=== PATIENT | female | born 1955 | race Caucasian/White ===

== ENCOUNTER 2023-07-04 11:39 | Outpatient (OUT) | payer MEDICARE, SELFPAY ==
--- NOTE | 2023-07-04 11:45 | MM_ITS ---
Patient: LILLIAM PACHECO Exam Date: 07/04/2023 : 1955 Gender:F Ordering : DR JEREMIAS LOW M.D. Admission #: [id number] Family : Order #: [id number] CLICK HERE TO VIEW EXAM RADIOLOGY REPORT PROCEDURE: MM TOMOSYNTHESIS SCREENING BI COMPARISON: MG MAMM SCREEN 3D DEYSI CAD, 06/01/2021. MG MAMM SCREEN DEYSI W CAD, 02/24/2019. MG MAMM DEYSI SCRN W CAD DIG, 05/05/2016. MAMMO DEYSI SCREEN, 12/05/2001. INDICATIONS: Screening Calculator Name NCI Breast Cancer Risk Assessment Tool 5 Year Breast Cancer Risk 4.00% Lifetime Breast Cancer Risk 13.30% Personal Breast Cancer No Personal Ovarian Cancer No Treatments None Family Cancers Mother with breast cancer at age ~30; Mother with lung cancer at age 61; Brother with sm. cell lung cancer at age 39; Brother with lung cancer at age 53; Brother with liver cancer at age 49; Grandmother-paternal with colon cancer at age ~60; Uncle-maternal with lung cancer at age ~50; Nephew with lung cancer at age 47. LOCATION: [facility] BREAST COMPOSITION: Heterogeneously dense,which may obscure small masses. FINDINGS: DIAGNOSTIC CATEGORY 2--BENIGN FINDING: RIGHT BREAST: No significant suspicious finding. Scattered benign-appearing calcifications are present. No significant change has occurred. LEFT BREAST: No significant suspicious finding. Scattered benign-appearing calcifications are present. No significant change has occurred. RECOMMENDATIONS: ROUTINE MAMMOGRAM AND CLINICAL EVALUATION IN 12 MONTHS. PLEASE NOTE: A NORMAL MAMMOGRAM DOES NOT EXCLUDE THE POSSIBILITY OF BREAST CANCER. A CLINICALLY SUSPICIOUS PALPABLE LUMP SHOULD BE BIOPSIED. Dictated by: Jacob Ortiz M.D. on 07/05/2023 at 11:49 Approved by: Jacob Ortiz M.D. on 07/05/2023 at 11:51
== END 2023-07-04 11:40 | disposition home or self-care (01) ==
LOC: MAMMO 11:39
PROVIDERS: PCP Internal Medicine; Visit Provider Internal Medicine
DX: Z12.31 Encounter for screening mammogram for malignant neoplasm of breast (principal); Z80.3 Family history of malignant neoplasm of breast; Z80.1 Family history of malignant neoplasm of trachea, bronchus and lung; Z80.0 Family history of malignant neoplasm of digestive organs
CPT/HCPCS: 77063; 77067

== ENCOUNTER 2023-08-07 13:50 | Outpatient (OUT) | payer MEDICARE, SELFPAY ==
--- NOTE | 2023-08-07 13:56 | CT_ITS ---
[address] [address] Patient Name: LILLIAM PACHECO MRN: [id number] date: 1955 Sex: F Assigned Patient Location: CT Current Patient Location: CT Accession/Order Number: [id number] Exam Date: 08/07/2023 14:03 Report Date: 08/07/2023 23:03 At the request of: IRENE MENDES Procedure: CT chest wo con EXAMINATION: CT chest wo con HISTORY: Recurrent Pneumonia J18.9 ; follow-up pneumonia; shortness of breath COMPARISON: CT chest 02/07/2023 TECHNIQUE: Multi-planar CT images were obtained without and/or with IV contrast as indicated by examination type. Axial, Coronal, and Sagittal images. Dose reduction techniques were achieved by using automated exposure control and/or adjustment of mA and/or kV according to patient size and/or use of iterative reconstruction technique. FINDINGS: LUNGS: Marked emphysematous changes bilaterally in stable biapical pleural scarring. Clearing of previously seen opacities within posterior lateral right upper lobe. PLEURA: No mass, effusion, or pneumothorax. VASCULATURE: No abnormality. SALIMA: No mass or adenopathy. MEDIASTINUM: No mass or adenopathy. CARDIAC: Atherosclerotic coronary artery disease. No cardiac enlargement or pericardial effusion. AORTA: No aneurysm or dissection. CHEST WALL: No mass or axillary adenopathy. BONES: Subacute, healing fractures of the right ninth rib and the left 5th through 10th ribs. LIMITED ABDOMEN: No suspicious findings Limited images of the upper abdomen. OTHER: Negative. CT/CT chest wo con IMPRESSION: 1. Clearing of previously seen mild infiltrates. 2. Chronic marked emphysematous changes. 3. Multiple bilateral subacute healing rib fractures. Electronically authenticated by: WESTLEY COLLINS Date: 08/07/2023 23:03
== END 2023-08-07 13:51 | disposition home or self-care (01) ==
LOC: CT 13:50
PROVIDERS: PCP Internal Medicine; Visit Provider Internal Medicine Sleep Medicine
DX: J18.9 Pneumonia, unspecified organism (principal)
CPT/HCPCS: 71250

== ENCOUNTER 2023-09-10 15:40 | Observation (INO) | payer MEDICARE, OTHER, SELFPAY ==
[2023-09-10] VITALS (21 sets, daily range): BP systolic 133–164; BP diastolic 87–114; PULSE 83–97; RESP 13–24; TEMP 36.7–36.8; O2SAT 92–100; BMI 22.3
--- NOTE | 2023-09-10 15:59 | ECG_ITS ---
[facility] Test Date: 2023-09-10 Pat Name: LILLIAM PACHECO Department: Room: - Gender: Female [place]: : 1955 Requested By: JEREMIAS LOW Order Number: [id number] Reading MD: SANDEEP HUTCHINSON Measurements Intervals [place] Rate: 91 P: 80 DE: 172 QRS: 80 QRSD: 72 T: 70 QT: 346 QTc: 395 Interpretive Statements 1100 Sinus rhythm 9110 normal ECG No previous ECG available for comparison Electronically Signed On 09-11-2023 7:10:16 EST by SANDEEP HUTCHINSON
--- NOTE | 2023-09-10 15:59 | XR_ITS ---
The [address] [address] Patient Name: LILLIAM PACHECO MRN: [id number] date: 1955 Sex: F Assigned Patient Location: ER Current Patient Location: ER Accession/Order Number: [id number] Exam Date: 09/10/2023 16:09 Report Date: 09/10/2023 16:43 At the request of: HARSH SANCHEZ Procedure: XR chest 1V EXAM: XR chest 1V HISTORY: . SOB, COPD . COMPARISON: 01/22/2023 TECHNIQUE: Single view of the chest. FINDINGS: Heart and vascularity are unremarkable. Left lung is unremarkable. There is a small amount of increased density in the right cost phrenic angle. Right upper lobe is unremarkable. Atherosclerotic changes of the thoracic aorta are noted. XR/XR chest 1V Impression: 1. Small amount of increased density in the right costophrenic angle most likely representing atelectasis. Less likely would be an early infiltrate. 2. The remainder of the lung ambrocio are unremarkable. Electronically authenticated by: SILVINO JANE Date: 09/10/2023 16:43
--- NOTE | 2023-09-10 16:00 | ED.SOB1 ---
HPI - SOB/Dyspnea General Chief Complaint: Shortness of Breath/Dyspnea Stated Complaint: sob Time Seen by Provider: 09/10/23 15:50 Source: patient Mode of arrival: walk-in Limitations: no limitations History of Present Illness HPI Narrative: 68-year-old female presents for shortness of breath which began yesterday. She has a history of chronic obstructive pulmonary disease and uses nebulizers and inhalers at home. She has not had a fever or hemoptysis and exertion makes her symptoms worse. She was visiting her son who is in the hospital and she was short of breath and the nurse encouraged her to come to the emergency department be evaluated. She's not complaining of chest pain. Related Data Allergies Allergy/AdvReac Type Severity Reaction Status Date / Time No Known Drug Allergies Allergy Verified 09/10/23 15:44 Review of Systems ROS Narrative A ten point review of systems is negative except as noted above. Exam Narrative Exam Narrative: Nurses note and vital signs reviewed and patient is not hypoxic. General: The patient appears dyspneic. Skin: Warm, dry, no pallor noted. There is no rash noted. Head: Normocephalic, atraumatic Eye: Normal conjunctiva, no drainage Ears, Nose, Mouth, and Throat: oral mucosa is moist. Nares patent. Cardiovascular: Regular Rate and Rhythm Respiratory: breath sounds are quite diminished bilaterally but equal. She has difficulty taking in deep breaths. Back: non-tender GI: soft and nontender Musculoskeletal: The patient has no evidence of calf tenderness, no pitting edema, symmetrical pulses noted bilaterally Neurological: A&O, normal speech Psychiatric: Cooperative Constitutional Vital Signs, click to edit/add: Last Vital Signs Temp 98.3 F 09/10/23 15:44 Pulse 83 09/10/23 16:25 Resp 18 09/10/23 16:25 BP 146/99 H 09/10/23 15:44 Pulse Ox 99 09/10/23 16:25 O2 Del Method Nasal Cannula 09/10/23 15:44 O2 Flow Rate 2 09/10/23 15:44 Course Vital Signs Vital signs: Vital Signs Temperature 98.3 F 09/10/23 15:44 Pulse Rate 94 H 09/10/23 15:44 Respiratory Rate 24 09/10/23 15:44 Blood Pressure 146/99 H 09/10/23 15:44 Pulse Oximetry 96 09/10/23 15:44 Oxygen Delivery Method Nasal Cannula 09/10/23 15:44 Oxygen Delivery Flow Rate 2 09/10/23 15:44 Temperature 98.3 F 09/10/23 15:44 Pulse Rate 83 09/10/23 16:25 Respiratory Rate 18 09/10/23 16:25 Blood Pressure 146/99 H 09/10/23 15:44 Pulse Oximetry 99 09/10/23 16:25 Oxygen Delivery Method Nasal Cannula 09/10/23 15:44 Oxygen Delivery Flow Rate 2 09/10/23 15:44 MDM - SOB/Dyspnea MDM Narrative Medical decision making narrative: The patient presents with chronic obstructive pulmonary disease exacerbation. She was given IV Solu-Medrol and aerosol treatments. Upon ambulation she became more dyspneic and pulse ox decreased slightly. There is a questionable infiltrate on x-ray so blood cultures were performed and she was given IV Rocephin and Zithromax and she'll be admitted. Treatment diagnosis and disposition were discussed with the patient. Differential Diagnosis Differential diagnosis: Likely acute exacerbation of chronic obstructive airways disease, congestive heart failure, community acquired pneumonia and other (Covid, influenza) Lab Data Attestation: I reviewed the patient's lab results. Labs: Lab Results 09/10/23 Range/Units 16:05 WBC 13.3 H (4.0-11.0) 10^3/uL RBC 3.87 L (4.20-5.40) 10^6/uL Hgb 12.3 (12.0-16.0) g/dL Hct 36.0 (36.0-48.0) % MCV 93.0 (81.0-99.0) fL MCH 31.8 (26.7-34.0) pg MCHC 34.2 (29.9-35.2) g/dL RDW 11.9 (11.0-15.0) % Plt Count 359 (150-450) 10^3/uL MPV 9.0 L (9.5-13.5) fL Neut % (Auto) 79.5 H (43.0-75.0) % Lymph % (Auto) 10.8 L (20.5-60.0) % Perkins % (Auto) 8.8 (1.7-12.0) % Eos % (Auto) 0.2 L (0.9-7.0) % Baso % (Auto) 0.3 (0.2-2.0) % Neut # (Auto) 10.6 H (1.4-6.5) 10^3/uL Lymph # (Auto) 1.4 (1.2-3.8) 10^3/uL [place] # (Auto) 1.2 H (0.3-0.8) 10^3/uL Eos # (Auto) 0.0 (0.0-0.7) 10^3/uL Baso # (Auto) 0.0 (0.0-0.1) 10^3/uL Abs Immat Gran (auto) 0.06 H (0.00-0.03) 10^3/uL Imm/Tot Granulo (auto) 0.4 (0.0-0.5) % Sodium 125 L (136-145) mmol/L Potassium 4.2 (3.5-5.1) mmol/L Chloride 90 L (98-107) mmol/L Carbon Dioxide 24.9 (21.0-32.0) mmol/L Anion Gap 14.3 BUN 6.0 L (7.0-18.0) mg/dL Creatinine 0.51 L (0.55-1.02) mg/dL Est GFR ( Amer) >60 (>=60) Est GFR (Non-Af Amer) >60 (>=60) BUN/Creatinine Ratio 11.8 Glucose 105 (74-106) mg/dL Calcium 9.5 (8.5-10.1) mg/dL Troponin I High Sens <4.0 L (4.0-51.3) pg/mL SARS-CoV-2 (PCR) Negative (NEGATIVE) Influenza Type A Ag Negative Influenza Type B Ag Negative Imaging Data Chest x-ray: Radiologist's impression: Procedure: XR chest 1V EXAM: XR chest 1V HISTORY: . SOB, COPD . COMPARISON: 01/22/2023 TECHNIQUE: Single view of the chest. FINDINGS: Heart and vascularity are unremarkable. Left lung is unremarkable. There is a small amount of increased density in the right cost phrenic angle. Right upper lobe is unremarkable. Atherosclerotic changes of the thoracic aorta are noted. Impression: 1. Small amount of increased density in the right costophrenic angle most likely representing atelectasis. Less likely would be an early infiltrate. 2. The remainder of the lung ambrocio are unremarkable. Electronically authenticated by: SILVINO JANE Date: 09/10/2023 16:43 ECG Data Attestation: I personally reviewed and interpreted this ECG as follows: (EKG on my interpretation shows sinus rhythm with a rate of 91 and no acute changes) Critical Care Time Critical Care Time Critical Care Time: Yes Total Critical Care Time: 35 Attestation: Due to the high probability of sudden and clinically significant deterioration in the patient's condition he/she required the highest level of my preparedness to intervene urgently I provided critical care time including documentation time, medication orders and management, reevaluation, vital sign assessment, ordering and reviewing of lab tests, ordering and reviewing of x-ray studies, and admission orders. Aggregate critical care time is 35 minutes including only time during which I was engaged in work directly related to his/her care and did not include time spent treating other patients simultaneously. Discharge Plan Discharge Chief Complaint: Shortness of Breath/Dyspnea Clinical Impression: Acute exacerbation of chronic obstructive pulmonary disease Patient Disposition: Admitted as Observation Time of Disposition Decision: 17:27 Condition: Fair
[2023-09-10] MEDS: METHYLPREDNISOLONE SOD SUCC PF 125 MG/2 ML VIAL IVP ×2 (16:15→22:10)
[2023-09-10] MEDS: ALBUTEROL SULFATE 2.5 MG/3 ML VIAL NEB IH (16:25)
[2023-09-10 16:29] LABS: Basophils Percent Auto 0.3 % (0.2-2.0); Eosinophils Percent Auto 0.2 % (0.9-7.0); Hemoglobin 12.3 g/dL (12.0-16.0); Immature Granulocytes Abs Auto 0.06 10^3/uL (0.00-0.03); Immature Granulocytes Pct Auto 0.4 % (0.0-0.5); Lymphocytes Absolute Auto 1.4 10^3/uL (1.2-3.8); Lymphocytes Percent Auto 10.8 % (20.5-60.0); Mean Corpuscular HGB Conc 34.2 g/dL (29.9-35.2); Mean Corpuscular Hemoglobin 31.8 pg (26.7-34.0); Monocytes Absolute Auto 1.2 10^3/uL (0.3-0.8); Monocytes Percent Auto 8.8 % (1.7-12.0); Neutrophils Absolute Auto 10.6 10^3/uL (1.4-6.5); Neutrophils Percent Auto 79.5 % (43.0-75.0); Platelet Count 359 10^3/uL (150-450); Red Blood Count 3.87 10^6/uL (4.20-5.40); Red Cell Distribution Width 11.9 % (11.0-15.0); White Blood Count 13.3 10^3/uL (4.0-11.0)
[2023-09-10 16:42] LABS: Influenza Virus A Antigen Negative; Influenza Virus B Antigen Negative; Internal Control Within Normal Limits; SARS-CoV-2 Ag NEGATIVE (NEGATIVE)
[2023-09-10 16:49] LABS: Anion Gap 14.3; BUN Creatinine Ratio 11.8; Calcium 9.5 mg/dL (8.5-10.1); Carbon Dioxide 24.9 mmol/L (21.0-32.0); Chloride 90 mmol/L (98-107); Estimated GFR (African America >60 (>=60); Estimated GFR (Non-African Ame >60 (>=60); Glucose 105 mg/dL (74-106); Potassium 4.2 mmol/L (3.5-5.1); Sodium 125 mmol/L (136-145)
[2023-09-10 16:52] LABS: Troponin I High Sensitivity <4.0 pg/mL (4.0-51.3)
[2023-09-10] MEDS: CEFTRIAXONE 1,000 MG in 0.9 % SODIUM CHLORIDE 50 ML 100 MG IV (17:45)
[2023-09-10] MEDS: AZITHROMYCIN 500 MG in 0.9 % SODIUM CHLORIDE 250 ML 250 MG IV (18:26)
[2023-09-10] MEDS: 0.9 % SODIUM CHLORIDE 1,000 ML 100 ML IV (19:09)
[2023-09-10] MEDS: CLONAZEPAM 0.5 MG TABLET PO (19:14)
[2023-09-10 19:24] LABS: Lactate/Lactic Acid 1.1 mmol/L (0.4-2.0)
[2023-09-10 19:32] LABS: Free T3 1.62 pg/mL (2.18-3.98); Thyroid Stimulating Hormone 0.573 uIU/mL (0.358-3.740)
--- NOTE | 2023-09-10 19:40 | P.HP_ITS ---
H&P: HPI History of Present Illness Chief complaint: sob COPD EXACERBATION Narrative: Patient had about a 2-day history of increasing cough and shortness of breath. No sputum production, just more the shortness of breath. In ER found to have acute exacerbation of COPD with likely right lower lobe pneumonia on chest x- ray, patient with some mild conversational dyspnea on my exam Review of Systems ROS Status of ROS 10 or more systems reviewed and unremark able except as noted in history and below PFSH PFSH Social History Highest level of school completed/degree received: some college, no degree Meds Home Medications and Allergies Home Medications Medication Instructions Recorded Confirmed Type albuterol sulfate 90 mcg/actuation 2 inh inhalation Q4H PRN shortness 09/10/23 09/10/23 History aerosol inhaler of breath or wheezing clonazepam 0.5 mg tablet 0.5 mg PO Q8H PRN anxiety 09/10/23 09/10/23 History escitalopram oxalate 20 mg tablet 20 mg PO DAILY 09/10/23 09/10/23 History levothyroxine 88 mcg tablet 88 mcg PO DAILY 09/10/23 09/10/23 History metoprolol succinate 25 mg 25 mg PO DAILY 09/10/23 09/10/23 History tablet,extended release 24 hr Allergies Allergy/AdvReac Type Severity Reaction Status Date / Time No Known Drug Allergies Allergy Verified 09/10/23 15:44 Exam Constitutional Vital Signs, click to edit/add: Last Vital Signs Temp 98.1 F 09/10/23 19:30 Pulse 97 H 09/10/23 19:30 Resp 20 09/10/23 19:30 BP 133/87 09/10/23 19:30 Pulse Ox 94 L 09/10/23 19:30 O2 Del Method Nasal Cannula 09/10/23 19:30 O2 Flow Rate 3 09/10/23 19:30 Documenting provider has reviewed patient's vital signs: yes Common normals: apparent distress (Mild conversational dyspnea) Exam limitations: no altered mental status Chest Common normals: inspection of chest normal Respiratory Common normals: no use of accessory muscles; abnormal respiratory effort (Mild dyspnea) and not clear to ascultation bilaterally Auscultation: rhonchi and egophony right lower Cardio Common normals: regular rate, regular rhythm and no murmurs GI Common normals: Normal to inspection, nondistended, normoactive bowel sounds present Extremity Common normals: normal to inspection Results Labs Labs: Short CBC 09/10/23 Range/Units 16:05 WBC 13.3 H (4.0-11.0) 10^3/uL Hgb 12.3 (12.0-16.0) g/dL Hct 36.0 (36.0-48.0) % Plt Count 359 (150-450) 10^3/uL BMP 09/10/23 16:05 Sodium 125 L Potassium 4.2 Chloride 90 L Carbon Dioxide 24.9 BUN 6.0 L Creatinine 0.51 L Glucose 105 Calcium 9.5 Assessment and Plan Assessment and Plan (1) Acute exacerbation of chronic obstructive pulmonary disease: Plan Acute hypoxia, she is on 2 L normally requiring 3 L here, leukocytosis, significant hyponatremia secondary to acute exacerbation of COPD secondary to community-acquired right lower lobe pneumonia-IV antibiotics, steroids, aerosols, try to obtain sputum sample Significant hyponatremia-check urine sodium, patient does states she not been taking in as much fluid or salt lately. IV fluids overnight. Check BNP. Hypothyroidism-check levels Hypertension-continue with home medication Start patient office in observation status, she is on 3 L currently wears 2 L at home, 50-50 chance she will be improved by tomorrow possible discharge
[2023-09-10] MEDS: L. ACIDOPHILUS/L.BULGARICUS 1 PACKET GRAN.PACK PO (20:10)
[2023-09-10] MEDS: BENZONATATE 100 MG CAPSULE 200 MG PO (20:10)
[2023-09-10] MEDS: TEMAZEPAM 15 MG CAPSULE PO (20:10)
[2023-09-10 20:29] LABS: Bilirubin Urine NEGATIVE (NEGATIVE); Blood Urine TRACE-I (NEGATIVE); Clarity Urine CLEAR (CLEAR); Color Urine LT. YELLOW (YELLOW); Glucose Urine UA NEGATIVE (NEGATIVE); Ketones Urine 15 mg/dL (NEGATIVE); Leukocyte Esterase Urine SMALL (NEGATIVE); Nitrite Urine NEGATIVE (NEGATIVE); Protein Urine NEGATIVE (NEG/TRACE); Urine Microscopic Indicated YES; Urobilinogen Urine 0.2 EU/dL (0.2-1.0)
[2023-09-10 20:32] LABS: Sodium Urine Random 38 mmol/L (30-90)
[2023-09-10 20:34] LABS: WBC Urine 0-2 #/HPF (NONE SEEN)
[2023-09-10 20:35] LABS: Bacteria Urine NONE SEEN #/HPF (NONE SEEN); Cast Seen? NONE SEEN #/LPF (NONE SEEN); Crystals Seen? None Seen #/HPF (None Seen); Mucus Urine NONE SEEN (NONE SEEN); RBC Urine 0-2 #/HPF (0-2); Squamous Epithelial Cell Urine NONE SEEN #/LPF (NONE/RARE)
[2023-09-10] MEDS: IPRATROPIUM/ALBUTEROL SULFATE 3 ML AMPUL.NEB IH (23:14)
[2023-09-11] VITALS (8 sets, daily range): BP systolic 134–160; BP diastolic 78–108; PULSE 86–114; RESP 18–20; TEMP 36.6–36.9; O2SAT 95–98
[2023-09-11] MEDS: IPRATROPIUM/ALBUTEROL SULFATE 3 ML AMPUL.NEB IH ×4 (04:30→23:27)
[2023-09-11 04:52] LABS: Hematocrit 34.5 % (36.0-48.0); Hemoglobin 11.4 g/dL (12.0-16.0); Mean Corpuscular Volume 93.8 fL (81.0-99.0); Platelet Count 349 10^3/uL (150-450); Red Blood Count 3.68 10^6/uL (4.20-5.40); Red Cell Distribution Width 11.8 % (11.0-15.0); White Blood Count 5.9 10^3/uL (4.0-11.0)
[2023-09-11 04:55] LABS: Anion Gap 14.1; BUN Creatinine Ratio 10.2; Calcium 8.7 mg/dL (8.5-10.1); Carbon Dioxide 26.7 mmol/L (21.0-32.0); Chloride 94 mmol/L (98-107); Estimated GFR (African America >60 (>=60); Estimated GFR (Non-African Ame >60 (>=60); Glucose 173 mg/dL (74-106); Potassium 3.8 mmol/L (3.5-5.1); Sodium 131 mmol/L (136-145)
[2023-09-11] MEDS: BENZONATATE 100 MG CAPSULE 200 MG PO ×3 (05:02→20:20)
[2023-09-11] MEDS: LEVOTHYROXINE SODIUM 88 MCG TABLET PO (05:02)
[2023-09-11] MEDS: 0.9 % SODIUM CHLORIDE 1,000 ML 100 ML IV ×2 (05:02→15:19)
[2023-09-11] MEDS: METHYLPREDNISOLONE SOD SUCC PF 125 MG/2 ML VIAL IVP (05:02)
[2023-09-11 05:48] LABS: Band Neutrophils Absolute 0.2 10^3/uL (0.0-0.3); Lymphocytes Absolute Manual 0.23 10^3/uL (1.20-3.80); Monocytes Absolute Manual 0.05 10^3/uL (0.30-0.80); Segmented Neut Absolute Manual 5.36 10^3/uL (1.4-6.5)
--- NOTE | 2023-09-11 08:59 | P.PN_ITS ---
<Statement entered by Reji Guajardo MD - 09/11/23 20:32> This documentation has been reviewed and approved. Pt seen and valuated - agree with findings and notes form [employer] Additions: Lungs - lower lobe rhonchi with egophony RLL Possibel acute uti - + LE - see cx results tomorrow Progress Note: Subjective Subjective Interval history: 09/11/23 0810 Patient is sitting on the side of the bed having just returned from using the bedside commode. She reports improvement in symptoms but continues to be short of breath with minimal exertion. She is able to complete full sentences but increased work of breathing was initially noted that resolved with rest. She is back to her baseline 2L O2 supplementation at the time of exam but still dyspneic with exertion. She will likely benefit from 1 more night in observation care and plan discharge tomorrow. Exam Constitutional Vital Signs, click to edit/add: Last Vital Signs Temp 98 F 09/11/23 05:07 Pulse 86 09/11/23 05:07 Resp 18 09/11/23 05:07 BP 134/78 09/11/23 05:07 Pulse Ox 95 09/11/23 05:07 O2 Del Method Nasal Cannula 09/11/23 05:07 O2 Flow Rate 2 09/11/23 05:07 Common normals: no apparent distress, oriented x3 and alert General appearance: cooperative Orientation/consciousness: Yes awake HENNE Common normals: normocephalic, head/scalp atraumatic and hearing grossly normal bilaterally Eye Common normals: PERRL, EOMs intact bilaterally, conjunctivae normal and no scleral icterus Chest Common normals: inspection of chest normal Chest: symmetrical chest wall rise Respiratory Common normals: no use of accessory muscles and clear to auscultation bilaterally Auscultation: diminished lung sounds (Very dim throughout; poor air exchange); no wheezes Cardio Common normals: regular rate, regular rhythm, S1 normal heart sound, S2 normal heart sound, no murmurs and peripheral pulses 2+ throughout GI Common normals: Normal to inspection, nondistended, normoactive bowel sounds present, soft to palpation, non-tender and no hepatosplenomegaly Bladder/kidney exam: bladder normal to palpation Extremity Common normals: normal to inspection and no calf tenderness General: edema (Tr-1+ bilat insteps); no clubbing and no cyanosis Neuro Common normals: CN's II-XII intact bilaterally, moves all extremities, no focal motor deficits and no sensory deficits noted Psych Common normals: mental status grossly normal Progress Note: Objective Labs Labs: Short CBC 09/10/23 09/11/23 Range/Units 16:05 04:33 WBC 13.3 H 5.9 (4.0-11.0) 10^3/uL Hgb 12.3 11.4 L (12.0-16.0) g/dL Hct 36.0 34.5 L (36.0-48.0) % Plt Count 359 349 (150-450) 10^3/uL BMP 09/10/23 09/11/23 16:05 04:33 Sodium 125 L 131 L Potassium 4.2 3.8 Chloride 90 L 94 L Carbon Dioxide 24.9 26.7 BUN 6.0 L 5.0 L Creatinine 0.51 L 0.49 L Glucose 105 173 H Calcium 9.5 8.7 Urine 09/10/23 Range/Units 20:16 Urine Color Lt. yellow (YELLOW) Urine Clarity Clear (CLEAR) Urine pH 7.0 (5.0-9.0) Ur Specific [place] 1.010 (1.005-1.025) Urine Protein Negative (NEG/TRACE) mg/dL Urine Glucose (UA) Negative (NEGATIVE) mg/dL Progress Note: A&P Assessment and Plan (1) Acute exacerbation of chronic obstructive pulmonary disease: Assessment and Plan: ACUTE * Improving * Back to home O2 w/ 2L * Dyspnea w/ minimal excertion persists * Continue scheduled duonebs * Titrate solu-medrol down to 80 mg q6h * See Pneumonia for ABX (2) Pneumonia: Assessment and Plan: ACUTE * Improving * Continue Rocephin and Azithromycin IVPB * Duonebs scheduled * Sputum culture ordered - no sample collected to date * Pt afebrile * Leukocytosis resolved Qualifiers: Laterality: right Lung location: lower lobe of lung Pneumonia type: due to unspecified organism Qualified Code(s): J18.9 - Pneumonia, unspecified organism (3) Acute on chronic hypoxic respiratory failure: Assessment and Plan: ACUTE * Resolving * Required 3-4 liters on admission * Baseline O2 delivery is 2 liters * Weaned back to home O2 of 2 liters today * Persistent dyspnea w/ minimal exertion (4) Hyponatremia: Assessment and Plan: ACUTE * Resolving * Na 132 today, up from 125 on admission * Urine Na WNL * Suspect 2/2 dehydration * Continue NS IVF at 100/hr (5) Hypothyroid: Assessment and Plan: CHRONIC * Continue home levothyroxine Qualifiers: Hypothyroidism type: unspecified Qualified Code(s): E03.9 - Hypothyroidism, unspecified (6) Hypertension: Assessment and Plan: CHRONIC * Continue home metoprolol succ Qualifiers: Hypertension type: primary hypertension Qualified Code(s): I10 - Essential (primary) hypertension (7) Depression with anxiety: Assessment and Plan: CHRONIC * Continue home Lexapro and PRN clonazepam (8) Tobacco dependence: Assessment and Plan: CHRONIC * Continue nicotine patch * Tobacco cessation advised
[2023-09-11] MEDS: ACETAMINOPHEN 500 MG TABLET 1000 MG PO ×2 (09:52→21:11)
[2023-09-11] MEDS: L. ACIDOPHILUS/L.BULGARICUS 1 PACKET GRAN.PACK PO ×2 (09:53→20:20)
[2023-09-11] MEDS: CLONAZEPAM 0.5 MG TABLET PO ×2 (09:53→21:11)
[2023-09-11] MEDS: ESCITALOPRAM 10 MG TABLET 20 MG PO (09:53)
[2023-09-11] MEDS: METOPROLOL SUCCINATE 25 MG TAB.ER.24H PO (09:53)
[2023-09-11 10:47] LABS: A. calcoaceticus-baumannii Cpx NOT DETECTED (NOT DETECTE); Bacteroides fragilis NOT DETECTED (NOT DETECTE); Enterobacter cloacae complex NOT DETECTED (NOT DETECTE); Enterobacterales NOT DETECTED (NOT DETECTE); Enterococcus faecalis NOT DETECTED (NOT DETECTE); Enterococcus faecium NOT DETECTED (NOT DETECTE); Haemophilus influenzae NOT DETECTED (NOT DETECTE); Klebsiella aerogenes NOT DETECTED (NOT DETECTE); Klebsiella pneumoniae group NOT DETECTED (NOT DETECTE); Listeria monocytogenes NOT DETECTED (NOT DETECTE); Proteus spp. NOT DETECTED (NOT DETECTE); Salmonella spp. NOT DETECTED (NOT DETECTE); Serratia marcescens NOT DETECTED (NOT DETECTE); Staphylococcus epidermidis NOT DETECTED (NOT DETECTE); Staphylococcus lugdunensis NOT DETECTED (NOT DETECTE); Streptococcus agalactiae NOT DETECTED (NOT DETECTE); Streptococcus pneumoniae NOT DETECTED (NOT DETECTE); Streptococcus pyogenes NOT DETECTED (NOT DETECTE); Streptococcus spp. NOT DETECTED (NOT DETECTE)
[2023-09-11 10:48] LABS: Candida albicans NOT DETECTED (NOT DETECTE); Candida auris NOT DETECTED (NOT DETECTE); Candida glabrata NOT DETECTED (NOT DETECTE); Candida krusei NOT DETECTED (NOT DETECTE); Candida parapsilosis NOT DETECTED (NOT DETECTE); Candida tropicalis NOT DETECTED (NOT DETECTE); Cryptococcus neoformans/gattii NOT DETECTED (NOT DETECTE); Neisseria meningitidis NOT DETECTED (NOT DETECTE); Pseudomonas aeruginosa NOT DETECTED (NOT DETECTE); Stenotrophomonas maltophilia NOT DETECTED (NOT DETECTE)
[2023-09-11 12:03] LABS: Source BLOOD; Staphylococcus spp. DETECTED (NOT DETECTE)
--- NOTE | 2023-09-11 13:14 | CM.NOTE ---
Medicare Observation Notice discussed with pt, pt verbalizes understanding and signs paper. Original given to pt and copy placed on pt's chart.
[2023-09-11] MEDS: METHYLPREDNISOLONE SOD SUCC PF 125 MG/2 ML VIAL 80 MG IVP ×3 (13:44→23:26)
[2023-09-11] MEDS: IBUPROFEN 400 MG TABLET PO (14:29)
[2023-09-11] MEDS: AZITHROMYCIN 500 MG in 0.9 % SODIUM CHLORIDE 250 ML 250 MG IV (15:17)
[2023-09-11] MEDS: CEFTRIAXONE 1,000 MG in 0.9 % SODIUM CHLORIDE 50 ML 100 MG IV (16:43)
[2023-09-11] MEDS: TEMAZEPAM 15 MG CAPSULE PO (20:20)
[2023-09-12 04:27] VITALS: PULSE 102; RESP 16; O2SAT 94
[2023-09-12] MEDS: IPRATROPIUM/ALBUTEROL SULFATE 3 ML AMPUL.NEB IH ×2 (04:27→11:48)
[2023-09-12 04:35] LABS: Basophils Percent Auto 0.1 % (0.2-2.0); Hematocrit 30.8 % (36.0-48.0); Hemoglobin 10.7 g/dL (12.0-16.0); Immature Granulocytes Abs Auto 0.07 10^3/uL (0.00-0.03); Immature Granulocytes Pct Auto 0.5 % (0.0-0.5); Lymphocytes Absolute Auto 0.4 10^3/uL (1.2-3.8); Lymphocytes Percent Auto 3.1 % (20.5-60.0); Mean Corpuscular HGB Conc 34.7 g/dL (29.9-35.2); Mean Corpuscular Hemoglobin 32.4 pg (26.7-34.0); Mean Corpuscular Volume 93.3 fL (81.0-99.0); Mean Platelet Volume 9.1 fL (9.5-13.5); Monocytes Absolute Auto 0.3 10^3/uL (0.3-0.8); Monocytes Percent Auto 2.1 % (1.7-12.0); Neutrophils Absolute Auto 13.2 10^3/uL (1.4-6.5); Neutrophils Percent Auto 94.2 % (43.0-75.0); Platelet Count 352 10^3/uL (150-450); Red Cell Distribution Width 12.1 % (11.0-15.0)
[2023-09-12 04:40] VITALS: PULSE 107; RESP 18; O2SAT 96
[2023-09-12 04:48] LABS: Anion Gap 13.3; BUN Creatinine Ratio 12.2; Calcium 9.3 mg/dL (8.5-10.1); Carbon Dioxide 25.8 mmol/L (21.0-32.0); Chloride 100 mmol/L (98-107); Estimated GFR (African America >60 (>=60); Estimated GFR (Non-African Ame >60 (>=60); Glucose 167 mg/dL (74-106); Potassium 3.1 mmol/L (3.5-5.1); Sodium 136 mmol/L (136-145)
[2023-09-12] MEDS: 0.9 % SODIUM CHLORIDE 1,000 ML 75 ML IV (05:17)
[2023-09-12] MEDS: METHYLPREDNISOLONE SOD SUCC PF 125 MG/2 ML VIAL 80 MG IVP (05:17)
[2023-09-12] MEDS: LEVOTHYROXINE SODIUM 88 MCG TABLET PO (05:18)
[2023-09-12] MEDS: BENZONATATE 100 MG CAPSULE 200 MG PO (05:18)
[2023-09-12 05:31] VITALS: BP 150/92; PULSE 111; RESP 18; TEMP 37.1; O2SAT 94
[2023-09-12 08:00] VITALS: PULSE 84; RESP 18
--- NOTE | 2023-09-12 08:53 | P.DS_ITS ---
<Statement entered by Reji Guajardo MD - 09/13/23 05:53> Pt seen and examined: agree with input and findings from [employer] Close F/U with PCP recommended to avoid readmission This documentation has been reviewed and approved. DS: Providers Provider Date of admission: 09/10/23 18:17 Primary care physician: JEREMIAS LOPEZ Discharging clinician: Sharlene Arguello DS: Diagnosis Discharge Diagnosis (1) Acute exacerbation of chronic obstructive pulmonary disease: (2) Pneumonia: Qualifiers: Laterality: right Lung location: lower lobe of lung Pneumonia type: due to unspecified organism Qualified Code(s): J18.9 - Pneumonia, unspecified organism (3) Acute on chronic hypoxic respiratory failure: (4) Hyponatremia: (5) Hypothyroid: Qualifiers: Hypothyroidism type: unspecified Qualified Code(s): E03.9 - Hypothyroidism, unspecified (6) Hypertension: Qualifiers: Hypertension type: primary hypertension Qualified Code(s): I10 - Essential (primary) hypertension (7) Depression with anxiety: (8) Tobacco dependence: DS: Summary Hospital Course Hospital Course: The patient was admitted to observation with mild COPD exacerbation and right lower lobe pneumonia, as well as hyponatremia. She was treated with IV fluids for suspected underlying dehydration, IVPB Rocephin and azithromycin, high-dose IVP steroids and scheduled breathing treatments. She uses 2 L of O2 supplementation at home continuously but initially on admission was requiring higher O2 supplementation. She has been weaned back to her usual 2 L of O2 and her work of breathing is at or near baseline. She continues to have dyspnea with exertion but this is normal for this patient with her advanced lung disease. Tobacco cessation was advised. Her hyponatremia resolved with IVF administration. Her TSH and FT4 were WNL, but FT3 was low. We suspect NTI as etiology and defer to her PCP to follow up with repeat labs or levothyroxine adjustment as indicated. She is being discharged home in stable condition with a prescription for 2 more days of azithromycin and 10-day course of cefdinir for pneumonia and COPD exacerbation. She is also prescribed a 4-day burst of prednisone. The patient is to follow-up with her PCP within 7 days. Time spent discussing smoking cessation with patient: 3 to 10 minutes Time Spent with Patient Time attestation: Total time spent providing and/or coordinating discharge services: Time spent: greater than 30 minutes Specific discharge activities: Physical exam, discussion of discharge plan, questions answered. Exam Constitutional Vital Signs, click to edit/add: Last Vital Signs Temp 98.8 F 09/12/23 05:31 Pulse 84 09/12/23 08:00 Resp 18 09/12/23 08:00 BP 150/92 H 09/12/23 05:31 Pulse Ox 94 L 09/12/23 05:31 O2 Del Method Nasal Cannula 09/12/23 05:31 O2 Flow Rate 2 09/12/23 05:31 Common normals: no apparent distress, oriented x3 and alert General appearance: cooperative Orientation/consciousness: Yes awake HENMT Common normals: normocephalic and head/scalp atraumatic Eye Common normals: PERRL, EOMs intact bilaterally, conjunctivae normal and no scleral icterus Neck & C-Spine Common normals: no JVD Respiratory Common normals: normal respiratory effort and no use of accessory muscles Effort & inspection: able to speak in complete sentences and symmetric chest movement Auscultation: wheezes (Faint anterior inspiratory) and diminished lung sounds (BLL) Cardio Common normals: no JVD, regular rate, regular rhythm, S1 normal heart sound, S2 normal heart sound, no murmurs and peripheral pulses 2+ throughout GI Common normals: Normal to inspection, nondistended, normoactive bowel sounds present, soft to palpation and non-tender Palpation: soft Bladder/kidney exam: bladder normal to palpation Extremity Common normals: normal to inspection, full ROM, normal capillary refill and no pedal edema General: no clubbing and no cyanosis Neuro Common normals: moves all extremities, no focal motor deficits and no sensory deficits noted Speech: speech normal Psych Common normals: mental status grossly normal and activity/motor behavior normal DS: Data Data Completed and Pending Labs on day of discharge: Labs from last 24 hours 09/12/23 09/10/23 04:12 17:35 WBC 14.0 H RBC 3.30 L Hgb 10.7 L Hct 30.8 L MCV 93.3 MCH 32.4 MCHC 34.7 RDW 12.1 Plt Count 352 MPV 9.1 L Neut % (Auto) 94.2 H Lymph % (Auto) 3.1 L [place] % (Auto) 2.1 Eos % (Auto) 0.0 L Baso % (Auto) 0.1 L Neut # (Auto) 13.2 H Lymph # (Auto) 0.4 L [place] # (Auto) 0.3 Eos # (Auto) 0.0 Baso # (Auto) 0.0 Abs Immat Gran (auto) 0.07 H Imm/Tot Granulo (auto) 0.5 Sodium 136 Potassium 3.1 L Chloride 100 Carbon Dioxide 25.8 Anion Gap 13.3 BUN 6.0 L Creatinine 0.49 L Est GFR ( Amer) >60 Est GFR (Non-Af Amer) >60 BUN/Creatinine Ratio 12.2 Glucose 167 H Calcium 9.3 Jimmie H. influenza (PCR) Not detected A.calcoaceticus-baumannii cmplx PCR Not detected Bacteroides fragilis Not detected Esperanza albicans (PCR) Not detected Esperanza auris (PCR) Not detected C. glabrata (PCR) Not detected C. krusei (PCR) Not detected C. parapsilosis (PCR) Not detected C. tropicalis (PCR) Not detected C. neoform/gattii (PCR) Not detected Enterobacterales (PCR) Not detected E. cloacae complex PCR Not detected Enterococc faecalis PCR Not detected Enterococc faecium PCR Not detected E. coli (PCR) Not detected Klebsiella aerogenes (PCR) Not detected Klebsiella oxytoca PCR Not detected K. pneumoniae group (PCR) Not detected List. monocytogenes PCR Not detected N. meningitidis (PCR) Not detected Proteus spp. (copies/mL) Not detected Salmonella spp. (PCR) Not detected Serratia marcescens PCR Not detected Staphylococcus sp PCR Detected A* Staph aureus (PCR) Not detected mecA/C & MREJ Resist Gene Not applicable mecA/C-Methicil Resis Gene Not applicable mcr-1 Colistin Res Gene PCR Not applicable Staph epidermidis (PCR) Not detected Staph lugdunensis (TEM-PCR) Not detected S. maltophilia (PCR) Not detected Streptococcus sp PCR Not detected Strep agalactiae (PCR) Not detected Strep pneumoniae (PCR) Not detected S. pyogenes (PCR) Not detected P. aeruginosa (PCR) Not detected Maximiliano/B-Vanco Res Genes Not applicable blaIMP Car res Gene PCR Not applicable KPC (blaKPC) Detect PCR Not applicable NDM (blaNDM) Detect PCR Not applicable OXA-48 Carbapenem Resis Gene (PCR) Not applicable blaVIM Car Res Gene PCR Not applicable CTX-M ESBL (PCR) Not applicable Imaging Chest x-ray: Radiologist's impression: Impression: 1. Small amount of increased density in the right costophrenic angle most likely representing atelectasis. Less likely would be an early infiltrate. 2. The remainder of the lung ambrocio are unremarkable. Additional Comments Additional comments: Leukocytosis 2/2 high dose steroid administration Discharge Plan Discharge Disposition: Home, Self-Care Condition: Fair Discharge Medications: New prednisone 10 mg tablet 40 mg PO DAILY 4 Days Qty: 16 0RF cefdinir 300 mg capsule 300 mg PO BID 10 Days Qty: 20 0RF azithromycin 500 mg tablet 500 mg PO DAILY 2 Days Qty: 2 0RF Spiriva Respimat 2.5 mcg/actuation mist 2 inh inhalation DAILY 30 Days Qty: 4 0RF albuterol sulfate 2.5 mg /3 mL (0.083 %) solution for nebulization 2.5 mg inhalation Q4H PRN (Reason: shortness of breath or wheezing) Qty: 90 0RF Continued clonazepam 0.5 mg tablet 0.5 mg PO Q8H PRN (Reason: anxiety) levothyroxine 88 mcg tablet 88 mcg PO DAILY metoprolol succinate 25 mg tablet extended release 24 hr 25 mg PO DAILY albuterol sulfate 90 mcg/actuation HFA aerosol inhaler 2 inh INHALATION Q4H PRN (Reason: shortness of breath or wheezing) escitalopram oxalate 20 mg tablet 20 mg PO DAILY Forms: Portal Instructions Follow Up Appointments: @ 3:15pm with Dr. Lopez [phone]
[2023-09-12] MEDS: POTASSIUM CHLORIDE 10 MEQ ER TABLET 40 MEQ PO (09:16)
[2023-09-12] MEDS: METOPROLOL SUCCINATE 25 MG TAB.ER.24H PO (09:16)
[2023-09-12] MEDS: L. ACIDOPHILUS/L.BULGARICUS 1 PACKET GRAN.PACK PO (09:16)
[2023-09-12] MEDS: ESCITALOPRAM 10 MG TABLET 20 MG PO (09:16)
[2023-09-12 11:52] VITALS: PULSE 102; O2SAT 94
[2023-09-12 15:49] LABS: SARS-CoV-2 NAA NOT DETECTED (NOT DETECTE)
--- NOTE | 2023-09-13 13:25 | CM.DCFOLLOWU ---
Person spoke with: patient How are you feeling? i am feeling better today How is your pain? none Did you understand your discharge instructions? yes Do you have any questions about your discharge instructions? no Were you given any prescriptions at discharge? yes Were you able to get your prescriptions filled? yes Do you understand how to take your medications as ordered? no. I read all of the instructions and understand and took them all this morning. Do you have any questions about your follow up appointment and do you plan to keep your follow up appointment? No questions. I plan on keeping my appointment with Dr. Lopez. Is there anything else that you would like to discuss? no Questions/Comments/Concerns/Other: n/a
== END 2023-09-12 13:22 | disposition home or self-care (01) ==
LOC: ER 17:27 → MS 18:24
PROVIDERS: Admitting Provider Family Medicine; Emergency Provider Emergency Medicine; PCP Internal Medicine; Visit Provider Nurse Practitioner
DX: J18.9 Pneumonia, unspecified organism (principal); J44.1 Chronic obstructive pulmonary disease with (acute) exacerbation; E87.1 Hypo-osmolality and hyponatremia; E03.9 Hypothyroidism, unspecified; I10 Essential (primary) hypertension; J96.21 Acute and chronic respiratory failure with hypoxia; F32.A Depression, unspecified; F41.9 Anxiety disorder, unspecified; F17.210 Nicotine dependence, cigarettes, uncomplicated; J44.0 Chronic obstructive pulmonary disease with (acute) lower respiratory infection; Z99.81 Dependence on supplemental oxygen; D72.829 Elevated white blood cell count, unspecified; Z20.822 Contact with and (suspected) exposure to COVID-19; Z79.899 Other long term (current) drug therapy; Z79.890 Hormone replacement therapy; Z23 Encounter for immunization
CPT/HCPCS: 36415; 71045; 80048; 81001; 83605; 83735; 83880; 84300; 84436; 84443; 84481; 84484; 85025; 85027; 87040; 87070; 87086; 87150; 87186; 87635; 87804; 87811; 90662; 93005; 94640; 94667; 94668; 94761; 96365; 96366; 96367; 96375; 96376; 99285; G0008; G0378; J0456; J2930

== ENCOUNTER 2024-03-07 12:32 | Outpatient (OUT) | payer MEDICARE, OTHER, SELFPAY ==
--- NOTE | 2024-03-07 12:36 | XR_ITS ---
[address] [address] Patient Name: LILLIAM PACHECO MRN: [id number] date: 1955 Sex: F Assigned Patient [facility]: [facility] Current Patient Location: Accession/Order Number: [id number] Exam Date: 03/07/2024 12:48 Report Date: 03/10/2024 07:46 At the request of: JEREMIAS LOW Procedure: XR DEXA axial skeleton EXAMINATION: XR DEXA axial skeleton HISTORY: Estrogen deficiency, E28.39 COMPARISON: DEXA bone densitometry 06/01/2021 TECHNIQUE: Dual-energy X-ray absorptiometry (DXA) was performed. FINDINGS: SPINE ANALYSIS: Average bone mineral density is 1.016 g/cm2. T-score (standard deviation relative to young adult mean): -1.4 . -0.2% change since prior study. HIP ANALYSIS: Lowest bone mineral density is within the left femoral neck, 0.605 g/cm2. T-score (standard deviation relative to young adult mean): -3.1 . -11.5% change since prior study. XR/XR DEXA axial skeleton IMPRESSION: [place] [employer] Classification: Osteoporosis - High Fracture Risk FRAX: Electronically authenticated by: WESTLEY COLLINS Date: 03/10/2024 07:46
--- OUTSIDE RECORDS SUMMARY | 2024-03-07 12:48 | XMS_ITS | CCD ---
Author Organization [facility] Care Team Providers Care Records Officer Name Role Phone Allyssa Moreno Unavailable DANIEL LOPEZ Primary Care Unavailable VAUGHN, DR BONILLA Attending Unavailable VAUGHN, DR BONILLA Consulting Unavailable VAUGHN, DR BONILLA Admitting Unavailable DANIEL LOPEZ Consulting Unavailable DANIEL LOPEZ Attending Unavailable DANIEL LOPEZ Admitting Unavailable DANIEL LOPEZ Primary Care Unavailable TRICIA OZUNA Consulting Unavailable DANIEL LOPEZ Primary Care Unavailable DANIEL LOPEZ Consulting Unavailable DANIEL LOPEZ Attending Unavailable DANIEL LOPEZ Admitting Unavailable NIKKI WHITE Consulting Unavailable DANIEL LOPEZ Primary Care Unavailable CHACASTILLO, DR BONILLA Attending Unavailable VAUGHN, DR BONILLA Admitting Unavailable DENNIS, DR WESTLEY [place] Consulting Unavailable VAUGHN, DR BONILLA Consulting Unavailable DANIEL LOPEZ Consulting Unavailable DANIEL LOPEZ Attending Unavailable DANIEL LOPEZ Admitting Unavailable DANIEL LOPEZ Primary Care Unavailable DANIEL LOPEZ Primary Care Unavailable CHACASTILLO, DR BONILLA Admitting Unavailable VAUGHN, DR BONILLA Attending Unavailable DANIEL LOPEZ Primary Care Unavailable SHAIKH Henry MORALES Admitting Unavailable INDER ., DR VASILIY Graff Consulting Unavaila SHAIKH Henry Kingsley Attending Unavailable DENNIS, DR WESTLEY [place] Consulting Unavailable MARC ENGLAND Consulting Unavailable SHAIKH Henry MORALES Consulting Unavailable SILVINO ELLIOTT Consulting Unavailable GUSTAVO MORGAN Consulting Unavailable MILDRED ., DR ISABELLA Graff Attending Unavailable FATUMA, DR TRICIA [place] Consulting Unavailable MILDRED ., DR ISABELLA Graff Admitting Unavailable DANIEL LOPEZ Primary Care Unavailable MILDRED ., DR ISABELLA Graff Consulting Unavailable MARCUS ., AYAN Procedure Practitioner Unavailab chu LANCE, DR SILVINO Guajardo Consulting Unavailable DENNIS, DR WESTLEY [place] Consulting Unavailable CIRO, DR TAMY Resendiz Consulting Unavailable MARCUS ., AYAN Consulting Unavailable AGUBOSIM, BRAXTON Consulting Unavailable ROWENA LARIOS Consulting Unavailable GERTRUDIS LAROSE Consulting Unavailable BARBI LAM Consulting Unavailable JULI MASON Consulting Unavailable JUAN MANUEL JERNIGAN Consulting Unavailable DANIEL LOPEZ Attending Unavailable DANIEL LOPEZ Attending Unavailable DANIEL LOPEZ Attending Unavailable Medications Current Medications Medication Drug Class(es) Dates Sig (Normalized) Sig (Original) acetaminophen 300 mg / codeine phosphate 30 mg oral tablet (4 sources) Opioid Agonist take 1 tablet by mouth every six hours Acetaminophen-Code ine 300-30 MG 1 tablet as needed Orally every 6 hrs Active [id number] actuat albuterol 0.09 mg/actuat metered dose inhaler (9 sources) beta2-Adrenergic Agonist Albuterol Sulfate (2.5 MG/3ML) 0.083% 1 unit dose Inhalation four times a day DX J44.9 COPD Active take 1 puff(s) by in halation every four hours as needed Albuterol Sulfate HFA 108 (90 Base) MCG/ACT 1 puff as needed Inhalation every 4 hrs Active take 1 puff(s) by in halation every four hours as needed Albuterol Sulfate HFA 108 (90 Base) MCG/ACT 1 puff as needed Inhalation every 4 hrs Active Albuterol Sulfat e (2.5 MG/ 3 ML) Active clonazePAM 0.5 mg oral tablet (4 sources) Benzodiazepine take 1 tablet by mouth every twenty-four hours clonazePAM 0.5 MG 1 tablet at bedtime Orally Once a day Active escitalopram 20 mg oral tablet (4 sources) Serotonin Reuptake Inhibitor take 1 tablet by mouth every twenty-four hours Escitalopram Oxalate 20 MG 1 tablet Orally Once a day Active 60 actuat fluticasone propionate 0.25 mg/actuat / salmeterol 0.05 mg/actuat dry powder inhaler (4 sources) Corticosteroid, beta2-Adrenergic Agonist take 1 puff(s) by inhalation twice daily Advair Diskus 250-50 MCG/ACT 1 puff Inhalation Twice a day Active levothyroxine sodium 0.088 mg oral tablet (4 sources) l-Thyroxine take 1 tablet by mouth once daily in the morning Levothyroxine Sodium 88 MCG 1 tablet in the morning on an empty stomach Orally Once a day Active 24 hr metoprolol succinate 25 mg extended release oral tablet (3 sources) beta-Adrenergic Gem take 1 tablet by mouth every twenty-four hours Metoprolol Succinate ER 25 MG 1 tablet Orally Once a day Active tiotropium 0.018 mg inhalation powder (4 sources) Anticholinergic take 1 capsule by inhalation once daily Spiriva HandiHaler 18 MCG 1 capsule Inhalation Once a day Active Problems Active Problems Problem Classification Problem Date Documented Date Episodic/Chronic Cardiac dysrhythmias (1 source) Unspecified atrial fibrillation; Translations: [UNSPECIFIED ATRIAL FIBRILLATION] Onset: 04-26-2022 Chronic Chronic obstructive pulmonary disease and bronchiectasis (14 sources) Chronic obstructive lung disease; Translations: [Chronic obstructive pulmonary disease, unspecified] Onset: 01-02-2022 Resolved: 05-10-2022 Chronic Mood disorders (1 source) Major depressive disorder, single episode, unspecified; Translations: [CHETAN DEPRESS D/O SINGLE EPIS UNS] Onset: 04-26-2022 Chronic Nonspecific chest pain (1 source) Chest pain, unspecified; Translations: [CHEST PAIN UNSPECIFIED] Onset: 01-25-2023 Episodic Nutritional deficiencies (1 source) Moderate protein-calorie malnutrition; Translations: [MODERATE PROTEIN-CALORIE MLNUTRIT] Onset: 04-10-2022 Chronic Other endocrine disorders (1 source) Syndrome of inappropriate secretion of antidiuretic hormone; Translations: [SYNDROME INAPPROPRIATE SEC ADH] Onset: 04-26-2022 Chronic Other liver diseases (1 source) Chronic passive congestion of liver; Translations: [CHRONIC PASSIVE CONGESTION OF LIVER] Onset: 04-10-2022 Chronic Other lower respiratory disease (2 sources) Other disorders of lung Onset: 01-02-2022 Resolved: 01-02-2022 Episodic Other lower respiratory disease (4 sources) Shortness of breath; Translations: [SHORTNESS OF BREATH] Onset: 01-22-2023 Episodic Pneumonia (except that caused by tuberculosis or sexually transmitted disease) (2 sources) Pneumonia, unspecified organism; Translations: [PNEUMONIA UNSPECIFIED ORGANISM] Onset: 04-10-2022 Episodic Residual codes; unclassified (1 source) Sleep apnea, unspecified; Translations: [SLEEP APNEA UNSPECIFIED] Onset: 04-26-2022 Chronic Respiratory failure; insufficiency; arrest (adult) (3 sources) Chronic respiratory failure with hypoxia; Translations: [Dependence on supplemental oxygen] Onset: 04-10-2022 Chronic Rheumatoid arthritis and related disease (1 source) Rheumatoid arthritis, unspecified; Translations: [RHEUMATOID ARTHRITIS UNSPECIFIED] Onset: 04-26-2022 Chronic Substance-related disorders (1 source) Nicotine dependence, cigarettes, uncomplicated; Translations: [NICOTINE DEPEND CIGARETTES UNCOMP] Onset: 04-10-2022 Chronic Thyroid disorders (1 source) Hypothyroidism, unspecified; Translations: [HYPOTHYROIDISM UNSPECIFIED] Onset: 04-26-2022 Chronic Unclassified (1 source) COUGH, UNSPECIFIED; Translations: [COUGH, UNSPECIFIED] Onset: 01-25-2023 Unclassified (1 source) CONTACT W/AND (SUSP) EXPOS COVID-19; Translations: [CONTACT W/AND (SUSP) EXPOS COVID-19] Onset: 04-26-2022 Past or Other Problems Problem Classification Problem Date Documented Da te Episodic/Chronic Abdominal pain (1 source) Lower abdominal pain, unspecified; Translations: [LOWER ABDOMINAL PAIN UNSPECIFIED] Onset: 04-26-2022 Episodic Fluid and electrolyte disorders (4 sources) Hypo-osmolality and hyponatremia; Translations: [Hypokalemia] Onset: 04-10-2022 Episodic Noninfectious gastroenteritis (1 source) Noninfective gastroenteritis and colitis, unspecified; Translations: [NONINFECTIVE GE AND COLITIS UNS] Onset: 04-26-2022 Episodic Other aftercare (1 source) Other correction (current) drug therapy; Translations: [OTH CORRECTION CURRENT DRUG THERAPY] Onset: 04-26-2022 Episodic Other aftercare (1 source) 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; Translations: [CORRECTION CURRNT USE ANTICOAGULANTS] Onset: 04-26-2022 Episodic Other connective tissue disease (1 source) Muscle weakness (generalized); Translations: [MUSCLE WEAKNESS GENERALIZED] Onset: 04-10-2022 Episodic Other gastrointestinal disorders (1 source) Constipation, unspecified; Translations: [CONSTIPATION UNSPECIFIED] Onset: 04-26-2022 Episodic Other gastrointestinal disorders (1 source) Disease of intestine, unspecified; Translations: [DISEASE OF INTESTINE UNSPECIFIED] Onset: 04-26-2022 Episodic Other lower respiratory disease (7 sources) Other nonspecific abnormal finding of lung field; Translations: [OTH NONSPECIFIC ABN FIND LNG FIELD] Onset: 01-02-2022 Resolved: 05-10-2022 Episodic Other lower respiratory disease (3 sources) Personal history of pneumonia (recurrent); Translations: [PERSONAL HX OF PNEUMONIA RECURRENT] Onset: 04-26-2022 Resolved: 05-10-2022 Episodic Other lower respiratory disease (1 source) Hemoptysis; Translations: [HEMOPTYSIS] Onset: 04-10-2022 Episodic Other screening for suspected conditions (not mental disorders or infectious disease) (2 sources) Abnormal findings on diagnostic imaging of other abdominal regions, including retroperitoneum; Translations: [Other specified abnormal findings of blood chemistry] Onset: 04-10-2022 Episodic Residual codes; unclassified (1 source) Tobacco use Onset: 01-02-2022 Resolved: 01-02-2022 Episodic Residual codes; unclassified (1 source) Acquired absence of both cervix and uterus; Translations: [ACQUIRED ABSENCE BOTH CERVIX AND UTERUS] Onset: 04-26-2022 Episodic Residual codes; unclassified (1 source) Body mass index (BMI) 20.0-20.9, adult; Translations: [BODY MASS INDEX BMI 20.0-20.9 ADULT] Onset: 04-10-2022 Episodic Screening and history of mental health and substance abuse codes (1 source) Personal history of nicotine dependence; Translations: [PERSONAL HISTORY OF NICOTINE DEPEND] Onset: 04-26-2022 Episodic Septicemia (except in labor) (4 sources) Sepsis, unspecified organism; Translations: [Severe sepsis without septic shock] Onset: 03-19-2022 Episodic Superficial injury; contusion (1 source) Contusion of abdominal wall, initial encounter; Translations: [CONTUSION ABDOMINAL WALL INITIAL] Onset: 04-26-2022 Episodic Results Test Name Value Interpretation Reference Range Facility CT CHEST WO CONon 02-07-2023 CT CHEST WO CON Normal [facility] [place] XR CHEST 2 Von 01-22-2023 XR CHEST [address] [facility] XR CHEST 2 Von 12-28-2022 XR CHEST [address] [facility] CT CHEST WO CONon 08-15-2022 CT CHEST WO CON Normal [facility] ACID FAST SMEAR AND CXon Acid Fast Culture Negative Normal [facility] Comment on above: Result Comment: No a kemi fast bacilli isolated after 6 weeks. Performed By: #### A FB ####[facility] [address] [place] [address]Dr. Charlee Pearson Acid Fast Smear Negative Normal [facility] Comment on above: Performed By: #### A FB ####[facility] [address] [place] [address]Dr. Charlee Pearson [employer] Specimen Processing Concentration Normal [facility] Comment on above: Performed By: #### A FB ####[facility] [address] [place] [id number]. Charlee Pearson STOOL CULTUREon 04-24-2022 Campylobacter Culture Final report Normal [facility] Comment on above: Performed By: #### C XSTOOL ####[facility] [address] [place] [address]Dr. Charlee Pearson E coli Shiga Toxin EIA Negative Normal Negative [facility] Comment on above: Performed By: #### C XSTOOL ####[facility] [address] [place], [place] [address]Dr. Charlee Pearson Result 1 Comment Normal [facility] Comment on above: Result Comment: No S almonella or Shigella recovered. Performed By: #### C XSTOOL ####[facility] [address] [place], [place] [address]Dr. Charlee Pearson Result Comment: No C ampylobacter species isolated. Salmonella/Shigella Screen Final report Normal [facility] Comment on above: Performed By: #### C XSTOOL ####[facility] [address]xw[address] [place], [place] [address]Dr. Charlee Pearson FUNGAL CULTUREon 04-20-2022 Fungus (Mycology) Culture Final report Abnormal [facility] Comment on above: Performed By: #### C XFUN ####[facility] O[address]bes[address] [place], [place] [address]Dr. Charlee Pearson Fungus Stain Final report Normal [facility] Comment on above: Performed By: #### C XFUN ####[facility] Kpihzngxb[address] [place], [place] [address]Dr. Charlee Pearson Result 1 Comment Normal [facility] Comment on above: Result Comment: ZULAY/ Calcofluor preparation: no fungus observed. Performed By: #### C XFUN ####[facility] [address] [place] [address]Dr. Charlee Pearson Result 1 Esperanza albicans Abnormal [facility] Comment on above: Performed By: #### C XFUN ####[facility] Jkwvqpzvef[address] [place], [place] [address]Dr. Charlee Pearson CLOSTRIDIUM DIFFICILE PCRon 04-19-2022 C difficile Toxin Gene LORENZO Negative Normal Negative [facility] Comment on above: Performed By: #### C DIFNAA ####[facility] Qusfcbsdri[address] [place], [place] [address]Dr. Charlee Michel CBC AUTO DIFFon 04-18-2022 BASO # 0.1 103/ul Normal 0.0-0.[address] [facility] Comment on above: Performed By: #### C BC ####[facility] [address] [place] [address]Dr. Charlee Pearson Basophils/100 WBC (Bld) 0.5 % Normal 0.2-2.0 [facility] Comment on above: Performed By: #### C BC ####[facility] Hgbem[address]vs[address] [place], [place] [address]Dr. Claudetteclaudette Pearson EO # 0.0 103/ul Normal 0.0-0.[address] [facility] Comment on above: Performed By: #### C BC ####[facility] Ocygs[address]cjm[address] [place], [place] [address]Dr. Claudetteclaudette Pearson Eosinophils/100 WBC (Bld) 0.1 % Critically low 0.9-7.[address] [facility] Comment on above: Performed By: #### C BC ####[facility] [address]xanlynfeu[address] [place], [place] [address]Dr. Charlee Pearson Erythrocyte distribution width (RBC) [Ratio] 13.2 % Normal 11.0-15.[address] [facility] Comment on above: Performed By: #### C BC ####[facility] Hlodh[address] [place], [place] [address]Dr. Charlee Pearson Hematocrit (Bld) [Volume fraction] 32.2 % Critically low 36.0-48.[address] [facility] Comment on above: Performed By: #### C BC ####[facility] [address] [place] [id number]. Charlee Pearson Hemoglobin (Bld) [Mass/Vol] 10.7 g/dL Critically low 12.0-16.[address] [facility] Comment on above: Performed By: #### C BC ####[facility] [address]rbwss[address] [place] [id number]. Charlee Pearson IG # 0.13 10e3/ul Critically high 0.00-0.03 [facility] Comment on above: Performed By: #### C BC ####[facility] [address]cfaescv[address] [place] [address]Dr. Charlee Pearson IG % 1.4 % Critically high 0.0-0.5 [facility] Comment on above: Performed By: #### C BC ####[facility] [address] [place], [place] [address]Dr. Charlee Pearson LYMPH # 1.4 103/ul Normal 1.2-3.[address] [facility] Comment on above: Performed By: #### C BC ####[facility] Ebcmwwbucc[address] [place], [place] [address]Dr. Charlee Pearson Lymphocytes/100 WBC (Bld) 14.2 % Critically low 20.5-60.[address] [facility] Comment on above: Performed By: #### C BC ####[facility] [address]ty[address] [place] [address]Dr. Charlee Pearson MANUAL DIFF REQ NO Normal [facility] Comment on above: Performed By: #### C BC ####[facility] Gr[address]isfmty[address] [place], [place] [address]Dr. Charlee Pearson MCH (RBC) [Entitic mass] 30.4 pg Normal 26.7-34.[address] [facility] Comment on above: Performed By: #### C BC ####[facility] Ezafriabux[address] [place], [place] [address]Dr. Charlee Pearson MCHC (RBC) [Mass/Vol] 33.2 g/dL Normal 29.9-35.[address] [facility] Comment on above: Performed By: #### C BC ####[facility] [address] [place] [id number]. Charlee Pearson MCV (RBC) [Entitic vol] 91.5 fL Normal 81.0-99.0 [facility] Comment on above: Performed By: #### C BC ####[facility] [address]vbrec[address] [place] [id number]. Charlee Pearson MONO # 1.2 103/ul Critically high 0.3-0.8 [facility] Comment on above: Performed By: #### C BC ####[facility] [address]rahpfvtni[address] [place] [id number]. Charlee Pearson Monocytes/100 WBC (Bld) 12.9 % Critically high 1.7-12. 0 [facility] Comment on above: Performed By: #### C BC ####[facility] [address] [place], [place] [id number]. Charlee Pearson NEUT # 6.7 103/ul Critically high 1.4-6.5 [facility] Comment on above: Performed By: #### C BC ####[facility] [address]oz[address] [place] [id number]. Charlee Pearson Neutrophils/100 WBC (Bld) 70.9 % Normal 43.0-75.0 [facility] Comment on above: Performed By: #### C BC ####[facility] [address] [place] [id number]. Charlee Pearson Platelet mean volume (Bld) [Entitic vol] 8.2 fL Critically low 9.5-13.5 [facility] Comment on above: Performed By: #### C BC ####[facility] Hos[address]xowh[address] [place] [id number]. Charlee Pearson PLT 580 103/ul Critically high 150-450 [facility] Comment on above: Performed By: #### C BC ####[facility] [address]ry[address]wf[address] [place], [place] [address]Dr. Charlee Pearson RBC 3.52 106/ul Critically low 4.20-5.40 [facility] Comment on above: Performed By: #### C BC ####[facility] [address]ck[address] [place] [address]Dr. Charlee Pearson WBC 9.5 103/ul Normal 4.0-11.0 [facility] Comment on above: Performed By: #### C BC ####[facility] [address]ons[address]xug[address] [place] [id number]. Charlee Pearson OSMOLALITY URINEon 2 Osmolality, Urine 270 mOsmol/kg Normal [facility] Comment on above: Result Comment: 24 h r : 300 - 900 Random: 50 - 1400 After 12hr fluid restriction: >850 Performed By: #### O SMOU ####[facility] [address]so[address] [place] [address]Dr. Charlee Pearson PROF 14(COMP METB)on 022 Albumin [Mass/Vol] 3.0 g/dL Critically low 3.4-5.0 [facility] Comment on above: Performed By: #### C MP ####[facility] Fmloxygqtv[address] [place], [place] [address]Dr. Charlee Pearson Albumin/Globulin [Mass ratio] 0.8 {ratio} Normal [facility] Comment on above: Performed By: #### C MP ####[facility] [address]ekhoruqgw[address] [place], [place] [address]Dr. Charlee Pearson ALP [Catalytic activity/Vol] 122 U/L Critically high 46-116 [facility] Comment on above: Performed By: #### C MP ####[facility] [address]ump[address] [place] [address]Dr. Charlee Pearson ALT [Catalytic activity/Vol] 15 U/L Normal 14-59 [facility] Comment on above: Performed By: #### C MP ####[facility] [address]wvc[address] [place] [address]Dr. Charlee Pearson Anion gap [Moles/Vol] 11.3 mmol/L Normal [facility] Comment on above: Performed By: #### C MP ####[facility] Fettfcyllx[address] [place] [address]Dr. Charlee Pearson AST [Catalytic activity/Vol] 16 U/L Normal 15-37 [facility] Comment on above: Performed By: #### C MP ####[facility] [address]iasbobr[address] [place] [address]Dr. Charlee Pearson Bilirubin [Mass/Vol] 0.4 mg/dL Normal 0.2-1.0 [facility] Comment on above: Performed By: #### C MP ####[facility] [address]zoa[address] [place] [address]Dr. Charlee Pearson Calcium [Mass/Vol] 9.0 mg/dL Normal 8.5-10.1 [facility] Comment on above: Performed By: #### C MP ####[facility] K[address] [place], [place] [address]Dr. Charlee Pearson Chloride [Moles/Vol] 96 mmol/L Critically low 98-107 [facility] Comment on above: Performed By: #### C MP ####[facility] Awyprsntks[address] [place], [place] [address]Dr. Charlee Pearson CO2 [Moles/Vol] 26.9 mmol/L Normal 21.0-32.0 [facility] Comment on above: Performed By: #### C MP ####[facility] [address]ixvs[address] [place], [place] [address]Dr. Charlee Pearson Creatinine [Mass/Vol] 0.60 mg/dL Normal 0.55-1.02 [facility] Comment on above: Performed By: #### C MP ####[facility] [address]nc[address] [place], [place] [address]Dr. Charlee Michel EGFR-AF MICRONESIAN >60 Normal >=60 [facility] Comment on above: Performed By: #### C MP ####[facility] Gxogexgwho[address] [place], [place] [address]Dr. Claudetteclaudette Michel EGFR-NON AF MICRONESIAN >60 Normal >=60 [facility] Comment on above: Performed By: #### C MP ####[facility] [address] [place], [place] [address]Dr. Charlee Pearson Globulin (S) [Mass/Vol] 3.9 g/dL Normal [facility] Comment on above: Performed By: #### C MP ####[facility] [address]vozgxdn[address] [place] [id number]. Charlee Pearson Glucose [Mass/Vol] 94 mg/dL Normal 74-106 [facility] Comment on above: Performed By: #### C MP ####[facility] [address]pmkr[address] [place] [id number]. Charlee Pearson Potassium [Moles/Vol] 4.2 mmol/L Normal 3.5-5.1 [facility] Comment on above: Performed By: #### C MP ####[facility] [address] [place] [address]Dr. Charlee Pearson Protein [Mass/Vol] 6.9 g/dL Normal 6.4-8.2 [facility] Comment on above: Performed By: #### C MP ####[facility] [address]qf[address]znkr[address] [place], [place] [address]Dr. Charlee Pearson Sodium [Moles/Vol] 130 mmol/L Critically low 136-145 [facility] Comment on above: Performed By: #### C MP ####[facility] [address]ixuzt[address] [place] [address]Dr. Charlee Pearson Urea nitrogen [Mass/Vol] 3.0 mg/dL Critically low 7.0-18.0 [facility] Comment on above: Performed By: #### C MP ####[facility] [address] [place], [place] [address]Dr. Charlee Pearson Urea nitrogen/Creatinine [Mass ratio] 5.0 mg/mg Normal [facility] Comment on above: Performed By: #### C MP ####[facility] [address]was[address]vo[address] [place] [address]Dr. Charlee Pearson PROF CHEM 8 (BAS METB)on Anion gap [Moles/Vol] 12.4 mmol/L Normal [facility] Comment on above: Performed By: #### B MP ####[facility] [address]igtosmqv[address] [place] [id number]. Charlee Pearson Calcium [Mass/Vol] 8.9 mg/dL Normal 8.5-10.1 [facility] Comment on above: Performed By: #### B MP ####[facility] [address]cf[address] [place] [address]Dr. Charlee Pearson Chloride [Moles/Vol] 98 mmol/L Normal 98-107 [facility] Comment on above: Performed By: #### B MP ####[facility] [address]libist[address] [place] [address]Dr. Charlee Pearson CO2 [Moles/Vol] 23.5 mmol/L Normal 21.0-32.0 [facility] Comment on above: Performed By: #### B MP ####[facility] [address]chxu[address]yi[address] [place] [address]Dr. Charlee Pearson Creatinine [Mass/Vol] 0.46 mg/dL Critically low 0.55-1.02 [facility] Comment on above: Performed By: #### B MP ####[facility] [address] [place], [place] [address]Dr. Charlee Pearson EGFR-AF MICRONESIAN >60 Normal >=60 [facility] Comment on above: Performed By: #### B MP ####[facility] [address] [place], [place] [address]Dr. Charlee Pearson EGFR-NON AF MICRONESIAN >60 Normal >=60 [facility] Comment on above: Performed By: #### B MP ####[facility] [address]unkz[address] [place], [place] [address]Dr. Charlee Pearson Glucose [Mass/Vol] 88 mg/dL Normal 74-106 [facility] Comment on above: Performed By: #### B MP ####[facility] [address]cor[address] [place] [address]Dr. Charlee Pearson Potassium [Moles/Vol] 3.9 mmol/L Normal 3.5-5.[address] [facility] Comment on above: Performed By: #### B MP ####[facility] [address] [place] [address]Dr. Claudetteclaudette Pearson Sodium [Moles/Vol] 130 mmol/L Critically low 136-145 Th [facility] Comment on above: Performed By: #### B MP ####[facility] Wqprofmcxv7[address] [place] [address]Dr. Claudetteclaudette Michel Urea nitrogen [Mass/Vol] 2.0 mg/dL Critically low 7.0-18.0 [facility] Comment on above: Performed By: #### B MP ####[facility] Lmjuysxbfz[address] [place] [address]Dr. Charlee Pearson Urea nitrogen/Creatinine [Mass ratio] 4.3 mg/mg Normal [facility] Comment on above: Performed By: #### B MP ####[facility] Wpqmcmczrq[address] [place], [place] [address]Dr. Charlee Pearson Anion gap [Moles/Vol] 10.1 mmol/L Normal [facility] Comment on above: Performed By: #### B MP ####[facility] Pjffqiusmy299[address] [place], [place] [address]Dr. Charlee Pearson Calcium [Mass/Vol] 8.6 mg/dL Normal 8.5-10.1 [facility] Comment on above: Performed By: #### B MP ####[facility] Wajgilktlr[address] [place], [place] [address]Dr. Charlee Pearson Chloride [Moles/Vol] 95 mmol/L Critically low 98-107 [facility] Comment on above: Performed By: #### B MP ####[facility] Bfbfpyytpz8[address] [place], [place] [address]Dr. Charlee Pearson CO2 [Moles/Vol] 28.3 mmol/L Normal 21.0-32.0 [facility] Comment on above: Performed By: #### B MP ####[facility] Dqjbbwdqwl286[address] [place], [place] [address]Dr. Charlee Pearson Creatinine [Mass/Vol] 0.45 mg/dL Critically low 0.55-1.02 [facility] Comment on above: Performed By: #### B MP ####[facility] Xsimqmgmfv[address] [place], [place] [address]Dr. Charlee Pearson EGFR-AF MICRONESIAN >60 Normal >=60 [facility] Comment on above: Performed By: #### B MP ####[facility] [address]jevrikvzj[address] [place] [id number]. Charlee Pearson EGFR-NON AF MICRONESIAN >60 Normal >=60 [facility] Comment on above: Performed By: #### B MP ####[facility] Aireamoctq65[address] [place] [id number]. Charlee Pearson Glucose [Mass/Vol] 91 mg/dL Normal 74-106 [facility] Comment on above: Performed By: #### B MP ####[facility] Uzzxqlqaur[address] [place] [address]Dr. Charlee Pearson Potassium [Moles/Vol] 3.4 mmol/L Critically low 3.5-5.1 [facility] Comment on above: Performed By: #### B MP ####[facility] Alobrvloam[address] [place], [place] [address]Dr. Charlee Pearson Sodium [Moles/Vol] 130 mmol/L Critically low 136-145 Th [facility] Comment on above: Performed By: #### B MP ####[facility] Czmkdmxvwm396[address] [place], [place] [address]Dr. Claudetteclaudette Pearson Urea nitrogen [Mass/Vol] 3.0 mg/dL Critically low 7.0-18.0 [facility] Comment on above: Performed By: #### B MP ####[facility] Eqcmsenfyj006[address] [place], [place] [address]Dr. Charlee Pearson Urea nitrogen/Creatinine [Mass ratio] 6.7 mg/mg Normal [facility] Comment on above: Performed By: #### B MP ####[facility] Piqaddgtwr83[address] [place] [address]Dr. Claudetteclaudette Pearson XR COLONon 04-18-2022 XR COLON Normal [facility] CBC AUTO DIFFon 04-17-2022 BASO # 0.0 103/ul Normal 0.0-0.1 [facility] Comment on above: Performed By: #### C BC ####[facility] Oljoxkwhzy67[address] [place], [place] [address]Dr. Charlee Pearson Basophils/100 WBC (Bld) 0.2 % Normal 0.2-2.0 [facility] Comment on above: Performed By: #### C BC ####[facility] Dkidhhgaep23[address] [place] [address]Dr. Claudetteclaudette Pearson EO # 0.0 103/ul Normal 0.0-0.7 [facility] Comment on above: Performed By: #### C BC ####[facility] Iessqqkujv9536 [place] [address]DrOttoniel Pearson Eosinophils/100 WBC (Bld) 0.1 % Critically low 0.9-7.0 [facility] Comment on above: Performed By: #### C BC ####[facility] Ouwzdcvzbl95[address] [place], [place] [address]Dr. Charlee Pearson Erythrocyte distribution width (RBC) [Ratio] 12.9 % Normal 11.0-15.0 [facility] Comment on above: Performed By: #### C BC ####[facility] Rcsjsbozgx585[address] [place], [place] [address]DrOttoniel Pearson Hematocrit (Bld) [Volume fraction] 28.7 % Critically low 36.0-48.0 [facility] Comment on above: Performed By: #### C BC ####[facility] Ucxkcihemm686[address] [place], [place] [address]DrOttoniel Claudetteclaudette Pearson Hemoglobin (Bld) [Mass/Vol] 10.0 g/dL Critically low 12.0-16.0 [facility] Comment on above: Performed By: #### C BC ####[facility] Lrrgbjgaiq12[address] [place], [place] [address]DrOttoniel Pearson IG # 0.04 10e3/ul Critically high 0.00-0.03 [facility] Comment on above: Performed By: #### C BC ####[facility] Coyheujvre7[address] [place], [place] [address]DrOttoniel Pearson IG % 0.5 % Normal 0.0-0.5 [facility] Comment on above: Performed By: #### C BC ####[facility] Zlarghrlfk146[address] [place], [place] [address]DrOttoniel Pearson LYMPH # 1.5 103/ul Normal 1.2-3.8 [facility] Comment on above: Performed By: #### C BC ####[facility] Qogduprmha8535 [place] [address]Dr. Charlee Pearson Lymphocytes/100 WBC (Bld) 17.2 % Critically low 20.5-60.0 [facility] Comment on above: Performed By: #### C BC ####[facility] Tukdjnkxnk16[address] [place] [address]Dr. Charlee Pearson MANUAL DIFF REQ NO Normal [facility] Comment on above: Performed By: #### C BC ####[facility] Qayftsdebb4870 [place] [address]Dr. Charlee Pearson MCH (RBC) [Entitic mass] 31.3 pg Normal 26.7-34.0 [facility] Comment on above: Performed By: #### C BC ####[facility] Qrpkckmgsn508[address] [place], [place] [address]Dr. Charlee Pearson MCHC (RBC) [Mass/Vol] 34.8 g/dL Normal 29.9-35.2 [facility] Comment on above: Performed By: #### C BC ####[facility] Qnkcnmicsa885[address] [place], [place] [address]Dr. Charlee Pearson MCV (RBC) [Entitic vol] 89.7 fL Normal 81.0-99.0 [facility] Comment on above: Performed By: #### C BC ####[facility] Fqxitcsyiu0[address] [place] [address]Dr. Charlee Pearson MONO # 1.3 103/ul Critically high 0.3-0.8 [facility] Comment on above: Performed By: #### C BC ####[facility] Ogavoryrub[address] [place], [place] [address]Dr. Charlee Pearson Monocytes/100 WBC (Bld) 15.1 % Critically high 1.7-12. 0 [facility] Comment on above: Performed By: #### C BC ####[facility] Pbqixldpvt337[address] [place], [place] [address]Dr. Charlee Pearson NEUT # 5.7 103/ul Normal 1.4-6.5 [facility] Comment on above: Performed By: #### C BC ####[facility] Habxnwjegh6[address] [place] [address]Dr. Charlee Pearson Neutrophils/100 WBC (Bld) 66.9 % Normal 43.0-75.0 [facility] Comment on above: Performed By: #### C BC ####[facility] Vvhjnxfogn53[address] [place] [address]Dr. Charlee Pearson Platelet mean volume (Bld) [Entitic vol] 8.4 fL Critically low 9.5-13.5 [facility] Comment on above: Performed By: #### C BC ####[facility] Xpcjyzypxr18[address] [place] [address]Dr. Charlee Pearson PLT 421 103/ul Normal 150-450 [facility] Comment on above: Performed By: #### C BC ####[facility] Uikadxtymy10[address] [place] [address]Dr. Charlee Pearson RBC 3.20 106/ul Critically low 4.20-5.40 [facility] Comment on above: Performed By: #### C BC ####[facility] Ejznjxhzxg[address] [place], [place] [address]Dr. Charlee Pearson WBC 8.5 103/ul Normal 4.0-11.0 [facility] Comment on above: Performed By: #### C BC ####[facility] Wtoengzizd6[address] [place] [address]DrOttoniel Pearson PROF 14(COMP METB)on 022 Albumin [Mass/Vol] 2.4 g/dL Critically low 3.4-5.0 [facility] Comment on above: Performed By: #### C MP ####[facility] Fjapawosqm415[address] [place], [place] [address]DrOttoniel Pearson Albumin/Globulin [Mass ratio] 0.7 {ratio} Normal [facility] Comment on above: Performed By: #### C MP ####[facility] Vdskgmmvwv7744 [place] [address]DrOttoniel Pearson ALP [Catalytic activity/Vol] 82 U/L Normal 46-116 [facility] Comment on above: Performed By: #### C MP ####[facility] Gbxlvlicwk2863 [place] [address]Dr. Charlee Pearson ALT [Catalytic activity/Vol] 13 U/L Critically low 14-59 [facility] Comment on above: Performed By: #### C MP ####[facility] Gttzbobdvy0072 [place] [address]Dr. Charlee Pearson Anion gap [Moles/Vol] 8.4 mmol/L Normal [facility] Comment on above: Performed By: #### C MP ####[facility] Lvshuthand[address] [place], [place] [address]Dr. Charlee Pearson AST [Catalytic activity/Vol] 11 U/L Critically low 15-37 [facility] Comment on above: Performed By: #### C MP ####[facility] Ooyufoeout7[address] [place], [place] [address]Dr. Charlee Pearson Bilirubin [Mass/Vol] 0.4 mg/dL Normal 0.2-1.0 [facility] Comment on above: Performed By: #### C MP ####[facility] Bsujzsbnzz156[address] [place], [place] [address]Dr. Charlee Pearson Calcium [Mass/Vol] 8.5 mg/dL Normal 8.5-10.1 [facility] Comment on above: Performed By: #### C MP ####[facility] Genuoeicbx349[address] [place], [place] [address]Dr. Charlee Pearson Chloride [Moles/Vol] 92 mmol/L Critically low 98-[address] [facility] Comment on above: Performed By: #### C MP ####[facility] Urerhpnorg[address] [place], [place] [address]Dr. Charlee Pearson CO2 [Moles/Vol] 31.4 mmol/L Normal 21.0-32.0 [facility] Comment on above: Performed By: #### C MP ####[facility] Zmvcvqgrjd811[address] [place], [place] [address]Dr. Charlee Pearson Creatinine [Mass/Vol] 0.53 mg/dL Critically low 0.55-1.02 [facility] Comment on above: Performed By: #### C MP ####[facility] Bfzpnbbnti8184 [place] [id number]. Charlee Michel EGFR-AF MICRONESIAN >60 Normal >=60 [facility] Comment on above: Performed By: #### C MP ####[facility] Irfkcbufjj3308 [place] [id number]. Charlee Michel EGFR-NON AF MICRONESIAN >60 Normal >=60 [facility] Comment on above: Performed By: #### C MP ####[facility] Xznmqrahck89[address] [place] [id number]. Charlee Michel Globulin (S) [Mass/Vol] 3.5 g/dL Normal [facility] Comment on above: Performed By: #### C MP ####[facility] Potzkswwce9132 [place] [address]Dr. Charlee Pearson Glucose [Mass/Vol] 100 mg/dL Normal 74-106 [facility] Comment on above: Performed By: #### C MP ####[facility] Gatmwjzfiq8647 [place] [id number]. Charlee Michel Potassium [Moles/Vol] 3.8 mmol/L Normal 3.5-5.1 [facility] Comment on above: Performed By: #### C MP ####[facility] Xkjnlbttgz2799 [place] [id number]. Charlee Pearson Protein [Mass/Vol] 5.9 g/dL Critically low 6.4-8.2 [facility] Comment on above: Performed By: #### C MP ####[facility] Tilbjvodvm0838 [place] [address]Dr. Charlee Pearson Sodium [Moles/Vol] 128 mmol/L Critically low 136-145 Th [facility] Comment on above: Performed By: #### C MP ####[facility] Pzdgjqvtnz4680 [place] [id number]. Charlee Pearson Urea nitrogen [Mass/Vol] 3.0 mg/dL Critically low 7.0-18.0 [facility] Comment on above: Performed By: #### C MP ####[facility] Iqnlzgixvr2107 [place] [address]Dr. Charlee Pearson Urea nitrogen/Creatinine [Mass ratio] 5.7 mg/mg Normal [facility] Comment on above: Performed By: #### C MP ####[facility] Ekemenayny7[address] [place] [address]Dr. Charlee Pearson PROF CHEM 8 (BAS METB)on Anion gap [Moles/Vol] 8.5 mmol/L Normal [facility] Comment on above: Performed By: #### B MP ####[facility] Gbzgswhast4801 [place] [address]Dr. Charlee Pearson Calcium [Mass/Vol] 8.5 mg/dL Normal 8.5-10.1 [facility] Comment on above: Performed By: #### B MP ####[facility] Oxwnylhdxb035[address] [place], [place] [address]Dr. Charlee Pearson Chloride [Moles/Vol] 95 mmol/L Critically low 98-107 [facility] Comment on above: Performed By: #### B MP ####[facility] Ufocueuceb33[address] [place], [place] [address]Dr. Charlee Pearson CO2 [Moles/Vol] 30.5 mmol/L Normal 21.0-32.0 [facility] Comment on above: Performed By: #### B MP ####[facility] Qdbrvcfgzq534[address] [place], [place] [address]Dr. Charlee Pearson Creatinine [Mass/Vol] 0.43 mg/dL Critically low 0.55-1.02 [facility] Comment on above: Performed By: #### B MP ####[facility] Ndxwwmkifd489[address] [place], [place] [address]Dr. Charlee Pearson EGFR-AF MICRONESIAN >60 Normal >=60 [facility] Comment on above: Performed By: #### B MP ####[facility] Jpsbginhzr113[address] [place], [place] [address]Dr. Charlee Pearson EGFR-NON AF MICRONESIAN >60 Normal >=60 [facility] Comment on above: Performed By: #### B MP ####[facility] Yhepepmgjj0542 [place] [address]Dr. Charlee Pearson Glucose [Mass/Vol] 86 mg/dL Normal 74-106 [facility] Comment on above: Performed By: #### B MP ####[facility] Euqfgvtktm9561 [place] [address]Dr. Charlee Pearson Potassium [Moles/Vol] 3.0 mmol/L Critically low 3.5-5.1 [facility] Comment on above: Performed By: #### B MP ####[facility] Hgdiumknqh1209 [place] [address]Dr. Charlee Pearson Sodium [Moles/Vol] 130 mmol/L Critically low 136-145 Th [facility] Comment on above: Performed By: #### B MP ####[facility] Zqakmktvfc9876 [place] [address]Dr. Charlee Pearson Urea nitrogen [Mass/Vol] 2.0 mg/dL Critically low 7.0-18.0 [facility] Comment on above: Performed By: #### B MP ####[facility] Weonxrzxyf75[address] [place], [place] [address]Dr. Charlee Pearson Urea nitrogen/Creatinine [Mass ratio] 4.7 mg/mg Normal [facility] Comment on above: Performed By: #### B MP ####[facility] Rpysigbiyy[address] [place], [place] [address]Dr. Charlee Pearson Anion gap [Moles/Vol] 7.2 mmol/L Normal [facility] Comment on above: Performed By: #### B MP ####[facility] Bjqbqmbjki0006 [place] [address]Dr. Charlee Pearson Calcium [Mass/Vol] 9.1 mg/dL Normal 8.5-10.1 [facility] Comment on above: Performed By: #### B MP ####[facility] Ossliwbjee88[address] [place], [place] [address]Dr. Charlee Pearson Chloride [Moles/Vol] 92 mmol/L Critically low 98-107 [facility] Comment on above: Performed By: #### B MP ####[facility] Ygbzorpqqz4679 [place] [address]Dr. Charlee Pearson CO2 [Moles/Vol] 32.3 mmol/L Critically high 21.0-32.0 [facility] Comment on above: Performed By: #### B MP ####[facility] Xahudhtvdz9693 [place] [address]Dr. Charlee Pearson Creatinine [Mass/Vol] 0.60 mg/dL Normal 0.55-1.02 [facility] Comment on above: Performed By: #### B MP ####[facility] Loydqnymbd079[address] [place], [place] [address]Dr. Charlee Pearson EGFR-AF MICRONESIAN >60 Normal >=60 [facility] Comment on above: Performed By: #### B MP ####[facility] Raeguahzln58[address] [place], [place] [address]Dr. Claudetteclaudette Michel EGFR-NON AF MICRONESIAN >60 Normal >=60 [facility] Comment on above: Performed By: #### B MP ####[facility] Vszzbqojdp800[address] [place], [place] [address]Dr. Charlee Pearson Glucose [Mass/Vol] 104 mg/dL Normal 74-106 [facility] Comment on above: Performed By: #### B MP ####[facility] Jpplknpfos[address] [place], [place] [address]Dr. Charlee Pearson Potassium [Moles/Vol] 3.5 mmol/L Normal 3.5-5.1 [facility] Comment on above: Performed By: #### B MP ####[facility] Wgmvzlqtrj364[address] [place], [place] [address]Dr. Charlee Pearson Sodium [Moles/Vol] 128 mmol/L Critically low 136-145 Th [facility] Comment on above: Performed By: #### B MP ####[facility] Ujjrjfafmo207[address] [place], [place] [address]Dr. Claudetteclaudette Pearson Urea nitrogen [Mass/Vol] 2.0 mg/dL Critically low 7.0-18.0 [facility] Comment on above: Performed By: #### B MP ####[facility] Ntbrpmpvtq6820 [place] [id number]. Charlee Pearson Urea nitrogen/Creatinine [Mass ratio] 3.3 mg/mg Normal [facility] Comment on above: Performed By: #### B MP ####[facility] Taoqygyocn4376 [place] [id number]. Charlee Pearson Anion gap [Moles/Vol] 7.8 mmol/L Normal [facility] Comment on above: Performed By: #### B MP ####[facility] Fdrqrleduc1163 [place] [id number]. Charlee Pearson Calcium [Mass/Vol] 8.2 mg/dL Critically low 8.5-10.1 [facility] Comment on above: Performed By: #### B MP ####[facility] Mbdfljctkk8[address] [place], [place] [address]Dr. Charlee Pearson Chloride [Moles/Vol] 91 mmol/L Critically low 98-[address] [facility] Comment on above: Performed By: #### B MP ####[facility] Aryzoztxnr9[address] [place], [place] [address]Dr. Charlee Michel CO2 [Moles/Vol] 31.2 mmol/L Normal 21.0-32.0 [facility] Comment on above: Performed By: #### B MP ####[facility] Qxtrwepkrd6[address] [place], [place] [address]Dr. Claudetteclaudette Michel Creatinine [Mass/Vol] 0.54 mg/dL Critically low 0.55-1.02 [facility] Comment on above: Performed By: #### B MP ####[facility] Nidiulunei9898 [place] [id number]. Claudetteclaudette Michel EGFR-AF MICRONESIAN >60 Normal >=60 [facility] Comment on above: Performed By: #### B MP ####[facility] Ayurmwzbma9597 [place] [id number]. Charlee Pearson EGFR-NON AF MICRONESIAN >60 Normal >=[address] [facility] Comment on above: Performed By: #### B MP ####[facility] Bdflzbepoz4[address] [place], [place] [address]Dr. Charlee Pearson Glucose [Mass/Vol] 101 mg/dL Normal 74-106 [facility] Comment on above: Performed By: #### B MP ####[facility] Wnzhxdtbub534[address] [place], [place] [address]Dr. Charlee Pearson Potassium [Moles/Vol] 4.0 mmol/L Normal 3.5-5.1 [facility] Comment on above: Performed By: #### B MP ####[facility] Zftmsysrmw878[address] [place], [place] [address]Dr. Charlee Michel Sodium [Moles/Vol] 126 mmol/L Critically low 136-145 [facility] Comment on above: Performed By: #### B MP ####[facility] Zdlynlugvd86[address] [place], [place] [address]Dr. Charlee Michel Urea nitrogen [Mass/Vol] 4.0 mg/dL Critically low 7.0-18.0 [facility] Comment on above: Performed By: #### B MP ####[facility] Gtkvdiddzv027[address] [place], [place] [address]Dr. Charlee Michel Urea nitrogen/Creatinine [Mass ratio] 7.4 mg/mg Normal [facility] Comment on above: Performed By: #### B MP ####[facility] Ubrxylvptw[address] [place], [place] [address]Dr. Charlee Michel CBC AUTO DIFFon 04-16-2022 BASO # 0.0 103/ul Normal 0.0-0.1 [facility] Comment on above: Performed By: #### C BC ####[facility] Jeiaumsspo8[address] [place], [place] [address]Dr. Charlee Pearson Basophils/100 WBC (Bld) 0.2 % Normal 0.2-2.0 [facility] Comment on above: Performed By: #### C BC ####[facility] Yvatxyrwop124[address] [place], [place] [address]Dr. Charlee Pearson EO # 0.3 103/ul Normal 0.0-0.7 [facility] Comment on above: Performed By: #### C BC ####[facility] Acazydecqy7890 [place] [address]Dr. Charlee Pearson Eosinophils/100 WBC (Bld) 2.4 % Normal 0.9-7.[address] [facility] Comment on above: Performed By: #### C BC ####[facility] Yclwoovpne63[address] [place], [place] [address]Dr. Charlee Pearson Erythrocyte distribution width (RBC) [Ratio] 12.9 % Normal 11.0-15.[address] [facility] Comment on above: Performed By: #### C BC ####[facility] Tdgkcrnici60[address] [place], [place] [address]Dr. Charlee Pearson Hematocrit (Bld) [Volume fraction] 28.0 % Critically low 36.0-48.[address] [facility] Comment on above: Performed By: #### C BC ####[facility] Wvdtcbuuut[address] [place], [place] [address]Dr. Charlee Peasron Hemoglobin (Bld) [Mass/Vol] 9.8 g/dL Critically low 12.0-16.0 [facility] Comment on above: Performed By: #### C BC ####[facility] Zltzcjinac89[address] [place], [place] [address]Dr. Charlee Pearson IG # 0.06 10e3/ul Critically high 0.00-0.03 [facility] Comment on above: Performed By: #### C BC ####[facility] Xikrnmfglf73[address] [place], [place] [address]Dr. Charlee Pearson IG % 0.6 % Critically high 0.0-0.5 [facility] Comment on above: Performed By: #### C BC ####[facility] Lbgmnyllqn94[address] [place], [place] [address]Dr. Charlee Pearson LYMPH # 1.4 103/ul Normal 1.2-3.[address] [facility] Comment on above: Performed By: #### C BC ####[facility] Xysmbhmium7[address] [place], [place] [address]Dr. Charlee Pearson Lymphocytes/100 WBC (Bld) 13.1 % Critically low 20.5-60.[address] [facility] Comment on above: Performed By: #### C BC ####[facility] Nljpshotum0428 [place] [id number]. Charlee Pearson MANUAL DIFF REQ NO Normal [facility] Comment on above: Performed By: #### C BC ####[facility] Yltqxujtjp7578 [place] [id number]. Charlee Pearson MCH (RBC) [Entitic mass] 31.4 pg Normal 26.7-34.0 [facility] Comment on above: Performed By: #### C BC ####[facility] Vngjrlevxv7763 [place] [address]Dr. Charlee Pearson MCHC (RBC) [Mass/Vol] 35.0 g/dL Normal 29.9-35.2 [facility] Comment on above: Performed By: #### C BC ####[facility] Cyjyrhztkb5202 [place] [address]Dr. Charlee Pearson MCV (RBC) [Entitic vol] 89.7 fL Normal 81.0-99.0 [facility] Comment on above: Performed By: #### C BC ####[facility] Egeawahnup2987 [place] [id number]. Charlee Michel MONO # 1.7 103/ul Critically high 0.3-0.8 [facility] Comment on above: Performed By: #### C BC ####[facility] Ttxaecvrto0873 [place] [address]Dr. Charlee Michel Monocytes/100 WBC (Bld) 16.0 % Critically high 1.7-12. [address] [facility] Comment on above: Performed By: #### C BC ####[facility] Ipswxntdvw2139 [place] [address]Dr. Charlee Pearson NEUT # 7.1 103/ul Critically high 1.4-6.5 [facility] Comment on above: Performed By: #### C BC ####[facility] Oakjufejzn[address] [place], [place] [address]Dr. Charlee Michel Neutrophils/100 WBC (Bld) 67.7 % Normal 43.0-75.[address] [facility] Comment on above: Performed By: #### C BC ####[facility] Iqpeyzmjcq1505 [place] [id number]. Charlee Pearson Platelet mean volume (Bld) [Entitic vol] 9.0 fL Critically low 9.5-13.5 [facility] Comment on above: Performed By: #### C BC ####[facility] Femchxfcjw8853 [place] [id number]. Charlee Pearson PLT 454 103/ul Critically high 150-450 [facility] Comment on above: Performed By: #### C BC ####[facility] Ucdvbdxhxi0214 [place] [address]Dr. Charlee Pearson RBC 3.12 106/ul Critically low 4.20-5.40 [facility] Comment on above: Performed By: #### C BC ####[facility] Rpjfghtyam036[address] [place] [address]Dr. Charlee Pearson WBC 10.5 103/ul Normal 4.0-11.0 [facility] Comment on above: Performed By: #### C BC ####[facility] [address] [place] [address]Dr. Charlee Pearson PROF 14(COMP METB)on 022 Albumin [Mass/Vol] 2.7 g/dL Critically low 3.4-5.0 [facility] Comment on above: Performed By: #### C MP ####[facility] [address]kyw[address] [place] [address]Dr. Charlee Pearson Albumin/Globulin [Mass ratio] 0.8 {ratio} Normal [facility] Comment on above: Performed By: #### C MP ####[facility] Tnujuhmdvj[address] [place] [address]Dr. Charlee Pearson ALP [Catalytic activity/Vol] 86 U/L Normal 46-[address] [facility] Comment on above: Performed By: #### C MP ####[facility] W[address]zmmdtfe[address] [place] [address]Dr. Charlee Pearson ALT [Catalytic activity/Vol] 14 U/L Normal 14-59 [facility] Comment on above: Performed By: #### C MP ####[facility] Vavqeqvbvk6[address] [place] [id number]. Charlee Pearson Anion gap [Moles/Vol] 11.0 mmol/L Normal Th [facility] Comment on above: Performed By: #### C MP ####[facility] Nackghtzzl[address] [place] [id number]. Charlee Pearson AST [Catalytic activity/Vol] 15 U/L Normal 15-37 [facility] Comment on above: Performed By: #### C MP ####[facility] B[address]vmedfqg[address] [place] [id number]. Charlee Pearson Bilirubin [Mass/Vol] 0.6 mg/dL Normal 0.2-1.0 [facility] Comment on above: Performed By: #### C MP ####[facility] Xcflcsustx[address] [place], [place] [address]Dr. Charlee Pearson Calcium [Mass/Vol] 8.6 mg/dL Normal 8.5-10.1 [facility] Comment on above: Performed By: #### C MP ####[facility] Soiwxeccdd32[address] [place] [id number]. Charlee Pearson Chloride [Moles/Vol] 93 mmol/L Critically low 98-107 [facility] Comment on above: Performed By: #### C MP ####[facility] Wfgqjtunpv8189 [place] [id number]. Charlee Pearson CO2 [Moles/Vol] 25.3 mmol/L Normal 21.0-32.0 [facility] Comment on above: Performed By: #### C MP ####[facility] Ndiofdevnr97[address] [place] [id number]. Charlee Pearson Creatinine [Mass/Vol] 0.40 mg/dL Critically low 0.55-1.02 [facility] Comment on above: Performed By: #### C MP ####[facility] Yzhfgjdulu05[address] [place] [id number]. Charlee Michel EGFR-AF MICRONESIAN >60 Normal >=60 [facility] Comment on above: Performed By: #### C MP ####[facility] Ppokazegxk75[address] [place] [id number]. Charlee Pearson EGFR-NON AF MICRONESIAN >60 Normal >=60 [facility] Comment on above: Performed By: #### C MP ####[facility] Rvhpyyjigk[address] [place] [address]Dr. Charlee Pearson Globulin (S) [Mass/Vol] 3.6 g/dL Normal T [facility] Comment on above: Performed By: #### C MP ####[facility] Qdlscfbvpa6[address] [place] [address]Dr. Charlee Pearson Glucose [Mass/Vol] 93 mg/dL Normal 74-106 [facility] Comment on above: Performed By: #### C MP ####[facility] Glfbcbdaar[address] [place], [place] [address]Dr. Charlee Pearson Potassium [Moles/Vol] 4.3 mmol/L Normal 3.5-5.1 [facility] Comment on above: Performed By: #### C MP ####[facility] Xxbrqelrdq[address] [place], [place] [address]Dr. Charlee Pearson Protein [Mass/Vol] 6.3 g/dL Critically low 6.4-8.2 [facility] Comment on above: Performed By: #### C MP ####[facility] Ijxplnnlxf[address] [place], [place] [address]Dr. Charlee Pearson Sodium [Moles/Vol] 125 mmol/L Critically low 136-145 [facility] Comment on above: Performed By: #### C MP ####[facility] Swckssisuh[address] [place], [place] [address]Dr. Charlee Pearson Urea nitrogen [Mass/Vol] 2.0 mg/dL Critically low 7.0-18.0 [facility] Comment on above: Performed By: #### C MP ####[facility] Onxjdivahf94[address] [place], [place] [address]Dr. Charlee Pearson Urea nitrogen/Creatinine [Mass ratio] 5.0 mg/mg Normal [facility] Comment on above: Performed By: #### C MP ####[facility] Tgaeuhwbea[address] [place], [place] [address]Dr. Charlee Pearson PROF CHEM 8 (BAS METB)on Anion gap [Moles/Vol] 8.4 mmol/L Normal [facility] Comment on above: Performed By: #### B MP ####[facility] Mwjqdngbit6[address] [place] [address]Dr. Charlee Pearson Calcium [Mass/Vol] 8.1 mg/dL Critically low 8.5-10.1 Th [facility] Comment on above: Performed By: #### B MP ####[facility] Doftubabgh83[address] [place] [address]Dr. Charlee Pearson Chloride [Moles/Vol] 88 mmol/L Critically low 98-107 [facility] Comment on above: Performed By: #### B MP ####[facility] Ccjctpzhte96[address] [place] [address]Dr. Charlee Pearson CO2 [Moles/Vol] 28.1 mmol/L Normal 21.0-32.0 [facility] Comment on above: Performed By: #### B MP ####[facility] Fnnwqydoiu75[address] [place] [address]Dr. Charlee Pearson Creatinine [Mass/Vol] 0.50 mg/dL Critically low 0.55-1.02 [facility] Comment on above: Performed By: #### B MP ####[facility] Xqxywfhfpz05[address] [place] [address]Dr. Charlee Pearson EGFR-AF MICRONESIAN >60 Normal >=60 [facility] Comment on above: Performed By: #### B MP ####[facility] Nhqiiuhwqk22[address] [place] [address]Dr. Charlee Pearson EGFR-NON AF MICRONESIAN >60 Normal >=60 [facility] Comment on above: Performed By: #### B MP ####[facility] Jsjpgynbdj5480 [place] [address]Dr. Charlee Pearson Glucose [Mass/Vol] 106 mg/dL Normal 74-106 [facility] Comment on above: Performed By: #### B MP ####[facility] Pqihbfuise[address] [place] [address]Dr. Charlee Pearson Potassium [Moles/Vol] 3.5 mmol/L Normal 3.5-5.1 [facility] Comment on above: Performed By: #### B MP ####[facility] Kzpyarmsql69[address] [place] [address]Dr. Charlee Pearson Sodium [Moles/Vol] 121 mmol/L Critically low 136-145 Th [facility] Comment on above: Performed By: #### B MP ####[facility] Nuccgjpkwu[address] [place] [address]Dr. hCarlee Pearson Urea nitrogen [Mass/Vol] 4.0 mg/dL Critically low 7.0-18.0 [facility] Comment on above: Performed By: #### B MP ####[facility] Oarlruyzan[address] [place], [place] [address]Dr. Charlee Pearson Urea nitrogen/Creatinine [Mass ratio] 8.0 mg/mg Normal [facility] Comment on above: Performed By: #### B MP ####[facility] Ewnblttchf[address] [place], [place] [address]Dr. Charlee Pearson Anion gap [Moles/Vol] 8.0 mmol/L Normal [facility] Comment on above: Performed By: #### B MP ####[facility] Xdjcckgfxr[address] [place], [place] [address]Dr. Charlee Pearson Calcium [Mass/Vol] 8.7 mg/dL Normal 8.5-10.1 [facility] Comment on above: Performed By: #### B MP ####[facility] Zulundqrsw9[address] [place], [place] [address]Dr. Charlee Pearson Chloride [Moles/Vol] 90 mmol/L Critically low 98-107 [facility] Comment on above: Performed By: #### B MP ####[facility] Wwzpezhsra418[address] [place], [place] [address]Dr. Charlee Pearson CO2 [Moles/Vol] 29.8 mmol/L Normal 21.0-32.0 [facility] Comment on above: Performed By: #### B MP ####[facility] Fcyhldliyn[address] [place], [place] [address]Dr. Charlee Pearson Creatinine [Mass/Vol] 0.40 mg/dL Critically low 0.55-1.02 [facility] Comment on above: Performed By: #### B MP ####[facility] Jhskcqlotl99[address] [place] [address]Dr. Charlee Pearson EGFR-AF MICRONESIAN >60 Normal >=60 [facility] Comment on above: Performed By: #### B MP ####[facility] [address]zopiwn[address] [place] [address]Dr. Charlee Pearson EGFR-NON AF MICRONESIAN >60 Normal >=60 [facility] Comment on above: Performed By: #### B MP ####[facility] Nuhrkioyyh[address] [place], [place] [address]Dr. Charlee Pearson Glucose [Mass/Vol] 109 mg/dL Critically high 74-106 T [facility] Comment on above: Performed By: #### B MP ####[facility] Vtwwmuagkg5[address] [place], [place] [address]Dr. Charlee Pearson Potassium [Moles/Vol] 3.8 mmol/L Normal 3.5-5.1 [facility] Comment on above: Performed By: #### B MP ####[facility] Hhjtzibomj[address] [place], [place] [address]Dr. Charlee Pearson Sodium [Moles/Vol] 123 mmol/L Critically low 136-145 Th [facility] Comment on above: Result Comment: TEST REPEATED CRITICAL VALUE VERIFIED Performed By: #### B MP ####[facility] Oqpwdwdcck[address] [place], [place] [address]Dr. Charlee Pearson Urea nitrogen [Mass/Vol] 2.0 mg/dL Critically low 7.0-18.0 [facility] Comment on above: Performed By: #### B MP ####[facility] Repshwuoxg735[address] [place], [place] [address]Dr. Charlee Pearson Urea nitrogen/Creatinine [Mass ratio] 5.0 mg/mg Normal [facility] Comment on above: Performed By: #### B MP ####[facility] Wzvzbcbxow8[address] [place], [place] [address]Dr. Charlee Pearson Anion gap [Moles/Vol] 9.1 mmol/L Normal [facility] Comment on above: Performed By: #### B MP ####[facility] Kwcgbsrghp5042 [place] [address]Dr. Charlee Pearson Calcium [Mass/Vol] 8.6 mg/dL Normal 8.5-10.1 [facility] Comment on above: Performed By: #### B MP ####[facility] Ehniafmikj96[address] [place] [address]Dr. Charlee Pearson Chloride [Moles/Vol] 94 mmol/L Critically low 98-[address] [facility] Comment on above: Performed By: #### B MP ####[facility] Bruyuddsnb[address] [place], [place] [address]Dr. Charlee Pearson CO2 [Moles/Vol] 27.4 mmol/L Normal 21.0-32.0 [facility] Comment on above: Performed By: #### B MP ####[facility] Yfvlurofzh105[address] [place], [place] [address]Dr. Charlee Pearson Creatinine [Mass/Vol] 0.44 mg/dL Critically low 0.55-1.[address] [facility] Comment on above: Performed By: #### B MP ####[facility] Fvkygeswio720[address] [place], [place] [address]Dr. Charlee Michel EGFR-AF MICRONESIAN >60 Normal >=60 [facility] Comment on above: Performed By: #### B MP ####[facility] Hqkwknlwwi9[address] [place] [address]Dr. Charlee Michel EGFR-NON AF MICRONESIAN >60 Normal >=[address] [facility] Comment on above: Performed By: #### B MP ####[facility] Zlqkicjfdr9744 [place] [address]Dr. Charlee Michel Glucose [Mass/Vol] 93 mg/dL Normal 74-106 [facility] Comment on above: Performed By: #### B MP ####[facility] Nrxaiumlcl10[address] [place], [place] [address]Dr. Claudetteclaudette Michel Potassium [Moles/Vol] 4.5 mmol/L Normal 3.5-5.1 The [facility] Comment on above: Performed By: #### B MP ####[facility] Mcxjoziklo9[address] [place], [place] [address]Dr. Charlee Pearson Sodium [Moles/Vol] 126 mmol/L Critically low 136-145 Th [facility] Comment on above: Performed By: #### B MP ####[facility] Azqabgjiht950[address] [place], [place] [address]Dr. Charlee Michel Urea nitrogen [Mass/Vol] 3.0 mg/dL Critically low 7.0-18.0 [facility] Comment on above: Performed By: #### B MP ####[facility] Zwlynsobmq368[address] [place], [place] [address]Dr. Charlee Pearson Urea nitrogen/Creatinine [Mass ratio] 6.8 mg/mg Normal [facility] Comment on above: Performed By: #### B MP ####[facility] Oibrrphsav[address] [place], [place] [address]Dr. Charlee Pearson CBC AUTO DIFFon 04-15-2022 BASO # 0.0 103/ul Normal 0.0-0.1 [facility] Comment on above: Performed By: #### C BC ####[facility] Caijjpiynr017[address] [place], [place] [address]Dr. Charlee Pearson Basophils/100 WBC (Bld) 0.2 % Normal 0.2-2.0 [facility] Comment on above: Performed By: #### C BC ####[facility] Nkqitzinsy517[address] [place], [place] [address]Dr. Charlee Pearson EO # 0.0 103/ul Normal 0.0-0.7 [facility] Comment on above: Performed By: #### C BC ####[facility] Imhyfozvgp05[address] [place], [place] [address]Dr. Charlee Pearson Eosinophils/100 WBC (Bld) 0.0 % Critically low 0.9-7.0 [facility] Comment on above: Performed By: #### C BC ####[facility] Ysmiefnvob390[address] [place], [place] [address]Dr. Charlee Pearson Erythrocyte distribution width (RBC) [Ratio] 12.7 % Normal 11.0-15.0 [facility] Comment on above: Performed By: #### C BC ####[facility] Emetzkzfay1427 [place] [address]DrOttoniel Pearson Hematocrit (Bld) [Volume fraction] 32.2 % Critically low 36.0-48.0 [facility] Comment on above: Performed By: #### C BC ####[facility] Mqbywwsvrv4407 [place] [address]DrOttoniel Pearson Hemoglobin (Bld) [Mass/Vol] 11.2 g/dL Critically low 12.0-16.0 [facility] Comment on above: Performed By: #### C BC ####[facility] Ldgbtnlzvu44[address] [place], [place] [address]Dr. Charlee Pearson IG # 0.01 10e3/ul Normal 0.00-0.03 [facility] Comment on above: Performed By: #### C BC ####[facility] Hiotgaupzv[address] [place], [place] [address]DrOttoniel Pearson IG % 0.1 % Normal 0.0-0.5 [facility] Comment on above: Performed By: #### C BC ####[facility] Fwamzsdrca[address] [place], [place] [address]DrOttoniel Pearson LYMPH # 0.9 103/ul Critically low 1.2-3.8 [facility] Comment on above: Performed By: #### C BC ####[facility] Oedvyebvoq[address] [place], [place] [address]DrOttoniel Pearson Lymphocytes/100 WBC (Bld) 11.5 % Critically low 20.5-60.[address] [facility] Comment on above: Performed By: #### C BC ####[facility] Ligfdxbway150[address] [place], [place] [address]DrOttoniel Pearson MANUAL DIFF REQ NO Normal [facility] Comment on above: Performed By: #### C BC ####[facility] Zijpoyaiwr47[address] [place], [place] [address]DrOttoniel Pearson MCH (RBC) [Entitic mass] 31.0 pg Normal 26.7-34.0 [facility] Comment on above: Performed By: #### C BC ####[facility] Xmkqpjuesu3108 [place] [address]Dr. Claudetteclaudette Michel MCHC (RBC) [Mass/Vol] 34.8 g/dL Normal 29.9-35.2 [facility] Comment on above: Performed By: #### C BC ####[facility] Grltlifayf2906 [place] [address]Dr. Charlee Pearson MCV (RBC) [Entitic vol] 89.2 fL Normal 81.0-99.0 [facility] Comment on above: Performed By: #### C BC ####[facility] Ynkarsseny0854 [place] [address]DrOttoniel Pearson MONO # 1.2 103/ul Critically high 0.3-0.8 [facility] [place] Comment on above: Performed By: #### C BC ####[facility] Sqrjjbibsa[address] [place], [place] [address]Dr. Charlee Pearson Monocytes/100 WBC (Bld) 14.3 % Critically high 1.7-12. 0 [facility] Comment on above: Performed By: #### C BC ####[facility] Mbmsjxdhtc29[address] [place], [place] [address]DrOttoniel Pearson NEUT # 6.0 103/ul Normal 1.4-6.5 [facility] Comment on above: Performed By: #### C BC ####[facility] Dkqjjqxxvv906[address] [place], [place] [address]DrOttoniel Pearson Neutrophils/100 WBC (Bld) 73.9 % Normal 43.0-75.[address] [facility] Comment on above: Performed By: #### C BC ####[facility] Mfnuqromzs[address] [place], [place] [address]DrOttoniel Pearson Platelet mean volume (Bld) [Entitic vol] 8.8 fL Critically low 9.5-13.[address] [facility] Comment on above: Performed By: #### C BC ####[facility] Gnatuuajnw[address] [place], [place] [address]Dr. Charlee Paerson PLT 450 103/ul Normal 150-[address] [facility] Comment on above: Performed By: #### C BC ####[facility] Amblolphej27[address] [place], [place] [address]Gt. Charlee Pearson RBC 3.61 106/ul Critically low 4.20-5.40 [facility] [place] Comment on above: Performed By: #### C BC ####[facility] Hquqyjyymt3657 [place], [place] [address]Kz. Charlee Pearson WBC 8.1 103/ul Normal 4.0-11.[address] [facility] Comment on above: Performed By: #### C BC ####[facility] Jrnizemklx0632 [place], [place] [address]Ab. Charlee Pearson CREATININE URINEon 2 URINE CREAT 40.99 mg/dL Normal 20.00-300.00 [facility] Comment on above: Performed By: #### C DU POTTER ####[facility] Hmclqivckz0054 [place], [place] [address]Cr. Charlee Pearson CT ABD/PELV W CONon 04-15-[address] ABD/PELV W CON Normal [facility] Covid-19 PCR ([facility])on 03-25 SARS-CoV-2 (COVID-19) RNA LORENZO+probe Ql (Unsp spec) Not detected Normal NOT DETECTED [facility] Comment on above: Result Comment: When diagnostic testing is negative, the possibility of a false negative should be considered inthe context of a patient's recent exposures and the presence of clinical signs and symptomsconsistent with SARS-CoV-2.This test is not yet approved or cleared by the [place] FDA. When there are no FDA-approved or cleared tests available, and other criteria are met, FDA can make tests available under an emergency access mechanism called an Emergency Use Authorization (EUA). The EUA for this test is supported by the [place] of Health and Human Service's declaration that circumstances exist to justify the emergency use of in vitro diagnostics for the detection and/or diagnosis of the virus that causes COVID-19. This EUA will remain in effect for the duration of the COVID-19 declaration justifying emergency of IVDs, unless it is terminated or revoked by the FDA (after which the test may no longer be used). Performed By: #### C VDTB ####[facility] [address]dxfzhnpzm[address] [place], [place] [address]Dr. Charlee Pearson ER URINE PROFILEon 2 Bilirubin Ql (U) Negative Normal NEGATIVE [facility] Comment on above: Performed By: #### U MICRO, ERUR ####[facility] Hjiqtqkxai69[address] [place], [place] [address]Dr. Charlee Pearson Clarity (U) CLEAR Normal CLEAR [facility] Comment on above: Performed By: #### U MICRO, ERUR ####[facility] Bfeqkjnmpw[address] [place], [place] [address]Dr. Charlee Pearson Color (U) LT. YELLOW Normal YELLOW [facility] Comment on above: Performed By: #### U MICRO, ERUR ####[facility] Tguleuxoqj[address] [place], [place] [address]Dr. Charlee Pearson ERUAHD A micrscopic examination will be performed if indicated. Normal [facility] Comment on above: Performed By: #### U MICRO, ERUR ####[facility] Txoimjknzz[address] [place], [place] [address]Dr. Charlee Pearson Glucose Ql (U) Negative Normal NEGATIVE [facility] Comment on above: Performed By: #### U MICRO, ERUR ####[facility] Tyspnbbxfn298[address] [place], [place] [address]Dr. Charlee Pearson Hemoglobin Ql (U) SMALL Abnormal NEGATIVE [facility] Comment on above: Performed By: #### U MICRO, ERUR ####[facility] Duvtbxzkpi415[address] [place], [place] [address]Dr. Charlee Pearson Ketones Ql (U) 15 mg/dl Abnormal NEGATIVE [facility] Comment on above: Performed By: #### U MICRO, ERUR ####[facility] Tljgrrnyws[address] [place], [place] [address]Dr. Charlee Pearson LEUKOCYTES Negative Normal NEGATIVE [facility] Comment on above: Performed By: #### U MICRO, ERUR ####[facility] Hqkkophroz1688 [place] [address]Dr. Charlee Pearson Nitrite Ql (U) Negative Normal NEGATIVE [facility] Comment on above: Performed By: #### U MICRO, ERUR ####[facility] Spdjaengub07[address] [place] [address]Dr. Charlee Pearson pH (U) 6.5 [pH] Normal 5-[address] [facility] Comment on above: Performed By: #### U MICRO, ERUR ####[facility] Ghbkukykop[address] [place] [address]Dr. Charlee Pearson SPEC GRAVITY 1.010 Normal 1.005-<=1.025 [facility] [place] Comment on above: Performed By: #### U MICRO, ERUR ####[facility] Nmocsqvgyn[address] [place], [place] [address]Dr. Charlee Pearson UA PROTEIN Negative Normal NEGATIVE/ TRACE [facility] Comment on above: Performed By: #### U MICRO, ERUR ####[facility] Wiohzoadlo[address] [place], [place] [address]Dr. Charlee Pearson UR MICRO IND INDICATED Normal [facility] Comment on above: Performed By: #### U MICRO, ERUR ####[facility] Dzxwojqlms[address] [place], [place] [address]Dr. Charlee Pearson Urobilinogen Qn (U) 1.0 {Tye'U}/dL Normal 0.2 - 1. [address] [facility] Comment on above: Performed By: #### U MICRO, ERUR ####[facility] Lweyaibckp[address] [place], [place] [address]Dr. Charlee Pearson HEMOGLOBIN AND HEMATOCRITon 04-15-2022 Hematocrit (Bld) [Volume fraction] 32.0 % Critically low 36.0-48.[address] [facility] Comment on above: Performed By: #### H GBHCT ####[facility] Cyqfkdsjzd[address] [place], [place] [address]Dr. Charlee Pearson Hemoglobin (Bld) [Mass/Vol] 11.0 g/dL Critically low 12.0-16.[address] [facility] Comment on above: Performed By: #### H GBHCT ####[facility] [address]qyarhitqi20[address] [place] [address]Dr. Charlee Pearson LIPASEon 04-15-2022 Lipase [Catalytic activity/Vol] 62.0 U/L Critically low 73.0-393.0 [facility] Comment on above: Performed By: #### L IPA, CMP ####[facility] Dbrxugfhik215[address] [place], [place] [address]Dr. Charlee Pearson PROF 14(COMP METB)on 022 Albumin [Mass/Vol] 3.0 g/dL Critically low 3.4-5.0 [facility] Comment on above: Performed By: #### L IPA, CMP ####[facility] Qswsryriop[address] [place], [place] [address]Dr. Charlee Pearson Albumin/Globulin [Mass ratio] 0.7 {ratio} Normal [facility] Comment on above: Performed By: #### L IPA, CMP ####[facility] Hswttbpwgp8[address] [place], [place] [address]Dr. Charlee Pearson ALP [Catalytic activity/Vol] 104 U/L Normal 46-116 [facility] Comment on above: Performed By: #### L IPA, CMP ####[facility] Brooypswcg[address] [place], [place] [address]Dr. Charlee Pearson ALT [Catalytic activity/Vol] 17 U/L Normal 14-59 [facility] Comment on above: Performed By: #### L IPA, CMP ####[facility] Nlnegzphpi6[address] [place], [place] [address]Dr. Charlee Pearson Anion gap [Moles/Vol] 10.3 mmol/L Normal [facility] Comment on above: Performed By: #### L IPA, CMP ####[facility] Igylztdybw[address] [place], [place] [address]Dr. Charlee Pearson AST [Catalytic activity/Vol] 17 U/L Normal 15-37 [facility] Comment on above: Performed By: #### L IPA, CMP ####[facility] Dmlubzntsf404[address] [place], [place] [address]Dr. Charlee Pearson Bilirubin [Mass/Vol] 0.7 mg/dL Normal 0.2-1.0 [facility] Comment on above: Performed By: #### L IPA, CMP ####[facility] Xrfxzbhcvq[address] [place], [place] [address]Dr. Charlee Pearson Calcium [Mass/Vol] 8.7 mg/dL Normal 8.5-10.1 [facility] Comment on above: Performed By: #### L IPA, CMP ####[facility] Fucfyeazfo[address] [place], [place] [address]Dr. Charlee Pearson Chloride [Moles/Vol] 87 mmol/L Critically low 98-107 [facility] Comment on above: Performed By: #### L IPA, CMP ####[facility] Blmcxkhcvl204[address] [place], [place] [address]Dr. Charlee Pearson CO2 [Moles/Vol] 28.7 mmol/L Normal 21.0-32.0 [facility] Comment on above: Performed By: #### L IPA, CMP ####[facility] Wtxmpgdrna[address] [place], [place] [address]Dr. Charlee Pearson Creatinine [Mass/Vol] 0.45 mg/dL Critically low 0.55-1.02 [facility] Comment on above: Performed By: #### L IPA, CMP ####[facility] Quhtoahkpy[address] [place], [place] [address]Dr. Charlee Pearson EGFR-AF MICRONESIAN >60 Normal >=60 [facility] [facility] Comment on above: Performed By: #### L IPA, CMP ####[facility] [id number] [place], [place] [address]Dr. Claudetteclaudette Michel EGFR-NON AF MICRONESIAN >60 Normal >=60 [facility] Comment on above: Performed By: #### L IPA, CMP ####[facility] Qqxccfdauo[address] [place], [place] [address]Dr. Claudetteclaudette Pearson Globulin (S) [Mass/Vol] 4.3 g/dL Normal T [facility] Comment on above: Performed By: #### L IPA, CMP ####[facility] Umxhpqtmsn[address] [place], [place] [address]Dr. Charlee Pearson Glucose [Mass/Vol] 108 mg/dL Critically high 74-106 T [facility] Comment on above: Performed By: #### L IPA, CMP ####[facility] [address]vqvb[address]sl[address] [place] [address]Dr. Charlee Pearson Potassium [Moles/Vol] 3.0 mmol/L Critically low 3.5-5.[address] [facility] Comment on above: Performed By: #### L IPA, CMP ####[facility] [address]tisufnkqf[address] [place] [address]Dr. Charlee Pearson Protein [Mass/Vol] 7.3 g/dL Normal 6.4-8.2 [facility] Comment on above: Performed By: #### L IPA, CMP ####[facility] Sbcltcpbtq[address] [place], [place] [address]Dr. Charlee Pearson Sodium [Moles/Vol] 124 mmol/L Critically low 136-145 Th [facility] Comment on above: Result Comment: TEST REPEATED CRITICAL VALUE VERIFIED Performed By: #### L IPA, CMP ####[facility] Tsljzwgqlk9[address] [place], [place] [address]Dr. Charlee Pearson Urea nitrogen [Mass/Vol] 5.0 mg/dL Critically low 7.0-18.0 [facility] Comment on above: Performed By: #### L IPA, CMP ####[facility] Afchtftdyj7[address] [place], [place] [address]Dr. Charlee Pearson Urea nitrogen/Creatinine [Mass ratio] 11.1 mg/mg Normal [facility] Comment on above: Performed By: #### L IPA, CMP ####[facility] Xiaxbbitty[address] [place] [address]Dr. Charlee Pearson PROF CHEM 8 (BAS METB)on Anion gap [Moles/Vol] 9.5 mmol/L Normal [facility] Comment on above: Performed By: #### B MP ####[facility] Gdwblfzzci[address] [place] [address]Dr. Charlee Pearson Calcium [Mass/Vol] 8.6 mg/dL Normal 8.5-10.1 [facility] Comment on above: Performed By: #### B MP ####[facility] [address]uyfffek[address] [place] [address]Dr. Charlee Pearson Chloride [Moles/Vol] 93 mmol/L Critically low 98-107 [facility] Comment on above: Performed By: #### B MP ####[facility] [address]hafsypt[address] [place] [address]Dr. Charlee Michel CO2 [Moles/Vol] 26.8 mmol/L Normal 21.0-32.0 [facility] Comment on above: Performed By: #### B MP ####[facility] Dkdnvikxfs6[address] [place] [address]Dr. Charlee Pearson Creatinine [Mass/Vol] 0.51 mg/dL Critically low 0.55-1.02 [facility] Comment on above: Performed By: #### B MP ####[facility] Nmzeieamfy[address] [place], [place] [address]Dr. Claudetteclaudette Michel EGFR-AF MICRONESIAN >60 Normal >=60 [facility] Comment on above: Performed By: #### B MP ####[facility] Mhmsvvjjzr03[address] [place], [place] [address]Dr. Charlee Michel EGFR-NON AF MICRONESIAN >60 Normal >=60 [facility] Comment on above: Performed By: #### B MP ####[facility] Uxybpfpqjp228[address] [place], [place] [address]Dr. Charlee Pearson Glucose [Mass/Vol] 86 mg/dL Normal 74-106 [facility] Comment on above: Performed By: #### B MP ####[facility] Ylejarjbmb[address] [place] [address]Dr. Charlee Pearson Potassium [Moles/Vol] 3.3 mmol/L Critically low 3.5-5.1 [facility] Comment on above: Performed By: #### B MP ####[facility] Leffhhocsv[address] [place] [address]Dr. Charlee Pearson Sodium [Moles/Vol] 126 mmol/L Critically low 136-145 Th [facility] Comment on above: Performed By: #### B MP ####[facility] Umecocytqm3389 [place] [address]Dr. Charlee Pearson Urea nitrogen [Mass/Vol] 3.0 mg/dL Critically low 7.0-18.0 [facility] Comment on above: Performed By: #### B MP ####[facility] Wipyrovrbq62[address] [place], [place] [address]Dr. Charlee Pearson Urea nitrogen/Creatinine [Mass ratio] 5.9 mg/mg Normal [facility] Comment on above: Performed By: #### B MP ####[facility] Tcechrrxsk11[address] [place], [place] [address]Dr. Charlee Pearson SODIUM RANDOM URINEon 2021 Sodium (U) [Moles/Vol] 34 mmol/L Normal 30-90 [facility] Comment on above: Performed By: #### C ABBEY, DU ####[facility] Pqdmxshqmd[address] [place], [place] [address]Dr. Charlee Pearson TSHon 04-15-2022 TSH 5.719 uIU/mL Critically high 0.358-3.740 [facility] Comment on above: Performed By: #### T SH ####[facility] Nlcewaxcst7[address] [place], [place] [address]Dr. Charlee Pearson URINE MICROSCOPIC ONLYon BACTERIA TRACE Abnormal NONE SEEN [facility] Comment on above: Performed By: #### U MICRO, ERUR ####[facility] Zlwjxakydv[address] [place], [place] [address]Dr. Charlee Pearson Bacteria identified Cx Nom (U) NOT INDICATED Normal [facility] Comment on above: Performed By: #### U MICRO, ERUR ####[facility] Wshwwxeavv16[address] [place], [place] [address]Dr. Charlee Pearson CAST NONE SEEN Normal NONE SEEN [facility] Comment on above: Performed By: #### U MICRO, ERUR ####[facility] Wlxyydqqmi[address] [place], [place] [address]Dr. Charlee Michel Crystals LM Nom (Urine sed) NONE SEEN Normal NONE SEEN [facility] Comment on above: Performed By: #### U MICRO, ERUR ####[facility] Vvioywtymb2934 [place] [address]Dr. Charlee Pearson Epithelial cells LM Ql (Urine sed) FEW Abnormal NONE SEEN /RARE [facility] Comment on above: Performed By: #### U MICRO, ERUR ####[facility] Ecuuvblxvj0306 [place] [address]Dr. Charlee Pearson MUCOUS NONE SEEN Normal NONE SEEN [facility] Comment on above: Performed By: #### U MICRO, ERUR ####[facility] Mknjyafdvm0196 [place] [address]Dr. Charlee Pearson RBC 2-5 Abnormal 0-[address] [facility] Comment on above: Performed By: #### U MICRO, ERUR ####[facility] Ddiievcxuf0194 [place] [address]Dr. Claudetteclaudette Pearson WBC NONE SEEN Normal NONE SEEN [facility] Comment on above: Performed By: #### U MICRO, ERUR ####[facility] Cczgrajdku56[address] [place], [place] [address]Dr. Claudetteclaudette Pearson XR ABD FLAT UP_PA Lorrie 04-15 XR ABD FLAT UP_PA CH Normal [facility] CBC AUTO DIFFon 03-30-2022 BASO # 0.0 103/ul Normal 0.0-0.[address] [facility] Comment on above: Performed By: #### C BC ####[facility] Ghryergpzj8[address] [place], [place] [address]Dr. Charlee Pearson Basophils/100 WBC (Bld) 0.1 % Critically low 0.2-2.[address] [facility] Comment on above: Performed By: #### C BC ####[facility] Zqodtmhqok[address] [place], [place] [address]Dr. Charlee Pearson EO # 0.0 103/ul Normal 0.0-0.[address] [facility] Comment on above: Performed By: #### C BC ####[facility] Wwtblirkzh7[address] [place], [place] [address]Dr. Charlee Pearson Eosinophils/100 WBC (Bld) 0.2 % Critically low 0.9-7.[address] [facility] Comment on above: Performed By: #### C BC ####[facility] Seckrbtfez26[address] [place] [address]Dr. Charlee Pearson Erythrocyte distribution width (RBC) [Ratio] 12.7 % Normal 11.0-15.0 [facility] Comment on above: Performed By: #### C BC ####[facility] Rptgecygxf5160 [place] [address]Dr. Charlee Pearson Hematocrit (Bld) [Volume fraction] 30.7 % Critically low 36.0-48.0 [facility] Comment on above: Performed By: #### C BC ####[facility] Zryzbngvgg[address] [place], [place] [address]Dr. Charlee Pearson Hemoglobin (Bld) [Mass/Vol] 10.4 g/dL Critically low 12.0-16.0 [facility] Comment on above: Performed By: #### C BC ####[facility] Akbywqhygk247[address] [place], [place] [address]DrOttoniel Charlee Pearson IG # 0.12 10e3/ul Critically high 0.00-0.03 [facility] Comment on above: Performed By: #### C BC ####[facility] Azrnngqsve95[address] [place], [place] [address]DrOttoniel Charlee Pearson IG % 0.9 % Critically high 0.0-0.5 [facility] Comment on above: Performed By: #### C BC ####[facility] Dicwwtyudq[address] [place], [place] [address]DrOttoniel Charlee Michel LYMPH # 1.6 103/ul Normal 1.2-3.[address] [facility] Comment on above: Performed By: #### C BC ####[facility] Siqgveltfw74[address] [place], [place] [address]DrOttoniel Charlee Michel Lymphocytes/100 WBC (Bld) 11.8 % Critically low 20.5-60.0 [facility] Comment on above: Performed By: #### C BC ####[facility] Kztktjoeal[address] [place], [place] [address]DrOttoniel Charlee Michel MANUAL DIFF REQ NO Normal [facility] Comment on above: Performed By: #### C BC ####[facility] Pfdjwipwcu7001 [place] [address]DrOttoniel Pearson MCH (RBC) [Entitic mass] 31.2 pg Normal 26.7-34.0 [facility] Comment on above: Performed By: #### C BC ####[facility] Adlufcthix3293 [place] [address]DrOttoniel Pearson MCHC (RBC) [Mass/Vol] 33.9 g/dL Normal 29.9-35.2 [facility] Comment on above: Performed By: #### C BC ####[facility] Nduayyubnf6449 [place] [address]DrOttoniel Pearson MCV (RBC) [Entitic vol] 92.2 fL Normal 81.0-99.0 [facility] Comment on above: Performed By: #### C BC ####[facility] Eycytbhstb[address] [place], [place] [address]DrOttoniel Pearson MONO # 1.2 103/ul Critically high 0.3-0.8 [facility] Comment on above: Performed By: #### C BC ####[facility] Geabbaxhhj[address] [place], [place] [address]DrOttoniel Pearson Monocytes/100 WBC (Bld) 8.4 % Normal 1.7-12.0 [facility] Comment on above: Performed By: #### C BC ####[facility] Ifeykglgcf674[address] [place], [place] [address]DrOttoniel Pearson NEUT # 10.8 103/ul Critically high 1.4-6.5 [facility] Comment on above: Performed By: #### C BC ####[facility] Tufdnocywi823[address] [place], [place] [address]DrOttoniel Pearson Neutrophils/100 WBC (Bld) 78.6 % Critically high 43.0-75.0 [facility] Comment on above: Performed By: #### C BC ####[facility] Eauwcgxtog[address] [place], [place] [address]DrOttoniel Pearson Platelet mean volume (Bld) [Entitic vol] 9.4 fL Critically low 9.5-13.5 [facility] Comment on above: Performed By: #### C BC ####[facility] Umbzssfybb[address] [place] [address]Dr. Charlee Pearson PLT 340 103/ul Normal 150-450 [facility] Comment on above: Performed By: #### C BC ####[facility] Pmeesmclwr3271 [place] [address]Dr. Charlee Pearson RBC 3.33 106/ul Critically low 4.20-5.40 [facility] Comment on above: Performed By: #### C BC ####[facility] Ubddozvvwe1245 [place] [address]Dr. Charlee Pearson WBC 13.7 103/ul Critically high 4.0-11.0 [facility] Comment on above: Performed By: #### C BC ####[facility] Azjtbfjabl4386 [place] [address]DrOttoniel Pearson PROF 14(COMP METB)on 022 Albumin [Mass/Vol] 2.4 g/dL Critically low 3.4-5.0 [facility] Comment on above: Performed By: #### C MP ####[facility] Vlwtsvjxls[address] [place], [place] [address]Dr. Charlee Pearson Albumin/Globulin [Mass ratio] 0.8 {ratio} Normal [facility] Comment on above: Performed By: #### C MP ####[facility] Msfvgdkvkj6856 [place] [address]Dr. Charlee Pearson ALP [Catalytic activity/Vol] 62 U/L Normal 46-[address] [facility] Comment on above: Performed By: #### C MP ####[facility] Nxqrmjjpws3268 [place] [address]Dr. Charlee Pearson ALT [Catalytic activity/Vol] 46 U/L Normal 14-59 [facility] Comment on above: Performed By: #### C MP ####[facility] Cjcdrkhdli[address] [place], [place] [address]DrOttoniel Pearson Anion gap [Moles/Vol] 8.0 mmol/L Normal [facility] Comment on above: Performed By: #### C MP ####[facility] Bcfuzmujla1717 [place] [address]Dr. Charlee Pearson AST [Catalytic activity/Vol] 14 U/L Critically low 15-37 [facility] Comment on above: Performed By: #### C MP ####[facility] Tgrwkxyhyi249[address] [place], [place] [address]Dr. Charlee Michel Bilirubin [Mass/Vol] 0.4 mg/dL Normal 0.2-1.0 [facility] Comment on above: Performed By: #### C MP ####[facility] Axqegzsqiq997[address] [place], [place] [address]Dr. Claudetteclaudette Michel Calcium [Mass/Vol] 8.4 mg/dL Critically low 8.5-10.1 Th [facility] Comment on above: Performed By: #### C MP ####[facility] Zwheetvjiq406[address] [place], [place] [address]Dr. Claudetteclaudette Pearson Chloride [Moles/Vol] 99 mmol/L Normal 98-107 [facility] Comment on above: Performed By: #### C MP ####[facility] Sacjpdmaju[address] [place], [place] [address]Dr. Charlee Michel CO2 [Moles/Vol] 30.9 mmol/L Normal 21.0-32.0 [facility] Comment on above: Performed By: #### C MP ####[facility] Kmwuibudvd42[address] [place], [place] [address]Dr. Claudetteclaudette Michel Creatinine [Mass/Vol] 0.43 mg/dL Critically low 0.55-1.02 [facility] Comment on above: Performed By: #### C MP ####[facility] Hbpmlwjaub737[address] [place], [place] [address]Dr. Charlee Pearson EGFR-AF MICRONESIAN >60 Normal >=60 [facility] Comment on above: Performed By: #### C MP ####[facility] Ifgwyfsnnl05[address] [place], [place] [address]Dr. Charlee Pearson EGFR-NON AF MICRONESIAN >60 Normal >=[address] [facility] Comment on above: Performed By: #### C MP ####[facility] Mykkcgyvfi8763 [place] [address]Dr. Charlee Pearson Globulin (S) [Mass/Vol] 3.0 g/dL Normal T [facility] Comment on above: Performed By: #### C MP ####[facility] Ajsnmzqffv6753 [place] [address]Dr. Charlee Pearson Glucose [Mass/Vol] 82 mg/dL Normal 74-106 [facility] Comment on above: Performed By: #### C MP ####[facility] Ymcovrwaih5497 [place] [address]Dr. Charlee Pearson Potassium [Moles/Vol] 3.9 mmol/L Normal 3.5-5.1 [facility] Comment on above: Performed By: #### C MP ####[facility] Jsiufasyjp7749 [place] [address]Dr. Charlee Pearson Protein [Mass/Vol] 5.4 g/dL Critically low 6.4-8.2 [facility] Comment on above: Performed By: #### C MP ####[facility] Dknqssbdbr16[address] [place], [place] [address]Dr. Charlee Pearson Sodium [Moles/Vol] 134 mmol/L Critically low 136-145 [facility] Comment on above: Performed By: #### C MP ####[facility] Eklsrbfuxl25[address] [place], [place] [address]Dr. Charlee Pearson Urea nitrogen [Mass/Vol] 11.0 mg/dL Normal 7.0-18.0 [facility] Comment on above: Performed By: #### C MP ####[facility] Aodjueqjjt4075 [place] [address]Dr. Charlee Michel Urea nitrogen/Creatinine [Mass ratio] 25.6 mg/mg Normal [facility] Comment on above: Performed By: #### C MP ####[facility] Ffrtbbpboe8745 [place] [address]Dr. Charlee Michel CBC AUTO DIFFon 03-29-2022 BASO # 0.0 103/ul Normal 0.0-0.1 [facility] Comment on above: Performed By: #### C BC ####[facility] Hjqhfrzzfy9062 [place] [address]Dr. Charlee Michel Basophils/100 WBC (Bld) 0.2 % Normal 0.2-2.0 [facility] Comment on above: Performed By: #### C BC ####[facility] Znogtxpvsm[address] [place], [place] [address]Dr. Charlee Pearson EO # 0.0 103/ul Normal 0.0-0.7 [facility] Comment on above: Performed By: #### C BC ####[facility] Fssnjxjuni20[address] [place], [place] [address]Dr. Charlee Pearson Eosinophils/100 WBC (Bld) 0.1 % Critically low 0.9-7.0 [facility] Comment on above: Performed By: #### C BC ####[facility] Qpvyqbuwih137[address] [place], [place] [address]Dr. Charlee Pearson Erythrocyte distribution width (RBC) [Ratio] 13.1 % Normal 11.0-15.0 [facility] Comment on above: Performed By: #### C BC ####[facility] Vczmsqlflm[address] [place], [place] [address]Dr. Claudetteclaudette Pearson Hematocrit (Bld) [Volume fraction] 29.3 % Critically low 36.0-48.0 [facility] Comment on above: Performed By: #### C BC ####[facility] Sqtdmefdcq[address] [place], [place] [address]Dr. Charlee Michel Hemoglobin (Bld) [Mass/Vol] 10.0 g/dL Critically low 12.0-16.0 [facility] Comment on above: Performed By: #### C BC ####[facility] Wmqrmxqugn[address] [place], [place] [address]Dr. Charlee Pearson IG # 0.23 10e3/ul Critically high 0.00-0.03 [facility] Comment on above: Performed By: #### C BC ####[facility] Dncqliflmd[address] [place], [place] [address]Dr. Charlee Pearson IG % 1.2 % Critically high 0.0-0.5 [facility] Comment on above: Performed By: #### C BC ####[facility] Ijrudawepl3008 [place] [address]Dr. Charlee Pearson LYMPH # 1.3 103/ul Normal 1.2-3.8 [facility] Comment on above: Performed By: #### C BC ####[facility] Bxyoqzjtmu2301 [place] [address]Dr. Charlee Pearson Lymphocytes/100 WBC (Bld) 7.0 % Critically low 20.5-60.0 [facility] Comment on above: Performed By: #### C BC ####[facility] Mxwujacwws[address] [place], [place] [address]Dr. Charlee Pearson MANUAL DIFF REQ NO Normal [facility] Comment on above: Performed By: #### C BC ####[facility] Xqcgsmjckc022[address] [place], [place] [address]Dr. Charlee Pearson MCH (RBC) [Entitic mass] 31.8 pg Normal 26.7-34.0 [facility] Comment on above: Performed By: #### C BC ####[facility] Qmaeefnciv9[address] [place], [place] [address]Dr. Charlee Pearson MCHC (RBC) [Mass/Vol] 34.1 g/dL Normal 29.9-35.2 [facility] Comment on above: Performed By: #### C BC ####[facility] Hjonivgsap[address] [place], [place] [address]Dr. Charlee Pearson MCV (RBC) [Entitic vol] 93.3 fL Normal 81.0-99.0 [facility] Comment on above: Performed By: #### C BC ####[facility] Dcwfaqlola426[address] [place], [place] [address]Dr. Charlee Pearson MONO # 1.2 103/ul Critically high 0.3-0.8 [facility] Comment on above: Performed By: #### C BC ####[facility] Uwsfmzwwpy8[address] [place], [place] [address]Dr. Charlee Pearson Monocytes/100 WBC (Bld) 6.1 % Normal 1.7-12.0 [facility] Comment on above: Performed By: #### C BC ####[facility] Ikkjpurhhz3385 [place] [address]Dr. Charlee Pearson NEUT # 16.2 103/ul Critically high 1.4-6.5 [facility] Comment on above: Performed By: #### C BC ####[facility] Psxjtosjbo7113 [place] [address]Dr. Charlee Pearson Neutrophils/100 WBC (Bld) 85.4 % Critically high 43.0-75.[address] [facility] Comment on above: Performed By: #### C BC ####[facility] Oaefzceccy924[address] [place], [place] [address]Dr. Charlee Pearson Platelet mean volume (Bld) [Entitic vol] 9.2 fL Critically low 9.5-13.5 [facility] Comment on above: Performed By: #### C BC ####[facility] Uinrzrqguj[address] [place], [place] [address]Dr. Charlee Pearson PLT 327 103/ul Normal 150-[address] [facility] Comment on above: Performed By: #### C BC ####[facility] Fwkjyxrbhp[address] [place], [place] [address]Dr. Charlee Pearson RBC 3.14 106/ul Critically low 4.20-5.40 [facility] Comment on above: Performed By: #### C BC ####[facility] Sbllznimck5890 [place] [id number] Charlee Pearson WBC 18.9 103/ul Critically high 4.0-11.0 [facility] Comment on above: Performed By: #### C BC ####[facility] Ujgovnfthc[address] [place], [place] [address]DrOttoniel Charlee Michel HEPATITIS PANEL, ACUTEon HBsAg Screen Negative Normal Negative [facility] Comment on above: Performed By: #### H EPACUT ####[facility] Hfetuozhyo[address] [place], [place] [address]Dr. Claudetteclaudette Pearson HCV AB 0.1 s/co ratio Normal 0.0-0.9 [facility] Comment on above: Performed By: #### H EPACUT ####[facility] Mjmfvkqqsi8985 [place] [address]Dr. Charlee Pearson Hep A Ab, IgM Negative Normal Negative [facility] Comment on above: Performed By: #### H EPACUT ####[facility] Zdbjvxhnwu4111 [place] [address]Dr. Charlee Pearson Hep B Core Ab, IgM Negative Normal Negative [facility] Comment on above: Performed By: #### H EPACUT ####[facility] Gcixloajxu0526 [place] [address]Dr. Charlee Pearson Interpretation: Comment Normal [facility] Comment on above: Result Comment: Nega tiDawnaot infected with HCV, unless recent infection is suspected or otherevidence exists to indicate HCV infection. Performed By: #### H EPACUT ####[facility] Cozcywxsvc0552 [place] [address]Dr. Charlee Pearson PROF 14(COMP METB)on 022 Albumin [Mass/Vol] 2.2 g/dL Critically low 3.4-5.0 Th [facility] Comment on above: Performed By: #### C MP ####[facility] Dfhwhsddsf6446 [place] [address]Dr. Charlee Pearson Albumin/Globulin [Mass ratio] 0.8 {ratio} Normal [facility] Comment on above: Performed By: #### C MP ####[facility] Rmcypbgkyf3452 [place] [address]Dr. Charlee Pearson ALP [Catalytic activity/Vol] 55 U/L Normal 46-[address] [facility] Comment on above: Performed By: #### C MP ####[facility] Inrqfqtisd7983 [place] [address]Dr. Charlee Pearson ALT [Catalytic activity/Vol] 49 U/L Normal 14-59 [facility] Comment on above: Performed By: #### C MP ####[facility] Fwzvldatzi[address] [place], [place] [address]Dr. Charlee Pearson Anion gap [Moles/Vol] 7.0 mmol/L Normal [facility] Comment on above: Performed By: #### C MP ####[facility] Octtygfkli9055 [place] [address]Dr. Charlee Pearson AST [Catalytic activity/Vol] 13 U/L Critically low 15-[address] [facility] Comment on above: Performed By: #### C MP ####[facility] Ltzbrxbfxu5717 [place] [address]Dr. Charlee Michel Bilirubin [Mass/Vol] 0.4 mg/dL Normal 0.2-1.[address] [facility] Comment on above: Performed By: #### C MP ####[facility] Ngxiyvsugf[address] [place], [place] [address]Dr. Charlee Michel Calcium [Mass/Vol] 8.3 mg/dL Critically low 8.5-10.1 [facility] Comment on above: Performed By: #### C MP ####[facility] Nrrvmousjd8[address] [place], [place] [address]Dr. Charlee Michel Chloride [Moles/Vol] 100 mmol/L Normal 98-[address] [facility] Comment on above: Performed By: #### C MP ####[facility] Cxlxdsytjq[address] [place], [place] [address]Dr. Charlee Michel CO2 [Moles/Vol] 31.5 mmol/L Normal 21.0-32.0 [facility] Comment on above: Performed By: #### C MP ####[facility] Xpbmbmprcx[address] [place], [place] [address]Dr. Charlee Michel Creatinine [Mass/Vol] 0.48 mg/dL Critically low 0.55-1.[address] [facility] Comment on above: Performed By: #### C MP ####[facility] Ckxpihkose[address] [place], [place] [address]Dr. Charlee Michel EGFR-AF MICRONESIAN >60 Normal >=60 [facility] Comment on above: Performed By: #### C MP ####[facility] Hlrabhllwg[address] [place], [place] [address]Dr. Charlee Pearson EGFR-NON AF MICRONESIAN >60 Normal >=60 [facility] Comment on above: Performed By: #### C MP ####[facility] Tmdkyjmlgn85[address] [place] [address]Dr. Charlee Pearson Globulin (S) [Mass/Vol] 2.8 g/dL Normal [facility] [facility] Comment on above: Performed By: #### C MP ####[facility] Ygkfopjqhz[address] [place] [address]Dr. Charlee Pearson Glucose [Mass/Vol] 84 mg/dL Normal 74-106 [facility] Comment on above: Performed By: #### C MP ####[facility] Bxaubxvlrg95[address] [place] [address]Dr. Charlee Michel Potassium [Moles/Vol] 3.5 mmol/L Normal 3.5-5.1 [facility] Comment on above: Performed By: #### C MP ####[facility] Jiagsqrccy7[address] [place], [place] [address]Dr. Charlee Pearson Protein [Mass/Vol] 5.0 g/dL Critically low 6.4-8.2 [facility] Comment on above: Performed By: #### C MP ####[facility] Bqkbdjofps326[address] [place], [place] [address]Dr. Charlee Pearson Sodium [Moles/Vol] 135 mmol/L Critically low 136-145 [facility] Comment on above: Performed By: #### C MP ####[facility] Jkrrwunynm55[address] [place] [address]Dr. Charlee Pearson Urea nitrogen [Mass/Vol] 14.0 mg/dL Normal 7.0-18.0 [facility] Comment on above: Performed By: #### C MP ####[facility] Akpnzljgzp8[address] [place], [place] [address]Dr. Charlee Pearson Urea nitrogen/Creatinine [Mass ratio] 29.2 mg/mg Normal [facility] Comment on above: Performed By: #### C MP ####[facility] Zrvkllxpph0943 [place] [address]Dr. Charlee Michel CBC AUTO DIFFon 03-28-2022 BASO # 0.0 103/ul Normal 0.0-0.[address] [facility] Comment on above: Performed By: #### C BC ####[facility] Ykkbdujmcy168[address] [place], [place] [address]DrOttoniel Pearson Basophils/100 WBC (Bld) 0.1 % Critically low 0.2-2.0 [facility] Comment on above: Performed By: #### C BC ####[facility] Fvbgxentnz8[address] [place], [place] [address]DrOttoniel Pearson EO # 0.0 103/ul Normal 0.0-0.[address] [facility] Comment on above: Performed By: #### C BC ####[facility] Lemyvljpyt528[address] [place], [place] [address]DrOttoniel Pearson Eosinophils/100 WBC (Bld) 0.1 % Critically low 0.9-7.0 [facility] Comment on above: Performed By: #### C BC ####[facility] Vddjzolgso342[address] [place], [place] [address]DrOttoniel Pearson Erythrocyte distribution width (RBC) [Ratio] 13.0 % Normal 11.0-15.0 [facility] Comment on above: Performed By: #### C BC ####[facility] Pevasyxnuo014[address] [place], [place] [address]DrOttoniel Pearson Hematocrit (Bld) [Volume fraction] 29.2 % Critically low 36.0-48.0 [facility] Comment on above: Performed By: #### C BC ####[facility] Tffjqidory524[address] [place], [place] [address]DrOttoniel Pearson Hemoglobin (Bld) [Mass/Vol] 9.9 g/dL Critically low 12.0-16.[address] [facility] Comment on above: Performed By: #### C BC ####[facility] Bcwgwghdtq170[address] [place], [place] [address]DrOttoniel Pearson IG # 0.36 10e3/ul Critically high 0.00-0.03 [facility] Comment on above: Performed By: #### C BC ####[facility] Ykrodsnhzs9[address] [place], [place] [address]Dr. Charlee Pearson IG % 1.9 % Critically high 0.0-0.5 [facility] Comment on above: Performed By: #### C BC ####[facility] Buvxlzziwq9460 [place] [address]DrOttoniel Pearson LYMPH # 1.3 103/ul Normal 1.2-3.8 [facility] Comment on above: Performed By: #### C BC ####[facility] Fmfqvjnuhb4190 [place] [address]DrOttoniel Pearson Lymphocytes/100 WBC (Bld) 6.4 % Critically low 20.5-60.0 [facility] Comment on above: Performed By: #### C BC ####[facility] Docgjsyxkl174[address] [place], [place] [address]DrOttoniel Pearson MANUAL DIFF REQ NO Normal [facility] Comment on above: Performed By: #### C BC ####[facility] Lsjsancadi027[address] [place], [place] [address]DrOttoniel Pearson MCH (RBC) [Entitic mass] 31.6 pg Normal 26.7-34.0 [facility] Comment on above: Performed By: #### C BC ####[facility] Wzvweatkgc214[address] [place], [place] [address]DrOttoniel Pearson MCHC (RBC) [Mass/Vol] 33.9 g/dL Normal 29.9-35.2 [facility] Comment on above: Performed By: #### C BC ####[facility] Kygvkmroet405[address] [place], [place] [address]DrOttoniel Pearson MCV (RBC) [Entitic vol] 93.3 fL Normal 81.0-99.0 [facility] Comment on above: Performed By: #### C BC ####[facility] Kxftajmrhq5365 [place] [address]DrOttoniel Pearson MONO # 1.3 103/ul Critically high 0.3-0.8 [facility] [place] Comment on above: Performed By: #### C BC ####[facility] Uoydjnjgir434[address] [place], [place] [address]DrOttoniel Pearson Monocytes/100 WBC (Bld) 6.7 % Normal 1.7-12.0 [facility] Comment on above: Performed By: #### C BC ####[facility] Spfpzkpfei6995 [place] [address]Dr. Charlee Pearson NEUT # 16.5 103/ul Critically high 1.4-6.5 [facility] Comment on above: Performed By: #### C BC ####[facility] Zmfwwknmph3268 [place] [address]Dr. Charlee Pearson Neutrophils/100 WBC (Bld) 84.8 % Critically high 43.0-75.0 [facility] Comment on above: Performed By: #### C BC ####[facility] Snoxewgnbq20[address] [place], [place] [address]Dr. Charlee Michel Platelet mean volume (Bld) [Entitic vol] 9.1 fL Critically low 9.5-13.5 [facility] Comment on above: Performed By: #### C BC ####[facility] Klmyqkkpfy4[address] [place] [address]Dr. Charlee Michel PLT 355 103/ul Normal 150-450 [facility] Comment on above: Performed By: #### C BC ####[facility] Xehmmdfflk907[address] [place], [place] [address]Dr. Claudetteclaudette Michel RBC 3.13 106/ul Critically low 4.20-5.40 [facility] Comment on above: Performed By: #### C BC ####[facility] Yjopjgicqy133[address] [place], [place] [address]DrOttoniel Wilkinsclaudette Michel WBC 19.4 103/ul Critically high 4.0-11.0 [facility] Comment on above: Performed By: #### C BC ####[facility] Kjqltabthq2639 [place] [address]DrOttoniel Pearson PROF 14(COMP METB)on 022 Albumin [Mass/Vol] 2.2 g/dL Critically low 3.4-5.0 [facility] Comment on above: Performed By: #### C MP ####[facility] Ybrypqsuty0878 [place] [address]Dr. Charlee Pearson Albumin/Globulin [Mass ratio] 0.8 {ratio} Normal [facility] Comment on above: Performed By: #### C MP ####[facility] Ppkrtylwbi8779 [place] [address]Dr. Charlee Pearson ALP [Catalytic activity/Vol] 56 U/L Normal 46-116 [facility] Comment on above: Performed By: #### C MP ####[facility] Czizvgwoqa498[address] [place], [place] [address]Dr. Charlee Pearson ALT [Catalytic activity/Vol] 61 U/L Critically high 14-59 [facility] Comment on above: Performed By: #### C MP ####[facility] Fyktjdimzv145[address] [place], [place] [address]Dr. Charlee Pearson Anion gap [Moles/Vol] 7.9 mmol/L Normal [facility] Comment on above: Performed By: #### C MP ####[facility] Vrsnxzzskf135[address] [place], [place] [address]Dr. Charlee Pearson AST [Catalytic activity/Vol] 15 U/L Normal 15-37 [facility] Comment on above: Performed By: #### C MP ####[facility] Pptkfifmjh17360[address] [place], [place] [address]Dr. Charlee Pearson Bilirubin [Mass/Vol] 0.4 mg/dL Normal 0.2-1.0 [facility] Comment on above: Performed By: #### C MP ####[facility] Owekaqcwfh[address] [place], [place] [address]Dr. Charlee Pearson Calcium [Mass/Vol] 8.3 mg/dL Critically low 8.5-10.[address] [facility] Comment on above: Performed By: #### C MP ####[facility] Oxsddmqkgs520[address] [place], [place] [address]Dr. Charlee Pearson Chloride [Moles/Vol] 99 mmol/L Normal 98-[address] [facility] Comment on above: Performed By: #### C MP ####[facility] Hemtsqimra60230[address] [place], [place] [address]Dr. Charlee Pearson CO2 [Moles/Vol] 31.9 mmol/L Normal 21.0-32.0 [facility] Comment on above: Performed By: #### C MP ####[facility] Jlhnxsnevx9328 [place] [address]Dr. Charlee Michel Creatinine [Mass/Vol] 0.48 mg/dL Critically low 0.55-1.02 [facility] Comment on above: Performed By: #### C MP ####[facility] Lygeslxzmh45[address] [place] [id number]. Charlee Michel EGFR-AF MICRONESIAN >60 Normal >=60 [facility] Comment on above: Performed By: #### C MP ####[facility] Dxziikphig88[address] [place], [place] [address]Dr. Charlee Michel EGFR-NON AF MICRONESIAN >60 Normal >=60 [facility] Comment on above: Performed By: #### C MP ####[facility] Cbxdfpipfd726[address] [place], [place] [address]Dr. Charlee Michel Globulin (S) [Mass/Vol] 2.9 g/dL Normal T [facility] Comment on above: Performed By: #### C MP ####[facility] Evtiltbcde523[address] [place], [place] [address]Dr. Charlee Michel Glucose [Mass/Vol] 85 mg/dL Normal 74-106 [facility] Comment on above: Performed By: #### C MP ####[facility] Lugntxyrhj316[address] [place], [place] [address]Dr. Charlee Pearson Potassium [Moles/Vol] 3.8 mmol/L Normal 3.5-5.1 [facility] Comment on above: Performed By: #### C MP ####[facility] Xzhtgutztg[address] [place], [place] [address]Dr. Charlee Pearson Protein [Mass/Vol] 5.1 g/dL Critically low 6.4-8.2 Th [facility] Comment on above: Performed By: #### C MP ####[facility] Jhbezzaylo[address] [place], [place] [address]Dr. Charlee Pearson Sodium [Moles/Vol] 135 mmol/L Critically low 136-[address] [facility] Comment on above: Performed By: #### C MP ####[facility] Rlvrvnrfgb7726 [place] [address]Dr. Charlee Pearson Urea nitrogen [Mass/Vol] 15.0 mg/dL Normal 7.0-18.0 [facility] Comment on above: Performed By: #### C MP ####[facility] Mfrggqlhvr[address] [place] [address]Dr. Charlee Pearson Urea nitrogen/Creatinine [Mass ratio] 31.2 mg/mg Normal [facility] Comment on above: Performed By: #### C MP ####[facility] Xrgnfrfrjx1788 [place] [address]Dr. Charlee Pearson XR CHEST 2 Von 03-28-2022 XR CHEST [address] [facility] CBC W MANUAL DIFFon 03-27-20 ATYPICAL LYMPH # Normal [facility] Comment on above: Performed By: #### C BCMAN ####[facility] Owxudumhcj[address] [place], [place] [address]Dr. Charlee Pearson ATYPICAL LYMPH % Normal [facility] Comment on above: Performed By: #### C BCMAN ####[facility] Vxzfqcupsd[address] [place], [place] [address]Dr. Charlee Pearson BAND # 0.0 103/ul Normal 0.0-0.[address] [facility] Comment on above: Performed By: #### C BCMAN ####[facility] Bcuwkafkty6[address] [place] [address]Dr. Charlee Pearson BAND % 0 % Normal 0-[address] [facility] Comment on above: Performed By: #### C BCMAN ####[facility] Cccsnnxkcc9962 [place] [address]Dr. Charlee Pearson BASOM # 0.00 103/ul Normal 0.00-0.[address] [facility] Comment on above: Performed By: #### C BCMAN ####[facility] Pnyabdhvek0762 [place] [address]Dr. Charlee Michel BASOM % 0.0 % Critically low 0.2-2.0 [facility] Comment on above: Performed By: #### C BCJARON ####[facility] Gsrouyrwwr09[address] [place] [address]Dr. Charlee Pearson BLAST # Normal [facility] Comment on above: Performed By: #### C BCJARON ####[facility] Thmntcnpje85[address] [place] [id number]. Charlee Pearson BLAST % Normal [facility] Comment on above: Performed By: #### C BCJARON ####[facility] Pkkutnsmrh5010 [place] [address]Dr. Charlee Pearson CORRECTED WBC Normal 4.0-11.0 [facility] Comment on above: Performed By: #### C KERRIE ####[facility] Mvwrahwwkk[address] [place], [place] [address]Dr. Charlee Pearson EOS # 0.00 103/ul Normal 0.00-0.70 [facility] Comment on above: Performed By: #### C KERRIE ####[facility] Tgqxtrevgy9[address] [place], [place] [address]Dr. Charlee Pearson EOS% 0.0 % Critically low 0.9-7.0 [facility] Comment on above: Performed By: #### C KERRIE ####[facility] Yayvqxwezv360[address] [place], [place] [address]Dr. Charlee Pearson HCT 33.0 % Critically low 36.0-48.0 [facility] Comment on above: Performed By: #### C KERRIE ####[facility] Fbpdlzqfhg6[address] [place], [place] [address]Dr. Charlee Pearson HGB 11.0 g/dl Critically low 12.0-16.0 [facility] Comment on above: Performed By: #### C KERRIE ####[facility] Pjjighqllb274[address] [place], [place] [address]Dr. Charlee Pearson LYMPHM # 0.65 103/ul Critically low 1.20-3.80 [facility] [place] Comment on above: Performed By: #### C KERRIE ####[facility] Ldoepdymnn[address] [place], [place] [address]Dr. Charlee Pearson LYMPHM% 3.0 % Critically low 20.5-60.0 [facility] Comment on above: Performed By: #### C KERRIE ####[facility] Jsudpbnvrz4154 [place] [id number]. Charlee Pearson MCH 31.0 pg Normal 26.7-34.[address] [facility] Comment on above: Performed By: #### C KERRIE ####[facility] Koqtcskabo4216 [place] [id number]. Charlee Pearson MCHC 33.3 g/dl Normal 29.9-35.[address] [facility] Comment on above: Performed By: #### C KERRIE ####[facility] Enkqleyjnb4293 [place] [address]Dr. Charlee Pearson MCV 93.0 fL Normal 81.0-99.[address] [facility] Comment on above: Performed By: #### C KERRIE ####[facility] Bjinkhqsft[address] [place], [place] [address]Dr. Charlee Pearson METAMYELOCYTE # Normal [facility] [place] Comment on above: Performed By: #### C KERRIE ####[facility] Pftodjqkmd4058 [place] [address]Dr. Charlee Pearson METAMYELOCYTE % Normal [facility] [place] Comment on above: Performed By: #### C KERRIE ####[facility] Zqpdldkatp5768 [place] [address]Dr. Charlee Pearson MONOM# 0.00 103/ul Critically low 0.30-0.80 [facility] [place] Comment on above: Performed By: #### C KERRIE ####[facility] Hmojggpsxs9968 [place] [address]Dr. Charlee Pearson MONOM% 0.0 % Critically low 1.7-12.0 [facility] Comment on above: Performed By: #### C KERRIE ####[facility] Vkaqattuea6260 [place] [id number]. Charlee Pearson MPV 9.2 fL Critically low 9.5-13.5 [facility] Comment on above: Performed By: #### C BCMAN ####[facility] Fmejadcnsx7609 [place], [place] [address]Kr. Charlee Pearson MYELOCYTE # Normal [facility] Comment on above: Performed By: #### C BCMAN ####[facility] Zbvvrmzgax5963 [place], [place] [address]Xt. Charlee Pearson MYELOCYTE % Normal [facility] Comment on above: Performed By: #### C BCMAN ####[facility] Emzigogbss7304 [place] [id number]. Charlee Pearson NRBC Normal [facility] Comment on above: Performed By: #### C BCJARON ####[facility] Ywkvnwbncv6576 [place] [id number]. Charlee Pearson PLT 402 103/ul Normal 150-450 [facility] Comment on above: Performed By: #### C BCJARON ####[facility] Clkcruubda7412 [place] [id number]. Charlee Pearson RBC 3.55 106/ul Critically low 4.20-5.40 [facility] Comment on above: Performed By: #### C BCJARON ####[facility] Xehhmhjaxh8484 [place] [id number]. Charlee Pearson RDW 13.0 % Normal 11.0-15.0 [facility] Comment on above: Performed By: #### C BCJARON ####[facility] Awtpqzcqle0749 [place] [id number]. Charlee Pearson SEG # 21.15 103/ul Critically high 1.40-6.50 [facility] Comment on above: Performed By: #### C BCMAN ####[facility] Tjtmzunocq3463 [place] [id number]. Charlee Pearson SEG % 97.0 % Critically high 43.0-75.0 [facility] Comment on above: Performed By: #### C BCMAN ####[facility] Zcevyeknph8877 [place] [phone]. Charlee Pearson WBC 21.8 103/ul Critically high 4.0-11.0 [facility] Comment on above: Performed By: #### C BCMAN ####[facility] Noratzgyuq3395 [place] [address]Dr. Charlee eParson PROF 14(COMP METB)on 022 Albumin [Mass/Vol] 2.4 g/dL Critically low 3.4-5.[address] [facility] Comment on above: Performed By: #### C MP ####[facility] Joxoecievq8391 [place] [address]Dr. Charlee Pearson Albumin/Globulin [Mass ratio] 0.8 {ratio} Normal [facility] Comment on above: Performed By: #### C MP ####[facility] Kcosglsymx4045 [place] [address]Dr. Charlee Pearson ALP [Catalytic activity/Vol] 61 U/L Normal 46-116 [facility] Comment on above: Performed By: #### C MP ####[facility] Oondrzzvxi[address] [place], [place] [address]Dr. Charlee Pearson ALT [Catalytic activity/Vol] 85 U/L Critically high 14-59 [facility] Comment on above: Performed By: #### C MP ####[facility] Fyyusbhesm[address] [place], [place] [address]Dr. Charlee Pearson Anion gap [Moles/Vol] 8.2 mmol/L Normal [facility] Comment on above: Performed By: #### C MP ####[facility] Uzmguxhfsi[address] [place], [place] [address]Dr. Charlee Pearson AST [Catalytic activity/Vol] 21 U/L Normal 15-37 [facility] Comment on above: Performed By: #### C MP ####[facility] Fyadotlbrp[address] [place], [place] [address]Dr. Charlee Pearson Bilirubin [Mass/Vol] 0.5 mg/dL Normal 0.2-1.0 [facility] Comment on above: Performed By: #### C MP ####[facility] Grinenmbsa[address] [place], [place] [address]Dr. Charlee Pearson Calcium [Mass/Vol] 8.5 mg/dL Normal 8.5-10.1 [facility] Comment on above: Performed By: #### C MP ####[facility] Ltzprkugym3174 [place] [address]Dr. Charlee Pearson Chloride [Moles/Vol] 99 mmol/L Normal 98-107 [facility] Comment on above: Performed By: #### C MP ####[facility] Lkqnhwsjhe1848 [place] [address]Dr. Charlee Pearson CO2 [Moles/Vol] 32.7 mmol/L Critically high 21.0-32.0 [facility] Comment on above: Performed By: #### C MP ####[facility] Fftnhoradq0354 [place] [address]Dr. Charlee Pearson Creatinine [Mass/Vol] 0.52 mg/dL Critically low 0.55-1.02 [facility] Comment on above: Performed By: #### C MP ####[facility] Tdzkbxobol9767 [place] [address]Dr. Charlee Pearson EGFR-AF MICRONESIAN >60 Normal >=60 [facility] Comment on above: Performed By: #### C MP ####[facility] Curozdtxtf7774 [place] [address]Dr. Charlee Pearson EGFR-NON AF MICRONESIAN >60 Normal >=60 [facility] Comment on above: Performed By: #### C MP ####[facility] Xywiqrlhqj5817 [place] [address]Dr. Charlee Pearson Globulin (S) [Mass/Vol] 3.2 g/dL Normal [facility] Comment on above: Performed By: #### C MP ####[facility] Tswvamvnym2394 [place] [address]Dr. Charlee Pearson Glucose [Mass/Vol] 139 mg/dL Critically high 74-106 [facility] Comment on above: Performed By: #### C MP ####[facility] Tuokpzdlyc7251 [place] [address]Dr. Charlee Pearson Potassium [Moles/Vol] 3.9 mmol/L Normal 3.5-5.1 [facility] Comment on above: Performed By: #### C MP ####[facility] Xkhkryxjff[address] [place], [place] [address]Dr. Charlee Pearson Protein [Mass/Vol] 5.6 g/dL Critically low 6.4-8.[address] [facility] Comment on above: Performed By: #### C MP ####[facility] Smutejzzhn7[address] [place], [place] [address]Dr. Charlee Pearson Sodium [Moles/Vol] 136 mmol/L Normal 136-145 [facility] Comment on above: Performed By: #### C MP ####[facility] Cxzilgfhzs[address] [place], [place] [address]Dr. Charlee Pearson Urea nitrogen [Mass/Vol] 15.0 mg/dL Normal 7.0-18.0 [facility] Comment on above: Performed By: #### C MP ####[facility] Msqpwozeah174[address] [place], [place] [address]Dr. Charlee Pearson Urea nitrogen/Creatinine [Mass ratio] 28.8 mg/mg Normal [facility] Comment on above: Performed By: #### C MP ####[facility] Yblngrdxzj038[address] [place], [place] [address]Dr. Charlee Pearson UA (CLEAN/CATCH) REIMBURSEMENT COUNSELOR/MICRO I F IND.on 03-27-2022 Bilirubin Ql (U) Negative Normal NEGATIVE [facility] Comment on above: Performed By: #### U ACSIND ####[facility] Vppxkgeqbh29[address] [place], [place] [address]Dr. Charlee Pearson Clarity (U) CLEAR Normal CLEAR [facility] Comment on above: Performed By: #### U ACSIND ####[facility] Auehagesrz[address] [place], [place] [address]Dr. Charlee Pearson Color (U) LT. YELLOW Normal YELLOW [facility] Comment on above: Performed By: #### U ACSIND ####[facility] [address]mcaoaywmh[address] [place], [place] [address]Dr. Charlee Pearson Glucose Ql (U) Negative Normal NEGATIVE [facility] Comment on above: Performed By: #### U ACSIND ####[facility] Ytyooanawx249[address] [place], [place] [address]Dr. Charlee Pearson Hemoglobin Ql (U) Negative Normal NEGATIVE [facility] Comment on above: Performed By: #### U ACSIND ####[facility] Xshbraqquw8216 [place] [address]Dr. Charlee Pearson Ketones Ql (U) Negative Normal NEGATIVE [facility] Comment on above: Performed By: #### U ACSIND ####[facility] Cogvnseqvo9982 [place] [address]Dr. Charlee Pearson LEUKOCYTES Negative Normal NEGATIVE [facility] Comment on above: Performed By: #### U ACSIND ####[facility] Ticzxfrodn1975 [place] [address]Dr. Charlee Pearson Nitrite Ql (U) Negative Normal NEGATIVE [facility] Comment on above: Performed By: #### U ACSIND ####[facility] Jdfwfnjdlz2198 [place] [address]Dr. Charlee Pearson pH (U) 7.5 [pH] Normal 5-[address] [facility] Comment on above: Performed By: #### U ACSIND ####[facility] Jtghgbzlvm8948 [place] [address]Dr. Charlee Pearson SPEC GRAVITY 1.010 Normal 1.005-<=1.025 [facility] [place] Comment on above: Performed By: #### U ACSIND ####[facility] Srhknqzahc7288 [place] [address]Dr. Charlee Michel UA PROTEIN Negative Normal NEGATIVE/ TRACE [facility] Comment on above: Performed By: #### U ACSIND ####[facility] Dhybrnexgh5950 [place] [address]Dr. Charlee Michel UR MICRO IND NOT INDICATED Normal [facility] [place] Comment on above: Performed By: #### U ACSIND ####[facility] Rkdmkdcpwh6208 [place] [address]Dr. Charlee Michel Urobilinogen Qn (U) 0.2 {Tye'U}/dL Normal 0.2 - 1. [address] [facility] Comment on above: Performed By: #### U ACSIND ####[facility] Zaiofnllcq5116 [place] [address]Dr. Charlee Pearson XR CHEST 2 Von 03-27-2022 XR CHEST [address] [facility] CBC W MANUAL DIFFon 03-26-20 22 ATYPICAL LYMPH # Normal [facility] Comment on above: Performed By: #### C KERRIE ####[facility] Eoavsllssd4851 [place] [address]Dr. Charlee Pearson ATYPICAL LYMPH % Normal [facility] Comment on above: Performed By: #### C KERRIE ####[facility] Bdbpiobzdv8864 [place] [address]Dr. Claudettelan Pearson BAND # Normal 0.0-0.[address] [facility] Comment on above: Performed By: #### C KERRIE ####[facility] Lqkwnsjwjt3453 [place] [address]Dr. Yilan Pearson BAND % Normal 0-[address] [facility] Comment on above: Performed By: #### C KERRIE ####[facility] Vuesngsjdq[address] [place], [place] [address]Dr. Charlee Pearson BASOM # 0.00 103/ul Normal 0.00-0.[address] [facility] Comment on above: Performed By: #### C KERRIE ####[facility] [address] [place], [place] [address]Dr. Charlee Pearson BASOM % 0.0 % Critically low 0.2-2.0 [facility] Comment on above: Performed By: #### C KERRIE ####[facility] Iwounytoix[address] [place] [address]Dr. Yilan Pearson BLAST # Normal [facility] Comment on above: Performed By: #### C KERRIE ####[facility] Pgebqksksj1085 [place] [address]Dr. Claudettelan Pearson BLAST % Normal [facility] Comment on above: Performed By: #### C KERRIE ####[facility] Vikapjrofj28[address] [place] [address]Dr. Charlee Pearson CORRECTED WBC Normal 4.0-11.0 [facility] Comment on above: Performed By: #### C KERRIE ####[facility] Chdcsfsxzo6772 [place], [place] [address]Wc. Charlee Pearson EOS # 0.00 103/ul Normal 0.00-0.70 [facility] Comment on above: Performed By: #### C KERRIE ####[facility] Svymvbvunb1135 [place], [place] [address]Uc. Charlee Pearsno EOS% 0.0 % Critically low 0.9-7.0 [facility] Comment on above: Performed By: #### C KERRIE ####[facility] Hyschbklnn9308 [place] [id number]. Charlee Pearson HCT 36.8 % Normal 36.0-48.[address] [facility] Comment on above: Performed By: #### C KERRIE ####[facility] Slbzzvstnf0756 [place] [id number]. Charlee Pearson HGB 12.5 g/dl Normal 12.0-16.[address] [facility] Comment on above: Performed By: #### C KERRIE ####[facility] Aoeooqkorq4098 [place] [id number]. Charlee Pearson LYMPHM # 0.74 103/ul Critically low 1.20-3.80 [facility] [place] Comment on above: Performed By: #### C KERRIE ####[facility] Grvajyeraa7073 [place] [id number]. Charlee Pearson LYMPHM% 5.0 % Critically low 20.5-60.0 [facility] Comment on above: Performed By: #### C KERRIE ####[facility] Lxjybkrfnx7004 [place], [place] [address]Yk. Charlee Pearson MCH 31.2 pg Normal 26.7-34.[address] [facility] Comment on above: Performed By: #### C KERRIE ####[facility] Ysjicmeddw7661 [place] [id number]. Charlee Pearson MCHC 34.0 g/dl Normal 29.9-35.[address] [facility] Comment on above: Performed By: #### C KERRIE ####[facility] Jfqucjvlsg1095 [place] [id number]. Charlee Pearson MCV 91.8 fL Normal 81.0-99.[address] [facility] Comment on above: Performed By: #### C BCMAN ####[facility] Vmpaxuvcjg3972 [place] [id number]. Charlee Pearson METAMYELOCYTE # Normal [facility] [place] Comment on above: Performed By: #### C BCJARON ####[facility] Futqflebgo6546 [place] [id number]. Charlee Pearson METAMYELOCYTE % Normal [facility] [place] Comment on above: Performed By: #### C KERRIE ####[facility] Jimsipfjey[address] [place], [place] [address]Dr. Charlee Michel MONOM# 0.74 103/ul Normal 0.30-0.80 [facility] Comment on above: Performed By: #### C KERREI ####[facility] Foemeqxhsd[address] [place], [place] [address]Dr. Claudetteclaudette Pearson MONOM% 5.0 % Normal 1.7-12.0 [facility] Comment on above: Performed By: #### C KERRIE ####[facility] Jsoarbtzkf[address] [place], [place] [address]Dr. Claudetteclaudette Pearson MPV 9.1 fL Critically low 9.5-13.5 [facility] Comment on above: Performed By: #### C KERRIE ####[facility] Jkxzuqth[address] [place], [place] [address]Dr. Charlee Pearson MYELOCYTE # Normal [facility] Comment on above: Performed By: #### C KERRIE ####[facility] Ogfsvkjhas4913 [place] [id number]. Charlee Pearson MYELOCYTE % Normal [facility] Comment on above: Performed By: #### C KERRIE ####[facility] Rfnpimacsv[address] [place], [place] [address]Dr. Charlee Pearson NRBC Normal [facility] Comment on above: Performed By: #### C KERRIE ####[facility] Opkljtmauv[address] [place], [place] [address]Dr. Charlee Pearson PLT 463 103/ul Critically high 150-450 [facility] [place] Comment on above: Performed By: #### C KERRIE ####[facility] Vgeaztybyb9368 [place] [id number] Wilkinsclaudette Michel RBC 4.01 106/ul Critically low 4.20-5.40 [facility] Comment on above: Performed By: #### C KERRIE ####[facility] Yukjipsbyo6575 [place] [phone] Pearson RDW 13.1 % Normal 11.0-15.0 [facility] Comment on above: Performed By: #### C KERRIE ####[facility] Llovxzvqzf5705 [place] [address]DrOttoniel Pearson SEG # 13.41 103/ul Critically high 1.40-6.50 [facility] Comment on above: Performed By: #### C KERRIE ####[facility] Nvucawrqap7906 [place] [address]DrOttoniel Pearson SEG % 90.0 % Critically high 43.0-75.0 [facility] Comment on above: Performed By: #### C KERRIE ####[facility] Gwbrquyxtx3879 [place] [id number] Pearson TOXIC GRANULATION 2+ Normal [facility] Comment on above: Performed By: #### C KERRIE ####[facility] Zfujxqsibt5856 [place] [phone] Pearson WBC 14.9 103/ul Critically high 4.0-11.0 [facility] Comment on above: Performed By: #### C KERRIE ####[facility] Omqbdxghdx0291 [place] [phone]. Charlee Pearson PROF 14(COMP METB)on 022 Albumin [Mass/Vol] 2.4 g/dL Critically low 3.4-5.0 [facility] Comment on above: Performed By: #### C MP ####[facility] Iatmqizrdc9680 [place] [id number]. Charlee Pearson Albumin/Globulin [Mass ratio] 0.7 {ratio} Normal [facility] Comment on above: Performed By: #### C MP ####[facility] Zhutrvpuev7160 [place] [address]Dr. Charlee Pearson ALP [Catalytic activity/Vol] 74 U/L Normal 46-116 [facility] Comment on above: Performed By: #### C MP ####[facility] Swyyhifydz5844 [place] [address]Dr. Charlee Pearson ALT [Catalytic activity/Vol] 108 U/L Critically high 14-59 [facility] Comment on above: Performed By: #### C MP ####[facility] Obvqlurbob[address] [place], [place] [address]Dr. Charlee Pearson Anion gap [Moles/Vol] 8.8 mmol/L Normal [facility] Comment on above: Performed By: #### C MP ####[facility] Pamrhtvwtx[address] [place], [place] [address]Dr. Charlee Pearson AST [Catalytic activity/Vol] 26 U/L Normal 15-37 [facility] Comment on above: Performed By: #### C MP ####[facility] Bkzuvqfwlp8[address] [place], [place] [address]Dr. Charlee Pearson Bilirubin [Mass/Vol] 0.3 mg/dL Normal 0.2-1.0 [facility] Comment on above: Performed By: #### C MP ####[facility] Cvfkjilnht204[address] [place], [place] [address]Dr. Charlee Michel Calcium [Mass/Vol] 8.7 mg/dL Normal 8.5-10.1 [facility] Comment on above: Performed By: #### C MP ####[facility] Yqclgohese[address] [place], [place] [address]Dr. Claudetteclaudette Pearson Chloride [Moles/Vol] 97 mmol/L Critically low 98-107 [facility] Comment on above: Performed By: #### C MP ####[facility] Rufbybfzex12[address] [place], [place] [address]Dr. Charlee Pearson CO2 [Moles/Vol] 32.5 mmol/L Critically high 21.0-32.0 [facility] Comment on above: Performed By: #### C MP ####[facility] Rodvixfjhk1892 [place] [address]Dr. Charlee Pearson Creatinine [Mass/Vol] 0.55 mg/dL Normal 0.55-1.02 [facility] Comment on above: Performed By: #### C MP ####[facility] Lbduivkutc3554 [place] [address]Dr. Charlee Pearson EGFR-AF MICRONESIAN >60 Normal >=60 [facility] Comment on above: Performed By: #### C MP ####[facility] Dqpiqdwthp8693 [place] [address]Dr. Charlee Michel EGFR-NON AF MICRONESIAN >60 Normal >=60 [facility] Comment on above: Performed By: #### C MP ####[facility] Dhvuzdrozx[address] [place], [place] [address]Dr. Claudetteclaudette Pearson Globulin (S) [Mass/Vol] 3.4 g/dL Normal [facility] Comment on above: Performed By: #### C MP ####[facility] Petusdmvxi9[address] [place], [place] [address]Dr. Charlee Michel Glucose [Mass/Vol] 161 mg/dL Critically high 74-106 [facility] Comment on above: Performed By: #### C MP ####[facility] Rezxcizspp3711 [place] [address]Dr. Charlee Pearson Potassium [Moles/Vol] 3.3 mmol/L Critically low 3.5-5.1 [facility] Comment on above: Performed By: #### C MP ####[facility] Tdwefkvqxu3379 [place] [address]Dr. Claudetteclaudette Michel Protein [Mass/Vol] 5.8 g/dL Critically low 6.4-8.2 [facility] Comment on above: Performed By: #### C MP ####[facility] Kpiafprqih[address] [place], [place] [address]Dr. Charlee Pearson Sodium [Moles/Vol] 135 mmol/L Critically low 136-145 Th [facility] Comment on above: Performed By: #### C MP ####[facility] Quwqhiivlq2717 [place] [address]Dr. Charlee Michel Urea nitrogen [Mass/Vol] 15.0 mg/dL Normal 7.0-18.[address] [facility] Comment on above: Performed By: #### C MP ####[facility] Wiznesvfem6682 [place] [address]Dr. Charlee Michel Urea nitrogen/Creatinine [Mass ratio] 27.3 mg/mg Normal [facility] Comment on above: Performed By: #### C MP ####[facility] Oyyercycso[address] [place], [place] [address]Dr. Charlee Michel CBC W MANUAL DIFFon 03-25-20 22 ATYPICAL LYMPH # Normal [facility] Comment on above: Performed By: #### C BCMAN ####[facility] Gmoknjidud20[address] [place], [place] [address]Dr. Charlee Pearson ATYPICAL LYMPH % Normal [facility] Comment on above: Performed By: #### C BCMAN ####[facility] Ixofpzmzrq8[address] [place], [place] [address]Dr. Charlee Pearson BAND # Normal 0.0-0.[address] [facility] Comment on above: Performed By: #### C BCMAN ####[facility] Rsdncmukcl[address] [place], [place] [address]Dr. Claudetteclaudette Pearson BAND % Normal 0-[address] [facility] Comment on above: Performed By: #### C BCMAN ####[facility] Ibnyrzsowe[address] [place], [place] [address]Dr. Claudetteclaudette Michel BASOM # 0.00 103/ul Normal 0.00-0.[address] [facility] Comment on above: Performed By: #### C BCMAN ####[facility] Ocvqnqsemr[address] [place], [place] [address]Dr. Charlee Pearson BASOM % 0.0 % Critically low 0.2-2.0 [facility] Comment on above: Performed By: #### C BCMAN ####[facility] Mmxewfpujp[address] [place], [place] [address]Dr. Claudettelan Pearson BLAST # Normal [facility] Comment on above: Performed By: #### C KERRIE ####[facility] Rlxgfknruy1084 [place] [id number]. Charlee Pearson BLAST % Normal [facility] Comment on above: Performed By: #### C BCJARON ####[facility] Uhlgbtudir6355 [place] [id number]. Charlee Pearson CORRECTED WBC Normal 4.0-11.0 [facility] Comment on above: Performed By: #### C KERRIE ####[facility] Wpeivofilz1008 [place] [phone]. Charlee Pearson EOS # 0.00 103/ul Normal 0.00-0.[address] [facility] Comment on above: Performed By: #### C KERRIE ####[facility] Eylchlshwz1861 [place] [address]Dr. Charlee Pearson EOS% 0.0 % Critically low 0.9-7.0 [facility] Comment on above: Performed By: #### C KERRIE ####[facility] Rwxmvhtmfy[address] [place], [place] [address]Dr. Charlee Pearson HCT 39.7 % Normal 36.0-48.0 [facility] Comment on above: Performed By: #### C KERRIE ####[facility] Ylnvhqhjan50[address] [place], [place] [address]Dr. Charlee Pearson HGB 13.5 g/dl Normal 12.0-16.[address] [facility] Comment on above: Performed By: #### C KERRIE ####[facility] Ghqqqfynaw0435 [place] [address]Dr. Charlee Pearson LYMPHM # 1.22 103/ul Normal 1.20-3.[address] [facility] Comment on above: Performed By: #### C KERRIE ####[facility] Upbkpypzso1972 [place] [address]Dr. Charlee Pearson LYMPHM% 8.0 % Critically low 20.5-60.0 [facility] Comment on above: Performed By: #### C KERRIE ####[facility] Fydqvwixwy9971 [place] [id number]. Charlee Pearson MCH 31.2 pg Normal 26.7-34.[address] [facility] Comment on above: Performed By: #### C KERRIE ####[facility] Xcyiguholc0578 [place] [id number]. Charlee Pearson MCHC 34.0 g/dl Normal 29.9-35.[address] [facility] Comment on above: Performed By: #### C KERRIE ####[facility] Xtnizwmbby7578 [place] [id number]. Charlee Pearson MCV 91.7 fL Normal 81.0-99.[address] [facility] Comment on above: Performed By: #### C KERRIE ####[facility] Stxbaxmirx[address] [place], [place] [address]Dr. Charlee Pearson METAMYELOCYTE # Normal [facility] [place] Comment on above: Performed By: #### C KERRIE ####[facility] Ilzpgkuyry4925 [place] [address]Dr. Charlee Pearson METAMYELOCYTE % Normal [facility] [place] Comment on above: Performed By: #### C KERRIE ####[facility] Ipywpfiqsf[address] [place], [place] [address]Dr. Charlee Pearson MONOM# 1.06 103/ul Critically high 0.30-0.80 [facility] Comment on above: Performed By: #### C KERRIE ####[facility] Brdbvollad[address] [place], [place] [address]Dr. Charlee Pearson MONOM% 7.0 % Normal 1.7-12.[address] [facility] Comment on above: Performed By: #### C KERRIE ####[facility] Nflxwyecqm1022 [place] [address]Dr. Charlee Pearson MPV 10.3 fL Normal 9.5-13.[address] [facility] Comment on above: Performed By: #### C KERRIE ####[facility] Gyfjoovnlt154[address] [place], [place] [address]Dr. Charlee Pearson MYELOCYTE # Normal [facility] Comment on above: Performed By: #### C KERRIE ####[facility] Rxzgzttnfm3083 [place], [place] [address]Ka. Charlee Pearson MYELOCYTE % Normal [facility] Comment on above: Performed By: #### C BCMAN ####[facility] Gzqwwfxpzm7473 [place], [place] [address]Gn. Charlee Pearson NRBC Normal [facility] Comment on above: Performed By: #### C KERRIE ####[facility] Dupkjrqbqk7154 [place], [place] [address]Fi. Charlee Pearson PLT 445 103/ul Normal 150-[address] [facility] Comment on above: Performed By: #### C KERRIE ####[facility] Yjnngahknc5222 [place], [place] [address]Mq. Charlee Pearson RBC 4.33 106/ul Normal 4.20-5.[address] [facility] Comment on above: Performed By: #### C KERRIE ####[facility] Qmbfprzykn1291 [place] [id number]. Charlee Pearson RDW 13.1 % Normal 11.0-15.0 [facility] Comment on above: Performed By: #### C KERRIE ####[facility] Ncabgvwoyz7494 [place] [phone]. Charlee Pearson SEG # 12.92 103/ul Critically high 1.40-6.50 [facility] Comment on above: Performed By: #### C KERRIE ####[facility] Tlwbmlonrc3871 [place] [phone]. Charlee Pearson SEG % 85.0 % Critically high 43.0-75.0 [facility] [place] Comment on above: Performed By: #### C KERRIE ####[facility] Slwjhdiyqe5875 [place], [place] [address]Du. Charlee Pearson WBC 15.2 103/ul Critically high 4.0-11.0 [facility] Comment on above: Performed By: #### C KERRIE ####[facility] Dhnfvlxsme7599 [place], [place] [address]Gr. Charlee Pearson FREE T3on 03-25-2022 FREE T3 0.74 pg/mlL Critically low 2.18-3.98 [facility] Comment on above: Performed By: #### T SH, FT3 ####[facility] Livzxuyznd7410 [place] [address]Dr. Charlee Michel FREE T4on 03-25-2022 Free T4 [Mass/Vol] 1.27 ng/dL Normal 0.76-1.46 [facility] Comment on above: Performed By: #### F T4 ####[facility] Nrauulacwl[address] [place], [place] [address]Dr. Charlee Pearson LIVER PROFILEon 03-25-2022 Albumin [Mass/Vol] 2.8 g/dL Critically low 3.4-5.0 [facility] Comment on above: Performed By: #### L IVER ####[facility] Kpcvmovcuc8072 [place] [address]Dr. Charlee Pearson Albumin/Globulin [Mass ratio] 0.7 {ratio} Normal [facility] Comment on above: Performed By: #### L IVER ####[facility] Smlglctjer[address] [place], [place] [address]Dr. Charlee Pearson ALP [Catalytic activity/Vol] 89 U/L Normal 46-116 [facility] Comment on above: Performed By: #### L IVER ####[facility] Ugarmovrlm7[address] [place], [place] [address]Dr. Charlee Pearson ALT [Catalytic activity/Vol] 158 U/L Critically high 14-59 [facility] Comment on above: Performed By: #### L IVER ####[facility] Szbyjiwerk69[address] [place], [place] [address]Dr. Charlee Pearson AST [Catalytic activity/Vol] 55 U/L Critically high 15-37 [facility] Comment on above: Performed By: #### L IVER ####[facility] Uyyezipzlb19[address] [place], [place] [address]Dr. Charlee Pearson BILI, CONJUGATED 0.1 mg/dL Normal 0.0-0.2 [facility] Comment on above: Performed By: #### L IVER ####[facility] Cggjaxfuzf[address] [place], [place] [address]Dr. Charlee Pearson Bilirubin [Mass/Vol] 0.3 mg/dL Normal 0.2-1.0 [facility] Comment on above: Performed By: #### L IVER ####[facility] Znsgtogqoy7359 [place] [address]Dr. Charlee Pearson Globulin (S) [Mass/Vol] 4.0 g/dL Normal [facility] Comment on above: Performed By: #### L IVER ####[facility] Qaudctozkv074[address] [place], [place] [address]Dr. Charlee Pearson Protein [Mass/Vol] 6.8 g/dL Normal 6.4-8.2 [facility] Comment on above: Performed By: #### L IVER ####[facility] Twcesrulfx[address] [place], [place] [address]Dr. Charlee Pearson LOWER RESPIRATORY CULTUREon 03-25-2022 Lower Respiratory Culture Final report Normal [facility] Comment on above: Performed By: #### C XLORES ####[facility] Alurvbwuyj8[address] [place], [place] [address]Dr. Charlee Pearson Result 1 Comment Normal [facility] Comment on above: Result Comment: No g rowth in 36 - 48 hours. Performed By: #### C XLORES ####[facility] Djrvkdbisg[address] [place], [place] [address]Dr. Charlee Pearson Result Comment: Rout ine respiratory aneesh PROF CHEM 8 (BAS METB)on Anion gap [Moles/Vol] 10.9 mmol/L Normal [facility] Comment on above: Performed By: #### B MP ####[facility] Bjqtnbnyjy[address] [place], [place] [address]Dr. Charlee Pearson Calcium [Mass/Vol] 9.5 mg/dL Normal 8.5-10.1 [facility] Comment on above: Performed By: #### B MP ####[facility] Ksfstdvjij9348 [place] [address]Dr. Charlee Pearson Chloride [Moles/Vol] 97 mmol/L Critically low 98-107 [facility] Comment on above: Performed By: #### B MP ####[facility] Ytlajmmvft6191 [place] [address]Dr. Charlee Pearson CO2 [Moles/Vol] 32.6 mmol/L Critically high 21.0-32.0 [facility] Comment on above: Performed By: #### B MP ####[facility] Ijocmxdwum6915 [place] [address]Dr. Charlee Pearson Creatinine [Mass/Vol] 0.56 mg/dL Normal 0.55-1.02 [facility] Comment on above: Performed By: #### B MP ####[facility] Bdaovkfoew8243 [place] [address]Dr. Charlee Pearson EGFR-AF MICRONESIAN >60 Normal >=60 [facility] Comment on above: Performed By: #### B MP ####[facility] Oqunumrhnv[address] [place], [place] [address]Dr. Claudetteclaudette Pearson EGFR-NON AF MICRONESIAN >60 Normal >=60 [facility] Comment on above: Performed By: #### B MP ####[facility] Hmkmefuwrt[address] [place], [place] [address]Dr. Charlee Pearson Glucose [Mass/Vol] 154 mg/dL Critically high 74-106 [facility] Comment on above: Performed By: #### B MP ####[facility] Fwxzqtkram[address] [place], [place] [address]Dr. Charlee Pearson Potassium [Moles/Vol] 3.5 mmol/L Normal 3.5-5.1 [facility] Comment on above: Performed By: #### B MP ####[facility] Varywngqiv342[address] [place], [place] [address]Dr. Charlee Pearson Sodium [Moles/Vol] 137 mmol/L Normal 136-145 [facility] Comment on above: Performed By: #### B MP ####[facility] Juqmpixqlr[address] [place], [place] [address]Dr. Charlee Pearson Urea nitrogen [Mass/Vol] 13.0 mg/dL Normal 7.0-18.0 [facility] Comment on above: Performed By: #### B MP ####[facility] Udhgkcjjiu2824 [place] [address]Dr. Charlee Pearson Urea nitrogen/Creatinine [Mass ratio] 23.2 mg/mg Normal [facility] Comment on above: Performed By: #### B MP ####[facility] Pvweoiepad[address] [place], [place] [address]Dr. Charlee Michel TSHon 03-25-2022 TSH 0.026 uIU/mL Critically low 0.358-3.740 [facility] Comment on above: Performed By: #### T SH, FT3 ####[facility] Jjbgmuexwh[address] [place], [place] [address]Dr. Charlee Michel VITAMIN D 25 OHon 03-25-2022 VIT D 25-OH 62.5 ng/mL Normal [facility] Comment on above: Performed By: #### V ITAD ####[facility] [address]hzmslqsp[address] [place], [place] [address]Dr. Charlee Pearson VIT D RANGES SEE BELOW Normal [facility] Comment on above: Result Comment: <20 ng/mL Vit D deficient 20 - <30 ng/mL Vit D insufficient 30 - 100 ng/mL Vit D sufficient >100 ng/mL Potential Toxicity Performed By: #### V ITAD ####[facility] Nvrofyiaax[address] [place], [place] [address]Dr. Claudetteclaudette Michel XR CHEST 2 Von 03-25-2022 XR CHEST [address] [facility] CBC W MANUAL DIFFon 03-24-20 22 ATYPICAL LYMPH # Normal [facility] Comment on above: Performed By: #### C BCJARON ####[facility] Btwsmmgsth3196 [place] [address]Dr. Charlee Pearson ATYPICAL LYMPH % Normal [facility] Comment on above: Performed By: #### C BCJARON ####[facility] Msernonqsq210[address] [place], [place] [address]Dr. Charlee Pearson BAND # 0.5 103/ul Critically high 0.0-0.3 [facility] [place] Comment on above: Performed By: #### C KERRIE ####[facility] Zkszjrzsvz[address] [place], [place] [address]Dr. Charlee Pearson BAND % 4 % Normal 0-[address] [facility] Comment on above: Performed By: #### C BCMAN ####[facility] Bqleliwmtv5211 [place] [id number]. Charlee Pearson BASOM # 0.00 103/ul Normal 0.00-0.[address] [facility] Comment on above: Performed By: #### C BCMAN ####[facility] Ieibnmvivi1203 [place] [id number]. Charlee Pearson BASOM % 0.0 % Critically low 0.2-2.0 [facility] Comment on above: Performed By: #### C BCMAN ####[facility] Rxdpmlbpke0396 [place] [address]Dr. Charlee Pearson BLAST # Normal [facility] Comment on above: Performed By: #### C BCJARON ####[facility] Tpmhthfzsw4935 [place] [address]Dr. Charlee Pearson BLAST % Normal [facility] Comment on above: Performed By: #### C BCJARON ####[facility] Cmkkcndexe5975 [place] [address]Dr. Charlee Pearson CORRECTED WBC Normal 4.0-11.0 [facility] Comment on above: Performed By: #### C BCJARON ####[facility] Cqakvgpdxl0[address] [place] [address]Dr. Charlee Pearson EOS # 0.00 103/ul Normal 0.00-0.[address] [facility] Comment on above: Performed By: #### C BCJARON ####[facility] Ktwotuvqbd4236 [place] [address]Dr. Charlee Pearson EOS% 0.0 % Critically low 0.9-7.0 [facility] Comment on above: Performed By: #### C BCMAN ####[facility] I[address]ysldgjv[address] [place], [place] [address]Dr. Charlee Pearson HCT 34.3 % Critically low 36.0-48.0 [facility] Comment on above: Performed By: #### C BCJARON ####[facility] Wdnojeqzpl[address] [place], [place] [address]Dr. Charlee Pearson HGB 11.4 g/dl Critically low 12.0-16.0 [facility] Comment on above: Performed By: #### Jenny SY ####[facility] Lkpgjwyblw8434 [place] [id number]. Charlee Pearson LYMPHM # 0.76 103/ul Critically low 1.20-3.80 [facility] [place] Comment on above: Performed By: #### C KERRIE ####[facility] Ectasakuhs0942 [place] [id number]. Charlee Pearson LYMPHM% 6.0 % Critically low 20.5-60.0 [facility] Comment on above: Performed By: #### Jenny SY ####[facility] Icyuusvtfa3353 [place] [address]Dr. Charlee Pearson MCH 30.8 pg Normal 26.7-34.0 [facility] Comment on above: Performed By: #### Jenny SY ####[facility] Prkzhhfpku5632 [place] [address]Dr. Charlee Pearson MCHC 33.2 g/dl Normal 29.9-35.[address] [facility] Comment on above: Performed By: #### Jenny SY ####[facility] Ehqpmqigmx4[address] [place] [address]Dr. Charlee Pearson MCV 92.7 fL Normal 81.0-99.[address] [facility] Comment on above: Performed By: #### Jenny SY ####[facility] Cigcciqyuw0691 [place] [address]Dr. Charlee Pearson METAMYELOCYTE # Normal [facility] [place] Comment on above: Performed By: #### Jenny SY ####[facility] Insnuwbyms6883 [place] [id number]. Charlee Pearson METAMYELOCYTE % Normal [facility] [place] Comment on above: Performed By: #### C KERRIE ####[facility] Btitvjcupi8014 [place] [id number]. Charlee Pearson MONOM# 0.64 103/ul Normal 0.30-0.[address] [facility] Comment on above: Performed By: #### C KERRIE ####[facility] Nyxykfwvmg8596 [place], [place] [address]Jf. Charlee Pearson MONOM% 5.0 % Normal 1.7-12.0 [facility] Comment on above: Performed By: #### C KERRIE ####[facility] Aebzhpgjiq5896 [place], [place] [address]Rn. Charlee Pearson MPV 9.4 fL Critically low 9.5-13.5 [facility] Comment on above: Performed By: #### C KERRIE ####[facility] Xvmjlweztc1939 [place], [place] [address]Co. Charlee Pearson MYELOCYTE # Normal [facility] Comment on above: Performed By: #### C KERRIE ####[facility] Mhjqvkwowa6940 [place], [place] [address]Mq. Charlee Pearson MYELOCYTE % Normal [facility] Comment on above: Performed By: #### C KERRIE ####[facility] Oljjfnyhwr4757 [place] [id number]. Charlee Pearson NRBC Normal [facility] Comment on above: Performed By: #### C KERRIE ####[facility] Eofaorkogz7711 [place] [id number]. Charlee Pearson PLT 376 103/ul Normal 150-[address] [facility] Comment on above: Performed By: #### C KERRIE ####[facility] Iftdgojbsa7263 [place] [id number]. Charlee Pearson RBC 3.70 106/ul Critically low 4.20-5.40 [facility] Comment on above: Performed By: #### C KERRIE ####[facility] Ussfnqhwdq0491 [place] [id number]. Charlee Pearson RDW 13.2 % Normal 11.0-15.[address] [facility] Comment on above: Performed By: #### C KERRIE ####[facility] Tlaelihatt2362 [place] [id number]. Claudetteclaudette Pearson SEG # 10.79 103/ul Critically high 1.40-6.50 [facility] Comment on above: Performed By: #### C BCMAN ####[facility] Aegdjyyhqc6532 [place] [id number]. Charlee Pearson SEG % 85.0 % Critically high 43.0-75.0 [facility] [place] Comment on above: Performed By: #### C BCMAN ####[facility] Giwkwfuqcf5308 [place] [id number]. Charlee Pearson WBC 12.7 103/ul Critically high 4.0-11.0 [facility] Comment on above: Performed By: #### C BCMAN ####[facility] Uliilmvdol0211 [place] [id number]. Charlee Pearson PROF CHEM 8 (BAS METB)on Anion gap [Moles/Vol] 7.5 mmol/L Normal [facility] Comment on above: Performed By: #### B MP ####[facility] Ekekxkizdt2379 [place] [address]Dr. Charlee Pearson Calcium [Mass/Vol] 9.0 mg/dL Normal 8.5-10.1 [facility] Comment on above: Performed By: #### B MP ####[facility] Vhamocqlkq6664 [place] [address]Dr. Charlee Pearson Chloride [Moles/Vol] 100 mmol/L Normal 98-[address] [facility] Comment on above: Performed By: #### B MP ####[facility] Qjifuazrrs7066 [place] [address]Dr. Charlee Pearson CO2 [Moles/Vol] 32.3 mmol/L Critically high 21.0-32.[address] [facility] Comment on above: Performed By: #### B MP ####[facility] Oqzngugnij9036 [place] [address]Dr. Charlee Pearson Creatinine [Mass/Vol] 0.50 mg/dL Critically low 0.55-1.[address] [facility] Comment on above: Performed By: #### B MP ####[facility] Nsdhixxmmi4263 [place] [address]Dr. Charlee Pearson EGFR-AF MICRONESIAN >60 Normal >=60 [facility] Comment on above: Performed By: #### B MP ####[facility] Qxhuynhpti9739 [place] [id number]. Charlee Pearson EGFR-NON AF MICRONESIAN >60 Normal >=60 [facility] Comment on above: Performed By: #### B MP ####[facility] Lryugvzwxg9393 [place] [id number]. Charlee Pearson Glucose [Mass/Vol] 147 mg/dL Critically high 74-106 [facility] Comment on above: Performed By: #### B MP ####[facility] Zkwhejmraq0634 [place] [phone]. Charlee Pearson Potassium [Moles/Vol] 3.8 mmol/L Normal 3.5-5.1 [facility] Comment on above: Performed By: #### B MP ####[facility] Xxsxvlarey9017 [place] [address]Dr. Charlee Pearson Sodium [Moles/Vol] 136 mmol/L Normal 136-145 [facility] Comment on above: Performed By: #### B MP ####[facility] Xbvrhgalxe8238 [place] [phone]. Charlee Pearson Urea nitrogen [Mass/Vol] 13.0 mg/dL Normal 7.0-18.0 [facility] Comment on above: Performed By: #### B MP ####[facility] Vrtiapcwbn4181 [place] [address]Dr. Charlee Pearson Urea nitrogen/Creatinine [Mass ratio] 26.0 mg/mg Normal [facility] Comment on above: Performed By: #### B MP ####[facility] Aeauewcejr1656 [place] [id number]. Charlee Pearson CBC AUTO DIFFon 03-23-2022 BASO # 0.1 103/ul Normal 0.0-0.1 [facility] Comment on above: Performed By: #### C BC ####[facility] Fvwxzxmrfb2776 [place] [phone]. Charlee Pearson Basophils/100 WBC (Bld) 0.3 % Normal 0.2-2.0 [facility] Comment on above: Performed By: #### C BC ####[facility] Kigspdpamg4138 [place] [address]Dr. Charlee Pearson EO # 0.0 103/ul Normal 0.0-0.7 [facility] Comment on above: Performed By: #### C BC ####[facility] Xvyvlrvrpb7656 [place] [address]Dr. Charlee Michel Eosinophils/100 WBC (Bld) 0.0 % Critically low 0.9-7.0 [facility] Comment on above: Performed By: #### C BC ####[facility] Ijzktiujpb5593 [place] [address]Dr. Charlee Michel Erythrocyte distribution width (RBC) [Ratio] 13.2 % Normal 11.0-15.0 [facility] Comment on above: Performed By: #### C BC ####[facility] [address] [place], [place] [address]DrOttoniel Wilkinsclaudette Pearson Hematocrit (Bld) [Volume fraction] 33.6 % Critically low 36.0-48.0 [facility] Comment on above: Performed By: #### C BC ####[facility] Yavzawpfrq[address] [place], [place] [address]DrOttoniel Charlee Pearson Hemoglobin (Bld) [Mass/Vol] 11.6 g/dL Critically low 12.0-16.0 [facility] Comment on above: Performed By: #### C BC ####[facility] Mmdnczkotn1017 [place] [address]DrOttoniel Wilkinsclaudette Pearson IG # 0.79 10e3/ul Critically high 0.00-0.03 [facility] Comment on above: Performed By: #### C BC ####[facility] Njkmjwbawy7145 [place] [address]Dr. Charlee Pearson IG % 3.4 % Critically high 0.0-0.5 [facility] Comment on above: Performed By: #### C BC ####[facility] Brcvlxwlpv[address] [place], [place] [address]DrOttoniel Pearson LYMPH # 0.7 103/ul Critically low 1.2-3.8 [facility] Comment on above: Performed By: #### C BC ####[facility] Pvmhltabiz4919 [place] [address]DrOttoniel Pearson Lymphocytes/100 WBC (Bld) 3.0 % Critically low 20.5-60.0 [facility] Comment on above: Performed By: #### C BC ####[facility] Xqjyeqxqij1923 [place] [address]DrOttoniel Pearson MANUAL DIFF REQ NO Normal [facility] Comment on above: Performed By: #### C BC ####[facility] Wvpfbzafto7291 [place] [address]Dr. Charlee Pearson MCH (RBC) [Entitic mass] 31.4 pg Normal 26.7-34.0 [facility] Comment on above: Performed By: #### C BC ####[facility] Hkiiqajwgi[address] [place], [place] [address]Dr. Charlee Pearson MCHC (RBC) [Mass/Vol] 34.5 g/dL Normal 29.9-35.2 [facility] Comment on above: Performed By: #### C BC ####[facility] Auhlggwisz[address] [place], [place] [address]DrOttoniel Pearson MCV (RBC) [Entitic vol] 91.1 fL Normal 81.0-99.0 [facility] Comment on above: Performed By: #### C BC ####[facility] Lwcupurzjv[address] [place], [place] [address]DrOttoniel Pearson MONO # 0.9 103/ul Critically high 0.3-0.8 [facility] Comment on above: Performed By: #### C BC ####[facility] Ssrwofsalf[address] [place], [place] [address]DrOttoniel Pearson Monocytes/100 WBC (Bld) 4.0 % Normal 1.7-12.0 [facility] Comment on above: Performed By: #### C BC ####[facility] Rwvxbcyyvg7[address] [place], [place] [address]DrOttoniel Pearson NEUT # 20.9 103/ul Critically high 1.4-6.5 [facility] Comment on above: Performed By: #### C BC ####[facility] Ykwwttlkfl7993 [place] [address]Dr. Charlee Pearson Neutrophils/100 WBC (Bld) 89.3 % Critically high 43.0-75.[address] [facility] Comment on above: Performed By: #### C BC ####[facility] Mgriumlqjt0409 [place] [address]Dr. Charlee Pearson Platelet mean volume (Bld) [Entitic vol] 9.5 fL Normal 9.5-13.[address] [facility] Comment on above: Performed By: #### C BC ####[facility] Ddszxuwaxb2221 [place] [address]Dr. Charlee Pearson PLT 337 103/ul Normal 150-[address] [facility] Comment on above: Performed By: #### C BC ####[facility] Dqkwcokxae6113 [place] [address]Dr. Charlee Pearson RBC 3.69 106/ul Critically low 4.20-5.40 [facility] [place] Comment on above: Performed By: #### C BC ####[facility] Nioknotjjw8630 [place] [address]Dr. Charlee Pearson WBC 23.4 103/ul Critically high 4.0-11.0 [facility] Comment on above: Performed By: #### C BC ####[facility] Znbieffyqs[address] [place], [place] [address]Dr. Charlee Michel ECHOCARDIO M/2D COMPLETEon 0 03-23-2022 ECHOCARDIO M/2D COMPLETE Normal [facility] MAGNESIUMon 03-23-2022 Magnesium [Mass/Vol] 1.9 mg/dL Normal 1.8-2.[address] [facility] Comment on above: Performed By: #### M G ####[facility] Qdefciqbvc3476 [place] [address]DrOttoniel Charlee Michel PROF CHEM 8 (BAS METB)on Anion gap [Moles/Vol] 11.1 mmol/L Normal [facility] Comment on above: Performed By: #### B MP ####[facility] Kebpjgzvbc2799 [place] [address]Dr. Charlee Pearson Calcium [Mass/Vol] 8.9 mg/dL Normal 8.5-10.1 [facility] Comment on above: Performed By: #### B MP ####[facility] Dkonfavshl1453 [place] [address]Dr. Charlee Pearson Chloride [Moles/Vol] 97 mmol/L Critically low 98-107 [facility] Comment on above: Performed By: #### B MP ####[facility] Bglcwtnboo4939 [place] [address]Dr. Charlee Pearson CO2 [Moles/Vol] 31.1 mmol/L Normal 21.0-32.0 [facility] Comment on above: Performed By: #### B MP ####[facility] Caqopwxfxy[address] [place], [place] [address]Dr. Charlee Pearson Creatinine [Mass/Vol] 0.55 mg/dL Normal 0.55-1.02 [facility] Comment on above: Performed By: #### B MP ####[facility] Kyuaqaajvn[address] [place], [place] [address]Dr. Charlee Pearson EGFR-AF MICRONESIAN >60 Normal >=60 [facility] Comment on above: Performed By: #### B MP ####[facility] Vngwmqjxpv0552 [place] [address]Dr. Charlee Pearson EGFR-NON AF MICRONESIAN >60 Normal >=60 [facility] Comment on above: Performed By: #### B MP ####[facility] Ygsmjqllpl4108 [place] [address]Dr. Charlee Pearson Glucose [Mass/Vol] 134 mg/dL Critically high 74-106 [facility] Comment on above: Performed By: #### B MP ####[facility] Rlbnoykymu7329 [place] [address]Dr. Charlee Pearson Potassium [Moles/Vol] 3.2 mmol/L Critically low 3.5-5.1 [facility] Comment on above: Performed By: #### B MP ####[facility] Sfedxhdigg4016 [place] [id number]. Charlee Pearson Sodium [Moles/Vol] 136 mmol/L Normal 136-145 [facility] Comment on above: Performed By: #### B MP ####[facility] Bwdjosulqa7704 [place] [id number]. Charlee Pearson Urea nitrogen [Mass/Vol] 10.0 mg/dL Normal 7.0-18.0 [facility] Comment on above: Performed By: #### B MP ####[facility] Ohaskbjkzl1958 [place] [id number]. Charlee Pearson Urea nitrogen/Creatinine [Mass ratio] 18.2 mg/mg Normal [facility] Comment on above: Performed By: #### B MP ####[facility] Hgbhmezdhj6634 [place] [address]Dr. Claudetteclaudette Pearson Anion gap [Moles/Vol] 4.6 mmol/L Normal [facility] Comment on above: Performed By: #### B MP ####[facility] Aiwldnlafk5707 [place] [id number]. Charlee Pearson Calcium [Mass/Vol] 8.9 mg/dL Normal 8.5-10.1 [facility] Comment on above: Performed By: #### B MP ####[facility] Gihtrjlrpg3299 [place] [phone]. Charlee Pearson Chloride [Moles/Vol] 99 mmol/L Normal 98-[address] [facility] Comment on above: Performed By: #### B MP ####[facility] [address]mwxuxvkwg[address] [place], [place] [address]Dr. Charlee Pearson CO2 [Moles/Vol] 33.2 mmol/L Critically high 21.0-32.[address] [facility] Comment on above: Performed By: #### B MP ####[facility] Yszyqaqmbx4476 [place] [address]Dr. Charlee Pearson Creatinine [Mass/Vol] 0.46 mg/dL Critically low 0.55-1.02 [facility] Comment on above: Performed By: #### B MP ####[facility] Nqtfaxyjjr0414 [place] [id number]. Charlee Pearson EGFR-AF MICRONESIAN >60 Normal >=60 [facility] Comment on above: Performed By: #### B MP ####[facility] Cutsxsgrno1149 [place] [address]Dr. Charlee Pearson EGFR-NON AF MICRONESIAN >60 Normal >=60 [facility] Comment on above: Performed By: #### B MP ####[facility] Vgdufwhcso9960 [place] [address]Dr. Charlee Pearson Glucose [Mass/Vol] 154 mg/dL Critically high 74-106 [facility] Comment on above: Performed By: #### B MP ####[facility] Ietkfkrovt5851 [place] [address]Dr. Claudetteclaudette Pearson Potassium [Moles/Vol] 2.8 mmol/L Critically low 3.5-5.1 [facility] Comment on above: Result Comment: repe ated Performed By: #### B MP ####[facility] Nclwenvcau[address] [place], [place] [address]Dr. Charlee Pearson Sodium [Moles/Vol] 136 mmol/L Normal 136-145 [facility] Comment on above: Performed By: #### B MP ####[facility] Mfjqefqdbx[address] [place], [place] [address]Dr. Claudetteclaudette Pearson Urea nitrogen [Mass/Vol] 10.0 mg/dL Normal 7.0-18.0 [facility] Comment on above: Performed By: #### B MP ####[facility] Vrljbmwnyl9353 [place] [address]Dr. Charlee Pearson Urea nitrogen/Creatinine [Mass ratio] 21.7 mg/mg Normal [facility] Comment on above: Performed By: #### B MP ####[facility] Aiboklcgdj294[address] [place], [place] [address]Dr. Claudetteclaudette Michel BLOOD GASES BTYon 03-22-2022 02 MODE BIPAP Normal [facility] Comment on above: Performed By: #### A BG ####[facility] Owwsrxsczp[address] [place], [place] [address]Dr. Charlee Pearson ALLENS TEST Positive Normal [facility] Comment on above: Performed By: #### A BG ####[facility] Fozjddlikl8039 [place] [address]Dr. Charlee Pearson Base excess Calc (Bld) [Moles/Vol] 9.7 mmol/L Critically high -2.0-2.[address] [facility] Comment on above: Performed By: #### A BG ####[facility] Kjlxdzdojm[address] [place], [place] [address]Dr. Charlee Pearson BIPAP PRESSURE 14/8 Normal [facility] Comment on above: Performed By: #### A BG ####[facility] Yexcrwamfl14[address] [place], [place] [address]Dr. Charlee Pearson CO2 [Moles/Vol] 68.7 mmol/L Critically high 23.0-28.0 [facility] Comment on above: Performed By: #### A BG ####[facility] Xlxjhanjwi[address] [place], [place] [address]Dr. Charlee Pearson CPAP Normal [facility] Comment on above: Performed By: #### A BG ####[facility] Rvkpbatksy8[address] [place], [place] [address]Dr. Charlee Pearson FIO2 50.00 % Normal [facility] Comment on above: Performed By: #### A BG ####[facility] Lpxtvqxtfy[address] [place], [place] [address]Dr. Charlee Pearson HCO3 (Bld) [Moles/Vol] 32.1 mmol/L Critically high 22.0-[address] [facility] Comment on above: Performed By: #### A BG ####[facility] Dbenenbaxc[address] [place], [place] [address]Dr. Charlee Pearson LPM Normal [facility] Comment on above: Performed By: #### A BG ####[facility] Vpxnvrscee[address] [place], [place] [address]Dr. Charlee Pearson MINUTE VOLUME Normal [facility] [place] [facility] Comment on above: Performed By: #### A BG ####[facility] Ftdpcfatbs8156 [place] [address]Dr. Charlee Pearson Oxygen (Bld) [Partial pressure] 71.8 mm[Hg] Critically low 80.0-100.[address] [facility] Comment on above: Performed By: #### A BG ####[facility] Udtmdclshk[address] [place], [place] [address]Dr. Charlee Pearson Oxygen saturation in Blood 95.3 % Normal 95.0-100.0 [facility] Comment on above: Performed By: #### A BG ####[facility] Fffducxqqz[address] [place], [place] [address]Dr. Charlee Pearson PCO2 49.0 mmHg Critically high 35.0-45.0 [facility] [place] Comment on above: Performed By: #### A BG ####[facility] Eogoemgart[address] [place], [place] [address]Dr. Charlee Pearson PEEP [facility] Comment on above: Performed By: #### A BG ####[facility] Hzzzvsfmil84[address] [place], [place] [address]Dr. Charlee Pearson pH (Bld) 7.447 [pH] Normal 7.350-7.450 [facility] Comment on above: Performed By: #### A BG ####[facility] Gwgfdxunga[address] [place], [place] [address]Dr. Charlee Pearson PIP [facility] Comment on above: Performed By: #### A BG ####[facility] Lytbdgdztp[address] [place], [place] [address]Dr. Charlee Pearson PS Normal [facility] Comment on above: Performed By: #### A BG ####[facility] Lzznrqnkhc[address] [place], [place] [address]Dr. Charlee Pearson PUNCTURE SITE RR Normal [facility] [place] [facility] Comment on above: Performed By: #### A BG ####[facility] Gtwaszezkc[address] [place], [place] [address]Dr. Charlee Pearson RATE Normal [facility] Comment on above: Performed By: #### A BG ####[facility] Kniysngxsu67[address] [place], [place] [address]Dr. Yilan Pearson VENT MODE Normal [facility] Comment on above: Performed By: #### A BG ####[facility] Eicuolstth5082 [place] [address]Dr. Charlee Pearson VT Normal [facility] Comment on above: Performed By: #### A BG ####[facility] Ttsuvefvhq4804 [place] [address]Dr. Charlee Pearson 02 MODE NASAL CANNULA Normal [facility] [place] [facility] Comment on above: Performed By: #### A BG ####[facility] Jlxuumltif[address] [place], [place] [address]Dr. Charlee Pearson ALLENS TEST Positive Normal [facility] Comment on above: Performed By: #### A BG ####[facility] Iegfgsiply[address] [place], [place] [address]Dr. Charlee Pearson Base excess Calc (Bld) [Moles/Vol] 8.9 mmol/L Critically high -2.0-2.0 [facility] Comment on above: Performed By: #### A BG ####[facility] Njbelixoti[address] [place], [place] [address]Dr. Charlee Pearson BIPAP PRESSURE Normal [facility] Comment on above: Performed By: #### A BG ####[facility] Ahuhgtwsiq5[address] [place], [place] [address]Dr. Charlee Pearson CO2 [Moles/Vol] 65.3 mmol/L Critically high 23.0-28.0 [facility] Comment on above: Performed By: #### A BG ####[facility] Olxnvjyeow[address] [place], [place] [address]Dr. Charlee Pearson CPAP Normal [facility] Comment on above: Performed By: #### A BG ####[facility] Elfcdkgnlq509[address] [place], [place] [address]Dr. Charlee Pearson FIO2 [address] [facility] Comment on above: Performed By: #### A BG ####[facility] Ylmxopqzcl[address] [place], [place] [address]Dr. Charlee Pearson HCO3 (Bld) [Moles/Vol] 31.7 mmol/L Critically high 22.0-26 .0 [facility] Comment on above: Performed By: #### A BG ####[facility] Edgoxczugo6698 [place] [address]Dr. Charlee Pearson LPM [address] [facility] Comment on above: Performed By: #### A BG ####[facility] Ibthhmxpiz1004 [place] [address]Dr. Charlee Pearson MINUTE VOLUME Normal [facility] [place] [facility] Comment on above: Performed By: #### A BG ####[facility] Caparwemgk9555 [place] [address]Dr. Charlee Pearson Oxygen (Bld) [Partial pressure] 51.2 mm[Hg] Critically low 80.0-100.[address] [facility] Comment on above: Performed By: #### A BG ####[facility] Iixicpddfx[address] [place], [place] [address]Dr. Charlee Pearson Oxygen saturation in Blood 89.9 % Critically low 95.0-100.0 [facility] Comment on above: Performed By: #### A BG ####[facility] Zgrwdoctio[address] [place], [place] [address]Dr. Charlee Pearson PCO2 42.5 mmHg Normal 35.0-45.0 [facility] Comment on above: Performed By: #### A BG ####[facility] Wscbihfrxb[address] [place], [place] [address]Dr. Charlee Pearson PEEP Normal [facility] Comment on above: Performed By: #### A BG ####[facility] Qdgdbmnwbb220[address] [place], [place] [address]Dr. Charlee Pearson pH (Bld) 7.489 [pH] Critically high 7.350-7.450 [facility] Comment on above: Performed By: #### A BG ####[facility] J[address]kkxjotlm[address] [place], [place] [address]Dr. Charlee Pearson PIP [place] [facility] Comment on above: Performed By: #### A BG ####[facility] Eudukzqeau[address] [place], [place] [address]Dr. Charlee Pearson PS Normal [facility] Comment on above: Performed By: #### A BG ####[facility] Aocmvznagk8343 [place] [id number]. Chralee Pearson PUNCTURE SITE LR Normal [facility] Comment on above: Performed By: #### A BG ####[facility] Abxrnijlmx3122 [place] [address]Dr. Charlee Pearson RATE Normal [facility] Comment on above: Performed By: #### A BG ####[facility] Typwbociqr9763 [place] [address]Dr. Charlee Pearson VENT MODE Normal [facility] Comment on above: Performed By: #### A BG ####[facility] Mbyplnnhlx5895 [place] [address]Dr. Charlee Pearson VT Normal [facility] Comment on above: Performed By: #### A BG ####[facility] Dwfdvzscsy6928 [place] [address]Dr. Charlee Pearson CBC W MANUAL DIFFon 03-22-20 22 ATYPICAL LYMPH # Normal [facility] Comment on above: Performed By: #### C BCMAN ####[facility] Pjwhpcklze9352 [place] [address]Dr. Charlee Pearson ATYPICAL LYMPH % Normal [facility] Comment on above: Performed By: #### C BCMAN ####[facility] Rbueclvfrn[address] [place], [place] [address]Dr. Charlee Pearson BAND # 1.3 103/ul Critically high 0.0-0.3 The [facility] [place] Comment on above: Performed By: #### C BCMAN ####[facility] Bkfxdwfbbx2379 [place] [address]Dr. Charlee Pearson BAND % 4 % Normal 0-[address] [facility] Comment on above: Performed By: #### C BCMAN ####[facility] Afxevbipcb47[address] [place], [place] [address]Dr. Charlee Pearson BASOM # 0.00 103/ul Normal 0.00-0.[address] [facility] Comment on above: Performed By: #### C BCMAN ####[facility] Fprszlzrgf[address] [place], [place] [address]Dr. Charlee Pearson BASOM % 0.0 % Critically low 0.2-2.0 The [facility] Comment on above: Performed By: #### C BCMAN ####[facility] Ihogugavgi9783 [place] [address]Dr. Charlee Pearson BLAST # Normal [facility] Comment on above: Performed By: #### C BCMAN ####[facility] Wgldfudepy0549 [place] [address]Dr. Charlee Pearson BLAST % Normal [facility] Comment on above: Performed By: #### C BCMAN ####[facility] Fbarjyswxq5739 [place] [address]Dr. Charlee Pearson CORRECTED WBC Normal 4.0-11.0 The [facility] Comment on above: Performed By: #### C BCJARON ####[facility] Ljvblkufxz[address] [place], [place] [address]Dr. Charlee Pearson EOS # 0.00 103/ul Normal 0.00-0.70 [facility] Comment on above: Performed By: #### C BCJARON ####[facility] Bhnbiakzab323[address] [place], [place] [address]Dr. Charlee Pearson EOS% 0.0 % Critically low 0.9-7.0 [facility] Comment on above: Performed By: #### C BCJARON ####[facility] Sdwpbhzvmx[address] [place], [place] [address]Dr. Charlee Pearson HCT 33.7 % Critically low 36.0-48.0 [facility] Comment on above: Performed By: #### C BCMAN ####[facility] Eslrdlworc344[address] [place], [place] [address]Dr. Charlee Pearson HGB 11.8 g/dl Critically low 12.0-16.0 [facility] Comment on above: Performed By: #### C BCMAN ####[facility] Qeejfqvweu[address] [place], [place] [address]Dr. Charlee Pearson LYMPHM # 0.34 103/ul Critically low 1.20-3.80 [facility] [place] Comment on above: Performed By: #### C BCMAN ####[facility] Lvxqkpavyr8766 [place], [place] [address]Xh. Charlee Pearson LYMPHM% 1.0 % Critically low 20.5-60.0 [facility] Comment on above: Performed By: #### C KERRIE ####[facility] Kwgzquwshb8681 [place], [place] [address]Cl. Charlee Pearson MCH 31.7 pg Normal 26.7-34.[address] [facility] Comment on above: Performed By: #### C KERRIE ####[facility] Ftznszffxk5758 [place], [place] [address]Wk. Charlee Pearson MCHC 35.0 g/dl Normal 29.9-35.[address] [facility] Comment on above: Performed By: #### C KERRIE ####[facility] Xbweoihyto4532 [place] [id number]. Charlee Pearson MCV 90.6 fL Normal 81.0-99.[address] [facility] Comment on above: Performed By: #### C KERRIE ####[facility] Qmrlkhsfmu8224 [place] [id number]. Charlee Pearson METAMYELOCYTE # Normal [facility] [place] Comment on above: Performed By: #### C KERRIE ####[facility] Buauvkdlxr9676 [place] [id number]. Charlee Pearson METAMYELOCYTE % Normal [facility] [place] Comment on above: Performed By: #### C KERRIE ####[facility] Shniwhdywm2058 [place] [id number]. Charlee Pearson MONOM# 2.02 103/ul Critically high 0.30-0.80 [facility] Comment on above: Performed By: #### C KERRIE ####[facility] Udwznclsgk6593 [place] [id number]. Charlee Pearson MONOM% 6.0 % Normal 1.7-12.[address] [facility] Comment on above: Performed By: #### C KERRIE ####[facility] Cfbkbvhzrr8454 [place] [id number]. Charlee Pearson MPV 9.2 fL Critically low 9.5-13.5 [facility] Comment on above: Performed By: #### C KERRIE ####[facility] Fziglghzww7102 [place], [place] [address]Ht. Charlee Pearson MYELOCYTE # Normal [facility] Comment on above: Performed By: #### C KERRIE ####[facility] Xbifmjgddy1306 [place], [place] [address]Tt. Charlee Pearson MYELOCYTE % Normal [facility] Comment on above: Performed By: #### C KERRIE ####[facility] Venmtwiudq2375 [place] [id number]. Charlee Pearson NRBC Normal [facility] Comment on above: Performed By: #### C KERRIE ####[facility] Nxcjdbmtqd7358 [place] [id number]. Charlee Pearson PLT 315 103/ul Normal 150-450 [facility] Comment on above: Performed By: #### C KERRIE ####[facility] Akbhogiapj5307 [place] [phone]. Charlee Pearson RBC 3.72 106/ul Critically low 4.20-5.40 [facility] Comment on above: Performed By: #### C KERRIE ####[facility] Szzuxngvoo5278 [place] [phone]. Charlee Pearson RDW 12.8 % Normal 11.0-15.0 [facility] Comment on above: Performed By: #### C KERRIE ####[facility] Loxwccnjxo9378 [place] [phone]. Charlee Pearson SEG # 29.99 103/ul Critically high 1.40-6.50 [facility] Comment on above: Performed By: #### C KERRIE ####[facility] Ihrtyizzfl9864 [place] [id number]. Charlee Pearson SEG % 89.0 % Critically high 43.0-75.0 [facility] [place] Comment on above: Performed By: #### C KERRIE ####[facility] Agewtssxof1744 [place] [phone]. Charlee Pearson WBC 33.7 103/ul Critically high 4.0-11.0 [facility] Comment on above: Performed By: #### C BCMAN ####[facility] Zoepvkfgxn3832 [place] [address]Dr. Charlee Pearson GRAM STAINon 03-22-2022 COMMENTS NO ORGANISMS OBSERVED Normal [facility] Comment on above: Performed By: #### G STAIN ####[facility] Ygazqlkmtb4424 [place] [phone]. Charlee Pearson DIPHTHEROIDS Normal [facility] Comment on above: Performed By: #### G STAIN ####[facility] Awqbrojezx4736 [place] [address]Dr. Charlee Pearson EPITHELIALS Normal [facility] Comment on above: Performed By: #### G STAIN ####[facility] Zzedfmjqol1971 [place] [address]Dr. Charlee Pearson FUNGAL ELEMENTS Normal [facility] [place] Comment on above: Performed By: #### G STAIN ####[facility] Fgucdcgovl[address] [place], [place] [address]Dr. Charlee Pearson GRAM NEG BACILLI Normal [facility] Comment on above: Performed By: #### G STAIN ####[facility] Rpuzftodqz34[address] [place], [place] [address]Dr. Charlee Pearson GRAM NEG DIPPLOCOCCI Normal [facility] Comment on above: Performed By: #### G STAIN ####[facility] Qqoiavyvev9603 [place] [address]Dr. Charlee Pearson GRAM POS BACILLI Normal [facility] Comment on above: Performed By: #### G STAIN ####[facility] Yjihyphgkf0720 [place] [address]Dr. Charlee Pearson GRAM POSITIVE COCCI Normal The [facility] Comment on above: Performed By: #### G STAIN ####[facility] Dbmojeayye377[address] [place], [place] [address]Dr. Charlee Pearson GRAM STAIN SOURCE Rt Upper Lobe Normal [facility] Comment on above: Performed By: #### G STAIN ####[facility] Vxmsfvfunn039[address] [place], [place] [address]Dr. Charlee Pearson GRAM STAIN SOURCE Lt Upper Lobe Normal [facility] Comment on above: Performed By: #### G STAIN ####[facility] Ipnqwcthli4314 [place] [address]Dr. Charlee Pearson GS_DIPTH Normal [facility] Comment on above: Performed By: #### G STAIN ####[facility] Fqvhcfnrnv8543 [place] [address]Dr. Charlee Pearson WBC FEW Normal [facility] Comment on above: Performed By: #### G STAIN ####[facility] Nocupbpgyr1889 [place] [address]Dr. Charlee Pearson WBC RARE Normal [facility] Comment on above: Performed By: #### G STAIN ####[facility] Ryetxytsrb7100 [place] [address]Dr. Charlee Pearson PROF CHEM 8 (BAS METB)on Anion gap [Moles/Vol] 9.8 mmol/L Normal [facility] Comment on above: Performed By: #### B MP ####[facility] Ngerxkgzua318[address] [place], [place] [address]Dr. Charlee Pearson Calcium [Mass/Vol] 9.5 mg/dL Normal 8.5-10.1 [facility] Comment on above: Performed By: #### B MP ####[facility] Jqmtypdnlf6739[address] [place], [place] [address]Dr. Charlee Pearson Chloride [Moles/Vol] 98 mmol/L Normal 98-[address] [facility] Comment on above: Performed By: #### B MP ####[facility] Speewtgawm5985 [place] [address]Dr. Charlee Pearson CO2 [Moles/Vol] 31.2 mmol/L Normal 21.0-32.0 [facility] Comment on above: Performed By: #### B MP ####[facility] Mhpnglniie0933 [place] [address]Dr. Charlee Pearson Creatinine [Mass/Vol] 0.51 mg/dL Critically low 0.55-1.02 [facility] Comment on above: Performed By: #### B MP ####[facility] Umigeuohzg3079 [place] [address]Dr. Charlee Pearson EGFR-AF MICRONESIAN >60 Normal >=60 [facility] Comment on above: Performed By: #### B MP ####[facility] Qsqzoqlhvo1279 [place] [address]Dr. Charlee Pearson EGFR-NON AF MICRONESIAN >60 Normal >=60 [facility] Comment on above: Performed By: #### B MP ####[facility] Janjkqihvw4257 [place] [address]Dr. Charlee Pearson Glucose [Mass/Vol] 144 mg/dL Critically high 74-106 [facility] Comment on above: Performed By: #### B MP ####[facility] Jmbvmzbfux87[address] [place], [place] [address]Dr. Charlee Pearson Potassium [Moles/Vol] 3.0 mmol/L Critically low 3.5-5.1 [facility] Comment on above: Performed By: #### B MP ####[facility] Yfnudnkeqz67[address] [place], [place] [address]Dr. Charlee Pearson Sodium [Moles/Vol] 136 mmol/L Normal 136-145 [facility] Comment on above: Performed By: #### B MP ####[facility] Opmvszbmzl584[address] [place], [place] [address]Dr. Charlee Pearson Urea nitrogen [Mass/Vol] 8.0 mg/dL Normal 7.0-18.0 [facility] Comment on above: Performed By: #### B MP ####[facility] Zrkrjuihkc129[address] [place], [place] [address]Dr. Charlee Pearson Urea nitrogen/Creatinine [Mass ratio] 15.7 mg/mg Normal [facility] Comment on above: Performed By: #### B MP ####[facility] Fytxezcdjo743[address] [place], [place] [address]Dr. Charlee Michel CBC AUTO DIFFon 03-21-2022 BASO # 0.1 103/ul Normal 0.0-0.1 [facility] Comment on above: Performed By: #### C BC ####[facility] [address]lqmiryr[address] [place], [place] [address]Dr. Charlee Pearson Basophils/100 WBC (Bld) 0.2 % Normal 0.2-2.0 [facility] Comment on above: Performed By: #### C BC ####[facility] Bgahfsrtaz7308 [place] [address]Dr. Charlee Pearson EO # 0.1 103/ul Normal 0.0-0.[address] [facility] Comment on above: Performed By: #### C BC ####[facility] Wfzjbrtcub4228 [place] [address]Dr. Charlee Pearson Eosinophils/100 WBC (Bld) 0.4 % Critically low 0.9-7.[address] [facility] Comment on above: Performed By: #### C BC ####[facility] Svarujrlas[address] [place], [place] [address]Dr. Charlee Pearson Erythrocyte distribution width (RBC) [Ratio] 12.7 % Normal 11.0-15.0 [facility] Comment on above: Performed By: #### C BC ####[facility] Rtuxjrvrod[address] [place], [place] [address]Dr. Charlee Pearson Hematocrit (Bld) [Volume fraction] 34.2 % Critically low 36.0-48.0 [facility] Comment on above: Performed By: #### C BC ####[facility] Tqsildjget[address] [place], [place] [address]Dr. Charlee Pearson Hemoglobin (Bld) [Mass/Vol] 11.9 g/dL Critically low 12.0-16.0 [facility] Comment on above: Performed By: #### C BC ####[facility] Dlwlaaqlgc3857 [place] [address]Dr. Charlee Pearson IG # 0.74 10e3/ul Critically high 0.00-0.03 [facility] Comment on above: Performed By: #### C BC ####[facility] Xrkzscllzj[address] [place], [place] [address]Dr. Charlee Pearson IG % 2.8 % Critically high 0.0-0.5 [facility] [place] Comment on above: Performed By: #### C BC ####[facility] Kmmsiemrny7263 [place], [place] [address]Gp. Charlee Michel LYMPH # 0.4 103/ul Critically low 1.2-3.8 [facility] Comment on above: Performed By: #### C BC ####[facility] Yadmuwbyik2174 [place], [place] [address]Yi. Charlee Michel Lymphocytes/100 WBC (Bld) 1.3 % Critically low 20.5-60.0 [facility] Comment on above: Performed By: #### C BC ####[facility] Jodzbvnwzy6014 [place] [phone]. Claudetteclaudette Pearson MANUAL DIFF REQ NO Normal [facility] Comment on above: Performed By: #### C BC ####[facility] Qoyevkkckw1164 [place] [phone]. Charlee Michel MCH (RBC) [Entitic mass] 31.5 pg Normal 26.7-34.0 [facility] Comment on above: Performed By: #### C BC ####[facility] Veyetzhqoh5537 [place] [id number]. Charlee Michel MCHC (RBC) [Mass/Vol] 34.8 g/dL Normal 29.9-35.2 [facility] Comment on above: Performed By: #### C BC ####[facility] Jhngeaysis8680 [place] [phone]. Charlee Pearson MCV (RBC) [Entitic vol] 90.5 fL Normal 81.0-99.0 [facility] Comment on above: Performed By: #### C BC ####[facility] Aszjdrurpx3424 [place] [address]Dr. Claudetteclaudette Michel MONO # 1.4 103/ul Critically high 0.3-0.8 [facility] Comment on above: Performed By: #### C BC ####[facility] Sjajnadmjo2831 [place] [address]Dr. Claudetteclaudette Pearson Monocytes/100 WBC (Bld) 5.3 % Normal 1.7-12.0 [facility] Comment on above: Performed By: #### C BC ####[facility] Soqkpezgwl8505 [place], [place] [address]Fh. Charlee Pearson NEUT # 23.8 103/ul Critically high 1.4-6.5 [facility] Comment on above: Performed By: #### C BC ####[facility] Qyaosxsueg8009 [place] [phone]. Charlee Pearson Neutrophils/100 WBC (Bld) 90.0 % Critically high 43.0-75.[address] [facility] Comment on above: Performed By: #### C BC ####[facility] Xgsefuzlen8443 [place] [phone]. Charlee Pearson Platelet mean volume (Bld) [Entitic vol] 9.1 fL Critically low 9.5-13.[address] [facility] Comment on above: Performed By: #### C BC ####[facility] Artbwbonhm7626 [place] [phone]. Charlee Pearson PLT 316 103/ul Normal 150-[address] [facility] Comment on above: Performed By: #### C BC ####[facility] Xexmiosaeb7208 [place] [phone]. Charlee Pearson RBC 3.78 106/ul Critically low 4.20-5.40 [facility] [place] Comment on above: Performed By: #### C BC ####[facility] Ebcyzokdnp4414 [place] [phone]. Charlee Pearson WBC 26.4 103/ul Critically high 4.0-11.0 [facility] Comment on above: Performed By: #### C BC ####[facility] Yahcghrxsk3097 [place] [phone]. Charlee Pearson CT CHEST W CONon 03-21-2022 CT CHEST W CON Normal [facility] PROF CHEM 8 (BAS METB)on Anion gap [Moles/Vol] 11.2 mmol/L Normal [facility] Comment on above: Performed By: #### B MP ####[facility] Miadvhqjvk[address] [place], [place] [address]Dr. Charlee Pearson Calcium [Mass/Vol] 9.5 mg/dL Normal 8.5-10.1 [facility] Comment on above: Performed By: #### B MP ####[facility] Rtposviepl1246 [place] [address]Dr. Claudetteclaudette Pearson Chloride [Moles/Vol] 99 mmol/L Normal 98-107 [facility] Comment on above: Performed By: #### B MP ####[facility] Gfmikjgtkw9949 [place] [address]Dr. Claudetteclaudette Michel CO2 [Moles/Vol] 29.5 mmol/L Normal 21.0-32.0 [facility] Comment on above: Performed By: #### B MP ####[facility] Nkgyzebbcr[address] [place], [place] [address]Dr. Claudetteclaudette Michel Creatinine [Mass/Vol] 0.61 mg/dL Normal 0.55-1.02 [facility] Comment on above: Performed By: #### B MP ####[facility] Arwunvfrnp[address] [place], [place] [address]Dr. Claudetteclaudette Michel EGFR-AF MICRONESIAN >60 Normal >=60 [facility] Comment on above: Performed By: #### B MP ####[facility] Snmkjgczct[address] [place], [place] [address]Dr. Claudetteclaudette Michel EGFR-NON AF MICRONESIAN >60 Normal >=60 [facility] Comment on above: Performed By: #### B MP ####[facility] Ckrlvxrfns[address] [place], [place] [address]Dr. Charlee Pearson Glucose [Mass/Vol] 162 mg/dL Critically high 74-106 [facility] Comment on above: Performed By: #### B MP ####[facility] Bssmwudeff19[address] [place], [place] [address]Dr. Charlee Pearson Potassium [Moles/Vol] 2.7 mmol/L Critically low 3.5-5.[address] [facility] Comment on above: Performed By: #### B MP ####[facility] Lbntqqrjsc[address] [place], [place] [address]Dr. Charlee Pearson Sodium [Moles/Vol] 137 mmol/L Normal 136-145 [facility] Comment on above: Performed By: #### B MP ####[facility] Sdxvgyaomu6220 [place] [id number]. Charlee Pearson Urea nitrogen [Mass/Vol] 7.0 mg/dL Normal 7.0-18.0 [facility] Comment on above: Performed By: #### B MP ####[facility] Ywwcerlzcw0143 [place] [address]Dr. Charlee Pearson Urea nitrogen/Creatinine [Mass ratio] 11.5 mg/mg Normal [facility] Comment on above: Performed By: #### B MP ####[facility] Vprkaoubps6465 [place] [address]Dr. Charlee Pearson XR CHEST 2 Von 03-21-2022 XR CHEST 2 V Normal [facility] CBC W MANUAL DIFFon 03-20-20 ATYPICAL LYMPH # Normal [facility] Comment on above: Performed By: #### C BCMAN ####[facility] Kfrhtgxscp[address] [place], [place] [address]Dr. Charlee Pearson ATYPICAL LYMPH % Normal [facility] Comment on above: Performed By: #### C BCMAN ####[facility] Tawifyupsy0821 [place] [address]Dr. Charlee Pearson BAND # 1.1 103/ul Critically high 0.0-0.3 [facility] Comment on above: Performed By: #### C BCMAN ####[facility] Qkqkogryft6754 [place] [address]Dr. Charlee Pearson BAND % 5 % Normal 0-[address] [facility] Comment on above: Performed By: #### C BCMAN ####[facility] Liddogbuvo2101 [place] [address]Dr. Charlee Pearson BASOM # 0.00 103/ul Normal 0.00-0.[address] [facility] Comment on above: Performed By: #### C BCMAN ####[facility] Bvjgcpifyu9555 [place] [address]Dr. Claudetteclaudette Michel BASOM % 0.0 % Critically low 0.2-2.0 [facility] Comment on above: Performed By: #### C BCJARON ####[facility] Ztsfculria5803 [place] [phone]. Charlee Pearson BLAST # Normal [facility] Comment on above: Performed By: #### C KERRIE ####[facility] Wbfhhgpaxl2775 [place] [phone]. Charlee Pearson BLAST % Normal [facility] Comment on above: Performed By: #### C BCJARON ####[facility] Lcgptyrodv4223 [place] [address]Dr. Charlee Pearson CORRECTED WBC Normal 4.0-11.0 [facility] Comment on above: Performed By: #### C KERRIE ####[facility] Gqaypyymvb[address] [place], [place] [address]Dr. Charlee Pearson EOS # 0.00 103/ul Normal 0.00-0.70 [facility] Comment on above: Performed By: #### C KERRIE ####[facility] Oznosiurks9[address] [place], [place] [address]Dr. Charlee Pearson EOS% 0.0 % Critically low 0.9-7.0 [facility] Comment on above: Performed By: #### C KERRIE ####[facility] Vmhbaczzpa9[address] [place], [place] [address]Dr. Charlee Pearson HCT 35.0 % Critically low 36.0-48.0 [facility] Comment on above: Performed By: #### C KERRIE ####[facility] Pqftiukfiy[address] [place], [place] [address]Dr. Charlee Pearson HGB 12.1 g/dl Normal 12.0-16.0 [facility] Comment on above: Performed By: #### C KERRIE ####[facility] Pmsoeyigng[address] [place], [place] [address]Dr. Charlee Pearson LYMPHM # 0.46 103/ul Critically low 1.20-3.80 [facility] Comment on above: Performed By: #### C KERRIE ####[facility] Wotaywomtg[address] [place], [place] [address]Dr. Charlee Pearson LYMPHM% 2.0 % Critically low 20.5-60.0 [facility] Comment on above: Performed By: #### C KERRIE ####[facility] Yzzwyseymg8692 [place] [address]Dr. Charlee Pearson MCH 31.6 pg Normal 26.7-34.0 [facility] Comment on above: Performed By: #### C KERRIE ####[facility] Zvercstucb5848 [place] [id number]. Charlee Pearson MCHC 34.6 g/dl Normal 29.9-35.[address] [facility] Comment on above: Performed By: #### C KERRIE ####[facility] Tyxftanmsd6090 [place] [address]Dr. Charlee Pearson MCV 91.4 fL Normal 81.0-99.[address] [facility] Comment on above: Performed By: #### C KERRIE ####[facility] Syiamugqoa02[address] [place], [place] [address]Dr. Charlee Pearson METAMYELOCYTE # Normal [facility] [place] Comment on above: Performed By: #### C KERRIE ####[facility] Bubpqjxdpu4307 [place] [phone]. Charlee Pearson METAMYELOCYTE % Normal [facility] [place] Comment on above: Performed By: #### C KERRIE ####[facility] Alsfxevkcw8806 [place] [address]Dr. Charlee Pearson MONOM# 0.23 103/ul Critically low 0.30-0.80 [facility] [place] Comment on above: Performed By: #### C KERRIE ####[facility] Bkuwmwshtm7163 [place] [address]Dr. Charlee Pearson MONOM% 1.0 % Critically low 1.7-12.0 [facility] Comment on above: Performed By: #### C KERRIE ####[facility] Xledgeutaw9828 [place] [phone]. Charlee Pearson MPV 9.5 fL Normal 9.5-13.[address] [facility] Comment on above: Performed By: #### C KERRIE ####[facility] Kurczumphe3926 [place], [place] [address]Kv. Charlee Pearson MYELOCYTE # Normal [facility] Comment on above: Performed By: #### C KERRIE ####[facility] Carszeeexy5482 [place], [place] [address]Cd. Charlee Pearson MYELOCYTE % Normal [facility] Comment on above: Performed By: #### C KERRIE ####[facility] Yeeviruzjq2645 [place] [phone]. Charlee Pearson NRBC Normal [facility] Comment on above: Performed By: #### C KERRIE ####[facility] Mieephvdsu8738 [place] [phone]. Charlee Pearson PLT 275 103/ul Normal 150-450 [facility] Comment on above: Performed By: #### C KERRIE ####[facility] Rbcozncgor5830 [place] [phone]. Charlee Pearson RBC 3.83 106/ul Critically low 4.20-5.40 [facility] Comment on above: Performed By: #### C KERRIE ####[facility] Omexcjrtmc1026 [place] [phone]. Charlee Pearson RDW 12.5 % Normal 11.0-15.0 [facility] Comment on above: Performed By: #### C KERRIE ####[facility] Vwnkvjqupu8529 [place] [phone]. Charlee Pearson SEG # 20.98 103/ul Critically high 1.40-6.50 [facility] [facility] Comment on above: Performed By: #### C KERRIE ####[facility] Fffboqntpl[address] [place] [id number]. Charlee Pearson SEG % 92.0 % Critically high 43.0-75.0 [facility] [place] Comment on above: Performed By: #### C KERRIE ####[facility] Watqxrtvvo7[address] [place] [id number]. Charlee Pearson WBC 22.8 103/ul Critically high 4.0-11.0 The [facility] Comment on above: Performed By: #### C KERRIE ####[facility] Lmhmnuiwlu90[address] [place] [id number]. Charlee Pearson PROF CHEM 8 (BAS METB)on Anion gap [Moles/Vol] 11.7 mmol/L Normal [facility] Comment on above: Performed By: #### B MP ####[facility] [address]igilxc[address] [place] [address]Dr. Charlee Pearson Calcium [Mass/Vol] 9.4 mg/dL Normal 8.5-10.1 [facility] Comment on above: Performed By: #### B MP ####[facility] Kimjdrbumy50[address] [place] [address]Dr. Charlee Pearson Chloride [Moles/Vol] 99 mmol/L Normal 98-107 [facility] Comment on above: Performed By: #### B MP ####[facility] Mcxdetytot[address] [place] [address]Dr. Charlee Pearson CO2 [Moles/Vol] 27.4 mmol/L Normal 21.0-32.0 [facility] Comment on above: Performed By: #### B MP ####[facility] Fuvtzdfefq24[address] [place] [address]Dr. Charlee Pearson Creatinine [Mass/Vol] 0.55 mg/dL Normal 0.55-1.02 [facility] Comment on above: Performed By: #### B MP ####[facility] Tezstybgle[address] [place] [address]Dr. Charlee Pearson EGFR-AF MICRONESIAN >60 Normal >=60 [facility] Comment on above: Performed By: #### B MP ####[facility] Mhcwqnnryz01[address] [place] [address]Dr. Charlee Pearson EGFR-NON AF MICRONESIAN >60 Normal >=60 [facility] Comment on above: Performed By: #### B MP ####[facility] Zmfobyqyfw[address] [place] [address]Dr. Charlee Pearson Glucose [Mass/Vol] 156 mg/dL Critically high 74-106 [facility] Comment on above: Performed By: #### B MP ####[facility] Fuwobuwkmw57[address] [place] [address]Dr. Charlee Pearson Potassium [Moles/Vol] 3.1 mmol/L Critically low 3.5-5.1 [facility] Comment on above: Performed By: #### B MP ####[facility] Iiguwogbad8[address] [place], [place] [address]Dr. Charlee Michel Sodium [Moles/Vol] 135 mmol/L Critically low 136-145 [facility] Comment on above: Performed By: #### B MP ####[facility] Gvynjrhzvg[address] [place], [place] [address]Dr. Charlee Michel Urea nitrogen [Mass/Vol] 5.0 mg/dL Critically low 7.0-18.0 [facility] Comment on above: Performed By: #### B MP ####[facility] Duawtozfuq[address] [place], [place] [address]Dr. Charlee Pearson Urea nitrogen/Creatinine [Mass ratio] 9.1 mg/mg Normal [facility] Comment on above: Performed By: #### B MP ####[facility] Cumisulziw[address] [place], [place] [address]Dr. Charlee Michel CBC AUTO DIFFon 03-19-2022 BASO # 0.0 103/ul Normal 0.0-0.1 [facility] Comment on above: Performed By: #### C BC ####[facility] Ghvhcotlpq[address] [place], [place] [address]Dr. Charlee Pearson Basophils/100 WBC (Bld) 0.1 % Critically low 0.2-2.[address] [facility] Comment on above: Performed By: #### C BC ####[facility] Xbhymayubj190[address] [place], [place] [address]Dr. Charlee Pearson EO # 0.0 103/ul Normal 0.0-0.[address] [facility] Comment on above: Performed By: #### C BC ####[facility] Wrtrjbvqur38[address] [place], [place] [address]Dr. Charlee Pearson Eosinophils/100 WBC (Bld) 0.0 % Critically low 0.9-7.0 [facility] Comment on above: Performed By: #### C BC ####[facility] Semtqqwaxz32[address] [place] [address]Dr. Charlee Pearson Erythrocyte distribution width (RBC) [Ratio] 12.9 % Normal 11.0-15.0 [facility] Comment on above: Performed By: #### C BC ####[facility] Xsuokqunmd0421 [place] [address]Dr. Charlee Pearson Hematocrit (Bld) [Volume fraction] 35.9 % Critically low 36.0-48.0 [facility] Comment on above: Performed By: #### C BC ####[facility] Bnrltljbju778[address] [place], [place] [address]Dr. Charlee Pearson Hemoglobin (Bld) [Mass/Vol] 12.0 g/dL Normal 12.0-16.0 [facility] Comment on above: Performed By: #### C BC ####[facility] Hqqigoymjc44[address] [place], [place] [address]Dr. Charlee Pearson IG # 0.41 10e3/ul Critically high 0.00-0.03 [facility] Comment on above: Performed By: #### C BC ####[facility] Qybljpkcro277[address] [place], [place] [address]Dr. Charlee Pearson IG % 1.8 % Critically high 0.0-0.5 [facility] Comment on above: Performed By: #### C BC ####[facility] Rpritwbvcz07[address] [place], [place] [address]Dr. Charlee Pearson LYMPH # 0.4 103/ul Critically low 1.2-3.8 [facility] Comment on above: Performed By: #### C BC ####[facility] Vxhstytpcf46[address] [place], [place] [address]Dr. Charlee Pearson Lymphocytes/100 WBC (Bld) 1.9 % Critically low 20.5-60.0 [facility] Comment on above: Performed By: #### C BC ####[facility] Zsnlvfiipb55[address] [place], [place] [address]Dr. Charlee Pearson MANUAL DIFF REQ NO Normal [facility] Comment on above: Performed By: #### C BC ####[facility] Lvsegezctk48[address] [place] [phone]. Charlee Pearson MCH (RBC) [Entitic mass] 31.4 pg Normal 26.7-34.0 [facility] Comment on above: Performed By: #### C BC ####[facility] Leniuhupkj[address] [place] [address]Dr. Charlee Michel MCHC (RBC) [Mass/Vol] 33.4 g/dL Normal 29.9-35.2 [facility] Comment on above: Performed By: #### C BC ####[facility] Vlrhhzzjdb1867 [place] [address]DrOttoniel Claudetteclaudette Pearson MCV (RBC) [Entitic vol] 94.0 fL Normal 81.0-99.0 [facility] Comment on above: Performed By: #### C BC ####[facility] Gjbwstvuau8[address] [place], [place] [address]DrOttoniel Pearson MONO # 0.4 103/ul Normal 0.3-0.8 [facility] Comment on above: Performed By: #### C BC ####[facility] Mbwklazrbp68[address] [place], [place] [address]DrOttoniel Claudetteclaudette Pearson Monocytes/100 WBC (Bld) 1.8 % Normal 1.7-12.0 [facility] Comment on above: Performed By: #### C BC ####[facility] Oskxaquhyi[address] [place], [place] [address]DrOttoniel Wilkinsclaudette Michel NEUT # 21.1 103/ul Critically high 1.4-6.5 [facility] Comment on above: Performed By: #### C BC ####[facility] Syfbnwztzb15[address] [place], [place] [address]DrOttoniel Pearson Neutrophils/100 WBC (Bld) 94.4 % Critically high 43.0-75.0 [facility] Comment on above: Performed By: #### C BC ####[facility] Aruokqxcws[address] [place], [place] [address]DrOttoniel Pearson Platelet mean volume (Bld) [Entitic vol] 9.0 fL Critically low 9.5-13.5 [facility] Comment on above: Performed By: #### C BC ####[facility] Tqcljbzkbu6898 [place] [phone]. Claudetteclaudette Michel PLT 218 103/ul Normal 150-450 [facility] Comment on above: Performed By: #### C BC ####[facility] Umkwocndwu2135 [place] [phone]. Claudetteclaudette Michel RBC 3.82 106/ul Critically low 4.20-5.40 [facility] Comment on above: Performed By: #### C BC ####[facility] Aafnjnvqvr0944 [place] [id number]. Charlee Pearson WBC 22.4 103/ul Critically high 4.0-11.0 [facility] Comment on above: Performed By: #### C BC ####[facility] Drdcxjcems0164 [place] [id number]. Charlee Pearson PROF CHEM 8 (BAS METB)on Anion gap [Moles/Vol] 15.6 mmol/L Normal [facility] Comment on above: Performed By: #### B MP ####[facility] Ydwfzprzlu[address] [place], [place] [address]Dr. Charlee Pearson Calcium [Mass/Vol] 9.0 mg/dL Normal 8.5-10.1 [facility] Comment on above: Performed By: #### B MP ####[facility] Pnmokoqlvy0927 [place] [address]Dr. Charlee Pearson Chloride [Moles/Vol] 98 mmol/L Normal 98-107 [facility] Comment on above: Performed By: #### B MP ####[facility] Vcvhbqidxm3807 [place] [phone] Pearson CO2 [Moles/Vol] 23.5 mmol/L Normal 21.0-32.0 [facility] Comment on above: Performed By: #### B MP ####[facility] Bifkkxwjsr[address] [place] [phone] Pearson Creatinine [Mass/Vol] 0.59 mg/dL Normal 0.55-1.02 [facility] Comment on above: Performed By: #### B MP ####[facility] Hprfzpqpnw47[address] [place] [address]Dr. Charlee Pearson EGFR-AF MICRONESIAN >60 Normal >=60 [facility] Comment on above: Performed By: #### B MP ####[facility] Msdjcdcrab7543 [place] [phone]. Claudetteclaudette Michel EGFR-NON AF MICRONESIAN >60 Normal >=60 [facility] Comment on above: Performed By: #### B MP ####[facility] Qdqmfctsmj2567 [place] [phone]. Charlee Pearson Glucose [Mass/Vol] 169 mg/dL Critically high 74-106 [facility] Comment on above: Performed By: #### B MP ####[facility] Eeetbxomqe9104 [place] [address]Dr. Charlee Pearson Potassium [Moles/Vol] 4.1 mmol/L Normal 3.5-5.1 [facility] Comment on above: Performed By: #### B MP ####[facility] Sothiqvosw4187 [place] [address]Dr. Charlee Pearson Sodium [Moles/Vol] 133 mmol/L Critically low 136-145 Th [facility] Comment on above: Performed By: #### B MP ####[facility] Qvufowwaxj3609 [place] [phone]. Charlee Pearson Urea nitrogen [Mass/Vol] 8.0 mg/dL Normal 7.0-18.0 [facility] Comment on above: Performed By: #### B MP ####[facility] Atrghdfqyt4760 [place] [phone]. Charlee Pearson Urea nitrogen/Creatinine [Mass ratio] 13.6 mg/mg Normal [facility] Comment on above: Performed By: #### B MP ####[facility] Jpkueaarze0752 [place] [phone]. Charlee Pearson XR CHEST 2 Von 03-19-2022 XR CHEST [address] [facility] BLOOD CULTURE ID PANELon A. baumannii Not detected Normal NOT DETECTED [facility] Comment on above: Performed By: #### B CID2 ####[facility] Mkzqlvbplo75[address] [place] [address]Dr. Charlee Pearson Bacteriodes fragilis Not detected Normal NOT DETECTED [facility] Comment on above: Performed By: #### B CID2 ####[facility] Myvzvdxmko0185 [place] [phone]. Charlee Pearson BCID CONTROLS PASSED Normal [facility] Comment on above: Performed By: #### B CID2 ####[facility] Tieonowuid3758 [place] [phone]. Charlee Michel BCIDBTHD BLOOD CULTURE BOTTLE INFORMATION [facility] Comment on above: Performed By: #### B CID2 ####[facility] Bixuatzqwa4521 [place] [address]Dr. Charlee Pearson BCIDHD1 ANTIMICROBIAL RESISTANCE GENES [facility] Comment on above: Performed By: #### B CID2 ####[facility] Gtlhxspeac0078 [place] [address]Dr. Charlee Pearson BCIDHD2 SEE BELOW [facility] Comment on above: Result Comment: Note : Antimicrobial resitance can occur via multiple mechanisms. A Not Detected result for the [employer] antomicrobial resistance gene assays does not indicate antimicrobial susceptibility. Subculturing is required for species identification and susceptibility testing of isolates. Performed By: #### B CID2 ####[facility] Pgumpwgkcv8584 [place] [address]Dr. Charlee Pearson BCIDHD3 Positive [facility] Comment on above: Performed By: #### B CID2 ####[facility] Iqschnknck0018 [place] [phone]. Charlee Pearson BCIDHD4 Negative [facility] Comment on above: Performed By: #### B CID2 ####[facility] Sytolehxsj1448 [place] [phone]. Charlee Pearson BCIDHD5 YEAST Normal [facility] Comment on above: Performed By: #### B CID2 ####[facility] Mdazfuswlk8504 [place] [address]Dr. Charlee Pearson Bottle Set: Set [address] [facility] Comment on above: Performed By: #### B CID2 ####[facility] Aexgqqkbde[address] [place], [place] [address]Dr. Charlee Pearson Bottle: Aerobic Normal [facility] Comment on above: Performed By: #### B CID2 ####[facility] Ipkavcdvdc[address] [place], [place] [address]Dr. Charlee Pearson C. neoformans/gattii Not detected Normal NOT DETECTED [facility] Comment on above: Performed By: #### B CID2 ####[facility] Fccqwviipj[address] [place], [place] [address]Dr. Charlee Pearson Esperanza albicans Not detected Normal NOT DETECTED [facility] Comment on above: Performed By: #### B CID2 ####[facility] Hidvovwiel[address] [place], [place] [address]Dr. Charlee Pearson Esperanza auris Not detected Normal NOT DETECTED [facility] Comment on above: Performed By: #### B CID2 ####[facility] Ppuutvdjiu278[address] [place], [place] [address]Dr. Charlee Pearson Esperanza glabrata Not detected Normal NOT DETECTED [facility] Comment on above: Performed By: #### B CID2 ####[facility] Nyzjmpcfvv228[address] [place], [place] [address]Dr. Charlee Pearson Esperanza Krusei Not detected Normal NOT DETECTED [facility] Comment on above: Performed By: #### B CID2 ####[facility] Qoaozuwggg[address] [place], [place] [address]Dr. Charlee Pearson Esperanza Parapsilosis Not detected Normal NOT DETECTED [facility] Comment on above: Performed By: #### B CID2 ####[facility] Ihiaqwbqio189[address] [place], [place] [address]Dr. Charlee Pearson Esperanza Tropicalis Not detected Normal NOT DETECTED [facility] Comment on above: Performed By: #### B CID2 ####[facility] Zwkerxqfqd37[address] [place], [place] [address]Dr. Charlee Pearson CTX-M Resistant Gene Not Applicable Normal NOT DETECTE D [facility] Comment on above: Performed By: #### B CID2 ####[facility] Uhdwjowndi45[address] [place], [place] [address]Dr. Charlee Pearson E. Cloacae complex Not detected Normal NOT DETECTED [facility] Comment on above: Performed By: #### B CID2 ####[facility] Wjwneeuwfx0125[address] [place], [place] [address]Dr. Charlee Michel E. faecalis Not detected Normal NOT DETECTED [facility] [place] Comment on above: Performed By: #### B CID2 ####[facility] Rahkwxzaee959[address] [place], [place] [address]Dr. Charlee Peasron E. faecium Not detected Normal NOT DETECTED [facility] Comment on above: Performed By: #### B CID2 ####[facility] Yxjakyafcv415[address] [place], [place] [address]Dr. Charlee Pearson Enterobacteriaceae Not detected Normal NOT DETECTED [facility] Comment on above: Performed By: #### B CID2 ####[facility] Crmmvrjrre287[address] [place], [place] [address]Dr. Charlee Pearson Escherichia coli Not detected Normal NOT DETECTED [facility] Comment on above: Performed By: #### B CID2 ####[facility] Ulrzycbxky37[address] [place], [place] [address]Dr. Charlee Pearson H. influenzae Not detected Normal NOT DETECTED [facility] Comment on above: Performed By: #### B CID2 ####[facility] Ezokvegfrh225[address] [place], [place] [address]Dr. Charlee Pearson IMP Resistant Gene Not Applicable Normal NOT DETECTED [facility] Comment on above: Performed By: #### B CID2 ####[facility] Bgbbjnoxho423[address] [place], [place] [address]Dr. Charlee Pearson K. oxytoca Not detected Normal NOT DETECTED [facility] Comment on above: Performed By: #### B CID2 ####[facility] Lfjmujxnis915[address] [place], [place] [address]Dr. Charlee Pearson K. pneumoniae Not detected Normal NOT DETECTED [facility] Comment on above: Performed By: #### B CID2 ####[facility] Iyzhckjifw[address] [place], [place] [address]Dr. Charlee Pearson Klebsiella aerogenes Not detected Normal NOT DETECTED [facility] Comment on above: Performed By: #### B CID2 ####[facility] Azngrgbwlj76[address] [place], [place] [address]Dr. Charlee Pearson KPC Resistant Gene Not Applicable Normal NOT DETECTED [facility] Comment on above: Performed By: #### B CID2 ####[facility] Eqdsbreurb[address] [place], [place] [address]Dr. Charlee Pearson List. monocytogenes Not detected Normal NOT DETECTED T [facility] Comment on above: Performed By: #### B CID2 ####[facility] Qnsmvytlkm874[address] [place], [place] [address]Dr. Charlee Michel Mcr-1 Resistant Gene Not Applicable Normal NOT DETECTE D [facility] Comment on above: Performed By: #### B CID2 ####[facility] Dokfwkmnku313[address] [place], [place] [address]Dr. Charlee Pearson mecA/C Not detected Normal NOT DETECTED [facility] Comment on above: Performed By: #### B CID2 ####[facility] Uxlxiyihcx[address] [place], [place] [address]Dr. Charlee Pearson mecA/C MREJ Not Applicable Normal NOT DETECTED [facility] Comment on above: Performed By: #### B CID2 ####[facility] Fqqtdiuoho060[address] [place], [place] [address]Dr. Charlee Michel N. meningitidis Not detected Normal NOT DETECTED [facility] Comment on above: Performed By: #### B CID2 ####[facility] Ltohjstbpl[address] [place], [place] [address]Dr. Charlee Michel NDM Resistant Gene Not Applicable Normal NOT DETECTED [facility] Comment on above: Performed By: #### B CID2 ####[facility] Wbhahemoeu384[address] [place], [place] [address]Dr. Charlee Michel Oxa-48-like Not Applicable Normal NOT DETECTED [facility] Comment on above: Performed By: #### B CID2 ####[facility] Ttykwoocnl1316 [place] [address]Dr. Charlee Pearson Proteus Not detected Normal NOT DETECTED [facility] Comment on above: Performed By: #### B CID2 ####[facility] Iorwlkffoa[address] [place], [place] [address]Dr. Charlee Pearson Pseud. aeruginosa Not detected Normal NOT DETECTED [facility] Comment on above: Performed By: #### B CID2 ####[facility] Knwbexvayl[address] [place], [place] [address]Dr. Charlee Pearson S. maltophilia Not detected Normal NOT DETECTED [facility] Comment on above: Performed By: #### B CID2 ####[facility] Sgixrhbnym706[address] [place], [place] [address]Dr. Charlee Pearson Salmonella Not detected Normal NOT DETECTED [facility] Comment on above: Performed By: #### B CID2 ####[facility] Ywrtmesfqt[address] [place], [place] [address]Dr. Charlee Pearson Seratia marcescens Not detected Normal NOT DETECTED [facility] Comment on above: Performed By: #### B CID2 ####[facility] Rmrhywhdxq[address] [place], [place] [address]Dr. Charlee Pearson Site: left arm Normal [facility] Comment on above: Performed By: #### B CID2 ####[facility] Fbwhvmampy[address] [place], [place] [address]Dr. Charlee Pearson Staph. aureus Not detected Normal NOT DETECTED [facility] Comment on above: Performed By: #### B CID2 ####[facility] Zxvgicdtku256[address] [place], [place] [address]Dr. Charlee Pearson Staph. epidermidis Detected Abnormal NOT DETECTED [facility] Comment on above: Performed By: #### B CID2 ####[facility] Joeidykjpf[address] [place], [place] [address]Dr. Charlee Pearson Staph. lugdunensis Not detected Normal NOT DETECTED [facility] Comment on above: Performed By: #### B CID2 ####[facility] Guixunfepf[address] [place], [place] [address]Dr. Charlee Pearson Staphylococcus Detected Abnormal NOT DETECTED [facility] Comment on above: Performed By: #### B CID2 ####[facility] Kimnhknynx409[address] [place], [place] [address]Dr. Charlee Pearson Strep. agalactiae Not detected Normal NOT DETECTED [facility] Comment on above: Performed By: #### B CID2 ####[facility] Mlclttmxmk38[address] [place], [place] [address]Dr. Charlee Pearson Strep. pneumoniae Not detected Normal NOT DETECTED [facility] Comment on above: Performed By: #### B CID2 ####[facility] Tivhuodoyw[address] [place], [place] [address]Dr. Charlee Pearson Strep. pyogenes Not detected Normal NOT DETECTED [facility] Comment on above: Performed By: #### B CID2 ####[facility] Otumqmpdyr270[address] [place], [place] [address]Dr. Charlee Pearson Streptococcus Not detected Normal NOT DETECTED [facility] Comment on above: Performed By: #### B CID2 ####[facility] Bysvtfxkdj423[address] [place], [place] [address]Dr. Charlee Pearson Lulu/B Resist. Gene Not Applicable Normal NOT DETECTED [facility] Comment on above: Performed By: #### B CID2 ####[facility] Xspvifwgpl708[address] [place], [place] [address]Dr. Charlee Pearson VIM Resistant Gene Not Applicable Normal NOT DETECTED [facility] Comment on above: Performed By: #### B CID2 ####[facility] Quzmuyrnoy[address] [place], [place] [address]Dr. Charlee Pearson CBC W MANUAL DIFFon 03-18-20 22 ATYPICAL LYMPH # Normal [facility] Comment on above: Performed By: #### C BCMAN ####[facility] Ieqogbecoz647[address] [place], [place] [address]Dr. Charlee Pearson ATYPICAL LYMPH % Normal [facility] Comment on above: Performed By: #### C BCMAN ####[facility] Etrzsuchwr656[address] [place], [place] [address]Dr. Yilan Pearson BAND # Normal 0.0-0.3 [facility] Comment on above: Performed By: #### C BCMAN ####[facility] Hbtqmzlmib4[address] [place] [address]Dr. Yilan Pearson BAND % Normal 0-[address] [facility] Comment on above: Performed By: #### C KERRIE ####[facility] Yjhvucpibi4125 [place] [id number]. Yilan Pearson BASOM # 0.00 103/ul Normal 0.00-0.[address] [facility] Comment on above: Performed By: #### C BCJARON ####[facility] Azevqjvxsd5725 [place] [address]Dr. Yilan Pearson BASOM % 0.0 % Critically low 0.2-2.0 [facility] Comment on above: Performed By: #### C KERRIE ####[facility] [address]uiuqvrgsk[address] [place], [place] [address]Dr. Yilan Pearson BLAST # Normal [facility] Comment on above: Performed By: #### C KERRIE ####[facility] Dldouftqti2027 [place] [address]Dr. Yilan Pearson BLAST % Normal [facility] Comment on above: Performed By: #### C KERRIE ####[facility] Uxkdswmaor9[address] [place] [address]Dr. Charlee Pearson CORRECTED WBC Normal 4.0-11.0 [facility] Comment on above: Performed By: #### C BCJARON ####[facility] Ktzsmispgt3609 [place] [address]Dr. Yiclaudette Pearson EOS # 0.00 103/ul Normal 0.00-0.[address] [facility] Comment on above: Performed By: #### C KERRIE ####[facility] Flxxolrjar[address] [place], [place] [address]Dr. Charlee Pearson EOS% 0.0 % Critically low 0.9-7.0 [facility] Comment on above: Performed By: #### C KERRIE ####[facility] Nbsjabfrfn[address] [place], [place] [address]Dr. Yilan Pearson HCT 42.8 % Normal 36.0-48.0 [facility] Comment on above: Performed By: #### C KERRIE ####[facility] Hxdpgncodb1377 [place], [place] [address]Xk. Charlee Pearson HGB 14.4 g/dl Normal 12.0-16.0 [facility] Comment on above: Performed By: #### C KERRIE ####[facility] Kapsfsrcqq4449 [place] [id number]. Charlee Pearson LYMPHM # 1.43 103/ul Normal 1.20-3.[address] [facility] Comment on above: Performed By: #### C KERRIE ####[facility] [address] [place] [id number]. Charlee Pearson LYMPHM% 5.0 % Critically low 20.5-60.0 [facility] Comment on above: Performed By: #### C KERRIE ####[facility] Slcnyjrptw[address] [place] [id number]. Charlee Pearson MCH 31.8 pg Normal 26.7-34.0 [facility] Comment on above: Performed By: #### Jenny SY ####[facility] [address] [place] [id number]. Charlee Pearson MCHC 33.6 g/dl Normal 29.9-35.2 [facility] Comment on above: Performed By: #### Jenny SY ####[facility] F[address]fj[address] [place] [id number]. Charlee Pearson MCV 94.5 fL Normal 81.0-99.[address] [facility] Comment on above: Performed By: #### C KERRIE ####[facility] [address] [place], [place] [address]Vh. Charlee Pearson METAMYELOCYTE # Normal [facility] [place] Comment on above: Performed By: #### C KERRIE ####[facility] [address]uz[address] [place], [place] [address]Ak. Charlee Pearson METAMYELOCYTE % Normal [facility] [place] Comment on above: Performed By: #### C KERRIE ####[facility] Didnmsxkmg3994 [place], [place] [address]Cg. Charlee Pearson MONOM# 1.43 103/ul Critically high 0.30-0.80 [facility] Comment on above: Performed By: #### C KERRIE ####[facility] [address]xcamj[address] [place], [place] [address]Hi. Charlee Pearson MONOM% 5.0 % Normal 1.7-12.0 [facility] Comment on above: Performed By: #### C KERRIE ####[facility] [address] [place], [place] [address]Cn. Charlee Pearson MPV 9.2 fL Critically low 9.5-13.5 [facility] Comment on above: Performed By: #### C KERRIE ####[facility] [address] [place] [id number]. Charlee Pearson MYELOCYTE # Normal [facility] Comment on above: Performed By: #### Jenny SY ####[facility] [address]cthwx[address] [place] [id number]. Charlee Pearson MYELOCYTE % Normal [facility] Comment on above: Performed By: #### Jenny SY ####[facility] [address]hdxlq[address] [place] [phone]. Charlee Pearson NRBC Normal [facility] Comment on above: Performed By: #### Jenny SY ####[facility] Cmsmozcefc50[address] [place] [phone]. Charlee Pearson PLT 262 103/ul Normal 150-[address] [facility] Comment on above: Performed By: #### C KERRIE ####[facility] Zlljqbgqto67[address] [place] [phone]. Charlee Pearson RBC 4.53 106/ul Normal 4.20-5.[address] [facility] Comment on above: Performed By: #### C KERRIE ####[facility] [address]ysmeddsy[address] [place] [id number]. Charlee Pearson RDW 12.9 % Normal 11.0-15.[address] [facility] Comment on above: Performed By: #### C KERRIE ####[facility] [address]r16[address] [place], [place] [address]Cc. Charlee Pearson SEG # 25.65 103/ul Critically high 1.40-6.50 [facility] Comment on above: Performed By: #### C BCMAN ####[facility] [address]zynpb[address] [place], [place] [address]Rt. Charlee Pearson SEG % 90.0 % Critically high 43.0-75.0 [facility] [place] Comment on above: Performed By: #### C BCMAN ####[facility] P[address]wbslsaw5[address] [place], [place] [address]Tb. Charlee Pearson WBC 28.5 103/ul Critically high 4.0-11.0 [facility] Comment on above: Performed By: #### C BCMAN ####[facility] Em[address]ialm5[address] [place], [place] [address]Ok. Charlee Pearson CULTURE BLOODon 03-18-2022 Microscopic examination of blood, culture Culture Observations: YENNY TO FOLLOW. Isolate 1 Staphylococcus epidermidis Normal [facility] Comment on above: Performed By: #### B LDCX2 ####[facility] [address]tp[address] [place], [place] [address]Xb. Charlee Pearson Microscopic examination of blood, culture Culture Observations: NO GROWTH AT [address] [facility] Comment on above: Performed By: #### B LDCX1 ####[facility] [address]dsbnbigcb30[address] [place], [place] [address]Od. Charlee Pearson Covid-19 PCR (CVDTB)on 02-23 SARS-CoV-2 (COVID-19) RNA LORENZO+probe Ql (Unsp spec) Not detected Normal NOT DETECTED [facility] Comment on above: Result Comment: When diagnostic testing is negative, the possibility of a false negative should be considered inthe context of a patient's recent exposures and the presence of clinical signs and symptomsconsistent with SARS-CoV-2.This test is not yet approved or cleared by the [place] FDA. When there are no FDA-approved or cleared tests available, and other criteria are met, FDA can make tests available under an emergency access mechanism called an Emergency Use Authorization (EUA). The EUA for this test is supported by the [place] of Health and Human Service's declaration that circumstances exist to justify the emergency use of in vitro diagnostics for the detection and/or diagnosis of the virus that causes COVID-19. This EUA will remain in effect for the duration of the COVID-19 declaration justifying emergency of IVDs, unless it is terminated or revoked by the FDA (after which the test may no longer be used). Performed By: #### C VDTBH ####[facility] Esqks[address]kw[address] [place], [place] [address]Dr. Charlee Pearson LACTATE/LACTIC ACIDon 2021 Lactate [Moles/Vol] 1.4 mmol/L Normal 0.4-1.9 [facility] Comment on above: Performed By: #### L ACT ####[facility] [address] [place], [place] [address]Dr. Charlee Pearson Lactate [Moles/Vol] 1.8 mmol/L Normal 0.4-1.9 [facility] Comment on above: Performed By: #### L ACT ####[facility] [address] [place], [place] [address]Dr. Charlee Pearson PROF 14(COMP METB)on 022 Albumin [Mass/Vol] 3.9 g/dL Normal 3.4-5.0 [facility] Comment on above: Performed By: #### C MP ####[facility] [address] [place], [place] [address]Dr. Charlee Pearson Albumin/Globulin [Mass ratio] 0.8 {ratio} Normal [facility] Comment on above: Performed By: #### C MP ####[facility] [address] [place], [place] [address]Dr. Charlee Pearson ALP [Catalytic activity/Vol] 88 U/L Normal 46-[address] [facility] Comment on above: Performed By: #### C MP ####[facility] Ac[address] [place], [place] [address]Dr. Charlee Pearson ALT [Catalytic activity/Vol] 37 U/L Normal 14-59 [facility] Comment on above: Performed By: #### C MP ####[facility] X[address]rzmsczo24[address] [place] [phone]. Charlee Pearson Anion gap [Moles/Vol] 16.2 mmol/L Normal [facility] Comment on above: Performed By: #### C MP ####[facility] Orxq[address]gzwll67[address] [place] [phone]. Charlee Pearson AST [Catalytic activity/Vol] 44 U/L Critically high 15-37 [facility] Comment on above: Performed By: #### C MP ####[facility] Yy[address]fyuqmk[address] [place] [phone]. Charlee Pearson Bilirubin [Mass/Vol] 0.6 mg/dL Normal 0.2-1.0 [facility] Comment on above: Performed By: #### C MP ####[facility] [address]zveeko[address] [place] [phone]. Charlee Pearson Calcium [Mass/Vol] 9.4 mg/dL Normal 8.5-10.1 [facility] Comment on above: Performed By: #### C MP ####[facility] [address]vjigbg[address] [place] [phone]. Charlee Pearson Chloride [Moles/Vol] 93 mmol/L Critically low 98-107 [facility] Comment on above: Performed By: #### C MP ####[facility] [address]av[address]ytqmt45[address] [place] [phone]. Charlee Pearson CO2 [Moles/Vol] 25.1 mmol/L Normal 21.0-32.0 [facility] Comment on above: Performed By: #### C MP ####[facility] [address]thuo[address] [place] [phone]. Charlee Pearson Creatinine [Mass/Vol] 0.74 mg/dL Normal 0.55-1.02 [facility] Comment on above: Performed By: #### C MP ####[facility] [address]ew[address] [place] [phone]. Charlee Pearson EGFR-AF MICRONESIAN >60 Normal >=60 [facility] Comment on above: Performed By: #### C MP ####[facility] [address] [place] [address]Dr. Charlee Pearson EGFR-NON AF MICRONESIAN >60 Normal >=60 [facility] Comment on above: Performed By: #### C MP ####[facility] [address] [place] [address]Dr. Charlee Pearson Globulin (S) [Mass/Vol] 4.8 g/dL Normal [facility] Comment on above: Performed By: #### C MP ####[facility] [address] [place] [address]Dr. Charlee Pearson Glucose [Mass/Vol] 106 mg/dL Normal 74-106 [facility] Comment on above: Performed By: #### C MP ####[facility] [address] [place], [place] [address]Dr. Charlee Pearson Potassium [Moles/Vol] 4.3 mmol/L Normal 3.5-5.1 [facility] Comment on above: Performed By: #### C MP ####[facility] [address] [place], [place] [address]Dr. Charlee Pearson Protein [Mass/Vol] 8.7 g/dL Critically high 6.4-8.2 [facility] Comment on above: Performed By: #### C MP ####[facility] [address] [place], [place] [address]Dr. Charlee Pearson Sodium [Moles/Vol] 130 mmol/L Critically low 136-145 [facility] Comment on above: Performed By: #### C MP ####[facility] [address] [place], [place] [address]Dr. Charlee Pearson Urea nitrogen [Mass/Vol] 9.0 mg/dL Normal 7.0-18.0 [facility] Comment on above: Performed By: #### C MP ####[facility] [address] [place], [place] [address]Dr. Charlee Pearson Urea nitrogen/Creatinine [Mass ratio] 12.2 mg/mg Normal [facility] Comment on above: Performed By: #### C MP ####[facility] [address] [place], [place] [address]DrOttoniel Pearson XR CHEST 1 Von 03-18-2022 XR CHEST 1 V Normal [facility] Vital Signs Date Time Vital Sign Value Performing Clinician Facility 08-15-2023 14:15-0500 Body height 157.48 cm Allyssa Martellcastillo Other [facility] Other 08-15-2023 14:15-0500 Body mass index (BMI) [Ratio] 21.07 kg/m2 Allyssa Martellcastillo Other [facility] Other 08-15-2023 14:15-0500 Body temperature 97 [degF] Allyssa Martellcastillo Other [facility] Other 08-15-2023 14:15-0500 Body weight 52.25 kg Allyssa Martellcastillo Other [facility] Other 08-15-2023 14:15-0500 Diastolic blood pressure 80 mm[Hg] Allyssa Martellcastillo Other [facility] Other 08-15-2023 14:15-0500 Respiratory rate 20 /min Allyssa Martellcastillo Other [facility] Other 08-15-2023 14:15-0500 SaO2% (BldA) [Mass fraction] Allyssa Martellcastillo Other [facility] Other 08-15-2023 14:15-0500 Systolic blood pressure 122 mm[Hg] Allyssa Martellcastillo Other [facility] Other 08-15-2022 16:30-0500 Body height 157.48 cm Allyssa Martellcastillo Other [facility] Other 08-15-2022 16:30-0500 Body mass index (BMI) [Ratio] 19.31 kg/m2 Allyssa Martellban Other [facility] Other 08-15-2022 16:30-0500 Body temperature 97 [degF] Allyssa Martellban Other [facility] Other 08-15-2022 16:30-0500 Body weight 47.9 kg Allyssa Martellban Other [facility] Other 08-15-2022 16:30-0500 Diastolic blood pressure 84 mm[Hg] Allyssa Chaban Other [facility] Other 08-15-2022 16:30-0500 Respiratory rate 20 /min Allyssa Martellban Other [facility] Other 08-15-2022 16:30-0500 SaO2% (BldA) [Mass fraction] Allyssa Martellban Other [facility] Other 08-15-2022 16:30-0500 Systolic blood pressure 128 mm[Hg] Allyssa Martellban Other [facility] Other 05-10-2022 16:30-0400 Body height 157.48 cm Allyssa Martellban Other [facility] Other 05-10-2022 16:30-0400 Body mass index (BMI) [Ratio] 19.31 kg/m2 Allyssa Martellban Other [facility] Other 05-10-2022 16:30-0400 Body temperature 96.9 [degF] Allyssa Martellban Other [facility] Other 05-10-2022 16:30-0400 Body weight 47.9 kg Allyssa Moreno Other [facility] Other 05-10-2022 16:30-0400 Diastolic blood pressure 72 mm[Hg] Allyssa Martellban Other [facility] Other 05-10-2022 16:30-0400 Respiratory rate 20 /min Allyssa Martellban Other [facility] Other 05-10-2022 16:30-0400 SaO2% (BldA) [Mass fraction] Allyssa Martellban Other [facility] Other 05-10-2022 16:30-0400 Systolic blood pressure 100 mm[Hg] Allyssa Martellban Other [facility] Other 01-02-2022 11:30-0400 Body height 157.48 cm Allyssa Moreno Other [facility] Other 01-02-2022 11:30-0400 Body mass index (BMI) [Ratio] 21.4 kg/m2 Allyssa Moreno Other [facility] Other 01-02-2022 11:30-0400 Body temperature 97 [degF] Allyssa Martellban Other [facility] Other 01-02-2022 11:30-0400 Body weight 53.07 kg Allyssa Martellban Other [facility] Other 01-02-2022 11:30-0400 Diastolic blood pressure 88 mm[Hg] Allyssa Martellban Other [facility] Other 01-02-2022 11:30-0400 Respiratory rate 20 /min Allyssa Martellban Other [facility] Other 01-02-2022 11:30-0400 SaO2% (BldA) [Mass fraction] 94 % Allyssa Martellban Other [facility] Other 01-02-2022 11:30-0400 Systolic blood pressure 124 mm[Hg] Allyssa Chaban Other [facility] Other Encounters Encounter Date Encounter Type Care Provider Facility Start: 02-20-2024 End: 02-20-2024 ambulatory DANIEL LOPEZ Not Available Start: 11-21-2023 End: 11-21-2023 ambulatory DANIEL LOPEZ Not Available Start: 09-20-2023 End: 09-20-2023 ambulatory DANIEL LOPEZ Not Available Start: 08-15-2023 End: 08-15-2023 ambulatory Kamal Chaban Other [facility] Other Start: 08-15-2023 Office outpatient vi sit 15 minutes Kamal Chaban [facility] Start: 02-07-2023 ambulatory LOPEZ Facility:H 1 Start: 01-22-2023 End: 01-23-2023 ambulatory DANIEL LOPEZ Facility:H1 Start: 12-28-2022 End: 12-29-2022 ambulatory DANIEL LOPEZ Facility:H1 Start: 08-15-2022 End: 08-15-2022 ambulatory Kamal Chaban Other [facility] Other Start: 08-15-2022 Office outpatient vi sit 25 minutes Kamal Chaban [facility] Start: 08-14-2022 End: 08-15-2022 ambulatory DANIEL LOPEZ Facility:[facility]1 Start: 05-10-2022 End: 05-10-2022 ambulatory Kamal Chaban Other [facility] Other Start: 05-10-2022 Office outpatient vi sit 25 minutes Allyssa Moreno [facility] Start: 05-01-2022 End: 05-02-2022 ambulatory AJ LOPEZ Facility:H1 Start: 04-17-2022 End: 04-18-2022 Evaluation and management of inpatient AJ LOPEZ Facility:H1 Start: 03-30-2022 ambulatory LOPEZ Facility:H 1 Start: 03-19-2022 End: 03-30-2022 Evaluation and management of inpatient DR ISABELLA LEVY . Facility:H1 Start: 01-02-2022 End: 01-02-2022 ambulatory Allyssa Moreno Other [facility] Other Start: 01-02-2022 Office outpatient ne w 45 minutes Allyssa Moreno [facility] Procedures Date Procedure Procedure Detail Performing Clinician Start: 03-22-2022 Drainage of Left Upp er Lung Lobe, Via Natural or Artificial Opening Endoscopic, Diagnostic DANIEL LOPEZ Start: 03-22-2022 Assistance with Resp iratory Ventilation, Less than 24 Consecutive Hours, Continuous Positive Airway Pressure DANIEL LOPEZ Immunizations Immunization Date Immunization Notes Care Provider Fa cili 08-25-2021 COVID-19 Vaccine Pfi zer - Documentation Purposes Only Allyssa Martellcastillo Other [facility] Other 01-03-2021 COVID-19 Vaccine Pfi zer - Documentation Purposes Only Jdanthony Martellcastillo Other [facility] Other 12-11-2020 COVID-19 Vaccine Pfi zer - Documentation Purposes Only Allyssa Martellcastillo Other [facility] Other Payers Date Payer Category Payer Medicare [id number] 2. [id number] 1958 Self-pay [id number] 1958 Unknown [id number] 1955 Unknown [id number] 2.16.84 [id number] 1955 Unknown [id number] 2.16.84 [id number] 1955 Unknown [id number] 2.16.84 [id number] 1956 Unknown [id number] 2.16.84 [id number] 1956 Unknown [id number] 2.16.84 [id number] 1956 Unknown [id number] 2.16.84 [id number] 1956 Unknown [id number] 2.16.84 [id number] 1956 Unknown [id number] 2.16.84 0.1.628050.3.579.2.593 1956 Unknown [id number] 2.16.84 0.1.278882.3.579.2.1259 1956 Unknown [id number] 2.16.84 [id number] 1956 Unknown [id number] 2.16.840 .[id number] Social History Date Type Detail Facility Sex Assigned At [facility] Other Evaluation note 08-15-2023 Note Date & Type Note Facility 08-15-2023 Evaluation note Encounter Date Diagnosis Assessment Notes Jul, Very severe chronic obstructive pulmonary disease (ICD-10 - J44.9) Discussed the severity of her lung disease, encouraged her to continue regular use of maintenance inhalers, but most importantly discussed the importance of exercise and rehabilitation . Patient will continue to follow-up with her primary care physician, she can call for follow-up anytime Jul, Recurrent pneumonia (ICD-10 - J18.9) [facility] Other Evaluation note 08-15-2022 Note Date & Type Note Facility 08-15-2022 Evaluation note Encounter Date Diagnosis Assessment Notes Jul, Very severe chronic obstructive pulmonary disease (ICD-10 - J44.9) Discussed management of COPD today at length, in addition to aggressive therapy she is on asked her to attempt exercising, walking, or any form of exercise suitable to her to improve her exercise tolerance. 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) Jul, History of recent pneumonia (ICD-10 - Z87.01) [facility] Other Evaluation note 05-10-2022 Note Date & Type Note Facility 05-10-2022 Evaluation note Encounter Date Diagnosis Assessment Notes Apr, Very severe chronic obstructive pulmonary disease (ICD-10 - J44.9) Apr, Lung nodules (ICD-10 - R91.8) CT chest in 3 months before next visit Apr, History of recent pneumonia (ICD-10 - Z87.01) [facility] Other Evaluation note 01-02-2022 Note Date & Type Note Facility 01-02-2022 Evaluation note Encounter Date Diagnosis Assessment Notes Dec, Lung nodules (ICD-10 - R91.8) Dec, 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 Hospitalization History breathing issues, severa l times [phone] Hospitalization History COPD [facility] Other History general Narrative - Reported Note Date & Type Note Facility History general Narrative - Reported Type Medical History copd Medical History hypothyroid Medical History RA Medical History sleep apnea Surgical History hysterectomy abdominal Surgical History C section Surgical History lumpectomy, left breast Surgical History right thum fused Surgical History growth removed from right heel. Hospitalization History breathing issues, [place] times [phone] Hospitalization History COPD Hospitalization History Colitis /Pneumonia [facility]2022 [place] [facility] Other Summary Purpose Family History No Family History Records FoundNo Family History Records Found Advance Directives No Advanced Directives Records FoundNo Advanced Directives Records Found Additional Source Comments REASON FOR VISIT (unrecogniz ed section and content) Ref: Dr. Daniel Lopez- Pulmo nary Nodule and Rheumatoid lung disease3 month Follow up3 mo f/u COPD, Lung Nodule, Hx of Pneumonia6 mo f/u Recurrent Pneumonia, Pulm Nodules, COPD INFORMATION SOURCE (unrecogn ized section and content) DATE CREATED AUTHOR 02/07/2023 [facility]ital DATE CREATED AUTHOR AUTHOR'S ORGANIZ ATION 02/21/2024 [facility] EPIC FOR RECORDS PERTAINING TO PATIENTS WHO ARE OR HAVE BEEN ENROLLED IN A CHEMICAL DEPENDENCY/SUBSTANCEABUSE PROGRAM, SOME INFORMATION MAY BE OMITTED. This clinical summary was aggregated from multiple sources. Caution should be exercised in using it in the provision of clinical care. This summary normalizes information from multiple sources, and as a consequence, information in this document may materially change the coding, format and clinical context of patient data. In addition, data may be omitted in some cases. CLINICAL DECISIONS SHOULD BE BASED ON THE PRIMARY CLINICAL RECORDS. [employer] provides no warranty or guarantee of the accuracy or completeness of information in this document.
== END 2024-03-07 12:33 | disposition home or self-care (01) ==
LOC: RAD 12:33
PROVIDERS: PCP Internal Medicine; Visit Provider Internal Medicine
DX: E28.39 Other primary ovarian failure (principal); I48.0 Paroxysmal atrial fibrillation; M81.0 Age-related osteoporosis without current pathological fracture
CPT/HCPCS: 77080; 93246

== ENCOUNTER 2024-06-06 18:25 | Emergency (ER) | payer MEDICARE, OTHER, SELFPAY ==
[2024-06-06 18:28] VITALS: BP 152/92; PULSE 104; TEMP 36.9; O2SAT 94; BMI 21.5
--- OUTSIDE RECORDS SUMMARY | 2024-06-06 18:31 | XMS_ITS | CCD ---
Author Organization [facility] CliniSysd Care Team Providers Care Accounting Associate Name Role Phone Allyssa Moreno Unavailable DANIEL LOPEZ Primary Care Unavailable JOSH, DR BONILLA Attending Unavailable JOSH, DR BONILLA Consulting Unavailable JOSH, DR BONILLA Admitting Unavailable DANIEL LOPEZ Consulting Unavailable DANIEL LOPEZ Attending Unavailable DANIEL LPOEZ Admitting Unavailable DANIEL LOPEZ Primary Care Unavailable TRICIA OZUNA Consulting Unavailable DANIEL LOPEZ Primary Care Unavailable DANIEL LOPEZ Consulting Unavailable DANIEL LOPEZ Attending Unavailable DANIEL LOPEZ Admitting Unavailable NIKKI WHITE Consulting Unavailable DANIEL LOPEZ Primary Care Unavailable CHABAN, DR BONILLA Attending Unavailable JOSH, DR BONILLA Admitting Unavailable ZINORBERT, DR WESTLEY [place] Consulting Unavailable CHACASTILLO, DR BONILLA Consulting Unavailable DANIEL LOPEZ Consulting Unavailable DANIEL LOPEZ Attending Unavailable DANIEL LOPEZ Admitting Unavailable DANIEL LOPEZ Primary Care Unavailable DANIEL LOPEZ Primary Care Unavailable CHABAN, DR BONILLA Admitting Unavailable CHACASTILLO, DR BONILLA Attending Unavailable DANIEL LOPEZ Primary [...] LOPEZ Attending Unavailable DANIEL LOPEZ Attending Unavailable HUNTER HUMPHREYS Attending Unavailable DANIEL LOPEZ Primary Care Unavailable HUNTER HUMPHREYS Referring Unavailable DANIEL LOPEZ Primary Care Unavailable Allergies Allergy Classification Reported Allergen(s) Allergy Type Date of Onset Reaction(s) Facility (2 sources) buPROPion; Translations: [BUPROPION HCL] Drug Allergy 04-28-2024 [facility] 3 Repository Medications Current Medications Medication Drug Class(es) Dates Sig (Normalized) Sig (Original) acetaminophen 300 mg / codeine phosphate 30 mg oral tablet (4 sources) Opioid Agonist take 1 tablet by mouth every six hours Acetaminophen-Code ine 300-30 MG 1 tablet as needed Orally every 6 hrs Active [id number] 200 actuat albuterol 0.09 mg/actuat metered dose [...] Problem Classification Problem Date Documented Date Episodic/Chronic Administrative/social admission (2 sources) Person consulting for explanation of examination or test findings; Translations: [Person consulting for explanation of examination or test findings] Onset: 04-28-2024 Episodic Cardiac dysrhythmias (5 sources) Unspecified atrial fibrillation; Translations: [Paroxysmal atrial fibrillation] Onset: 04-26-2022 Chronic Chronic obstructive pulmonary disease and bronchiectasis (18 sources) Chronic obstructive lung disease; Translations: [Chronic obstructive pulmonary disease, unspecified] Onset: 01-02-2022 Resolved: 05-10-2022 Chronic Conditions associated with dizziness or vertigo (4 sources) Dizziness and giddiness; Translations: [Dizziness and giddiness] Onset: 04-28-2024 Episodic Disorders of lipid metabolism (2 sources) Pure hypercholesterolemia , unspecified; Translations: [Pure hypercholesterolemia , unspecified] Onset: 04-28-2024 Chronic Mood disorders (1 source) Major depressive disorder, single episode, unspecified; Translations: [CHETAN DEPRESS D/O SINGLE EPIS UNS] Onset: 04-26-2022 Chronic Nonspecific chest pain (1 source) Chest pain, unspecified; Translations: [CHEST PAIN UNSPECIFIED] Onset: 01-25-2023 Episodic Nutritional deficiencies (1 source) Moderate protein-calorie malnutrition; Translations: [MODERATE PROTEIN-CALORIE MLNUTRIT] Onset: 04-10-2022 Chronic Other connective tissue disease (4 sources) Myalgia, unspecified site; Translations: [Myalgia, unspecified site] Onset: 04-28-2024 Episodic Other endocrine disorders (1 source) Syndrome of inappropriate secretion of antidiuretic hormone; Translations: [SYNDROME INAPPROPRIATE SEC ADH] Onset: 04-26-2022 Chronic Other injuries and conditions due to external causes (2 sources) History of falling; Translations: [History of falling] Onset: 04-28-2024 Episodic Other liver diseases (1 source) Chronic passive congestion of liver; Translations: [CHRONIC PASSIVE CONGESTION OF LIVER] Onset: 04-10-2022 Chronic Other lower respiratory disease (2 sources) Other disorders of lung Onset: 01-02-2022 Resolved: 01-02-2022 Episodic Other lower respiratory disease (4 sources) Shortness of breath; Translations: [SHORTNESS OF BREATH] Onset: 01-22-2023 Episodic Other screening for suspected conditions (not mental disorders or infectious disease) (6 sources) Abnormal findings on diagnostic imaging of other abdominal regions, including retroperitoneum; Translations: [Other specified abnormal findings of blood chemistry] Onset: 04-10-2022 Episodic Pneumonia (except that caused by tuberculosis or sexually transmitted disease) (2 sources) Pneumonia, unspecified organism; Translations: [PNEUMONIA UNSPECIFIED ORGANISM] Onset: 04-10-2022 Episodic Residual codes; unclassified (1 source) Sleep apnea, unspecified; Translations: [SLEEP APNEA UNSPECIFIED] Onset: 04-26-2022 Chronic Respiratory failure; insufficiency; arrest (adult) (5 sources) Chronic respiratory failure with hypoxia; Translations: [Dependence on supplemental oxygen] Onset: 04-10-2022 Chronic Rheumatoid arthritis and related disease (1 source) Rheumatoid arthritis, unspecified; Translations: [RHEUMATOID ARTHRITIS UNSPECIFIED] Onset: 04-26-2022 Chronic Screening and history of mental health and substance abuse codes (3 sources) Personal history of nicotine dependence; Translations: [PERSONAL HISTORY OF NICOTINE DEPEND] Onset: 04-26-2022 Episodic Substance-related disorders (1 source) Nicotine dependence, cigarettes, uncomplicated; Translations: [NICOTINE DEPEND CIGARETTES UNCOMP] Onset: 04-10-2022 Chronic Thyroid disorders (3 sources) Hypothyroidism, unspecified; Translations: [HYPOTHYROIDISM UNSPECIFIED] Onset: 04-26-2022 [...] 04-26-2022 Episodic Other aftercare (1 source) 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; Translations: [OTH APPLIANCE LINE ASSEMBLER CURRENT DRUG THERAPY] Onset: 04-26-2022 Episodic Other aftercare (1 source) 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; Translations: [APPLIANCE LINE ASSEMBLER CURRNT USE ANTICOAGULANTS] Onset: 04-26-2022 Episodic Other [...] source) Hemoptysis; Translations: [HEMOPTYSIS] Onset: 04-10-2022 Episodic Residual codes; unclassified (1 source) Tobacco use Onset: 01-02-2022 Resolved: 01-02-2022 Episodic Residual codes; unclassified (1 source) Acquired absence of both cervix and uterus; Translations: [ACQUIRED ABSENCE BOTH CERVIX AND UTERUS] Onset: 04-26-2022 Episodic Residual codes; unclassified (1 source) Body mass index (BMI) 20.0-20.9, adult; Translations: [BODY MASS INDEX BMI 20.0-20.9 ADULT] Onset: 04-10-2022 Episodic Septicemia (except in labor) (4 sources) Sepsis, unspecified organism; Translations: [Severe sepsis without septic shock] Onset: 03-19-2022 Episodic Superficial injury; contusion (1 source) Contusion of abdominal wall, initial encounter; Translations: [CONTUSION ABDOMINAL WALL INITIAL] Onset: 04-26-2022 Episodic Results Test Name Value Interpretation Reference Range Facility TRANSTHORACIC ECHO (TTE) [facility] PLETEon 06-03-2024 TRANSTHORACIC ECHO (TTE) COMPLETE [address], [address], [place] [address] TRANSTHORACIC ECHOCARDIOGRAM REPORT Patient Name: LILLIAM POSEYCHANTALPreet Reading Physician: [id number] Soren Donovan MD Study Date: 06/03/2024 Ordering Provider: [id number] HUNTER HUMPHREYS MRN/PID: [id number] Fellow: Nurse: Date of /Age: 805/18/1955 / 69 years Beadworker: Ruma Rivas RDCS, RVT Gender: F Additional Staff: Height: 154.94 cm Admit Date: Weight: 57.61 kg Admission Status: BSA / BMI: 1.56 m2 / 24.00 kg/m2 Department Location: [facility] Blood Pressure: 150 /94 mmHg Study Type: TRANSTHORACIC ECHO (TTE) COMPLETE Diagnosis/ICD: Paroxysmal atrial fibrillation-I48.0; Dizziness and giddiness-R42 Indication: Abnormal EKG-1st Degree AV Block, COPD, Hyperlipidemia, Former Smoker-Quit 03/2024, Shortness of Breath, Chronic Respiratory Failure-on O2 at 2-3l, ETOH Use, Hypothyroid CPT Codes: Echo Complete w Full Doppler-[id number] Study Detail: The following Echo studies were performed: 2D, M-Mode, Doppler and color flow. PHYSICIAN INTERPRETATION: Left Ventricle: The left ventricular systolic function is normal, with a visually estimated ejection fraction of 60-65%. There are no regional wall motion abnormalities. The left ventricular cavity size is normal. Spectral Doppler shows a normal pattern of left ventricular diastolic filling. Left Atrium: The left atrium is normal in size. Right Ventricle: The right ventricle is normal in size. There is normal right ventricular global systolic function. Right Atrium: The right atrium is normal in size. Aortic Valve: The aortic valve appears structurally normal. The aortic valve dimensionless index is 0.63. There is no evidence of aortic valve regurgitation. The peak instantaneous gradient of the aortic valve is 5.2 mmHg. The mean gradient of the aortic valve is 3.0 mmHg. Mitral Valve: The mitral valve is normal in structure. There is mild mitral valve regurgitation. Tricuspid Valve: The tricuspid valve is structurally normal. There is mild tricuspid regurgitation. The Doppler estimated RVSP is slightly elevated right ventricular systolic pressure at 32.4 mmHg. Pulmonic Valve: The pulmonic valve is structurally normal. There is no indication of pulmonic valve regurgitation. Pericardium: There is no pericardial effusion noted. Aorta: The aortic root is normal. CONCLUSIONS: 1. The left ventricular systolic function is normal, with a visually estimated ejection fraction of 60-65%. 2. There is normal right ventricular global systolic function. 3. Mild mitral valve regurgitation. 4. Mild tricuspid regurgitation is visualized. 5. Slightly elevated right ventricular systolic pressure. 6. No change when compared to previous study. QUANTITATIVE DATA SUMMARY: 2D MEASUREMENTS: Normal Ranges: Ao Root d: 2.80 cm (2.0-3.7cm) LAs: 3.30 cm (2.7-4.0cm) RVIDd: 2.86 cm (0.9-3.6cm) IVSd: 1.09 cm (0.6-1.1cm) LVPWd: 0.87 cm (0.6-1.1cm) LVIDd: 3.81 cm (3.9-5.9cm) LVIDs: 2.77 cm LV Mass Index: 73.5 g/m2 LV % FS 27.3 % LV SYSTOLIC FUNCTION BY 2D PLANIMETRY (MOD): Normal Ranges: EF-A4C View: 64 % (>=55%) EF-A2C View: 67 % EF-Biplane: 63 % EF-Visual: 63 % LV EF Reported: 63 % LV DIASTOLIC FUNCTION: Normal Ranges: MV Peak E: 0.81 m/s (0.7-1.2 m/s) MV Peak A: 0.70 m/s (0.42-0.7 m/s) E/A Ratio: 1.17 (1.0-2.2) MV e' 0.094 m/s (>8.0) MV lateral e' 0.09 m/s MV medial e' 0.10 m/s E/e' Ratio: 8.65 (<8.0) MITRAL VALVE: Normal Ranges: MV Vmax: 1.31 m/s (<=1.3m/s) MV peak P.9 mmHg (<5mmHg) MV mean P.0 mmHg (<48mmHg) MITRAL INSUFFICIENCY: Normal Ranges: MR Vmax: 391.00 cm/s AORTIC VALVE: Normal Ranges: AoV Vmax: 1.14 m/s (<=1.7m/s) AoV Peak P.2 mmHg (<20mmHg) AoV Mean P.0 mmHg (1.7-11.5mmHg) LVOT Max Luis Alberto: 0.74 m/s (<=1.1m/s) AoV VTI: 26.50 cm (18-25cm) LVOT VTI: 16.80 cm LVOT Diameter: 1.90 cm (1.8-2.4cm) AoV Area, VTI: 1.80 cm2 (2.5-5.5cm2) AoV Area,Vmax: 1.83 cm2 (2.5-4.5cm2) AoV Dimensionless Index: 0.63 TRICUSPID VALVE/RVSP: Normal Ranges: Peak TR Velocity: 2.71 m/s RV Syst Pressure: 32 mmHg (< 30mmHg) PULMONIC VALVE: Normal Ranges: PV Max Luis Alberto: 0.5 m/s (0.6-0.9m/s) PV Max P.1 mmHg [id number] Soren Donovan MD Electronically signed on 06/03/2024 at 6:20:25 PM Final Normal [facility] CT CHEST WO CONon CT CHEST WO CON Normal [facility] XR CHEST 2 Von 01-22-2023 XR CHEST 2 V Normal [facility] XR CHEST 2 Von 12-28-2022 XR CHEST 2 V Normal [facility] CT CHEST WO CONon 08-15-2022 CT CHEST WO CON Normal [facility] ACID FAST SMEAR AND CXon Acid Fast Culture Negative Normal [facility] Comment on above: Result Comment: No a kemi fast bacilli isolated after 6 weeks. Performed By: #### A FB ####[facility] C[address]dyc[address] [place] [id number]. Charlee Pearson Acid Fast Smear Negative Normal [facility] Comment on above: Performed By: #### A FB ####[facility] [address]yt[address]ux[address] [place] [id number]. Charlee Pearson AFB Specimen Processing Concentration Normal [facility] Comment on above: Performed By: #### A FB ####[facility] X[address] [place], [place] [id number]. Charlee Pearson STOOL CULTUREon 04-24-2022 Campylobacter Culture Final report Normal [facility] Comment on above: Performed By: #### C XSTOOL ####[facility] [address] [place], [place] [address]Dr. Charlee Pearson E coli Shiga Toxin EIA Negative Normal Negative [facility] Comment on above: Performed By: #### C XSTOOL ####[facility] [address]ukw[address]zd[address] [place], [place] [address]Dr. Charlee Pearson Result 1 Comment [facility] Comment on above: Result Comment: No S almonella or Shigella recovered. Performed By: #### C XSTOOL ####[facility] [address] [place], [place] [address]Dr. Charlee Pearson Result Comment: No C ampylobacter species isolated. Salmonella/Shigella Screen Final report Normal [facility] Comment on above: Performed By: #### C XSTOOL ####[facility] L[address]scqlit18[address] [place] [id number]. Charlee Pearson FUNGAL CULTUREon 04-20-2022 Fungus (Mycology) Culture Final report Abnormal [facility] Comment on above: Performed By: #### C XFUN ####[facility] Onwhxqolas[address] [place], [place] [id number]. Charlee Pearson Fungus Stain Final report Normal [facility] Comment on above: Performed By: #### C XFUN ####[facility] [address]oyv[address] [place] [address]Dr. Charlee Pearson Result 1 Comment Normal [facility] Comment on above: Result Comment: ZULAY/ Calcofluor preparation: no fungus observed. Performed By: #### C XFUN ####[facility] Nzxmnvnmyy[address] [place] [address]Dr. Charlee Pearson Result 1 Esperanza albicans Abnormal [facility] Comment on above: Performed By: #### C XFUN ####[facility] S[address]ryr46[address] [place] [address]Dr. Charlee Michel CLOSTRIDIUM DIFFICILE PCRon 04-19-2022 C difficile Toxin Gene LORENZO Negative Normal Negative [facility] Comment on above: Performed By: #### C DIFNAA ####[facility] [address] [place], [place] [address]Dr. Charlee Michel CBC AUTO DIFFon 04-18-2022 BASO # 0.1 103/ul Normal 0.0-0.1 [facility] Comment on above: Performed By: #### C BC ####[facility] [address] [place], [place] [address]Dr. Charlee Pearson Basophils/100 WBC (Bld) 0.5 % Normal 0.2-2.0 [facility] Comment on above: Performed By: #### C BC ####[facility] Z[address]judbz[address] [place], [place] [address]Dr. Charlee Pearson EO # 0.0 103/ul Normal 0.0-0.7 [facility] Comment on above: Performed By: #### C BC ####[facility] Sm[address]zenf[address] [place], [place] [address]Dr. Charlee Pearson Eosinophils/100 WBC (Bld) 0.1 % Critically low 0.9-7.0 [facility] Comment on above: Performed By: #### C BC ####[facility] [address]xyq[address] [place], [place] [address]Dr. Claudetteclaudette Pearson Erythrocyte distribution width (RBC) [Ratio] 13.2 % Normal 11.0-15.0 [facility] Comment on above: Performed By: #### C BC ####[facility] [address]pxidyuh[address] [place] [address]Dr. Charlee Pearson Hematocrit (Bld) [Volume fraction] 32.2 % Critically low 36.0-48.0 [facility] Comment on above: Performed By: #### C BC ####[facility] Sw[address]jvxin5962 [place] [address]Dr. Charlee Pearson Hemoglobin (Bld) [Mass/Vol] 10.7 g/dL Critically low 12.0-16.0 [facility] Comment on above: Performed By: #### C BC ####[facility] [address]tdjf[address] [place], [place] [address]Dr. Charlee Pearson IG # 0.13 10e3/ul Critically high 0.00-0.03 [facility] Comment on above: Performed By: #### C BC ####[facility] [address]orb[address]ns[address] [place], [place] [address]Dr. Charlee Pearson IG % 1.4 % Critically high 0.0-0.5 [facility] Comment on above: Performed By: #### C BC ####[facility] Jagtuz[address]qe[address] [place], [place] [address]Dr. Charlee Pearson LYMPH # 1.4 103/ul Normal 1.2-3.8 [facility] Comment on above: Performed By: #### C BC ####[facility] Pt[address]gdcdga[address] [place], [place] [address]Dr. Charlee Pearson Lymphocytes/100 WBC (Bld) 14.2 % Critically low 20.5-60.0 [facility] Comment on above: Performed By: #### C BC ####[facility] Eevrg[address] [place], [place] [address]Dr. Charlee Pearson MANUAL DIFF REQ NO Normal [facility] Comment on above: Performed By: #### C BC ####[facility] [address]uis[address] [place], [place] [address]Dr. Charlee Pearson MCH (RBC) [Entitic mass] 30.4 pg Normal 26.7-34.0 [facility] Comment on above: Performed By: #### C BC ####[facility] C[address]sszghe76[address] [place] [id number]. Charlee Pearson MCHC (RBC) [Mass/Vol] 33.2 g/dL Normal 29.9-35.2 [facility] Comment on above: Performed By: #### C BC ####[facility] Yaebnvusph364[address] [place] [id number]. Charlee Michel MCV (RBC) [Entitic vol] 91.5 fL Normal 81.0-99.0 [facility] Comment on above: Performed By: #### C BC ####[facility] Eptq[address]unpmr6[address] [place] [id number]. Charlee Pearson MONO # 1.2 103/ul Critically high 0.3-0.8 [facility] Comment on above: Performed By: #### C BC ####[facility] Cwcfjsmnjb07[address] [place] [address]Dr. Charlee Pearson Monocytes/100 WBC (Bld) 12.9 % Critically high 1.7-12. 0 [facility] Comment on above: Performed By: #### C BC ####[facility] [address] [place], [place] [address]Dr. Claudetteclaudette Michel NEUT # 6.7 103/ul Critically high 1.4-6.5 [facility] Comment on above: Performed By: #### C BC ####[facility] Glfeuf[address]waq[address] [place], [place] [address]Dr. Charlee Pearson Neutrophils/100 WBC (Bld) 70.9 % Normal 43.0-75.0 [facility] Comment on above: Performed By: #### C BC ####[facility] [address] [place], [place] [address]Dr. Charlee Pearson Platelet mean volume (Bld) [Entitic vol] 8.2 fL Critically low 9.5-13.5 [facility] Comment on above: Performed By: #### C BC ####[facility] [address] [place], [place] [address]Dr. Charlee Pearson PLT 580 103/ul Critically high 150-450 [facility] Comment on above: Performed By: #### C BC ####[facility] P[address]cthfqk[address] [place] [address]Dr. Charlee Michel RBC 3.52 106/ul Critically low 4.20-5.40 [facility] Comment on above: Performed By: #### C BC ####[facility] Y[address]jbrobgv15[address] [place] [address]Dr. Claudetteclaudette Michel WBC 9.5 103/ul Normal 4.0-11.0 [facility] Comment on above: Performed By: #### C BC ####[facility] Cmtxrhxjkp[address]66 [place] [address]Dr. Charlee Pearson OSMOLALITY URINEon 2 Osmolality, Urine 270 mOsmol/kg Normal [facility] Comment on above: Result Comment: 24 h r : 300 - 900 Random: 50 - 1400 After 12hr fluid restriction: >850 Performed By: #### O SMOU ####[facility] [address]ngsmskr[address] [place], [place] [address]Dr. Charlee Pearson PROF 14(COMP METB)on 022 Albumin [Mass/Vol] 3.0 g/dL Critically low 3.4-5.0 [facility] Comment on above: Performed By: #### C MP ####[facility] [address]wqma[address] [place], [place] [address]Dr. Charlee Pearson Albumin/Globulin [Mass ratio] 0.8 {ratio} Normal [facility] Comment on above: Performed By: #### C MP ####[facility] [address]rswvrslww[address] [place] [address]Dr. Charlee Pearson ALP [Catalytic activity/Vol] 122 U/L Critically high 46-116 [facility] Comment on above: Performed By: #### C MP ####[facility] P[address] [place], [place] [address]Dr. Charlee Pearson ALT [Catalytic activity/Vol] 15 U/L Normal 14-59 [facility] Comment on above: Performed By: #### C MP ####[facility] R[address]anuh[address] [place], [place] [address]Dr. Charlee Pearson Anion gap [Moles/Vol] 11.3 mmol/L Normal [facility] Comment on above: Performed By: #### C MP ####[facility] Qztjzfpljl9382 [place] [address]Dr. Charlee Pearson AST [Catalytic activity/Vol] 16 U/L Normal 15-37 [facility] Comment on above: Performed By: #### C MP ####[facility] [address]wp[address] [place], [place] [address]Dr. Claudetteclaudette Michel Bilirubin [Mass/Vol] 0.4 mg/dL Normal 0.2-1.0 [facility] Comment on above: Performed By: #### C MP ####[facility] [address] [place], [place] [address]Dr. Charlee Pearson Calcium [Mass/Vol] 9.0 mg/dL Normal 8.5-10.1 [facility] Comment on above: Performed By: #### C MP ####[facility] Z[address]iffjrsot[address] [place], [place] [address]Dr. Charlee Pearson Chloride [Moles/Vol] 96 mmol/L Critically low 98-107 [facility] Comment on above: Performed By: #### C MP ####[facility] [address]keyvyqv[address] [place], [place] [address]Dr. Claudetteclaudette Michel CO2 [Moles/Vol] 26.9 mmol/L Normal 21.0-32.0 [facility] Comment on above: Performed By: #### C MP ####[facility] [address]frohlz[address] [place], [place] [address]Dr. Charlee Pearson Creatinine [Mass/Vol] 0.60 mg/dL Normal 0.55-1.02 [facility] Comment on above: Performed By: #### C MP ####[facility] [address] [place], [place] [address]Dr. Charlee Pearson EGFR-AF BRAZILIAN >60 Normal >=60 [facility] Comment on above: Performed By: #### C MP ####[facility] [address]ryvd[address] [place], [place] [address]Dr. Charlee Pearson EGFR-NON AF BRAZILIAN >60 Normal >=60 [facility] Comment on above: Performed By: #### C MP ####[facility] S[address]ihdevry[address] [place] [id number]. Charlee Michel Globulin (S) [Mass/Vol] 3.9 g/dL Normal [facility] Comment on above: Performed By: #### C MP ####[facility] Ajosgnidpc[address] [place] [id number]. Charlee Pearson Glucose [Mass/Vol] 94 mg/dL Normal 74-106 [facility] Comment on above: Performed By: #### C MP ####[facility] [address]vsciwrrl[address] [place] [address]Dr. Charlee Pearson Potassium [Moles/Vol] 4.2 mmol/L Normal 3.5-5.1 [facility] Comment on above: Performed By: #### C MP ####[facility] Cryigkmrsg[address] [place] [address]Dr. Charlee Pearson Protein [Mass/Vol] 6.9 g/dL Normal 6.4-8.2 [facility] Comment on above: Performed By: #### C MP ####[facility] Mqucpgnirn75[address] [place] [address]Dr. Charlee Pearson Sodium [Moles/Vol] 130 mmol/L Critically low 136-145 [facility] Comment on above: Performed By: #### C MP ####[facility] T[address]ttxhrpa64[address] [place] [address]Dr. Charlee Pearson Urea nitrogen [Mass/Vol] 3.0 mg/dL Critically low 7.0-18.0 [facility] Comment on above: Performed By: #### C MP ####[facility] Yz[address]ubwagrq46[address] [place] [id number]. Charlee Pearson Urea nitrogen/Creatinine [Mass ratio] 5.0 mg/mg Normal [facility] Comment on above: Performed By: #### C MP ####[facility] [address]ayeixu[address] [place] [address]Dr. Charlee Pearson PROF CHEM 8 (BAS METB)on Anion gap [Moles/Vol] 12.4 mmol/L Normal [facility] Comment on above: Performed By: #### B MP ####[facility] Ykupgevpkz8450 [place] [address]Dr. Charlee Pearson Calcium [Mass/Vol] 8.9 mg/dL Normal 8.5-10.1 [facility] Comment on above: Performed By: #### B MP ####[facility] T[address]hyfov[address] [place] [address]Dr. Charlee Pearson Chloride [Moles/Vol] 98 mmol/L Normal 98-107 [facility] Comment on above: Performed By: #### B MP ####[facility] [address]weqldhpmn[address] [place], [place] [address]Dr. Charlee Pearson CO2 [Moles/Vol] 23.5 mmol/L Normal 21.0-32.0 [facility] Comment on above: Performed By: #### B MP ####[facility] Wjrehnzqgu46[address] [place], [place] [address]Dr. Charlee Pearson Creatinine [Mass/Vol] 0.46 mg/dL Critically low 0.55-1.02 [facility] Comment on above: Performed By: #### B MP ####[facility] Hlmfymdrrf47[address] [place], [place] [address]Dr. Charlee Pearson EGFR-AF BRAZILIAN >60 Normal >=60 [facility] Comment on above: Performed By: #### B MP ####[facility] Dfdytnaznn0920[address] [place], [place] [address]Dr. Charlee Pearson EGFR-NON AF BRAZILIAN >60 Normal >=60 [facility] Comment on above: Performed By: #### B MP ####[facility] Gttojfedea16[address] [place], [place] [address]Dr. Charlee Pearson Glucose [Mass/Vol] 88 mg/dL Normal 74-106 [facility] Comment on above: Performed By: #### B MP ####[facility] Ecxjhzmtwn7775[address] [place], [place] [address]Dr. Claudetteclaudette Pearson Potassium [Moles/Vol] 3.9 mmol/L Normal 3.5-5.1 [facility] Comment on above: Performed By: #### B MP ####[facility] Awmovqwpvt0619 [place] [address]Dr. Charlee Pearson Sodium [Moles/Vol] 130 mmol/L Critically low 136-145 [facility] Comment on above: Performed By: #### B MP ####[facility] Zlgkrjcxca4872 [place] [address]Dr. Charlee Pearson Urea nitrogen [Mass/Vol] 2.0 mg/dL Critically low 7.0-18.0 [facility] Comment on above: Performed By: #### B MP ####[facility] Vudxzzfdrg6224 [place] [address]Dr. Claudetteclaudette Michel Urea nitrogen/Creatinine [Mass ratio] 4.3 mg/mg Normal [facility] Comment on above: Performed By: #### B MP ####[facility] Ldntuhbovp10[address] [place], [place] [address]Dr. Charlee Pearson Anion gap [Moles/Vol] 10.1 mmol/L Normal [facility] Comment on above: Performed By: #### B MP ####[facility] Xzxilebrfq0055[address] [place], [place] [address]Dr. Claudetteclaudette Pearson Calcium [Mass/Vol] 8.6 mg/dL Normal 8.5-10.1 [facility] Comment on above: Performed By: #### B MP ####[facility] Yidjjhmaic0710[address] [place], [place] [address]Dr. Charlee Pearson Chloride [Moles/Vol] 95 mmol/L Critically low 98-107 [facility] Comment on above: Performed By: #### B MP ####[facility] Jikckrpyri7380 [place] [address]Dr. Charlee Pearson CO2 [Moles/Vol] 28.3 mmol/L Normal 21.0-32.0 [facility] Comment on above: Performed By: #### B MP ####[facility] Lfkvmxanep8179[address] [place], [place] [address]Dr. Charlee Pearson Creatinine [Mass/Vol] 0.45 mg/dL Critically low 0.55-1.02 [facility] Comment on above: Performed By: #### B MP ####[facility] Kyjvkdhssj6101 [place] [id number]. Charlee Pearson EGFR-AF BRAZILIAN >60 Normal >=60 [facility] Comment on above: Performed By: #### B MP ####[facility] Sitegyeulc2853 [place] [id number]. Charlee Pearson EGFR-NON AF BRAZILIAN >60 Normal >=60 [facility] Comment on above: Performed By: #### B MP ####[facility] Ocvyngvjqk0114 [place] [id number]. Claudetteclaudette Pearson Glucose [Mass/Vol] 91 mg/dL Normal 74-106 [facility] Comment on above: Performed By: #### B MP ####[facility] Irivbapjhn4379 [place] [address]Dr. Charlee Pearson Potassium [Moles/Vol] 3.4 mmol/L Critically low 3.5-5.1 [facility] Comment on above: Performed By: #### B MP ####[facility] Pwxczyyqfa2738 [place] [address]Dr. Charlee Pearson Sodium [Moles/Vol] 130 mmol/L Critically low 136-145 [facility] Comment on above: Performed By: #### B MP ####[facility] Bflephzkgm0078 [place] [address]Dr. Charlee Pearson Urea nitrogen [Mass/Vol] 3.0 mg/dL Critically low 7.0-18.0 [facility] Comment on above: Performed By: #### B MP ####[facility] Atvmrikdvu6483 [place] [address]Dr. Charlee Pearson Urea nitrogen/Creatinine [Mass ratio] 6.7 mg/mg Normal [facility] Comment on above: Performed By: #### B MP ####[facility] Mvwxmptrhf8747 [place] [address]Dr. Charlee Pearson XR COLONon 04-18-2022 XR COLON Normal [facility] CBC AUTO DIFFon 04-17-2022 BASO # 0.0 103/ul Normal 0.0-0.1 [facility] Comment on above: Performed By: #### C BC ####[facility] Njbclqmfwr6050 [place] [address]Dr. Charlee Michel Basophils/100 WBC (Bld) 0.2 % Normal 0.2-2.0 [facility] Comment on above: Performed By: #### C BC ####[facility] Fqfpjdvhqy917[address] [place], [place] [address]Dr. Charlee Pearson EO # 0.0 103/ul Normal 0.0-0.7 [facility] Comment on above: Performed By: #### C BC ####[facility] Egucnjxeks9740[address] [place], [place] [address]Dr. Claudetteclaudette Pearson Eosinophils/100 WBC (Bld) 0.1 % Critically low 0.9-7.0 [facility] Comment on above: Performed By: #### C BC ####[facility] Xfcyacfpdl3310[address] [place], [place] [address]Dr. Claudetteclaudette Pearson Erythrocyte distribution width (RBC) [Ratio] 12.9 % Normal 11.0-15.0 [facility] Comment on above: Performed By: #### C BC ####[facility] Bjokqhipxl260[address] [place], [place] [address]Dr. Charlee Michel Hematocrit (Bld) [Volume fraction] 28.7 % Critically low 36.0-48.0 [facility] Comment on above: Performed By: #### C BC ####[facility] Kzjltnfpdi7936[address] [place], [place] [address]Dr. Charlee Pearson Hemoglobin (Bld) [Mass/Vol] 10.0 g/dL Critically low 12.0-16.0 [facility] Comment on above: Performed By: #### C BC ####[facility] Czmenqjkpf1969[address] [place], [place] [address]Dr. Charlee Pearson IG # 0.04 10e3/ul Critically high 0.00-0.03 [facility] Comment on above: Performed By: #### C BC ####[facility] Auqheltuaw4432[address] [place], [place] [address]Dr. Charlee Pearson IG % 0.5 % Normal 0.0-0.5 [facility] Comment on above: Performed By: #### C BC ####[facility] Aziucefboq1353 [place] [address]Dr. Charlee Pearson LYMPH # 1.5 103/ul Normal 1.2-3.8 [facility] Comment on above: Performed By: #### C BC ####[facility] Xlusevumtq0608 [place] [address]Dr. Charlee Pearson Lymphocytes/100 WBC (Bld) 17.2 % Critically low 20.5-60.0 [facility] Comment on above: Performed By: #### C BC ####[facility] Cyjwrhuljc5422 [place] [address]Dr. Charlee Pearson MANUAL DIFF REQ NO Normal [facility] Comment on above: Performed By: #### C BC ####[facility] Bjhehurvbu8082[address] [place], [place] [address]Dr. Charlee Pearson MCH (RBC) [Entitic mass] 31.3 pg Normal 26.7-34.0 [facility] Comment on above: Performed By: #### C BC ####[facility] Xaoazjnsxu6974[address] [place], [place] [address]Dr. Charlee Peasron MCHC (RBC) [Mass/Vol] 34.8 g/dL Normal 29.9-35.2 [facility] Comment on above: Performed By: #### C BC ####[facility] Nbjrdsvieq7626 [place] [address]Dr. Charlee Pearson MCV (RBC) [Entitic vol] 89.7 fL Normal 81.0-99.0 [facility] Comment on above: Performed By: #### C BC ####[facility] Dxlwkhykhf3472[address] [place], [place] [address]Dr. Charlee Pearson MONO # 1.3 103/ul Critically high 0.3-0.8 [facility] Comment on above: Performed By: #### C BC ####[facility] Ehrhhwfjck9251 [place] [address]Dr. Charlee Pearson Monocytes/100 WBC (Bld) 15.1 % Critically high 1.7-12. 0 [facility] Comment on above: Performed By: #### C BC ####[facility] Vgfgwbgfme1017 [place] [address]DrOttoniel Wilkinsclaudette Pearson NEUT # 5.7 103/ul Normal 1.4-6.5 [facility] Comment on above: Performed By: #### C BC ####[facility] Fgmuvbscyb1111 [place] [address]DrOttoniel Pearson Neutrophils/100 WBC (Bld) 66.9 % Normal 43.0-75.0 [facility] Comment on above: Performed By: #### C BC ####[facility] Tzhvyxbqxp7233 [place] [address]DrOttoniel Pearson Platelet mean volume (Bld) [Entitic vol] 8.4 fL Critically low 9.5-13.5 [facility] Comment on above: Performed By: #### C BC ####[facility] Xoyaicyeid7339[address] [place], [place] [address]DrOttoniel Pearson PLT 421 103/ul Normal 150-450 [facility] Comment on above: Performed By: #### C BC ####[facility] Xjqzcnvgci0010[address] [place], [place] [address]DrOttoniel Pearson RBC 3.20 106/ul Critically low 4.20-5.40 [facility] Comment on above: Performed By: #### C BC ####[facility] Myiforvoxk4148 [place] [address]DrOttoniel Pearson WBC 8.5 103/ul Normal 4.0-11.0 [facility] Comment on above: Performed By: #### C BC ####[facility] Lkqapqprpi4608 [place] [address]Dr. Charlee Pearson PROF 14(COMP METB)on 022 Albumin [Mass/Vol] 2.4 g/dL Critically low 3.4-5.0 [facility] Comment on above: Performed By: #### C MP ####[facility] Zyfbtwfqdk0072[address] [place], [place] [address]DrOttoniel Pearson Albumin/Globulin [Mass ratio] 0.7 {ratio} Normal [facility] Comment on above: Performed By: #### C MP ####[facility] Sjuijmmpmf4926 [place] [address]Dr. Charlee Michel ALP [Catalytic activity/Vol] 82 U/L Normal 46-116 [facility] Comment on above: Performed By: #### C MP ####[facility] Gsdrkklwtv2222[address] [place], [place] [address]Dr. Charlee Michel ALT [Catalytic activity/Vol] 13 U/L Critically low 14-59 [facility] Comment on above: Performed By: #### C MP ####[facility] Tarlvmjulx0588[address] [place], [place] [address]Dr. Charlee Michel Anion gap [Moles/Vol] 8.4 mmol/L Normal [facility] Comment on above: Performed By: #### C MP ####[facility] Dmvmyjsplf5102[address] [place], [place] [address]Dr. Charlee Michel AST [Catalytic activity/Vol] 11 U/L Critically low 15-37 [facility] Comment on above: Performed By: #### C MP ####[facility] Pkixhqazli4849[address] [place], [place] [address]Dr. Charlee Michel Bilirubin [Mass/Vol] 0.4 mg/dL Normal 0.2-1.0 [facility] Comment on above: Performed By: #### C MP ####[facility] Elsqveqahk2117[address] [place], [place] [address]Dr. Charlee Michel Calcium [Mass/Vol] 8.5 mg/dL Normal 8.5-10.1 [facility] Comment on above: Performed By: #### C MP ####[facility] Iztdeoqojk[address] [place], [place] [address]Dr. Charlee Pearson Chloride [Moles/Vol] 92 mmol/L Critically low 98-107 [facility] Comment on above: Performed By: #### C MP ####[facility] Kcqukmnrfd3479[address] [place], [place] [address]Dr. Charlee Pearson CO2 [Moles/Vol] 31.4 mmol/L Normal 21.0-32.0 [facility] Comment on above: Performed By: #### C MP ####[facility] Ygfyhdftxh4867 [place] [address]Dr. Charlee Michel Creatinine [Mass/Vol] 0.53 mg/dL Critically low 0.55-1.02 [facility] Comment on above: Performed By: #### C MP ####[facility] Amtcxsmckb6206 [place] [address]Dr. Charlee Michel EGFR-AF BRAZILIAN >60 Normal >=60 [facility] Comment on above: Performed By: #### C MP ####[facility] Ogetbhzecw7310 [place] [address]Dr. Charlee Pearson EGFR-NON AF BRAZILIAN >60 Normal >=60 [facility] Comment on above: Performed By: #### C MP ####[facility] Kdoruxylhy8236 [place] [address]Dr. Charlee Pearson Globulin (S) [Mass/Vol] 3.5 g/dL Normal [facility] Comment on above: Performed By: #### C MP ####[facility] Ptetzjpbij1770 [place] [address]Dr. Charlee Pearson Glucose [Mass/Vol] 100 mg/dL Normal 74-106 [facility] Comment on above: Performed By: #### C MP ####[facility] Yazkdtmrcw3331 [place] [address]Dr. Charlee Pearson Potassium [Moles/Vol] 3.8 mmol/L Normal 3.5-5.1 [facility] Comment on above: Performed By: #### C MP ####[facility] Ayetqfkpcl7189 [place] [address]Dr. Charlee Pearson Protein [Mass/Vol] 5.9 g/dL Critically low 6.4-8.2 [facility] Comment on above: Performed By: #### C MP ####[facility] Ojzacsiuaj3778 [place] [address]Dr. Charlee Pearson Sodium [Moles/Vol] 128 mmol/L Critically low 136-145 [facility] Comment on above: Performed By: #### C MP ####[facility] Okkescsuwt9432 [place] [address]Dr. Charlee Pearson Urea nitrogen [Mass/Vol] 3.0 mg/dL Critically low 7.0-18.0 [facility] Comment on above: Performed By: #### C MP ####[facility] Zwvxpzzfup6612 [place] [address]Dr. Charlee Pearson Urea nitrogen/Creatinine [Mass ratio] 5.7 mg/mg Normal [facility] Comment on above: Performed By: #### C MP ####[facility] Zaisizwdjn9524 [place] [address]Dr. Charlee Pearson PROF CHEM 8 (BAS METB)on Anion gap [Moles/Vol] 8.5 mmol/L Normal [facility] Comment on above: Performed By: #### B MP ####[facility] Ooxjpvpefr768[address] [place], [place] [address]Dr. Charlee Pearson Calcium [Mass/Vol] 8.5 mg/dL Normal 8.5-10.1 [facility] Comment on above: Performed By: #### B MP ####[facility] Jtbzcifshz1506[address] [place], [place] [address]Dr. Charlee Pearson Chloride [Moles/Vol] 95 mmol/L Critically low 98-107 [facility] Comment on above: Performed By: #### B MP ####[facility] Qiiugxcisw893[address] [place], [place] [address]Dr. Charlee Pearson CO2 [Moles/Vol] 30.5 mmol/L Normal 21.0-32.0 [facility] Comment on above: Performed By: #### B MP ####[facility] Npmqmcsbfi1701[address] [place], [place] [address]Dr. Charlee Pearson Creatinine [Mass/Vol] 0.43 mg/dL Critically low 0.55-1.02 [facility] Comment on above: Performed By: #### B MP ####[facility] Jqjkaqihec1663[address] [place], [place] [address]Dr. Charlee Pearson EGFR-AF BRAZILIAN >60 Normal >=60 [facility] Comment on above: Performed By: #### B MP ####[facility] Gohiomfrje2740 [place] [id number]. Charlee Pearson EGFR-NON AF BRAZILIAN >60 Normal >=60 [facility] Comment on above: Performed By: #### B MP ####[facility] Ondvhitcom6868 [place] [id number]. Charlee Pearson Glucose [Mass/Vol] 86 mg/dL Normal 74-106 [facility] Comment on above: Performed By: #### B MP ####[facility] Plwljthqeh3977 [place] [id number]. Charlee Pearson Potassium [Moles/Vol] 3.0 mmol/L Critically low 3.5-5.1 [facility] Comment on above: Performed By: #### B MP ####[facility] Hhsyvylooa56[address] [place], [place] [address]Dr. Charlee Pearson Sodium [Moles/Vol] 130 mmol/L Critically low 136-145 [facility] Comment on above: Performed By: #### B MP ####[facility] Dcagjrlanr3986 [place] [id number]. Charlee Pearson Urea nitrogen [Mass/Vol] 2.0 mg/dL Critically low 7.0-18.0 [facility] Comment on above: Performed By: #### B MP ####[facility] Ukbpfrigkm9794 [place] [address]Dr. Charlee Pearson Urea nitrogen/Creatinine [Mass ratio] 4.7 mg/mg Normal [facility] Comment on above: Performed By: #### B MP ####[facility] Uwjatbufbk6934 [place] [id number]. Charlee Pearson Anion gap [Moles/Vol] 7.2 mmol/L Normal [facility] Comment on above: Performed By: #### B MP ####[facility] Dzmrxoxahg9740 [place] [id number]. Charlee Pearson Calcium [Mass/Vol] 9.1 mg/dL Normal 8.5-10.1 [facility] Comment on above: Performed By: #### B MP ####[facility] Uqecrjwstj0857 [place] [address]Dr. Charlee Pearson Chloride [Moles/Vol] 92 mmol/L Critically low 98-107 [facility] Comment on above: Performed By: #### B MP ####[facility] Ulrbrbriew9288 [place] [address]Dr. Charlee Pearson CO2 [Moles/Vol] 32.3 mmol/L Critically high 21.0-32.0 [facility] Comment on above: Performed By: #### B MP ####[facility] Agdayhrtyo5877 [place] [address]Dr. Charlee Pearson Creatinine [Mass/Vol] 0.60 mg/dL Normal 0.55-1.02 [facility] Comment on above: Performed By: #### B MP ####[facility] Eoizihnffy10[address] [place], [place] [address]Dr. Charlee Michel EGFR-AF BRAZILIAN >60 Normal >=60 [facility] Comment on above: Performed By: #### B MP ####[facility] Fdmxnxgqdt3400 [place] [address]Dr. Charlee Pearson EGFR-NON AF BRAZILIAN >60 Normal >=60 [facility] Comment on above: Performed By: #### B MP ####[facility] Jbgqbtscze6632[address] [place], [place] [address]Dr. Charlee Pearson Glucose [Mass/Vol] 104 mg/dL Normal 74-106 [facility] Comment on above: Performed By: #### B MP ####[facility] U[address]mtclhsm[address] [place], [place] [address]Dr. Charlee Pearson Potassium [Moles/Vol] 3.5 mmol/L Normal 3.5-5.1 [facility] Comment on above: Performed By: #### B MP ####[facility] Moaslyuhpa3953 [place] [address]Dr. Claudetteclaudette Pearson Sodium [Moles/Vol] 128 mmol/L Critically low 136-145 [facility] Comment on above: Performed By: #### B MP ####[facility] Ruxcpafpcq6933 [place] [id number]. Claudetteclaudette Michel Urea nitrogen [Mass/Vol] 2.0 mg/dL Critically low 7.0-18.0 [facility] Comment on above: Performed By: #### B MP ####[facility] Xnqfdiwlxa2199 [place] [id number]. Charlee Pearson Urea nitrogen/Creatinine [Mass ratio] 3.3 mg/mg Normal [facility] Comment on above: Performed By: #### B MP ####[facility] Sedlykhtxf2795 [place] [id number]. Charlee Pearson Anion gap [Moles/Vol] 7.8 mmol/L Normal [facility] Comment on above: Performed By: #### B MP ####[facility] Ahiihvnpym2179 [place] [address]Dr. Charlee Pearson Calcium [Mass/Vol] 8.2 mg/dL Critically low 8.5-10.1 [facility] Comment on above: Performed By: #### B MP ####[facility] Xmsscvyrjm4854 [place] [id number]. Charlee Pearson Chloride [Moles/Vol] 91 mmol/L Critically low 98-107 [facility] Comment on above: Performed By: #### B MP ####[facility] Felqrjpqld5941 [place] [id number]. Charlee Pearson CO2 [Moles/Vol] 31.2 mmol/L Normal 21.0-32.0 [facility] Comment on above: Performed By: #### B MP ####[facility] Rqykrbygxt0444 [place] [id number]. Charlee Pearson Creatinine [Mass/Vol] 0.54 mg/dL Critically low 0.55-1.02 [facility] Comment on above: Performed By: #### B MP ####[facility] Pflqqwoifc5436 [place] [id number]. Charlee Pearson EGFR-AF BRAZILIAN >60 Normal >=60 [facility] Comment on above: Performed By: #### B MP ####[facility] Dcpzlrjuoj3394 [place] [address]Dr. Charlee Pearson EGFR-NON AF BRAZILIAN >60 Normal >=60 [facility] Comment on above: Performed By: #### B MP ####[facility] Wvcyonjwyd7850[address] [place], [place] [address]Dr. Charlee Pearson Glucose [Mass/Vol] 101 mg/dL Normal 74-106 [facility] Comment on above: Performed By: #### B MP ####[facility] Bvlvxjfwge3497[address] [place], [place] [address]Dr. Charlee Pearson Potassium [Moles/Vol] 4.0 mmol/L Normal 3.5-5.1 [facility] Comment on above: Performed By: #### B MP ####[facility] Ohdphvncco8933[address] [place], [place] [address]Dr. Charlee Michel Sodium [Moles/Vol] 126 mmol/L Critically low 136-145 [facility] Comment on above: Performed By: #### B MP ####[facility] Dndizwttyv9078[address] [place], [place] [address]Dr. Charlee Pearson Urea nitrogen [Mass/Vol] 4.0 mg/dL Critically low 7.0-18.0 [facility] Comment on above: Performed By: #### B MP ####[facility] Jymadgdofd220[address] [place], [place] [address]Dr. Charlee Michel Urea nitrogen/Creatinine [Mass ratio] 7.4 mg/mg Normal [facility] Comment on above: Performed By: #### B MP ####[facility] Uucublptui3348[address] [place], [place] [address]Dr. Charlee Michel CBC AUTO DIFFon 04-16-2022 BASO # 0.0 103/ul Normal 0.0-0.1 [facility] Comment on above: Performed By: #### C BC ####[facility] Dktupbcent92[address] [place], [place] [address]Dr. Charlee Michel Basophils/100 WBC (Bld) 0.2 % Normal 0.2-2.0 [facility] Comment on above: Performed By: #### C BC ####[facility] Yphyfxclmq9280 [place] [id number]. Charlee Pearson EO # 0.3 103/ul Normal 0.0-0.7 [facility] Comment on above: Performed By: #### C BC ####[facility] Wrihsqncyi6905 [place] [id number]. Charlee Pearson Eosinophils/100 WBC (Bld) 2.4 % Normal 0.9-7.0 [facility] Comment on above: Performed By: #### C BC ####[facility] Nxeccfgkkw3358 [place] [address]Dr. Charlee Pearson Erythrocyte distribution width (RBC) [Ratio] 12.9 % Normal 11.0-15.0 [facility] Comment on above: Performed By: #### C BC ####[facility] Ynepjjiwct5682 [place] [address]Dr. Charlee Pearson Hematocrit (Bld) [Volume fraction] 28.0 % Critically low 36.0-48.0 [facility] Comment on above: Performed By: #### C BC ####[facility] Sidswuvpdj7967 [place] [address]Dr. Charlee Pearson Hemoglobin (Bld) [Mass/Vol] 9.8 g/dL Critically low 12.0-16.0 [facility] Comment on above: Performed By: #### C BC ####[facility] Skgfwzxmwb9165 [place] [address]Dr. Charlee Pearson IG # 0.06 10e3/ul Critically high 0.00-0.03 [facility] Comment on above: Performed By: #### C BC ####[facility] Ydtbcobqxm9176 [place] [id number]. Charlee Pearson IG % 0.6 % Critically high 0.0-0.5 [facility] Comment on above: Performed By: #### C BC ####[facility] Ospmjpsxhg6[address] [place], [place] [address]Dr. Claudetteclaudette Pearson LYMPH # 1.4 103/ul Normal 1.2-3.8 [facility] Comment on above: Performed By: #### C BC ####[facility] Crfzlcorjp1971 [place] [phone]. Charlee Michel Lymphocytes/100 WBC (Bld) 13.1 % Critically low 20.5-60.0 [facility] Comment on above: Performed By: #### C BC ####[facility] Dgqrohkvda6571 [place] [phone]. Claudetteclaudette Pearson MANUAL DIFF REQ NO Normal [facility] Comment on above: Performed By: #### C BC ####[facility] Umpwmpswuu5989 [place] [id number]. Charlee Michel MCH (RBC) [Entitic mass] 31.4 pg Normal 26.7-34.0 [facility] Comment on above: Performed By: #### C BC ####[facility] [facility] [address] [place] [address]Dr. Chralee Michel MCHC (RBC) [Mass/Vol] 35.0 g/dL Normal 29.9-35.2 [facility] Comment on above: Performed By: #### C BC ####[facility] Nwsarqasos[address] [place] [id number]. Charlee Michel MCV (RBC) [Entitic vol] 89.7 fL Normal 81.0-99.0 [facility] Comment on above: Performed By: #### C BC ####[facility] Lqxbsrksep7[address] [place] [id number]. Charlee Pearson MONO # 1.7 103/ul Critically high 0.3-0.8 [facility] Comment on above: Performed By: #### C BC ####[facility] Ubtczpwtwi74[address] [place] [id number]. Charlee Pearson Monocytes/100 WBC (Bld) 16.0 % Critically high 1.7-12. 0 [facility] Comment on above: Performed By: #### C BC ####[facility] Etdnrvzw[address] [place], [place] [id number]. Charlee Pearson NEUT # 7.1 103/ul Critically high 1.4-6.5 [facility] Comment on above: Performed By: #### C BC ####[facility] Ojgsvvuscs24[address] [place] [id number]. Charlee Pearson Neutrophils/100 WBC (Bld) 67.7 % Normal 43.0-75.0 [facility] Comment on above: Performed By: #### C BC ####[facility] Kxaomcaggf035[address] [place] [id number]. Charlee Pearson Platelet mean volume (Bld) [Entitic vol] 9.0 fL Critically low 9.5-13.5 [facility] Comment on above: Performed By: #### C BC ####[facility] Zwzszaqjjj12[address] [place] [address]Dr. Charlee Pearson PLT 454 103/ul Critically high 150-450 [facility] Comment on above: Performed By: #### C BC ####[facility] Fipsjeyrag[address] [place] [address]Dr. Charlee Pearson RBC 3.12 106/ul Critically low 4.20-5.40 [facility] Comment on above: Performed By: #### C BC ####[facility] Qhgqqhsbql[address] [place], [place] [address]Dr. Charlee Pearson WBC 10.5 103/ul Normal 4.0-11.0 [facility] Comment on above: Performed By: #### C BC ####[facility] Ssnktbdgwm7[address] [place] [address]Dr. Charlee Pearson PROF 14(COMP METB)on 022 Albumin [Mass/Vol] 2.7 g/dL Critically low 3.4-5.0 [facility] Comment on above: Performed By: #### C MP ####[facility] Blwuqujvno[address] [place] [address]Dr. Charlee Pearson Albumin/Globulin [Mass ratio] 0.8 {ratio} Normal [facility] Comment on above: Performed By: #### C MP ####[facility] Qrlxjeulor87[address] [place] [address]Dr. Charlee Pearson ALP [Catalytic activity/Vol] 86 U/L Normal 46-116 [facility] Comment on above: Performed By: #### C MP ####[facility] Sehpswggqj6[address] [place] [id number]. Charlee Pearson ALT [Catalytic activity/Vol] 14 U/L Normal 14-59 [facility] Comment on above: Performed By: #### C MP ####[facility] Scqqfcieyd29[address] [place] [phone]. Charlee Pearson Anion gap [Moles/Vol] 11.0 mmol/L Normal [facility] Comment on above: Performed By: #### C MP ####[facility] Dkwgeiogxj4167 [place] [id number]. Charlee Pearson AST [Catalytic activity/Vol] 15 U/L Normal 15-37 [facility] Comment on above: Performed By: #### C MP ####[facility] Hjchaviuda[address] [place] [address]Dr. Charlee Pearson Bilirubin [Mass/Vol] 0.6 mg/dL Normal 0.2-1.0 [facility] Comment on above: Performed By: #### C MP ####[facility] Egyruadesq3584 [place] [id number]. Charlee Pearson Calcium [Mass/Vol] 8.6 mg/dL Normal 8.5-10.1 [facility] Comment on above: Performed By: #### C MP ####[facility] Nrylxykqib0858 [place] [phone]. Charlee Michel Chloride [Moles/Vol] 93 mmol/L Critically low 98-107 [facility] Comment on above: Performed By: #### C MP ####[facility] Txixkdbztj3884 [place] [id number]. Charlee Pearson CO2 [Moles/Vol] 25.3 mmol/L Normal 21.0-32.0 [facility] Comment on above: Performed By: #### C MP ####[facility] Ihzrsgntld4[address] [place] [phone]. Charlee Pearson Creatinine [Mass/Vol] 0.40 mg/dL Critically low 0.55-1.02 [facility] Comment on above: Performed By: #### C MP ####[facility] Rozmzhubpx[address] [place] [phone]. Charlee Pearson EGFR-AF BRAZILIAN >60 Normal >=60 [facility] Comment on above: Performed By: #### C MP ####[facility] Fvgudpyarh280[address] [place] [address]Dr. Charlee Pearson EGFR-NON AF BRAZILIAN >60 Normal >=60 [facility] Comment on above: Performed By: #### C MP ####[facility] Mqbcayopuk[address] [place] [address]Dr. Charlee Pearson Globulin (S) [Mass/Vol] 3.6 g/dL Normal T [facility] Comment on above: Performed By: #### C MP ####[facility] Ugulnmzupu6258[address] [place], [place] [address]Dr. Charlee Pearson Glucose [Mass/Vol] 93 mg/dL Normal 74-106 [facility] Comment on above: Performed By: #### C MP ####[facility] Gftgtrzawc[address] [place], [place] [address]Dr. Charlee Pearson Potassium [Moles/Vol] 4.3 mmol/L Normal 3.5-5.1 [facility] Comment on above: Performed By: #### C MP ####[facility] Lkpppoxupu866[address] [place], [place] [address]Dr. Charlee Pearson Protein [Mass/Vol] 6.3 g/dL Critically low 6.4-8.2 [facility] Comment on above: Performed By: #### C MP ####[facility] Evmhecynqa89[address] [place] [address]Dr. Charlee Pearson Sodium [Moles/Vol] 125 mmol/L Critically low 136-145 [facility] Comment on above: Performed By: #### C MP ####[facility] Iarsqlbpgs0066[address] [place], [place] [address]Dr. Charlee Pearson Urea nitrogen [Mass/Vol] 2.0 mg/dL Critically low 7.0-18.0 [facility] Comment on above: Performed By: #### C MP ####[facility] Xmmrhsublj98[address] [place] [address]Dr. Charlee Pearson Urea nitrogen/Creatinine [Mass ratio] 5.0 mg/mg Normal [facility] Comment on above: Performed By: #### C MP ####[facility] Utokucpaff84[address] [place] [address]Dr. Charlee Pearson PROF CHEM 8 (BAS METB)on Anion gap [Moles/Vol] 8.4 mmol/L Normal [facility] Comment on above: Performed By: #### B MP ####[facility] Tdjbkvvita9[address] [place], [place] [address]Dr. Charlee Pearson Calcium [Mass/Vol] 8.1 mg/dL Critically low 8.5-10.1 [facility] Comment on above: Performed By: #### B MP ####[facility] Uxcwojjlnb9088[address] [place], [place] [address]Dr. Charlee Pearson Chloride [Moles/Vol] 88 mmol/L Critically low 98-107 [facility] Comment on above: Performed By: #### B MP ####[facility] Ybslzkkmon0788[address] [place], [place] [address]Dr. Charlee Pearson CO2 [Moles/Vol] 28.1 mmol/L Normal 21.0-32.0 [facility] Comment on above: Performed By: #### B MP ####[facility] Hdcrojmemn2[address] [place], [place] [address]Dr. Charlee Pearson Creatinine [Mass/Vol] 0.50 mg/dL Critically low 0.55-1.02 [facility] Comment on above: Performed By: #### B MP ####[facility] Sybgvybnpj17[address] [place], [place] [address]Dr. Charlee Pearson EGFR-AF BRAZILIAN >60 Normal >=60 [facility] Comment on above: Performed By: #### B MP ####[facility] Ooryopbumb2187[address] [place], [place] [address]Dr. Charlee Pearson EGFR-NON AF BRAZILIAN >60 Normal >=60 [facility] Comment on above: Performed By: #### B MP ####[facility] Paobggdmgj10[address] [place] [address]Dr. Charlee Pearson Glucose [Mass/Vol] 106 mg/dL Normal 74-106 [facility] Comment on above: Performed By: #### B MP ####[facility] Amudsvjukh1725[address] [place], [place] [address]Dr. Charlee Pearson Potassium [Moles/Vol] 3.5 mmol/L Normal 3.5-5.1 [facility] Comment on above: Performed By: #### B MP ####[facility] Zppttxxgka663[address] [place], [place] [address]Dr. Charlee Pearson Sodium [Moles/Vol] 121 mmol/L Critically low 136-145 [facility] Comment on above: Performed By: #### B MP ####[facility] Pukbetmyyu[address] [place], [place] [address]Dr. Charlee Pearson Urea nitrogen [Mass/Vol] 4.0 mg/dL Critically low 7.0-18.0 [facility] Comment on above: Performed By: #### B MP ####[facility] Lcrirlzmyw045[address] [place], [place] [address]Dr. Charlee Pearson Urea nitrogen/Creatinine [Mass ratio] 8.0 mg/mg Normal [facility] Comment on above: Performed By: #### B MP ####[facility] Wtjcwxnrep3178[address] [place], [place] [address]Dr. Charlee Pearson Anion gap [Moles/Vol] 8.0 mmol/L Normal [facility] Comment on above: Performed By: #### B MP ####[facility] Xdmjciywio5313[address] [place], [place] [address]Dr. Charlee Pearson Calcium [Mass/Vol] 8.7 mg/dL Normal 8.5-10.1 [facility] Comment on above: Performed By: #### B MP ####[facility] Dwigrlpotz5515[address] [place], [place] [address]Dr. Charlee Pearson Chloride [Moles/Vol] 90 mmol/L Critically low 98-107 [facility] Comment on above: Performed By: #### B MP ####[facility] Pzfxtjayok3575[address] [place], [place] [address]Dr. Charlee Pearson CO2 [Moles/Vol] 29.8 mmol/L Normal 21.0-32.0 [facility] Comment on above: Performed By: #### B MP ####[facility] Xfhwpmxrdo5[address] [place] [address]Dr. Charlee Pearson Creatinine [Mass/Vol] 0.40 mg/dL Critically low 0.55-1.02 [facility] Comment on above: Performed By: #### B MP ####[facility] Ptgquwdpnv79[address] [place] [address]Dr. Charlee Pearson EGFR-AF BRAZILIAN >60 Normal >=60 [facility] Comment on above: Performed By: #### B MP ####[facility] Szuxnkhjeh32[address] [place], [place] [address]Dr. Charlee Pearson EGFR-NON AF BRAZILIAN >60 Normal >=60 [facility] Comment on above: Performed By: #### B MP ####[facility] Amrcflxykn4147[address] [place], [place] [address]Dr. Charlee Pearson Glucose [Mass/Vol] 109 mg/dL Critically high 74-106 T [facility] Comment on above: Performed By: #### B MP ####[facility] Gudhbsstrc2612[address] [place], [place] [address]Dr. Charlee Pearson Potassium [Moles/Vol] 3.8 mmol/L Normal 3.5-5.1 [facility] Comment on above: Performed By: #### B MP ####[facility] Wfgurxsuya493[address] [place], [place] [address]Dr. Charlee Pearson Sodium [Moles/Vol] 123 mmol/L Critically low 136-145 [facility] Comment on above: Result Comment: TEST REPEATED CRITICAL VALUE VERIFIED Performed By: #### B MP ####[facility] Hlamvcgorp1865[address] [place], [place] [address]DrOttoniel Pearson Urea nitrogen [Mass/Vol] 2.0 mg/dL Critically low 7.0-18.0 [facility] Comment on above: Performed By: #### B MP ####[facility] Cjsjnhtptd8868[address] [place], [place] [address]Dr. Charlee Pearson Urea nitrogen/Creatinine [Mass ratio] 5.0 mg/mg Normal [facility] Comment on above: Performed By: #### B MP ####[facility] Fsqqyxvzjy2197[address] [place], [place] [address]Dr. Charlee Michel Anion gap [Moles/Vol] 9.1 mmol/L Normal [facility] Comment on above: Performed By: #### B MP ####[facility] Flixrmnnza675[address] [place], [place] [address]Dr. Claudetteclaudette Michel Calcium [Mass/Vol] 8.6 mg/dL Normal 8.5-10.1 [facility] Comment on above: Performed By: #### B MP ####[facility] Youflzdalt4988[address] [place], [place] [address]Dr. Charlee Pearson Chloride [Moles/Vol] 94 mmol/L Critically low 98-107 [facility] Comment on above: Performed By: #### B MP ####[facility] Ahkceiqjlh8740[address] [place], [place] [address]Dr. Charlee Pearson CO2 [Moles/Vol] 27.4 mmol/L Normal 21.0-32.0 [facility] Comment on above: Performed By: #### B MP ####[facility] Lezcpwzvmf0660[address] [place], [place] [address]Dr. Charlee Pearson Creatinine [Mass/Vol] 0.44 mg/dL Critically low 0.55-1.02 [facility] Comment on above: Performed By: #### B MP ####[facility] Mmoogatqgv7105[address] [place], [place] [address]Dr. Charlee Pearson EGFR-AF BRAZILIAN >60 Normal >=60 [facility] Comment on above: Performed By: #### B MP ####[facility] Gdyicdflps4528[address] [place], [place] [address]Dr. Charlee Pearson EGFR-NON AF BRAZILIAN >60 Normal >=60 [facility] Comment on above: Performed By: #### B MP ####[facility] Crwrofieuc116[address] [place], [place] [address]Dr. Charlee Pearson Glucose [Mass/Vol] 93 mg/dL Normal 74-106 [facility] Comment on above: Performed By: #### B MP ####[facility] Mfmkhnuuro7746[address] [place], [place] [address]Dr. Charlee Pearson Potassium [Moles/Vol] 4.5 mmol/L Normal 3.5-5.1 [facility] Comment on above: Performed By: #### B MP ####[facility] Dcjsldhkvk8038[address] [place], [place] [address]Dr. Charlee Pearson Sodium [Moles/Vol] 126 mmol/L Critically low 136-145 [facility] Comment on above: Performed By: #### B MP ####[facility] Gfaxisqrml6289[address] [place], [place] [address]Dr. Charlee Pearson Urea nitrogen [Mass/Vol] 3.0 mg/dL Critically low 7.0-18.0 [facility] Comment on above: Performed By: #### B MP ####[facility] Zanddiingq6536[address] [place], [place] [address]Dr. Charlee Pearson Urea nitrogen/Creatinine [Mass ratio] 6.8 mg/mg Normal [facility] Comment on above: Performed By: #### B MP ####[facility] Abkxnoefvi5754[address] [place], [place] [address]Dr. Charlee Pearson CBC AUTO DIFFon 04-15-2022 BASO # 0.0 103/ul Normal 0.0-0.1 [facility] Comment on above: Performed By: #### C BC ####[facility] Qqydbkohlr0611[address] [place], [place] [address]Dr. Charlee Pearson Basophils/100 WBC (Bld) 0.2 % Normal 0.2-2.0 [facility] Comment on above: Performed By: #### C BC ####[facility] Nszqxdmasd1349[address] [place], [place] [address]Dr. Charlee Pearson EO # 0.0 103/ul Normal 0.0-0.7 [facility] Comment on above: Performed By: #### C BC ####[facility] Ddnvkzvdxa1678[address] [place], [place] [address]Dr. Charlee Pearson Eosinophils/100 WBC (Bld) 0.0 % Critically low 0.9-7.0 [facility] Comment on above: Performed By: #### C BC ####[facility] Huqutynpuy7295[address] [place], [place] [address]Dr. Charlee Pearson Erythrocyte distribution width (RBC) [Ratio] 12.7 % Normal 11.0-15.0 [facility] Comment on above: Performed By: #### C BC ####[facility] Wvtkqvejkf2106[address] [place], [place] [address]DrOttoniel Charlee Pearson Hematocrit (Bld) [Volume fraction] 32.2 % Critically low 36.0-48.0 [facility] Comment on above: Performed By: #### C BC ####[facility] Ermugtwwio5801[address] [place], [place] [address]Dr. Charlee Pearson Hemoglobin (Bld) [Mass/Vol] 11.2 g/dL Critically low 12.0-16.0 [facility] Comment on above: Performed By: #### C BC ####[facility] Kdhabzsqod8316[address] [place], [place] [address]Dr. Charlee Pearson IG # 0.01 10e3/ul Normal 0.00-0.03 [facility] Comment on above: Performed By: #### C BC ####[facility] Tkluhlgshr8408[address] [place], [place] [address]Dr. Charlee Pearson IG % 0.1 % Normal 0.0-0.5 [facility] Comment on above: Performed By: #### C BC ####[facility] Avcxdnkqyt1696[address] [place], [place] [address]DrOttoniel Charlee Michel LYMPH # 0.9 103/ul Critically low 1.2-3.8 [facility] Comment on above: Performed By: #### C BC ####[facility] Keowajmxis2030[address] [place], [place] [address]DrOttoniel Charlee Michel Lymphocytes/100 WBC (Bld) 11.5 % Critically low 20.5-60.0 [facility] Comment on above: Performed By: #### C BC ####[facility] Dbftwqmxiu6062[address] [place], [place] [address]Dr. Claudetteclaudette Pearson MANUAL DIFF REQ NO Normal [facility] Comment on above: Performed By: #### C BC ####[facility] Pszotwoyto3823 [place] [address]DrOttoniel Charlee Michel MCH (RBC) [Entitic mass] 31.0 pg Normal 26.7-34.0 [facility] Comment on above: Performed By: #### C BC ####[facility] Bscvtmifxf8847[address] [place], [place] [address]Dr. Charlee Michel MCHC (RBC) [Mass/Vol] 34.8 g/dL Normal 29.9-35.2 [facility] Comment on above: Performed By: #### C BC ####[facility] Urhmaxjuyu6077[address] [place], [place] [address]DrOttoniel Pearson MCV (RBC) [Entitic vol] 89.2 fL Normal 81.0-99.0 [facility] Comment on above: Performed By: #### C BC ####[facility] Wxuvmkkdew775[address] [place], [place] [address]DrOttoniel Pearson MONO # 1.2 103/ul Critically high 0.3-0.8 [facility] Comment on above: Performed By: #### C BC ####[facility] Bzsblqiyhr5[address] [place], [place] [address]DrOttoniel Pearson Monocytes/100 WBC (Bld) 14.3 % Critically high 1.7-12. 0 [facility] Comment on above: Performed By: #### C BC ####[facility] Mlpszecaib743[address] [place], [place] [address]DrOttoniel Pearson NEUT # 6.0 103/ul Normal 1.4-6.5 [facility] Comment on above: Performed By: #### C BC ####[facility] Wraaczakno[address] [place], [place] [address]DrOttoniel Pearson Neutrophils/100 WBC (Bld) 73.9 % Normal 43.0-75.0 [facility] Comment on above: Performed By: #### C BC ####[facility] Gykvpckcsm[address] [place], [place] [address]Dr. Charlee Pearson Platelet mean volume (Bld) [Entitic vol] 8.8 fL Critically low 9.5-13.5 [facility] Comment on above: Performed By: #### C BC ####[facility] Uvrjxcvniq7772 [place], [place] [address]Af. Charlee Pearson PLT 450 103/ul Normal 150-450 [facility] Comment on above: Performed By: #### C BC ####[facility] Ykmcixsggz0078 [place] [id number]. Charlee Pearson RBC 3.61 106/ul Critically low 4.20-5.40 [facility] Comment on above: Performed By: #### C BC ####[facility] Ryrmuqjxtj5223 [place] [address]Dr. Charlee Pearson WBC 8.1 103/ul Normal 4.0-11.0 [facility] Comment on above: Performed By: #### C BC ####[facility] Yzkoqzbpmz8458 [place] [id number]. Charlee Pearson CREATININE URINEon 2 URINE CREAT 40.99 mg/dL Normal 20.00-300.00 [facility] Comment on above: Performed By: #### C DU POTTER ####[facility] Zopfnwzkil0643 [place] [id number]. Charlee Pearson CT ABD/PELV W CONon 04-15-[address] ABD/PELV W CON Normal [facility]25 SARS-CoV-2 (COVID-19) RNA LORENZO+probe Ql (Unsp spec) Not detected Normal NOT DETECTED [facility] Comment on above: Result Comment: When [...] for this test is supported by the [employer] and Human Service's declaration that [...] be used). Performed By: #### C VDTB ####[facility] Hypgxuspqn550[address] [place], [place] [address]Dr. Charlee Pearson ER URINE PROFILEon 2 Bilirubin Ql (U) Negative Normal NEGATIVE [facility] Comment on above: Performed By: #### U MICRO, ERUR ####[facility] Vhgkbqtphc2483[address] [place], [place] [address]Dr. Charlee Pearson Clarity (U) CLEAR Normal CLEAR [facility] Comment on above: Performed By: #### U MICRO, ERUR ####[facility] Blztrnbvjv1342[address] [place], [place] [address]Dr. Charlee Pearson Color (U) LT. YELLOW Normal YELLOW [facility] Comment on above: Performed By: #### U MICRO, ERUR ####[facility] Jqfjjmcwas29[address] [place], [place] [address]Dr. Charlee JOHNSONAHD A micrscopic examination will be performed if indicated. Normal [facility] Comment on above: Performed By: #### U MICRO, ERUR ####[facility] Wiljmuxlog[address] [place], [place] [address]Dr. Charlee Pearson Glucose Ql (U) Negative Normal NEGATIVE [facility] Comment on above: Performed By: #### U MICRO, ERUR ####[facility] Xretymtxey9565[address] [place], [place] [address]Dr. Charlee Pearson Hemoglobin Ql (U) SMALL Abnormal NEGATIVE [facility] Comment on above: Performed By: #### U MICRO, ERUR ####[facility] Gbwrjmdyto9537[address] [place], [place] [address]Dr. Charlee Pearson Ketones Ql (U) 15 mg/dl Abnormal NEGATIVE [facility] Comment on above: Performed By: #### U MICRO, ERUR ####[facility] Bmmmjkodhn7[address] [place] [address]Dr. Charlee Pearson LEUKOCYTES Negative Normal NEGATIVE [facility] Comment on above: Performed By: #### U MICRO, ERUR ####[facility] Turdqzegme4[address] [place] [address]Dr. Charlee Pearson Nitrite Ql (U) Negative Normal NEGATIVE [facility] Comment on above: Performed By: #### U MICRO, ERUR ####[facility] Qbhsduqput7215 [place] [address]Dr. Claudetteclaudette Pearson pH (U) 6.5 [pH] Normal 5-9 [facility] Comment on above: Performed By: #### U MICRO, ERUR ####[facility] Qskggdebej5685 [place] [address]Dr. Claudetteclaudette Pearson SPEC GRAVITY 1.010 Normal 1.005-<=1.025 [facility] Comment on above: Performed By: #### U MICRO, ERUR ####[facility] Jzoahnsaqw01[address] [place], [place] [address]Dr. Charlee Pearson UA PROTEIN Negative Normal NEGATIVE/ TRACE [facility] Comment on above: Performed By: #### U MICRO, ERUR ####[facility] Lpzhwhcath[address] [place], [place] [address]Dr. Charlee Pearson UR MICRO IND INDICATED Normal [facility] Comment on above: Performed By: #### U MICRO, ERUR ####[facility] Aptgvhpvlq8394[address] [place], [place] [address]Dr. Claudetteclaudette Pearson Urobilinogen Qn (U) 1.0 {Tye'U}/dL Normal 0.2 - 1. 0 [facility] Comment on above: Performed By: #### U MICRO, ERUR ####[facility] Xodxrfpswp39[address] [place], [place] [address]Dr. Claudetteclaudette Pearson HEMOGLOBIN AND HEMATOCRITon 04-15-2022 Hematocrit (Bld) [Volume fraction] 32.0 % Critically low 36.0-48.0 [facility] Comment on above: Performed By: #### H GBHCT ####[facility] Fugkrfafwh[address] [place] [address]Dr. Charlee Pearson Hemoglobin (Bld) [Mass/Vol] 11.0 g/dL Critically low 12.0-16.0 [facility] Comment on above: Performed By: #### H GBHCT ####[facility] Xoxiychzez[address] [place] [address]Dr. Charlee Pearson LIPASEon 04-15-2022 Lipase [Catalytic activity/Vol] 62.0 U/L Critically low 73.0-393.0 [facility] Comment on above: Performed By: #### L IPA, CMP ####[facility] G[address]kpgbtqh8[address] [place], [place] [address]Dr. Charlee Pearson PROF 14(COMP METB)on 022 Albumin [Mass/Vol] 3.0 g/dL Critically low 3.4-5.0 [facility] Comment on above: Performed By: #### L IPA, CMP ####[facility] Gkxcyewjoo4[address] [place], [place] [address]Dr. Charlee Pearson Albumin/Globulin [Mass ratio] 0.7 {ratio} Normal [facility] Comment on above: Performed By: #### L IPA, CMP ####[facility] Dxouqtrixu[address] [place], [place] [address]Dr. Charlee Pearson ALP [Catalytic activity/Vol] 104 U/L Normal 46-116 [facility] Comment on above: Performed By: #### L IPA, CMP ####[facility] Ycspysjjfh44[address] [place], [place] [address]Dr. Charlee Pearson ALT [Catalytic activity/Vol] 17 U/L Normal 14-59 [facility] Comment on above: Performed By: #### L IPA, CMP ####[facility] [address]qz[address] [place], [place] [address]Dr. Charlee Pearson Anion gap [Moles/Vol] 10.3 mmol/L Normal [facility] Comment on above: Performed By: #### L IPA, CMP ####[facility] Ujhaaxrnit[address] [place], [place] [address]Dr. Charlee Pearson AST [Catalytic activity/Vol] 17 U/L Normal 15-37 [facility] Comment on above: Performed By: #### L IPA, CMP ####[facility] Jcplfbixpn0372 [place] [address]Dr. Charlee Pearson Bilirubin [Mass/Vol] 0.7 mg/dL Normal 0.2-1.0 [facility] Comment on above: Performed By: #### L IPA, CMP ####[facility] Higqftbfje4075[address] [place], [place] [address]Dr. Charlee Pearson Calcium [Mass/Vol] 8.7 mg/dL Normal 8.5-10.1 [facility] Comment on above: Performed By: #### L IPA, CMP ####[facility] Quwbzegwgw2726[address] [place], [place] [address]Dr. Charlee Pearson Chloride [Moles/Vol] 87 mmol/L Critically low 98-107 [facility] Comment on above: Performed By: #### L IPA, CMP ####[facility] Cotygkqmvj4217[address] [place], [place] [address]Dr. Charlee Pearson CO2 [Moles/Vol] 28.7 mmol/L Normal 21.0-32.0 [facility] Comment on above: Performed By: #### L IPA, CMP ####[facility] Vzgcgppyea98[address] [place], [place] [address]Dr. Charlee Pearson Creatinine [Mass/Vol] 0.45 mg/dL Critically low 0.55-1.02 [facility] Comment on above: Performed By: #### L IPA, CMP ####[facility] Dvamhewczs0000[address] [place], [place] [address]Dr. Charlee Pearson EGFR-AF BRAZILIAN >60 Normal >=60 [facility] Comment on above: Performed By: #### L IPA, CMP ####[facility] Slwqyiwzjp8[address] [place], [place] [address]Dr. Charlee Pearson EGFR-NON AF BRAZILIAN >60 Normal >=60 [facility] Comment on above: Performed By: #### L IPA, CMP ####[facility] Qrexjijrbr4440[address] [place], [place] [address]Dr. Charlee Pearson Globulin (S) [Mass/Vol] 4.3 g/dL Normal [facility] Comment on above: Performed By: #### L IPA, CMP ####[facility] Tehfvremws[address] [place] [address]Dr. Charlee Pearson Glucose [Mass/Vol] 108 mg/dL Critically high 74-106 [facility] Comment on above: Performed By: #### L IPA, CMP ####[facility] Plggxpfrxj2364 [place] [address]Dr. Charlee Pearson Potassium [Moles/Vol] 3.0 mmol/L Critically low 3.5-5.1 [facility] Comment on above: Performed By: #### L IPA, CMP ####[facility] Kpxxrrfpnd8795 [place] [address]Dr. Charlee Pearson Protein [Mass/Vol] 7.3 g/dL Normal 6.4-8.2 [facility] Comment on above: Performed By: #### L IPA, CMP ####[facility] Trlrrluopx7550 [place] [address]Dr. Charlee Pearson Sodium [Moles/Vol] 124 mmol/L Critically low 136-145 [facility] Comment on above: Result Comment: TEST REPEATED CRITICAL VALUE VERIFIED Performed By: #### L IPA, CMP ####[facility] Unufzmfjhf8813 [place] [address]Dr. Charlee Pearson Urea nitrogen [Mass/Vol] 5.0 mg/dL Critically low 7.0-18.0 [facility] Comment on above: Performed By: #### L IPA, CMP ####[facility] Bottdcvfxq9182 [place] [address]Dr. Charlee Pearson Urea nitrogen/Creatinine [Mass ratio] 11.1 mg/mg Normal [facility] Comment on above: Performed By: #### L IPA, CMP ####[facility] Usjmgthipu9098 [place] [address]Dr. Charlee Pearson PROF CHEM 8 (BAS METB)on Anion gap [Moles/Vol] 9.5 mmol/L Normal [facility] Comment on above: Performed By: #### B MP ####[facility] Pwnqfwxcel0770 [place] [address]Dr. Charlee Pearson Calcium [Mass/Vol] 8.6 mg/dL Normal 8.5-10.1 [facility] Comment on above: Performed By: #### B MP ####[facility] Hsegoifrkb6268 [place] [address]Dr. Charlee Pearson Chloride [Moles/Vol] 93 mmol/L Critically low 98-107 [facility] Comment on above: Performed By: #### B MP ####[facility] Lexpmnghpy5353 [place] [address]Dr. Charlee Pearson CO2 [Moles/Vol] 26.8 mmol/L Normal 21.0-32.0 [facility] Comment on above: Performed By: #### B MP ####[facility] Ffnyzofpnj8278[address] [place], [place] [address]Dr. Charlee Pearson Creatinine [Mass/Vol] 0.51 mg/dL Critically low 0.55-1.02 [facility] Comment on above: Performed By: #### B MP ####[facility] Pjgmcvagia4937[address] [place], [place] [address]Dr. Charlee Pearson EGFR-AF BRAZILIAN >60 Normal >=60 [facility] Comment on above: Performed By: #### B MP ####[facility] Rdcmxeckbv3063 [place] [address]Dr. Charlee Pearson EGFR-NON AF BRAZILIAN >60 Normal >=60 [facility] Comment on above: Performed By: #### B MP ####[facility] Hdwsozskjx8304[address] [place], [place] [address]Dr. Charlee Pearson Glucose [Mass/Vol] 86 mg/dL Normal 74-106 [facility] Comment on above: Performed By: #### B MP ####[facility] Giliuhsgfd499[address] [place], [place] [address]Dr. Charlee Pearson Potassium [Moles/Vol] 3.3 mmol/L Critically low 3.5-5.1 [facility] Comment on above: Performed By: #### B MP ####[facility] Rpypmsevog1751 [place] [address]Dr. Charlee Pearson Sodium [Moles/Vol] 126 mmol/L Critically low 136-145 [facility] Comment on above: Performed By: #### B MP ####[facility] Bjaocxgvor0011[address] [place], [place] [address]Dr. Charlee Pearson Urea nitrogen [Mass/Vol] 3.0 mg/dL Critically low 7.0-18.0 [facility] Comment on above: Performed By: #### B MP ####[facility] Lvmixhlahr5227[address] [place], [place] [address]Dr. Charlee Pearson Urea nitrogen/Creatinine [Mass ratio] 5.9 mg/mg Normal [facility] Comment on above: Performed By: #### B MP ####[facility] Zywahqlwwa4475[address] [place], [place] [address]Dr. Charlee Pearson SODIUM RANDOM URINEon 2021 Sodium (U) [Moles/Vol] 34 mmol/L Normal 30-90 [facility] Comment on above: Performed By: #### C ABBEY DU ####[facility] Wsxtxjddqo025[address] [place], [place] [address]Dr. Charlee Pearson TSHon 04-15-2022 TSH 5.719 uIU/mL Critically high 0.358-3.740 [facility] Comment on above: Performed By: #### T SH ####[facility] Cipspwsxlw9987[address] [place], [place] [address]Dr. Charlee Pearson URINE MICROSCOPIC ONLYon BACTERIA TRACE Abnormal NONE SEEN [facility] Comment on above: Performed By: #### U MICRO, ERUR ####[facility] Xfwamvyvaa3970[address] [place], [place] [address]Dr. Charlee Pearson Bacteria identified Cx Nom (U) NOT INDICATED Normal [facility] Comment on above: Performed By: #### U MICRO, ERUR ####[facility] Iydjsyvgnp6566[address] [place], [place] [address]Dr. Charlee Michel CAST NONE SEEN Normal NONE SEEN [facility] Comment on above: Performed By: #### U MICRO, ERUR ####[facility] Wtcuvabrlq4495 [place] [address]Dr. Charlee Pearson Crystals LM Nom (Urine sed) NONE SEEN Normal NONE SEEN [facility] Comment on above: Performed By: #### U MICRO, ERUR ####[facility] Rliwbvovjt1656 [place] [address]Dr. Charlee Pearson Epithelial cells LM Ql (Urine sed) FEW Abnormal NONE SEEN /RARE [facility] Comment on above: Performed By: #### U MICRO, ERUR ####[facility] Xszsspgkjp4132 [place] [address]Dr. Charlee Pearson MUCOUS NONE SEEN Normal NONE SEEN [facility] Comment on above: Performed By: #### U MICRO, ERUR ####[facility] Ltfyfjpseo0280 [place] [address]Dr. Charlee Pearson RBC 2-5 Abnormal 0-2 [facility] Comment on above: Performed By: #### U MICRO, ERUR ####[facility] Qlafdjbfqw[address] [place], [place] [address]Dr. Charlee Pearson WBC NONE SEEN Normal NONE SEEN [facility] Comment on above: Performed By: #### U MICRO, ERUR ####[facility] Xpdqkjzvla0713 [place] [address]Dr. Charlee Pearson XR ABD FLAT UP_PA Lorrie 04-15 XR ABD FLAT UP_PA CH Normal [facility] CBC AUTO DIFFon 03-30-2022 BASO # 0.0 103/ul Normal 0.0-0.1 [facility] Comment on above: Performed By: #### C BC ####[facility] Fnkrjeuwly1926[address] [place], [place] [address]Dr. Charlee Pearson Basophils/100 WBC (Bld) 0.1 % Critically low 0.2-2.0 [facility] Comment on above: Performed By: #### C BC ####[facility] Saslrthsyt4711[address] [place], [place] [address]Dr. Charlee Pearson EO # 0.0 103/ul Normal 0.0-0.7 [facility] Comment on above: Performed By: #### C BC ####[facility] Hsvclypbvh8546 [place] [address]Dr. Charlee Pearson Eosinophils/100 WBC (Bld) 0.2 % Critically low 0.9-7.0 [facility] Comment on above: Performed By: #### C BC ####[facility] Rxpduvmlxk4038 [place] [address]Dr. Charlee Pearson Erythrocyte distribution width (RBC) [Ratio] 12.7 % Normal 11.0-15.0 [facility] Comment on above: Performed By: #### C BC ####[facility] Ynlsbwnuga8480[address] [place], [place] [address]Dr. Charlee Pearson Hematocrit (Bld) [Volume fraction] 30.7 % Critically low 36.0-48.0 [facility] Comment on above: Performed By: #### C BC ####[facility] Dopilsgoqv873[address] [place], [place] [address]Dr. Charlee Pearson Hemoglobin (Bld) [Mass/Vol] 10.4 g/dL Critically low 12.0-16.0 [facility] Comment on above: Performed By: #### C BC ####[facility] Jpqpgpuebz9994[address] [place], [place] [address]Dr. Charlee Pearson IG # 0.12 10e3/ul Critically high 0.00-0.03 [facility] Comment on above: Performed By: #### C BC ####[facility] Ghgxiaydsi0167[address] [place], [place] [address]Dr. Charlee Pearson IG % 0.9 % Critically high 0.0-0.5 [facility] Comment on above: Performed By: #### C BC ####[facility] Zibyuagzbj2776[address] [place], [place] [address]Dr. Charlee Pearson LYMPH # 1.6 103/ul Normal 1.2-3.8 [facility] Comment on above: Performed By: #### C BC ####[facility] Wldojytasg8220[address] [place], [place] [address]Dr. Charlee Pearson Lymphocytes/100 WBC (Bld) 11.8 % Critically low 20.5-60.0 [facility] Comment on above: Performed By: #### C BC ####[facility] Mffxrtswvw1975 [place] [address]DrOttoniel Pearson MANUAL DIFF REQ NO Normal [facility] Comment on above: Performed By: #### C BC ####[facility] Jtljvetshm0664 [place] [address]DrOttoniel Pearson MCH (RBC) [Entitic mass] 31.2 pg Normal 26.7-34.0 [facility] Comment on above: Performed By: #### C BC ####[facility] Gmrukosfhw840[address] [place], [place] [address]Dr. Charlee Pearson MCHC (RBC) [Mass/Vol] 33.9 g/dL Normal 29.9-35.2 [facility] Comment on above: Performed By: #### C BC ####[facility] Ecddgdzqvz5359[address] [place], [place] [address]DrOttoniel Pearson MCV (RBC) [Entitic vol] 92.2 fL Normal 81.0-99.0 [facility] Comment on above: Performed By: #### C BC ####[facility] Bixbfowqsl350[address] [place], [place] [address]DrOttoniel Pearson MONO # 1.2 103/ul Critically high 0.3-0.8 [facility] Comment on above: Performed By: #### C BC ####[facility] Awfmfuzriw6508[address] [place], [place] [address]DrOttoniel Pearson Monocytes/100 WBC (Bld) 8.4 % Normal 1.7-12.0 [facility] Comment on above: Performed By: #### C BC ####[facility] Gtojdxwzhe3814[address] [place], [place] [address]DrOttoneil Pearson NEUT # 10.8 103/ul Critically high 1.4-6.5 [facility] Comment on above: Performed By: #### C BC ####[facility] Mxuczdbluh0011[address] [place], [place] [address]DrOttoniel Pearson Neutrophils/100 WBC (Bld) 78.6 % Critically high 43.0-75.0 [facility] Comment on above: Performed By: #### C BC ####[facility] Rqvifnahwo5084 [place] [address]Dr. Charlee Pearson Platelet mean volume (Bld) [Entitic vol] 9.4 fL Critically low 9.5-13.5 [facility] Comment on above: Performed By: #### C BC ####[facility] Nswjurqkwz4575 [place] [address]DrOttoniel Pearson PLT 340 103/ul Normal 150-450 [facility] Comment on above: Performed By: #### C BC ####[facility] Bbruiaaudv2095[address] [place], [place] [address]DrOttoniel Pearson RBC 3.33 106/ul Critically low 4.20-5.40 [facility] Comment on above: Performed By: #### C BC ####[facility] Vdaxlbnstc4192 [place] [address]DrOttoniel Pearson WBC 13.7 103/ul Critically high 4.0-11.0 [facility] Comment on above: Performed By: #### C BC ####[facility] Hrvvbutmqj3483[address] [place], [place] [address]Dr. Charlee Pearson PROF 14(COMP METB)on 022 Albumin [Mass/Vol] 2.4 g/dL Critically low 3.4-5.0 [facility] Comment on above: Performed By: #### C MP ####[facility] Zyrezgjmky3615 [place] [address]DrOttoniel Pearson Albumin/Globulin [Mass ratio] 0.8 {ratio} Normal [facility] Comment on above: Performed By: #### C MP ####[facility] Czysookhwg1944[address] [place], [place] [address]DrOttoniel Pearson ALP [Catalytic activity/Vol] 62 U/L Normal 46-116 [facility] Comment on above: Performed By: #### C MP ####[facility] Ykyzyfwfth8108[address] [place], [place] [address]DrOttoniel Pearson ALT [Catalytic activity/Vol] 46 U/L Normal 14-59 [facility] Comment on above: Performed By: #### C MP ####[facility] Bldlaezqqj6409 [place] [address]Dr. Claudetteclaudette Michel Anion gap [Moles/Vol] 8.0 mmol/L Normal [facility] Comment on above: Performed By: #### C MP ####[facility] Qwrhaykjrr5860[address] [place], [place] [address]Dr. Claudetteclaudette Michel AST [Catalytic activity/Vol] 14 U/L Critically low 15-37 [facility] Comment on above: Performed By: #### C MP ####[facility] Fvjeiakhwm8357[address] [place], [place] [address]Dr. Charlee Pearson Bilirubin [Mass/Vol] 0.4 mg/dL Normal 0.2-1.0 [facility] Comment on above: Performed By: #### C MP ####[facility] Nhpspqqyru035[address] [place], [place] [address]Dr. Charlee Pearson Calcium [Mass/Vol] 8.4 mg/dL Critically low 8.5-10.1 [facility] Comment on above: Performed By: #### C MP ####[facility] Wjuhocjnmm813[address] [place], [place] [address]Dr. Charlee Pearson Chloride [Moles/Vol] 99 mmol/L Normal 98-107 [facility] Comment on above: Performed By: #### C MP ####[facility] Knnnoipvjf9986[address] [place], [place] [address]Dr. Charlee Pearson CO2 [Moles/Vol] 30.9 mmol/L Normal 21.0-32.0 [facility] Comment on above: Performed By: #### C MP ####[facility] Dszfjdyqfp050[address] [place], [place] [address]Dr. Charlee Pearson Creatinine [Mass/Vol] 0.43 mg/dL Critically low 0.55-1.02 [facility] Comment on above: Performed By: #### C MP ####[facility] Tnkkcfazko0011[address] [place], [place] [address]Dr. Charlee Pearson EGFR-AF BRAZILIAN >60 Normal >=60 [facility] Comment on above: Performed By: #### C MP ####[facility] Vwtnnbdgie0028 [place] [id number]. Charlee Pearson EGFR-NON AF BRAZILIAN >60 Normal >=60 [facility] Comment on above: Performed By: #### C MP ####[facility] Yojkrffogy6272 [place], [place] [address]Gn. Charlee Pearson Globulin (S) [Mass/Vol] 3.0 g/dL Normal [facility] [place] [facility] Comment on above: Performed By: #### C MP ####[facility] Lwytxcngxq4072 [place] [id number]. Charlee Pearson Glucose [Mass/Vol] 82 mg/dL Normal 74-106 [facility] Comment on above: Performed By: #### C MP ####[facility] Npgdcmjuex1843 [place] [id number]. Charlee Pearson Potassium [Moles/Vol] 3.9 mmol/L Normal 3.5-5.1 [facility] Comment on above: Performed By: #### C MP ####[facility] Bxilvkwqsp2953 [place] [id number]. Charlee Pearson Protein [Mass/Vol] 5.4 g/dL Critically low 6.4-8.2 [facility] Comment on above: Performed By: #### C MP ####[facility] Hikyqifjnk6325 [place] [address]Dr. Charlee Pearson Sodium [Moles/Vol] 134 mmol/L Critically low 136-145 [facility] Comment on above: Performed By: #### C MP ####[facility] Mveoazjxzy6750 [place] [address]Dr. Charlee Pearson Urea nitrogen [Mass/Vol] 11.0 mg/dL Normal 7.0-18.0 [facility] Comment on above: Performed By: #### C MP ####[facility] Lsxeedqocd5844 [place] [id number]. Charlee Pearson Urea nitrogen/Creatinine [Mass ratio] 25.6 mg/mg Normal [facility] Comment on above: Performed By: #### C MP ####[facility] Zkvhxytkhq6746 [place] [address]Dr. Charlee Pearson CBC AUTO DIFFon 03-29-2022 BASO # 0.0 103/ul Normal 0.0-0.1 [facility] Comment on above: Performed By: #### C BC ####[facility] Wlxqyashoz6368[address] [place], [place] [address]Dr. Charlee Pearson Basophils/100 WBC (Bld) 0.2 % Normal 0.2-2.0 [facility] Comment on above: Performed By: #### C BC ####[facility] Vzuiqpoumq7065[address] [place], [place] [address]Dr. Charlee Pearson EO # 0.0 103/ul Normal 0.0-0.7 [facility] Comment on above: Performed By: #### C BC ####[facility] Jgwsnvxwwc299[address] [place], [place] [address]Dr. Charlee Pearson Eosinophils/100 WBC (Bld) 0.1 % Critically low 0.9-7.0 [facility] Comment on above: Performed By: #### C BC ####[facility] Zmgnrfdidv9407[address] [place], [place] [address]Dr. Charlee Pearson Erythrocyte distribution width (RBC) [Ratio] 13.1 % Normal 11.0-15.0 [facility] Comment on above: Performed By: #### C BC ####[facility] Bwueymchbr475[address] [place], [place] [address]Dr. Charlee Pearson Hematocrit (Bld) [Volume fraction] 29.3 % Critically low 36.0-48.0 [facility] Comment on above: Performed By: #### C BC ####[facility] Hmrbwjioch6855[address] [place], [place] [address]Dr. Charlee Pearson Hemoglobin (Bld) [Mass/Vol] 10.0 g/dL Critically low 12.0-16.0 [facility] Comment on above: Performed By: #### C BC ####[facility] Aawlmvlwrt6448[address] [place], [place] [address]DrOttoniel Pearson IG # 0.23 10e3/ul Critically high 0.00-0.03 [facility] Comment on above: Performed By: #### C BC ####[facility] Etgmnirhtn6955 [place] [id number] Wilkinsclaudette Michel IG % 1.2 % Critically high 0.0-0.5 [facility] Comment on above: Performed By: #### C BC ####[facility] Miyzqmtebf7579[address] [place], [place] [address]DrOttoniel Pearson LYMPH # 1.3 103/ul Normal 1.2-3.8 [facility] Comment on above: Performed By: #### C BC ####[facility] Qokdutrvjn0417[address] [place], [place] [address]DrOttoniel Pearson Lymphocytes/100 WBC (Bld) 7.0 % Critically low 20.5-60.0 [facility] Comment on above: Performed By: #### C BC ####[facility] Dgzrtpbzdb937[address] [place], [place] [address]DrOttoniel Pearson MANUAL DIFF REQ NO Normal [facility] Comment on above: Performed By: #### C BC ####[facility] Fqacqlmswo5567[address] [place], [place] [address]DrOttoniel Wilkinsclaudette Michel MCH (RBC) [Entitic mass] 31.8 pg Normal 26.7-34.0 [facility] Comment on above: Performed By: #### C BC ####[facility] Llthswnwxz2478[address] [place], [place] [address]DrOttoniel Pearson MCHC (RBC) [Mass/Vol] 34.1 g/dL Normal 29.9-35.2 [facility] Comment on above: Performed By: #### C BC ####[facility] Necyfvoqrh182[address] [place], [place] [address]DrOttoniel Pearson MCV (RBC) [Entitic vol] 93.3 fL Normal 81.0-99.0 [facility] Comment on above: Performed By: #### C BC ####[facility] Ymxbgzjgqw6726[address] [place], [place] [address]DrOttoniel Pearson MONO # 1.2 103/ul Critically high 0.3-0.8 [facility] Comment on above: Performed By: #### C BC ####[facility] Hcmgbheljw7733 [place] [address]Dr. Charlee Pearson Monocytes/100 WBC (Bld) 6.1 % Normal 1.7-12.0 [facility] Comment on above: Performed By: #### C BC ####[facility] Fmwlftrvzg1803 [place] [address]Dr. Charlee Pearson NEUT # 16.2 103/ul Critically high 1.4-6.5 [facility] Comment on above: Performed By: #### C BC ####[facility] Oglqrqmzyd7093 [place] [address]Dr. Charlee Pearson Neutrophils/100 WBC (Bld) 85.4 % Critically high 43.0-75.0 [facility] Comment on above: Performed By: #### C BC ####[facility] Qhvwjqbuby499[address] [place], [place] [address]Dr. Charlee Pearson Platelet mean volume (Bld) [Entitic vol] 9.2 fL Critically low 9.5-13.5 [facility] Comment on above: Performed By: #### C BC ####[facility] Auxpczauqh1390 [place] [address]Dr. Charlee Pearson PLT 327 103/ul Normal 150-450 [facility] Comment on above: Performed By: #### C BC ####[facility] Nkmpkgqcao6477 [place] [id number]. Charlee Pearson RBC 3.14 106/ul Critically low 4.20-5.40 [facility] Comment on above: Performed By: #### C BC ####[facility] Ejvibzkfmj3876 [place] [id number]. Charlee Pearson WBC 18.9 103/ul Critically high 4.0-11.0 [facility] Comment on above: Performed By: #### C BC ####[facility] Naevwitmra2426 [place] [address]Dr. Charlee Michel HEPATITIS PANEL, ACUTEon HBsAg Screen Negative Normal Negative [facility] Comment on above: Performed By: #### H EPACUT ####[facility] Mvlnyxnwnw3447 [place] [address]DrOttoniel Pearson HCV AB 0.1 s/co ratio Normal 0.0-0.9 [facility] Comment on above: Performed By: #### H EPACUT ####[facility] Nlmfrhadda3980 [place] [address]Dr. Charlee Pearson Hep A Ab, IgM Negative Normal Negative [facility] Comment on above: Performed By: #### H EPACUT ####[facility] Fuvffybjav7132 [place] [address]Dr. Charlee Pearson Hep B Core Ab, IgM Negative Normal Negative [facility] Comment on above: Performed By: #### H EPACUT ####[facility] Zvxqjleyjz4326 [place] [address]DrOttoniel Pearson Interpretation: Comment Normal [facility] Comment on above: Result Comment: Nega tiveNot infected with HCV, unless recent infection is suspected or otherevidence exists to indicate HCV infection. Performed By: #### H EPACUT ####[facility] Inwaouyple6191 [place] [address]DrOttoniel Pearson PROF 14(COMP METB)on 022 Albumin [Mass/Vol] 2.2 g/dL Critically low 3.4-5.0 [facility] Comment on above: Performed By: #### C MP ####[facility] Quixmgvbnx5584 [place] [address]DrOttoniel Pearson Albumin/Globulin [Mass ratio] 0.8 {ratio} Normal [facility] Comment on above: Performed By: #### C MP ####[facility] Cjuhmcovxx1331 [place] [address]DrOttoniel Pearson ALP [Catalytic activity/Vol] 55 U/L Normal 46-116 [facility] Comment on above: Performed By: #### C MP ####[facility] Pefvrtoevm0946 [place] [address]Dr. Charlee Pearson ALT [Catalytic activity/Vol] 49 U/L Normal 14-59 [facility] Comment on above: Performed By: #### C MP ####[facility] Tkweqdgdnz2522 [place] [place] [address]Dr. Charlee Pearson Anion gap [Moles/Vol] 7.0 mmol/L Normal [facility] Comment on above: Performed By: #### C MP ####[facility] Fekkcpbmie[address] [place], [place] [address]Dr. Charlee Pearson AST [Catalytic activity/Vol] 13 U/L Critically low 15-37 [facility] Comment on above: Performed By: #### C MP ####[facility] Ljslzpwanc2288[address] [place], [place] [address]Dr. Charlee Pearson Bilirubin [Mass/Vol] 0.4 mg/dL Normal 0.2-1.0 [facility] Comment on above: Performed By: #### C MP ####[facility] Dpcdfitnvn116[address] [place], [place] [address]Dr. Charlee Pearson Calcium [Mass/Vol] 8.3 mg/dL Critically low 8.5-10.1 [facility] Comment on above: Performed By: #### C MP ####[facility] Hhcflsgpbi59[address] [place], [place] [address]Dr. Charlee Pearson Chloride [Moles/Vol] 100 mmol/L Normal 98-107 [facility] Comment on above: Performed By: #### C MP ####[facility] Yjfxetemxu1216[address] [place], [place] [address]Dr. Charlee Pearson CO2 [Moles/Vol] 31.5 mmol/L Normal 21.0-32.0 [facility] Comment on above: Performed By: #### C MP ####[facility] Fhpgufxrtf9104[address] [place], [place] [address]Dr. Charlee Pearson Creatinine [Mass/Vol] 0.48 mg/dL Critically low 0.55-1.02 [facility] Comment on above: Performed By: #### C MP ####[facility] Txcdkokbtz257[address] [place], [place] [address]Dr. Charlee Pearson EGFR-AF BRAZILIAN >60 Normal >=60 [facility] Comment on above: Performed By: #### C MP ####[facility] Plsybqffaj6838 [place] [id number]. Charlee Pearson EGFR-NON AF BRAZILIAN >60 Normal >=60 [facility] Comment on above: Performed By: #### C MP ####[facility] Etyiikezfq9032 [place] [id number]. Charlee Pearson Globulin (S) [Mass/Vol] 2.8 g/dL Normal T [facility] [place] [facility] Comment on above: Performed By: #### C MP ####[facility] Fwhpgwjrxc5110 [place] [address]Dr. Charlee Pearson Glucose [Mass/Vol] 84 mg/dL Normal 74-106 [facility] Comment on above: Performed By: #### C MP ####[facility] Bykerweaks[address] [place], [place] [address]Dr. Charlee Pearson Potassium [Moles/Vol] 3.5 mmol/L Normal 3.5-5.1 [facility] Comment on above: Performed By: #### C MP ####[facility] Eqgyjnapfs0644[address] [place], [place] [address]Dr. Charlee Pearson Protein [Mass/Vol] 5.0 g/dL Critically low 6.4-8.2 [facility] Comment on above: Performed By: #### C MP ####[facility] Enspzwkrel753[address] [place], [place] [address]Dr. Charlee Pearson Sodium [Moles/Vol] 135 mmol/L Critically low 136-145 [facility] Comment on above: Performed By: #### C MP ####[facility] Rrgklehvuj7[address] [place], [place] [id number]. Charlee Pearson Urea nitrogen [Mass/Vol] 14.0 mg/dL Normal 7.0-18.0 [facility] Comment on above: Performed By: #### C MP ####[facility] Fgaqkuwqrv40[address] [place], [place] [address]Dr. Charlee Pearson Urea nitrogen/Creatinine [Mass ratio] 29.2 mg/mg Normal [facility] Comment on above: Performed By: #### C MP ####[facility] Uyumcbacuf8512 [place] [address]Dr. Charlee Michel CBC AUTO DIFFon 03-28-2022 BASO # 0.0 103/ul Normal 0.0-0.1 [facility] Comment on above: Performed By: #### C BC ####[facility] Mpxwwsivhh607[address] [place], [place] [address]Dr. Charlee Pearson Basophils/100 WBC (Bld) 0.1 % Critically low 0.2-2.0 [facility] Comment on above: Performed By: #### C BC ####[facility] Qwimrvorwl325130 [address] [place], [place] [address]Dr. Claudetteclaudette Pearson EO # 0.0 103/ul Normal 0.0-0.7 [facility] Comment on above: Performed By: #### C BC ####[facility] Odfkrtfmuz8532[address] [place], [place] [address]Dr. Charlee Pearson Eosinophils/100 WBC (Bld) 0.1 % Critically low 0.9-7.0 [facility] Comment on above: Performed By: #### C BC ####[facility] Yueglwflku5325[address] [place], [place] [address]Dr. Charlee Michel Erythrocyte distribution width (RBC) [Ratio] 13.0 % Normal 11.0-15.0 [facility] Comment on above: Performed By: #### C BC ####[facility] Hisvwxyrzn6768[address] [place], [place] [address]Dr. Charlee Michel Hematocrit (Bld) [Volume fraction] 29.2 % Critically low 36.0-48.0 [facility] Comment on above: Performed By: #### C BC ####[facility] Jtsxlynrhn5410[address] [place], [place] [address]Dr. Claudetteclaudette Pearson Hemoglobin (Bld) [Mass/Vol] 9.9 g/dL Critically low 12.0-16.0 [facility] Comment on above: Performed By: #### C BC ####[facility] Iiamxyikbi8710[address] [place], [place] [address]Dr. Charlee Pearson IG # 0.36 10e3/ul Critically high 0.00-0.03 [facility] Comment on above: Performed By: #### C BC ####[facility] Fdobkyuwbj2349 [place] [address]DrOttoniel Charlee Pearson IG % 1.9 % Critically high 0.0-0.5 [facility] Comment on above: Performed By: #### C BC ####[facility] Jvoiwcsypy5346 [place] [address]DrOttoniel Charlee Michel LYMPH # 1.3 103/ul Normal 1.2-3.8 [facility] Comment on above: Performed By: #### C BC ####[facility] Ngxsqjuuyb0636 [place] [address]DrOttoniel Charlee Michel Lymphocytes/100 WBC (Bld) 6.4 % Critically low 20.5-60.0 [facility] Comment on above: Performed By: #### C BC ####[facility] Vdpdnchhsj5976 [place] [address]DrOttoniel Charlee Michel MANUAL DIFF REQ NO Normal [facility] Comment on above: Performed By: #### C BC ####[facility] Qqcvaeadsj3339 [place] [address]DrOttoniel Charlee Pearson MCH (RBC) [Entitic mass] 31.6 pg Normal 26.7-34.0 [facility] Comment on above: Performed By: #### C BC ####[facility] Flrsokkspa5522 [place] [address]DrOttoniel Charlee Pearson MCHC (RBC) [Mass/Vol] 33.9 g/dL Normal 29.9-35.2 [facility] Comment on above: Performed By: #### C BC ####[facility] Elppycgbpi4582 [place] [address]DrOttoniel Charlee Michel MCV (RBC) [Entitic vol] 93.3 fL Normal 81.0-99.0 [facility] Comment on above: Performed By: #### C BC ####[facility] Zljcvwiafz1992 [place] [address]Dr. Charlee Pearson MONO # 1.3 103/ul Critically high 0.3-0.8 [facility] Comment on above: Performed By: #### C BC ####[facility] Bqpibokxvu1064 [place] [address]Dr. Charlee Pearson Monocytes/100 WBC (Bld) 6.7 % Normal 1.7-12.0 [facility] Comment on above: Performed By: #### C BC ####[facility] Mryppkeuil0999 [place] [address]Dr. Charlee Pearson NEUT # 16.5 103/ul Critically high 1.4-6.5 [facility] Comment on above: Performed By: #### C BC ####[facility] Iutqqtzxtk1134 [place] [address]Dr. Charlee Pearson Neutrophils/100 WBC (Bld) 84.8 % Critically high 43.0-75.0 [facility] Comment on above: Performed By: #### C BC ####[facility] Fovcmjrzqf7708 [place] [address]Dr. Charlee Pearson Platelet mean volume (Bld) [Entitic vol] 9.1 fL Critically low 9.5-13.5 [facility] Comment on above: Performed By: #### C BC ####[facility] Jpfxgynruz5584 [place] [address]Dr. Charlee Pearson PLT 355 103/ul Normal 150-450 [facility] Comment on above: Performed By: #### C BC ####[facility] Eslitasqsf2728 [place] [address]Dr. Charlee Michel RBC 3.13 106/ul Critically low 4.20-5.40 [facility] Comment on above: Performed By: #### C BC ####[facility] Nsmmiuftzg9273 [place] [address]Dr. Charlee Michel WBC 19.4 103/ul Critically high 4.0-11.0 [facility] Comment on above: Performed By: #### C BC ####[facility] Turaqqlksk9687 [place] [address]Dr. Charlee Pearson PROF 14(COMP METB)on 022 Albumin [Mass/Vol] 2.2 g/dL Critically low 3.4-5.0 [facility] Comment on above: Performed By: #### C MP ####[facility] Oodxgfkjew5095 [place] [address]Dr. Charlee Pearson Albumin/Globulin [Mass ratio] 0.8 {ratio} Normal [facility] Comment on above: Performed By: #### C MP ####[facility] Ehyttczzfh6979[address] [place], [place] [address]Dr. Charlee Pearson ALP [Catalytic activity/Vol] 56 U/L Normal 46-116 [facility] Comment on above: Performed By: #### C MP ####[facility] Ktzsxwxhwi0548[address] [place], [place] [address]Dr. Charlee Pearson ALT [Catalytic activity/Vol] 61 U/L Critically high 14-59 [facility] Comment on above: Performed By: #### C MP ####[facility] Mwbxtguuua2865[address] [place], [place] [address]Dr. Charlee Pearson Anion gap [Moles/Vol] 7.9 mmol/L Normal [facility] Comment on above: Performed By: #### C MP ####[facility] Dieiqkmvzq7548[address] [place], [place] [address]Dr. Charlee Pearson AST [Catalytic activity/Vol] 15 U/L Normal 15-37 [facility] Comment on above: Performed By: #### C MP ####[facility] Kstpbjocru3798[address] [place], [place] [address]Dr. Charlee Pearson Bilirubin [Mass/Vol] 0.4 mg/dL Normal 0.2-1.0 [facility] Comment on above: Performed By: #### C MP ####[facility] Inkrhyuvox179[address] [place], [place] [address]Dr. Charlee Pearson Calcium [Mass/Vol] 8.3 mg/dL Critically low 8.5-10.1 [facility] Comment on above: Performed By: #### C MP ####[facility] Xxzvenesjj046130 [address] [place], [place] [address]Dr. Charlee Pearson Chloride [Moles/Vol] 99 mmol/L Normal 98-107 [facility] Comment on above: Performed By: #### C MP ####[facility] Agavmavelu9375 [place] [address]Dr. Charlee Pearson CO2 [Moles/Vol] 31.9 mmol/L Normal 21.0-32.0 [facility] Comment on above: Performed By: #### C MP ####[facility] Wwtehqvark1250[address] [place], [place] [address]Dr. Charlee Michel Creatinine [Mass/Vol] 0.48 mg/dL Critically low 0.55-1.02 [facility] Comment on above: Performed By: #### C MP ####[facility] Pbsaaxpllo4357[address] [place], [place] [address]Dr. Charlee Michel EGFR-AF BRAZILIAN >60 Normal >=60 [facility] Comment on above: Performed By: #### C MP ####[facility] Kyawlpjbhe8930[address] [place], [place] [address]Dr. Charlee Michel EGFR-NON AF BRAZILIAN >60 Normal >=60 [facility] Comment on above: Performed By: #### C MP ####[facility] Qmfvckjide3923[address] [place], [place] [address]Dr. Charlee Michel Globulin (S) [Mass/Vol] 2.9 g/dL Normal T [facility] Comment on above: Performed By: #### C MP ####[facility] Zbrgalkblh2250[address] [place], [place] [address]Dr. Charlee Michel Glucose [Mass/Vol] 85 mg/dL Normal 74-106 [facility] Comment on above: Performed By: #### C MP ####[facility] Nmojwrroqj4109[address] [place], [place] [address]Dr. Claudetteclaudette Michel Potassium [Moles/Vol] 3.8 mmol/L Normal 3.5-5.1 [facility] Comment on above: Performed By: #### C MP ####[facility] Pvosuamnoh426330 [address] [place], [place] [address]Dr. Charlee Pearson Protein [Mass/Vol] 5.1 g/dL Critically low 6.4-8.2 [facility] Comment on above: Performed By: #### C MP ####[facility] Ixuwthoilh5367[address] [place], [place] [address]Dr. Charlee Pearson Sodium [Moles/Vol] 135 mmol/L Critically low 136-145 [facility] Comment on above: Performed By: #### C MP ####[facility] Acjzjdzhxo036[address] [place], [place] [address]Dr. Claudetteclaudette Michel Urea nitrogen [Mass/Vol] 15.0 mg/dL Normal 7.0-18.0 [facility] Comment on above: Performed By: #### C MP ####[facility] Jdywbohupp9549[address] [place], [place] [address]Dr. Charlee Pearson Urea nitrogen/Creatinine [Mass ratio] 31.2 mg/mg Normal [facility] Comment on above: Performed By: #### C MP ####[facility] Cgocaxgidq2374[address] [place], [place] [address]Dr. Claudetteclaudette Michel XR CHEST 2 Von 03-28-2022 XR CHEST 2 V Normal [facility] CBC W MANUAL DIFFon 03-27-20 22 ATYPICAL LYMPH # Normal [facility] Comment on above: Performed By: #### C BCMAN ####[facility] Rnmdszirrv3709[address] [place], [place] [address]Dr. Claudetteclaudette Michel ATYPICAL LYMPH % Normal [facility] Comment on above: Performed By: #### C BCMAN ####[facility] Savnpavcvz4128[address] [place], [place] [address]Dr. Charlee Pearson BAND # 0.0 103/ul Normal 0.0-0.3 [facility] Comment on above: Performed By: #### C BCMAN ####[facility] Lackefgmkj2424[address] [place], [place] [address]Dr. Charlee Pearson BAND % 0 % Normal 0-5 [facility] Comment on above: Performed By: #### C BCMAN ####[facility] Fdozpaoydz0730[address] [place], [place] [address]Dr. Charlee Pearson BASOM # 0.00 103/ul Normal 0.00-0.10 [facility] Comment on above: Performed By: #### C BCJARON ####[facility] Updknbwwpf6207 [place] [address]Dr. Charlee Pearson BASOM % 0.0 % Critically low 0.2-2.0 [facility] Comment on above: Performed By: #### C BCJARON ####[facility] Bqysfzdhok1851 [place] [address]Dr. Charlee Pearson BLAST # Normal [facility] Comment on above: Performed By: #### C BCJARON ####[facility] Wkkrjjqwmo9837 [place] [address]Dr. Charlee Pearson BLAST % Normal [facility] Comment on above: Performed By: #### C KERRIE ####[facility] Fxsflqivhm7457[address] [place], [place] [address]Dr. Charlee Pearson CORRECTED WBC Normal 4.0-11.0 [facility] Comment on above: Performed By: #### C KERRIE ####[facility] Ijjvqlzbrk7876[address] [place], [place] [address]Dr. Charlee Pearson EOS # 0.00 103/ul Normal 0.00-0.70 [facility] Comment on above: Performed By: #### C KERRIE ####[facility] Tfgcxrzluf6649[address] [place], [place] [address]Dr. Charlee Pearson EOS% 0.0 % Critically low 0.9-7.0 [facility] Comment on above: Performed By: #### C KERRIE ####[facility] Bblrtgzxyw2863[address] [place], [place] [address]Dr. Charlee Pearson HCT 33.0 % Critically low 36.0-48.0 [facility] Comment on above: Performed By: #### C KERRIE ####[facility] Zdafclafwi832[address] [place], [place] [address]Dr. Charlee Pearson HGB 11.0 g/dl Critically low 12.0-16.0 [facility] Comment on above: Performed By: #### C KERRIE ####[facility] Cxsdmzqmjp3458[address] [place], [place] [address]Dr. Charlee Pearson LYMPHM # 0.65 103/ul Critically low 1.20-3.80 [facility] Comment on above: Performed By: #### C KERRIE ####[facility] Jlxdrltpbf1825 [place] [address]Dr. Charlee Pearson LYMPHM% 3.0 % Critically low 20.5-60.0 [facility] Comment on above: Performed By: #### C KERRIE ####[facility] Vywupxqoes8318 [place] [address]Dr. Charlee Pearson MCH 31.0 pg Normal 26.7-34.0 [facility] Comment on above: Performed By: #### C KERRIE ####[facility] Upobrmiwdt6380[address] [place], [place] [address]Dr. Charlee Paerson MCHC 33.3 g/dl Normal 29.9-35.2 [facility] Comment on above: Performed By: #### C KERRIE ####[facility] Vmtesayrao1436[address] [place], [place] [address]Dr. Charlee Pearson MCV 93.0 fL Normal 81.0-99.0 [facility] Comment on above: Performed By: #### C KERRIE ####[facility] Jhamzqlkqm5017[address] [place], [place] [address]Dr. Charlee Pearson METAMYELOCYTE # Normal [facility] Comment on above: Performed By: #### C KERRIE ####[facility] Abssklaxki6516 [place] [address]Dr. Charlee Pearson METAMYELOCYTE % Normal [facility] Comment on above: Performed By: #### C KERRIE ####[facility] Ulratdakaw8049 [place] [address]Dr. Charlee Pearson MONOM# 0.00 103/ul Critically low 0.30-0.80 [facility] Comment on above: Performed By: #### C KERRIE ####[facility] Galuvdovyo0742 [place] [address]Dr. Charlee Pearson MONOM% 0.0 % Critically low 1.7-12.0 [facility] Comment on above: Performed By: #### C KERRIE ####[facility] Esyavjuiqk2469 [place], [place] [address]Tv. Charlee Pearson MPV 9.2 fL Critically low 9.5-13.5 [facility] Comment on above: Performed By: #### C KERRIE ####[facility] Wwtykxykaf6778 [place], [place] [address]Sv. Charlee Pearson MYELOCYTE # Normal [facility] Comment on above: Performed By: #### C KERRIE ####[facility] Dszxgehies2721 [place], [place] [address]Vg. Charlee Pearson MYELOCYTE % Normal [facility] Comment on above: Performed By: #### C KERRIE ####[facility] Herqnpqvye6319 [place] [id number]. Charlee Pearson NRBC Normal [facility] Comment on above: Performed By: #### C KERRIE ####[facility] Sxedmbbbbt1137 [place] [id number]. Charlee Pearson PLT 402 103/ul Normal 150-450 [facility] Comment on above: Performed By: #### C KERRIE ####[facility] Ulldunvczv9910 [place] [id number]. Charlee Pearson RBC 3.55 106/ul Critically low 4.20-5.40 [facility] Comment on above: Performed By: #### C KERRIE ####[facility] Atnogvlaip5830 [place] [id number]. Charlee Pearson RDW 13.0 % Normal 11.0-15.0 [facility] Comment on above: Performed By: #### C KERRIE ####[facility] Wcniwtubdq3697 [place], [place] [address]Ga. Charlee Pearson SEG # 21.15 103/ul Critically high 1.40-6.50 [facility] Comment on above: Performed By: #### C KERRIE ####[facility] Uncckueqhn2616 [place] [id number]. Charlee Pearson SEG % 97.0 % Critically high 43.0-75.0 [facility] Comment on above: Performed By: #### C BCMAN ####[facility] Pgpmpmyukg6471 [place] [id number]. Charlee Pearson WBC 21.8 103/ul Critically high 4.0-11.0 [facility] Comment on above: Performed By: #### C BCMAN ####[facility] Ptbtwdwnyq0872 [place] [address]Dr. Charlee Pearson PROF 14(COMP METB)on 022 Albumin [Mass/Vol] 2.4 g/dL Critically low 3.4-5.0 Th [facility] Comment on above: Performed By: #### C MP ####[facility] Xjmiwnvrsb1350 [place] [address]Dr. Charlee Pearson Albumin/Globulin [Mass ratio] 0.8 {ratio} Normal [facility] Comment on above: Performed By: #### C MP ####[facility] Wmvepbartk9751 [place] [address]Dr. Charlee Pearson ALP [Catalytic activity/Vol] 61 U/L Normal 46-116 [facility] Comment on above: Performed By: #### C MP ####[facility] Ezmsqhbdfj8[address] [place], [place] [address]Dr. Charlee Pearson ALT [Catalytic activity/Vol] 85 U/L Critically high 14-59 [facility] Comment on above: Performed By: #### C MP ####[facility] Nhiclephqh0851 [place] [address]Dr. Charlee Pearson Anion gap [Moles/Vol] 8.2 mmol/L Normal [facility] Comment on above: Performed By: #### C MP ####[facility] Xzxppunzcu5529 [place] [address]Dr. Charlee Pearson AST [Catalytic activity/Vol] 21 U/L Normal 15-37 [facility] Comment on above: Performed By: #### C MP ####[facility] Kgmselpdfk8663 [place] [address]Dr. Charlee Pearson Bilirubin [Mass/Vol] 0.5 mg/dL Normal 0.2-1.0 [facility] Comment on above: Performed By: #### C MP ####[facility] Ukanadcpep7612 [place] [address]Dr. Charlee Pearson Calcium [Mass/Vol] 8.5 mg/dL Normal 8.5-10.1 [facility] Comment on above: Performed By: #### C MP ####[facility] Fslqlmmrfd2725 [place] [address]Dr. Charlee Pearson Chloride [Moles/Vol] 99 mmol/L Normal 98-107 [facility] Comment on above: Performed By: #### C MP ####[facility] Flzjecvgln6466 [place] [address]Dr. Charlee Pearson CO2 [Moles/Vol] 32.7 mmol/L Critically high 21.0-32.0 [facility] Comment on above: Performed By: #### C MP ####[facility] Omqbdolwvq8757 [place] [address]Dr. Charlee Pearson Creatinine [Mass/Vol] 0.52 mg/dL Critically low 0.55-1.02 [facility] Comment on above: Performed By: #### C MP ####[facility] Dvhqajixqr2952 [place] [address]Dr. Charlee Pearson EGFR-AF BRAZILIAN >60 Normal >=60 [facility] Comment on above: Performed By: #### C MP ####[facility] Xgpqmafqnc5324 [place] [address]Dr. Charlee Pearson EGFR-NON AF BRAZILIAN >60 Normal >=60 [facility] Comment on above: Performed By: #### C MP ####[facility] Csuemzjcma9004 [place] [address]Dr. Charlee Pearson Globulin (S) [Mass/Vol] 3.2 g/dL Normal [facility] Comment on above: Performed By: #### C MP ####[facility] Dydbryzzle2422 [place] [address]Dr. Charlee Pearson Glucose [Mass/Vol] 139 mg/dL Critically high 74-106 [facility] Comment on above: Performed By: #### C MP ####[facility] Ocqsgynngq6852 [place] [address]Dr. Charlee Pearson Potassium [Moles/Vol] 3.9 mmol/L Normal 3.5-5.1 [facility] Comment on above: Performed By: #### C MP ####[facility] Qbsgmuivbd1723 [place] [address]Dr. Charlee Pearson Protein [Mass/Vol] 5.6 g/dL Critically low 6.4-8.2 [facility] Comment on above: Performed By: #### C MP ####[facility] Mmwezwcnyr01[address] [place], [place] [address]Dr. Charlee Pearson Sodium [Moles/Vol] 136 mmol/L Normal 136-145 [facility] Comment on above: Performed By: #### C MP ####[facility] Mwlqvfvkof6832[address] [place], [place] [address]Dr. Charlee Pearson Urea nitrogen [Mass/Vol] 15.0 mg/dL Normal 7.0-18.0 [facility] Comment on above: Performed By: #### C MP ####[facility] Lmibigkxmg7511[address] [place], [place] [address]Dr. Charlee Pearson Urea nitrogen/Creatinine [Mass ratio] 28.8 mg/mg Normal [facility] Comment on above: Performed By: #### C MP ####[facility] Haqxyfphwx1397[address] [place], [place] [address]Dr. Charlee Pearson UA (CLEAN/CATCH) HEALTH CLAIMS EXAMINER/MICRO I F IND.on 03-27-2022 Bilirubin Ql (U) Negative Normal NEGATIVE [facility] Comment on above: Performed By: #### U ACSIND ####[facility] Iejrxmpckf6626[address] [place], [place] [address]Dr. Charlee Pearson Clarity (U) CLEAR Normal CLEAR [facility] Comment on above: Performed By: #### U ACSIND ####[facility] Iqotfrnjjr2438[address] [place], [place] [address]Dr. Charlee Pearson Color (U) LT. YELLOW Normal YELLOW [facility] Comment on above: Performed By: #### U ACSIND ####[facility] Tjdoebzntb7239 [place] [address]Dr. Charlee Pearson Glucose Ql (U) Negative Normal NEGATIVE [facility] Comment on above: Performed By: #### U ACSIND ####[facility] Ogabnusplm8184 [place] [address]Dr. Charlee Pearson Hemoglobin Ql (U) Negative Normal NEGATIVE [facility] Comment on above: Performed By: #### U ACSIND ####[facility] Vcnmylqmbu1297 [place] [address]Dr. Charlee Pearson Ketones Ql (U) Negative Normal NEGATIVE [facility] Comment on above: Performed By: #### U ACSIND ####[facility] Vkduohlmjb6329[address] [place], [place] [address]Dr. Charlee Pearson LEUKOCYTES Negative Normal NEGATIVE [facility] Comment on above: Performed By: #### U ACSIND ####[facility] Xoyxgnplkz360[address] [place], [place] [address]Dr. Charlee Pearson Nitrite Ql (U) Negative Normal NEGATIVE The [facility] Comment on above: Performed By: #### U ACSIND ####[facility] Keyrwsuajf[address] [place], [place] [address]Dr. Charlee Pearson pH (U) 7.5 [pH] Normal 5-9 [facility] Comment on above: Performed By: #### U ACSIND ####[facility] Ycqgjlyvit0[address] [place], [place] [address]Dr. Charlee Pearson SPEC GRAVITY 1.010 Normal 1.005-<=1.025 [facility] Comment on above: Performed By: #### U ACSIND ####[facility] Hzxenrxkym01[address] [place], [place] [address]Dr. Charlee Pearson UA PROTEIN Negative Normal NEGATIVE/ TRACE [facility] Comment on above: Performed By: #### U ACSIND ####[facility] Zvohagqqqs95[address] [place], [place] [address]Dr. Charlee Michel UR MICRO IND NOT INDICATED Normal [facility] Comment on above: Performed By: #### U ACSIND ####[facility] Rzhuefasng[address] [place], [place] [address]Dr. Charlee Pearson Urobilinogen Qn (U) 0.2 {Tye'U}/dL Normal 0.2 - 1. 0 [facility] Comment on above: Performed By: #### U ACSIND ####[facility] Beqwfvkzaa16[address] [place] [address]Dr. Charlee Pearson XR CHEST 2 Von 03-27-2022 XR CHEST 2 V Normal [facility] CBC W MANUAL DIFFon 03-26-20 22 ATYPICAL LYMPH # Normal [facility] Comment on above: Performed By: #### C BCMAN ####[facility] Adumjudcni[address] [place] [address]Dr. Charlee Pearson ATYPICAL LYMPH % Normal [facility] Comment on above: Performed By: #### C BCMAN ####[facility] Fkhvdzkqaa1507 [place] [address]Dr. Charlee Pearson BAND # Normal 0.0-0.3 [facility] Comment on above: Performed By: #### C BCMAN ####[facility] Rvaigdysyt50[address] [place] [address]Dr. Charlee Pearson BAND % Normal 0-5 [facility] Comment on above: Performed By: #### C BCMAN ####[facility] Gekqhnvtcg5130 [place] [address]Dr. Chalree Pearson BASOM # 0.00 103/ul Normal 0.00-0.10 [facility] Comment on above: Performed By: #### C BCMAN ####[facility] Hkhjmqeffk4[address] [place] [address]Dr. Charlee Pearson BASOM % 0.0 % Critically low 0.2-2.0 [facility] Comment on above: Performed By: #### C BCMAN ####[facility] Exnvcgvyme43[address] [place] [address]Dr. Charlee Pearson BLAST # Normal [facility] Comment on above: Performed By: #### C BCMAN ####[facility] Hzrukrtujz7019 [place] [address]Dr. Charlee Pearson BLAST % Normal [facility] Comment on above: Performed By: #### C KERRIE ####[facility] Pmmrbetyeu6282 [place], [place] [address]Ev. Charlee Pearson CORRECTED WBC Normal 4.0-11.0 [facility] Comment on above: Performed By: #### C KERRIE ####[facility] Cexntazowy6487 [place], [place] [address]Xm. Charlee Pearson EOS # 0.00 103/ul Normal 0.00-0.70 [facility] Comment on above: Performed By: #### C KERRIE ####[facility] Uegcpydqen6501 [place] [id number]. Charlee Pearson EOS% 0.0 % Critically low 0.9-7.0 [facility] Comment on above: Performed By: #### C KERRIE ####[facility] Lksvyvoxsq1342 [place] [address]Dr. Charlee Pearson HCT 36.8 % Normal 36.0-48.0 [facility] Comment on above: Performed By: #### C KERRIE ####[facility] Epuwrmuxgl5190 [place] [address]Dr. Charlee Pearson HGB 12.5 g/dl Normal 12.0-16.0 [facility] Comment on above: Performed By: #### C KERRIE ####[facility] Tcvkhjyncz9660 [place] [address]Dr. Charlee Pearson LYMPHM # 0.74 103/ul Critically low 1.20-3.80 [facility] Comment on above: Performed By: #### C KERRIE ####[facility] Rsotleugyi1909 [place] [address]Dr. Charlee Pearson LYMPHM% 5.0 % Critically low 20.5-60.0 [facility] Comment on above: Performed By: #### C KERRIE ####[facility] Xtzgyvqyqw7443 [place] [address]Dr. Charlee Pearson MCH 31.2 pg Normal 26.7-34.0 [facility] Comment on above: Performed By: #### C KERRIE ####[facility] Cnfkmwwdsw7022 [place], [place] [address]Lx. Charlee Pearson MCHC 34.0 g/dl Normal 29.9-35.2 [facility] Comment on above: Performed By: #### C KERRIE ####[facility] Pbjwaqbife6618 [place], [place] [address]Lf. Charlee Pearson MCV 91.8 fL Normal 81.0-99.0 [facility] Comment on above: Performed By: #### C KERRIE ####[facility] Dzilhtlxki5[address] [place] [id number]. Charlee Pearson METAMYELOCYTE # Normal [facility] Comment on above: Performed By: #### C KERRIE ####[facility] Ukgkainegq1381 [place] [phone]. Charlee Pearson METAMYELOCYTE % Normal [facility] Comment on above: Performed By: #### C KERRIE ####[facility] Bwsxdpllal7596 [place] [address]Dr. Charlee Pearson MONOM# 0.74 103/ul Normal 0.30-0.80 [facility] Comment on above: Performed By: #### C KERRIE ####[facility] Mdsovdyptx0156 [place] [address]Dr. Charlee Pearson MONOM% 5.0 % Normal 1.7-12.0 [facility] Comment on above: Performed By: #### C KERRIE ####[facility] Bzmpxrqwzv8129 [place] [address]Dr. Charlee Pearson MPV 9.1 fL Critically low 9.5-13.5 [facility] Comment on above: Performed By: #### C KERRIE ####[facility] Fbmyotyoey1279 [place] [address]Dr. Charlee Pearson MYELOCYTE # Normal [facility] Comment on above: Performed By: #### C KERRIE ####[facility] Pofocmbfht5383 [place] [address]Dr. Charlee Pearson MYELOCYTE % Normal [facility] Comment on above: Performed By: #### C KERRIE ####[facility] Taayrfwlnd9225 [place], [place] [address]Fl. Charlee Pearson NRBC Normal [facility] Comment on above: Performed By: #### Jenny SY ####[facility] Cmstqvvjrj6113 [place] [address]Dr. Charlee Pearson PLT 463 103/ul Critically high 150-450 [facility] Comment on above: Performed By: #### Jenny SY ####[facility] Jstkbvjcsq0233 [place] [address]Dr. Charlee Pearson RBC 4.01 106/ul Critically low 4.20-5.40 [facility] Comment on above: Performed By: #### Jenny SY ####[facility] Xlpcqvcbcw5740 [place] [address]Dr. Charlee Pearson RDW 13.1 % Normal 11.0-15.0 [facility] Comment on above: Performed By: #### Jenny SY ####[facility] Moonbagizs9233 [place] [address]Dr. Charlee Pearson SEG # 13.41 103/ul Critically high 1.40-6.50 [facility] Comment on above: Performed By: #### Jenny SY ####[facility] Scwnhmfjae8140 [place] [address]Dr. Charlee Pearson SEG % 90.0 % Critically high 43.0-75.0 [facility] Comment on above: Performed By: #### Jenny SY ####[facility] Uiwjctrone1654 [place] [phone]. Charlee Pearson TOXIC GRANULATION 2+ Normal [facility] Comment on above: Performed By: #### Jenny SY ####[facility] Ekxvswehyj1181 [place] [address]Dr. Charlee Pearson WBC 14.9 103/ul Critically high 4.0-11.0 [facility] Comment on above: Performed By: #### Jenny SY ####[facility] Mhyrcpnamn5118 [place] [id number] Pearson PROF 14(COMP METB)on 022 Albumin [Mass/Vol] 2.4 g/dL Critically low 3.4-5.0 [facility] Comment on above: Performed By: #### C MP ####[facility] Mbnjhbnfeb8189 [place] [address]Dr. Charlee Michel Albumin/Globulin [Mass ratio] 0.7 {ratio} Normal [facility] Comment on above: Performed By: #### C MP ####[facility] Dwknyxxmog1406 [place] [address]Dr. Charlee Michel ALP [Catalytic activity/Vol] 74 U/L Normal 46-116 [facility] Comment on above: Performed By: #### C MP ####[facility] Akligpqxpy2109 [place] [address]Dr. Charlee Pearson ALT [Catalytic activity/Vol] 108 U/L Critically high 14-59 [facility] Comment on above: Performed By: #### C MP ####[facility] Jhiqrymgrv8748 [place] [address]Dr. Charlee Pearson Anion gap [Moles/Vol] 8.8 mmol/L Normal [facility] Comment on above: Performed By: #### C MP ####[facility] Btuqrlehuf4[address] [place], [place] [address]Dr. Charlee Michel AST [Catalytic activity/Vol] 26 U/L Normal 15-37 [facility] Comment on above: Performed By: #### C MP ####[facility] Zlnouckulm24[address] [place], [place] [address]Dr. Charlee Pearson Bilirubin [Mass/Vol] 0.3 mg/dL Normal 0.2-1.0 [facility] Comment on above: Performed By: #### C MP ####[facility] Zcznzrepxq4296 [place] [address]Dr. Charlee Pearson Calcium [Mass/Vol] 8.7 mg/dL Normal 8.5-10.1 [facility] Comment on above: Performed By: #### C MP ####[facility] Xafunbygsp2167 [place] [address]Dr. Charlee Pearson Chloride [Moles/Vol] 97 mmol/L Critically low 98-107 [facility] Comment on above: Performed By: #### C MP ####[facility] Ibdkivyvrx2117 [place] [address]Dr. Charlee Pearson CO2 [Moles/Vol] 32.5 mmol/L Critically high 21.0-32.0 [facility] Comment on above: Performed By: #### C MP ####[facility] Bjidouzlqy4227 [place] [address]Dr. Charlee Pearson Creatinine [Mass/Vol] 0.55 mg/dL Normal 0.55-1.02 [facility] Comment on above: Performed By: #### C MP ####[facility] Iuhgyyyfrz5344 [place] [address]Dr. Charlee Pearson EGFR-AF BRAZILIAN >60 Normal >=60 [facility] Comment on above: Performed By: #### C MP ####[facility] Ozxsqqghhx8068 [place] [address]Dr. Charlee Pearson EGFR-NON AF BRAZILIAN >60 Normal >=60 [facility] Comment on above: Performed By: #### C MP ####[facility] Gxyxucltzt4618 [place] [address]Dr. Charlee Pearson Globulin (S) [Mass/Vol] 3.4 g/dL Normal [facility] Comment on above: Performed By: #### C MP ####[facility] Qoonqmbdld9435 [place] [address]Dr. Charlee Pearson Glucose [Mass/Vol] 161 mg/dL Critically high 74-106 [facility] Comment on above: Performed By: #### C MP ####[facility] Deyxrgfxmn5845 [place] [address]Dr. Charlee Pearson Potassium [Moles/Vol] 3.3 mmol/L Critically low 3.5-5.1 [facility] Comment on above: Performed By: #### C MP ####[facility] Ehgicyewyd4272 [place] [address]Dr. Charlee Pearson Protein [Mass/Vol] 5.8 g/dL Critically low 6.4-8.2 [facility] Comment on above: Performed By: #### C MP ####[facility] Yebscnxyjg0049 [place] [address]Dr. Charlee Pearson Sodium [Moles/Vol] 135 mmol/L Critically low 136-145 [facility] Comment on above: Performed By: #### C MP ####[facility] Ycpojarquq3564 [place] [address]Dr. Charlee Pearson Urea nitrogen [Mass/Vol] 15.0 mg/dL Normal 7.0-18.0 [facility] Comment on above: Performed By: #### C MP ####[facility] Cdigxcxkar0980 [place] [address]Dr. Charlee Pearson Urea nitrogen/Creatinine [Mass ratio] 27.3 mg/mg Normal [facility] Comment on above: Performed By: #### C MP ####[facility] Tjqoucybyz7[address] [place], [place] [address]Dr. Charlee Pearson CBC W MANUAL DIFFon 03-25-20 22 ATYPICAL LYMPH # Normal [facility] Comment on above: Performed By: #### C BCMAN ####[facility] Plvpecjgkt[address] [place], [place] [address]Dr. Charlee Pearson ATYPICAL LYMPH % Normal [facility] Comment on above: Performed By: #### C BCMAN ####[facility] Iklepznkbs575[address] [place], [place] [address]Dr. Charlee Pearson BAND # Normal 0.0-0.3 [facility] Comment on above: Performed By: #### C BCMAN ####[facility] Opasopxxvg4850 [place] [address]Dr. Claudettelan Pearson BAND % Normal 0-5 [facility] Comment on above: Performed By: #### C BCMAN ####[facility] Qerozamqpg9967[address] [place], [place] [address]Dr. Charlee Pearson BASOM # 0.00 103/ul Normal 0.00-0.10 [facility] Comment on above: Performed By: #### C BCMAN ####[facility] Glhtmgosxt12[address] [place], [place] [address]Dr. Charlee Pearson BASOM % 0.0 % Critically low 0.2-2.0 [facility] Comment on above: Performed By: #### C BCJARON ####[facility] Bfhggfsflr4693 [place] [address]Dr. Charlee Pearson BLAST # Normal [facility] Comment on above: Performed By: #### C BCJARON ####[facility] Pboqbreydf7604 [place] [address]Dr. Charlee Pearson BLAST % Normal [facility] Comment on above: Performed By: #### C BCJARON ####[facility] Vbktgqejyt9544[address] [place], [place] [address]Dr. Charlee Pearson CORRECTED WBC Normal 4.0-11.0 [facility] Comment on above: Performed By: #### C KERRIE ####[facility] Gbdrsptgmk3267[address] [place], [place] [address]Dr. Charlee Pearson EOS # 0.00 103/ul Normal 0.00-0.70 [facility] Comment on above: Performed By: #### C KERRIE ####[facility] Qtnfxqoejs34[address] [place], [place] [address]Dr. Charlee Pearson EOS% 0.0 % Critically low 0.9-7.0 [facility] Comment on above: Performed By: #### C KERRIE ####[facility] Mkvyfsdwtr6969[address] [place], [place] [address]Dr. Charlee Pearson HCT 39.7 % Normal 36.0-48.0 [facility] Comment on above: Performed By: #### C KERRIE ####[facility] Xaafyjwzjc537[address] [place], [place] [address]Dr. Charlee Pearson HGB 13.5 g/dl Normal 12.0-16.0 [facility] Comment on above: Performed By: #### C KERRIE ####[facility] Bcrreqgvop9417[address] [place], [place] [address]Dr. Charlee Pearson LYMPHM # 1.22 103/ul Normal 1.20-3.80 [facility] Comment on above: Performed By: #### C KERRIE ####[facility] Tdbhnqcbxj7838 [place] [address]Dr. Charlee Pearson LYMPHM% 8.0 % Critically low 20.5-60.0 [facility] Comment on above: Performed By: #### C KERRIE ####[facility] Nlrtofmcsg7120 [place] [address]Dr. Charlee Pearson MCH 31.2 pg Normal 26.7-34.0 [facility] Comment on above: Performed By: #### C KERRIE ####[facility] Jzghohgvgh5014 [place] [address]Dr. Charlee Pearson MCHC 34.0 g/dl Normal 29.9-35.2 [facility] Comment on above: Performed By: #### C KERRIE ####[facility] Xjmysjxapz0138[address] [place], [place] [address]Dr. Charlee Pearson MCV 91.7 fL Normal 81.0-99.0 [facility] Comment on above: Performed By: #### C KERRIE ####[facility] Pqpbmuinit6[address] [place], [place] [address]Dr. Charlee Pearson METAMYELOCYTE # Normal [facility] Comment on above: Performed By: #### C KERRIE ####[facility] Mjgcylrgyx0364[address] [place], [place] [address]Dr. Charlee Pearson METAMYELOCYTE % Normal [facility] Comment on above: Performed By: #### C KERRIE ####[facility] Gxkvkzrwkd6567 [place] [address]Dr. Charlee Pearson MONOM# 1.06 103/ul Critically high 0.30-0.80 [facility] Comment on above: Performed By: #### C KERRIE ####[facility] Qzcgxhxxut8447 [place] [address]Dr. Charlee Pearson MONOM% 7.0 % Normal 1.7-12.0 [facility] Comment on above: Performed By: #### C KERRIE ####[facility] Cglbdapmkq8442 [place] [address]Dr. Charlee Pearson MPV 10.3 fL Normal 9.5-13.5 [facility] Comment on above: Performed By: #### C BCJARON ####[facility] Rprflzfele6480 [place], [place] [address]Ee. Charlee Pearson MYELOCYTE # Normal [facility] Comment on above: Performed By: #### C BCMAN ####[facility] Yiovfboizo4458 [place], [place] [address]Is. Charlee Pearson MYELOCYTE % Normal [facility] Comment on above: Performed By: #### C BCJARON ####[facility] Kqcsbxdpue5184 [place], [place] [address]Je. Charlee Pearson NRBC Normal [facility] Comment on above: Performed By: #### C KERRIE ####[facility] Jlmgnmnugw5450 [place] [address]Dr. Cahrlee Pearson PLT 445 103/ul Normal 150-450 [facility] Comment on above: Performed By: #### C KERRIE ####[facility] Kpuyblgvyx7995 [place] [address]Dr. Charlee Pearson RBC 4.33 106/ul Normal 4.20-5.40 [facility] Comment on above: Performed By: #### C KERRIE ####[facility] Murhpzcrdc2583 [place] [address]Dr. Charlee Pearson RDW 13.1 % Normal 11.0-15.0 [facility] Comment on above: Performed By: #### C KERRIE ####[facility] Qpnxqvhqoz9189 [place] [address]Dr. Charlee Pearson SEG # 12.92 103/ul Critically high 1.40-6.50 [facility] Comment on above: Performed By: #### C BCJARON ####[facility] Njnyceiryd9129 [place], [place] [address]Je. Charlee Pearson SEG % 85.0 % Critically high 43.0-75.0 [facility] Comment on above: Performed By: #### C BCJARON ####[facility] Uhkgsjjuhi2752 [place] [address]Dr. Charlee Pearson WBC 15.2 103/ul Critically high 4.0-11.0 [facility] Comment on above: Performed By: #### C BCMAN ####[facility] Oaxfxfixjk[address] [place], [place] [address]Dr. Charlee Pearson FREE T3on 03-25-2022 FREE T3 0.74 pg/mlL Critically low 2.18-3.98 [facility] Comment on above: Performed By: #### T SH, FT3 ####[facility] Rmylzrpnaj4617[address] [place], [place] [address]Dr. Charlee Pearson FREE T4on 03-25-2022 Free T4 [Mass/Vol] 1.27 ng/dL Normal 0.76-1.46 [facility] Comment on above: Performed By: #### F T4 ####[facility] Eqetayfhfz5268[address] [place], [place] [address]Dr. Charlee Pearson LIVER PROFILEon 03-25-2022 Albumin [Mass/Vol] 2.8 g/dL Critically low 3.4-5.0 [facility] Comment on above: Performed By: #### L IVER ####[facility] Lvyaxoixwa9749[address] [place], [place] [address]Dr. Charlee Pearson Albumin/Globulin [Mass ratio] 0.7 {ratio} Normal [facility] Comment on above: Performed By: #### L IVER ####[facility] Wgquiiviww6779[address] [place], [place] [address]Dr. Charlee Pearson ALP [Catalytic activity/Vol] 89 U/L Normal 46-116 [facility] Comment on above: Performed By: #### L IVER ####[facility] Dczceskans5046[address] [place], [place] [address]Dr. Charlee Michel ALT [Catalytic activity/Vol] 158 U/L Critically high 14-59 [facility] Comment on above: Performed By: #### L IVER ####[facility] Czevvxuaxj4395[address] [place], [place] [address]Dr. Claudetteclaudette Pearson AST [Catalytic activity/Vol] 55 U/L Critically high 15-37 [facility] Comment on above: Performed By: #### L IVER ####[facility] Pkpvddevaz4850[address] [place], [place] [address]Dr. Charlee Pearson BILI, CONJUGATED 0.1 mg/dL Normal 0.0-0.2 [facility] Comment on above: Performed By: #### L IVER ####[facility] Zwjjioamaz0438 [place] [address]Dr. Charlee Pearson Bilirubin [Mass/Vol] 0.3 mg/dL Normal 0.2-1.0 [facility] Comment on above: Performed By: #### L IVER ####[facility] Fiecedpqow4096[address] [place], [place] [address]Dr. Charlee Pearson Globulin (S) [Mass/Vol] 4.0 g/dL Normal T [facility] [place] [facility] Comment on above: Performed By: #### L IVER ####[facility] Nysdfjgyqw0380[address] [place], [place] [address]Dr. Charlee Pearson Protein [Mass/Vol] 6.8 g/dL Normal 6.4-8.2 [facility] Comment on above: Performed By: #### L IVER ####[facility] Qjjgsgavzx4212[address] [place], [place] [address]Dr. Charlee Pearson LOWER RESPIRATORY CULTUREon 03-25-2022 Lower Respiratory Culture Final report Normal [facility] Comment on above: Performed By: #### C XLORES ####[facility] Fnfrjcxiec039[address] [place], [place] [address]Dr. Charlee Pearson Result 1 Comment Normal [facility] Comment on above: Result Comment: No g geovani in 36 - 48 hours. Performed By: #### C XLORES ####[facility] Opncxppwgw6618[address] [place], [place] [address]Dr. Charlee Pearson Result Comment: Rout ine respiratory aneesh PROF CHEM 8 (BAS METB)on Anion gap [Moles/Vol] 10.9 mmol/L Normal [facility] Comment on above: Performed By: #### B MP ####[facility] Tyyxdxafoo107[address] [place], [place] [address]Dr. Charlee Pearson Calcium [Mass/Vol] 9.5 mg/dL Normal 8.5-10.1 [facility] Comment on above: Performed By: #### B MP ####[facility] Jollhwqsrt1225 [place] [address]Dr. Charlee Pearson Chloride [Moles/Vol] 97 mmol/L Critically low 98-107 [facility] Comment on above: Performed By: #### B MP ####[facility] Mxdkzbfrnt5946 [place] [address]Dr. Charlee Pearson CO2 [Moles/Vol] 32.6 mmol/L Critically high 21.0-32.0 [facility] Comment on above: Performed By: #### B MP ####[facility] Guootdmwrx6350 [place] [address]Dr. Charlee Pearson Creatinine [Mass/Vol] 0.56 mg/dL Normal 0.55-1.02 [facility] Comment on above: Performed By: #### B MP ####[facility] Unzffucdvq5105[address] [place], [place] [address]Dr. Charlee Michel EGFR-AF BRAZILIAN >60 Normal >=60 [facility] Comment on above: Performed By: #### B MP ####[facility] Uwxgvfkjau966[address] [place], [place] [address]Dr. Charlee Pearson EGFR-NON AF BRAZILIAN >60 Normal >=60 [facility] Comment on above: Performed By: #### B MP ####[facility] Qbpawujixd8782[address] [place], [place] [address]Dr. Charlee Pearson Glucose [Mass/Vol] 154 mg/dL Critically high 74-106 [facility] Comment on above: Performed By: #### B MP ####[facility] Zmnaapptav2603 [place] [address]Dr. Charlee Pearson Potassium [Moles/Vol] 3.5 mmol/L Normal 3.5-5.1 [facility] Comment on above: Performed By: #### B MP ####[facility] Hjqusthnsr0817 [place] [address]Dr. Charlee Pearson Sodium [Moles/Vol] 137 mmol/L Normal 136-145 [facility] Comment on above: Performed By: #### B MP ####[facility] Agdswtrbdk8105 [place] [address]Dr. Charlee Michel Urea nitrogen [Mass/Vol] 13.0 mg/dL Normal 7.0-18.0 [facility] Comment on above: Performed By: #### B MP ####[facility] Nspomnlqvy5206 [place] [address]Dr. Claudetteclaudette Michel Urea nitrogen/Creatinine [Mass ratio] 23.2 mg/mg Normal [facility] Comment on above: Performed By: #### B MP ####[facility] Aspdepvsjp1722[address] [place], [place] [address]Dr. Charlee Pearson TSHon 03-25-2022 TSH 0.026 uIU/mL Critically low 0.358-3.740 [facility] Comment on above: Performed By: #### T SH, FT3 ####[facility] Vcpuhkxxfa779[address] [place], [place] [address]Dr. Charlee Pearson VITAMIN D 25 OHon 03-25-2022 VIT D 25-OH 62.5 ng/mL Normal [facility] Comment on above: Performed By: #### V ITAD ####[facility] Tsrtakybtt3737[address] [place], [place] [address]Dr. Charlee Pearson VIT D RANGES SEE BELOW Normal [facility] Comment on above: Result Comment: <20 ng/mL Vit D deficient 20 - <30 ng/mL Vit D insufficient 30 - 100 ng/mL Vit D sufficient >100 ng/mL Potential Toxicity Performed By: #### V ITAD ####[facility] Iodgzrdtat9784[address] [place], [place] [address]Dr. Charlee Pearson XR CHEST 2 Von 03-25-2022 XR CHEST 2 V Normal [facility] CBC W MANUAL DIFFon 03-24-20 22 ATYPICAL LYMPH # Normal [facility] Comment on above: Performed By: #### C BCMAN ####[facility] Yrndhcosxd9064 [place] [address]Dr. Charlee Pearson ATYPICAL LYMPH % Normal [facility] Comment on above: Performed By: #### C BCJARON ####[facility] Ksxicjolde7258[address] [place], [place] [address]Dr. Yilan Pearson BAND # 0.5 103/ul Critically high 0.0-0.3 [facility] Comment on above: Performed By: #### C BCMAN ####[facility] Hqyclxhjog8383 [place] [address]Dr. Yilan Pearson BAND % 4 % Normal 0-5 [facility] Comment on above: Performed By: #### C BCMAN ####[facility] St[address]spamery[address] [place] [address]Dr. Yiclaudette Pearson BASOM # 0.00 103/ul Normal 0.00-0.10 [facility] Comment on above: Performed By: #### C BCMAN ####[facility] Vbqdlscyha[address] [place], [place] [address]Dr. Charlee Pearson BASOM % 0.0 % Critically low 0.2-2.0 [facility] Comment on above: Performed By: #### C BCJARON ####[facility] Tyfabfqqdu66[address] [place], [place] [address]Dr. Yiclaudette Pearson BLAST # Normal [facility] Comment on above: Performed By: #### C BCJARON ####[facility] Tjlvwitzbw[address] [place], [place] [address]Dr. Yilan Pearson BLAST % Normal [facility] Comment on above: Performed By: #### C BCMAN ####[facility] Atcpkcbqgh33[address] [place], [place] [address]Dr. Charlee Pearson CORRECTED WBC Normal 4.0-11.0 [facility] Comment on above: Performed By: #### C BCMAN ####[facility] Nyfkhiynen38[address] [place], [place] [address]Dr. Yiclaudette Pearson EOS # 0.00 103/ul Normal 0.00-0.70 [facility] Comment on above: Performed By: #### C BCMAN ####[facility] Vkriaigjii8942[address] [place], [place] [address]Dr. Yiclaudette Pearson EOS% 0.0 % Critically low 0.9-7.0 [facility] Comment on above: Performed By: #### C BCMAN ####[facility] Gwpsruykrj3458 [place], [place] [address]Yb. Charlee Pearson HCT 34.3 % Critically low 36.0-48.0 [facility] Comment on above: Performed By: #### C KERRIE ####[facility] Uqxgwqmpue16[address] [place] [id number]. Charlee Pearson HGB 11.4 g/dl Critically low 12.0-16.0 [facility] Comment on above: Performed By: #### C KERRIE ####[facility] Fjdtswjdlp76[address] [place] [id number]. Charlee Pearson LYMPHM # 0.76 103/ul Critically low 1.20-3.80 [facility] Comment on above: Performed By: #### C KERRIE ####[facility] Hyetlmvccx24[address] [place] [address]Dr. Charlee Pearson LYMPHM% 6.0 % Critically low 20.5-60.0 [facility] Comment on above: Performed By: #### C KERRIE ####[facility] Gjrvphqcke6346 [place] [address]Dr. Charlee Pearson MCH 30.8 pg Normal 26.7-34.0 [facility] Comment on above: Performed By: #### C KERRIE ####[facility] Aqcnbfraxd0[address] [place] [id number]. Charlee Pearson MCHC 33.2 g/dl Normal 29.9-35.2 [facility] Comment on above: Performed By: #### C KERRIE ####[facility] Cayfyayxvj33[address] [place] [address]Dr. Charlee Pearson MCV 92.7 fL Normal 81.0-99.0 [facility] Comment on above: Performed By: #### C KERRIE ####[facility] Yuewphmays[address] [place] [phone]. Charlee Pearson METAMYELOCYTE # Normal [facility] Comment on above: Performed By: #### C KERRIE ####[facility] Kesyredazi55[address] [place] [phone]. Charlee Pearson METAMYELOCYTE % Normal [facility] Comment on above: Performed By: #### C KERRIE ####[facility] Pxjjxeupid0052 [place], [place] [address]Gl. Charlee Pearson MONOM# 0.64 103/ul Normal 0.30-0.80 [facility] Comment on above: Performed By: #### C KERRIE ####[facility] Fhbslgwihx5659 [place], [place] [address]Mb. Charlee Pearson MONOM% 5.0 % Normal 1.7-12.0 [facility] Comment on above: Performed By: #### C KERRIE ####[facility] Khtqfsbcgw9202 [place], [place] [address]Sl. Charlee Pearson MPV 9.4 fL Critically low 9.5-13.5 [facility] Comment on above: Performed By: #### C KERRIE ####[facility] Wlemtzkuac[address] [place] [phone]. Charlee Pearson MYELOCYTE # Normal [facility] Comment on above: Performed By: #### C KERRIE ####[facility] Rtbbxzlahr0328 [place], [place] [address]Cr. Charlee Pearson MYELOCYTE % Normal [facility] Comment on above: Performed By: #### C KERRIE ####[facility] Srqhynrbpk1951 [place], [place] [address]Wx. Charlee Pearson NRBC Normal [facility] Comment on above: Performed By: #### C KERRIE ####[facility] Pexaqzeoyg13[address] [place] [phone]. Charlee Pearson PLT 376 103/ul Normal 150-450 [facility] Comment on above: Performed By: #### C KERRIE ####[facility] Akrlynutta64[address] [place] [phone]. Charlee Pearson RBC 3.70 106/ul Critically low 4.20-5.40 [facility] Comment on above: Performed By: #### C KERRIE ####[facility] Qpuyqsfasd5922 [place] [phone]. Charlee Michel RDW 13.2 % Normal 11.0-15.0 [facility] Comment on above: Performed By: #### C BCMAN ####[facility] Edltjyvxaq7414 [place] [phone]. Charlee Pearson SEG # 10.79 103/ul Critically high 1.40-6.50 [facility] Comment on above: Performed By: #### C BCMAN ####[facility] Lbwbrplxwe2306 [place] [phone]. Charlee Pearson SEG % 85.0 % Critically high 43.0-75.0 [facility] Comment on above: Performed By: #### C BCMAN ####[facility] Fbwqnuwjpa1498 [place] [phone]. Charlee Pearson WBC 12.7 103/ul Critically high 4.0-11.0 [facility] Comment on above: Performed By: #### C KERRIE ####[facility] Truwxkchvm1505 [place] [address]DrOttoniel Pearson PROF CHEM 8 (BAS METB)on Anion gap [Moles/Vol] 7.5 mmol/L Normal [facility] Comment on above: Performed By: #### B MP ####[facility] Upnzxjzwbf1702[address] [place], [place] [address]DrOttoniel Pearson Calcium [Mass/Vol] 9.0 mg/dL Normal 8.5-10.1 [facility] Comment on above: Performed By: #### B MP ####[facility] Noydpvbbvb2976 [place] [address]Dr. Charlee Pearson Chloride [Moles/Vol] 100 mmol/L Normal 98-107 [facility] Comment on above: Performed By: #### B MP ####[facility] Apvulohmmr7563 [place] [address]DrOttoniel Pearson CO2 [Moles/Vol] 32.3 mmol/L Critically high 21.0-32.0 [facility] Comment on above: Performed By: #### B MP ####[facility] Mksfokmmdq5987[address] [place], [place] [address]DrOttoniel Pearson Creatinine [Mass/Vol] 0.50 mg/dL Critically low 0.55-1.02 [facility] Comment on above: Performed By: #### B MP ####[facility] Sohfcjmafr024[address] [place] [address]Dr. Claudetteclaudette Michel EGFR-AF BRAZILIAN >60 Normal >=60 [facility] Comment on above: Performed By: #### B MP ####[facility] Lzqefccyrj8284 [place] [id number]. Charlee Pearson EGFR-NON AF BRAZILIAN >60 Normal >=60 [facility] Comment on above: Performed By: #### B MP ####[facility] Tbvpihpboq8392 [place] [address]Dr. Charlee Pearson Glucose [Mass/Vol] 147 mg/dL Critically high 74-106 T [facility] [place] [facility] Comment on above: Performed By: #### B MP ####[facility] Zqadkiditq7620 [place] [address]Dr. Charlee Pearson Potassium [Moles/Vol] 3.8 mmol/L Normal 3.5-5.1 [facility] Comment on above: Performed By: #### B MP ####[facility] Angfavptsn0364[address] [place], [place] [address]Dr. Charlee Pearson Sodium [Moles/Vol] 136 mmol/L Normal 136-145 [facility] Comment on above: Performed By: #### B MP ####[facility] Pbfymhjyae0497 [place] [address]Dr. Charlee Pearson Urea nitrogen [Mass/Vol] 13.0 mg/dL Normal 7.0-18.0 [facility] Comment on above: Performed By: #### B MP ####[facility] Cnvyvexwcp0953 [place] [address]Dr. Charlee Pearson Urea nitrogen/Creatinine [Mass ratio] 26.0 mg/mg Normal [facility] Comment on above: Performed By: #### B MP ####[facility] Gkwjhpdfqe0233 [place] [address]Dr. Charlee Pearson CBC AUTO DIFFon 03-23-2022 BASO # 0.1 103/ul Normal 0.0-0.1 [facility] Comment on above: Performed By: #### C BC ####[facility] Crcbxqcvqf8764 [place] [address]Dr. Charlee Michel Basophils/100 WBC (Bld) 0.3 % Normal 0.2-2.0 [facility] Comment on above: Performed By: #### C BC ####[facility] Pefcvzvyeg1958[address] [place], [place] [address]DrOttoniel Pearson EO # 0.0 103/ul Normal 0.0-0.7 [facility] Comment on above: Performed By: #### C BC ####[facility] Fwkzfeggli6805[address] [place], [place] [address]Dr. Charlee Pearson Eosinophils/100 WBC (Bld) 0.0 % Critically low 0.9-7.0 [facility] Comment on above: Performed By: #### C BC ####[facility] Aoidhheuad776430 [address] [place], [place] [address]Dr. Charlee Pearson Erythrocyte distribution width (RBC) [Ratio] 13.2 % Normal 11.0-15.0 [facility] Comment on above: Performed By: #### C BC ####[facility] Ldhocbafzc3978[address] [place], [place] [address]Dr. Charlee Michel Hematocrit (Bld) [Volume fraction] 33.6 % Critically low 36.0-48.0 [facility] Comment on above: Performed By: #### C BC ####[facility] Cjiparsspi6499[address] [place], [place] [address]Dr. Charlee Michel Hemoglobin (Bld) [Mass/Vol] 11.6 g/dL Critically low 12.0-16.0 [facility] Comment on above: Performed By: #### C BC ####[facility] Hwcqliaptv1203[address] [place], [place] [address]DrOttoniel Pearson IG # 0.79 10e3/ul Critically high 0.00-0.03 [facility] Comment on above: Performed By: #### C BC ####[facility] Aktgjakwco6407[address] [place], [place] [address]DrOttoniel Pearson IG % 3.4 % Critically high 0.0-0.5 [facility] Comment on above: Performed By: #### C BC ####[facility] Zzcufslvpu3183 [place] [address]DrOttoniel Pearson LYMPH # 0.7 103/ul Critically low 1.2-3.8 [facility] Comment on above: Performed By: #### C BC ####[facility] Zmdxcrbiyn8786 [place] [address]DrOttoniel Pearson Lymphocytes/100 WBC (Bld) 3.0 % Critically low 20.5-60.0 [facility] Comment on above: Performed By: #### C BC ####[facility] Jitouygtvc8009[address] [place], [place] [address]DrOttoniel Pearson MANUAL DIFF REQ NO Normal [facility] Comment on above: Performed By: #### C BC ####[facility] Iavpaycspq68[address] [place], [place] [address]DrOttoniel Pearson MCH (RBC) [Entitic mass] 31.4 pg Normal 26.7-34.0 [facility] Comment on above: Performed By: #### C BC ####[facility] Mpgoaovmzf216230 [address] [place], [place] [address]DrOttoniel Pearson MCHC (RBC) [Mass/Vol] 34.5 g/dL Normal 29.9-35.2 [facility] Comment on above: Performed By: #### C BC ####[facility] Sigjghudls99[address] [place], [place] [address]DrOttoniel Pearson MCV (RBC) [Entitic vol] 91.1 fL Normal 81.0-99.0 [facility] Comment on above: Performed By: #### C BC ####[facility] Ruflqqylmr3672[address] [place], [place] [address]DrOttoniel Pearson MONO # 0.9 103/ul Critically high 0.3-0.8 [facility] Comment on above: Performed By: #### C BC ####[facility] Oigdycqfba4420[address] [place], [place] [address]DrOttoniel Pearson Monocytes/100 WBC (Bld) 4.0 % Normal 1.7-12.0 [facility] Comment on above: Performed By: #### C BC ####[facility] Sbznokhjnq0339 [place] [address]Dr. Charlee Pearson NEUT # 20.9 103/ul Critically high 1.4-6.5 [facility] Comment on above: Performed By: #### C BC ####[facility] Bjanuwuled7060 [place] [address]Dr. Charlee Pearson Neutrophils/100 WBC (Bld) 89.3 % Critically high 43.0-75.0 [facility] Comment on above: Performed By: #### C BC ####[facility] Ihjvdnqawn9910[address] [place], [place] [address]Dr. Charlee Pearson Platelet mean volume (Bld) [Entitic vol] 9.5 fL Normal 9.5-13.5 [facility] Comment on above: Performed By: #### C BC ####[facility] Jbyaalnptr1276[address] [place], [place] [address]Dr. Charlee Pearson PLT 337 103/ul Normal 150-450 [facility] Comment on above: Performed By: #### C BC ####[facility] Nezyueabda7339[address] [place], [place] [address]Dr. Charlee Pearson RBC 3.69 106/ul Critically low 4.20-5.40 [facility] Comment on above: Performed By: #### C BC ####[facility] Xepzyxvivf1342[address] [place], [place] [address]Dr. Charlee Pearson WBC 23.4 103/ul Critically high 4.0-11.0 [facility] Comment on above: Performed By: #### C BC ####[facility] Nuhhiomapr765[address] [place], [place] [address]Dr. Charlee Pearson ECHOCARDIO M/2D COMPLETEon 0 03-23-2022 ECHOCARDIO M/2D COMPLETE Normal [facility] MAGNESIUMon 03-23-2022 Magnesium [Mass/Vol] 1.9 mg/dL Normal 1.8-2.4 [facility] Comment on above: Performed By: #### M G ####[facility] Fitgsqsgjb4539 [place] [address]Dr. Charlee Pearson PROF CHEM 8 (BAS METB)on Anion gap [Moles/Vol] 11.1 mmol/L Normal [facility] Comment on above: Performed By: #### B MP ####[facility] Wmsoyighxu8969 [place] [address]Dr. Charlee Pearson Calcium [Mass/Vol] 8.9 mg/dL Normal 8.5-10.1 [facility] Comment on above: Performed By: #### B MP ####[facility] Myreggkqhm4829[address] [place], [place] [address]Dr. Charlee Pearson Chloride [Moles/Vol] 97 mmol/L Critically low 98-107 [facility] Comment on above: Performed By: #### B MP ####[facility] Ajupxhncxn662[address] [place], [place] [address]Dr. Charlee Pearson CO2 [Moles/Vol] 31.1 mmol/L Normal 21.0-32.0 [facility] Comment on above: Performed By: #### B MP ####[facility] Fotrvwbygl036[address] [place], [place] [address]Dr. Charlee Pearson Creatinine [Mass/Vol] 0.55 mg/dL Normal 0.55-1.02 [facility] Comment on above: Performed By: #### B MP ####[facility] Zfatqmttxq8225[address] [place], [place] [address]Dr. Charlee Pearson EGFR-AF BRAZILIAN >60 Normal >=60 [facility] Comment on above: Performed By: #### B MP ####[facility] Rbmamxotak45[address] [place], [place] [address]Dr. Charlee Pearson EGFR-NON AF BRAZILIAN >60 Normal >=60 [facility] Comment on above: Performed By: #### B MP ####[facility] Tdbthqnolk8207[address] [place], [place] [address]Dr. Charlee Pearson Glucose [Mass/Vol] 134 mg/dL Critically high 74-106 [facility] Comment on above: Performed By: #### B MP ####[facility] Taixdtppfx9402 [place] [address]Dr. Charlee Pearson Potassium [Moles/Vol] 3.2 mmol/L Critically low 3.5-5.1 [facility] Comment on above: Performed By: #### B MP ####[facility] Cqbwnbejek4392 [place] [address]Dr. Charlee Pearson Sodium [Moles/Vol] 136 mmol/L Normal 136-145 [facility] Comment on above: Performed By: #### B MP ####[facility] Yjxokmfrtz5589[address] [place], [place] [address]Dr. Claudetteclaudette Pearson Urea nitrogen [Mass/Vol] 10.0 mg/dL Normal 7.0-18.0 [facility] Comment on above: Performed By: #### B MP ####[facility] Nrqbwfvhdz945830 [address] [place], [place] [address]Dr. Charele Pearson Urea nitrogen/Creatinine [Mass ratio] 18.2 mg/mg Normal [facility] Comment on above: Performed By: #### B MP ####[facility] Skajemkahy699[address] [place], [place] [address]Dr. Claudetteclaudette Pearson Anion gap [Moles/Vol] 4.6 mmol/L Normal [facility] Comment on above: Performed By: #### B MP ####[facility] Bmjuueygfe0729[address] [place], [place] [address]Dr. Charlee Pearson Calcium [Mass/Vol] 8.9 mg/dL Normal 8.5-10.1 [facility] Comment on above: Performed By: #### B MP ####[facility] Dsasgzrfkr8594[address] [place], [place] [address]Dr. Claudetteclaudette Pearson Chloride [Moles/Vol] 99 mmol/L Normal 98-107 [facility] Comment on above: Performed By: #### B MP ####[facility] Yexjjwcqqq070030 [address] [place], [place] [address]Dr. Charlee Pearson CO2 [Moles/Vol] 33.2 mmol/L Critically high 21.0-32.0 [facility] Comment on above: Performed By: #### B MP ####[facility] Suyvnzdjtt9881 [place] [address]Dr. Charlee Pearson Creatinine [Mass/Vol] 0.46 mg/dL Critically low 0.55-1.02 [facility] Comment on above: Performed By: #### B MP ####[facility] Gurjnmyltc5890 [place] [id number]. Charlee Pearson EGFR-AF BRAZILIAN >60 Normal >=60 [facility] Comment on above: Performed By: #### B MP ####[facility] Wcrolzbifn048[address] [place], [place] [address]Dr. Charlee Pearson EGFR-NON AF BRAZILIAN >60 Normal >=60 [facility] Comment on above: Performed By: #### B MP ####[facility] Isjvtbycwi4558[address] [place], [place] [address]Dr. Charlee Pearson Glucose [Mass/Vol] 154 mg/dL Critically high 74-106 [facility] Comment on above: Performed By: #### B MP ####[facility] Wsnojojdlh785[address] [place], [place] [address]Dr. Charlee Pearson Potassium [Moles/Vol] 2.8 mmol/L Critically low 3.5-5.1 [facility] Comment on above: Result Comment: repe ated Performed By: #### B MP ####[facility] Yftshvlnqv36[address] [place], [place] [address]Dr. Charlee Pearson Sodium [Moles/Vol] 136 mmol/L Normal 136-145 [facility] Comment on above: Performed By: #### B MP ####[facility] Holrvdbzkn438[address] [place], [place] [address]Dr. Charlee Pearson Urea nitrogen [Mass/Vol] 10.0 mg/dL Normal 7.0-18.0 [facility] Comment on above: Performed By: #### B MP ####[facility] Ksadjtvndg1142[address] [place], [place] [address]Dr. Claudetteclaudette Pearson Urea nitrogen/Creatinine [Mass ratio] 21.7 mg/mg Normal [facility] Comment on above: Performed By: #### B MP ####[facility] Gabnjgnysx8162 [place] [address]Dr. Charlee Michel BLOOD GASES BTYon 03-22-2022 02 MODE BIPAP Normal [facility] Comment on above: Performed By: #### A BG ####[facility] Yogahqbxpk2260 [place] [address]Dr. Charlee Pearson ALLENS TEST Positive Normal [facility] Comment on above: Performed By: #### A BG ####[facility] Riqqbknysz1367 [place] [address]Dr. Charlee Pearson Base excess Calc (Bld) [Moles/Vol] 9.7 mmol/L Critically high -2.0-2.0 [facility] Comment on above: Performed By: #### A BG ####[facility] Ldtzsebphx026[address] [place], [place] [address]Dr. Charlee Pearson BIPAP PRESSURE 14/8 Normal [facility] Comment on above: Performed By: #### A BG ####[facility] Lhxtfmqowe727[address] [place], [place] [address]Dr. Charlee Pearson CO2 [Moles/Vol] 68.7 mmol/L Critically high 23.0-28.0 [facility] Comment on above: Performed By: #### A BG ####[facility] Ebihwvnrmw1101[address] [place], [place] [address]Dr. Charlee Pearson CPAP Normal [facility] Comment on above: Performed By: #### A BG ####[facility] Xbzlmhjffw037[address] [place], [place] [address]Dr. Charlee Pearson FIO2 50.00 % Normal [facility] Comment on above: Performed By: #### A BG ####[facility] Rrfaknplav8499[address] [place], [place] [address]Dr. Charlee Pearson HCO3 (Bld) [Moles/Vol] 32.1 mmol/L Critically high 22.0-26 .0 [facility] Comment on above: Performed By: #### A BG ####[facility] Iygklfmozd2876[address] [place], [place] [address]Dr. Charlee Pearson LPM Normal [facility] Comment on above: Performed By: #### A BG ####[facility] Hxjonioyox5719 [place] [address]Dr. Charlee Pearson MINUTE VOLUME Normal [facility] Comment on above: Performed By: #### A BG ####[facility] Fdwznvooyl0467 [place] [address]Dr. Charlee Pearson Oxygen (Bld) [Partial pressure] 71.8 mm[Hg] Critically low 80.0-100.0 [facility] Comment on above: Performed By: #### A BG ####[facility] Gixwmomebi526[address] [place], [place] [address]Dr. Charlee Pearson Oxygen saturation in Blood 95.3 % Normal 95.0-100.0 [facility] Comment on above: Performed By: #### A BG ####[facility] Vxzhmstayb5857[address] [place], [place] [address]Dr. Charlee Pearson PCO2 49.0 mmHg Critically high 35.0-45.0 [facility] Comment on above: Performed By: #### A BG ####[facility] Pibkfjybor9915[address] [place], [place] [address]Dr. Charlee Pearson PEEP [facility] Comment on above: Performed By: #### A BG ####[facility] Rmmqhsofzb04[address] [place], [place] [address]Dr. Charlee Pearson pH (Bld) 7.447 [pH] Normal 7.350-7.450 [facility] Comment on above: Performed By: #### A BG ####[facility] Nmegsadnkf2330[address] [place], [place] [address]Dr. Charlee Pearson PIP [facility] Comment on above: Performed By: #### A BG ####[facility] Nybefyuwir9195 [place] [address]Dr. Charlee Pearson PS [facility] Comment on above: Performed By: #### A BG ####[facility] Kkagvlygbj9891 [place] [address]Dr. Charlee Pearson PUNCTURE SITE RR Normal [facility] Comment on above: Performed By: #### A BG ####[facility] Dcphkgqwsl3051 [place] [address]Dr. Charlee Pearson RATE Normal [facility] Comment on above: Performed By: #### A BG ####[facility] Ygexzsbxty0011 [place] [address]Dr. Charlee Pearson VENT MODE Normal [facility] Comment on above: Performed By: #### A BG ####[facility] Vcomtbdpui9676 [place] [address]Dr. Charlee Pearson VT Normal [facility] Comment on above: Performed By: #### A BG ####[facility] Yydxcqiqzd536[address] [place], [place] [address]Dr. Charlee Pearson 02 MODE NASAL CANNULA Normal [facility] Comment on above: Performed By: #### A BG ####[facility] Qkehgwpzei569[address] [place], [place] [address]Dr. Charlee Pearson ALLENS TEST Positive [facility] Comment on above: Performed By: #### A BG ####[facility] Vswwzogtfc9529[address] [place], [place] [address]Dr. Charlee Pearson Base excess Calc (Bld) [Moles/Vol] 8.9 mmol/L Critically high -2.0-2.0 [facility] Comment on above: Performed By: #### A BG ####[facility] Mqhejjusev3635[address] [place], [place] [address]Dr. Charlee Pearson BIPAP PRESSURE Normal [facility] Comment on above: Performed By: #### A BG ####[facility] Xdawomlmnu0876[address] [place], [place] [address]Dr. Charlee Pearson CO2 [Moles/Vol] 65.3 mmol/L Critically high 23.0-28.0 [facility] Comment on above: Performed By: #### A BG ####[facility] Jewpxgltve9669[address] [place], [place] [address]Dr. Charlee Pearson CPAP [facility] Comment on above: Performed By: #### A BG ####[facility] Jihgxgorpg9814[address] [place], [place] [address]Dr. Charlee Pearson FIO2 Normal [facility] Comment on above: Performed By: #### A BG ####[facility] Eatqlutfxw0495 [place] [address]Dr. Charlee Pearson HCO3 (Bld) [Moles/Vol] 31.7 mmol/L Critically high 22.0-26 .0 [facility] Comment on above: Performed By: #### A BG ####[facility] Gvkbvtnlpk3310[address] [place], [place] [address]Dr. Charlee Pearson LPM 3 Normal [facility] Comment on above: Performed By: #### A BG ####[facility] Zrwsltvkqt973[address] [place], [place] [address]Dr. Charlee Pearson MINUTE VOLUME Normal [facility] Comment on above: Performed By: #### A BG ####[facility] Pqwtnirurx0820[address] [place], [place] [address]Dr. Charlee Pearson Oxygen (Bld) [Partial pressure] 51.2 mm[Hg] Critically low 80.0-100.0 [facility] Comment on above: Performed By: #### A BG ####[facility] [address] [place], [place] [address]Dr. Charlee Pearson Oxygen saturation in Blood 89.9 % Critically low 95.0-100.0 [facility] Comment on above: Performed By: #### A BG ####[facility] Yxwlebyeut94[address] [place], [place] [address]Dr. Charlee Pearson PCO2 42.5 mmHg Normal 35.0-45.0 [facility] Comment on above: Performed By: #### A BG ####[facility] Ncbresuxyj65[address] [place], [place] [address]Dr. Charlee Pearson PEEP Normal [facility] Comment on above: Performed By: #### A BG ####[facility] Leajawjcfn2033[address] [place], [place] [address]Dr. Charlee Pearson pH (Bld) 7.489 [pH] Critically high 7.350-7.450 [facility] Comment on above: Performed By: #### A BG ####[facility] Doikupvien37[address] [place], [place] [address]Dr. Charlee Pearson PIP Normal [facility] Comment on above: Performed By: #### A BG ####[facility] Gqzsonteyq7993 [place] [address]Dr. Charlee Pearson PS Normal [facility] Comment on above: Performed By: #### A BG ####[facility] Idcuvrltlc3354 [place] [address]Dr. Charlee Pearson PUNCTURE SITE LR Normal [facility] Comment on above: Performed By: #### A BG ####[facility] Oekronyqgd5829 [place] [address]Dr. Charlee Pearson RATE [facility] Comment on above: Performed By: #### A BG ####[facility] Wwyujbgeby9[address] [place], [place] [address]Dr. Charlee Pearson VENT MODE [facility] Comment on above: Performed By: #### A BG ####[facility] Vwnzffryam18[address] [place], [place] [address]Dr. Charlee Pearson [place] [facility] Comment on above: Performed By: #### A BG ####[facility] Kfkclfzxbd1890[address] [place], [place] [address]Dr. Charlee Pearson CBC W MANUAL DIFFon 03-22-20 22 ATYPICAL LYMPH # Normal [facility] Comment on above: Performed By: #### C NENAMAN ####[facility] Dtvfwrbncp2515[address] [place], [place] [address]Dr. Charlee Pearson ATYPICAL LYMPH % Normal [facility] Comment on above: Performed By: #### C KERRIE ####[facility] Jpnjswcagd1688 [place] [address]Dr. Charlee Pearson BAND # 1.3 103/ul Critically high 0.0-0.3 [facility] Comment on above: Performed By: #### C KERRIE ####[facility] Ktnwczbhtb32[address] [place], [place] [address]Dr. Charlee Pearson BAND % 4 % Normal 0-5 [facility] Comment on above: Performed By: #### C KERRIE ####[facility] Qdpjjcufvq7429[address] [place], [place] [address]Dr. Charlee Pearson BASOM # 0.00 103/ul Normal 0.00-0.10 [facility] Comment on above: Performed By: #### C BCMAN ####[facility] Bzplxhlmvr8165 [place] [id number]. Charlee Pearson BASOM % 0.0 % Critically low 0.2-2.0 [facility] Comment on above: Performed By: #### C BCMAN ####[facility] Sbxkxohjml5097 [place] [address]Dr. Charlee Pearson BLAST # Normal [facility] Comment on above: Performed By: #### C BCJARON ####[facility] Ufptyujayx3937 [place] [address]Dr. Charlee Pearson BLAST % Normal [facility] Comment on above: Performed By: #### C BCJARON ####[facility] Uvaakntxbx2117[address] [place], [place] [address]Dr. Charlee Pearson CORRECTED WBC Normal 4.0-11.0 [facility] Comment on above: Performed By: #### C BCJARON ####[facility] Izeejpjoqv[address] [place], [place] [address]Dr. Charlee Pearson EOS # 0.00 103/ul Normal 0.00-0.70 [facility] Comment on above: Performed By: #### C BCJARON ####[facility] Pcgyivhsmx217[address] [place], [place] [address]Dr. Charlee Pearson EOS% 0.0 % Critically low 0.9-7.0 [facility] Comment on above: Performed By: #### C BCMAN ####[facility] Wwbvumblkd5196 [place] [address]Dr. Charlee Pearson HCT 33.7 % Critically low 36.0-48.0 [facility] Comment on above: Performed By: #### C BCMAN ####[facility] Sfsodtdikm2871 [place] [address]Dr. Charlee Pearson HGB 11.8 g/dl Critically low 12.0-16.0 [facility] Comment on above: Performed By: #### C BCJARON ####[facility] Awceybtibs7073 [place], [place] [address]Dq. Charlee Pearson LYMPHM # 0.34 103/ul Critically low 1.20-3.80 [facility] Comment on above: Performed By: #### C KERRIE ####[facility] Ugcyeyccxk4782 [place], [place] [address]Ms. Charlee Pearson LYMPHM% 1.0 % Critically low 20.5-60.0 [facility] Comment on above: Performed By: #### C KERRIE ####[facility] Mehnbhrvsn4717 [place], [place] [address]Tx. Charlee Pearson MCH 31.7 pg Normal 26.7-34.0 [facility] Comment on above: Performed By: #### C KERRIE ####[facility] Yvdggcsdza2106 [place] [address]Dr. Charlee Pearson MCHC 35.0 g/dl Normal 29.9-35.2 [facility] Comment on above: Performed By: #### C KERRIE ####[facility] Xzcnyhnyqx9672 [place] [address]Dr. Charlee Pearson MCV 90.6 fL Normal 81.0-99.0 [facility] Comment on above: Performed By: #### C KERRIE ####[facility] Iavgghvvcl6706 [place], [place] [address]Jp. Charlee Pearson METAMYELOCYTE # Normal [facility] Comment on above: Performed By: #### C KERRIE ####[facility] Uyngmelwmy0607 [place], [place] [address]Mp. Charlee Pearson METAMYELOCYTE % Normal [facility] Comment on above: Performed By: #### C KERRIE ####[facility] Mxuewkssud6937 [place], [place] [address]Wm. Charlee Pearson MONOM# 2.02 103/ul Critically high 0.30-0.80 [facility] Comment on above: Performed By: #### C KERRIE ####[facility] Twpupdbshl6681 [place] [address]Dr. Charlee Pearson MONOM% 6.0 % Normal 1.7-12.0 [facility] Comment on above: Performed By: #### C KERRIE ####[facility] Dbnjmdftub4938 [place] [address]Dr. Charlee Pearson MPV 9.2 fL Critically low 9.5-13.5 [facility] Comment on above: Performed By: #### C KERRIE ####[facility] Zhwshlzxzq7026 [place] [address]Dr. Charlee Pearson MYELOCYTE # Normal [facility] Comment on above: Performed By: #### C KERRIE ####[facility] Hzimvmnikx6764 [place] [address]Dr. Charlee Pearson MYELOCYTE % Normal [facility] Comment on above: Performed By: #### C KERRIE ####[facility] Loeiwpzkiq9269 [place] [address]Dr. Charlee Pearson NRBC Normal [facility] Comment on above: Performed By: #### C KERRIE ####[facility] Ixjyubnmez6855 [place] [address]Dr. Charlee Pearson PLT 315 103/ul Normal 150-450 [facility] Comment on above: Performed By: #### C KERRIE ####[facility] Vvoetlseqc7[address] [place], [place] [address]Dr. Charlee Pearson RBC 3.72 106/ul Critically low 4.20-5.40 [facility] Comment on above: Performed By: #### C KERRIE ####[facility] Dhaoccaorj9510 [place] [address]Dr. Charlee Pearson RDW 12.8 % Normal 11.0-15.0 [facility] Comment on above: Performed By: #### C KERRIE ####[facility] Vzkoaseesl2108 [place] [address]Dr. Charlee Pearson SEG # 29.99 103/ul Critically high 1.40-6.50 [facility] Comment on above: Performed By: #### C KERRIE ####[facility] Ybdpuofyzl4135 [place] [address]Dr. Charlee Pearson SEG % 89.0 % Critically high 43.0-75.0 [facility] Comment on above: Performed By: #### C BCMAN ####[facility] Kkgdpazolk6076 [place] [address]Dr. Claudetteclaudette Michel WBC 33.7 103/ul Critically high 4.0-11.0 [facility] Comment on above: Performed By: #### C BCMAN ####[facility] Wbovelyyyw9559 [place] [address]Dr. Charlee Pearson GRAM STAINon 03-22-2022 COMMENTS NO ORGANISMS OBSERVED Normal [facility] Comment on above: Performed By: #### G STAIN ####[facility] Jqypvuwoib6179[address] [place], [place] [address]Dr. Charlee Pearson DIPHTHEROIDS Normal [facility] Comment on above: Performed By: #### G STAIN ####[facility] Zndmykzsrd6482[address] [place], [place] [address]Dr. Charlee Pearson EPITHELIALS Normal [facility] Comment on above: Performed By: #### G STAIN ####[facility] Qgbrlrwyyf3275[address] [place], [place] [address]Dr. Charlee Pearson FUNGAL ELEMENTS Normal [facility] Comment on above: Performed By: #### G STAIN ####[facility] Sjqwzliibd6195[address] [place], [place] [address]Dr. Charlee Pearson GRAM NEG BACILLI Normal [facility] Comment on above: Performed By: #### G STAIN ####[facility] Ufakwqwfzd4469 [place] [address]Dr. Charlee Pearson GRAM NEG DIPPLOCOCCI Normal [facility] Comment on above: Performed By: #### G STAIN ####[facility] Ofsbjowplv2945 [place] [address]Dr. Charlee Pearson GRAM POS BACILLI Normal [facility] Comment on above: Performed By: #### G STAIN ####[facility] Xxmpsgwnfm4502 [place] [address]Dr. Charlee Pearson GRAM POSITIVE COCCI Normal [facility] Comment on above: Performed By: #### G STAIN ####[facility] Mfyvaabwho6751 [place] [address]Dr. Charlee Pearson GRAM STAIN SOURCE Rt Upper Lobe Normal [facility] Comment on above: Performed By: #### G STAIN ####[facility] Vkduwjfyie[address] [place], [place] [address]Dr. Charlee Pearson GRAM STAIN SOURCE Lt Upper Lobe Normal [facility] Comment on above: Performed By: #### G STAIN ####[facility] Ixjsathtla1130 [place] [address]Dr. Charlee Pearson GS_DIPTH Normal [facility] Comment on above: Performed By: #### G STAIN ####[facility] Yxdsdmdbmj367[address] [place], [place] [address]Dr. Charlee Pearson WBC FEW Normal [facility] Comment on above: Performed By: #### G STAIN ####[facility] Zwaqfoiawt9848[address] [place], [place] [address]Dr. Charlee Pearson WBC RARE Normal [facility] Comment on above: Performed By: #### G STAIN ####[facility] Apbjzzpfqe9213[address] [place], [place] [address]Dr. Charlee Pearson PROF CHEM 8 (BAS METB)on Anion gap [Moles/Vol] 9.8 mmol/L Normal [facility] Comment on above: Performed By: #### B MP ####[facility] Tsobfobnyh077[address] [place], [place] [address]Dr. Charlee Pearson Calcium [Mass/Vol] 9.5 mg/dL Normal 8.5-10.1 [facility] Comment on above: Performed By: #### B MP ####[facility] Vubzuauigy8897[address] [place], [place] [address]Dr. Charlee Pearson Chloride [Moles/Vol] 98 mmol/L Normal 98-107 [facility] Comment on above: Performed By: #### B MP ####[facility] Hukakgcybo0046[address] [place], [place] [address]Dr. Charlee Pearson CO2 [Moles/Vol] 31.2 mmol/L Normal 21.0-32.0 [facility] Comment on above: Performed By: #### B MP ####[facility] Tqcettpelr0910 [place] [address]Dr. Charlee Michel Creatinine [Mass/Vol] 0.51 mg/dL Critically low 0.55-1.02 [facility] Comment on above: Performed By: #### B MP ####[facility] Nmyosscwlm9964 [place] [address]Dr. Charlee Michel EGFR-AF BRAZILIAN >60 Normal >=60 [facility] Comment on above: Performed By: #### B MP ####[facility] Ogghpbjieh8798 [place] [address]Dr. Charlee Pearson EGFR-NON AF BRAZILIAN >60 Normal >=60 [facility] Comment on above: Performed By: #### B MP ####[facility] Yuyckqmmtm030[address] [place], [place] [address]Dr. Charlee Pearson Glucose [Mass/Vol] 144 mg/dL Critically high 74-106 T [facility] [place] [facility] Comment on above: Performed By: #### B MP ####[facility] Jdazqnvdvc7179[address] [place], [place] [address]Dr. Charlee Pearson Potassium [Moles/Vol] 3.0 mmol/L Critically low 3.5-5.1 [facility] Comment on above: Performed By: #### B MP ####[facility] Dpchyhebyr3533[address] [place], [place] [address]Dr. Charlee Pearson Sodium [Moles/Vol] 136 mmol/L Normal 136-145 [facility] Comment on above: Performed By: #### B MP ####[facility] Bbqmhwvloz9574[address] [place], [place] [address]Dr. Charlee Pearson Urea nitrogen [Mass/Vol] 8.0 mg/dL Normal 7.0-18.0 [facility] Comment on above: Performed By: #### B MP ####[facility] Okbyhyoynf9364[address] [place], [place] [address]Dr. Charlee Pearson Urea nitrogen/Creatinine [Mass ratio] 15.7 mg/mg Normal [facility] Comment on above: Performed By: #### B MP ####[facility] Rmhctjgcea[address] [place], [place] [address]Dr. Charlee Pearson CBC AUTO DIFFon 03-21-2022 BASO # 0.1 103/ul Normal 0.0-0.1 [facility] Comment on above: Performed By: #### C BC ####[facility] Bakqjmrcng9574 [place] [address]Dr. Charlee Pearson Basophils/100 WBC (Bld) 0.2 % Normal 0.2-2.0 [facility] Comment on above: Performed By: #### C BC ####[facility] Etedmduryu3124 [place] [address]Dr. Charlee Pearson EO # 0.1 103/ul Normal 0.0-0.7 [facility] Comment on above: Performed By: #### C BC ####[facility] Hqxthrwbkn6902 [place] [address]Dr. Charlee Pearson Eosinophils/100 WBC (Bld) 0.4 % Critically low 0.9-7.0 [facility] Comment on above: Performed By: #### C BC ####[facility] Fninnijuai1768 [place] [address]Dr. Charlee Pearson Erythrocyte distribution width (RBC) [Ratio] 12.7 % Normal 11.0-15.0 [facility] Comment on above: Performed By: #### C BC ####[facility] Uirviucczt8009 [place] [address]Dr. Charlee Pearson Hematocrit (Bld) [Volume fraction] 34.2 % Critically low 36.0-48.0 [facility] Comment on above: Performed By: #### C BC ####[facility] Funwbuuuba1307 [place] [address]Dr. Charlee Pearson Hemoglobin (Bld) [Mass/Vol] 11.9 g/dL Critically low 12.0-16.0 [facility] Comment on above: Performed By: #### C BC ####[facility] Fwyjxsccvn8502 [place] [address]Dr. Charlee Pearson IG # 0.74 10e3/ul Critically high 0.00-0.03 [facility] Comment on above: Performed By: #### C BC ####[facility] Xnzzsfnron9498 [place] [address]Dr. Charlee Pearson IG % 2.8 % Critically high 0.0-0.5 [facility] Comment on above: Performed By: #### C BC ####[facility] Sfikzbtyrs1632 [place] [address]Dr. Charlee Pearson LYMPH # 0.4 103/ul Critically low 1.2-3.8 [facility] Comment on above: Performed By: #### C BC ####[facility] Reqgrvgpqz1268 [place] [address]Dr. Charlee Pearson Lymphocytes/100 WBC (Bld) 1.3 % Critically low 20.5-60.0 [facility] Comment on above: Performed By: #### C BC ####[facility] Cgniciofkn5773 [place] [address]Dr. Charlee Pearson MANUAL DIFF REQ NO Normal [facility] Comment on above: Performed By: #### C BC ####[facility] Htfhupgxkl4880 [place] [address]Dr. Charlee Pearson MCH (RBC) [Entitic mass] 31.5 pg Normal 26.7-34.0 [facility] Comment on above: Performed By: #### C BC ####[facility] Adefgafwoz0567 [place] [address]Dr. Charlee Pearson MCHC (RBC) [Mass/Vol] 34.8 g/dL Normal 29.9-35.2 [facility] Comment on above: Performed By: #### C BC ####[facility] Stvxbfkxjk9533 [place] [address]Dr. Charlee Pearson MCV (RBC) [Entitic vol] 90.5 fL Normal 81.0-99.0 [facility] Comment on above: Performed By: #### C BC ####[facility] Odqtpnyquv2633 [place] [address]Dr. Charlee Pearson MONO # 1.4 103/ul Critically high 0.3-0.8 [facility] Comment on above: Performed By: #### C BC ####[facility] Hsthbdvzwx0755 [place] [address]Dr. Charlee Pearson Monocytes/100 WBC (Bld) 5.3 % Normal 1.7-12.0 [facility] Comment on above: Performed By: #### C BC ####[facility] Rlhzsxbucj5603 [place] [address]Dr. Charlee Pearson NEUT # 23.8 103/ul Critically high 1.4-6.5 [facility] Comment on above: Performed By: #### C BC ####[facility] Ardwcijfcs2306 [place] [address]Dr. Charlee Pearson Neutrophils/100 WBC (Bld) 90.0 % Critically high 43.0-75.0 [facility] Comment on above: Performed By: #### C BC ####[facility] Losnqzpebi8828 [place] [address]Dr. Charlee Pearson Platelet mean volume (Bld) [Entitic vol] 9.1 fL Critically low 9.5-13.5 [facility] Comment on above: Performed By: #### C BC ####[facility] Izslgwpywh5037 [place] [address]Dr. Charlee Pearson PLT 316 103/ul Normal 150-450 [facility] Comment on above: Performed By: #### C BC ####[facility] Blbsoyoftt0854 [place] [address]Dr. Charlee Pearson RBC 3.78 106/ul Critically low 4.20-5.40 [facility] Comment on above: Performed By: #### C BC ####[facility] Sfinaoytyh7080 [place] [address]Dr. Charlee Pearson WBC 26.4 103/ul Critically high 4.0-11.0 [facility] Comment on above: Performed By: #### C BC ####[facility] Cqadudrqvn4723 [place] [phone]. Charlee Pearson CT CHEST W CONon 03-21-2022 CT CHEST W CON Normal [facility] PROF CHEM 8 (BAS METB)on Anion gap [Moles/Vol] 11.2 mmol/L Normal [facility] Comment on above: Performed By: #### B MP ####[facility] Qpedwspxko8836 [place] [address]Dr. Claudetteclaudette Pearson Calcium [Mass/Vol] 9.5 mg/dL Normal 8.5-10.1 [facility] Comment on above: Performed By: #### B MP ####[facility] Nnubxsjlgl6289 [place] [address]Dr. Claudetteclaudette Michel Chloride [Moles/Vol] 99 mmol/L Normal 98-107 [facility] Comment on above: Performed By: #### B MP ####[facility] Dzgaldvadt0375[address] [place], [place] [address]Dr. Claudetteclaudette Michel CO2 [Moles/Vol] 29.5 mmol/L Normal 21.0-32.0 [facility] Comment on above: Performed By: #### B MP ####[facility] Ifznfgmbng7778[address] [place], [place] [address]Dr. Charlee Pearson Creatinine [Mass/Vol] 0.61 mg/dL Normal 0.55-1.02 [facility] Comment on above: Performed By: #### B MP ####[facility] Tvkfyhjxkf0876[address] [place], [place] [address]Dr. Claudetteclaudette Michel EGFR-AF BRAZILIAN >60 Normal >=60 [facility] Comment on above: Performed By: #### B MP ####[facility] Lqtslsgplk2456 [place] [address]Dr. Charlee Perason EGFR-NON AF BRAZILIAN >60 Normal >=60 [facility] Comment on above: Performed By: #### B MP ####[facility] Npzzdmwjwu2607 [place] [address]Dr. Charlee Pearson Glucose [Mass/Vol] 162 mg/dL Critically high 74-106 [facility] Comment on above: Performed By: #### B MP ####[facility] Gcdxmwiuzq0543 [place] [address]Dr. Charlee Pearson Potassium [Moles/Vol] 2.7 mmol/L Critically low 3.5-5.1 [facility] Comment on above: Performed By: #### B MP ####[facility] Csxrnbbxil9295 [place] [address]Dr. Claudetteclaudette Michel Sodium [Moles/Vol] 137 mmol/L Normal 136-145 [facility] Comment on above: Performed By: #### B MP ####[facility] Fszkamoyys8402 [place] [address]Dr. Claudetteclaudette Michel Urea nitrogen [Mass/Vol] 7.0 mg/dL Normal 7.0-18.0 [facility] Comment on above: Performed By: #### B MP ####[facility] Iqyvyeoicj5836[address] [place], [place] [address]Dr. Charlee Pearson Urea nitrogen/Creatinine [Mass ratio] 11.5 mg/mg Normal [facility] Comment on above: Performed By: #### B MP ####[facility] Ugjrowicoh5460[address] [place], [place] [address]Dr. Charlee Pearson XR CHEST 2 Von 03-21-2022 XR CHEST 2 V Normal [facility] CBC W MANUAL DIFFon 03-20-20 22 ATYPICAL LYMPH # Normal [facility] Comment on above: Performed By: #### C NENAMAN ####[facility] Dbbheusxmy3495[address] [place], [place] [address]Dr. Claudetteclaudette Michel ATYPICAL LYMPH % Normal [facility] Comment on above: Performed By: #### C BCMAN ####[facility] Yorhlutyri0398 [place] [address]Dr. Charlee Pearson BAND # 1.1 103/ul Critically high 0.0-0.3 [facility] Comment on above: Performed By: #### C BCMAN ####[facility] Msjfflpekr4089 [place] [address]Dr. Charlee Pearson BAND % 5 % Normal 0-5 [facility] Comment on above: Performed By: #### C BCMAN ####[facility] Ywhrrzownw1141 [place] [address]Dr. Charlee Pearson BASOM # 0.00 103/ul Normal 0.00-0.10 [facility] Comment on above: Performed By: #### C BCJARON ####[facility] Vsawbinsmj7034 [place] [address]Dr. Charlee Pearson BASOM % 0.0 % Critically low 0.2-2.0 [facility] Comment on above: Performed By: #### C KERRIE ####[facility] Huscltuvap3579 [place] [address]Dr. Charlee Pearson BLAST # Normal [facility] Comment on above: Performed By: #### C BCJARON ####[facility] Doefkcstvy5350 [place] [address]Dr. Charlee Pearson BLAST % Normal [facility] Comment on above: Performed By: #### C KERRIE ####[facility] Piprmavsmf2701[address] [place], [place] [address]Dr. Charlee Pearson CORRECTED WBC Normal 4.0-11.0 [facility] Comment on above: Performed By: #### C KERRIE ####[facility] Cvrwooyuwq7740[address] [place], [place] [address]Dr. Charlee Pearson EOS # 0.00 103/ul Normal 0.00-0.70 [facility] Comment on above: Performed By: #### C KERRIE ####[facility] Kdlqzjqvtc3946[address] [place], [place] [address]Dr. Charlee Pearson EOS% 0.0 % Critically low 0.9-7.0 [facility] Comment on above: Performed By: #### C KERRIE ####[facility] Obuzyioxez5085[address] [place], [place] [address]Dr. Charlee Pearson HCT 35.0 % Critically low 36.0-48.0 [facility] Comment on above: Performed By: #### C BCJARON ####[facility] Alwrehanbw549[address] [place], [place] [address]Dr. Charlee Pearson HGB 12.1 g/dl Normal 12.0-16.0 [facility] Comment on above: Performed By: #### C KERRIE ####[facility] Qvesdhwecc9887[address] [place], [place] [address]Dr. Charlee Pearson LYMPHM # 0.46 103/ul Critically low 1.20-3.80 [facility] Comment on above: Performed By: #### C KERRIE ####[facility] Uletrpolbz9402 [place] [address]Dr. Charlee Pearson LYMPHM% 2.0 % Critically low 20.5-60.0 [facility] Comment on above: Performed By: #### C KERRIE ####[facility] Geblfprfef5963 [place] [address]Dr. Charlee Pearson MCH 31.6 pg Normal 26.7-34.0 [facility] Comment on above: Performed By: #### C KERRIE ####[facility] Rplpnqpark2739 [place] [address]Dr. Charlee Pearson MCHC 34.6 g/dl Normal 29.9-35.2 [facility] Comment on above: Performed By: #### C KERRIE ####[facility] Gfaekndzgb5436[address] [place], [place] [address]Dr. Charlee Pearson MCV 91.4 fL Normal 81.0-99.0 [facility] Comment on above: Performed By: #### C KERRIE ####[facility] Kyipclrtro60[address] [place], [place] [address]Dr. Charlee Pearson METAMYELOCYTE # Normal [facility] Comment on above: Performed By: #### C KERRIE ####[facility] Hcypcnjeof[address] [place], [place] [address]Dr. Charlee Pearson METAMYELOCYTE % Normal [facility] Comment on above: Performed By: #### C KERRIE ####[facility] Hxiperbxdb5129 [place] [phone]. Charlee Pearson MONOM# 0.23 103/ul Critically low 0.30-0.80 [facility] Comment on above: Performed By: #### C KERRIE ####[facility] [facility] [address] [place] [address]Dr. Charlee Pearson MONOM% 1.0 % Critically low 1.7-12.0 [facility] Comment on above: Performed By: #### C KERRIE ####[facility] Dixhvzzbpg7616 [place], [place] [address]Yv. Charlee Pearson MPV 9.5 fL Normal 9.5-13.5 [facility] Comment on above: Performed By: #### C KERRIE ####[facility] Ihhskdjlil6494 [place], [place] [address]Ap. Charlee Pearson MYELOCYTE # Normal [facility] Comment on above: Performed By: #### C KERRIE ####[facility] Pqjtcrakdz5892 [place], [place] [address]Ka. Charlee Pearson MYELOCYTE % Normal [facility] Comment on above: Performed By: #### C KERRIE ####[facility] Bogwizlyoo[address] [place] [id number]. Charlee Pearson NRBC Normal [facility] Comment on above: Performed By: #### C KERRIE ####[facility] Jvsnykkquz6475 [place] [id number]. Charlee Pearson PLT 275 103/ul Normal 150-450 [facility] Comment on above: Performed By: #### C KERRIE ####[facility] Yfxwjbbxib3282 [place] [id number]. Charlee Pearson RBC 3.83 106/ul Critically low 4.20-5.40 [facility] Comment on above: Performed By: #### C KERRIE ####[facility] Hggktrjutb3880 [place] [id number]. Charlee Pearson RDW 12.5 % Normal 11.0-15.0 [facility] Comment on above: Performed By: #### C KERRIE ####[facility] Ufaomgxmry2343 [place], [place] [address]Es. Charlee Pearson SEG # 20.98 103/ul Critically high 1.40-6.50 [facility] Comment on above: Performed By: #### C KERRIE ####[facility] Gbsfltmhzy8729 [place] [id number]. Charlee Pearson SEG % 92.0 % Critically high 43.0-75.0 [facility] Comment on above: Performed By: #### C KERRIE ####[facility] Ecjxqoproj75[address] [place] [id number]. Charlee Michel WBC 22.8 103/ul Critically high 4.0-11.0 [facility] Comment on above: Performed By: #### C BCMAN ####[facility] Whpztkxmys9836 [place] [phone]. Charlee Pearson PROF CHEM 8 (BAS METB)on Anion gap [Moles/Vol] 11.7 mmol/L Normal [facility] Comment on above: Performed By: #### B MP ####[facility] Xsonofjsbl3534 [place] [address]Dr. Charlee Pearson Calcium [Mass/Vol] 9.4 mg/dL Normal 8.5-10.1 [facility] Comment on above: Performed By: #### B MP ####[facility] Hnswxuguvt[address] [place], [place] [address]Dr. Charlee Pearson Chloride [Moles/Vol] 99 mmol/L Normal 98-107 [facility] Comment on above: Performed By: #### B MP ####[facility] Zdknmnabtw2843 [place] [address]Dr. Charlee Pearson CO2 [Moles/Vol] 27.4 mmol/L Normal 21.0-32.0 [facility] Comment on above: Performed By: #### B MP ####[facility] Mgkdxwnkxq9747 [place] [address]Dr. Charlee Pearson Creatinine [Mass/Vol] 0.55 mg/dL Normal 0.55-1.02 [facility] Comment on above: Performed By: #### B MP ####[facility] Cloitswujf3663 [place] [id number]. Charlee Pearson EGFR-AF BRAZILIAN >60 Normal >=60 [facility] Comment on above: Performed By: #### B MP ####[facility] Krxslwrktr9713 [place] [phone]. Charlee Pearson EGFR-NON AF BRAZILIAN >60 Normal >=60 [facility] Comment on above: Performed By: #### B MP ####[facility] Lqmxnriukj0779 [place] [id number]. Charlee Pearson Glucose [Mass/Vol] 156 mg/dL Critically high 74-106 T [facility] [place] [facility] Comment on above: Performed By: #### B MP ####[facility] Zycqozrdco5870 [place] [address]Dr. Charlee Pearson Potassium [Moles/Vol] 3.1 mmol/L Critically low 3.5-5.1 [facility] Comment on above: Performed By: #### B MP ####[facility] Cmnqwdjcyt9050[address] [place], [place] [address]Dr. Charlee Pearson Sodium [Moles/Vol] 135 mmol/L Critically low 136-145 [facility] Comment on above: Performed By: #### B MP ####[facility] Aqhtctczri6832[address] [place], [place] [address]Dr. Charlee Pearson Urea nitrogen [Mass/Vol] 5.0 mg/dL Critically low 7.0-18.0 [facility] Comment on above: Performed By: #### B MP ####[facility] Xjxlpmccjw08[address] [place], [place] [address]Dr. Charlee Pearson Urea nitrogen/Creatinine [Mass ratio] 9.1 mg/mg Normal [facility] Comment on above: Performed By: #### B MP ####[facility] Nnwtrwlucc5155[address] [place], [place] [address]Dr. Charlee Pearson CBC AUTO DIFFon 03-19-2022 BASO # 0.0 103/ul Normal 0.0-0.1 [facility] Comment on above: Performed By: #### C BC ####[facility] Rrssulksav08[address] [place], [place] [address]Dr. Charlee Pearson Basophils/100 WBC (Bld) 0.1 % Critically low 0.2-2.0 [facility] Comment on above: Performed By: #### C BC ####[facility] Vjpummlyaj2706[address] [place], [place] [address]Dr. Charlee Pearson EO # 0.0 103/ul Normal 0.0-0.7 [facility] Comment on above: Performed By: #### C BC ####[facility] Waqchfyxsz5[address] [place] [phone]. Charlee Pearson Eosinophils/100 WBC (Bld) 0.0 % Critically low 0.9-7.0 [facility] Comment on above: Performed By: #### C BC ####[facility] Qubpxpcjlh9[address] [place] [address]Dr. Charlee Pearson Erythrocyte distribution width (RBC) [Ratio] 12.9 % Normal 11.0-15.0 [facility] Comment on above: Performed By: #### C BC ####[facility] Wuifjjghkv64[address] [place], [place] [address]Dr. Charlee Pearson Hematocrit (Bld) [Volume fraction] 35.9 % Critically low 36.0-48.0 [facility] Comment on above: Performed By: #### C BC ####[facility] Dcdojllgeo3938[address] [place], [place] [address]Dr. Charlee Pearson Hemoglobin (Bld) [Mass/Vol] 12.0 g/dL Normal 12.0-16.0 [facility] Comment on above: Performed By: #### C BC ####[facility] Gssrjyacsb40[address] [place], [place] [address]Dr. Charlee Pearson IG # 0.41 10e3/ul Critically high 0.00-0.03 [facility] Comment on above: Performed By: #### C BC ####[facility] Gyyofyybdy3132[address] [place], [place] [address]Dr. Charlee Pearson IG % 1.8 % Critically high 0.0-0.5 [facility] Comment on above: Performed By: #### C BC ####[facility] Aqibvrtjkr[address] [place], [place] [address]Dr. Charlee Pearson LYMPH # 0.4 103/ul Critically low 1.2-3.8 [facility] Comment on above: Performed By: #### C BC ####[facility] Nlurhvqlna47[address] [place], [place] [address]Dr. Charlee Pearson Lymphocytes/100 WBC (Bld) 1.9 % Critically low 20.5-60.0 [facility] Comment on above: Performed By: #### C BC ####[facility] Bzwpepuxnq95[address] [place] [address]Dr. Charlee Pearson MANUAL DIFF REQ NO Normal [facility] Comment on above: Performed By: #### C BC ####[facility] Gzngejbgwb0992 [place] [phone]. Charlee Pearson MCH (RBC) [Entitic mass] 31.4 pg Normal 26.7-34.0 [facility] Comment on above: Performed By: #### C BC ####[facility] Rlpaoqdrbx7996 [place] [address]Dr. Charlee Pearson MCHC (RBC) [Mass/Vol] 33.4 g/dL Normal 29.9-35.2 [facility] Comment on above: Performed By: #### C BC ####[facility] Cjzxaotcqd7199[address] [place], [place] [address]Dr. Charlee Pearson MCV (RBC) [Entitic vol] 94.0 fL Normal 81.0-99.0 [facility] Comment on above: Performed By: #### C BC ####[facility] Ubxtyngvwk7939 [place] [address]Dr. Charlee Pearsno MONO # 0.4 103/ul Normal 0.3-0.8 [facility] Comment on above: Performed By: #### C BC ####[facility] Zndwvwbvzy5644 [place] [address]Dr. Charlee Pearson Monocytes/100 WBC (Bld) 1.8 % Normal 1.7-12.0 [facility] Comment on above: Performed By: #### C BC ####[facility] Rlyleuovge5949 [place] [address]DrOttoniel Pearson NEUT # 21.1 103/ul Critically high 1.4-6.5 [facility] Comment on above: Performed By: #### C BC ####[facility] Lkzzpclogs6826 [place] [address]DrOttoniel Pearson Neutrophils/100 WBC (Bld) 94.4 % Critically high 43.0-75.0 [facility] Comment on above: Performed By: #### C BC ####[facility] Afieeakmhk96[address] [place] [address]Dr. Charlee Pearson Platelet mean volume (Bld) [Entitic vol] 9.0 fL Critically low 9.5-13.5 [facility] Comment on above: Performed By: #### C BC ####[facility] Qhvcfglenl6339 [place] [address]DrOttoniel Pearson PLT 218 103/ul Normal 150-450 [facility] Comment on above: Performed By: #### C BC ####[facility] Mktkimpjrp4944 [place] [phone]. Charlee Pearson RBC 3.82 106/ul Critically low 4.20-5.40 [facility] Comment on above: Performed By: #### C BC ####[facility] Frlpbghhox4590 [place] [address]DrOttoniel Pearson WBC 22.4 103/ul Critically high 4.0-11.0 [facility] Comment on above: Performed By: #### C BC ####[facility] Xoqgzqddny1119 [place] [address]DrOttoniel Pearson PROF CHEM 8 (BAS METB)on Anion gap [Moles/Vol] 15.6 mmol/L Normal [facility] Comment on above: Performed By: #### B MP ####[facility] Yixgumxpbn4134 [place] [address]DrOttoniel Pearson Calcium [Mass/Vol] 9.0 mg/dL Normal 8.5-10.1 [facility] Comment on above: Performed By: #### B MP ####[facility] Zdutiwbbmi0831 [place] [address]DrOttoniel Pearson Chloride [Moles/Vol] 98 mmol/L Normal 98-107 [facility] Comment on above: Performed By: #### B MP ####[facility] Dsdmukfxil6746 [place] [address]DrOttoniel Pearson CO2 [Moles/Vol] 23.5 mmol/L Normal 21.0-32.0 [facility] Comment on above: Performed By: #### B MP ####[facility] Dczvxwllte0166 [place] [address]Dr. Claudetteclaudette Michel Creatinine [Mass/Vol] 0.59 mg/dL Normal 0.55-1.02 [facility] Comment on above: Performed By: #### B MP ####[facility] Fasvyjyaai7043 [place] [address]Dr. Claudetteclaudette Michel EGFR-AF BRAZILIAN >60 Normal >=60 [facility] Comment on above: Performed By: #### B MP ####[facility] Dgifgzpcuo8442 [place] [address]Dr. Charlee Pearson EGFR-NON AF BRAZILIAN >60 Normal >=60 [facility] Comment on above: Performed By: #### B MP ####[facility] Qngcprjfsn1690[address] [place], [place] [address]Dr. Charlee Pearson Glucose [Mass/Vol] 169 mg/dL Critically high 74-106 T [facility] [place] [facility] Comment on above: Performed By: #### B MP ####[facility] Kaxrrlijsk4184[address] [place], [place] [address]Dr. Charlee Pearson Potassium [Moles/Vol] 4.1 mmol/L Normal 3.5-5.1 [facility] Comment on above: Performed By: #### B MP ####[facility] Melyhzpplb4045[address] [place], [place] [address]Dr. Charlee Pearson Sodium [Moles/Vol] 133 mmol/L Critically low 136-145 [facility] Comment on above: Performed By: #### B MP ####[facility] Kogssiuajb6540 [place] [address]Dr. Charlee Pearson Urea nitrogen [Mass/Vol] 8.0 mg/dL Normal 7.0-18.0 [facility] Comment on above: Performed By: #### B MP ####[facility] Zjcrmwccxb9221 [place] [address]Dr. Charlee Pearson Urea nitrogen/Creatinine [Mass ratio] 13.6 mg/mg Normal [facility] Comment on above: Performed By: #### B MP ####[facility] Cgfztaobhs2050 [place] [id number]. Charlee Pearson XR CHEST 2 Von 03-19-2022 XR CHEST 2 V Normal [facility] BLOOD CULTURE ID PANELon A. baumannii Not detected Normal NOT DETECTED [facility] Comment on above: Performed By: #### B CID2 ####[facility] Tpvmaqskta779[address] [place], [place] [address]Dr. Charlee Pearson Bacteriodes fragilis Not detected Normal NOT DETECTED [facility] Comment on above: Performed By: #### B CID2 ####[facility] Gqndszlaqg7089[address] [place], [place] [address]Dr. Charlee Michel BCID CONTROLS PASSED Normal [facility] Comment on above: Performed By: #### B CID2 ####[facility] Wnkbjjqmsz9070[address] [place], [place] [address]Dr. Charlee Michel BCIDBTHD BLOOD CULTURE BOTTLE INFORMATION Normal [facility] Comment on above: Performed By: #### B CID2 ####[facility] Uvsbmkjeaw4198[address] [place], [place] [address]Dr. Charlee Pearson BCIDHD1 ANTIMICROBIAL RESISTANCE GENES Normal [facility] Comment on above: Performed By: #### B CID2 ####[facility] Gjozhrmwch299[address] [place], [place] [address]Dr. Charlee Pearson BCIDHD2 SEE BELOW Normal [facility] Comment on above: Result Comment: Note : Antimicrobial resitance can occur via multiple mechanisms. A Not Detected result for the [employer] antomicrobial resistance gene assays does not indicate antimicrobial susceptibility. Subculturing is required for species identification and susceptibility testing of isolates. Performed By: #### B CID2 ####[facility] Oywauszsbj2510[address] [place], [place] [address]Dr. Charlee Pearson BCIDHD3 Positive Normal [facility] Comment on above: Performed By: #### B CID2 ####[facility] Cmdiuszpvp3156[address] [place], [place] [address]Dr. Charlee Pearson BCIDHD4 Negative Normal [facility] Comment on above: Performed By: #### B CID2 ####[facility] Mmgnqmxrah3056 [place] [address]Dr. Charlee Pearson BCIDHD5 YEAST Normal [facility] Comment on above: Performed By: #### B CID2 ####[facility] Gtdkjoevxt4404 [place] [address]Dr. Claudettelan Pearson Bottle Set: Set 2 Normal [facility] Comment on above: Performed By: #### B CID2 ####[facility] Qdiilxwgze8923[address] [place], [place] [address]Dr. Charlee Pearson Bottle: Aerobic Normal [facility] Comment on above: Performed By: #### B CID2 ####[facility] Znxekcyrgb6257[address] [place], [place] [address]Dr. Charlee Pearson C. neoformans/gattii Not detected Normal NOT DETECTED [facility] Comment on above: Performed By: #### B CID2 ####[facility] Jkdktoihlc82[address] [place], [place] [address]Dr. Charlee Pearson Esperanza albicans Not detected Normal NOT DETECTED [facility] Comment on above: Performed By: #### B CID2 ####[facility] Cpqbwsnrsq7042[address] [place], [place] [address]Dr. Charlee Pearson Esperanza auris Not detected Normal NOT DETECTED [facility] Comment on above: Performed By: #### B CID2 ####[facility] Tskjqcnxmr6046[address] [place], [place] [address]Dr. Charlee Pearson Esperanza glabrata Not detected Normal NOT DETECTED [facility] Comment on above: Performed By: #### B CID2 ####[facility] Rhudwajybq819[address] [place], [place] [address]Dr. Charlee Pearson Esperanza Krusei Not detected Normal NOT DETECTED [facility] Comment on above: Performed By: #### B CID2 ####[facility] Idhwxtywwj359[address] [place], [place] [address]Dr. Charlee Pearson Esperanza Parapsilosis Not detected Normal NOT DETECTED [facility] Comment on above: Performed By: #### B CID2 ####[facility] Hpmvzkthfz2750[address] [place], [place] [address]Dr. Charlee Pearson Esperanza Tropicalis Not detected Normal NOT DETECTED [facility] Comment on above: Performed By: #### B CID2 ####[facility] Nlhcyeuvfu6963[address] [place], [place] [address]Dr. Charlee Pearson CTX-M Resistant Gene Not Applicable Normal NOT DETECTE D [facility] Comment on above: Performed By: #### B CID2 ####[facility] Icczhlutwf0280[address] [place], [place] [address]Dr. Charlee Pearson E. Cloacae complex Not detected Normal NOT DETECTED [facility] Comment on above: Performed By: #### B CID2 ####[facility] Juqbropztl5897[address] [place], [place] [address]Dr. Charlee Pearson E. faecalis Not detected Normal NOT DETECTED [facility] Comment on above: Performed By: #### B CID2 ####[facility] Apxpmzbnvu4443[address] [place], [place] [address]Dr. Charlee Pearson E. faecium Not detected Normal NOT DETECTED [facility] Comment on above: Performed By: #### B CID2 ####[facility] Tluwybawgq0943[address] [place], [place] [address]Dr. Charlee Pearson Enterobacteriaceae Not detected Normal NOT DETECTED [facility] Comment on above: Performed By: #### B CID2 ####[facility] Jsdscqxsxk2028[address] [place], [place] [address]Dr. Charlee Pearson Escherichia coli Not detected Normal NOT DETECTED [facility] Comment on above: Performed By: #### B CID2 ####[facility] Uenncibynv7126[address] [place], [place] [address]Dr. Charlee Pearson H. influenzae Not detected Normal NOT DETECTED [facility] Comment on above: Performed By: #### B CID2 ####[facility] Udtbekmlxo230[address] [place], [place] [address]Dr. Charlee Pearson IMP Resistant Gene Not Applicable Normal NOT DETECTED [facility] Comment on above: Performed By: #### B CID2 ####[facility] Iafivofgzb4860[address] [place], [place] [address]Dr. Charlee Pearson K. oxytoca Not detected Normal NOT DETECTED [facility] Comment on above: Performed By: #### B CID2 ####[facility] Vdkjwtsyif9830[address] [place], [place] [address]Dr. Charlee Pearson K. pneumoniae Not detected Normal NOT DETECTED [facility] Comment on above: Performed By: #### B CID2 ####[facility] Ekvzljrldg8906[address] [place], [place] [address]Dr. Charlee Pearson Klebsiella aerogenes Not detected Normal NOT DETECTED [facility] Comment on above: Performed By: #### B CID2 ####[facility] Jcxspfmhbh4460[address] [place], [place] [address]Dr. Claudetteclaudette Pearson KPC Resistant Gene Not Applicable Normal NOT DETECTED [facility] Comment on above: Performed By: #### B CID2 ####[facility] Ylqblhoqes3199[address] [place], [place] [address]Dr. Charlee Pearson List. monocytogenes Not detected Normal NOT DETECTED [facility] Comment on above: Performed By: #### B CID2 ####[facility] Gxoryqiszn5939[address] [place], [place] [address]Dr. Charlee Pearson Mcr-1 Resistant Gene Not Applicable Normal NOT DETECTE D [facility] Comment on above: Performed By: #### B CID2 ####[facility] Tcysleetmg6115[address] [place], [place] [address]Dr. Claudettelan Pearson mecA/C Not detected Normal NOT DETECTED [facility] Comment on above: Performed By: #### B CID2 ####[facility] Aszrrfkmiq7829[address] [place], [place] [address]Dr. Charlee Michel mecA/C MREJ Not Applicable Normal NOT DETECTED [facility] Comment on above: Performed By: #### B CID2 ####[facility] Bzetcdsbie6223[address] [place], [place] [address]Dr. Charlee Pearson N. meningitidis Not detected Normal NOT DETECTED [facility] Comment on above: Performed By: #### B CID2 ####[facility] Seyxkipkrx7538[address] [place], [place] [address]Dr. Charlee Pearson NDM Resistant Gene Not Applicable Normal NOT DETECTED [facility] Comment on above: Performed By: #### B CID2 ####[facility] Wxiitnvdtt9366[address] [place], [place] [address]Dr. Claudetteclaudette Pearson Oxa-48-like Not Applicable Normal NOT DETECTED [facility] Comment on above: Performed By: #### B CID2 ####[facility] Tiyeknmatp4060[address] [place], [place] [address]Dr. Charlee Pearson Proteus Not detected Normal NOT DETECTED [facility] Comment on above: Performed By: #### B CID2 ####[facility] Djhzvebwav7424[address] [place], [place] [address]Dr. Charlee Pearson Pseud. aeruginosa Not detected Normal NOT DETECTED [facility] Comment on above: Performed By: #### B CID2 ####[facility] Gdpffatpcl9103[address] [place], [place] [address]Dr. Charlee Pearson S. maltophilia Not detected Normal NOT DETECTED [facility] Comment on above: Performed By: #### B CID2 ####[facility] Uwgmtcwqhf586[address] [place], [place] [address]Dr. Charlee Pearson Salmonella Not detected Normal NOT DETECTED [facility] Comment on above: Performed By: #### B CID2 ####[facility] Gzmgrvawxv7240[address] [place], [place] [address]Dr. Claudetteclaudette Pearson Seratia marcescens Not detected Normal NOT DETECTED [facility] Comment on above: Performed By: #### B CID2 ####[facility] Zzzimhlkoz4367[address] [place], [place] [address]Dr. Charlee Pearson Site: left arm Normal [facility] Comment on above: Performed By: #### B CID2 ####[facility] Xphpwonfzk2518[address] [place], [place] [address]Dr. Charlee Pearson Staph. aureus Not detected Normal NOT DETECTED [facility] Comment on above: Performed By: #### B CID2 ####[facility] Iysealnwbt5334[address] [place], [place] [address]Dr. Charlee Pearson Staph. epidermidis Detected Abnormal NOT DETECTED [facility] Comment on above: Performed By: #### B CID2 ####[facility] Zubdejpauy60[address] [place] [address]Dr. Charlee Pearson Staph. lugdunensis Not detected Normal NOT DETECTED [facility] Comment on above: Performed By: #### B CID2 ####[facility] Tnwpuuoiae8610[address] [place], [place] [address]Dr. Charlee Pearson Staphylococcus Detected Abnormal NOT DETECTED [facility] Comment on above: Performed By: #### B CID2 ####[facility] Rrqdegztni7238[address] [place], [place] [address]Dr. Charlee Pearson Strep. agalactiae Not detected Normal NOT DETECTED [facility] Comment on above: Performed By: #### B CID2 ####[facility] Figwjfgqwl8986[address] [place], [place] [address]Dr. Charlee Pearson Strep. pneumoniae Not detected Normal NOT DETECTED [facility] Comment on above: Performed By: #### B CID2 ####[facility] Lqyaiphsjw1982[address] [place], [place] [address]Dr. Charlee Pearson Strep. pyogenes Not detected Normal NOT DETECTED [facility] Comment on above: Performed By: #### B CID2 ####[facility] Wbdawfwknb5555[address] [place], [place] [address]Dr. Charlee Pearson Streptococcus Not detected Normal NOT DETECTED [facility] Comment on above: Performed By: #### B CID2 ####[facility] Jgytgogdmh1872[address] [place], [place] [address]Dr. Charlee Pearson Lulu/B Resist. Gene Not Applicable Normal NOT DETECTED [facility] Comment on above: Performed By: #### B CID2 ####[facility] Rkvwiwxvcr4338[address] [place], [place] [address]Dr. Charlee Pearson VIM Resistant Gene Not Applicable Normal NOT DETECTED [facility] Comment on above: Performed By: #### B CID2 ####[facility] Bvncekptai2779[address] [place], [place] [address]Dr. Charlee Pearson CBC W MANUAL DIFFon 03-18-20 22 ATYPICAL LYMPH # Normal [facility] Comment on above: Performed By: #### C BCMAN ####[facility] Wduunxlmlo0724 [place] [address]Dr. Charlee Pearson ATYPICAL LYMPH % Normal [facility] Comment on above: Performed By: #### C BCMAN ####[facility] Pgqvhmbvil3955 [place] [address]Dr. Yilan Pearson BAND # Normal 0.0-0.3 [facility] Comment on above: Performed By: #### C BCMAN ####[facility] Sjeglzwkgb2352 [place] [address]Dr. Yilan Pearson BAND % Normal 0-5 [facility] Comment on above: Performed By: #### C BCMAN ####[facility] Kpndchxwdv[address] [place], [place] [address]Dr. Yilan Pearson BASOM # 0.00 103/ul Normal 0.00-0.10 [facility] Comment on above: Performed By: #### C BCMAN ####[facility] Obsikoqscs[address] [place], [place] [address]Dr. Yiclaudette Pearson BASOM % 0.0 % Critically low 0.2-2.0 [facility] Comment on above: Performed By: #### C BCJARON ####[facility] Rszinsiosx[address] [place], [place] [address]Dr. Yilan Pearson BLAST # Normal [facility] Comment on above: Performed By: #### C BCJARON ####[facility] Pxesjizpyu30[address] [place] [address]Dr. Yilan Pearson BLAST % Normal [facility] Comment on above: Performed By: #### C BCJARON ####[facility] Btnfynvvmy7135 [place] [address]Dr. Charlee Pearson CORRECTED WBC Normal 4.0-11.0 [facility] Comment on above: Performed By: #### C BCMAN ####[facility] Offrbbudei[address] [place], [place] [address]Dr. Yilan Pearson EOS # 0.00 103/ul Normal 0.00-0.70 [facility] Comment on above: Performed By: #### C BCJARON ####[facility] Z[address]geuoxhis[address] [place], [place] [address]Dr. Yilan Pearson EOS% 0.0 % Critically low 0.9-7.0 [facility] Comment on above: Performed By: #### C KERRIE ####[facility] Xndxuyowzl6510 [place] [id number]. Charlee Pearson HCT 42.8 % Normal 36.0-48.0 [facility] Comment on above: Performed By: #### C KERRIE ####[facility] Pegzauvlxm2427 [place] [id number]. Charlee Pearson HGB 14.4 g/dl Normal 12.0-16.0 [facility] Comment on above: Performed By: #### Jenny SY ####[facility] Qdbimdrgky7126 [place] [address]Dr. Charlee Pearson LYMPHM # 1.43 103/ul Normal 1.20-3.80 [facility] Comment on above: Performed By: #### Jenny SY ####[facility] Sizmhprvce[address] [place] [address]Dr. Charlee Pearson LYMPHM% 5.0 % Critically low 20.5-60.0 [facility] Comment on above: Performed By: #### Jenny SY ####[facility] Lwfeqdbplx9587 [place] [id number]. Charlee Pearson MCH 31.8 pg Normal 26.7-34.0 [facility] Comment on above: Performed By: #### Jenny SY ####[facility] Klejnbxvqo3099 [place] [address]Dr. Charlee Pearson MCHC 33.6 g/dl Normal 29.9-35.2 [facility] Comment on above: Performed By: #### Jenny SY ####[facility] Daveiyfwvm0199 [place] [address]Dr. Charlee Pearson MCV 94.5 fL Normal 81.0-99.0 [facility] Comment on above: Performed By: #### Jenny SY ####[facility] Noiqglmmjv9[address] [place] [id number]. Charlee Pearson METAMYELOCYTE # Normal [facility] Comment on above: Performed By: #### C KERRIE ####[facility] Pgzndhkrxf4218 [place], [place] [address]Mo. Charlee Pearson METAMYELOCYTE % Normal [facility] Comment on above: Performed By: #### C KERRIE ####[facility] Umgqwnxiaf9052 [place], [place] [address]Lj. Charlee Pearson MONOM# 1.43 103/ul Critically high 0.30-0.80 [facility] Comment on above: Performed By: #### C KERRIE ####[facility] Likgvgqexd8360 [place], [place] [address]Bi. Charlee Pearson MONOM% 5.0 % Normal 1.7-12.0 [facility] Comment on above: Performed By: #### C KERRIE ####[facility] Odqtmhvrlf9750 [place] [id number]. Charlee Pearson MPV 9.2 fL Critically low 9.5-13.5 [facility] Comment on above: Performed By: #### C KERRIE ####[facility] Imbpxjnxnc8526 [place] [id number]. Charlee Pearson MYELOCYTE # Normal [facility] Comment on above: Performed By: #### C KERRIE ####[facility] Dljuhwpgru1218 [place], [place] [address]N[place]. Charlee Pearson MYELOCYTE % Normal [facility] Comment on above: Performed By: #### C KERRIE ####[facility] Obpzjisdyn8318 [place] [id number]. Charlee Pearson NRBC Normal [facility] Comment on above: Performed By: #### C KERRIE ####[facility] Lyozaqakwo6902 [place] [id number]. Charlee Pearson PLT 262 103/ul Normal 150-450 [facility] Comment on above: Performed By: #### C KERRIE ####[facility] Rgqqwzllfk8737 [place] [address]Dr. Claudetteclaudette Pearson RBC 4.53 106/ul Normal 4.20-5.40 [facility] Comment on above: Performed By: #### C NENAMAN ####[facility] Rjxxsjcniu0027 [place], [place] [address]Mg. Charlee Pearson RDW 12.9 % Normal 11.0-15.0 [facility] Comment on above: Performed By: #### C BCMAN ####[facility] Yqbwucchnx6043 [place], [place] [address]Yx. Charlee Pearson SEG # 25.65 103/ul Critically high 1.40-6.50 [facility] Comment on above: Performed By: #### C BCMAN ####[facility] Gmyxqzawlr6337 [place], [place] [address]Ms. Charlee Pearson SEG % 90.0 % Critically high 43.0-75.0 [facility] Comment on above: Performed By: #### C BCMAN ####[facility] Anmkqfbbag1533 [place] [id number]. Charlee Pearson WBC 28.5 103/ul Critically high 4.0-11.0 [facility] Comment on above: Performed By: #### C KERRIE ####[facility] Vfexeunfmj2689 [place], [place] [address]Gx. Charlee Pearson CULTURE BLOODon 03-18-2022 Microscopic examination of blood, culture Culture Observations: YENNY TO FOLLOW. Isolate 1 Staphylococcus epidermidis Normal [facility] Comment on above: Performed By: #### B LDCX2 ####[facility] Sbvronxqcy7591 [place] [id number]. Charlee Pearson Microscopic examination of blood, culture Culture Observations: NO GROWTH AT 5 DAYS. Normal [facility] Comment on above: Performed By: #### B LDCX1 ####[facility] Tbqwetmcxm2204 [place] [address]Dr. Charlee Michel Covid-19 PCR (CVDTB)on 02-23 SARS-CoV-2 (COVID-19) RNA LORENZO+probe Ql (Unsp spec) Not detected Normal NOT DETECTED [facility] Comment on above: Result Comment: When [...] for this test is supported by the [employer] and Human Service's declaration that [...] be used). Performed By: #### C VDTB ####[facility] Akmp[address] [place], [place] [address]Dr. Charlee Pearson LACTATE/LACTIC ACIDon 2021 Lactate [Moles/Vol] 1.4 mmol/L Normal 0.4-1.9 [facility] Comment on above: Performed By: #### L ACT ####[facility] Orrxouiahs[address] [place], [place] [address]Dr. Charlee Pearson Lactate [Moles/Vol] 1.8 mmol/L Normal 0.4-1.9 [facility] Comment on above: Performed By: #### L ACT ####[facility] Ezacjtdnjj[address] [place], [place] [address]Dr. Charlee Pearson PROF 14(COMP METB)on 022 Albumin [Mass/Vol] 3.9 g/dL Normal 3.4-5.0 [facility] Comment on above: Performed By: #### C MP ####[facility] Tzgdcwbyaw[address] [place], [place] [address]Dr. Charlee Pearson Albumin/Globulin [Mass ratio] 0.8 {ratio} Normal [facility] Comment on above: Performed By: #### C MP ####[facility] Ywirbrokwk[address] [place], [place] [address]Dr. Charlee Pearson ALP [Catalytic activity/Vol] 88 U/L Normal 46-116 [facility] Comment on above: Performed By: #### C MP ####[facility] Zbnfpoiihn9775 [place] [address]Dr. Charlee Pearson ALT [Catalytic activity/Vol] 37 U/L Normal 14-59 [facility] Comment on above: Performed By: #### C MP ####[facility] Jftcubipva4443 [place] [address]Dr. Charlee Pearson Anion gap [Moles/Vol] 16.2 mmol/L Normal [facility] Comment on above: Performed By: #### C MP ####[facility] Vlwagjxvaz5741 [place] [address]Dr. Charlee Pearson AST [Catalytic activity/Vol] 44 U/L Critically high 15-37 [facility] Comment on above: Performed By: #### C MP ####[facility] Ybdpccwdxf2233 [place] [address]Dr. Charlee Michel Bilirubin [Mass/Vol] 0.6 mg/dL Normal 0.2-1.0 [facility] Comment on above: Performed By: #### C MP ####[facility] Dekhggwedr0394 [place] [address]Dr. Charlee Michel Calcium [Mass/Vol] 9.4 mg/dL Normal 8.5-10.1 [facility] Comment on above: Performed By: #### C MP ####[facility] Zsymnfyemi6349 [place] [address]Dr. Claudetteclaudette Michel Chloride [Moles/Vol] 93 mmol/L Critically low 98-107 [facility] Comment on above: Performed By: #### C MP ####[facility] Oztdlbvztn2120 [place] [address]Dr. Charlee Pearson CO2 [Moles/Vol] 25.1 mmol/L Normal 21.0-32.0 [facility] Comment on above: Performed By: #### C MP ####[facility] [address] [place], [place] [address]Dr. Charlee Michel Creatinine [Mass/Vol] 0.74 mg/dL Normal 0.55-1.02 [facility] Comment on above: Performed By: #### C MP ####[facility] Pmoayyblme0698 [place] [address]Dr. Charlee Pearson EGFR-AF BRAZILIAN >60 Normal >=60 [facility] Comment on above: Performed By: #### C MP ####[facility] Gdhnaozynl2998 [place] [address]Dr. Charlee Pearson EGFR-NON AF BRAZILIAN >60 Normal >=60 [facility] Comment on above: Performed By: #### C MP ####[facility] Licoulpset8737 [place] [address]Dr. Charlee Pearson Globulin (S) [Mass/Vol] 4.8 g/dL Normal [facility] Comment on above: Performed By: #### C MP ####[facility] Etfpoxhoee3476 [place] [address]Dr. Charlee Pearson Glucose [Mass/Vol] 106 mg/dL Normal 74-106 [facility] Comment on above: Performed By: #### C MP ####[facility] Lxupmxwibc8461 [place] [address]Dr. Charlee Pearson Potassium [Moles/Vol] 4.3 mmol/L Normal 3.5-5.1 [facility] Comment on above: Performed By: #### C MP ####[facility] [address]ekeap[address] [place], [place] [address]Dr. Charlee Pearson Protein [Mass/Vol] 8.7 g/dL Critically high 6.4-8.2 [facility] Comment on above: Performed By: #### C MP ####[facility] Uvrsseqfmb6179 [place] [address]Dr. Charlee Pearson Sodium [Moles/Vol] 130 mmol/L Critically low 136-145 [facility] Comment on above: Performed By: #### C MP ####[facility] Yskhxylfsi6120 [place] [address]Dr. Charlee Pearson Urea nitrogen [Mass/Vol] 9.0 mg/dL Normal 7.0-18.0 [facility] Comment on above: Performed By: #### C MP ####[facility] Zkvqomipuo2686 [place], [place] [address]Mk. Charlee Pearson Urea nitrogen/Creatinine [Mass ratio] 12.2 mg/mg Normal [facility] Comment on above: Performed By: #### C MP ####[facility] Yvcylngbws2072 [place], [place] [address]Gh. Charlee Pearson XR CHEST 1 Von 03-18-2022 XR CHEST 1 V Normal [facility] Vital Signs Date Time Vital Sign Value Performing Clinician Facility 08-15-2023 14:15-0500 Body height 157.48 cm Allyssa Moreno Other [facility] Other 08-15-2023 14:15-0500 Body mass index (BMI) [Ratio] 21.07 kg/m2 Allyssa Martellcastillo Other [facility] Other 08-15-2023 14:15-0500 Body temperature 97 [degF] Allyssa Martellcastillo Other [facility] Other 08-15-2023 14:15-0500 Body weight 52.25 kg Allyssa Moreno Other [facility] Other 08-15-2023 14:15-0500 Diastolic blood pressure 80 mm[Hg] Allyssa Martellcastillo Other [facility] Other 08-15-2023 14:15-0500 Respiratory rate 20 /min Allyssa Martellcastillo Other [facility] Other 08-15-2023 14:15-0500 SaO2% (BldA) [Mass fraction] Allyssa Martellcastillo Other [facility] Other 08-15-2023 14:15-0500 Systolic blood pressure 122 mm[Hg] Allyssa Josh Other [facility] Other 08-15-2022 16:30-0500 Body height 157.48 cm Allyssa Chaban Other [facility] Other 08-15-2022 16:30-0500 Body mass index (BMI) [Ratio] 19.31 kg/m2 Jdal Chaban Other [facility] Other 08-15-2022 16:30-0500 Body temperature 97 [degF] Jdal Chaban Other [facility] Other 08-15-2022 16:30-0500 Body weight 47.9 kg Jdal Chaban Other [facility] Other 08-15-2022 16:30-0500 Diastolic blood pressure 84 mm[Hg] Jdal Chaban Other [facility] Other 08-15-2022 16:30-0500 Respiratory rate 20 /min Jdal Chaban Other [facility] Other 08-15-2022 16:30-0500 SaO2% (BldA) [Mass fraction] Jdal Chaban Other [facility] Other 08-15-2022 16:30-0500 Systolic blood pressure 128 mm[Hg] Jdal Chaban Other [facility] Other 05-10-2022 16:30-0400 Body height 157.48 cm Jdal Chaban Other [facility] Other 05-10-2022 16:30-0400 Body mass index (BMI) [Ratio] 19.31 kg/m2 Jdal Chaban Other [facility] Other 05-10-2022 16:30-0400 Body temperature 96.9 [degF] Allyssa Martellban Other [facility] Other 05-10-2022 16:30-0400 Body weight 47.9 kg Allyssa Martellban Other [facility] Other 05-10-2022 16:30-0400 Diastolic blood pressure 72 mm[Hg] Allyssa Martellban Other [facility] Other 05-10-2022 16:30-0400 Respiratory rate 20 /min Allyssa Martellban Other [facility] Other 05-10-2022 16:30-0400 SaO2% (BldA) [Mass fraction] Allyssa Martellban Other [facility] Other 05-10-2022 16:30-0400 Systolic blood pressure 100 mm[Hg] Allyssa Martellban Other [facility] Other 01-02-2022 11:30-0400 Body height 157.48 cm Allyssa Martellban Other [facility] Other 01-02-2022 11:30-0400 Body mass index (BMI) [Ratio] 21.4 kg/m2 Allyssa Martellban Other [facility] Other 01-02-2022 11:30-0400 Body temperature 97 [degF] Allyssa Martellban Other [facility] Other 01-02-2022 11:30-0400 Body weight 53.07 kg Allyssa Martellban Other [facility] Other 01-02-2022 11:30-0400 Diastolic blood pressure 88 mm[Hg] Allyssa Martellcastillo Other [facility] Other 01-02-2022 11:30-0400 Respiratory rate 20 /min Allyssa Martellcastillo Other [facility] Other 01-02-2022 11:30-0400 SaO2% (BldA) [Mass fraction] 94 % Allyssa Moreno Other [facility] Other 01-02-2022 11:30-0400 Systolic blood pressure 124 mm[Hg] Allyssa Martellcastillo Other [facility] Other Encounters Encounter Date Encounter Type Care Provider Facility Start: 06-03-2024 End: 06-03-2024 ambulatory [facility] Start: 04-28-2024 End: 04-28-2024 ambulatory [facility] Start: 04-03-2024 End: 04-03-2024 ambulatory B LOPEZ Not Available Start: 02-20-2024 End: 02-20-2024 ambulatory B LOPEZ Not Available Start: 11-21-2023 End: 11-21-2023 ambulatory B LOPEZ Not Available Start: 09-20-2023 End: 09-20-2023 ambulatory B LOPEZ Not Available Start: 08-15-2023 End: 08-15-2023 ambulatory Allyssa Martellcastillo Other [facility] Other Start: 08-15-2023 Office outpatient vi sit 15 minutes Jdanthony Josh [facility] Start: 02-07-2023 ambulatory DANIEL LOPEZ Facility:H 1 Start: 01-22-2023 End: 01-23-2023 ambulatory DANIEL LOPEZ Facility:[facility] Start: 12-28-2022 End: 12-29-2022 ambulatory LOPEZ Facility:[facility] Start: 08-15-2022 End: 08-15-2022 ambulatory Allyssa Moreno Other [facility] Other Start: 08-15-2022 Office outpatient vi sit 25 minutes Kamanthony Martellban [facility] Start: 08-14-2022 End: 08-15-2022 ambulatory LOPEZ Facility:[facility] Start: 05-10-2022 End: 05-10-2022 ambulatory Kamanthony Moreno Other [facility] Other Start: 05-10-2022 Office outpatient vi sit 25 minutes Kamanthony Martellban [facility] Start: 05-01-2022 End: 05-02-2022 ambulatory DANIEL LOPEZ Facility:[facility] Start: 04-17-2022 End: 04-18-2022 Evaluation and management of inpatient DANIEL LOPEZ Facility:[facility] Start: 03-30-2022 ambulatory DANIEL LOPEZ Facility:H 1 Start: 03-19-2022 End: 03-30-2022 Evaluation and management of inpatient DR ISABELLA LEVY . Facility:[facility] Start: 01-02-2022 End: 01-02-2022 ambulatory Allyssa Moreno Other [facility] Other Start: 01-02-2022 Office outpatient ne w [...] Immunization Date Immunization Notes Care Provider Fa cility 08-25-2021 COVID-19 Vaccine Pfi zer - Documentation Purposes Only Kamanthony Moreno Other [facility] Other 01-03-2021 COVID-19 Vaccine Pfi zer - Documentation Purposes Only Kamanthony Moreno Other [facility] Other 12-11-2020 COVID-19 Vaccine Pfi zer - Documentation Purposes Only Allyssa Moreno Other [facility] Other Payers Date Payer Category Payer Medicare [id number] 2. [id number] 1958 Self-pay [id number] 1958 Unknown [id number] 1955 Unknown [id number] 2.16.84 [id number] 1955 Unknown [id number] 2.16.84 0.1.679633.3.579.2.593 1955 Unknown [id number] 2.16.84 0.1.191016.3.579.2.593 1955 Unknown [id number] 2.16.84 0.1.122781.3.579.2.593 1955 Unknown [id number] 2.16.84 0.1.656433.3.579.2.593 1955 Unknown [id number] 2.16.84 0.1.801635.3.579.2.593 1955 Unknown [id number] 2.16.84 0.1.526958.3.579.2.593 1955 Unknown [id number] 2.16.84 0.1.649970.3.579.2.593 1955 Unknown [id number] 2.16.84 0.1.357254.3.579.2.1259 1955 Unknown [id number] 2.16.84 0.1.834783.3.579.2.1259 1955 Unknown [id number] 2.16.84 0.1.146698.3.579.2.1259 1955 Unknown [id number] 2.16.840 .1.570318.3.579.2.1259 1955 Unknown [id number] 2.16.8 40.1.169145.3.579.2.1244 1955 Unknown [id number] 2.16.8 40.1.669198.3.579.2.1246 Social History Date Type Detail Facility Sex Assigned At [facility] Other Evaluation note 08-15-2023 Note Date & [...] anytime Jul, Recurrent pneumonia (ICD-10 - J18.9) [facility] Other Evaluation note 08-15-2022 Note Date & [...] History of recent pneumonia (ICD-10 - Z87.01) [facility] Other Evaluation note 05-10-2022 Note Date & Type Note Facility 05-10-2022 Evaluation note Encounter Date Diagnosis Assessment Notes Apr, Very severe chronic obstructive pulmonary disease (ICD-10 - J44.9) Apr, Lung nodules (ICD-10 - R91.8) CT chest in 3 months before next visit Apr, History of recent pneumonia (ICD-10 - Z87.01) [facility] Other Evaluation note 01-02-2022 Note Date & Type Note Facility 01-02-2022 Evaluation note Encounter Date Diagnosis Assessment Notes Dec, Lung nodules (ICD-10 - R91.8) Dec, 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 Hospitalization History breathing issues, severa l times [id number] Hospitalization History COPD [facility] Other History general Narrative - Reported Note Date & Type Note Facility History general Narrative - Reported Type Medical History copd Medical History hypothyroid Medical History RA Medical History sleep apnea Surgical History hysterectomy abdominal Surgical History C section Surgical History lumpectomy, left breast Surgical History right thum fused Surgical History growth removed from right heel. Hospitalization History breathing issues, severa l times [id number] Hospitalization History COPD Hospitalization History Colitis /Pneumonia [facility] 02/2022 [facility] Other Summary Purpose Family History No Family History Records FoundNo Family History Records FoundNo Family History Records FoundNo Family History Records Found Advance Directives No Advanced Directives Records FoundNo Advanced Directives Records FoundNo Advanced Directives Records FoundNo Advanced Directives Records Found Additional Source Comments REASON FOR VISIT (unrecogniz ed section and content) Ref: Dr. Daniel Lopez- Pulmo nary Nodule and Rheumatoid lung disease3 month Follow up3 mo f/u COPD, Lung Nodule, Hx of Pneumonia6 mo f/u Recurrent Pneumonia, Pulm Nodules, COPD INFORMATION SOURCE (unrecogn ized section and content) DATE CREATED AUTHOR 02/07/2023 [facility] DATE CREATED AUTHOR AUTHOR'S ORGANIZ ATION 04/09/2024 [facility] EPIC DATE CREATED AUTHOR AUTHOR'S ORGANIZ ATION 04/30/[address] [facility] DATE CREATED AUTHOR AUTHOR'S ORGANIZ ATION 06/05/2024 [facility] FOR RECORDS PERTAINING TO PATIENTS WHO ARE [...] BE BASED ON THE PRIMARY CLINICAL RECORDS. [facility] [employer] provides no warranty or guarantee of the accuracy or completeness of information in this document.
--- NOTE | 2024-06-06 18:38 | CT_ITS ---
[address] [address] Patient Name: LILLIAM PACHECO MRN: [id number] date: 1955 Sex: F Assigned Patient Location: ER Current Patient Location: Accession/Order Number: [id number] Exam Date: 06/06/2024 19:17 Report Date: 06/06/2024 20:15 At the request of: NEREIDA CARDOSO Procedure: CT abdomen pelvis wo con EXAM: CT scan of the abdomen and pelvis without contrast. Dose reduction technique used: Automated exposure control and/or adjustment of the mA and/or kV according to patient size and/or use of iterative reconstruction technique. REASON FOR EXAM: sbo ? abd pain and constipation COMPARISON: CT scan dated 04/15/2022 FINDINGS: Wall thickening of the sigmoid colon. Diffuse distention of the colon leading up to the thickened segment of the sigmoid colon. Small amount of free fluid in the pelvis. L2 superior endplate compression fracture with mild height loss. L1 inferior endplate compression fracture with mild height loss. Subcutaneous high attenuation and intermediate attenuation fluid collection overlying the lateral left hip. Small esophageal hiatal hernia. Colonic diverticulosis. Lumbar scoliosis. Old left inferior pubic ramus fracture. Emphysematous changes in both lungs. No renal, ureteral or bladder calculi. No hydronephrosis. No evidence of appendicitis. No free intraperitoneal air. No dilated or thickened loops of small bowel. Liver, pancreas, spleen, bilateral kidneys, and bilateral adrenal glands are otherwise unremarkable within the limitations of noncontrast CT. No lymphadenopathy in the abdomen or pelvis. Remainder unremarkable. CT/CT abdomen pelvis wo con IMPRESSION: 1. Probable colonic obstruction the level of the sigmoid colon which could be secondary to colitis, diverticulitis, colon cancer or benign stricture. Recommend follow-up with gastroenterology. 2. Age-indeterminate L1 and L2 compression fractures. 3. Hematoma in the subcutaneous fat overlying the left hip laterally. Electronically authenticated by: RYAN GARCIA Date: 06/06/2024 20:15
--- NOTE | 2024-06-06 18:39 | ED.ABDPAIN1 ---
HPI - Abdominal Pain General Chief Complaint: Abdominal Pain Stated Complaint: CONSTIPATION Time Seen by Provider: 06/06/24 18:35 Source: patient Mode of arrival: ambulance Limitations: no limitations History of Present Illness HPI narrative: The patient is a 69-year-old female is coming to us with abdominal pain mostly upper abdomen associated with some nausea over the last 2 days in addition to decreased p.o. intake and constipation. The patient denies any fever or chills. He mentioned that she have no appetite to eat and she did had a bowel movement before arrival but that did not help with the pain The patient denies any other complaints She mentioned that she had 2 C-sections had abdominal surgeries Related Data Home Medications ?Medication ?Instructions ?Recorded ?Confirmed albuterol sulfate 90 mcg/actuation 2 inh inhalation Q4H PRN shortness 09/10/23 06/06/24 aerosol inhaler of breath or wheezing clonazepam 0.5 mg tablet 0.5 mg PO Q8H PRN anxiety 09/10/23 06/06/24 escitalopram oxalate 20 mg tablet 20 mg PO DAILY 09/10/23 06/06/24 levothyroxine 88 mcg tablet 88 mcg PO DAILY 09/10/23 06/06/24 metoprolol succinate 25 mg 25 mg PO DAILY 09/10/23 06/06/24 tablet,extended release 24 hr apixaban 5 mg tablet (Eliquis) 5 mg PO Q12H 06/06/24 06/06/24 magnesium oxide 400 mg (241.3 mg 400 mg PO DAILY 06/06/24 06/06/24 magnesium) tablet tramadol 50 mg tablet 50 mg PO Q8H 06/06/24 06/06/24 Previous Rx's ?Medication ?Instructions ?Recorded albuterol sulfate 2.5 mg/3 mL 2.5 mg (3 mL) inhalation Q4H PRN 09/12/23 (0.083 %) solution for nebulization shortness of breath or wheezing #90 mL tiotropium bromide 2.5 2 inh inhalation DAILY 30 days #4 09/12/23 mcg/actuation mist for inhalation grams (Spiriva Respimat) Allergies Allergy/AdvReac Type Severity Reaction Status Date / Time No Known Drug Allergies Allergy Verified 06/06/24 18:28 Review of Systems ROS Status of ROS 10 or more systems reviewed and unremarkable except as noted in history and below [facility] Medical History (Updated 06/06/24 @ 18:40 by Kandis South MD) Tobacco dependence ?F17.200 - Nicotine dependence, unspecified, uncomplicated (ICD-10) Depression with anxiety ?F41.8 - Other specified anxiety disorders (ICD-10) COPD (chronic obstructive pulmonary disease) ?J44.9 - Chronic obstructive pulmonary disease, unspecified (ICD-10) Hypertension ?I10 - Essential (primary) hypertension (ICD-10) Hypothyroid ?E03.9 - Hypothyroidism, unspecified (ICD-10) Social History Highest level of school completed/degree received: some college, no degree Little interest or pleasure in doing things: not at all Feeling down, depressed, or hopeless: not at all Exam Narrative Exam Narrative: Nurses notes and vital signs reviewed and patient is not hypoxic. General: Well-appearing and in no apparent distress. Skin: Warm, dry, no pallor noted. No rash. Head: Normocephalic, atraumatic. Neck: Supple, non-tender. Eye: Pupils are equal, round and EOMI. No scleral icterus. Ears, Nose, Mouth, and Throat: TM are clear, no nasal mucosal hypertrophy. Oral mucosa is moist, no posterior oropharynx erythema, uvula is mid-line Cardiovascular: Regular Rate and Rhythm without murmur, gallop or rub. Respiratory: No accessory muscle use or respiratory distress. Lungs are clear to auscultation, no wheezing, rales or rhonchi Chest Wall: no tenderness Back: No midline thoracic or lumbar vertebral tenderness. No CVA tenderness Musculoskeletal: normal ROM, no calf or popliteal tenderness, no lower extremity edema/swelling GI: Abdomen distended with no rigidity and there is tenderness upon palpation of the periumbilical area Neurological: A&O x4. No cranial nerve dysfunction observed. No truncal ataxia. Moves all extremities. Sensation intact. Psychiatric: Cooperative and interactive. Normal mood and affect. Constitutional Vital Signs, click to edit/add: Last Vital Signs Temp 98.4 F 06/06/24 18:28 Pulse 104 H 06/06/24 18:28 Resp 22 H 06/06/24 18:28 BP 152/92 H 06/06/24 18:28 Pulse Ox 94 L 06/06/24 18:28 O2 Del Method Nasal Cannula 06/06/24 18:28 O2 Flow Rate 4 06/06/24 18:28 Course Vital Signs Vital signs: Vital Signs Temperature 98.4 F 06/06/24 18:28 Pulse Rate 104 H 06/06/24 18:28 Respiratory Rate 22 H 06/06/24 18:28 Blood Pressure 152/92 H 06/06/24 18:28 Pulse Oximetry 94 L 06/06/24 18:28 Oxygen Delivery Method Nasal Cannula 06/06/24 18:28 Oxygen Delivery Flow Rate 4 06/06/24 18:28 Temperature 98.4 F 06/06/24 18:28 Pulse Rate 104 H 06/06/24 18:28 Respiratory Rate 22 H 06/06/24 18:28 Blood Pressure 152/92 H 06/06/24 18:28 Pulse Oximetry 94 L 06/06/24 18:28 Oxygen Delivery Method Nasal Cannula 06/06/24 18:28 Oxygen Delivery Flow Rate 4 06/06/24 18:28 MDM - Abdominal Pain MDM Narrative Medical decision making narrative: CBC chemistry as well as CT scan without contrast ordered and the patient care will be transferred to Dr. Chaparro for further evaluation Discharge Plan Discharge Patient Disposition: Still a Patient
[2024-06-06 19:00] LABS: Basophils Percent Auto 0.2 % (0.2-2.0); Eosinophils Percent Auto 0.1 % (0.9-7.0); Hematocrit 33.1 % (36.0-48.0); Hemoglobin 11.3 g/dL (12.0-16.0); Immature Granulocytes Abs Auto 0.02 10^3/uL (0.00-0.03); Immature Granulocytes Pct Auto 0.2 % (0.0-0.5); Lymphocytes Absolute Auto 1.2 10^3/uL (1.2-3.8); Lymphocytes Percent Auto 14.3 % (20.5-60.0); Mean Corpuscular HGB Conc 34.1 g/dL (29.9-35.2); Mean Corpuscular Hemoglobin 31.7 pg (26.7-34.0); Mean Platelet Volume 8.7 fL (9.5-13.5); Monocytes Absolute Auto 0.8 10^3/uL (0.3-0.8); Monocytes Percent Auto 9.8 % (1.7-12.0); Neutrophils Absolute Auto 6.1 10^3/uL (1.4-6.5); Neutrophils Percent Auto 75.4 % (43.0-75.0); Platelet Count 383 10^3/uL (150-450); Red Blood Count 3.56 10^6/uL (4.20-5.40); Red Cell Distribution Width 15.5 % (11.0-15.0); White Blood Count 8.1 10^3/uL (4.0-11.0)
[2024-06-06 19:13] LABS: Alanine Aminotransferase 19 U/L (14-59); Albumin Level 3.6 g/dL (3.4-5.0); Alkaline Phosphatase 104 U/L (46-116); Anion Gap 10.2; Aspartate Amino Transferase 23 U/L (15-37); Bilirubin Total 0.7 mg/dL (0.2-1.0); Calcium 8.7 mg/dL (8.5-10.1); Carbon Dioxide 30.8 mmol/L (21.0-32.0); Chloride 93 mmol/L (98-107); Estimated GFR (African America >60 (>=60); Estimated GFR (Non-African Ame >60 (>=60); Globulin 3.7 g/dL; Glucose 127 mg/dL (74-106); Sodium 131 mmol/L (136-145); Total Protein 7.3 g/dL (6.4-8.2)
[2024-06-06 20:26] VITALS: BP 139/101; PULSE 91; O2SAT 97
[2024-06-06 20:27] VITALS: O2SAT 97
--- NOTE | 2024-06-06 20:27 | PC.NURSE ---
Gets very dyspnic with activity.
[2024-06-06 22:17] VITALS: BP 168/110; PULSE 92; O2SAT 97
[2024-06-06] MEDS: MORPHINE SULFATE 4 MG/ML VIAL IV (22:21)
--- NOTE | 2024-06-06 22:41 | ED_ITS ---
HPI HPI - General Adult General Chief complaint: Abdominal Pain Stated complaint: CONSTIPATION Time Seen by Provider: 06/06/24 18:35 Source: patient Mode of arrival: ambulance Limitations: no limitations History of Present Illness HPI narrative: 69-year-old female initially seen by Dr. South and signed out to me after discussing the case with her thoroughly. Please see her full history and physical exam. Related Data Home Medications ?Medication ?Instructions ?Recorded ?Confirmed albuterol sulfate 90 mcg/actuation 2 inh inhalation Q4H PRN shortness 09/10/23 06/06/24 aerosol inhaler of breath or wheezing clonazepam 0.5 mg tablet 0.5 mg PO Q8H PRN anxiety 09/10/23 06/06/24 escitalopram oxalate 20 mg tablet 20 mg PO DAILY 09/10/23 06/06/24 levothyroxine 88 mcg tablet 88 mcg PO DAILY 09/10/23 06/06/24 metoprolol succinate 25 mg 25 mg PO DAILY 09/10/23 06/06/24 tablet,extended release 24 hr apixaban 5 mg tablet (Eliquis) 5 mg PO Q12H 06/06/24 06/06/24 magnesium oxide 400 mg (241.3 mg 400 mg PO DAILY 06/06/24 06/06/24 magnesium) tablet tramadol 50 mg tablet 50 mg PO Q8H 06/06/24 06/06/24 Previous Rx's ?Medication ?Instructions ?Recorded albuterol sulfate 2.5 mg/3 mL 2.5 mg (3 mL) inhalation Q4H PRN 09/12/23 (0.083 %) solution for nebulization shortness of breath or wheezing #90 mL tiotropium bromide 2.5 2 inh inhalation DAILY 30 days #4 09/12/23 mcg/actuation mist for inhalation grams (Spiriva Respimat) Allergies Allergy/AdvReac Type Severity Reaction Status Date / Time No Known Drug Allergies Allergy Verified 06/06/24 18:28 Opioid HPI Opioid Management Most Recent Opioid Data: Last Pain Scale 8 06/06/24 22:21 Last ED Pain Assessment 06/06/24 20:26 [facility] Medical History (Updated 06/06/24 @ 22:41 by Trent Chaparro MD) Tobacco dependence ?F17.200 - Nicotine dependence, unspecified, uncomplicated (ICD-10) Depression with anxiety ?F41.8 - Other specified anxiety disorders (ICD-10) COPD (chronic obstructive pulmonary disease) ?J44.9 - Chronic obstructive pulmonary disease, unspecified (ICD-10) Hypertension ?I10 - Essential (primary) hypertension (ICD-10) Hypothyroid ?E03.9 - Hypothyroidism, unspecified (ICD-10) Social History Highest level of school completed/degree received: some college, no degree Little interest or pleasure in doing things: not at all Feeling down, depressed, or hopeless: not at all Exam Constitutional Vital Signs, click to edit/add: Last Vital Signs Temp 98.4 F 06/06/24 18:28 Pulse 92 H 06/06/24 22:17 Resp 20 06/06/24 22:17 BP 168/110 H 06/06/24 22:17 Pulse Ox 97 06/06/24 22:17 O2 Del Method Room Air 06/06/24 22:17 O2 Flow Rate 4 06/06/24 20:27 Course Vital Signs Vital signs: Vital Signs Temperature 98.4 F 06/06/24 18:28 Pulse Rate 104 H 06/06/24 18:28 Respiratory Rate 22 H 06/06/24 18:28 Blood Pressure 152/92 H 06/06/24 18:28 Pulse Oximetry 94 L 06/06/24 18:28 Oxygen Delivery Method Nasal Cannula 06/06/24 18:28 Oxygen Delivery Flow Rate 4 06/06/24 18:28 Temperature 98.4 F 06/06/24 18:28 Pulse Rate 92 H 06/06/24 22:17 Respiratory Rate 20 06/06/24 22:17 Blood Pressure 168/110 H 06/06/24 22:17 Pulse Oximetry 97 06/06/24 22:17 Oxygen Delivery Method Room Air 06/06/24 22:17 Oxygen Delivery Flow Rate 4 06/06/24 20:27 Medical Decision Making MDM Narrative Medical decision making narrative: CT suggests colonic obstruction. The patient reports that she has been diagnosed with a rectovaginal fistula and surgery was not performed on it. She had an abnormal Cologuard about 3 weeks ago and has not had her follow-up colonoscopy. She has never had a colonoscopy. Case discussed initially with Dr. Soria who recommends transfer to higher level of care. She is requesting transfer to [facility] and I have spoken to Dr. Lance who accepts the patient. The patient is agreeable and stable for transfer. Differential Diagnosis Differential Diagnosis: Small bowel obstruction, constipation, colonic obstruction Lab Data Lab results reviewed: Yes I reviewed the patient's lab results Labs: Lab Results 06/06/24 Range/Units 18:47 WBC 8.1 (4.0-11.0) 10^3/uL RBC 3.56 L (4.20-5.40) 10^6/uL Hgb 11.3 L (12.0-16.0) g/dL Hct 33.1 L (36.0-48.0) % MCV 93.0 (81.0-99.0) fL MCH 31.7 (26.7-34.0) pg MCHC 34.1 (29.9-35.2) g/dL RDW 15.5 H (11.0-15.0) % Plt Count 383 (150-450) 10^3/uL MPV 8.7 L (9.5-13.5) fL Neut % (Auto) 75.4 H (43.0-75.0) % Lymph % (Auto) 14.3 L (20.5-60.0) % Hardin % (Auto) 9.8 (1.7-12.0) % Eos % (Auto) 0.1 L (0.9-7.0) % Baso % (Auto) 0.2 (0.2-2.0) % Neut # (Auto) 6.1 (1.4-6.5) 10^3/uL Lymph # (Auto) 1.2 (1.2-3.8) 10^3/uL Hardin # (Auto) 0.8 (0.3-0.8) 10^3/uL Eos # (Auto) 0.0 (0.0-0.7) 10^3/uL Baso # (Auto) 0.0 (0.0-0.1) 10^3/uL Abs Immat Gran (auto) 0.02 (0.00-0.03) 10^3/uL Imm/Tot Granulo (auto) 0.2 (0.0-0.5) % Sodium 131 L (136-145) mmol/L Potassium 3.0 L (3.5-5.1) mmol/L Chloride 93 L (98-107) mmol/L Carbon Dioxide 30.8 (21.0-32.0) mmol/L Anion Gap 10.2 BUN 3.0 L (7.0-18.0) mg/dL Creatinine 0.50 L (0.55-1.02) mg/dL Est GFR ( Amer) >60 (>=60) Est GFR (Non-Af Amer) >60 (>=60) BUN/Creatinine Ratio 6.0 Glucose 127 H (74-106) mg/dL Calcium 8.7 (8.5-10.1) mg/dL Total Bilirubin 0.7 (0.2-1.0) mg/dL AST 23 (15-37) U/L ALT 19 (14-59) U/L Alkaline Phosphatase 104 (46-116) U/L Total Protein 7.3 (6.4-8.2) g/dL Albumin 3.6 (3.4-5.0) g/dL Globulin 3.7 g/dL Albumin/Globulin Ratio 1.[address] scan - abdomen: Radiologist's impression: ITS Impressions Abdomen/Pelvis CT 06/06/24 18:38 IMPRESSION: 1. Probable colonic obstruction the level of the sigmoid colon which could be secondary to colitis, diverticulitis, colon cancer or benign stricture. Recommend follow-up with gastroenterology. 2. Age-indeterminate L1 and L2 compression fractures. 3. Hematoma in the subcutaneous fat overlying the left hip laterally. Electronically authenticated by: RYAN GARCIA Date: 06/06/2024 20:15 Discharge Plan Discharge Chief Complaint: Abdominal Pain Clinical Impression: Colon obstruction Patient Disposition: [facility] Time of Disposition Decision: 22:41 Discharge Location: [facility] Condition: Fair Mode of Transportation: EMS
[2024-06-06 23:20] VITALS: BP 150/98; PULSE 88; O2SAT 98
[2024-06-07 01:26] VITALS: BP 158/86; PULSE 85; O2SAT 96
[2024-06-07] MEDS: MORPHINE SULFATE 4 MG/ML VIAL IV (01:46)
[2024-06-07 05:46] VITALS: BP 130/88; PULSE 89; O2SAT 95
[2024-06-07] MEDS: IPRATROPIUM/ALBUTEROL SULFATE 3 ML AMPUL.NEB IH (07:28)
[2024-06-07 07:29] VITALS: PULSE 83; O2SAT 96
[2024-06-07] MEDS: LEVOTHYROXINE SODIUM 88 MCG TABLET PO (07:48)
[2024-06-07] MEDS: METOPROLOL TARTRATE 25 MG TABLET PO (07:48)
[2024-06-07] MEDS: TRAMADOL HCL 50 MG TABLET PO (07:48)
[2024-06-07 07:54] VITALS: BP 132/97
[2024-06-07] MEDS: POTASSIUM CHLORIDE IN WATER 10 MEQ/100 ML PREMIX 100 MEQ IV (12:22)
[2024-06-07 15:25] VITALS: BP 100/67; PULSE 74; O2SAT 99
== END 2024-06-07 15:36 | disposition short-term general hospital (02) ==
PROVIDERS: Emergency Medicine; Emergency Provider Emergency Medicine Emergency Medical Services; PCP Internal Medicine
DX: K56.609 Unspecified intestinal obstruction, unspecified as to partial versus complete obstruction (principal)
CPT/HCPCS: 36415; 74176; 80053; 85025; 94640; 96365; 96366; 96375; 96376; 99285; J2270; J3480

== ENCOUNTER 2025-04-17 13:07 | Outpatient (OUT) | payer MEDICARE, OTHER, SELFPAY ==
--- NOTE | 2025-04-17 13:11 | CT_ITS ---
The [address] [address] Patient Name: LILLIAM PACHECO MRN: [id number] date: 1955 Sex: F Assigned Patient Location: CT Current Patient Location: CT Accession/Order Number: [id number] Exam Date: 04/17/2025 15:07 Report Date: 04/17/2025 15:27 At the request of: GUSTAVO OREILLY Procedure: CT lung screening low-dose CT CHEST WITHOUT CONTRAST, LOW DOSE SCREENING: CLINICAL DATA: A 69-year old former smoker, COMPARISON: CT chest 08/07/2023 TECHNIQUE: Noncontrast axial CT scan images of the chest were obtained under the low dose screening CT protocol. Coronal and sagittal reconstructed images were also submitted. FINDINGS: Mediastinum : Suboptimal evaluation due to low-dose technique. Thoracic aorta appears normal in caliber. Pulmonary trunk appears nondilated. No pericardial effusion. No lymphadenopathy. The esophagus is grossly unremarkable. Lungs: No focal consolidation, pneumothorax or pleural effusion. Trachea and distal airways appear patent. Debris within the trachea. There is emphysematous changes. Diffuse bronchial wall thickening. Scattered lung scarring. No suspicious noncalcified pulmonary nodule or mass. Upper abdomen: No acute findings. Bony thorax and chest wall: Soft tissues surrounding the chest wall demonstrate no acute findings. Osseous structures demonstrate degenerative change. CT/CT lung screening low-dose IMPRESSION: NO SUSPICIOUS PULMONARY NODULE OR MASS. LUNG - RADS Version 1.0 Assessment: Category 1, Negative (No nodules and definitely benign nodules). Management: Continue annual lung screening with LDCT in 12 months. Impression dictated by: Bernard Witt Jr., D.O. 04/17/2025 3:27 PM Dictation Location: [place] [address] Electronically authenticated by: [id number] Y Date: 04/17/2025 15:27
--- NOTE | 2025-04-17 13:45 | MM_ITS ---
Patient Name: LILLIAM PACHECO MR#: [id number] : 1955 Exam Date: 04/17/2025 Ordering Doctor: DR GUSTAVO AKHTAR RADIOLOGY REPORT PROCEDURE: MM TOMOSYNTHESIS SCREENING BI COMPARISON: MM TOMOSYNTHESIS SCREENING BI, 07/04/2023. MG MAMM SCREEN 3D DEYSI CAD, 06/01/2021. MG MAMM SCREEN DEYSI W CAD, 02/24/2019. MAMMO DEYSI SCREEN, 12/05/2001. INDICATIONS: screening for malignant neoplasm of breast Calculator Name NCI Breast Cancer Risk Assessment Tool 5 Year Breast Cancer Risk 4.10% Lifetime Breast Cancer Risk 12.80% Personal Breast Cancer No Personal Ovarian Cancer No Treatments None Family Cancers Mother with breast cancer at age ~30; Mother with lung cancer at age 61; Brother with sm. cell lung cancer at age 39; Brother with lung cancer at age 53; Brother with liver cancer at age 49; Grandmother-paternal with colon cancer at age ~60; Uncle-maternal with lung cancer at age ~50; Nephew with lung cancer at age 47. LOCATION: [facility] BREAST COMPOSITION: The breasts are heterogeneously dense, which may obscure small masses. FINDINGS: RIGHT BREAST: No significant suspicious finding. LEFT BREAST: No significant suspicious finding. DIAGNOSTIC CATEGORY 1--NEGATIVE. RECOMMENDATIONS: ROUTINE MAMMOGRAM AND CLINICAL EVALUATION IN 12 MONTHS. PLEASE NOTE: A NORMAL MAMMOGRAM DOES NOT EXCLUDE THE POSSIBILITY OF BREAST CANCER. A CLINICALLY SUSPICIOUS PALPABLE LUMP SHOULD BE BIOPSIED. Dictated by: Albino Eagle MD on 04/17/2025 at 15:18 Approved by: Albino Eagle MD on 04/17/2025 at 15:22
== END 2025-04-17 13:08 | disposition home or self-care (01) ==
LOC: CT 13:07
PROVIDERS: PCP Internal Medicine; Visit Provider Physician Assistant
DX: Z87.891 Personal history of nicotine dependence (principal); J44.9 Chronic obstructive pulmonary disease, unspecified; Z12.31 Encounter for screening mammogram for malignant neoplasm of breast; Z80.3 Family history of malignant neoplasm of breast; Z80.1 Family history of malignant neoplasm of trachea, bronchus and lung; Z80.0 Family history of malignant neoplasm of digestive organs; Z80.8 Family history of malignant neoplasm of other organs or systems
CPT/HCPCS: 71271; 77063; 77067

== ENCOUNTER 2025-07-27 12:04 | Emergency (ER) | payer MEDICARE, OTHER, SELFPAY ==
[2025-07-27] VITALS (30 sets, daily range): BP systolic 133–136; BP diastolic 82–93; PULSE 81–96; TEMP 36.4; O2SAT 88–100; BMI 21.5
--- NOTE | 2025-07-27 12:20 | ECG_ITS ---
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 Measurements Intervals Tibbie Rate: 85 P: 72 SD: 184 QRS: 69 QRSD: 70 T: 71 QT: 348 QTc: 390 Interpretive Statements 1100 Sinus rhythm 3434 Septal myocardial infarction, age undetermined 8102 Low QRS voltage in chest leads 9150 abnormal ECG Compared to ECG 09/10/2023 15:58:00 Myocardial infarct finding now present Low QRS voltage now present Electronically Signed On 07-27-2025 12:48:42 EST by DALI LAY M.D.
--- NOTE | 2025-07-27 12:20 | XR_ITS ---
The [place] [id number] Patient Name: LILLIAM PACHECO MRN: [id number] date: 1955 Sex: F Assigned Patient Location: ER Current Patient Location: ED.MAIN Accession/Order Number: [id number] Exam Date: 07/27/2025 12:33 Report Date: 07/27/2025 13:03 At the request of: NEREIDA CARDOSO MD Procedure: XR chest 1V PA CHEST: CLINICAL HISTORY: sob COMPARISON: 09/10/2023 FINDINGS: Unremarkable cardiomediastinal silhouette. There is chronic interstitial opacities both lung base. No focal airspace opacity effusion or pneumothorax. XR/XR chest 1V IMPRESSION: Chronic changes both lung base. Negative acute pleural-parenchymal disease. Impression dictated by: Albino Eagle M.D. 07/27/2025 1:03 PM Dictation Location: [place] [address] Electronically authenticated by: [id number] Y Date: 07/27/2025 13:03
--- OUTSIDE RECORDS SUMMARY | 2025-07-27 12:31 | XMS_ITS | Clinical Summary ---
Author Organization [employer] tem Address [id number] [address] [place] [address] Care Team Providers Care Cryogenic Transport Driver Name Role Phone Daniel Lopez MD Primary Care Provider [phone] Allergies No known active allergies Medications MedicationSigDispense QuantityRefillsLast FilledStart DateEnd DateStatus acetaminophen-codeine (TYLENOL #3) 300-30 mg per tablet Take 1 tablet by mouth as needed.11/17/2021ctive fluticasone propion-salmeteroL (ADVAIR) 250-50 mcg/dose DISKUS INHALE 1 PUFF BY MOUTH 2 TIMES DAILYActive albuterol (PROVENTIL,VENTOLIN) 2.5 mg /3 mL (0.083 %) nebulizer solution USE 1 VIAL VIA HAND HELD NEBULIZER EVERY 4 HOURSActive calcium carbonate/vitamin D3 (CALCIUM+D ORAL) Active escitalopram (LEXAPRO) 20 mg tablet Take 1 tablet by mouth in the morning.Active clonazePAM (KlonoPIN) 0.5 mg tablet Take 0.5 mg by mouth Daily at 0700.09/19/2021ctive levothyroxine (SYNTHROID, LEVOTHROID) 88 MCG tablet 88 mcg.Active metoprolol succinate 25 mg capsule,sprinkle,ER 24hr Take 1 tablet by mouth daily.Active peak flow meter device use before and after inhaler treatment once dailyActive albuterol (PROVENTIL HFA;VENTOLIN HFA) 90 mcg/actuation inhaler Inhale 2 puffs every 4 (four) hours as needed.03/10/2022ctive tiotropium (SPIRIVA WITH HANDIHALER) 18 mcg per inhalation capsule 1 capsule.Active Active Problems No known active problems Family History Medical HistoryRelationNameCommentsLung cancerBrother 1Lung cancerBrother 2Lung cancerBrother 3COPDFatherLung cancerMotherRelationNameStatusCommentsBrother 1 DeceasedBrother 2DeceasedBrother 3DeceasedFatherDeceasedMotherDeceased Social History Tobacco UseTypesPacks/DayYears UsedDateSmoking Tobacco: FormerCigarettesQuit: 04/02/2022mokeless Tobacco: NeverAlcohol UseStandard Drinks/WeekCommentsNot Asked0 (1 standard drink = 0.6 oz pure alcohol)occasioallyComments UnknownSex and Gender InformationValueDate RecordedSex Assigned at BirthNot on fileLegal QpqVhhhyq36/26/2022 2:18 PM EDTGender IdentityNot on fileSexual OrientationNot on file Last Filed Vital Signs Vital SignReadingTime TakenCommentsBlood Pressure--Pulse--Bpyotlzdixb47.4 ??C (97.5 ??F)05/22/2022 3:17 PM EDTRespiratory Rate--Oxygen Saturation--Inhaled Oxygen Concentration--Qinosm52.3 kg (102 lb)05/22/2022 3:17 PM GHAInwzrh890.9 cm (5' 1 )05/22/2022 3:17 PM EDTBody Mass Index19.27005/22/2022 3:17 PM EDT Plan of Treatment Health MaintenanceDue DateLast DoneCommentsDepression Pnvuwmgvy85/25/1968Tobacco Hrbtnxkqj15/25/1968Adult BMI Ltkhplzas11/25/1974Zoster (Shingles) Vaccine (1 of 2)2006Fall Risk Akgbqstmj88/25/2021OVID-19 Vaccine ( - season) 5110/26/2020, 01/03/2021, 12/11/2020Influenza Azmxdjq1805/25/2025 06/07/2020, 06/06/2020, 08/14/2019, Additional history existsRSV ( or age 60+ yrs) (1 - 1-dose 75+ series)1DTaP,Tdap and Td Vaccines (2 - Tdap) Medical Devices Not on file Insurance Care Teams Team MemberRelationshipSpecialtyStart DateEnd Daniel Lopez MD [address] [id number] PCP - GeneralInternal Medicine05/22/22
--- OUTSIDE RECORDS SUMMARY | 2025-07-27 12:32 | XMS_ITS | Clinical Summary ---
Author Organization [facility] Address [address] [place] [address] Phone Care Team Providers Care Chef Teacher Name Role Phone Daniel Lopez MD Primary Care Provider [phone] Allergies Active AllergyReactionsCriticalityNoted DateCommentsBupropion HclItching 04/28/2024 Medications MedicationSigDispense QuantityRefillsLast FilledStart DateEnd DateStatus escitalopram (Lexapro) 20 mg tablet Take 1 tablet (20 mg) by mouth once daily.08/17/2023ctive levothyroxine (Synthroid, Levoxyl) 88 mcg tablet Take 1 tablet (88 mcg) by mouth once daily.Active CALCIUM CARBONATE-VITAMIN D3 ORAL 1 tablet early in the morning..Active albuterol 90 mcg/actuation inhaler Inhale 2 puffs every 4 hours if needed.04/07/2024ctive tiotropium (Spiriva) [address] 1 CAPSULE (18 MCG) INTO INHALER AND INHALE IN THE MORNINGActive metoprolol succinate XL (Toprol-XL) 25 mg 24 hr tablet Take 1 tablet (25 mg) by mouth once daily in the morning. Take before meals. 05/21/2023ctive alendronate (Fosamax) 70 mg tablet Take 1 tablet (70 mg) by mouth once a week.04/03/2024ctive apixaban (Eliquis) 5 mg tablet Take 1 tablet (5 mg) by mouth twice a day.04/03/2024ctive traMADol (Ultram) 50 mg tablet Take 1 tablet (50 mg) by mouth every 8 hours if needed for severe pain (7 - 10). 03/07/2024ctive albuterol 2.5 mg /3 mL (0.083 %) nebulizer solution 3 mL (2.5 mg) every 4 hours if needed.09/20/2023ctive clonazePAM (KlonoPIN) 0.5 mg tablet Take 1 tablet (0.5 mg) by mouth every 8 hours if needed.01/14/2024ctive loratadine (Claritin) 10 mg tablet Take 1 tablet (10 mg) by mouth once daily as needed for allergies.Active oxygen (O2) gas therapy Inhale 1 each continuously. 3 LPMActive oygcnvyq-qnv-dqmv-FA-vit K-lut (Centrum Silver Women) 8 mg iron-400 mcg-50 mcg tablet 1 tablet early in the morning..Active acetaminophen (Tylenol) 500 mg tablet Take 1 tablet (500 mg) by mouth every 6 hours if needed for mild pain (1 - 3). Active Active Problems ProblemNoted DateDiagnosed DateMixed szxdkshwwdpkye41/12/2024MI 22.0-22.9, adult09/04/2024Shortness of jhaclh9309/04/2024Other cxgkxcbaz61/12/2024re- operative adpgtbmob87/12/2024Former cigarette vxvvhj8704/28/2024Encounter to discuss test jwtflkf8504/28/2024bnormal EKG004/28/20248618Kbzllvpicvozzko73/05/2024t high risk for falls04/28/2024Oxygen /05/2024bnormal thyroid function test04/28/20241113Tukcggh86/30/2024anlobular kiphlorja37/06/2023aroxysmal atrial jlspjpfystpi14/13/2023hronic obstructive pulmonary duazcur1303/06/2023cquired aiayubpjjsxxio27/13/2023 Resolved Problems ProblemNoted DateDiagnosed DateResolved DatePure rolqbgremvqhkaeeksmv08/13/2023 09/04/2024 Family History Medical HistoryRelationNameCommentsLiver cancerBrotherLung cancerBrotherCOPD FatherEmphysemaFatherLung cancerMotherRelationNameStatusCommentsBrotherFather Mother Social History Tobacco UseTypesPacks/DayYears UsedDateSmoking Tobacco: FormerCigarettes Smokeless Tobacco: Never Tobacco Cessation:Counseling Given: Not Answered Alcohol UseStandard Drinks/WeekCommentsNot Ixlskyuut38 (1 standard drink = 0.6 oz pure alcohol)CommentsUnknownSex and Gender InformationValueDate RecordedSex Assigned at BirthNot on fileLegal WmyZyyfgu29/26/2022 7:19 AM EST Gender IdentityNot on fileSexual OrientationNot on file Last Filed Vital Signs Vital SignReadingTime TakenCommentsBlood Fgllsztk93/7009/04/2024 1:29 PM EST Linuq433109/04/2024 1:29 PM ESTTemperature--Respiratory Rate--Oxygen Saturation-- Inhaled Oxygen Concentration--Crqhkb83.1 kg (117 lb)09/04/2024 1:29 PM ESTHeight 154.9 cm (5' 1 )09/04/2024 1:29 PM ESTBody Mass Index22.11111/05/2023 1:29 PM EST Plan of Treatment Health MaintenanceDue DateLast DoneCommentsCT Wbmqdcgnkutl1955FIT 1955Lipid Panel1955Medicare Annual Wellness Visit (AWV)1955 Oiqnafchosghs1955TSH Level1955MMR Vaccines (1 of 1 - Standard series)1957Diabetes Cqwkpoiyb43/25/1974Hepatitis C Afayyjugv33/25/1974RSV High Risk: (Elderly (60+) or Population) (1 - Risk 50-74 years 1-dose series)2006Zoster Vaccines (1 of 2)2006Pneumococcal Vaccine (3 of 3 - PCV20 or PCV21)/09/2015, 01/05/20161316Qojzwibtf39/08/202209/04/2021 Bone Density Scan/Influenza Vaccine (#1)/, 06/07/2020, 08/14/2019, Additional history existsCOVID-19 Vaccine (1 - 2024- season)2025FIT-DNA (Cologuard)/TaP/Tdap/Td Vaccines (2 - Tdap)/8373Vgujxqymlfr34, 07/19/2015Colorectal Cancer Omyevelqv64/25/2034HIB VaccinesAged OutNo longer eligible based on patient's age to complete this topicHPV VaccinesAged OutNo longer eligible based on patient's age to complete this topicHepatitis A VaccinesAged OutNo longer eligible based on patient's age to complete this topicHepatitis B VaccinesAged OutNo longer eligible based on patient's age to complete this topicIPV Vaccines Aged OutNo longer eligible based on patient's age to complete this topic Meningococcal VaccineAged OutNo longer eligible based on patient's age to complete this topicRotavirus VaccinesAged OutNo longer eligible based on patient's age to complete this topic Insurance MemberSubscriberPlan / Payer (Effective 2023-Present)Name:Analisa Bajwa Member ID:[id number] Relation to Subscriber:SelfName:Analisa Bajwa Subscriber ID:[id number] Payer ID:[id number] (NAIC) Type:Not on file Address: [address] [place] [phone] Care Teams Team MemberRelationshipSpecialtyStart DateEnd Daniel Lopez MD [address] [facility] [address] [place] [address] PCP - GeneralInternal Medicine04/28/24
--- OUTSIDE RECORDS SUMMARY | 2025-07-27 12:32 | XMS_ITS | Clinical Summary ---
Author Organization [facility] Address [address] [place] [address] Care Team Providers Care Dough Molder Name Role Phone Daniel Lopez MD Primary Care Provider [phone] Allergies Active AllergyReactionsCriticalityNoted AjhaVdplmlnlYgylxymzxJscjald28/05/2024 Medications MedicationSigDispense QuantityRefillsLast FilledStart DateEnd DateStatus acetaminophen (Tylenol) 500 MG tablet Take 500 mg by mouth every 6 (six) hours if needed for mild painActive Calcium Carb-Cholecalciferol (CALTRATE 600+D3 PO) Take by mouth 2 (two) times a dayActive Loratadine (Claritin) 10 MG capsule Take by mouth DailyActive escitalopram (Lexapro) 20 MG tablet Indications:Other specified anxiety disordersTAKE 1 TABLET BY MOUTH EVERY DAY 90 tablet 4Active oxygen (O2) gas Inhale 2 L/min continuously via nasal canulaActive alendronate (Fosamax) 70 MG tablet Indications:Age-related osteoporosis without current pathological fractureTAKE 1 TAB BY MOUTH ON EMPTY STOMACH WITH FULL GLASS OF WATER ONCE A WEEK.DO NOT TAKE ANYTHING ELSEOR LIE DOWN FOR NEXT 30 MINS. 12 tablet 3045Active Multiple Vitamin (multivitamin) tablet Take 1 tablet by mouth DailyActive apixaban (Eliquis) 5 MG tablet Indications:Paroxysmal atrial fibrillation (HCC)TAKE 1 TABLET (5 MG) BY MOUTH IN THE MORNING AND BEFORE BEDTIME 60 tablet 1105Active metoprolol succinate XL (Toprol-XL) 25 MG 24 hr tablet Indications:Longstanding persistent atrial fibrillation (HCC)TAKE 1 TABLET BY MOUTH EVERY DAY IN THE MORNING 90 tablet 5Active Brexpiprazole (Rexulti) 0.25 MG tablet Indications:Moderate episode of recurrent major depressive disorder (HCC)Take 0.25 mg by mouth Daily 90 tablet 5Active tiotropium (Spiriva HandiHaler) 18 MCG inhalation capsule Indications:Acute exacerbation of chronic obstructive airways disease (HCC)Place 1 capsule (18 mcg) into inhaler and inhale in the morning. 100 capsule 5Active albuterol (2.5 MG/3ML) 0.083% nebulizer solution Indications:Panlobular emphysema (HCC)Take 3 mL (2.5 mg) by nebulization every 4 (four) hours if needed for shortness of breath 75 mL 1105Active magnesium oxide (Mag-Ox) 400 MG tablet Indications:HypomagnesemiaTake 1 tablet (400 mg) by mouth Daily 90 tablet /6Active Fluticasone-Salmeterol (Advair Diskus) 250-50 MCG/ACT aerosol powder Indications:Panlobular emphysema (HCC)Inhale 1 puff every 12 (twelve) hours 3 each /6Active albuterol HFA 90 mcg/act inhaler Indications:Panlobular emphysema (HCC)INHALE 2 PUFFS EVERY 4 HOURS NEEDED 18 g 5Active levothyroxine (Synthroid, Levoxyl) 88 MCG tablet Indications:Hypothyroidism, unspecified typeTAKE 1 TABLET BY MOUTH EVERY DAY 100 tablet 5Active clonazePAM (KlonoPIN) 0.5 MG tablet Indications:Generalized anxiety disorderTake 1 tablet (0.5 mg) by mouth every 8 (eight) hours if needed for anxiety 90 tablet 5Active traMADol (Ultram) 50 MG tablet Indications: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)Take 1 tablet (50 mg) by mouth every 8 (eight) hours if needed for severe pain 90 tablet /5Active traMADol (Ultram) 50 MG tablet Indications: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)Take 1 tablet (50 mg) by mouth every 8 (eight) hours if needed for severe pain 90 tablet 51Discontinued(Reorder) Active Problems ProblemNoted DateDiagnosed FqpiWtqjsxdahexaxj55/21/2025Diverticulitis of colon 09/22/2024Mixed inkglnrelrawuu30/12/2024Shortness of veonnm4809/04/2024olostomy in place06/09/2024rimary vuvmfbnsggoa70/14/2024Secondary hypercoagulable state ([facility])06/07/2024hronic hypoxic respiratory failure, on home oxygen therapy 06/07/20246338Bccoavhpgdoo70/14/2024Oxygen knpxohyzd58/05/2024Former cigarette vwkiab8004/28/2024t high risk for falls04/28/2024Essential (hemorrhagic) ulqvsxsjiswhgbn95/29/2024therosclerosis of aorta02/20/20244753Gkxvlxe86/30/2024 Panlobular arfismgbd01/06/2023cquired hwuispwdedxwee04/13/2023hronic obstructive pulmonary disease, cdiwzlcwtma83/13/2023aroxysmal atrial tcavxnrqocep91/13/2023ecreased estrogen level03/06/2023Hepatitis C antibody positive in blood03/06/2023Menopausal and postmenopausal jqoypgul30/13/2023Mixed anxiety and depressive tijclnhq12/13/2023Obstructive sleep apnea syndrome 03/06/2023ulmonary nxunsd9003/06/2023Rheumatoid arthritis with rheumatoid factor of multiple sites without organ or systems jycuogegdtt43/13/2023Rheumatoid lung flszwgn2703/06/2023 Resolved Problems ProblemNoted DateDiagnosed DateResolved DateColovaginal xeycygu2106/07/2024 02/12/2025bnormal x-ray inqqhmszvdy82Nicotine dependence, cigarettes, qmqyhkdksxrcm87Rectovaginal qifviza1903/06/2023 02/12/2025 Encounters DateTypeDepartmentCare JnqtLikugmxfszp53/14/2025Refill [facility] [place] [facility] [address] [facility] [address] [place] [address] Daniel Lopez MD 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)06/17/2025Refill [facility] [address] [facility] [address] [place] [address] Basia Rodriguez PA Generalized anxiety fdaezkmw57/16/2025bstract [facility] [address] [facility] [address] [place] [address] Daniel Lopez MD 06/09/2025Refill [facility] [address] [facility] [address] [place] [address] Daniel Lopez MD Hypothyroidism, unspecified type05/22/2025Refill [facility] [address] [facility] [address] [place] [address] Basia Rodriguez PA Panlobular emphysema (HCC)05/14/2025 11:00 AM EDTOffice Visit [facility] [address] [facility] [address] [place] [address] Basia Rodriguez PA Panlobular emphysema (HCC) (Primary Dx); Moderate episode of recurrent major depressive disorder (HCC); Acute exacerbation of chronic obstructive airways disease (HCC); Hypomagnesemia; Rhus dermatitis; 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); Colostomy in place (HCC)05/14/2025amboo flowsheet [facility] [address] [facility] [address] [place] [address] Basia Rodriguez PA 05/14/20255379Linmbq82/07/2025Refill [facility] [address] [facility] [address] [place] [address] Daniel Lopez MD Longstanding persistent atrial fibrillation (HCC)from Last 3 Months Immunizations ImmunizationAdministration DatesNext ElrPTC7311/11/2020Influenza, High Dose Seasonal, Preservative Free06/07/2020Influenza, High-dose Seasonal, Quadrivalent, Preservative Free10/17/2022Influenza, seasonal, intradermal, preservative free08/14/2019,06/13/2018,06/14/2017,07/18/2010Pneumococcal Conjugate PCV 1304Pneumococcal Polysaccharide SBSG6634 Family History Medical HistoryRelationNameCommentsCOPDFatherCancerMotherRelationNameStatus CommentsFatherDeceasedMotherDeceased Social History Tobacco UseTypesPacks/DayYears UsedDateSmoking Tobacco: TeptrhOghticcxpi676 Started: 03/22/1974Smokeless Tobacco: Never Tobacco Cessation:Counseling Given: Not Answered Alcohol UseStandard Drinks/WeekCommentsNot Currently0 (1 standard drink = 0.6 oz pure alcohol)PHQ-2AnswerDate RecordedPatient Health Questionnaire-2 Score6 02/12/2025CommentsUnknownSex and Gender InformationValueDate RecordedSex Assigned at BirthNot on fileLegal KdrUrvnyo42/15/2023 6:41 PM EDTGender Identity Not on fileSexual OrientationNot on file Last Filed Vital Signs Vital SignReadingTime TakenCommentsBlood Bdvjltxs173/70005/14/2025 11:16 AM EDT Ahurg295505/14/2025 11:16 AM JTWBfzgblveloh20.4 ??C (97.5 ??F)10/20/2024 1:44 PM ESTRespiratory Bsaf195205/14/2025 11:16 AM EDTOxygen Gvbqainwwr79%05/14/2025 11:16 AM EDTInhaled Oxygen Concentration--Jipfej32.3 kg (115 lb 6.4 oz)05/14/2025 11:16 AM AADXztabk708.9 cm (5' 1 )05/14/2025 11:16 AM EDTBody Mass Index21.8 05/14/2025 11:16 AM EDT Plan of Treatment DateTypeDepartmentCare Team (Latest Contact Info)Btgpsdieyix27/18/2025 11:30 AM ESTOffice Visit [facility] [place] [facility] [address] [place] [address] [place] [address] Basia Rodriguez PA [address] [facility] [address] [place] [address] Health MaintenanceDue DateLast DoneCommentsCT Owuialsrdpgo1955FIT 1955FOBT05/18/19563062Ogvqsroildhmy1956Pneumococcal Vaccine: 65+ Years (3 of 3 - PCV20 or PCV21)/09/2015, 01/05/2016DTaP/Tdap/Td Vaccines (2 - Tdap)OVID-19 Vaccine (4 - 2024- season)2025 08/25/2021, 01/03/2021, 12/11/20206743Tkjnsxlkv54, 07/05/2023, 07/04/2023, Additional history existsFIT-DNAolonoscopy , 07/18/2024, 07/18/2024, Additional history exists Colorectal Cancer Vmimjoyyp80/25/2034Influenza AktmtlxIaekrcflq60/16/2025, 10/17/2022, 06/07/2020, Additional history existsHIB VaccinesAged OutNo longer eligible based on patient's age to complete this topicHPV VaccinesAged OutNo longer eligible based on patient's age to complete this topicHepatitis A VaccinesAged OutNo longer eligible based on patient's age to complete this topic Hepatitis B VaccinesAged OutNo longer eligible based on patient's age to complete this topicIPV VaccinesAged OutNo longer eligible based on patient's age to complete this topicMeningococcal B VaccineAged OutNo longer eligible based on patient's age to complete this topicMeningococcal VaccineAged OutNo longer eligible based on patient's age to complete this topicRotavirus VaccinesAged Out No longer eligible based on patient's age to complete this topic Procedures Procedure NamePriorityDate/TimeAssociated DiagnosisCommentsMM TOMOSYNTHESIS SCREENING BI04/17/2025 3:22 PM EDT HM JRTGCGBGVHUFwohjdy33/ LAB COLOGUARD?? COLON CANCER BNOURGGaxjwzi53/28/2024 4:00 PM EDT Encounter for screening for malignant neoplasm of colon from Last 3 Months or Most Recently Relevant to Health Maintenance Results * MM TOMOSYNTHESIS SCREENING BI (04/17/2025 3:22 PM EDT)Anatomical Region LateralityModalityOtherSpecimen (Source)Anatomical Location / Laterality Collection Method / VolumeCollection TimeReceived Time04/17/2025 3:22 PM EDT Narrative 04/17/2025 3:23 PM EDT [facility] ?[address] ? [place] [address] ? Mammography Report ? Signed ? Patient: LILLIAM PACHECO ?MR#: [id number] ?? : 1955 ?Acct:[id number] ?? Age/Sex: 69 / F ?ADM Date: 04/17/ ?? Loc: CT ? Attending Dr: BASIA RODRIGUEZ ? Ordering Physician: BASIA RODRIGUEZ ? Results: ? Date of Service: 04/17/ ?Follow Up: ? Procedure(s): MM tomosynthesis screening BI ?? Accession Number(s): [id number] ? cc: DANIEL LOPEZ ; BSAIA RODRIGUEZ ? Patient Name: ? LILLIAMEVELYN SINGHR ? MR#: [id number] ? : 1955 ? Exam Date: 04/17/2025 ?? Ordering Doctor: DR BASIA AKHTAR ? RADIOLOGY REPORT ? PROCEDURE: ? MM TOMOSYNTHESIS SCREENING BI ? COMPARISON: ? MM TOMOSYNTHESIS SCREENING BI, 07/04/2023. ??MG MAMM SCREEN 3D ?? DEYSI CAD, 06/01/2021. ??MG MAMM SCREEN DEYSI W CAD, 02/24/2019. ??MAMMO DEYSI SCREEN, ?? 12/05/2001. ? INDICATIONS: ? screening for malignant neoplasm of breast ? Calculator Name ? NCI Breast Cancer Risk Assessment Tool ?? 5 Year Breast Cancer Risk ? 4.10% ?? Lifetime Breast Cancer Risk ? 12.80% ?? Personal Breast Cancer ?No ?? Personal Ovarian Cancer ? No ?? Treatments ? None ?? Family Cancers ? Mother with breast cancer at age ??30; Mother with lung ?? cancer at age 61; Brother with sm. cell lung cancer at age 39; Brother with ?? lung cancer at age 53; Brother with liver cancer at age 49; ?? Grandmother-paternal with colon cancer at age ??60; Uncle-maternal with lung ?? cancer at age ??50; Nephew with lung cancer at age 47. ? LOCATION: ? [facility] ? BREAST COMPOSITION: ? The breasts are heterogeneously dense, which may ?? obscure small masses. ? FINDINGS: ? RIGHT BREAST: ??No significant suspicious finding. ? LEFT BREAST: ??No significant suspicious finding. ? DIAGNOSTIC CATEGORY 1--NEGATIVE. ? RECOMMENDATIONS: ? ROUTINE MAMMOGRAM AND CLINICAL EVALUATION IN 12 MONTHS. ? PLEASE NOTE: ??A NORMAL MAMMOGRAM DOES NOT EXCLUDE THE POSSIBILITY OF BREAST ?? CANCER. ??A CLINICALLY SUSPICIOUS PALPABLE LUMP SHOULD BE BIOPSIED. ? Dictated by: Albino Eagle MD on 04/17/2025 at 15:18 ? Approved by: Albino Eagle MD on 04/17/2025 at 15:22 ? Dictated By: ?Albino Eagle M.D. ? Signed By: ?04/17/25 1523 ? DD/ 21 ? TD/TT: ? Lockstitcher: Procedure Note Radiology, Radiologist, - 04/17/2025 [place] [address] Mammography Report Signed Patient: LILLIAM PACHECO AMR#: [id number] : 1955cct:[id number] Age/Sex: 69 / FADM Date: 04/17/25 Loc: CT Attending Dr: BASIA RODRIGUEZ Ordering Physician: BASIA RODRIGUEZ MResults: Date of Service: 04/17/25Follow Up: Procedure(s): MM tomosynthesis screening BI Accession Number(s): [id number] cc: DANIEL LOPEZ ; BASIA RODRIGUEZ Patient Name: LILLIAM PACHECO MR#: [id number] : 1955 Exam Date: 04/17/2025 Ordering Doctor: DR BASIA RODRIGUEZ PA RADIOLOGY REPORT PROCEDURE: MM TOMOSYNTHESIS SCREENING BI COMPARISON: MM TOMOSYNTHESIS SCREENING BI, 07/04/2023. MG MAMM BPFRGQ1X DEYSI CAD, 06/01/2021. MG MAMM SCREEN DEYSI W CAD, 02/24/2019. MAMMO BILSCREEN, 12/05/2001. INDICATIONS: screening for malignant neoplasm of breast Calculator Name NCI Breast Cancer Risk Assessment Tool 5 Year Breast Cancer Risk 4.10% Lifetime Breast Cancer Risk 12.80% Personal Breast Cancer No Personal Ovarian Cancer No Treatments None Family Cancers Mother with breast cancer at age 30; Mother with lung cancer at age 61; Brother with sm. cell lung cancer at age 39; Brotherwith lung cancer at age 53; Brother with liver cancer at age 49; Grandmother-paternal with colon cancer at age 60; Uncle-maternal withlung cancer at age 50; Nephew with lung cancer at age 47. LOCATION: [facility] BREAST COMPOSITION: The breasts are heterogeneously dense, which may obscure small masses. FINDINGS: RIGHT BREAST: No significant suspicious finding. LEFT BREAST: No significant suspicious finding. DIAGNOSTIC CATEGORY 1--NEGATIVE. RECOMMENDATIONS: ROUTINE MAMMOGRAM AND CLINICAL EVALUATION IN 12 MONTHS. PLEASE NOTE: A NORMAL MAMMOGRAM DOES NOT EXCLUDE THE POSSIBILITY OFBREAST CANCER. A CLINICALLY SUSPICIOUS PALPABLE LUMP SHOULD BE BIOPSIED. Dictated by: Albino Eagle MD on 04/17/2025 at 15:18 Approved by: Albino Eagle MD on 04/17/2025 at 15:22 Dictated By: Albino Eagle M.D. Signed By:04/17/25 1523 DD/ 1522 TD/TT: Lockstitcher: Authorizing ProviderResult TypeResult StatusBasia Rodriguez [facility] Final Result * (ABNORMAL) Colonoscopy (07/18/2024)Anatomical RegionLateralityModalityOther Specimen (Source)Anatomical Location / LateralityCollection Method / Volume Collection TimeReceived Time07/18/2024 Narrative 07/21/2024 3:18 PM EDT Polypectomy - see scanned document for full report Authorizing ProviderResult TypeResult StatusDaniel Lopez MDHEALTH MAINTENANCE Final Result * (ABNORMAL) Cologuard?? colon cancer screening (05/21/2024 4:00 PM EDT) ComponentValueRef RangeTest MethodAnalysis TimePerformed AtPathologist SignatureNONINV COLON CA DNA+OCC BLD SCRN STL-IMPPositive(A)Mhskbcnf83/04/2024 3:02 AM EDTEXGenomera (CLIA #:[id number])Comment: POSITIVE TEST RESULT. A positive Cologuard result should be followed with a colonoscopy or visual examination of the colon. The normal value (reference range) for this assay is negative. TEST DESCRIPTION: Composite algorithmic analysis of stool DNA-biomarkers with hemoglobin immunoassay. ?? Quantitative values of individual biomarkers are not reportable and are not associated with individual biomarker result reference ranges. Cologuard is intended for colorectal cancer screening ofadults of either sex, 45 years or older, who are at average-risk for colorectal cancer (CRC). Cologuard has been approved for use by the U.S. FDA. The performance of Cologuard was established in a cross sectional study of average-risk adults aged 50-84. Cologuard performance in patients ages 45 to 49 years was estimated by sub-group analysis of near-age groups. Colonoscopies performed for a positive result may find as the most clinically significant lesion: colorectal cancer [4.0%], advanced adenoma (including sessile serrated polyps greater than or equal to 1cm diameter) [20%] or non- advanced adenoma [31%]; or no colorectal neoplasia [45%]. These estimates are derived from a prospective cross-sectional screening study of 10,000 individuals at average risk for colorectal cancer who were screened with both Cologuard and colonoscopy. (Goldie Watson et al, N Engl J Med 2014;370(14):5332-4190.) Cologuard may produce a false negative or false positive result (no colorectal cancer or precancerous polyp present at colonoscopy follow up). A negative Cologuard test result does not guarantee the absence of CRC or advanced adenoma (pre-cancer). The current Cologuard screening interval is every 3 years. ([place] Cancer Society and U.S. Multi-Society Task Force). Cologuard performance data in a 10,000 patient pivotal study using colonoscopy as the reference method can be accessed at the following location: www.GoChongo/results. Additional description of the Cologuard test process, warnings and precautions can be found at www.cologuard.com. Specimen (Source)Anatomical Location / LateralityCollection Method / Volume Collection TimeReceived TimeStool specimen (specimen)05/21/2024 4:00 PM EDT 05/23/2024 8:36 AM EDT Narrative Authorizing ProviderResult TypeResult StatusDanijamison [facility] ORDERABLESFinal ResultPerforming OrganizationAddressCity/State/ZIP CodePhone Number .[place] (CLIA #:[id number]) [address] [address] [phone] [email or web address] (CLIA #:[id number]) [address] [place] [phone] from Last 3 Months or Most Recently Relevant to Health Maintenance Insurance Care Teams Team MemberRelationshipSpecialtyStart DateEnd Daniel Rivera MD [address] [address] PCP - GeneralInternal Medicine01/30/23
--- OUTSIDE RECORDS SUMMARY | 2025-07-27 12:32 | XMS_ITS | Clinical Summary ---
Author Organization [facility] Address [address], [address] [place] [address] Care Team Providers Care Blanching Machine Operator Name Role Phone Daniel Lopez MD Primary Care Provider [phone] Allergies Active AllergyReactionsCriticalityNoted RohuAryzswqkPzlqyjnujPzjfkrv58/05/2024 Medications MedicationSigDispense QuantityRefillsLast FilledStart DateEnd DateStatus albuterol (PROVENTIL) (2.5 MG/3ML) 0.083% nebulizer solution Take 3 mLs by nebulization every 4 hours as needed for WheezingActive alendronate (FOSAMAX) 70 MG tablet Take 1 tablet by mouth every 7 daysActive apixaban (ELIQUIS) 5 MG TABS tablet Take 1 tablet by mouth 2 times dailyActive vitamin D (CHOLECALCIFEROL) 25 MCG (1000 UT) TABS tablet Take 1 tablet by mouth dailyActive clonazePAM (KLONOPIN) 0.5 MG tablet Take 1 tablet by mouth every 8 hours as needed for Anxiety.Active escitalopram (LEXAPRO) 20 MG tablet Take 1 tablet by mouth dailyActive levothyroxine (SYNTHROID) 88 MCG tablet Take 1 tablet by mouth DailyActive loratadine (CLARITIN) 10 MG capsule Take 1 capsule by mouth daily as needed (congestion)Active magnesium oxide (MAG-OX) 400 (240 Mg) MG tablet Take 1 tablet by mouth dailyActive OXYGEN Inhale 2-3 L into the lungsActive tiotropium (SPIRIVA) 18 MCG inhalation capsule Inhale 1 capsule into the lungs dailyActive albuterol sulfate HFA (PROVENTIL;VENTOLIN;PROAIR) 108 (90 Base) MCG/ACT inhaler Inhale 2 puffs into the lungs every 4 hours as needed for WheezingActive fluticasone-salmeterol (ADVAIR) 100-50 MCG/ACT AEPB diskus inhaler Inhale 1 puff into the lungs 2 times dailyActive metoprolol succinate (TOPROL XL) 25 MG extended release tablet Take 1 tablet by mouth dailyActive TRAMADOL HCL PO Take 1 tablet by mouth every 8 hours as needed (pain). Max Daily Amount: 3 tabletsActive acetaminophen (TYLENOL) 500 MG tablet Take 1 tablet by mouth every 8 (eight) hours for 7 days 21 tablet 5Active Active Problems ProblemNoted DateDiagnosed DateDiverticulitis of colon09/22/2024olostomy in place06/09/2024olovaginal bxwzvrp1306/07/2024OPD without exnkubfsghxg39/14/2024 Chronic hypoxic respiratory failure, on home oxygen xreqakr4306/07/2024rimary ujahznuvyvbx62/14/2024Longstanding persistent atrial frdvoebjdpyp30/14/2024 Orkmrvplnrieua97/14/2024Secondary hypercoagulable state06/07/2024Hyponatremia 06/07/2024 Resolved Problems ProblemNoted DateDiagnosed DateResolved DateAtrial fibrillation with RVR SBO (small bowel obstruction)/ Family History Medical HistoryRelationNameCommentsCOPDFatherLung CancerMotherRelationNameStatus CommentsFatherMother Social History Tobacco UseTypesPacks/DayYears UsedDateSmoking Tobacco: FormerCigarettes Smokeless Tobacco: Never Tobacco Cessation:Counseling Given: Not Answered Alcohol UseStandard Drinks/WeekCommentsYes0 (1 standard drink = 0.6 oz pure alcohol)currently rare usage right [facility] UtilitiesAnswerDate RecordedIn the past 12 months has the [employer], gas, oil, or water [employer] threatened to shut off services in your home?No09/23/2024Hunger Vital SignAnswerDate RecordedWithin the past 12 months, you worried that your food would run out before you got the money to buymore.Never true09/23/2024Within the past 12 months, the food you bought just didn't last and you didn't have money to get more.Never true 09/23/2024RAPARE - TransportationAnswerDate RecordedIn the past 12 months, has lack of transportation kept you from medical appointments or from getting medications?No09/23/2024In the past 12 months, has lack of transportation kept you from meetings, work, or from getting things needed for daily living?No 09/23/2024Housing Stability Vital SignAnswerDate RecordedIn the last 12 months, was there a time when you were not able to pay the mortgage or rent on time?No 09/23/2024In the past 12 months, how many times have you moved where you were living?t any time in the past 12 months, were you homeless or living in a detention (including now)?No09/23/2024Food InsecurityAnswerDate Recorded Within the past 12 months, you worried that your food would run out before you got the money to buymore.Within the past 12 months, the food you bought just didn't last and you didn't have money to get more. Interpersonal Safety Domain Source: IP Abuse ScreeningAnswerDate Recorded Physical putqdGamlyx00/30/2024Verbal ncxkbAtjdhw54/30/2024Emotional abuseDenies 09/22/2024Financial okejfVfgbdt16/30/2024Sexual eewlxPifsmo63/30/2024 CommentsNoSex and Gender InformationValueDate RecordedSex Assigned at BirthNot on fileLegal GxkVddoko64/10/2013 5:09 PM ESTGender IdentityNot on fileSexual OrientationNot on file Last Filed Vital Signs Vital SignReadingTime TakenCommentsBlood Jdvlmetg780/9901 11:20 AM EST Qlqxf6576/06/2025 11:20 AM LTAFjqvrjhtllf40.5 ??C (97.7 ??F)09/29/2024 11:20 AM ESTRespiratory Lbgx490709/29/2024 11:20 AM ESTOxygen Vnbswlymuw81%09/29/2024 11:20 AM ESTInhaled Oxygen Concentration--Bbwgtl73.3 kg (111 lb)09/29/2024 5:52 AM EST Fkdwcv300.9 cm (5' 0.98 )09/22/2024 11:14 AM ESTBody Mass Index20.9809/22/2024 11:14 AM EST Plan of Treatment Health MaintenanceDue DateLast DoneCommentsDepression Ooeoyj6305/18/1968Hepatitis C zsyhyl4505/18/19741021Noxsvd53/25/1996FIT/FOBT: Average risk2001 Sigmoidoscopy/CT ckewpwchezhy10/25/2001Shingles vaccine (1 of 2)2006 Respiratory Syncytial Virus (RSV) or age 60 yrs+ (1 - Risk 60-74 years 1-dose series)2016Pneumococcal 50+ years Vaccine (3 of 3 - PCV20 or PCV21) /09/2015, 01/05/2016Breast cancer kckogb92/04/2021, 02/24/2019, 02/24/2019Annual Wellness Visit (Medicare)09/26/2024Flu vaccine (#1) 501/, 06/07/2020, 08/14/2019, Additional history existsCOVID-19 Vaccine ( - season)/10/2020, 01/03/2021, 12/11/2020Fecal- DNA (Cologuard): Average risk8/TaP/Tdap/Td vaccine (2 - Tdap) /4959Jhlxinzuntt31/25/203410/olorectal Cancer Screen 07/18/2034EXA (modify frequency per FRAX score)Thuhmnekh82/30/2021Hepatitis A vaccineAged OutNo longer eligible based on patient's age to complete this topic Hepatitis B vaccineAged OutNo longer eligible based on patient's age to complete this topicHib vaccineAged OutNo longer eligible based on patient's age to complete this topicMeningococcal (ACWY) vaccineAged OutNo longer eligible based on patient's age to complete this topicMeningococcal B vaccineAged OutNo longer eligible based on patient's age to complete this topicPolio vaccineAged OutNo longer eligible based on patient's age to complete this topic Insurance Advance Directives * Full Code (Latest Code Status on File) Date ActivatedDate ZhqvueczrorPlpafsvm19/30/2024 8:26 PM09/29/2024 3:21 PM * Full Code Date ActivatedDate ExupgkotazzRwyoqmec27/30/2024 8:26 PM09/22/2024 8:26 PM * Full Code Date ActivatedDate InactivatedComments06/07/2024 4:50 PM06/11/2024 8:10 PM NameRelationshipHealthcare Agent RelationshipCommunicationRick Danitzapouse Primary Decision Maker* Care Teams Team MemberRelationshipSpecialtyStart DateEnd Date Daniel Lopez MD [address] [place] [address] PCP - GeneralInternal Medicine06/10/24
--- OUTSIDE RECORDS SUMMARY | 2025-07-27 12:32 | XMS_ITS | Encounter Summary ---
Author Organization [facility] Address [address] [place] [address] Care Team Providers Care Engineer Third Assistant Name Role Phone Daniel Lopez MD Unavailable [phone] Daniel Lopez MD Primary Care Provider [phone] Encounter Details DateTypeDepartmentCare Team (Latest Contact Info)Oyzjauhxaag87/05/2024Clinisync Result Encounter [facility] External Department Unsolicited Daniel Lopez MD [address] [facility] [address] [place] [address] Social History Tobacco UseTypesPacks/DayYears UsedDateSmoking Tobacco: Every DayCigarettes Smokeless Tobacco: NeverPHQ-2AnswerDate RecordedPatient Health Questionnaire-2 Szasv10502/12/2025CommentsUnknownSex and Gender InformationValueDate RecordedSex Assigned at BirthNot on fileLegal LgjKdtfbe49/15/2023 6:41 PM EDT Gender IdentityNot on fileSexual OrientationNot on filedocumented as of this encounter Functional Status * Over the past 2 weeks, how often have you been bothered by any of the following problems?QuestionAnswerDate of AssessmentAuthorLittle interest or pleasure in doing thingsNearly every day02/12/2025 11:00 AM EDTVoss, Ana Laura, LPNFeeling down, depressed, or hopelessNearly every day02/12/2025 11:00 AM EDT Augustina, Ana Laura, LPNPatient Health Questionnaire-2 Psjzz21702/12/2025 11:00 AM Ana Laura Myers LPN * QuestionAnswerDate of AssessmentAuthorTrouble falling or staying asleep, or sleeping too muchNearly every day02/12/2025 11:00 AM Ana Laura Emerson LPN Feeling tired or having little energyNearly every day02/12/2025 11:00 AM Ana Laura Myers LPNPoor appetite or overeatingNearly every day02/12/2025 11:00 AM Ana Laura Emerson LPNFeeling bad about yourself - or that you are a failure or have let yourself or your family downNearly every day02/12/2025 11:00 AM Ana Laura Emerson LPNTrouble concentrating on things, such as reading the newspaper or watching televisionNearly every day02/12/2025 11:00 AM Ana Laura Emerson LPNMoving or speaking so slowly that other people could have noticed? Or the opposite - being so fidgety or restless that you have been moving around a lot more than usual.Not at all02/12/2025 11:00 AM Ana Laura Emerson LPNThoughts that you would be better off or hurting yourself in some way Not at all02/12/2025 11:00 AM Ana Laura Emerson LPNPatient Health Questionnaire-9 Iunmk957702/12/2025 11:00 AM Ana Laura Emerson LPN documented as of this encounter Plan of Treatment DateTypeDepartmentCare Team (Latest Contact Info)Oyyttbawlgz50/18/2025 11:30 AM ESTOffice Visit [facility] [address] [facility] [address] [place] [id number] Basia Rodriguez PA [address] [facility] [address] [place] [address] documented as of this encounter Procedures Procedure NamePriorityDate/TimeAssociated DiagnosisCommentsHOLTER MONITOR 8 TO 15 DAYS03/28/2024 2:03 PM EDT documented in this encounter Results * Holter monitor 8 to 15 days (03/28/2024 2:03 PM EDT)Anatomical Region LateralityModalityOtherSpecimen (Source)Anatomical Location / Laterality Collection Method / VolumeCollection TimeReceived Time03/28/2024 2:03 PM EDT Narrative 03/28/2024 6:33 PM EDT [facility] ?[address] ? [place] [address] ? Cardiology Report ? Signed ? Patient: LILLIAM PACHECO A ?MR#: [id number] ?? : 1955 ?Acct:[id number] ?? Age/Sex: 68 / F ?ADM Date: 03/07/24 ?? Loc: RAD ? Attending Dr: DANIEL LOPEZ ? Ordering Physician: DANIEL LOPEZ ?? Date of Service: 03/07/24 ?? Procedure(s): CA holter monitor 7-15 days ?? Accession Number(s): [id number] ? cc: DANIEL LOPEZ ?[facility] ? Test Date: ?2024-03-28 ?? Pat Name: ? LILLIAM JUNIOR ?Department: ? Room: ? - ?? Gender: ? Female ? Coal Picker: ? : ?1955 ? Requested By: DANIEL LOPEZ ?? Order Number: [id number] ?Reading MD: ?? HORACE ??BALL ? Interpretive Statements ?? Predominant rhythm is sinus w/ average rate of 90 bpm ?? Tachycardia ?? - max rate of 185 bpm (atrial fibrillation) ?? - 6 episodes of PSVT w/ fastest rate of 170 bpm and longest 4 beats ?? Bradycardia ?? - none ?? Ventricular ectopy ?? - 147 total, < 1% - 137 PVC ?? - 10 couplets ?? Episodes of atrial fibrillation ?? - 4% burden ?? - longest episode of 6h 44min 42sec ?? Patient triggered events: 1 ?? - associated with palpitations ?? - NSR ? Impression: ?? Predominant rhythm is sinus w/ average rate of 90 bpm ?? Fastest rate of 185 bpm (atrial fibrillation) and slowest rate of 67 bpm ?? 137 PVC, 10 couplets ?? Atrial fibrillation ?? - 4% burden ?? - longest episode of 6h 44min 42sec ?? - fastest rate of 185 bpm ?? No pauses or blocks ? Electronically Signed On 03-28-2024 18:32:52 EDT by HORACE ??JASPER ? Dictated By: ?Horace Hutchinson D.O. ? Signed By: ?03/28/243 ?03/28/24 1833 ? DD/ 1403 ? TD/TT: ? Orthopedic Physical Therapist: Procedure Note Radiology, Radiologist, - 03/28/2024 [place] [address] Cardiology Report Signed Patient: LILLIAM PACHECO AMR#: [id number] : 1955cct:[id number] Age/Sex: 68 / FADM Date: 03/07/24 Loc: RAD Attending Dr: DANIEL LOPEZ Ordering Physician: DANIEL LOPEZ Date of Service: 03/07/24 Procedure(s): CA holter monitor 7-15 days Accession Number(s): [id number] cc: DANIEL LOPEZ [facility] Test Date: 2024-03-28 Pat Name: LILLIAM PACHECO Department: Room: - Gender: Female Coal Picker: : 1955 Requested By: DANIEL LOPEZ Order Number: [id number] Reading MD: HORACE HUTCHINSON Interpretive Statements Predominant rhythm is sinus w/ average rate of 90 bpm Tachycardia - max rate of 185 bpm (atrial fibrillation) - 6 episodes of PSVT w/ fastest rate of 170 bpm and longest 4 beats Bradycardia - none Ventricular ectopy - 147 total, < 1% - 137 PVC - 10 couplets Episodes of atrial fibrillation - 4% burden - longest episode of 6h 44min 42sec Patient triggered events: 1 - associated with palpitations - NSR Impression: Predominant rhythm is sinus w/ average rate of 90 bpm Fastest rate of 185 bpm (atrial fibrillation) and slowest rate of 67 bpm 137 PVC, 10 couplets Atrial fibrillation - 4% burden - longest episode of 6h 44min 42sec - fastest rate of 185 bpm No pauses or blocks Electronically Signed On 03-28-2024 18:32:52 EDT by HORACE HUTCHINSON Dictated By: Horace Hutchinson D.O. Signed By:03/28/24183203/28/241832 DD/ 140 TD/TT: Orthopedic Physical Therapist: Authorizing ProviderResult TypeResult StatusDaabimael Lopez [facility] PROCEDURESFinal Result documented in this encounter Visit Diagnoses Not on filedocumented in this encounter Care Teams Team MemberRelationshipSpecialtyStart DateEnd Date Daniel Lopez MD [address] [facility] [address] [place] [address] PCP - Lyndsay TADEO09/24/2211 Daniel Lopez MD [address] [facility] [address] [place] [address] PCP - GeneralInternal Medicine01/30/23documented as of this encounter
--- OUTSIDE RECORDS SUMMARY | 2025-07-27 12:32 | XMS_ITS | Patient Health Record ---
Author Organization [facility] [place] Address [address] [place] [address] Care Team Providers Care Trailer Driver Name Role Phone Daniel Lopez MD Primary Care Provider Za Salgado Unavailable [phone] Allergies No Known Allergies Reason For Referral No Information Medications Medication SIG (Take, Route, Frequency, Duration) Notes Start Date End Date Status Loratadine 10 MG 1 tablet Orally Once a day ActiveMagnesium Oxide 400 MG1 tablet as needed Orally Once a dayActiveFlagyl 500 MG1 tablet Orally at 1pm, 2pm and 10pm; Duration: 1 09/15/2024ctive Levothyroxine Sodium 88 MCG1 tablet in the morning on an empty stomach Orally Once a dayActiveEliquis 5 MGas directed OrallyActiveEscitalopram Oxalate 20 MG1 tablet Orally Once a dayActiveAlendronate Sodium 70 MG1 tablet 30 minutes before the first food, beverage or medicine of the day with plain water OrallyActive traMADol HCl 50 MG1 tablet as needed Orally Once a dayActiveclonazePAM 0.5 MG1 tablet Orally Once a dayActiveCholecalciferol 25 MCG (1000 UT)1 capsule Orally Once a dayNot-TakingNeomycin Sulfate 500 MG2 tablets Orally @ 1pm 2pm and 10pm; Duration: 09/15/2024Not-TakingAlbuterol Sulfate HFA 108 (90 Base) MCG/ACT1 puff as needed Inhalation every 4 hrsActiveTiotropium Herod Monohydrate 18 MCG 1 capsule by inhaling the contents of the capsule using the HandiHaler device Inhalation Once a dayActiveMetoprolol Succinate 25 MG1 capsule Orally Once a day Active Social History Tobacco Use: Social History Observation Description Date Details (start date - stop date) Former Smoker NA - NA Tobacco Control (Standard) Question Answer Notes Tobacco use: Former smoker Problems Problem Type SNOMED Code ICD Code Onset Dates Problem Status W/U Status Risk Notes Problem Fjumy-ci-yyaeffv hyp oxemic respiratory failure (40694871666246155) Acute and chronic respiratory failure with hypoxia (J96.21) ActiveconfirmedProblemHypothyroidism (97197941)Hypothyroidism (E03.9)Active confirmedProblemAcute exacerbation of chronic obstructive airways disease (957307181)COPD exacerbation (J44.1)ActiveconfirmedProblemTobacco dependence (62459314)Tobacco dependence (F17.200)ActiveconfirmedProblemHistory of colostomy (101938533)S/P colostomy (Z93.3)ActiveconfirmedProblemHypertensive disorder (26807150)Chronic hypertension (I10)ActiveconfirmedProblemMixed anxiety and depressive disorder (852632988)Anxiety and depression (F41.8)Activeconfirmed ProblemIntestinal obstruction (54353944)Colon obstruction (K56.609)Active confirmedProblemFemale digestive-genital tract fistula (71761607)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 Vital Signs Blood pressure diastolic 70 mm Hg 08/05/2024 Ztnjdt28 in11/03/2024lood pressure mm Hg08/05/20240211Cltmnn430.2 lbs 11/03/2024BMI21.01 kg/m211/03/2024 Encounters Encounter Location Date Provider Diagnosis General Surgery [facility] [address] [place] [address] 11/03/2024 Za Chan Encounter for examination following surgery Z09 [facility] [address] [place] [address] 09/22/2024 Za Chan General Surgery [facility] [address] [place] [address]/08/2024Trictesha ChanS/P colostomy Z93.3 ; Colon obstruction K56.609 and Colouterine fistula N82.4General Surgery [facility] and [address] [place] [address]/Za Chan Encounter for examination following surgery I74Nvxwdbh Surgery [facility] and [address] [place] [address]/Za ChanGeneral Surgery [facility] and [address] [place] [address]/Za Chan Assessments Encounter Date Diagnosis (ICD Code) Assessment Notes Treatment Notes Treatment Clinical Notes Section Notes 08/05/2024 S/P colostomy (ICD-10 - Z93.3) discussed with the patient, and daughter on the phone a 2 stage procedure the 1st of which will be an open sigmoid resection with repair of colovaginal fistula followed by reversal of the loop colostomy As I would like to avoid 2 anastomoses in the same procedure. I explained the 1st procedure in detail and advised that the patient will be staying overnight in the hospital for several days. patient will undergo colon prep additionally from below with an enema. Discussed the risks of theprocedure including infection, bleeding, injury to surrounding structures, need for more procedures, chronic pain, scarring in the risks of anesthesia. Patient agrees with the plan and would like toproceed with surgery.10/09/2024Encounter for examination following surgery (ICD-10 - Z09)patient is overall recovering well postoperatively. Discussed taking in protein shakes in the perioperative period to assist with wound healing and overall recovery following open surgery. Packing atthe prior colostomy site we will likely last for an additional week or so as it is healing very well. All karen were removed in office. DAILY drain additionally removed. Answered all questions for patient and daughter. We will follow up in 3 weeks for re-kjzitprdoc73/10/2025Encounter for examination following surgery (ICD-10 - Z09)Patient is much better - tolerating more PO, having more energy and appears to be in much better spirits. Discussed continued increase of p.o. intake, particularly protein. Discussed that patient mayincrease her activity and should be able to liberate the weightlifting restrictions. Answered all questions. 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 Plan Of Treatment No Information Insurance Providers Payer Name Payer Address Payer Phone Subscriber Number Group Number Insured Name Patient Relationship to Insured Coverage Start Date Coverage End Date [place] [address] [place] [place] [address] [id number] Be Bajwa - patient is the insured[facility] [address] [address] [place] [id number], PatriciaSelf - patient is the [id number] 2024 Medical (General) History Medical History History ICD Code bowel obstruction COPDhypothyroidismatrial fibrillationhypertensionosteoporosisSurgical History Surgery Date(Month/Year) open sigmoid resection 08/2024 breast biopsy bronchoscopycardiac cathc-sectionhysterectomytransverse colostomy06/10/24 akakcvrpzma20/30/24
--- OUTSIDE RECORDS SUMMARY | 2025-07-27 12:32 | XMS_ITS | Encounter Summary ---
Author Organization [facility] Address [address] [place] [address] Care Team Providers Care Energy And Sustainability Manager Name Role Phone Daniel Lopez MD Unavailable [phone] Daniel Lopez MD Primary Care Provider [phone] Encounter Details DateTypeDepartmentCare Team (Latest Contact Info)Vvmgyvbtktj42/17/2024Clinisync Result Encounter [facility] Department Unsolicited Daniel Lopez MD [address] [facility] [address] [place] [address] Social History Tobacco UseTypesPacks/DayYears UsedDateSmoking Tobacco: Every DayCigarettes Smokeless Tobacco: NeverPHQ-2AnswerDate RecordedPatient Health Questionnaire-2 Flfdd82202/12/2025CommentsUnknownSex and Gender InformationValueDate RecordedSex Assigned at BirthNot on fileLegal TwsRanpxb88/15/2023 6:41 PM EDT Gender IdentityNot on fileSexual [...] EDT Augustina, Ana Laura, LPNPatient Health Questionnaire-2 Dyszw00202/12/2025 11:00 AM Ana Laura Myers LPN * [...] AM Ana Laura Emerson LPNPatient Health Questionnaire-9 Faicr423102/12/2025 11:00 AM Ana Laura Emerson LPN documented as of this encounter Plan of Treatment DateTypeDepartmentCare Team (Latest Contact Info)Rbxfyogizwt17/18/2025 11:30 AM ESTOffice Visit [facility] [place] [facility] [address] [facility] [address] [place] [phone] Basia Rodriguez PA [address] [facility] [address] [place] [address] documented as of this encounter Procedures Procedure NamePriorityDate/TimeAssociated DiagnosisCommentsXR DEXA AXIAL EITRJXNR36/17/2024 7:46 AM EDT documented in this encounter Results * XR DEXA AXIAL SKELETON (03/10/2024 7:46 AM EDT)Anatomical RegionLaterality ModalityOtherSpecimen (Source)Anatomical Location / LateralityCollection Method / VolumeCollection TimeReceived Time03/10/2024 7:46 AM EDT Narrative 03/10/2024 7:49 AM EDT [facility] ?[address] ? [place], [facility] ?XRay Report ? Signed ? Patient: TERESOACHER,LILLIAM A ?MR#: [id number] ?? : 1955 ?Acct:[id number] ?? Age/Sex: 68 / F ?ADM Date: 03/07/24 ?? Loc: RAD ? Attending Dr: DANIEL LOPEZ ? Ordering Physician: DANIEL LOPEZ ?? Date of Service: 03/07/24 ?? Procedure(s): XR DEXA axial skeleton ?? Accession Number(s): [id number] ? cc: DANIEL LOPEZ ? [facility] ? [address] [facility] ? [place] [address] ? Patient Name: ?? LILILAM PACHECO ? MRN: [facility]:[id number] ? date: 1955 ?Sex: F ?? Assigned Patient Location: RAD ?? Current Patient Location: ? Accession/Order Number: [id number] ?? Exam Date: 03/07/2024 ??12:48 ?Report Date: 03/10/2024 ??07:46 ? At the request of: ?MARANDA ? Procedure: ??XR DEXA axial skeleton ? EXAMINATION: XR DEXA axial skeleton ? HISTORY: Estrogen deficiency, E28.39 ? COMPARISON: DEXA bone densitometry 06/01/2021 ? TECHNIQUE: Dual-energy X-ray absorptiometry (DXA) was performed. ? FINDINGS: ?? SPINE ANALYSIS: ?? Average bone mineral density is 1.016 g/cm2. ?? T-score (standard deviation relative to young adult mean): -1.4 . ?? -0.2% change since prior study. ? HIP ANALYSIS: ?? Lowest bone mineral density is within the left femoral neck, 0.605 g/cm2. ?? T-score (standard deviation relative to young adult mean): -3.1 . ?? -11.5% change since prior study. ? XR/XR DEXA axial skeleton ?? IMPRESSION: ? [place] Organization Classification: Osteoporosis - High Fracture Risk ?? FRAX: ? Electronically authenticated by: JACOB ??DENNIS ?? Date: 03/10/2024 ??07:46 ? Dictated By: ?Jacob Ortiz M.D. ? Signed By: ?03/10/24 07 ? DD/ 0746 ? TD/TT: ? Ict Trainer: Procedure Note Radiology, Radiologist, MD - 03/10/2024 [place] [address] XRay Report Signed Patient: LILLIAM PACHECO [facility]#: [id number] : 1955cct:[id number] Age/Sex: 68 / FADM Date: 03/07/24 Loc: RAD Attending Dr: DANIEL LOPEZ Ordering Physician: DANIEL LOPEZ Date of Service: 03/07/24 Procedure(s): XR DEXA axial skeleton Accession Number(s): [id number] cc: DANIEL LOPEZ [place] [address] Patient Name: LILLIAM PACHECO MRN: [id number] date: 1955 Sex: F Assigned Patient Location: [facility] Current Patient Location: Accession/Order Number: [id number] Exam Date: 03/07/2024 12:48 Report Date: 03/10/2024 07:46 At the request of: DANIEL LOPEZ Procedure: XR DEXA axial skeleton EXAMINATION: XR DEXA axial skeleton HISTORY: Estrogen deficiency, E28.39 COMPARISON: DEXA bone densitometry 06/01/2021 TECHNIQUE: Dual-energy X-ray absorptiometry (DXA) was performed. FINDINGS: SPINE ANALYSIS: Average bone mineral density is 1.016 g/cm2. T-score (standard deviation relative to young adult mean): -1.4 . -0.2% change since prior study. HIP ANALYSIS: Lowest bone mineral density is within the left femoral neck, 0.605 g/cm2. T-score (standard deviation relative to young adult mean): -3.1 . -11.5% change since prior study. XR/XR DEXA axial skeleton IMPRESSION: [place] Organization Classification: Osteoporosis - High Fracture Risk FRAX: Electronically authenticated by: JACOB ORTIZ Date: 03/10/2024 07:46 Dictated By: Jacob Ortiz M.D. Signed By:03/10/2449 DD/ TD/TT: Ict Trainer: Authorizing ProviderResult TypeResult StatusDanijamison Lopez MDCLINISYNC IMAGING Final Result documented in this encounter Visit Diagnoses Not on filedocumented in this encounter Care Teams Team MemberRelationshipSpecialtyStart DateEnd Date Daniel Lopez MD [address] [facility] [address] [place] [address] PCP - Lyndsay TADEO09/24/2211 Daniel Lopez MD [address] [facility] [address] [place] [address] PCP - GeneralInternal Medicine01/30/23documented as of this encounter
--- OUTSIDE RECORDS SUMMARY | 2025-07-27 12:38 | XMS_ITS | CCD ---
Author Organization [facility] CliniSytn Care Team Providers Care Cooper Helper Name Role Phone Allyssa Moreno Unavailable JEREMIAS LOPEZ Primary Care Unavailable VAUGHN, DR BONILLA Attending Unavailable VAUGHN, DR BONILLA Consulting Unavailable VAUGHN, DR BONILLA Admitting Unavailable JEREMIAS LOPEZ Consulting Unavailable JEREMIAS LOPEZ Attending Unavailable JEREMIAS LOPEZ Admitting Unavailable JEREMIAS LOPEZ Primary Care Unavailable TRICIA OZUNA Consulting Unavailable JEREMIAS LOPEZ Primary Care Unavailable JEREMIAS LOPEZ Consulting Unavailable JEREMIAS LOPEZ Attending Unavailable JEREMIAS LOPEZ Admitting Unavailable NIKKI WHITE Consulting Unavailable JEREMIAS LOPEZ Primary Care Unavailable CHABAN, DR BONILLA Attending Unavailable VAUGHN, DR BONILLA Admitting Unavailable ZINORBERT, DR WESTLEY [place] Consulting Unavailable CHACASTILLO, DR BONILLA Consulting Unavailable JEREMIAS LOPEZ Consulting Unavailable JEREMIAS LOPEZ Attending Unavailable JEREMIAS LOPEZ Admitting Unavailable JEREMIAS LOPEZ Primary Care Unavailable JEREMIAS LOPEZ Primary Care Unavailable CHABAN, DR BONILLA Admitting Unavailable CHACASTILLO, DR BONILLA Attending Unavailable JEREMIAS LOPEZ Primary Care Unavailable SHAIKH Henry MORALES Admitting Unavailable INDER ., DR VASILIY Graff Consulting Unavaila SHAIKH Henry Kingsley Attending Unavailable DENNIS, DR WESTLEY [place] Consulting Unavailable MARC ENGLAND Consulting Unavailable SHAIKH Henry MORALES Consulting Unavailable SILVINO ELLIOTT Consulting Unavailable BASIA MORGAN Consulting Unavailable MILDRED ., DR ISABELLA Graff Attending Unavailable FATUMA, DR TRICIA v[place] Consulting Unavailable MILDRED ., DR ISABELLA Graff Admitting Unavailable JEREMIAS LOPEZ Primary Care Unavailable MILDRED ., DR [...] Consulting Unavailable JUAN MANUEL JERNIGAN Consulting Unavailable Jeremias Lopez MD Unavailable [phone] Jeremias Lopez MD Primary Care Provider Jeremias Lopez MD Primary Care Provider KERRIE LOMBARDO Attending Unavailable JEREMIAS LOPEZ Primary Care Unavailable KERRIE LOMBARDO Attending Unavailable KERRIE LOMBARDO Referring Unavailable JEREMIAS LOPEZ Primary Care Unavailable Jeremias Lopez MD Primary Care Provider [phone] JEREMIAS LOPEZ Primary Care Unavailable BLOOD, SEAN Mata Consulting Unavailable ZA MASON M Admitting Unavailable ZA MASON Attending Unavailable KEMAR POWERS Consulting Unavailable JEREMIAS LOPEZ Primary Care Unavailable BLOOD, SEAN Mata Admitting Unavailable BLOOD, SEAN Mata Attending Unavailable ROBEL HUBBARD Referring Unavailable KIARRA MASONIA M Consulting Unavailable SILVINO HANNAH Consulting Unavailable KIARRA MASONIA M Referring Unavailable JEREMIAS LOPEZ Primary Care Unavailable JEREMIAS LOPEZ Primary Care Unavailable ISABELLA, ZA M Admitting Unavailable ZA MASON M Attending Unavailable KERRIE LOMBARDO Referring Unavailable JEREMIAS LOPEZ Primary Care Unavailable BASIA OREILLY Attending Unavailable BASIA OREILLY Attending Unavailable BASIA OREILLY Attending Unavailable ISABELLA NICOLAS Attending Unavailable Jeremias Lopez MD Unavailable Allergies Allergy ClassificationReported Allergen(s)Allergy TypeDate of OnsetReaction(s) Facility (20 sources)buPROPionDrug [id number] [facility] (4 sources)buPROPion; Translations: [BUPROPION HCL]Drug [id number] [facility] Medications Current Medications MedicationDrug Class(es)DatesSig (Normalized)Sig (Original)acetaminophen 500 mg oral tablet (20 sources)Start: 09-29-2024 End: 08-81-0197njjc 1 tablet by mouth every eight hoursacetaminophen (TYLENOL) 500 MG tablet Take 1 tablet by mouth every 8 (eight) hours for 7 days 21 tablet 09/29/2024 10/06/2024 ActiveStart: 39-31-0664yabh 1 dose by mouth three times daily, then take 4000 mg by mouth every twenty-four hours1,000 mg, Oral, EVERY 8 HOURS SCHEDULED (3 times per day), First dose on Sun09/22/24 at 2200, Until Discontinued, Maximum dose of acetaminophen is 4000 mg from all sources in 24 hours.take 1 tablet by mouth every six hours as needed for painacetaminophen (Tylenol) 500 MG tablet Take 500 mg by mouth every 6 (six) hours if needed for mild pain Activeacetaminophen 300 mg / codeine phosphate 30 mg oral tablet (4 sources)Opioid Agonisttake 1 tablet by mouth every six hoursAcetaminophen- Codeine 300-30 MG 1 tablet as needed Orally every 6 hrs [id number] 200 actuat albuterol 0.09 mg/actuat metered dose inhaler (20 sources)beta2-Adrenergic AgonistStart: 12-98-2786vmge 2 puff(s) by inhalation every four hours as neededalbuterol HFA 90 mcg/act inhaler Indications: Panlobular emphysema (HCC) INHALE 2 PUFFS EVERY 4 HOURS NEEDED 18 g 5 05/22/2025 ActiveStart: 27-16-2055fkpn 2 puff(s) by inhalation four times daily2 puff, Inhalation, 4 TIMES DAILY RESP, First dose (after last modification) on Sun09/24/24 at 1600,Until Discontinued, Initiate RT Bronchodilator Protocol: Yes - Inpatient ProtocolStart: 09-22-2024 End: 80-63-6448okxp 2 puff(s) by inhalation twice daily2 puff, Inhalation, 2 TIMES DAILY RESP, First dose on Sun09/22/24 at 2230, Until Discontinued, Init iate RT Bronchodilator Protocol: Yes - Inpatient ProtocolStart: 22-23-7978mros 2 puff(s) by mouth every four hours as neededalbuterol HFA 90 mcg/act inhaler Indications: Panlobular emphysema (HCC) INHALE 2 PUFFS BY MOUTH EVERY 4 HOURS NEEDED 25.5 g 5 07/05/2024 ActiveStart: 44-73-2925ualu 2 puff(s) by inhalation every four hours as needed2 puff, Inhalation, EVERY 4 HOURS PRN, Starting on Sun09/22/24 at 2025, Until Discontinued, Wheezing, Initiate RT Bronchodilator Protocol: Yes - Inpatient ProtocolStart: 04-07-2024 End: 28-17-4612ytpy 2 puff(s) by mouth every four hours as neededalbuterol HFA 90 mcg/act inhaler Indications: Panlobular emphysema (CMS/HCC) TAKE 2 PUFFS BY MOUTH EVERY 4 HOURS NEEDED 18 g 2 04/07/2024 07/05/2024 DiscontinuedStart: 09-20-2023 End: 73-13-8363exirrpaus (2.5 MG/3ML) 0.083% nebulizer solution Indications: Panlobular emphysema (HCC) Take 3 mL (2.5 mg) by nebulization every 4 (four) hours if needed for shortness of breath 75 mL 11 05/14/2025 ActiveStart: 68-29-2903vafmzishe 2.5 mg /3 mL (0.083 %) nebulizer solution 3 mL (2.5 mg) every 4 hours if needed. 09/20/2023 ActiveAlbuterol Sulfate (2.5 MG/3ML) 0.083% 1 unit dose Inhalation four times a day DX J44.9 COPD Activetake 1 puff(s) by inhalation every four hours as neededAlbuterol Sulfate HFA 108 (90 Base) MCG/ACT 1 puff as needed Inhalation every 4 hrs Activetake 1 puff(s) by inhalation every four hours as neededAlbuterol Sulfate HFA 108 (90 Base) MCG/ACT 1 puff as needed Inhalation every 4 hrs ActiveAlbuterol Sulfate (2.5 MG/ 3 ML) Activealendronic acid 70 mg oral tablet (20 sources)BisphosphonateStart: 04-03-2024 End: 49-40-7174xgelcvykszh (Fosamax) 70 MG tablet Indications: Age-related osteoporosis without current pathological fracture TAKE 1 TAB BY MOUTH ON EMPTY STOMACH WITH FULL GLASS OF WATER ONCE A WEEK.DO NOT TAKE ANYTHING ELSE OR LIE DOWN FOR NEXT 30 MINS. 12 tablet 3 12/29/2024 ActiveStart: 04-03-2024 End: 50-47-1605wfhj 1 tablet by mouth in the morningalendronate (Fosamax) 70 MG tablet Indications: Age-related osteoporosis without current pathological fracture (CMS/HCC) Take 1 tablet (70 mg) by mouth every 7 (seven) days Take in the morning with afull glass of water, on an empty stomach, and do not take anything else by mouth or lie down for the next 30 min. 4 tablet 11 04/03/2024 04/03/2025 Activeapixaban 5 mg oral tablet (20 sources)Factor Xa InhibitorStart: 75-41-3810sjiv 1 tablet by mouth at bedtimeapixaban (Eliquis) 5 MG tablet Indications: Paroxysmal atrial fibrillation (HCC) TAKE 1 TABLET (5 MG) BY MOUTH IN THE MORNING AND BEFORE BEDTIME 60 tablet 11 04/21/2025 ActiveStart: 04-03-2024 End: 34-22-1714bbqz 1 tablet by mouth in the morningapixaban (Eliquis) 5 MG tablet Indications: Paroxysmal atrial fibrillation (HCC) Take 1 tablet (5 mg) by mouth in the morning and 1 tablet (5 mg) before bedtime. 60 tablet 11 04/03/2024 Activeazithromycin 250 mg oral tablet (2 sources)Macrolide AntimicrobialStart: 10-20-2024 End: 30-11-8418zval 2 tablets by mouth once daily, then take 1 tablet by mouth once dailyazithromycin (Zithromax) 250 MG tablet Indications: COPD exacerbation (CMS/HCC) , Acute non-recurrent frontal sinusitis Take 2 tablets (500 mg) by mouth Daily for 1 day, THEN 1 tablet (250 mg) Daily for 4 days. 6 tablet 10/20/2024 10/24/2024 Activebrexpiprazole 0.25 mg oral tablet (11 sources)Atypical AntipsychoticStart: 02-12-2025 End: 43-76-7296bsbu 1 tablet by mouth once dailyBrexpiprazole (Rexulti) 0.25 MG tablet Indications: Moderate episode of recurrent major depressive disorder (HCC) Take 0.25 mg by mouth Daily 90 tablet 3 05/14/2025 ActiveCalcium Carb- Cholecalciferol (CALTRATE 600+D3 PO) (20 sources)Calcium Carb-Cholecalciferol (CALTRATE 600+D3 PO) Take by mouth 2 (two) times a day ActiveCALCIUM CARBONATE-VITAMIN D3 ORAL (2 sources)take 1 tablet by mouth in the morningCALCIUM CARBONATE-VITAMIN D3 ORAL 1 tablet early in the morning.. Activecholecalciferol 0.025 mg oral tablet (10 sources)Vitamin Dtake 1 tablet by mouth once dailycholecalciferol (Vitamin D-3) 25 MCG (1000 UT) tablet Take 1 tablet by mouth Daily ActiveclonazePAM 0.5 mg oral tablet (20 sources)BenzodiazepineStart: 02-12-2025 End: 57-97-2522nvyj 1 tablet by mouth every eight hours for anxietyclonazePAM (KlonoPIN) 0.5 MG tablet Indications: Generalized anxiety disorder Take 1 tablet (0.5 mg) by mouth every 8 (eight) hours if needed for anxiety 90 tablet 06/17/2025 07/17/2025 ActiveStart: 01-14-2024 End: 19-88-8011pcyp 1 tablet by mouth every eight hours for anxietyclonazePAM (KlonoPIN) 0.5 MG tablet Indications: Mixed anxiety and depressive disorder Take 1 tablet (0.5 mg) by mouth every 8 (eight) hours if needed for anxiety 90 tablet 01/01/2025 01/31/2025 Activetake 1 tablet by mouth every twenty-four hours clonazePAM 0.5 MG 1 tablet at bedtime Orally Once a day Activeferrous sulfate (6 sources)take 1 tablet by mouth in the morningFerrous Sulfate (IRON PO) Take 1 tablet by mouth in the morning. Fihozs70 actuat fluticasone propionate 0.25 mg/actuat / salmeterol 0.05 mg/actuat dry powder inhaler (13 sources)Corticosteroid, beta2-Adrenergic AgonistStart: 05-14-2025 End: 58-32-9502tcmz 1 puff(s) by inhalation onceFluticasone-Salmeterol (Advair Diskus) 250-50 MCG/ACT aerosol powder Indications: Panlobular emphysema (HCC) Inhale 1 puff every 12 (twelve) hours 3 each 3 05/14/2025 05/14/2026 Active Start: 79-47-6143rewi 1 puff(s) by inhalation in the morningFluticasone- Salmeterol (Wixela Inhub) 100-50 MCG/ACT aerosol powder Indications: Panlobular emphysema (CMS/HCC) Inhale 1 puff in the morning and 1 puff before bedtime. 1 each 11 09/20/2023 Activetake 1 puff(s) by inhalation twice dailyfluticasone- salmeterol (ADVAIR) 100-50 MCG/ACT AEPB diskus inhaler Inhale 1 puff into the lungs 2 times daily Activetake 1 puff(s) by inhalation twice dailyAdvair Diskus 250-50 MCG/ACT 1 puff Inhalation Twice a day Activelevothyroxine sodium 0.088 mg oral tablet (20 sources)l-ThyroxineStart: 11-64-3918vvbx 1 tablet by mouth once daily levothyroxine (Synthroid, Levoxyl) 88 MCG tablet Indications: Hypothyroidism, unspecified type TAKE1 TABLET BY MOUTH EVERY DAY 100 tablet 3 06/09/2025 Active Start: 73-48-3120sbot 1 tablet by mouth once dailylevothyroxine (Synthroid, Levoxyl) 88 MCG tablet Indications: Hypothyroidism, unspecified type TAKE1 TABLET BY MOUTH EVERY DAY 100 tablet 3 05/27/2024 Activetake 1 tablet by mouth once daily in the morningLevothyroxine Sodium 88 MCG 1 tablet in the morning on an empty stomach Orally Once a day Activeloratadine 10 mg oral capsule (20 sources)Loratadine (Claritin) 10 MG capsule Take by mouth Daily Activetake 1 tablet by mouth every twenty-four hours as neededloratadine (Claritin) 10 mg tablet Take 1 tablet (10 mg) by mouth once daily as needed for allergies. Active magnesium oxide 400 mg oral tablet (20 sources)Start: 05-14-2025 End: 08-75-7021xauh 1 tablet by mouth once dailymagnesium oxide (Mag-Ox) 400 MG tablet Indications: Hypomagnesemia Take 1 tablet (400 mg) by mouth Daily 90 tablet 3 05/14/2025 05/14/2026 ActiveStart: 04-28-2024 End: 80-22-1982pqzw 1 tablet by mouth once dailymagnesium oxide (Mag-Ox) 400 mg tablet Indications: Paroxysmal atrial fibrillation (Multi) Take 1 tablet (400 mg) by mouth once daily. 90 tablet 3 04/28/2024 04/28/2025 Active End: 48-60-3956Oaomfimdp Oxide (MAGOX 400 PO) Take by mouth Daily 05/14/2025 DiscontinuedMagnesium Oxide (MAGOX 400 PO) Take by mouth Daily Active methocarbamol 750 mg oral tablet (3 sources)Muscle RelaxantStart: 09-29-2024 End: 85-08-5131kzyi 1 tablet by mouth every eight hoursmethocarbamol (ROBAXIN) 750 MG tablet Take 1 tablet by mouth every 8 (eight) hours for 10 days 30 tablet 09/29/2024 10/09/2024 ActiveStart: 73-35-6016lwfz 750 mg by mouth every six kmuxk822 mg, Oral, EVERY 6 HOURS, First dose (after last modification) on Sun09/25/24 at 1100, Until DiscontinuedStart: 09-22-2024 End: 42-11-3159lpky 750 mg by mouth every eight mg, Oral, EVERY 8 HOURS, First dose on Sun09/22/24 at 2045, Until DiscontinuedmethylPREDNISolone (1 source)CorticosteroidStart: 10-27-2024 End: 33-62-9339zmfzhiDBGAVTPmofpr (Medrol Dospak) 4 MG tablets Indications: Chronic obstructive pulmonary disease,unspecified COPD type (CMS/HCC) Follow schedule on package instructions 21 tablet 10/27/2024 11/03/2024 Jdsxjp08 hr metoprolol succinate 25 mg extended release oral tablet (20 sources)beta-Adrenergic BlockerStart: 22-58-4341ydrd 1 tablet by mouth once daily in the morningmetoprolol succinate XL (Toprol-XL) 25 MG 24 hr tablet Indications: Longstanding persistent atrial fibrillation (HCC) TAKE 1 TABLET BY MOUTH EVERY DAY IN THE MORNING 90 tablet 3 04/30/2025 ActiveStart: mg, IntraVENous, EVERY 4 HOURS PRN, Starting on Sun09/26/24 at 2222, Until Discontinued, High Blood Pressure, SBP > 150, DO NOT ADMINISTER IF HEART RATE LESS THAN 60Start: mg, IntraVENous, EVERY 6 HOURS PRN, Starting on Sun09/22/24 at 2214, Until Discontinued, Tachycardia, Sustained heart rate greater than 120Start: 09-22-2024 End: mg, IntraVENous, ONCE, 1 dose, On Sun09/22/24 at 1930Start: 56-00-9647nlwc 1 tablet by mouth once daily in the morningmetoprolol succinate XL (Toprol-XL) 25 MG 24 hr tablet Indications: Longstanding persistent atrial f ibrillation (HCC) TAKE 1 TABLET BY MOUTH EVERY DAY IN THE MORNING 90 tablet 3 05/13/2024 ActiveMultiple Vitamin (multivitamin) tablet (9 sources)take 1 tablet by mouth once dailyMultiple Vitamin (multivitamin) tablet Take 1 tablet by mouth Daily Ekzhjyratdcmht-bdz-frlr-FA-vit K-lut (Centrum Silver Women) 8 mg iron-400 mcg-50 mcg tablet (2 sources)ugczplvh-xma-afpm-FA-vit K-lut (Centrum Silver Women) 8 mg iron-400 mcg-50 mcg tablet 1 tablet early in the morning.. ActiveNirmatrelvir&Ritonavir 300/100 (Paxlovid, 300/100,) 20 x 150 MG & 10 x 100MG tablet therapypack (1 source)Start: 42-92-0558Yjbceaautyxs&Ritonavir 300/100 (Paxlovid, 300/100,) 20 x 150 MG & 10 x 100MG tablet therapypack Indications: COVID Take 3 tablets by mouth in the morning and 3 tablets before bedtime. Take as package directs. Disp 1 package. 1 each 05/08/2024 Activenitrofurantoin, macrocrystals 25 mg / nitrofurantoin, monohydrate 75 mg oral capsule (2 sources)Nitrofuran AntibacterialStart: 09-29-2024 End: 93-61-8808qfgi 1 capsule by mouth every twelve hoursnitrofurantoin, macrocrystal-monohydrate, (MACROBID) 100 MG capsule Take 1 capsule by mouth every 12 hours for 5 doses 5 capsule 09/29/2024 10/02/2024 ActiveStart: 09-28-2024 End: 65-65-8742879 mg, Oral, EVERY 12 HOURS SCHEDULED (2 times per day), 6 doses, First dose on Sun09/28/24 at 2100, Last dose on Sun10/01/24 at 0900, Antimicrobial Indications: Urinary Tract Infection, UTI duration of therapy: 3 daysondansetron (ZOFRAN-ODT) disintegrating tablet 4 mg (1 source)Start: 26-06-4191vsdieidydmw (ZOFRAN-ODT) disintegrating tablet 4 mg oxyCODONE hydrochloride 5 mg oral tablet (4 sources)Opioid AgonistStart: 09-27-2024 End: 10-72-5672smkz 1 tablet by mouth every six hours as needed for pain oxyCODONE (ROXICODONE) 5 MG immediate release tablet Indications: Acute postoperative pain Take 1 tablet by mouth every 6 hours as needed for Pain for up to 7 days. Max Daily Amount: 20 mg 28 tablet 09/29/2024 10/06/2024 Active Start: 09-22-2024 End: 25-39-8060ouyf 5 mg by mouth every four hours as needed for pain5 mg, Oral, EVERY 4 HOURS PRN, Starting on Megan 09/25/24 at 0635, Until 09/27/24 at 0626, Pain Moderate (4-6)Oxygen (19 sources)oxygen (O2) gas Inhale 2 L/min continuously via nasal canula Active OXYGEN Inhale 2-3 L into the lungs Activeoxygen (O2) gas therapy (2 sources)oxygen (O2) gas therapy Inhale 1 each continuously. 3 LPM Active predniSONE 10 mg oral tablet (2 sources)Start: 05-14-2025 End: 15-20-0698swou 1 tablet by mouth three times daily, then take 1 tablet by mouth twice daily, then take 1 tablet by mouth once dailypredniSONE (Deltasone) 10 MG tablet Indications: Rhus dermatitis Take 1 tablet (10 mg) by mouth 3 (t hree) times a day for 3 days, THEN 1 tablet (10 mg) 2 (two) times a day for 3 days, THEN 1 tablet (10 mg) Daily for 3 days. 18 tablet 05/14/2025 05/23/2025 Activesodium phosphate 9.06 mmol in sodium chloride 0.9 % 250 mL IVPB (1 source)Start: 53-46-5872khuiuf phosphate 9.06 mmol in sodium chloride 0.9 % 250 mL IVPBtiotropium 0.018 mg inhalation powder (20 sources)AnticholinergicStart: 11-04-2024 End: 25-52-2975owth 1 capsule by inhalation in the morningtiotropium (Spiriva HandiHaler) 18 MCG inhalation capsule Indications: Acute exacerbation of chronic obstructive airways disease (HCC) Place 1 capsule (18 mcg) into inhaler and inhale in the morning.100 capsule 3 05/14/2025 ActiveStart: puff, Inhalation, DAILY RESP, First dose on Sun09/23/24 at 0800, Until Discontinued, Substitutedfor Tiotropium (SPIRIVA HANDIHALER).Start: 70-12-0848jebm 1 capsule by inhalation in the morningtiotropium (Spiriva HandiHaler) 18 MCG inhalation capsule Indications: Acute exacerbation of chronic obstructive airways disease (CMS/HCC) Place 1 capsule (18 mcg) into inhaler and inhale in the morning. 100 capsule 3 10/18/2023 Activetake 1 capsule by inhalation once dailytiotropium (SPIRIVA) 18 MCG inhalation capsule Inhale 1 capsule into the lungs daily Active take 1 capsule by inhalation in the morningtiotropium (Spiriva) [address] 1 CAPSULE (18 MCG) INTO INHALER AND INHALE IN THE MORNING Activetake 1 capsule by inhalation once dailySpiriva HandiHaler 18 MCG 1 capsule Inhalation Once a day ActivetraMADol hydrochloride 50 mg oral tablet (18 sources)Opioid AgonistStart: 04-20-2025 End: 67-59-7681cebz 1 tablet by mouth every eight hours for paintraMADol (Ultram) 50 MG tablet Indications: 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) Take 1 tablet (50 mg) by mouth every 8 (eight) hours if needed for severe pain 90 tablet 07/08/2025 08/07/2025 ActiveStart: 12-03-2024 End: 16-30-2923carw 1 tablet by mouth every eight hours for paintraMADol (Ultram) 50 MG tablet Indications: Age-related osteoporosis without current pathological fracture (CMS/HCC) Take 1 tablet (50 mg) by mouth every 8 (eight) hours if needed for severe pain 90 tablet 12/03/2024 01/02/2025 ActiveStart: 03-07-2024 End: 02-03-9601gbhl 1 tablet by mouth every eight hours for paintraMADol (Ultram) 50 MG tablet Indications: Age-related osteoporosis without current pathological fracture (CMS/HCC) Take 1 tablet (50 mg) by mouth every 8 (eight) hours if needed for severe pain 90 tablet 05/05/2024 06/04/2024 ActiveTRAMADOL HCL PO Take 1 tablet by mouth every 8 hours as needed (pain). Max Daily Amount: 3 tablets Activetriamcinolone acetonide 1 mg/ml topical cream (2 sources)CorticosteroidStart: 05-14-2025 End: 82-54-2533uzjvfclwfzmub (Kenalog) 0.1 % cream Indications: Rhus dermatitis Apply topically 2 (two) times a day as needed for rash for up to 14 days 30 g 1 05/14/2025 05/28/2025 Active Completed/Discontinued Medications MedicationDrug Class(es)DatesSig (Normalized)Sig (Original)albuterol 0.833 mg/ml / ipratropium bromide 0.167 mg/ml inhalation solution (1 source)Anticholinergic, beta2-Adrenergic AgonistStart: 09-22-2024 End: 85-93-8554rlrd 1 dose by inhalation once1 Dose, Inhalation, ONCE, 1 dose, On Sun09/22/24 at 1300, Initiate RT Bronchodilator Protocol: No,STATStart: 09-22-2024 End: 26-05-5915abem 1 dose by inhalation once1 Dose, Inhalation, ONCE, 1 dose, On Sun09/22/24 at 1300, Initiate RT Bronchodilator Protocol: No,STATamLODIPine 5 mg oral tablet (4 sources)Dihydropyridine Calcium Channel BlockerStart: 06-11-2024 End: 56-04-2357likj 1 tablet by mouth once dailyamLODIPine (NORVASC) 5 MG tablet Take 1 tablet by mouth daily 06/11/2024 09/08/2024 Discontinued (LIST CLEANUP)60 actuat budesonide 0.08 mg/actuat / formoterol fumarate 0.0045 mg/actuat metered dose inhaler (1 source)Corticosteroid, beta2-Adrenergic AgonistStart: puff, Inhalation, 2 TIMES DAILY RESP, First dose on Sun09/22/24 at 2230, Until Discontinued, Substituted for fluticasone-salmeterol (ADVAIR DISKUS or WIXELA INHUB).ceFAZolin (ANCEF) 2000 mg in 20 mL IV syringe (1 source)Start: 09-22-2024 End: 78-70-5741zusj 2000 mg intravenously every eight hours2,000 mg, IntraVENous, Every 8 hours, First dose on Sun09/22/24 at 2045, For 3 doses, Administer over 5 mins.5 ml dilTIAZem hydrochloride 5 mg/ml injection (1 source)Calcium Channel BlockerStart: 09-27-2024 End: 05-01-497786 mg, IntraVENous, ONCE, 1 dose, On 09/27/24 at 0030, Administer over at least 2 minutes.Start: 09-27-2024 End: 24-97-316783 mg, IntraVENous, ONCE, 1 dose, On 09/27/24 at 0030, Administer over at least 2 minutes.0.4 ml enoxaparin sodium 100 mg/ml prefilled syringe (1 source)Low Molecular Weight HeparinStart: 09-23-2024 End: 45-81-5538vrxyvj 40 mg by subcutaneous injection once daily40 mg, SubCUTAneous, DAILY, First dose on Sun09/23/24 at 0900, Until Discontinued, Indication of Use: Prophylaxis-DVT/PE, Administer by deep subCUTAneous injection with pt lying down. Alternate injection sites on abdominal wall. Do not rub site after injection. Check with provider prior to any invasive procedure. escitalopram 10 mg oral tablet (20 sources)Serotonin Reuptake InhibitorStart: 95-68-8503jveo 20 mg by mouth once daily20 mg, Oral, DAILY, First dose on Sun09/22/24 at 204, Until DiscontinuedStart: 08-17-2023 End: 94-60-0289jtvi 1 tablet by mouth once dailyescitalopram (Lexapro) 20 MG tablet Indications: Other specified anxiety disorders TAKE 1 TABLET BYMOUTH EVERY DAY 90 tablet 4 08/11/2024 Activefamotidine 20 mg oral tablet (1 source)Histamine-2 Receptor AntagonistStart: 36-31-0638tfxr 20 mg by mouth twice daily20 mg, Oral, 2 TIMES DAILY, First dose on Sun09/25/24 at 0900, Until Discontinuedfluticasone-salmeterol, sensor, (AirDuo Digihaler) 113-14 MCG/ACT inhaler (20 sources)Start: 12-03-2024 End: 47-68-3820wcjs 1 puff(s) by mouth in the morningfluticasone-salmeterol, sensor, (AirDuo Digihaler) 113-14 MCG/ACT inhaler Indications: Chronic obstr uctive pulmonary disease, unspecified COPD type (HCC) Inhale 1 puff in the morning and 1 puff before bedtime. Rinse mouth with water after use to reduce aftertaste and incidence of candidiasis. Do not swallow.. 1 each 5 12/03/2024 05/14/2025 Discontinued (Availability)Start: 87-52-5533ccpn 1 puff(s) by mouth in the morningfluticasone-salmeterol, sensor, (AirDuo Digihaler) 113-14 MCG/ACT inhaler Indications: Chronic obstructive pulmonary disease, unspecified COPD type (HCC) Inhale 1 puff in the morning and 1 puff before bedtime. Rinse mouth with water after use to reduce aftertaste and incidence of candidiasis. Do not swallow.. 1 each 5 12/03/2024 ActiveStart: 04-38-3854ptsh 1 puff(s) by mouth in the morningfluticasone-salmeterol, sensor, (AirDuo Digihaler) 113-14 MCG/ACT inhaler Indications: Chronic obstructive pulmonary disease, unspecified COPD type (CMS/HCC) Inhale 1 puff in the morning and 1 puff before bedtime. Rinse mouth with water after use to reduce aftertaste and incidence of candidiasis. Do not swallow.. 1 each 5 12/03/2024 Active End: 08-52-0853urfj 1 puff(s) by mouth in the morningfluticasone-salmeterol, sensor, (AirDuo Digihaler) 113-14 MCG/ACT inhaler Inhale 1 puff in the morning and 1 puff before bedtime. Rinse mouth with water after use to reduce aftertaste and incidence of candidiasis. Do not swallow.. 12/03/2024 Discontinued (Reorder) take 1 puff(s) by mouth in the morningfluticasone-salmeterol, sensor, (AirDuo Digihaler) 113-14 MCG/ACT inhaler Inhale 1 puff in the morning and 1 puff before bedtime. Rinse mouth with water after use to reduce aftertaste and incidence of candidiasis. Do not swallow.. Vpewsm85 hr guaiFENesin 600 mg extended release oral tablet (1 source)Start: 83-96-4410dszq 600 mg by mouth twice weqxj713 mg, Oral, 2 TIMES DAILY, First dose on Sun09/25/24 at 1230, Until Discontinued, Do not crush or b reak.1 ml HYDROmorphone hydrochloride 1 mg/ml cartridge (1 source)Opioid AgonistStart: 09-22-2024 End: 74-94-8550gaao 0.5 mg by mouth every four hours as needed for pain0.5 mg, IntraVENous, EVERY 4 HOURS PRN, Starting on Sun09/22/24 at 2024, Until Sun09/27/24 at 0626,Pain Severe (7-10), If oral and IV narcotics ordered, use oral first and only use IV if oral is ineffective or cannot take oral. Do Not give oral and IV within 1 hour of each other unless specifically ordered.ibuprofen 600 mg oral tablet (1 source)Nonsteroidal Anti-inflammatory DrugStart: 09-32-8922kwyi 600 mg by mouth every six mg, Oral, EVERY 6 HOURS, First dose on Sun09/29/24 at 0800, Until Discontinued1 ml ketorolac tromethamine 15 mg/ml cartridge (1 source)Nonsteroidal Anti-inflammatory Drug, Cyclooxygenase InhibitorStart: 09-25-2024 End: 22-38-188053 mg, IntraVENous, EVERY 6 HOURS, 20 doses, First dose on Sun09/25/24 at 0700, Last dose on Sun09/30/24 at 0100, Do not administer for more than 5 days.100 ml magnesium sulfate 10 mg/ml injection (3 sources)Start: 09-24-2024 End: ,000 mg, IntraVENous, at 100 mL/hr, Administer over 1 Hours, ONCE, On Sun09/24/24 at 1100, For 1 dose, Recommended infusion rate not to exceed 1,000 mg (milligrams) per hour.Start: 09-23-2024 End: ,000 mg, IntraVENous, at 25 mL/hr, Administer over 2 Hours, ONCE, On Sun09/23/24 at 0645, For 1 dose, Recommended infusion rate not to exceed 1,000 mg (milligrams) per hour.Start: ml metoclopramide 5 mg/ml prefilled syringe (2 sources)Dopamine-2 Receptor AntagonistStart: 09-25-2024 End: mg, IntraVENous, EVERY 6 HOURS, 4 doses, First dose (after last modification) on Sun09/27/24 at 1300, Last dose on Sun09/28/24 at 0700, IV Push: Max 10 mg over 1-2 minutes.100 ml metroNIDAZOLE 5 mg/ml injection (2 sources)Nitroimidazole AntimicrobialStart: 09-22-2024 End: 98-02-1143243 mg, IntraVENous, EVERY 8 HOURS, 3 doses, First dose on Sun09/22/24 at 2045, Last dose on Sun09/23/24 at 1245, Antimicrobial Indications: Surgical ProphylaxisStart: 09-22-2024 End: 16-58-8881669 mg, IntraVENous, ONCE, 1 dose, On Sun09/22/24 at 1130, Antimicrobial Indications: Surgical Prophylaxis, Pre-op (day of surgery), STAT potassium bicarbonate 20 meq effervescent oral tablet (1 source)Start: 09-23-2024 End: 61-33-2973hlpi 3-4 tablets by mouth once40 mEq, Oral, ONCE, 1 dose, On Sun09/23/24 at 0645, Do not chew or crush. Dissolve flavored tablets completely in 3 to 4 ounces of cold water; unflavored tablets may be dissolved in 3 to 4 ounces ofcold juice. Patient to sip slowly over a 5 to 10 minute period. May further dilute if GI adverse effects occur.microencapsulated potassium chloride 20 meq extended release oral tablet (1 source)Start: 03-41-722397 mEq, Oral, 2 TIMES DAILY, First dose on Sun09/24/24 at 1100, Until Discontinued, Do not crush, chew, or suck on tablet. Tablet may also be broken in half and each half swallowed separately.potassium phosphate 10 mmol in sodium chloride 0.9 % 250 mL IVPB (1 source)Start: 09-24-2024 End: 04-20-382807 mmol, IntraVENous, at 125 mL/hr, Administer over 120 Minutes, ONCE, On Sun09/24/24 at 1915, For 1dosepotassium phosphate 30 mmol in sodium chloride 0.9 % 500 mL IVPB (1 source)Start: 09-24-2024 End: mmol, IntraVENous, at 83.3 mL/hr, Administer over 360 Minutes, ONCE, On Sun09/24/24 at 1100, For 1 dosesimethicone 80 mg chewable tablet (1 source)Start: 57-36-7764irgb 80 mg by mouth every six hours as wqxxbo17 mg, Oral, EVERY 6 HOURS PRN, Starting on Sun09/25/24 at 1141, Until Discontinued, Gsqqzooj32 ml sodium chloride 9 mg/ml injection (7 sources)Start: 09-23-2024 End: 46-52-4194668 mL (4.68 mL/kg), IntraVENous, at 124 mL/hr, Administer over 121 Minutes, ONCE, On Sun09/23/24 at 0945, For 1 doseStart: 26-89-882373 mL, IntraVENous, EVERY 12 HOURS SCHEDULED (2 times per day), First dose on Sun09/22/24 at 2100,Until DiscontinuedStart: 34-01-0065Szsyi: 09-22-2024 End: 41-54-9103EiprhBEFzqc, at 125 mL/hr, CONTINUOUS, Starting on Sun09/22/24 at 2100sodium phosphate 30 mmol in sodium chloride 0.9 % 500 mL IVPB (1 source)Start: 09-25-2024 End: mmol, IntraVENous, at 83.3 mL/hr, Administer over 360 Minutes, ONCE, On Sun09/25/24 at 0700, For 1 dose Problems Active Problems Problem ClassificationProblemDateDocumented DateEpisodic/ChronicAllergic reactions (2 sources)Contact dermatitis due to Genus Toxicodendron; Translations: [Unspecified contact dermatitis due toplants, except food]76-31-7812Hoqyddlh Anxiety disorders (20 sources)Mixed anxiety and depressive disorder; Translations: [Other specified anxiety disorders]Onset: 707281-29-3681DueuhkcXxwflod dysrhythmias (20 sources)Unspecified atrial fibrillation; Translations: [Paroxysmal atrial fibrillation]Onset: 04-26-2022 Resolved: 963822-72-2969DfpsoqzSrimgbo obstructive pulmonary disease and bronchiectasis (20 sources)Chronic obstructive lung disease; Translations: [Chronic obstructive pulmonary disease, unspecified]Onset: 01-02-2022 Resolved: 59-07-6029GjdauqmZrbyfavxrpd and hemorrhagic disorders (20 sources)Hypercoagulability state; Translations: [Other thrombophilia]Onset: 598221-70-6679FxsfouwKcjygoew, dementia, and amnestic and other cognitive disorders (2 sources)Senile asthenia; Translations: [Age-related physical debility]Onset: 315017-43-9091EsogadoHflkacrre of lipid metabolism (20 sources)Pure hypercholesterolemia; Translations: [Pure hypercholesterolemia, unspecified]Onset: 03-06-2023 Resolved: 812983-97-0829VxluofaMtxoiwjdmaswvi and diverticulitis (15 sources)Diverticulitis; Translations: [Diverticulitis of intestine, part unspecified, without perforation or abscess without bleeding]Onset: 09-22-2024 05-17-9120MywuxotHwryfquyi hypertension (20 sources)Essential hypertension; Translations: [Essential (primary) hypertension]Onset: 113396-23-8670KtgybneLtguxhii disorders (2 sources)Disorder of immune function; Translations: [Disorder involving the immune mechanism, unspecified]44-65-6311RoeautcZbgbrfnbsr disorders (20 sources)Decreased estrogen level; Translations: [Other primary ovarian failure]Onset: 018621-03-0996BvhumlrStfh disorders (3 sources)Major depressive disorder, single episode, unspecified; Translations: [Moderate recurrent major depression]Onset: 684731-84-4782CxmzerfYdwlphrit of unspecified nature or uncertain behavior (20 sources)Essential thrombocythemia; Translations: [Essential (hemorrhagic) thrombocythemia]Onset: 688549-26-6742WaetxrxVbsvilgsktc chest pain (1 source)Chest pain, unspecified; Translations: [CHEST PAIN UNSPECIFIED]Onset: 15-48-8559SdkodzzzRgakpxdriei deficiencies (1 source)Moderate protein-calorie malnutrition; Translations: [MODERATE PROTEIN-CALORIE MLNUTRIT]Onset: 29-90-6475HnimywnCkjhiidiynvl (2 sources)Senile osteoporosis; Translations: [Age-related osteoporosis without current pathological fracture]63-71-0895PynulgtZysmv aftercare (2 sources)Post-discharge follow-up; Translations: [Encounter for follow-up examination after completed treatment for conditions other than malignant neoplasm]11-71-9541WgghsizxGvmkj endocrine disorders (1 source)Syndrome of inappropriate secretion of antidiuretic hormone; Translations: [SYNDROME INAPPROPRIATE SEC ADH]Onset: 40-19-1766HrhvrmrMuawn gastrointestinal disorders (20 sources)Colostomy present; Translations: [Colostomy status]Onset: 06-09-2024 08-36-7716YyvykxoDqhje gastrointestinal disorders (1 source)Colostomy status; Translations: [Colostomy status]Onset: 07-18-2024 ChronicOther gastrointestinal disorders (2 sources)Personal history of other diseases of the digestive system; Translations: [Personal history of other diseases of digestive system]06-26-2024 EpisodicOther liver diseases (1 source)Chronic passive congestion of liver; Translations: [CHRONIC PASSIVE CONGESTION OF LIVER]Onset: 78-41-3681NafmnitKzlon lower respiratory disease (2 sources)Other disorders of lungOnset: 01-02-2022 Resolved: 58-52-8142XhnzwvtgSkzye lower respiratory disease (6 sources)Shortness of breath; Translations: [SHORTNESS OF BREATH]Onset: 73-29-2221SlrdhtlcNotfq nervous system disorders (1 source)Acute postoperative pain; Translations: [Other acute postprocedural pain]52-03-4126PcxlclemEqqth nervous system disorders (1 source)Other acute postprocedural pain; Translations: [Other acute postprocedural pain]Onset: 87-86-7206VkgjgowxZpqkc nutritional; endocrine; and metabolic disorders (8 sources)Hypomagnesemia; Translations: [Hypomagnesemia]Onset: 05-14-2025 32-48-4805FoxberlJiejh screening for suspected conditions (not mental disorders or infectious disease) (13 sources)Abnormal findings on diagnostic imaging of other abdominal regions, including retroperitoneum; Translations: [Other specified abnormal findings of blood chemistry]Onset: 609891-05-3558VqoqyfmuYsnhx upper respiratory infections (2 sources)Acute frontal sinusitis; Translations: [Acute frontal sinusitis, unspecified]92-21-1850JrpeflopWogigtxaou and visceral atherosclerosis (20 sources)Atherosclerosis of aorta; Translations: [Atherosclerosis of aorta] Onset: 448721-66-5974JemmnovIvcuosydw (except that caused by tuberculosis or sexually transmitted disease) (2 sources)Pneumonia, unspecified organism; Translations: [PNEUMONIA UNSPECIFIED ORGANISM]Onset: 23-95-9035FtoftcsnMelhnswl codes; unclassified (1 source)Sleep apnea, unspecified; Translations: [SLEEP APNEA UNSPECIFIED] Onset: 93-72-4593PzzftbjXyeizmfl codes; unclassified (20 sources)Obstructive sleep apnea syndrome; Translations: [Obstructive sleep apnea (adult) (pediatric)]Onset: 648253-57-8494XsqacizGoykddcp codes; unclassified (2 sources)Body mass index 20-24 - normal; Translations: [Body mass index (BMI) 22.0-22.9, adult]Onset: 765670-23-3357PwgiwitrPphqlzry codes; unclassified (2 sources)Body mass index (BMI) 22.0-22.9, adult; Translations: [Body mass index (BMI) 22.0-22.9, adult]Onset: 48-08-5188HkhsrjalZeguqzok codes; unclassified (2 sources)Past history of procedure; Translations: [Other specified postprocedural states]67-54-2861ZfbxugpoYigwfatixjy failure; insufficiency; arrest (adult) (20 sources)Chronic respiratory failure with hypoxia; Translations: [Dependence on supplemental oxygen]Onset: 034100-10-1716RffcxstQuuemjuzkg arthritis and related disease (20 sources)Rheumatoid arthritis, unspecified; Translations: [Rheumatoid arthritis of multiple joints]Onset: 355266-43-3881OyqxvwzPtyxkwd disorders (20 sources)Hypothyroidism, unspecified; Translations: [Acquired hypothyroidism] Onset: 331989-41-9635UuofgyfTprjfkwfczpg (1 source)COUGH, UNSPECIFIED; Translations: [COUGH, UNSPECIFIED]Onset: 61-21-2485Iwtsukunvbos (1 source)CONTACT W/AND (SUSP) EXPOS COVID-19; Translations: [CONTACT W/AND (SUSP) EXPOS COVID-19]Onset: 04-26-2022 Past or Other Problems Problem ClassificationProblemDateDocumented DateEpisodic/ChronicAbdominal pain (1 source)Lower abdominal pain, unspecified; Translations: [LOWER ABDOMINAL PAIN UNSPECIFIED]Onset: 14-62-4921PxsuvrghTfvrqlvwzilxpa/social admission (4 sources)Patient encounter status; Translations: [Person consulting for explanation of examination or test findings]Onset: 057106-86-2932Tcscewsm Conditions associated with dizziness or vertigo (7 sources)Lightheadedness; Translations: [Dizziness and giddiness]Onset: 336996-67-7408ErrwxvkkXhwnp and electrolyte disorders (20 sources)Hypo-osmolality and hyponatremia; Translations: [Hypokalemia]Onset: 65-65-5632JbkckecsDrljdbidhotei and screening for infectious disease (20 sources)Hepatitis C antibody test positive; Translations: [Other specified abnormal immunological findings in serum]Onset: 244761-46-0281Lvfitsgp Intestinal obstruction without hernia (6 sources)Small bowel obstruction; Translations: [Unspecified intestinal obstruction, unspecified as to partial versus complete obstruction]Onset: 06-07-2024 Resolved: 752887-40-4962GefragirGiwr disorders (9 sources)Mood disordersOnset: 781573-91-1914Lrhifzyknwvji gastroenteritis (1 source)Noninfective gastroenteritis and colitis, unspecified; Translations: [NONINFECTIVE GE AND COLITIS UNS]Onset: 52-63-8377QgslsswnTbwvn aftercare (1 source)Other freight solicitor (current) drug therapy; Translations: [OTH LONG-TERM CURRENT DRUG THERAPY]Onset: 20-76-3270KlcuybxkHpazu aftercare (1 source)jboss architect (current) use of anticoagulants; Translations: [CHUTE PULLER CURRNT USE ANTICOAGULANTS]Onset: 83-85-8937DajfpwgfRtnti connective tissue disease (1 source)Muscle weakness (generalized); Translations: [MUSCLE WEAKNESS GENERALIZED]Onset: 80-07-3563HvgzfvpeQryqm connective tissue disease (20 sources)Muscle pain; Translations: [Myalgia, unspecified site]Onset: 565097-67-5657KqqyqpapRgkvx connective tissue disease (4 sources)Myalgia, unspecified site; Translations: [Myalgia, unspecified site] Onset: 90-02-4008TdifseezJqapc female genital disorders (20 sources)Rectovaginal fistula; Translations: [Fistula of vagina to large intestine]Onset: 03-06-2023 Resolved: 652593-27-0179TwrybonRndvy female genital disorders (15 sources)Colovaginal fistula; Translations: [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]Onset: 06-07-2024 Resolved: 795071-84-5361VolbjkqJcaas gastrointestinal disorders (1 source)Constipation, unspecified; Translations: [CONSTIPATION UNSPECIFIED] Onset: 98-71-6196LshvovtaCqgsf gastrointestinal disorders (1 source)Disease of intestine, unspecified; Translations: [DISEASE OF INTESTINE UNSPECIFIED]Onset: 58-22-2778PzslvmxyWqkbn injuries and conditions due to external causes (20 sources)At high risk for fall; Translations: [History of falling]Onset: 398578-83-7039ZjypgkvtGmgmj injuries and conditions due to external causes (2 sources)History of falling; Translations: [History of falling]Onset: 98-97-0455XjgonlzmIaddb lower respiratory disease (7 sources)Other nonspecific abnormal finding of lung field; Translations: [OTH NONSPECIFIC ABN FIND LNG FIELD]Onset: 01-02-2022 Resolved: 38-66-6741BfpxpatyNlyru lower respiratory disease (3 sources)Personal history of pneumonia (recurrent); Translations: [PERSONAL HX OF PNEUMONIA RECURRENT]Onset: 04-26-2022 Resolved: 09-00-2633ZxdadyqnIjtps lower respiratory disease (1 source)Hemoptysis; Translations: [HEMOPTYSIS]Onset: 44-83-5670WybfqclsJtcvy lower respiratory disease (20 sources)Nodule of lung; Translations: [Solitary pulmonary nodule]Onset: 059923-00-5090FqsudkpsFfdbw lower respiratory disease (19 sources)Dyspnea; Translations: [Shortness of breath]Onset: 09-04-2024 31-24-0350AmysxwvtPukqs screening for suspected conditions (not mental disorders or infectious disease) (20 sources)Plain X-ray result abnormal; Translations: [Abnormal findings on diagnostic imaging of other specified body structures]Onset: 03-06-2023 Resolved: 320686-08-3065BlqodrfVzlwngfj codes; unclassified (1 source)Tobacco useOnset: 01-02-2022 Resolved: 44-01-6315WvxxjzddCjukoyie codes; unclassified (1 source)Acquired absence of both cervix and uterus; Translations: [ACQUIRED ABSENCE BOTH CERVIX AND UTERUS]Onset: 87-60-5700CnmgnobxCfeyucxn codes; unclassified (1 source)Body mass index (BMI) 20.0-20.9, adult; Translations: [BODY MASS INDEX BMI 20.0-20.9 ADULT]Onset: 99-10-1207DnqdynpcGthszxtzp and history of mental health and substance abuse codes (20 sources)Personal history of nicotine dependence; Translations: [Ex-cigarette smoker]Onset: 962026-16-1221CgpveeeaExpigoowox (except in labor) (4 sources)Sepsis, unspecified organism; Translations: [Severe sepsis without septic shock]Onset: 48-05-1577HuvfrzwkWwxcxdnml-related disorders (20 sources)Nicotine dependence, cigarettes, uncomplicated; Translations: [Tobacco dependence caused by cigarettes]Onset: 04-10-2022 Resolved: 190514-34-1362ObnyixhJaevbjmczne injury; contusion (1 source)Contusion of abdominal wall, initial encounter; Translations: [CONTUSION ABDOMINAL WALL INITIAL]Onset: 11-23-2147YtlcehanUazpftqpukta (2 sources)Onset: 04-28-2024 Resolved: Results Test NameValueInterpretationReference RangeFacilityCT LUNG SCREENING LOW DOSEon 21-13-[place]288Q[place], [place] [address] [place] Scan Report Signed Patient: LILLIAM BAJWA MR#: [id number] : 1955 Acct:[id number] Age/Sex: 69 / F ADM Date: 04/17/25 Loc: CT Attending Dr: BASIA OREILLY Ordering Physician: BASIA OREILLY Date of Service: 04/17/25 Procedure(s): CT lung screening low-dose Accession Number(s): [id number] cc: JEREMIAS LOPEZ [place] [id number] Patient Name: LILLIAM BAJWA MRN: [id number] date: 1955 Sex: F Assigned Patient Location: CT Current Patient Location: CT Accession/Order Number: [id number] Exam Date: 04/17/2025 15:07 Report Date: 04/17/2025 15:27 At the request of: BASIA OREILLY Procedure: CT lung screening low-dose CT CHEST WITHOUT CONTRAST, LOW DOSE SCREENING: CLINICAL DATA: A 69-year old former smoker, COMPARISON: CT chest 08/07/2023 TECHNIQUE: Noncontrast axial CT scan images of the chest were obtained under the low dose screening CT protocol. Coronal and sagittal reconstructed images were also submitted. FINDINGS: Mediastinum : Suboptimal evaluation due to low-dose technique. Thoracic aorta appears normal in caliber. Pulmonary trunk appears nondilated. No pericardial effusion. No lymphadenopathy. The esophagus is grossly unremarkable. Lungs: No focal consolidation, pneumothorax or pleural effusion. Trachea and distal airways appear patent. Debris within the trachea. There is emphysematous changes. Diffuse bronchial wall thickening. Scattered lung scarring. No suspicious noncalcified pulmonary nodule or mass. Upper abdomen: No acute findings. Bony thorax and chest wall: Soft tissues surrounding the chest wall demonstrate no acute findings. Osseous structures demonstrate degenerative change. CT/CT lung screening low-dose IMPRESSION: NO SUSPICIOUS PULMONARY NODULE OR MASS. LUNG - RADS Version 1.0 Assessment: Category 1, Negative (No nodules and definitely benign nodules). Management: Continue annual lung screening with LDCT in 12 months. Impression dictated by: Bernard Witt Jr., D.O. 04/17/2025 3:27 PM Dictation Location: [place] [address] Electronically authenticated by: [id number] Y Date: 04/17/2025 15:27 Dictated By: Bernard Witt M.D. Signed By: 04/17/25 1530 DD/ 1527 TD/TT: Loading Machine Adjuster:TBHRadiology, Radiologist, - 04/17/2025 [place] [address] CT Scan Report Signed Patient: LILLIAM BAJWA MR#: [id number] : 1955 Acct:[id number] Age/Sex: 69 / F ADM Date: 04/17/25 Loc: CT Attending Dr: BASIA OREILLY Ordering Physician: BASIA OREILLY Date of Service: 04/17/25 Procedure(s): CT lung screening low-dose Accession Number(s): [id number] cc: JEREMIAS LOPEZ [place] [id number] Patient Name: LILLIAM BAJWA MRN: [id number] date: 1955 Sex: F Assigned Patient Location: CT Current Patient Location: CT Accession/Order Number: [id number] Exam Date: 04/17/2025 15:07 Report Date: 04/17/2025 15:27 At the request of: BASIA OREILLY Procedure: CT lung screening low-dose CT CHEST WITHOUT CONTRAST, LOW DOSE SCREENING: CLINICAL DATA: A 69-year old former smoker, COMPARISON: CT chest 08/07/2023 TECHNIQUE: Noncontrast axial CT scan images of the chest were obtained under the low dose screening CT protocol. Coronal and sagittal reconstructed images were also submitted. FINDINGS: Mediastinum : Suboptimal evaluation due to low-dose technique. Thoracic aorta appears normal in caliber. Pulmonary trunk appears nondilated. No pericardial effusion. No lymphadenopathy. The esophagus is grossly unremarkable. Lungs: No focal consolidation, pneumothorax or pleural effusion. Trachea and distal airways appear patent. Debris within the trachea. There is emphysematous changes. Diffuse bronchial wall thickening. Scattered lung scarring. No suspicious noncalcified pulmonary nodule or mass. Upper abdomen: No acute findings. Bony thorax and chest wall: Soft tissues surrounding the chest wall demonstrate no acute findings. Osseous structures demonstrate degenerative change. CT/CT lung screening low-dose IMPRESSION: NO SUSPICIOUS PULMONARY NODULE OR MASS. LUNG - RADS Version 1.0 Assessment: Category 1, Negative (No nodules and definitely benign nodules). Management: Continue annual lung screening with LDCT in 12 months. Impression dictated by: Bernard Witt Jr., D.O. 04/17/2025 3:27 PM Dictation Location: [place] [address] Electronically authenticated by: [id number] Y Date: 04/17/2025 15:27 Dictated By: Bernard Witt M.D. Signed By: 04/17/25 1530 DD/ 1527 TD/TT: Loading Machine Adjuster: [facility] HealthcareRadiology Study observation (narrative)NOM HealthcareCT LUNG SCREENING LOW DOSEOrdered By: Radiologist Radiology on 78-69-8222WJTQ [employer] Work Phone: mm TOMOSYNTHESIS SCREENING BIon 96-47-[place]28[place], [place] [address] Mammography Report Signed Patient: LILLIAM BAJWA MR#: [id number] : 1955 Acct:[id number] Age/Sex: 69 / F ADM Date: 04/17/25 Loc: CT Attending Dr: BASIA OREILLY Ordering Physician: BASIA OREILLY Results: Date of Service: 04/17/25 Follow Up: Procedure(s): MM tomosynthesis screening BI Accession Number(s): [id number] cc: JEREMIAS LOPEZ ; BASIA OREILLY Patient Name: LILLIAM BAJWA MR#: [id number] : 1955 Exam Date: 04/17/2025 Ordering Doctor: DR BASIA AKHTAR RADIOLOGY REPORT PROCEDURE: MM TOMOSYNTHESIS SCREENING BI COMPARISON: MM TOMOSYNTHESIS SCREENING BI, 07/04/2023. MG MAMM SCREEN 3D BENJAMIN CAD, 06/01/2021. MG MAMM SCREEN BENJAMIN W CAD, 02/24/2019. MAMMO BENJAMIN SCREEN, 12/05/2001. INDICATIONS: screening for malignant neoplasm of [...] lung cancer at age 39; Brother with lung cancer at age 53; Brother with liver cancer at age 49; Grandmother-paternal with colon cancer at age 60; Uncle-maternal with lung cancer at age 50; Nephew with lung cancer at age 47. LOCATION: [facility] BREAST COMPOSITION: The breasts are heterogeneously dense, which may obscure small masses. FINDINGS: RIGHT BREAST: No significant suspicious finding. LEFT BREAST: No significant suspicious finding. DIAGNOSTIC CATEGORY 1--NEGATIVE. RECOMMENDATIONS: ROUTINE MAMMOGRAM AND CLINICAL EVALUATION IN 12 MONTHS. PLEASE NOTE: A NORMAL MAMMOGRAM DOES NOT EXCLUDE THE POSSIBILITY OF BREAST CANCER. A CLINICALLY SUSPICIOUS PALPABLE LUMP SHOULD BE BIOPSIED. Dictated by: Albino Eagle MD on 04/17/2025 at 15:18 Approved by: Albino Eagle MD on 04/17/2025 at 15:22 Dictated By: Albino Eagle M.D. Signed By: 04/17/25 1523 DD/ 1522 TD/TT: Loading Machine Adjuster:TBHRadiology, Radiologist, - 04/17/2025 [place] [address] Mammography Report Signed Patient: LILLIAM BAJWA MR#: [id number] : 1955 Acct:[id number] Age/Sex: 69 / F ADM Date: 04/17/25 Loc: CT Attending Dr: BASIA OREILLY Ordering Physician: BASIA OREILLY Results: Date of Service: 04/17/25 Follow Up: Procedure(s): MM tomosynthesis screening BI Accession Number(s): [id number] cc: JEREMIAS LOPEZ ; BASIA OREILLY Patient Name: LILLIAM BAJWA MR#: [id number] : 1955 Exam Date: 04/17/2025 Ordering Doctor: DR BASIA AKHTAR RADIOLOGY REPORT PROCEDURE: MM TOMOSYNTHESIS SCREENING BI COMPARISON: MM TOMOSYNTHESIS SCREENING BI, 07/04/2023. MG MAMM SCREEN 3D BENJAMIN CAD, 06/01/2021. MG MAMM SCREEN BENJAMIN W CAD, 02/24/2019. MAMMO BENJAMIN SCREEN, 12/05/2001. INDICATIONS: screening for malignant neoplasm of [...] lung cancer at age 39; Brother with lung cancer at age 53; Brother with liver cancer at age 49; Grandmother-paternal with colon cancer at age 60; Uncle-maternal with lung cancer at age 50; Nephew with lung cancer at age 47. LOCATION: [facility] BREAST COMPOSITION: The breasts are heterogeneously dense, which may obscure small masses. FINDINGS: RIGHT BREAST: No significant suspicious finding. LEFT BREAST: No significant suspicious finding. DIAGNOSTIC CATEGORY 1--NEGATIVE. RECOMMENDATIONS: ROUTINE MAMMOGRAM AND CLINICAL EVALUATION IN 12 MONTHS. PLEASE NOTE: A NORMAL MAMMOGRAM DOES NOT EXCLUDE THE POSSIBILITY OF BREAST CANCER. A CLINICALLY SUSPICIOUS PALPABLE LUMP SHOULD BE BIOPSIED. Dictated by: Albino Eagle MD on 04/17/2025 at 15:18 Approved by: Albino Eagle MD on 04/17/2025 at 15:22 Dictated By: Albino Eagle M.D. Signed By: 04/17/25 1523 DD/ 1522 TD/TT: Loading Machine Adjuster: KAREEM HealthcareRadiology Study observation (narrative)[facility] TOMOSYNTHESIS SCREENING BIOrdered By: Radiologist Radiology on [id number] Work Phone: basic Metabolic Panelon [id number] gap [Moles/Vol]9 mmol/L9 - 16 mmol/LBon Secours Mercy HealthCalcium [Mass/Vol]8.8 mg/dL8.8 - 10.2 mg/dLBon Secours Mercy HealthChloride [Moles/Vol]99 mmol/L98 - 107 mmol/LBon Secours Mercy HealthCO2 [Moles/Vol]23 mmol/L20 - 31 mmol/LBon Secours Mercy HealthCreatinine [Mass/Vol]0.4 mg/dLLow0.50 - 0.90 mg/dLBon Secours Mercy HealthEst, Glom Filt Rate- PINFBon Parkwood HospitalCompontiac general hospital on above: These results are not intended for use in patients <18 years of age. eGFR results are calculated without a race factor using the 2020 CKD-EPI equation. Careful clinical correlation is recommended, particularly when comparing to results calculated using previous equations. The CKD-EPI equation is less accurate in patients with extremes of muscle mass, extra-renal metabolism of creatine, excessive creatine ingestion, or following therapy that affects renal tubular secretion. Glucose [Mass/Vol]93 mg/dL82 - 115 mg/dLBon Parkwood HospitalInterpretation and review of laboratory resultsAbnormalBon Parkwood HospitalPotassium [Moles/Vol]4.0 mmol/L3.7 - 5.3 mmol/LBon Parkwood HospitalSodium [Moles/Vol] 131 mmol/EFov234 - 145 mmol/LBon Parkwood HospitalUrea nitrogen [Mass/Vol]4 mg/dLLow8 - 23 mg/dLBon Parkwood HospitalBasic Metabolic Profon 09-29-2024 Anion gap [Moles/Vol]9 mmol/LNormal9-16[facility] HospitalCompontiac general hospital on above: Performed By: #### MG, HH #### [facility] [address] [place] [address] Mold Capper Helper: NATHALIA Agustinalcium [Mass/Vol]8.8 mg/dLNormal8.8-10.2[facility] HospitalCompontiac general hospital on above:Performed By: #### MG, HH #### [facility] [address] [place] [address] Mold Capper Helper: NATHALIA Agustinhloride [Moles/Vol]99 mmol/XSfxunq10-797EdaklLourdes Medical Center on above:Performed By: #### MG, HH #### [facility] [address] [place] [address] Mold Capper Helper: NATHALIA AgustinO2 [Moles/Vol]23 mmol/LTcqjth14-51DceqbLourdes Medical Center on above:Performed By: #### MG, HH #### [facility] [address] [place] [address] Mold Capper Helper: NATHALIA Agustinreatinine [Mass/Vol]0.4 mg/dLLow0.50-0.90[facility] on above:Performed By: #### MG, HH #### [facility] [address] [place] [address] Mold Capper Helper: Robel Francois MDGFR/1.73 sq M.predicted among non-blacks MDRD (S/P/Bld) [Vol rate/Area]mL/min/{1.73_m2}Normal>60[facility] HospitalCompontiac general hospital on above:Result Comment: These results are not intended for use in patients <18 years of age. eGFR results are calculated without a race factor using the 2020 CKD-EPI equation. Careful clinical correlation is recommended, particularly when comparing to results calculated using previous equations. The CKD-EPI equation is less accurate in patients with extremes of muscle mass, extra-renal metabolism of creatine, excessive creatine ingestion, or following therapy that affects renal tubular secretion.Performed By: #### MG, HH #### [facility] [place] [address] Mold Capper Helper: Robel Francois MDGlucose [Mass/Vol]93 mg/wHLusnrv82-667HcwcbCleveland Clinic Mentor HospitalCompontiac general hospital on above:Performed By: #### MG, HH #### [facility] [address] [place] [address] Mold Capper Helper: GREG Agustinotassium [Moles/Vol]4.0 mmol/LNormal3.7-5.3 [facility] on above:Performed By: #### MG, HH #### [facility] [address] [place] [address] Mold Capper Helper: VENESSA Agustinodium [Moles/Vol]131 mmol/GNal839-029KujahCleveland Clinic Mentor HospitalComment on above:Performed By: #### MG, HH #### [facility] [address] [place], [place] [id number] Mold Capper Helper: Robel Francois MDUrea nitrogen [Mass/Vol]4 mg/dLLow8-23[facility] HospitalComment on above:Performed By: #### MG, HH #### [facility] [address] [place] [address] Mold Capper Helper: Robel Francois [facility] CHEYENNEBC with Auto Differentialon 09-29-2024 Basophils (Bld) [#/Vol]0.04 10*3/uLBon Secours Mercy HealthBasophils/100 WBC (Bld)0 %0 - 2 %[facility] HealthEosinophils (Bld) [#/Vol]0.34 10*3/uLBon Secours Mercy HealthEosinophils/100 WBC (Bld)3 %1 - 4 %[facility] Erythrocyte distribution width (RBC) [Ratio]14.7 %High11.8 - 14.4 %[facility] HealthHematocrit (Bld) [Volume fraction]30.0 %Low36.3 - 47.1 %[facility] HealthHemoglobin (Bld) [Mass/Vol]10.3 g/dLLow11.9 - 15.1 g/dLBon Secours Mercy HealthImmature granulocytes (Bld) [#/Vol]0.07 10*3/uLBon Secours Mercy HealthImmature granulocytes/100 WBC (Bld)1 %Cucx2Iij Secours Mercy Health Interpretation and review of laboratory resultsAbnormalBon Secours [facility]cy Health Lymphocytes/100 WBC (Bld)10 %Low24 - 43 %[facility] HealthLymphocytes/100 WBC (Bld)1.33 %[facility] HealthMCH (RBC) [Entitic mass]29.8 pg25.2 - 33.5 pgBon Secours Mercy HealthMCHC (RBC) [Mass/Vol]34.3 g/dL28.4 - 34.8 g/dLBon Avita Health System Ontario HospitalV (RBC) [Entitic vol]86.7 fL82.6 - 102.[address] Mary'S HospitalMonocytes/100 WBC (Bld)10 %3 - 12 %[facility] Monocytes/100 WBC (Bld)1.30 %HighBon Secours St. Mary'S HospitalNeutrophils/100 WBC (Bld)76 %High36 - 65 %[facility]'S HospitalNucleated RBC/100 WBC (Bld) [Ratio]0.0 %0.[address] Mary'S HospitalPlatelet mean volume (Bld) [Entitic vol]9.3 fL8.1 - 13.[address] Mary'S HospitalPlatelets (Bld) [#/Vol] 487 10*3/uLHighBon Secours St. Mary'S HospitalRBC (Bld) [#/Vol]3.46 10*6/uLLow3.95 - 5.11 m/uLBon Secours St. Mary'S HospitalRBC (Bld) [#/Vol]ANISOCYTOSIS PRESENTBon Secours St. Mary'S HospitalSegmented neutrophils/100 WBC (Bld)10.01 %[facility] [place] at VCUWBC other (Bld) [#/Vol]13.1HighSentara Virginia Beach General HospitalCBC with Diffon [id number]. Basophil0.04 k/uLNormal0.00-0.20[facility] HospitalComment on above:Performed By: #### MG, #### [facility] [address] [place] [address] Mold Capper Helper: Farideh Agustin.Imm.Granulocyte0.07 k/uLNormal0.00-0.30 [facility] HospitalComment on above:Performed By: #### MG, #### [facility] [address] [place] [address] Mold Capper Helper: Farideh Agustin.Neutrophil (Seg)10.01 k/uLHigh1.50-8.10 [facility] HospitalComment on above:Performed By: #### MG, HH #### [facility] [address] [place] [address] Mold Capper Helper: Robel Francois MDBasophils/100 WBC (Bld)0 %Normal0-2[facility] HospitalComment on above:Performed By: #### MG, HH #### [facility] [address] [place] [address] Mold Capper Helper: Robel Francois MDEosinophils (Bld) [#/Vol]0.34 10*3/uLNormal 0.00-0.44[facility] HospitalCompontiac general hospital on above:Performed By: #### MG, HH #### [facility] [address] [place] [address] Mold Capper Helper: RUMA Agustinosinophils/100 WBC (Bld)3 %Normal1-4[facility] HospitalCompontiac general hospital on above:Performed By: #### MG, HH #### [facility] [address] [place] [address] Mold Capper Helper: Robel Francois MDErythrocyte distribution width (RBC) [Ratio] 14.7 %High11.8-14.4[facility] HospitalCompontiac general hospital on above:Performed By: #### MG, HH #### [facility] [address] [place] [address] Mold Capper Helper: Robel Francois MDHematocrit (Bld) [Volume fraction]30.0 %Low 36.3-47.1[facility] HospitalComment on above:Performed By: #### MG, HH #### [facility] [address] [place], [place] [address], [place] [address] Mold Capper Helper: Robel Francois MDHemoglobin (Bld) [Mass/Vol]10.3 g/dLLow 11.9-15.1MDoctors HospitalCompontiac general hospital on above:Performed By: #### MG, HH #### [facility] [address] [place] [address]. [place] [address] Mold Capper Helper: Christel Agustinmature granulocytes/100 WBC (Bld)1 %High0 [facility] HospitalCompontiac general hospital on above:Performed By: #### MG, HH #### [facility] [address] [place] [address] Mold Capper Helper: Robel Francois MDLymphocytes (Bld) [#/Vol]1.33 10*3/uLNormal 1.10-3.70[facility] HospitalCompontiac general hospital on above:Performed By: #### MG, HH #### [facility] [address] [place] [address] Mold Capper Helper: Montse Agustinmphocytes/100 WBC (Bld)10 %Fkw68-35XggijCleveland Clinic Mentor HospitalCompontiac general hospital on above:Performed By: #### MG, HH #### [facility] [address] [place] [address] Mold Capper Helper: JAREK AgustinCH (RBC) [Entitic mass]29.8 wbGujpty48.2-33.5 [facility] HospitalCompontiac general hospital on above:Performed By: #### MG, HH #### [facility] [address] [place] [address] Mold Capper Helper: KAREN AgustinC (RBC) [Mass/Vol]34.3 g/sXQqtrnl90.4-34.8 [facility] HospitalComment on above:Performed By: #### MG, HH #### [facility] [address] [place] [address]. [place] [address] Mold Capper Helper: JAREK AgustinCV (RBC) [Entitic vol]86.7 pNTpgwxx21.6-102.9 [facility] on above:Performed By: #### MG, HH #### [facility] [address] [place] [address] Mold Capper Helper: JAREK Agustinonocytes (Bld) [#/Vol]1.30 10*3/uLHigh 0.10-1.20[facility] on above:Performed By: #### MG, HH #### [facility] [address] [place] [address] Mold Capper Helper: JAREK Agustinonocytes/100 WBC (Bld)10 %Normal3-12MerSt. Anthony HospitalCompontiac general hospital on above:Performed By: #### MG, HH #### [facility] [address] [place] [address] Mold Capper Helper: Tracy Agustinutrophil (Seg)76 %Bpbz23-28BqwloSt. Anthony HospitalCompontiac general hospital on above:Performed By: #### MG, HH #### [facility] [address] [place] [address] Mold Capper Helper: Robel Francois MDNRBC Automated0.0 per 100 WBCNormal0.0[facility] HospitalCompontiac general hospital on above:Performed By: #### MG, HH #### [facility] [address] [place] [address] Mold Capper Helper: GREG Agustinlatelet mean volume (Bld) [Entitic vol]9.3 fL Normal8.1-13.5[facility] Hospital - Trumbullment on above:Performed By: #### MG, HH #### [facility] [address] [place] [address] Mold Capper Helper: Montserrat Agustin (Bld) [#/Vol]487 10*3/qHZaum742-406 [facility] HospitalCompontiac general hospital on above:Performed By: #### MG, HH #### [facility] [address] [place] [address] Mold Capper Helper: GREGORIA Agustin (Bld) [#/Vol]3.46 10*6/uLLow3.95-5.11[facility] on above:Performed By: #### MG, HH #### [facility] [address] [place] [address]. [place] [address] Mold Capper Helper: GREGORIA Agustin morphology finding Nom (Bld)ANISOCYTOSIS PRESENTNoCleveland Clinic Children's Hospital for RehabilitationCompontiac general hospital on above:Performed By: #### MG, HH #### [facility] [place] [address] Mold Capper Helper: JEFF Agustin (Bld) [#/Vol]13.1 10*3/uLHigh3.5-11.3MMemorial Health System [facility] on above:Performed By: #### MG, HH #### [facility] [address] [facility] [place] [address] Mold Capper Helper: Lynn Agustin,Urineon [id number],UrineSpecimen Description .URINE Culture NO SIGNIFICANT GROWTH Report Status FINAL 09/29/2024[facility] on above: Performed By: #### URC #### [facility] [address] [place] [address] Mold Capper Helper: Robel Francois MD [facility] [address] [place], [place] [id number] Mold Capper Helper: NATHALIA Marteulture, Urineon [id number] identified Cx Nom (Unsp spec)NO SIGNIFICANT GROWTHBon [facility] Specimen Description.URINEBon Secours Mercy Health Kings Mills HospitalBon Secours [facility] Health Kings Mills HospitalMHPT CULT,URINEon [id number] CULT,URINESpecimen Description .URINENOMS Healthcare MHPT CULT,URINECulture NO SIGNIFICANT GROWTHNOMS HealthcareMHPT CULT,URINEReport Status FINAL 09/29/2024NOMS HealthcareOriginal Ordering Provider: ZA MASON CLINISYNCNOWA HealthcareMagnesiumon [id number] [Mass/Vol]1.9 mg/dL1.6 - 2.4 mg/dLBon SecLafourche, St. Charles and Terrebonne parishes HealthMagnesium [Mass/Vol]1.9 mg/dLNormal1.6-2.4 [facility] HospitalComment on above:Performed By: #### CBC, BMP #### [facility] [address] [place], [place] [id number] Mold Capper Helper: Masood Caal MDNo Panel Informationon [id number] Parkwood HospitalBasic Metabolic Panelon [id number] gap [Moles/Vol]14 mmol/L9 - 16 mmol/LBon SecLafourche, St. Charles and Terrebonne parishes HealthCalcium [Mass/Vol]8.8 mg/dL8.8 - 10.2 mg/dLBon [facility] HealthChloride [Moles/Vol]99 mmol/L98 - 107 mmol/LBon SecLafourche, St. Charles and Terrebonne parishes HealthCO2 [Moles/Vol]22 mmol/L20 - 31 mmol/LBon [facility] Health Creatinine [Mass/Vol]0.4 mg/dLLow0.50 - 0.90 mg/dLBon Secours Memorial Hospital HealthEst, Glom Filt Rate- PINFBon Parkwood HospitalComment on above: These results are not intended for use in patients <18 years of age. eGFR results are calculated without a race factor using the 2020 CKD-EPI equation. Careful clinical correlation is recommended, particularly when comparing to results calculated using previous equations. The CKD-EPI equation is less accurate in patients with extremes of muscle mass, extra-renal metabolism of creatine, excessive creatine ingestion, or following therapy that affects renal tubular secretion. Glucose [Mass/Vol]86 mg/dL82 - 115 mg/dLBon Parkwood HospitalInterpretation and review of laboratory resultsAbnormalBon Parkwood HospitalPotassium [Moles/Vol]4.0 mmol/L3.7 - 5.3 mmol/LBon Parkwood HospitalSodium [Moles/Vol] 134 mmol/QQba717 - 145 mmol/LBon Parkwood HospitalUrea nitrogen [Mass/Vol]3 mg/dLLow8 - 23 mg/dLBon Parkwood HospitalBasic Metabolic Profon 09-28-2024 Anion gap [Moles/Vol]14 mmol/LNormal9-16[facility] HospitalComment on above: Performed By: #### MG, HH #### [facility] [address] [place] [address] Mold Capper Helper: NATHALIA Agustinalcium [Mass/Vol]8.8 mg/dLNormal8.8-10.2Mkettering health miamisburgy Multicare Tacoma General HospitalComment on above:Performed By: #### MG, HH #### [facility] [address] [place] [address] Mold Capper Helper: NATHALIA Agustinhloride [Moles/Vol]99 mmol/MDrlidj34-076YjjtxCleveland Clinic Mentor HospitalCompontiac general hospital on above:Performed By: #### MG, HH #### [facility] [address] [place] [address] Mold Capper Helper: NATHALIA AgustinO2 [Moles/Vol]22 mmol/TOzsxwi72-96ZxchbCleveland Clinic Mentor HospitalCompontiac general hospital on above:Performed By: #### MG, HH #### [facility] [address] [place] [address] Mold Capper Helper: NATHALIA Agutsinreatinine [Mass/Vol]0.4 mg/dLLow0.50-0.90[facility] HospitalComment on above:Performed By: #### MG, HH #### [facility] [address] [place] [address]. [place] [address] Mold Capper Helper: Robel Francois MDGFR/1.73 sq M.predicted among non-blacks MDRD (S/P/Bld) [Vol rate/Area]mL/min/{1.73_m2}Normal>60[facility] HospitalComment on above:Result Comment: These results are not intended for use in patients <18 years of age. eGFR results are calculated without a race factor using the 2020 CKD-EPI equation. Careful clinical correlation is recommended, particularly when comparing to results calculated using previous equations. The CKD-EPI equation is less accurate in patients with extremes of muscle mass, extra-renal metabolism of creatine, excessive creatine ingestion, or following therapy that affects renal tubular secretion.Performed By: #### MG, HH #### [facility] [address] [place] [address]. [place] [address] Mold Capper Helper: Robel Francois MDGlucose [Mass/Vol]86 mg/xSFlzfyd72-083PzbetCleveland Clinic Mentor HospitalComment on above:Performed By: #### MG, HH #### [facility] [address] [place] [address]. [place] [address] Mold Capper Helper: GREG Agustinotassium [Moles/Vol]4.0 mmol/LNormal3.7-5.3 [facility] HospitalComment on above:Performed By: #### MG, HH #### [facility] [address] [place] [address]. [place] [address] Mold Capper Helper: VENESSA Agustinodium [Moles/Vol]134 mmol/KNif329-937DpbydSt. Anthony HospitalComment on above:Performed By: #### MG, HH #### [facility] [address] [place] [address] Mold Capper Helper: Robel Francois MDUrea nitrogen [Mass/Vol]3 mg/dLLow8-23[facility] HospitalComment on above:Performed By: #### , #### [facility] [address] [place] [address] Mold Capper Helper: NATHALIA Agustin with Auto Differentialon 09-28-2024 Basophils (Bld) [#/Vol]0.03 10*3/uLBon Secours [facility] Hospitaly [facility] HospitalBasophils/100 WBC (Bld)0 %0 - 2 %[facility] HospitalEosinophils (Bld) [#/Vol]0.24 10*3/uLBon Secours [facility] Mills HospitalEosinophils/100 WBC (Bld)2 %1 - 4 %[facility] Erythrocyte distribution width (RBC) [Ratio]14.6 %High11.8 - 14.4 %[facility] Hospitaly [facility] HospitalHematocrit (Bld) [Volume fraction]31.4 %Low36.3 - 47.1 %[facility] HospitalHemoglobin (Bld) [Mass/Vol]10.8 g/dLLow11.9 - 15.1 g/dLBon Secours Mercy [facility] HospitalImmature granulocytes (Bld) [#/Vol]0.05 10*3/uLBon Secours Mercy [facility] HospitalImmature granulocytes/100 WBC (Bld)0 %0[facility] Interpretation and review of laboratory resultsAbnormalBon Secours Memorial Hospital Health Lymphocytes/100 WBC (Bld)9 %Low24 - 43 %[facility] Hospitaly [facility] HospitalLymphocytes/100 WBC (Bld)1.32 %[facility] Hospitaly [facility] HospitalH (RBC) [Entitic mass]29.8 pg25.2 - 33.5 pgBon Secours Veterans Health AdministrationHC (RBC) [Mass/Vol]34.4 g/dL28.4 - 34.8 g/dLBon Secours [facility] Hospitaly [facility] North HospitalV (RBC) [Entitic vol]86.5 fL82.6 - 102.[address] Mary'S HospitalMonocytes/100 WBC (Bld)9 %3 - 12 %[facility] Monocytes/100 WBC (Bld)1.37 %HighBon Secours St. Mary'S HospitalNeutrophils/100 WBC (Bld)79 %High36 - 65 %[facility] Mary'S HospitalNucleated RBC/100 WBC (Bld) [Ratio]0.0 %0.0 per 100 WBCBon [facility] HealthPlatelet mean volume (Bld) [Entitic vol]9.2 fL8.1 - 13.5 fLWellmont Lonesome Pine Mt. View Hospital HealthPlatelets (Bld) [#/Vol] 454 10*3/uLHighBon SecPremier Health Miami Valley Hospital NorthRBC (Bld) [#/Vol]3.63 10*6/uLLow3.95 - 5.11 m/uLBon Secours St. Mary'S HospitalRBC (Bld) [#/Vol]ANISOCYTOSIS PRESENTBon Parkwood HospitalSegmented neutrophils/100 WBC (Bld)11.57 %HighBon Secours St. Mary'S HospitalWBC other (Bld) [#/Vol]14.6HighBon Secours St[address] Mary'S HospitalBon Parkwood HospitalCBC with Diffon [id number]. Basophil0.03 k/uLNormal0.00-0.20[facility] HospitalComment on above:Performed By: #### MG, HH #### [facility] [address] [place] [address] Mold Capper Helper: Farideh Agustin.Imm.Granulocyte0.05 k/uLNormal0.00-0.30 [facility] HospitalComment on above:Performed By: #### MG, HH #### [facility] [address] [place] [address] Mold Capper Helper: Farideh Agustin.Neutrophil (Seg)11.57 k/uLHigh1.50-8.10 [facility] HospitalComment on above:Performed By: #### MG, HH #### [facility] [address] [place] [address] Mold Capper Helper: Robel Francois MDBasophils/100 WBC (Bld)0 %Normal0-2[facility] HospitalComment on above:Performed By: #### MG, HH #### [facility] [address] [place] [address] Mold Capper Helper: RUMA Agustinosinophils (Bld) [#/Vol]0.24 10*3/uLNormal 0.00-0.44[facility] HospitalComment on above:Performed By: #### MG, HH #### [facility] [address] [place] [address] Mold Capper Helper: RUMA Agustinosinophils/100 WBC (Bld)2 %Normal1-4[facility] HospitalComment on above:Performed By: #### MG, HH #### [facility] [address] [place] [address] Mold Capper Helper: Robel Francois MDErythrocyte distribution width (RBC) [Ratio] 14.6 %High11.8-14.4[facility] HospitalCompontiac general hospital on above:Performed By: #### MG, HH #### [facility] [address] [place] [address]. [place] [address] Mold Capper Helper: Robel Francois MDHematocrit (Bld) [Volume fraction]31.4 %Low 36.3-47.1[facility] HospitalComment on above:Performed By: #### MG, HH #### [facility] [address] [place] [address]. [place] [address] Mold Capper Helper: Robel Francois MDHemoglobin (Bld) [Mass/Vol]10.8 g/dLLow 11.9-15.1[facility] HospitalCompontiac general hospital on above:Performed By: #### MG, HH #### [facility] [facility] [address] [place] [address] Mold Capper Helper: Jovany Agustin granulocytes/100 WBC (Bld)0 %Normal0 [facility] on above:Performed By: #### MG, HH #### [facility] [address] [place] [address] Mold Capper Helper: Montse Agustinmphocytes (Bld) [#/Vol]1.32 10*3/uLNormal 1.10-3.70[facility] on above:Performed By: #### MG, HH #### [facility] [address] [place] [address]67 Mold Capper Helper: Montse Agustinmphocytes/100 WBC (Bld)9 %Bdp55-62YuzorCleveland Clinic Ment[facility] HospitalCompontiac general hospital on above:Performed By: #### MG, HH #### [facility] [address] [place] [address] Mold Capper Helper: KAREN Agustin (RBC) [Entitic mass]29.8 vpNjtyzo15.2-33.5 [facility] on above:Performed By: #### MG, HH #### [facility] [address] [place] [address] Mold Capper Helper: KAREN AgustinC (RBC) [Mass/Vol]34.4 g/iBBaxeui57.4-34.8 [facility] on above:Performed By: #### MG, HH #### [facility] [address] [place] [address] 30305 Mold Capper Helper: JAREK AgustinCV (RBC) [Entitic vol]86.5 cAWpwydz72.6-102.9 [facility] on above:Performed By: #### MG, HH #### [facility] [address] [facility] [place] [address] Mold Capper Helper: JAREK Agustinonocytes (Bld) [#/Vol]1.37 10*3/uLHigh 0.10-1.20MerSt. Anthony HospitalCompontiac general hospital on above:Performed By: #### MG, HH #### [facility] [address] [place] [address] Mold Capper Helper: JAREK Agustinonocytes/100 WBC (Bld)9 %Normal3-12MerSt. Anthony HospitalCompontiac general hospital on above:Performed By: #### MG, HH #### [facility] [address] [place] [address]. [place] [address] Mold Capper Helper: Tracy Agustinutrophil (Seg)79 %Jzzq71-79NjxqiLourdes Medical Center on above:Performed By: #### MG, HH #### [facility] [address] [place] [address] Mold Capper Helper: Robel Francois MDNRBC Automated0.0 per 100 WBCNormal0.0[facility] on above:Performed By: #### MG, HH #### [facility] [address] [place] [address]. [place] [address] Mold Capper Helper: GREG Agustinlatelet mean volume (Bld) [Entitic vol]9.2 fL Normal8.1-13.5[facility] on above:Performed By: #### MG, HH #### [facility] [address] [place] [address]. [place] [address] Mold Capper Helper: Cece Agustintelets (Bld) [#/Vol]454 10*3/fIGtcj749-354 [facility] on above:Performed By: #### MG, HH #### [facility] [address] [place] [address] Mold Capper Helper: MIHCAEL AgustinBC (Bld) [#/Vol]3.63 10*6/uLLow3.95-5.11[facility] on above:Performed By: #### MG, HH #### [facility] [address] [place] [address] Mold Capper Helper: GREGORIA Agustin morphology finding Nom (Bld)ANISOCYTOSIS PRESENTNormalCleveland Clinic Ment[facility] HospitalCompontiac general hospital on above:Performed By: #### MG, HH #### [facility] [address] [place] [address] Mold Capper Helper: Robel Francois MDWBC (Bld) [#/Vol]14.6 10*3/uLHigh3.5-11.3MDoctors HospitalCompontiac general hospital on above:Performed By: #### MG, HH #### [facility] [address] [facility] [place] [address] Mold Capper Helper: Robel Francois MDLactate, Sepsison 70-41-3270Pasbsdc (BldV) [Moles/Vol]0.7 mmol/L0.5 - 1.9 mmol/LBon Parkwood HospitalBon SecPremier Health Miami Valley Hospital NorthLactic Acid, Sepsis0.7 mmol/LNormal0.5-1.9[facility] on above:Performed By: #### URC #### [facility] [address] [place] [address] Mold Capper Helper: Robel Francois MD [address] [place], [place] [id number] Mold Capper Helper: Masood Caal MDMagnesiumon 03-65-7961Codlnhria [Mass/Vol]2.0 mg/dL1.6 - 2.4 mg/dLBon Parkwood HospitalMagnesium [Mass/Vol]2.0 mg/dLNormal 1.6-2.4[facility] HospitalComment on above:Performed By: #### MG, HH #### [facility] [address] [place] [address] Mold Capper Helper: Robel Francois MDMicroscopic Urinalysison 51-78-1261Olokwcyizz cells LM.HPF (Urine sed) [#/Area]5 TO 10Bon Parkwood HospitalInterpretation and review of laboratory resultsAbnormalBon Parkwood HospitalMucus Ql (Urine sed)1+AbnormalNoneBon Parkwood HospitalRBC LM.HPF (Urine sed) [#/Area]2 TO 5 Bon Parkwood HospitalWBC LM.HPF (Urine sed) [#/Area]10 TO 20Bon [facility] Memorial HospitalNo Panel Informationon [id number] Parkwood HospitalPhosphoruson 39-07-0842Mrywdviaa [Mass/Vol]3.3 mg/dL2.5 - 4.5 mg/dL [facility] Mary'S HospitalPhosphorus, Inorg.on 68-28-4726Qnmsqcbvcg, Inorg.3.3 mg/dLNormal2.5-4.5[facility] HospitalComment on above:Performed By: #### MG, HH #### [facility] [address] [place] [address] Mold Capper Helper: Linda Agustin XR Chest AP single viewon [id number] acute process. MHPN RIS CONSOLIDATEDEXAMINATION: ONE XRAY VIEW OF THE CHEST 09/28/2024 7:24 am COMPARISON: 09/27/2024 HISTORY: ORDERING SYSTEM PROVIDED HISTORY: leukocytosis, COPD TECHNOLOGIST PROVIDED HISTORY: leukocytosis, COPD Reason for Exam: COPD, leukocytosis FINDINGS: The lungs are without acute focal process. There is no effusion or pneumothorax. The cardiomediastinal silhouette is without acute process. The osseous structures are without acute process. [facility] Jeromy Forte MD - 09/28/2024 EXAMINATION: ONE XRAY VIEW OF THE CHEST 09/28/2024 7:24 am COMPARISON: 09/27/2024 HISTORY: ORDERING SYSTEM PROVIDED HISTORY: leukocytosis, COPD TECHNOLOGIST PROVIDED HISTORY: leukocytosis, COPD Reason for Exam: COPD, leukocytosis FINDINGS: The lungs are without acute focal process. There is no effusion or pneumothorax. The cardiomediastinal silhouette is without acute process. The osseous structures are without acute process. IMPRESSION: No acute process. [facility] TekmiRadiology Study observation (narrative)[facility] TekmiPorthca [facility] XR Chest AP single viewOrdered By: Jeromy Black[place] on 27-00-3523Nkj Tekmi Work Phone: Procalcitoninon [id number] and review of laboratory resultsAbnormalBanner [facility] Center TekmiProcalcitonin [Mass/Vol]0.17 ng/mLHigh0.00 - 0.09 ng/mLBanner Thunderbird Medical Center TekmiComment on above: Suspected Sepsis: <0.50 ng/mL Low likelihood of sepsis. 0.50-2.00 ng/mL Increased likelihood of sepsis. Antibiotics encouraged. >2.00 ng/mL High risk of sepsis/shock. Antibiotics strongly encouraged. Suspected Lower Resp Tract Infections: <0.24 ng/mL Low likelihood of bacterial infection. >0.24 ng/mL Increased likelihood of bacterial infection. Antibiotics encouraged. With successful antibiotic therapy, PCT levels should decrease rapidly. (Half- life of 24 to 36 hours.) Procalcitonin values from samples collected within the first 6 hours of systemic infection may still be low. Retesting may be indicated. Values from day 1 and day 4 can be entered into the Change in Procalcitonin Calculator (www.dtpwvq-wvj-fajjzopcwt.com) to determine the patient's Mortality Risk Prognosis In healthy neonates, plasma Procalcitonin (PCT) concentrations increase gradually after , reaching peak values at about 24 hours of age then decrease to normal values below 0.5 ng/mL by 48-72 hours of age. Prieto Santosryne [facility] HospitalProcalcitonin0.17 ng/mLHigh0.00-0.09MerSt. Anthony HospitalComment on above:Result Comment: Suspected Sepsis: <0.50 ng/mL Low likelihood of sepsis. 0.50-2.00 ng/mL Increased likelihood of sepsis. Antibiotics encouraged. >2.00 ng/mL High risk of sepsis/shock. Antibiotics strongly encouraged. Suspected Lower Resp Tract Infections: <0.24 ng/mL Low likelihood of bacterial infection. >0.24 ng/mL Increased likelihood of bacterial infection. Antibiotics encouraged. With successful antibiotic therapy, PCT levels should decrease rapidly. (Half-life of 24 to 36 hours.) Procalcitonin values from samples collected within the first 6 hours of systemic infection may still be low. Retesting may be indicated. Values from day 1 and day 4 can be entered into the Change in Procalcitonin Calculator (www.uvqzfy-ikm-ffehjqjosn.[facility]) to determine the patient's Mortality Risk Prognosis In healthy neonates, plasma Procalcitonin (PCT) concentrations increase gradually after , reaching peak values at about 24 hours of age then decrease to normal values below 0.5 ng/mL by 48-72 hours of age.Performed By: #### URC #### [facility] [address] [place] [address] Mold Capper Helper: [place] [address] Mold Capper Helper: CHELO Marte w/Reflex Cultureon [id number], SemiQt,UrNegativeAbnormalNEGMerSt. Anthony HospitalComment on above:Performed By: #### CBC, BMP #### [address] [address] Mold Capper Helper: Prasanna Marte, Urine2+AbnormalNEGCleveland Clinic Mentor Hospital Comment on above:Performed By: #### CBC, BMP #### [address] [place] [address] Mold Capper Helper: NATHALIA Martelarity (U)SLIGHTLY CLOUDYAbnormalCLEARMercy Multicare Tacoma General HospitalComment on above:Performed By: #### CBC, BMP #### [facility] [address] [place] [address] Mold Capper Helper: NATHALIA Marteolor (U)YellowNormalYELMerSt. Anthony Hospital Comment on above:Performed By: #### CBC, BMP #### [facility] [address] [place] [address] Mold Capper Helper: Masood Caal MDGlucose Ql (U)NegativeNormalNEGMerSt. Anthony HospitalComment on above:Performed By: #### CBC, BMP #### [facility] [address] [place] [address] Mold Capper Helper: Masood Caal MDKetones Ql (U)2+ mg/dLAbnormalNEGMerSt. Anthony HospitalComment on above:Performed By: #### CBC, BMP #### [facility] [address] [place] [address] Mold Capper Helper: Masood Caal MDLeukocyte esterase Test strip Ql (U)SMALL AbnormalNEGMerSt. Anthony HospitalCompontiac general hospital on above:Performed By: #### CBC, BMP #### [facility] [address] [address] Mold Capper Helper: Masood Caal MDNitrite,UrNegativeNormalNEGMerSt. Anthony HospitalCompontiac general hospital on above:Performed By: #### CBC, BMP #### [facility] [address] [place] [address] Mold Capper Helper: Masood Caal [facility],Ur5.3Mudlcg1.0-8.0[facility] Comment on above:Performed By: #### CBC, BMP #### [facility] [address] [place] [address] Mold Capper Helper: GREG Marterotein Ql (U)1+ mg/dLAbnormalNEGKettering Health Springfield on above:Performed By: #### CBC, BMP #### [facility] [address] [place] [address] Mold Capper Helper: VENESSA Martepec. [place],Ur1.480Wuwwpj8.005-1.030[facility] on above:Performed By: #### CBC, BMP #### [facility] [address] [place] [address] Mold Capper Helper: Masood Caal MDUrobilinogen,UrNormalNormal0.0-1.0[facility] on above:Performed By: #### CBC, BMP #### [facility] [address] [place] [address] Mold Capper Helper: Masood Caal MDUrinalysis with Reflex to Cultureon 09-28-2024 Bilirubin Ql (U)NegativeAbnormalNEGATIVEBon Secours Mercy HealthClarity (U) SLIGHTLY CLOUDYAbnormalClearBon Secours Mercy HealthColor (U)YellowYellowBon Secours Mercy HealthGlucose Test strip (U) [Mass/Vol]NegativeNEGATIVE mg/dLBon Secours Mercy HealthHemoglobin Auto test strip Ql (U)2+AbnormalNEGATIVEBon Secours Mercy HealthInterpretation and review of laboratory resultsAbnormalBon Secours Mercy HealthKetones (U) [Mass/Vol]2+AbnormalNEGATIVE mg/dLBon Secours Mercy HealthLeukocyte esterase Test strip Ql (U)SMALLAbnormalNEGATIVEBon Secours Mercy HealthNitrite Ql (U)NegativeNEGATIVEBon Secours Mercy HealthpH (U)5.5 [pH]5.0 - 8.0[facility] HealthProtein (U) [Mass/Vol]1+AbnormalNEGATIVE mg/dLBon Secours Mercy HealthSpecific gravity (U) [Rel density]1.0201.005 - 1.030Bon [facility] HealthUrobilinogen Qn (U)Normal0.0 - 1.0 EU/dLBon [facility] HealthBon [facility] HealthUrinalysis,Microon [id number] cells LM Ql (Urine sed)5 TO 20Ffzztw1-5Lqypv [facility] HospitalComment on above: Performed By: #### CBC, BMP #### [facility] [address] [place] [address] Mold Capper Helper: Mei Marte Strands1+AbnormalNONEMercy Multicare Tacoma General HospitalComment on above:Performed By: #### CBC, BMP #### [facility] [address] [place] [address] Mold Capper Helper: Elizabeth Marte RBC's2 TO 0Thtsqm9-4Clzla [facility] HospitalComment on above:Performed By: #### CBC, BMP #### [facility] [address] [place] [address] Mold Capper Helper: Elizabeth Marte WBC's10 TO 89Ufbdfa1-4HorflCleveland Clinic Mentor HospitalComment on above:Performed By: #### CBC, BMP #### [facility] [address] [place] [address] Mold Capper Helper: LEAH Marte CHEST PORTABLEon [id number] CHEST PORTABLE EXAMINATION: ONE XRAY VIEW OF THE CHEST 09/28/2024 7:24 am COMPARISON: 09/27/2024 HISTORY: ORDERING SYSTEM PROVIDED HISTORY: leukocytosis, COPD TECHNOLOGIST PROVIDED HISTORY: leukocytosis, COPD Reason for Exam: COPD, leukocytosis FINDINGS: The lungs are without acute focal process. There is no effusion or pneumothorax. The cardiomediastinal silhouette is without acute process. The osseous structures are without acute process. IMPRESSION: No acute process. Interpreted by: Jeromy [place] MD Signed by: Jeromy Black[place] MD 09/28/24 Final resultNormalMercy Multicare Tacoma General HospitalBasic Metabolic Panelon [id number] gap [Moles/Vol]10 mmol/L9 - 16 mmol/LBon Parkwood HospitalCalcium [Mass/Vol] 9.1 mg/dL8.8 - 10.2 mg/dLBon Parkwood HospitalChloride [Moles/Vol]99 mmol/L98 - 107 mmol/LBon Parkwood HospitalCO2 [Moles/Vol]26 mmol/L20 - 31 mmol/LBon Parkwood HospitalCreatinine [Mass/Vol]0.4 mg/dLLow0.50 - 0.90 mg/dLBon Parkwood HospitalEst, Glom Filt Rate- PINFBon Parkwood HospitalComment on above: These results are not intended for use in patients <18 years of age. eGFR results are calculated without a race factor using the 2020 CKD-EPI equation. Careful clinical correlation is recommended, particularly when comparing to results calculated using previous equations. The CKD-EPI equation is less accurate in patients with extremes of muscle mass, extra-renal metabolism of creatine, excessive creatine ingestion, or following therapy that affects renal tubular secretion. Glucose [Mass/Vol]96 mg/dL82 - 115 mg/dLBon Parkwood HospitalInterpretation and review of laboratory resultsAbnormalBon Parkwood HospitalPotassium [Moles/Vol]3.6 mmol/LLow3.7 - 5.3 mmol/LBon Parkwood HospitalSodium [Moles/Vol]135 mmol/JTqq941 - 145 mmol/LBon Parkwood HospitalUrea nitrogen [Mass/Vol]mg/dLLow8 - 23 mg/dLBon Parkwood HospitalBasic Metabolic Profon 53-78-5072Mkein gap [Moles/Vol]10 mmol/LNormal9-16Mercy [facility] HospitalComment on above:Performed By: #### BMP #### [facility] [address] [facility] [place] [address] Mold Capper Helper: NATHALIA Agustinalcium [Mass/Vol]9.1 mg/dLNormal8.8-10.2Mer[facility] HospitalComment on above:Performed By: #### BMP #### [facility] [address] [facility] [place] [address] Mold Capper Helper: NATHALIA Agustinhloride [Moles/Vol]99 mmol/BOigthi27-760NrefiSt. Anthony HospitalComment on above:Performed By: #### BMP #### [facility] [address] [place] [address] Mold Capper Helper: NATHALIA AgustinO2 [Moles/Vol]26 mmol/AMwnbzx13-58BsqzxSt. Anthony HospitalComment on above:Performed By: #### BMP #### [facility] [address] [facility] [place] [address] Mold Capper Helper: NATHALIA Agustinreatinine [Mass/Vol]0.4 mg/dLLow0.50-0.90[facility] HospitalCompontiac general hospital on above:Performed By: #### BMP #### [facility] [address] [place] [address]. [place] [address] Mold Capper Helper: Robel Francois MDGFR/1.73 sq M.predicted among non-blacks MDRD (S/P/Bld) [Vol rate/Area]mL/min/{1.73_m2}Normal>60[facility] HospitalCompontiac general hospital on above:Result Comment: These results are not intended for use in patients <18 years of age. eGFR results are calculated without a race factor using the 2020 CKD-EPI equation. Careful clinical correlation is recommended, particularly when comparing to results calculated using previous equations. The CKD-EPI equation is less accurate in patients with extremes of muscle mass, extra-renal metabolism of creatine, excessive creatine ingestion, or following therapy that affects renal tubular secretion.Performed By: #### BMP #### [facility] [address] [facility] [place] [address] Mold Capper Helper: Robel Francois MDGlucose [Mass/Vol]96 mg/gFCvcnmp62-102KkxroCleveland Clinic Mentor HospitalCompontiac general hospital on above:Performed By: #### BMP #### [facility] [address] [place] [address] Mold Capper Helper: GREG Agustinotassium [Moles/Vol]3.6 mmol/LLow3.7-5.3Mer[facility] HospitalComment on above:Performed By: #### BMP #### [facility] [address] [place] [address] Mold Capper Helper: VENESSA Agustinodium [Moles/Vol]135 mmol/MLou273-937PdimnSt. Anthony HospitalComment on above:Performed By: #### BMP #### [facility] [address] [place] [address] Mold Capper Helper: Robel Francois MDUrea nitrogen [Mass/Vol]mg/dLLow8-23[facility] HospitalComment on above:Performed By: #### BMP #### [facility] [address] [place] [address] Mold Capper Helper: NATHALIA AgustinBC with Auto Differentialon 09-27-2024 Basophils (Bld) [#/Vol][facility] HealthBasophils/100 WBC (Bld)0 %0 - 2 % [facility] HealthEosinophils (Bld) [#/Vol]0.12 10*3/uLBon Secours Mercy HealthEosinophils/100 WBC (Bld)1 %1 - 4 %[facility] HealthErythrocyte distribution width (RBC) [Ratio]14.2 %11.8 - 14.4 %[facility] Hematocrit (Bld) [Volume fraction]30.1 %Low36.3 - 47.1 %[facility] Hemoglobin (Bld) [Mass/Vol]10.5 g/dLLow11.9 - 15.1 g/dLBon Secours Mercy Health Immature granulocytes (Bld) [#/Vol]0.03 10*3/uLBon Secours Mercy HealthImmature granulocytes/100 WBC (Bld)0 %0[facility] HealthInterpretation and review of laboratory resultsAbnormalBon Parkwood HospitalLymphocytes/100 WBC (Bld)9 %Low24 - 43 %Bon Parkwood HospitalLymphocytes/100 WBC (Bld)0.87 %LowBon [facility] Health [facility] HospitalH (RBC) [Entitic mass]30.0 pg25.2 - 33.5 pgBon [facility] HospitalHC (RBC) [Mass/Vol]34.9 g/xWBoms04.4 - 34.8 g/dLBon SecAkron Children's HospitalV (RBC) [Entitic vol]86.0 fL82.6 - 102.9 fLBon [facility] Hospital Monocytes/100 WBC (Bld)9 %3 - 12 %[facility]'S HospitalMonocytes/100 WBC (Bld)0.86 %[facility] Mary'S HospitalNeutrophils/100 WBC (Bld)81 %High36 - 65 %[facility] Mary'S HospitalNucleated RBC/100 WBC (Bld) [Ratio]0.0 %0.[address] Mary'S HospitalPlatelet mean volume (Bld) [Entitic vol]9.2 fL8.1 - 13.[address] Mary'S HospitalPlatelets (Bld) [#/Vol]410 10*3/uLBon Secours St. Mary'S HospitalRBC (Bld) [#/Vol]3.50 10*6/uLLow3.95 - 5.11 m/uLBon Secours St. Mary'S Hospital Segmented neutrophils/100 WBC (Bld)7.37 %[facility] Mary'S HospitalWBC other (Bld) [#/Vol]9.3Bon SecVernon Memorial HospitalCBC with Diffon 10-95-7102Qll. Basophil<0.73Yyetua8.00-0.20[facility] HospitalComment on above:Performed By: #### BMP #### [facility] [address] [place], [place] [address] Mold Capper Helper: Farideh Agustin.Imm.Granulocyte0.03 k/uLNormal0.00-0.30 [facility] HospitalComment on above:Performed By: #### BMP #### [facility] [address] [place] [address] Mold Capper Helper: Farideh Agustin.Neutrophil (Seg)7.37 k/uLNormal1.50-8.10 [facility] HospitalComment on above:Performed By: #### BMP #### [facility] [address] [place] [address] Mold Capper Helper: Robel Francois MDBasophils/100 WBC (Bld)0 %Normal0-2Mkettering health miamisburgy [facility] HospitalComment on above:Performed By: #### BMP #### [facility] [address] [place] [address] Mold Capper Helper: RUMA Agustinosinophils (Bld) [#/Vol]0.12 10*3/uLNormal 0.00-0.44[facility] HospitalComment on above:Performed By: #### BMP #### [facility] [address] [place] [address] Mold Capper Helper: RUMA Agustinosinophils/100 WBC (Bld)1 %Normal1-4MerSt. Anthony HospitalComment on above:Performed By: #### BMP #### [facility] [address] [place] [address] Mold Capper Helper: Robel Francois MDErythrocyte distribution width (RBC) [Ratio] 14.2 %Dqarhd13.8-14.4[facility] HospitalCompontiac general hospital on above:Performed By: #### BMP #### [facility] [address] [place] [address] Mold Capper Helper: Robel Francois MDHematocrit (Bld) [Volume fraction]30.1 %Low 36.3-47.1MercNew Wayside Emergency HospitalComment on above:Performed By: #### BMP #### [facility] [address] [place] [address] Mold Capper Helper: Robel Francois MDHemoglobin (Bld) [Mass/Vol]10.5 g/dLLow 11.9-15.1Mkettering health miamisburgy [facility] HospitalComment on above:Performed By: #### BMP #### [facility] [address] [place] [address] Mold Capper Helper: Alec Agustinture granulocytes/100 WBC (Bld)0 %Normal0 [facility] HospitalCompontiac general hospital on above:Performed By: #### BMP #### [facility] [address] [place] [address] Mold Capper Helper: Robel Francois MDLymphocytes (Bld) [#/Vol]0.87 10*3/uLLow 1.10-3.70[facility] HospitalComment on above:Performed By: #### BMP #### [facility] [address] [place] [address] Mold Capper Helper: Montse Agustinmphocytes/100 WBC (Bld)9 %Qbg44-90NktqsCleveland Clinic Mentor HospitalCompontiac general hospital on above:Performed By: #### BMP #### [facility] [address] [place] [address] Mold Capper Helper: JAREK AgustinCH (RBC) [Entitic mass]30.0 ucRdlhiz78.2-33.5 [facility] HospitalCompontiac general hospital on above:Performed By: #### BMP #### [facility] [address] [place] [address] Mold Capper Helper: Robel Alessandro, MDMCHC (RBC) [Mass/Vol]34.9 g/cLKcev20.4-34.8 [facility] HospitalComment on above:Performed By: #### BMP #### [facility] [address] [facility] [place] [address] Mold Capper Helper: JAREK AgustinCV (RBC) [Entitic vol]86.0 xAYvqvas82.6-102.9 [facility] HospitalCompontiac general hospital on above:Performed By: #### BMP #### [facility] [address] [place] [address] Mold Capper Helper: JAREK Agustinonocytes (Bld) [#/Vol]0.86 10*3/uLNormal 0.10-1.20[facility] HospitalCompontiac [facility] on above:Performed By: #### BMP #### [facility] [address] [place] [address] Mold Capper Helper: JAREK Agustinonocytes/100 WBC (Bld)9 %Normal3-12[facility] HospitalCompontiac [facility] hospital on above:Performed By: #### BMP #### [facility] [address] [place] [address] Mold Capper Helper: Tracy Agustinutrophil (Seg)81 %Mliu39-39QrclyCleveland Clinic Mentor HospitalCompontiac general hospital on above:Performed By: #### BMP #### [facility] [address] [place] [address] Mold Capper Helper: LIDIA AgustinBC Automated0.0 per 100 WBCNormal0.0[facility] HospitalCompontiac [facility] hospital on above:Performed By: #### BMP #### [facility] [address] [place] [address] Mold Capper Helper: Cece Agustintelet mean volume (Bld) [Entitic vol]9.2 fL Normal8.1-13.5[facility] HospitalComment on above:Performed By: #### BMP #### [facility] [address] [place] [address] Mold Capper Helper: Montserrat Agustin (Bld) [#/Vol]410 10*3/wGMbqtjw198-235 [facility] HospitalComment on above:Performed By: #### BMP #### [facility] [address] [place] [address] Mold Capper Helper: GREGORIA Agustin (Bld) [#/Vol]3.50 10*6/uLLow3.95-5.11[facility] HospitalCompontiac [facility] hospital on above:Performed By: #### BMP #### [facility] [address] [place] [address] Mold Capper Helper: JEFF Agustin (Bld) [#/Vol]9.3 10*3/uLNormal3.5-11.3MDoctors HospitalCompontiac general hospital on above:Performed By: #### BMP #### [facility] [address] [place] [address] Mold Capper Helper: JOHN Agustin 12 LeadOrdered By: Unknown Result on [id number]-T Mobcjgeq080 msBon Secours Mer[facility] Health [facility] Mills HospitalQRS Hcmkdvgc01 msBon Secours [facility] Mills HospitalQTc Calculation (Marktt)466 msBon Secours Memorial Hospital HealthR Axis58 degreesBon Secours [facility] HospitalT Ghlg49zzbgvcxFhh [facility] Ventricular Degk412LMEHaq SecBellevue Hospital SecPremier Health Miami Valley Hospital NorthEKG 12 Leadon 09-27-2024 Critical Test Result: High HR Atrial fibrillation with rapid ventricular response Abnormal ECGMHPN NIKO Francis, Magnus Provider - 09/27/2024 Critical Test Result: High HR Atrial fibrillation with rapid ventricular response Abnormal ECG Bon Parkwood HospitalMagnesiumon 72-66-1784Orsweuddg [Mass/Vol]2.0 mg/dL1.6 - 2.4 mg/dLBon Parkwood HospitalMagnesium [Mass/Vol]2.0 mg/dLNormal1.6-2.4 [facility] HospitalComment on above:Performed By: #### BMP #### [facility] [address] [place], [place] [id number] Mold Capper Helper: Robel Francois MDNo Panel Informationon [id number] Parkwood HospitalPhosphoruson 53-88-9795Ibklbjeeh [Mass/Vol]3.0 mg/dL2.5 - 4.5 mg/dL Bon Parkwood HospitalPhosphorus, Inorg.on 86-63-5568Utzfshbvsi, Inorg.3.0 mg/dLNormal2.5-4.5[facility] HospitalComment on above:Performed By: #### BMP #### [facility] [address] [place] [address] Mold Capper Helper: Linda Agustin XR Chest AP single viewon [id number] acute process. [facility] CONSOLIDATEDEXAMINATION: ONE XRAY VIEW OF THE CHEST 09/27/2024 1:06 pm COMPARISON: 09/08/2024 HISTORY: ORDERING SYSTEM PROVIDED HISTORY: dyspnea, wheezing TECHNOLOGIST PROVIDED HISTORY: dyspnea, wheezing Reason for Exam: dyspnea, wheezing FINDINGS: The lungs are without acute focal process. There is no effusion or pneumothorax. The cardiomediastinal silhouette is stable. The osseous structures are stable. [facility] Driss Stubbs MD - 09/27/2024 EXAMINATION: ONE XRAY VIEW OF THE CHEST 09/27/2024 1:06 pm COMPARISON: 09/08/2024 HISTORY: ORDERING SYSTEM PROVIDED HISTORY: dyspnea, wheezing TECHNOLOGIST PROVIDED HISTORY: dyspnea, wheezing Reason for Exam: dyspnea, wheezing FINDINGS: The lungs are without acute focal process. There is no effusion or pneumothorax. The cardiomediastinal silhouette is stable. The osseous structures are stable. IMPRESSION: No acute process. [facility] efabless corporationRadiology Study observation (narrative)Prieto [facility] Celerus Diagnosticshugo efabless corporationPortable XR Chest AP single viewOrdered By: Driss Lovett on [id number] SkySQLbayhealth hospital, [facility] campus Get10 Work Phone: XR CHEST PORTABLEon [id number] CHEST PORTABLE EXAMINATION: ONE XRAY VIEW OF THE CHEST 09/27/2024 1:06 pm COMPARISON: 09/08/2024 HISTORY: ORDERING SYSTEM PROVIDED HISTORY: dyspnea, wheezing TECHNOLOGIST PROVIDED HISTORY: dyspnea, wheezing Reason for Exam: dyspnea, wheezing FINDINGS: The lungs are without acute focal process. There is no effusion or pneumothorax. The cardiomediastinal silhouette is stable. The osseous structures are stable. IMPRESSION: No acute process. Interpreted by: Driss Lovett MD Signed by: Driss Lovett MD 09/27/24 Final resultNormalMercy Multicare Tacoma General HospitalBasic Metabolic Panelon [id number] gap [Moles/Vol]8 mmol/LLow9 - 16 mmol/LBon SecEmpathy Co HealthCalcium [Mass/Vol]8.4 mg/dLLow8.8 - 10.2 mg/dLBon SecEmpathy Co HealthChloride [Moles/Vol]105 mmol/L98 - 107 mmol/LBon SecEmpathy Co HealthCO2 [Moles/Vol]23 mmol/L20 - 31 mmol/LBon [facility] Medical CenterEmpathy Co HealthCreatinine [Mass/Vol]0.3 mg/dLLow 0.50 - 0.90 mg/dLBon [facility] Regional Medical CenterEmpathy Co HealthEst, Glom Filt Rate- PINFBon [facility] Get10Comment on above: These results are not intended for use in patients <18 years of age. eGFR results are calculated without a race factor using the 2020 CKD-EPI equation. Careful clinical correlation is recommended, particularly when comparing to results calculated using previous equations. The CKD-EPI equation is less accurate in patients with extremes of muscle mass, extra-renal metabolism of creatine, excessive creatine ingestion, or following therapy that affects renal tubular secretion. Glucose [Mass/Vol]90 mg/dL82 - 115 mg/dLBon Parkwood HospitalPotassium [Moles/Vol]3.7 mmol/L3.7 - 5.3 mmol/LBon Parkwood HospitalSodium [Moles/Vol] 136 mmol/L136 - 145 mmol/LBon Parkwood HospitalUrea nitrogen [Mass/Vol]mg/dL Low8 - 23 mg/dLBon Parkwood HospitalBasic Metabolic Profon [id number] gap [Moles/Vol]8 mmol/LLow9-16[facility] HospitalComment on above:Performed By: #### BMP #### [facility] [address] [place] [address] Mold Capper Helper: NATHALIA Agustinalcium [Mass/Vol]8.4 mg/dLLow8.8-10.2Mer[facility] Mult[facility] Tacoma General HospitalComment on above:Performed By: #### BMP #### [facility] [facility] [place] [address] Mold Capper Helper: NATHALIA Agustinhloride [Moles/Vol]105 mmol/PQtidke94-700AbdzyCleveland Clinic Mentor HospitalCompontiac general hospital on above:Performed By: #### BMP #### [facility] [address] [place] [address]. [place] [address] Mold Capper Helper: NATHALIA AgustinO2 [Moles/Vol]23 mmol/XYjmzvk28-92GlzdsSt. Anthony HospitalCompontiac general hospital on above:Performed By: #### BMP #### [facility] [place] [address] Mold Capper Helper: NATHALIA Agustinreatinine [Mass/Vol]0.3 mg/dLLow0.50-0.90[facility] HospitalComment on above:Performed By: #### BMP #### [facility] [address] [place] [address] Mold Capper Helper: Robel Francois MDGFR/1.73 sq M.predicted among non-blacks MDRD (S/P/Bld) [Vol rate/Area]mL/min/{1.73_m2}Normal>60Mer[facility] General HospitalCompontiac general hospital on above:Result Comment: These results are not intended for use in patients <18 years of age. eGFR results are calculated without a race factor using the 2020 CKD-EPI equation. Careful clinical correlation is recommended, particularly when comparing to results calculated using previous equations. The CKD-EPI equation is less accurate in patients with extremes of muscle mass, extra-renal metabolism of creatine, excessive creatine ingestion, or following therapy that affects renal tubular secretion.Performed By: #### BMP #### [facility] [address] [place] [address] Mold Capper Helper: Robel Francois MDGlucose [Mass/Vol]90 mg/kVJnvybr18-465Hvgrw Mult[facility] General HospitalComment on above:Performed By: #### BMP #### [facility] [address] [place] [address] Mold Capper Helper: GREG Agustinotassium [Moles/Vol]3.7 mmol/LNormal3.7-5.3 [facility] HospitalCompontiac general hospital on above:Performed By: #### BMP #### [facility] [address] [place] [address] Mold Capper Helper: VENESSA Agustinodium [Moles/Vol]136 mmol/QFhveyo489-616NljvuCleveland Clinic Mentor HospitalCompontiac general hospital on above:Performed By: #### BMP #### [facility] [address] [place] [address] Mold Capper Helper: Robel Francois MDUrea nitrogen [Mass/Vol]mg/dLLow8-23Mer[facility] HospitalCompontiac general hospital on above:Performed By: #### BMP #### [facility] [address] [place] [address] Mold Capper Helper: Robel Francois [facility] with Auto Differentialon 09-26-2024 Basophils (Bld) [#/Vol]Bon Parkwood HospitalBasophils/100 WBC (Bld)0 %0 - 2 % [facility]'S HospitalEosinophils (Bld) [#/Vol]0.16 10*3/uLBon SecPremier Health Miami Valley Hospital NorthEosinophils/100 WBC (Bld)3 %1 - 4 %[facility] Mary'S HospitalErythrocyte distribution width (RBC) [Ratio]14.3 %11.8 - 14.4 %[facility] Hematocrit (Bld) [Volume fraction]25.7 %Low36.3 - 47.1 %[facility] Hemoglobin (Bld) [Mass/Vol]8.7 g/dLLow11.9 - 15.1 g/dLBon [facility] Immature granulocytes (Bld) [#/Vol]0.03 10*3/uLBon Parkwood HospitalImmature granulocytes/100 WBC (Bld)1 %Mirc7AbiBon Secours St. Mary'S HospitalInterpretation and review of laboratory resultsAbnormalBon Parkwood HospitalLymphocytes/100 WBC (Bld)18 %Low24 - 43 %[facility] Mary'S HospitalLymphocytes/100 WBC (Bld)1.09 %Low HealthSouth Medical CenterH (RBC) [Entitic mass]29.6 pg25.2 - 33.5 pgBon [facility] Health System Ontario HospitalHC (RBC) [Mass/Vol]33.9 g/dL28.4 - 34.8 g/dLBon [facility]ita Health System Ontario HospitalV (RBC) [Entitic vol]87.4 fL82.6 - 102.[address] Mary'S Hospital Monocytes/100 WBC (Bld)13 %High3 - 12 %[facility]'S HospitalMonocytes/100 WBC (Bld)0.78 %[facility] Mary'S HospitalNeutrophils/100 WBC (Bld)67 %High36 - 65 %[facility] Mary'S HospitalPlatelet mean volume (Bld) [Entitic vol]9.6 fL8.1 - 13.[address] Mary'S HospitalPlatelets (Bld) [#/Vol]287 10*3/uLBon Parkwood HospitalRBC (Bld) [#/Vol]2.94 10*6/uLLow3.95 - 5.11 m/[facility] Segmented neutrophils/100 WBC (Bld)4.10 %[facility] Mary'S HospitalWBC other (Bld) [#/Vol]6.2Bon [facility] HospitalCBC with Diffon 56-71-2972Nhw. Basophil<0.84Iuviyl9.00-0.20[facility] HospitalComment on above:Performed By: #### BMP #### [facility] [address] [place] [address] Mold Capper Helper: Farideh Agustin.Imm.Granulocyte0.03 k/uLNormal0.00-0.30 [facility] HospitalComment on above:Performed By: #### BMP #### [facility] [address] [place] [address] Mold Capper Helper: Farideh Agustin.Neutrophil (Seg)4.10 k/uLNormal1.50-8.10 [facility] HospitalComment on above:Performed By: #### BMP #### [facility] [address] [place] [address] Mold Capper Helper: Robel Francois MDBasophils/100 WBC (Bld)0 %Normal0-2[facility] General HospitalComment on above:Performed By: #### BMP #### [facility] [address] [place] [address] Mold Capper Helper: RUMA Agustinosinophils (Bld) [#/Vol]0.16 10*3/uLNormal 0.00-0.44Mer[facility] Freeburg HospitalComment on above:Performed By: #### BMP #### [facility] [address] [place] [address] Mold Capper Helper: RUMA Agustinosinophils/100 WBC (Bld)3 %Normal1-4[facility] HospitalCompontiac general hospital on above:Performed By: #### BMP #### [facility] [address] [place] [address] Mold Capper Helper: Robel Francois MDErythrocyte distribution width (RBC) [Ratio] 14.3 %Arcard85.8-14.4[facility] on above:Performed By: #### BMP #### [facility] [address] [place] [address] Mold Capper Helper: Robel Francois MDHematocrit (Bld) [Volume fraction]25.7 %Low 36.3-47.1MMemorial Health System [facility] on above:Performed By: #### BMP #### [facility] [address] [place] [address] Mold Capper Helper: Robel Francois MDHemoglobin (Bld) [Mass/Vol]8.7 g/dLLow11.9-15.1 [facility] on above:Performed By: #### BMP #### [facility] [address] [place] [address] Mold Capper Helper: Robel Francois MDImmature granulocytes/100 WBC (Bld)1 %High0 [facility] HospitalCompontiac general hospital on above:Performed By: #### BMP #### [facility] [address] [place] [address] Mold Capper Helper: Robel Francois MDLymphocytes (Bld) [#/Vol]1.09 10*3/uLLow 1.10-3.70[facility] HospitalComment on above:Performed By: #### BMP #### [facility] [address] [place] [address] Mold Capper Helper: Montse Agustinmphocytes/100 WBC (Bld)18 %Zog33-40WotsoCleveland Clinic Mentor HospitalComment on above:Performed By: #### BMP #### [facility] [address] [place] [address] Mold Capper Helper: JAREK AgustinCH (RBC) [Entitic mass]29.6 tjNvoduj13.2-33.5 [facility] HospitalCompontiac general hospital on above:Performed By: #### BMP #### [facility] [address] [place] [address] Mold Capper Helper: JAREK AgustinCHC (RBC) [Mass/Vol]33.9 g/dKYgouog89.4-34.8 [facility] HospitalComment on above:Performed By: #### BMP #### [facility] [address] [place] [address] Mold Capper Helper: JAREK AgustinCV (RBC) [Entitic vol]87.4 fUPqftnw09.6-102.9 [facility] HospitalCompontiac general hospital on above:Performed By: #### BMP #### [facility] [address] [place] [address] Mold Capper Helper: JAREK Agustinonocytes (Bld) [#/Vol]0.78 10*3/uLNormal 0.10-1.20[facility] HospitalCompontiac general hospital on above:Performed By: #### BMP #### [facility] [address] [place] [address] Mold Capper Helper: JAREK Agustinonocytes/100 WBC (Bld)13 %High3-12[facility] HospitalComment on above:Performed By: #### BMP #### [facility] [address] [facility] [place] [address] Mold Capper Helper: Tracy Agustinutrophil (Seg)67 %Uwxa98-49ZxmweCleveland Clinic Mentor HospitalComment on above:Performed By: #### BMP #### [facility] [address] [facility] [place] [address] Mold Capper Helper: Cecily Agustin mean volume (Bld) [Entitic vol]9.6 fL Normal8.1-13.5[facility] HospitalComment on above:Performed By: #### BMP #### [facility] [address] [place] [address]. [place] [address] Mold Capper Helper: Montserrat Agustin (Bld) [#/Vol]287 10*3/wNTzmzwk531-819 [facility] HospitalComment on above:Performed By: #### BMP #### [facility] [facility] [place] [address] Mold Capper Helper: MICHAEL AgustinBC (Bld) [#/Vol]2.94 10*6/uLLow3.95-5.11[facility] HospitalComment on above:Performed By: #### BMP #### [facility] [address] [facility] [place] [address] Mold Capper Helper: JEFF Agustin (Bld) [#/Vol]6.2 10*3/uLNormal3.5-11.3MDoctors HospitalComment on above:Performed By: #### BMP #### [facility] [facility]. [place], [place] [id number] Mold Capper Helper: Kailey Agustingnesiumon 13-47-0739Dhjqeqlha [Mass/Vol]2.0 mg/dL1.6 - 2.4 mg/dLBon Parkwood HospitalMagnesium [Mass/Vol]2.0 mg/dLNormal 1.6-2.4[facility] HospitalComment on above:Performed By: #### BMP #### [facility] [address] [place], [place] [phone] Mold Capper Helper: Oscar Agustin Panel Informationon [id number] and review of laboratory resultsAbnormalBon [facility]uel County Memorial HospitalPhosphoruson 52-27-9720Qtpapchag [Mass/Vol]3.1 mg/dL2.5 - 4.5 mg/dL Bon [facility] HospitalPhosphate [Mass/Vol]2.1 mg/dLLow 2.5 - 4.5 mg/dLBon Parkwood HospitalPhosphorus, Inorg.on 09-26-2024 Phosphorus, Inorg.3.1 mg/dLNormal2.5-4.5[facility] HospitalComment on above: Performed By: #### CBC, BMP #### [address] [address] Mold Capper Helper: GREG Martehosphomargies, Inorg.2.1 mg/dLLow2.5-4.5[facility] HospitalComment on above:Performed By: #### BMP #### [facility] [address] [place], [place] [address] Mold Capper Helper: Roxy Agustinc Metab w/rfx MGon 18-99-8521Ocfag gap [Moles/Vol]9 mmol/LNormal9-16[facility] HospitalComment on above:Performed By: #### MG, HH #### [facility] [address] [facility] [place] [address] Mold Capper Helper: NATHALIA Agustinalcium [Mass/Vol]8.3 mg/dLLow8.8-10.2[facility] HospitalCompontiac general hospital on above:Performed By: #### MG, HH #### [facility] [address] [place] [address]. [place] [address] Mold Capper Helper: NATHALIA Agustinhloride [Moles/Vol]103 mmol/FVuidzd09-179SntmtSt. Anthony HospitalComment on above:Performed By: #### MG, HH #### [facility] [address] [place] [address]. [place] [address] Mold Capper Helper: NATHALIA AgustinO2 [Moles/Vol]23 mmol/IUoikiz34-38MjaesCleveland Clinic Mentor HospitalComment on above:Performed By: #### MG, HH #### [facility] [address] [place] [address] Mold Capper Helper: NATHALIA Agustinreatinine [Mass/Vol]0.3 mg/dLLow0.50-0.90MerSt. Anthony HospitalCompontiac general hospital on above:Performed By: #### MG, HH #### [facility] [address] [place] [address] Mold Capper Helper: Robel Francois MDGFR/1.73 sq M.predicted among non-blacks MDRD (S/P/Bld) [Vol rate/Area]mL/min/{1.73_m2}Normal>60[facility] HospitalComment on above:Result Comment: These results are not intended for use in patients <18 years of age. eGFR results are calculated without a race factor using the 2020 CKD-EPI equation. Careful clinical correlation is recommended, particularly when comparing to results calculated using previous equations. The CKD-EPI equation is less accurate in patients with extremes of muscle mass, extra-renal metabolism of creatine, excessive creatine ingestion, or following therapy that affects renal tubular secretion.Performed By: #### MG, HH #### [facility] [address] [facility] [place] [address] Mold Capper Helper: Robel Francois MDGlucose [Mass/Vol]82 mg/iWLmqcwz40-198GhmmpCleveland Clinic Mentor HospitalCompontiac general hospital on above:Performed By: #### MG, HH #### [facility] [address] [facility] [place] [address] Mold Capper Helper: GREG Agustinotassium [Moles/Vol]3.9 mmol/LNormal3.7-5.3 [facility] HospitalCompontiac general hospital on above:Performed By: #### MG, HH #### [facility] [facility] [place] [address] Mold Capper Helper: VENESSA Agustinodium [Moles/Vol]134 mmol/GDci325-774PvubeCleveland Clinic Mentor HospitalCompontiac general hospital on above:Performed By: #### MG, HH #### [facility] [address] [place] [address] Mold Capper Helper: Robel Francois MDUrea nitrogen [Mass/Vol]2 mg/dLLow8-23[facility] HospitalCompontiac general hospital on above:Performed By: #### MG, HH #### [facility] [address] [place] [address] Mold Capper Helper: Robel Francois MDBasic Metabolic Panel w/ Reflex to MGon 35-65-5752Fmqyu gap [Moles/Vol]9 mmol/L9 - 16 mmol/LBon [facility]ours [facility] Calcium [Mass/Vol]8.3 mg/dLLow8.8 - 10.2 mg/dLBon Secours [facility] HospitalChloride [Moles/Vol]103 mmol/L98 - 107 mmol/LBon Secours [facility] HospitalCO2 [Moles/Vol]23 mmol/L20 - 31 mmol/LBon Secours [facility] HospitalCreatinine [Mass/Vol]0.3 mg/dLLow 0.50 - 0.90 mg/dLBon SecScranton Gillette CommunicationsEst, Glom Filt Rate- PINFBon SecEast Adams Rural HealthcareKiio [facility] Clinic Mercy HospitalComment on above: These results are not intended for use in patients <18 years of age. eGFR results are calculated without a race factor using the 2020 CKD-EPI equation. Careful clinical correlation is recommended, particularly when comparing to results calculated using previous equations. The CKD-EPI equation is less accurate in patients with extremes of muscle mass, extra-renal metabolism of creatine, excessive creatine ingestion, or following therapy that affects renal tubular secretion. Glucose [Mass/Vol]82 mg/dL82 - 115 mg/dLBon Secours Get10Potassium [Moles/Vol]3.9 mmol/L3.7 - 5.3 mmol/LBon SecEast Adams Rural HealthcareSoneterSodium [Moles/Vol] 134 mmol/SOuo190 - 145 mmol/LBon St. Mary'S Medical CenterSoneterUrea nitrogen [Mass/Vol]2 mg/dLLow8 - 23 mg/dLBon St. Mary'S Medical CenterSoneterCBC auto differentialon 09-25-2024 Basophils (Bld) [#/Vol][facility] Get10Basophils/100 WBC (Bld)0 %0 - 2 % [facility] Diagnosticsy efabless corporationEosinophils (Bld) [#/Vol]0.15 10*3/uLBon Secours Get10Eosinophils/100 WBC (Bld)2 %1 - 4 %[employer]pl[employer] Clinical CommunicationsErythrocyte distribution width (RBC) [Ratio]14.4 %11.8 - 14.4 %[facility] SecScranton Gillette Communications Hematocrit (Bld) [Volume fraction]25.6 %Low36.3 - 47.1 %[facility] Secbayhealth hospital, [facility] campus Get10 Hemoglobin (Bld) [Mass/Vol]8.7 g/dLLow11.9 - 15.1 g/dLBon SecScranton [employer] Communications Immature granulocytes (Bld) [#/Vol]0.04 10*3/uLBon Secours Kofikafe [facility] Mercy HospitalImmature granulocytes/100 WBC (Bld)0 %0Bon [facility] Regional Medical CenterScranton Gillette CommunicationsInterpretation and review of laboratory resultsAbnormalBon Secours Kofikafe [facility] Mer[facility] HospitalLymphocytes/100 WBC (Bld)11 %Low24 - 43 %Bon Parkwood HospitalLymphocytes/100 WBC (Bld)1.10 %Bon [facility] HospitalH (RBC) [Entitic mass]29.6 pg25.2 - 33.5 pgBon [facility] HospitalHC (RBC) [Mass/Vol]34.0 g/dL28.4 - 34.8 g/dLBon SecAkron Children's HospitalV (RBC) [Entitic vol]87.1 fL82.6 - 102.9 fLBon Parkwood HospitalMonocytes/100 WBC (Bld)9 %3 - 12 %Bon Park[facility] HospitalMonocytes/100 WBC (Bld)0.94 %[facility]S HospitalNeutrophils/100 WBC (Bld)78 %High36 - 65 %Bon [facility] HospitalNucleated RBC/100 WBC (Bld) [Ratio]0.0 %0.0 per 100 WBCBon Parkwood HospitalPlatelet mean volume (Bld) [Entitic vol]9.8 fL8.1 - 13.5 fLBon [facility] Hollywood HealthPlatelets (Bld) [#/Vol]245 10*3/uLBon SecPremier Health [facility] Hospital NorthRBC (Bld) [#/Vol]2.94 10*6/uLLow3.95 - 5.11 m/uLBon Parkwood HospitalSegmented neutrophils/100 WBC (Bld)7.94 %Bon Parkwood HospitalWBC other (Bld) [#/Vol] 10.2Bon SecVernon Memorial HospitalCBC with Diffon 09-25-2024 Abs. Basophil<0.95Xyupfu9.00-0.20[facility]or HospitalComment on above: Performed By: #### MG, DAMASO #### [facility] [address] [place] [address] Mold Capper Helper: Farideh Agustin.Imm.Granulocyte0.04 k/uLNormal0.00-0.30 [facility] HospitalComment on above:Performed By: #### MG, HH #### [facility] [place] [address] Mold Capper Helper: Farideh Agustin.Neutrophil (Seg)7.94 k/uLNormal1.50-8.10 [facility] HospitalComment on above:Performed By: #### MG, HH #### [facility] [address] [place] [address] Mold Capper Helper: Robel Francois MDBasophils/100 WBC (Bld)0 %Normal0-2[facility] HospitalComment on above:Performed By: #### MG, HH #### [facility] [address] [place] [address] Mold Capper Helper: RUMA Agustinosinophils (Bld) [#/Vol]0.15 10*3/uLNormal 0.00-0.44[facility] HospitalCompontiac general hospital on above:Performed By: #### MG, HH #### [facility] [address] [place] [address] Mold Capper Helper: RUMA Agustinosinophils/100 WBC (Bld)2 %Normal1-4[facility] HospitalCompontiac general hospital on above:Performed By: #### MG, HH #### [facility] [address] [place] [address] Mold Capper Helper: Robel Francois MDErythrocyte distribution width (RBC) [Ratio] 14.4 %Cqadpv07.8-14.4[facility] HospitalCompontiac general hospital on above:Performed By: #### MG, HH #### [facility] [address] [place] [address] Mold Capper Helper: Robel Francois MDHematocrit (Bld) [Volume fraction]25.6 %Low 36.3-47.1[facility] HospitalComment on above:Performed By: #### MG, HH #### [facility] [facility] [place] [address] Mold Capper Helper: Robel Francois MDHemoglobin (Bld) [Mass/Vol]8.7 g/dLLow11.9-15.1 [facility] on above:Performed By: #### MG, HH #### [facility] [address] [place] [address] Mold Capper Helper: Alec Agustinture granulocytes/100 WBC (Bld)0 %Normal0 [facility] on above:Performed By: #### MG, HH #### [facility] [address] [place] [address] Mold Capper Helper: Montse Agustinmphocytes (Bld) [#/Vol]1.10 10*3/uLNormal 1.10-3.70[facility] HospitalCompontiac general hospital on above:Performed By: #### MG, HH #### [facility] [address] [place] [address] Mold Capper Helper: Montse Agustinmphocytes/100 WBC (Bld)11 %Uth88-51HirbjCleveland Clinic Mentor HospitalCompontiac general hospital on above:Performed By: #### MG, HH #### [facility] [address] [place] [address] Mold Capper Helper: JAREK AgustinCH (RBC) [Entitic mass]29.6 toOjrdhw61.2-33.5 [facility] HospitalCompontiac general hospital on above:Performed By: #### MG, HH #### [facility] [address] [place] [address] Mold Capper Helper: Robel Alessandro, MDMCHC (RBC) [Mass/Vol]34.0 g/zHAkvjxi99.4-34.8 [facility] on above:Performed By: #### MG, HH #### [facility] [address] [facility] [place] [address] Mold Capper Helper: Robel Francois MDMCV (RBC) [Entitic vol]87.1 xMDzozoh11.6-102.9 [facility] HospitalCompontiac general hospital on above:Performed By: #### MG, HH #### [facility] [address] [place] [address] Mold Capper Helper: Robel Francois MDMonocytes (Bld) [#/Vol]0.94 10*3/uLNormal 0.10-1.20[facility] HospitalCompontiac general hospital on above:Performed By: #### MG, HH #### [facility] [address] [place] [address] Mold Capper Helper: JAREK Agustinonocytes/100 WBC (Bld)9 %Normal3-12[facility] HospitalCompontiac general hospital on above:Performed By: #### MG, HH #### [facility] [address] [place] [address] Mold Capper Helper: Robel Francois MDNeutrophil (Seg)78 %Ydct52-13GkxysCleveland Clinic Mentor HospitalCompontiac general hospital on above:Performed By: #### MG, HH #### [facility] [facility] [place] [address] Mold Capper Helper: Robel Francois MDNRBC Automated0.0 per 100 WBCNormal0.0[facility] on above:Performed By: #### MG, HH #### [facility] [address] [place] [address]. [place] [address] Mold Capper Helper: Cecily Agustin mean volume (Bld) [Entitic vol]9.8 fL Normal8.1-13.5[facility] HospitalCompontiac general hospital on above:Performed By: #### MG, HH #### [facility] [address] [place] [address] Mold Capper Helper: Montserrat Agustin (Bld) [#/Vol]245 10*3/tSZpjllh589-117 [facility] HospitalCompontiac general hospital on above:Performed By: #### MG, HH #### [facility] [facility] [place] [address] Mold Capper Helper: MICHAEL AgustinBC (Bld) [#/Vol]2.94 10*6/uLLow3.95-5.11[facility] HospitalCompontiac general hospital on above:Performed By: #### MG, HH #### [facility] [address] [facility] [place] [address] Mold Capper Helper: JEFF Agustin (Bld) [#/Vol]10.2 10*3/uLNormal3.5-11.3 [facility] on above:Performed By: #### MG, HH #### [facility] [facility] [place] [address] Mold Capper Helper: NATHALIA Agustinalcium, Ionicon 24-29-7621Mvihapo [Moles/Vol] 1.14 mmol/LNormal1.13-1.33[facility] HospitalCompontiac general hospital on above:Performed By: #### MG, HH #### [facility] [address] [place] [address] Mold Capper Helper: NATHALIA Agustinalcium, Ionizedon 80-30-5923Lbyalpq.ionized (Bld) [Moles/Vol]1.14 mmol/L1.13 - 1.33 mmol/LBon [facility] Memorial HospitalNo Panel Informationon 80-14-2918Tonicuzmrmnnxd and review of laboratory resultsAbnormalBon [facility] Phosphoruson 15-67-9954Kmidegvsb [Mass/Vol]1.2 mg/dLLow2.5 - 4.5 mg/dLBon Parkwood HospitalPhosphorus, Inorg.on 85-94-8694Hcaevrqmcj, Inorg.1.2 mg/dL Low2.5-4.5[facility] HospitalComment on above:Performed By: #### MG, #### [facility] [address] [place] [address] Mold Capper Helper: VENESSA AgustinURGICAL PATHOLOGY REPORTon [id number] Pathology ReportPath Number: [id number] -- Diagnosis -- SIGMOID COLON, RESECTION: - DIVERTICULAR DISEASE WITH FOCUS OF PERIDIVERTICULAR FIBROSIS AND SEROSAL FIBROSIS/ADHESIONS, CONSISTENT WITH PREVIOUSLY PERFORATED DIVERTICULITIS. - CLINICAL RECTOVAGINAL FISTULA. - BENIGN/VIABLE SURGICAL MARGINS (WITH FOCAL ACTIVE CRYPTITIS AT ONE MARGIN). - NEGATIVE FOR DYSPLASIA AND MALIGNANCY. Robel Francois M.D. Electronically Signed Out sls/09/25/2024 Clinical Information Pre-Op Diagnosis: DIVERTICULITIS Operative Findings: SIGMOID COLON Operation Performed: OPEN SIGMOID RESECTION WITH REPAIR OF RECTOVAGINAL FISTULA se Source of Specimen A: SIGMOID COLON Gross Description LILLIAM BAJWA, SIGMOID COLON Received in formalin is a 15.0 cm long x 3.5 cm in circumference segment of colon with a moderate amount of attached mesenteric fat. The serosa is pink-degroot with adhesions near one end. Sectioning reveals pink-degroot mucosa and, in the area of the aforementioned adhesions, there is a 1.1 cm diverticulum with an ill-defined fibrotic wall. The fibrosis extends to the external surface with adhesions; however, this region does not appear probe patent. No masses are seen. There is no region of marked stricture. The wall ranges in thickness from 0.1 to 0.4 cm and there is no region of marked stricture. Sectioning of the fat reveals no markedly enlarged nodes. Cassette summary: 1 resection margin shave, 2-4 region of diverticulum entirely. tm Komal Sutherland/se:09/23/2024 Microscopic Description Microscopic examination performed. Processing Lab: Placeholder Interpretation Performed at [address] [phone] SURGICAL PATHOLOGY CONSULTATION Patient Name: LILLIAM BAJWA [facility] Rec: [id number] [facility] ANATOMIC PATHOLOGY [address] [place] [phone] bon [facility] HospitalBasic Metab w/rfx MGon 23-64-5638Qupla gap [Moles/Vol]9 mmol/LNormal9-16[facility] HospitalComment on above:Performed By: #### BMP #### [facility] [address] [place] [address] Mold Capper Helper: NATHALIA Agustinalcium [Mass/Vol]8.3 mg/dLLow8.8-10.2[facility] HospitalComment on above:Performed By: #### BMP #### [facility] [place] [address] Mold Capper Helper: NATHALIA Agustinhloride [Moles/Vol]102 mmol/MBeuuso29-903JnwtmCleveland Clinic Mentor HospitalComment on above:Performed By: #### BMP #### [facility] [address] [place] [address] Mold Capper Helper: NATHALIA AgustinO2 [Moles/Vol]25 mmol/ZJyahyx79-51YulbaCleveland Clinic Mentor HospitalComment on above:Performed By: #### BMP #### [facility] [address] [place] [address] Mold Capper Helper: NATHALIA Agustinreatinine [Mass/Vol]0.4 mg/dLLow0.50-0.90[facility] HospitalComment on above:Performed By: #### BMP #### [facility] [address] [place] [address] Mold Capper Helper: Robel Francois MDGFR/1.73 sq M.predicted among non-blacks MDRD (S/P/Bld) [Vol rate/Area]mL/min/{1.73_m2}Normal>60[facility] HospitalComment on above:Result Comment: These results are not intended for use in patients <18 years of age. eGFR results are calculated without a race factor using the 2020 CKD-EPI equation. Careful clinical correlation is recommended, particularly when comparing to results calculated using previous equations. The CKD-EPI equation is less accurate in patients with extremes of muscle mass, extra-renal metabolism of creatine, excessive creatine ingestion, or following therapy that affects renal tubular secretion.Performed By: #### BMP #### [facility] [address] [place] [address]. [place] [address] Mold Capper Helper: Robel Francois MDGlucose [Mass/Vol]89 mg/zEFbipdg87-411LjundCleveland Clinic Mentor HospitalComment on above:Performed By: #### BMP #### [facility] [address] [place] [address] Mold Capper Helper: GREG Agustinotassium [Moles/Vol]3.3 mmol/LLow3.7-5.3[facility] HospitalComment on above:Performed By: #### BMP #### [facility] [address] [place] [address]. [place] [address] Mold Capper Helper: VENESSA Agustinodium [Moles/Vol]135 mmol/NXjn331-461LawqhSt. Anthony HospitalCompontiac general hospital on above:Performed By: #### BMP #### [facility] [address] [place] [address]. [place] [address] Mold Capper Helper: Robel Francois MDUrea nitrogen [Mass/Vol]3 mg/dLLow8-23[facility] HospitalComment on above:Performed By: #### BMP #### [facility] [address] [place] [address] Mold Capper Helper: Robel Francois MDBasic Metabolic Panel w/ Reflex to MGon 77-71-3087Fcltz gap [Moles/Vol]9 mmol/L9 - 16 mmol/LBon [facility] Calcium [Mass/Vol]8.3 mg/dLLow8.8 - 10.2 mg/dLBon Parkwood HospitalChloride [Moles/Vol]102 mmol/L98 - 107 mmol/LBon Parkwood HospitalCO2 [Moles/Vol]25 mmol/L20 - 31 mmol/LBon Parkwood HospitalCreatinine [Mass/Vol]0.4 mg/dLLow 0.50 - 0.90 mg/dLBon Parkwood HospitalEst, Glom Filt Rate- PINFBon Parkwood HospitalComment on above: These results are not intended for use in patients <18 years of age. eGFR results are calculated without a race factor using the 2020 CKD-EPI equation. Careful clinical correlation is recommended, particularly when comparing to results calculated using previous equations. The CKD-EPI equation is less accurate in patients with extremes of muscle mass, extra-renal metabolism of creatine, excessive creatine ingestion, or following therapy that affects renal tubular secretion. Glucose [Mass/Vol]89 mg/dL82 - 115 mg/dLBon Parkwood HospitalPotassium [Moles/Vol]3.3 mmol/LLow3.7 - 5.3 mmol/LBon Parkwood HospitalSodium [Moles/Vol]135 mmol/LIyx228 - 145 mmol/LBon Parkwood HospitalUrea nitrogen [Mass/Vol]3 mg/dLLow8 - 23 mg/dLBon Parkwood HospitalCBC with Auto Differentialon [id number] (Bld) [#/Vol]0.03 10*3/uLBon Parkwood HospitalBasophils/100 WBC (Bld)0 %0 - 2 %[facility] Mer[facility] HealthEosinophils (Bld) [#/Vol]0.07 10*3/uLBon Secours Mercy HealthEosinophils/100 WBC (Bld)1 %1 - 4 % [facility] HealthErythrocyte distribution width (RBC) [Ratio]14.2 %11.8 - 14.4 %[facility] HealthHematocrit (Bld) [Volume fraction]25.6 %Low36.3 - 47.1 %[facility] HealthHemoglobin (Bld) [Mass/Vol]8.9 g/dLLow11.9 - 15.1 g/dLBon Secours Mercy HealthImmature granulocytes (Bld) [#/Vol]0.05 10*3/uLBon Secours Mercy HealthImmature granulocytes/100 WBC (Bld)0 %0[facility] HealthInterpretation and review of laboratory resultsAbnormalBon Secours Mercy HealthLymphocytes/100 WBC (Bld)7 %Low24 - 43 %[facility] Hospitaly Health Lymphocytes/100 WBC (Bld)1.01 %LowBon Secours Veterans Health AdministrationH (RBC) [Entitic mass]29.8 pg25.2 - 33.5 pgBon Secours Veterans Health AdministrationHC (RBC) [Mass/Vol]34.8 g/dL 28.4 - 34.8 g/dLBon Secours [facility] Hospitaly HealthV (RBC) [Entitic vol]85.6 fL82.6 - 102.9 fLBon Secours Mercy HealthMonocytes/100 WBC (Bld)9 %3 - 12 %[facility] HealthMonocytes/100 WBC (Bld)1.15 %[facility] HealthNeutrophils/100 WBC (Bld)83 %High36 - 65 %[facility] HealthNucleated RBC/100 WBC (Bld) [Ratio]0.0 %0.0 per 100 WBCBon Secours Mercy HealthPlatelet mean volume (Bld) [Entitic vol]9.5 fL8.1 - 13.5 fLBon Secours Mercy HealthPlatelets (Bld) [#/Vol] 237 10*3/uLBon Secours Mercy HealthRBC (Bld) [#/Vol]2.99 10*6/uLLow3.95 - 5.11 m/uLBon Parkwood HospitalSegmented neutrophils/100 WBC (Bld)11.27 %HighBon Secours St. Mary'S HospitalWBC other (Bld) [#/Vol]13.6HStoneSprings Hospital CenterCBC with Diffon [id number]. Basophil0.03 k/uLNormal 0.00-0.20[facility] HospitalComment on above:Performed By: #### BMP #### [facility] [address] [place] [address] Mold Capper Helper: MDAbs. NikoleImm.Granulocyte0.05 k/uLNormal0.00-0.30 [facility] HospitalCompontiac general hospital on above:Performed By: #### BMP #### [facility] [address] [place] [address] Mold Capper Helper: MDAbs. NikoleNeutrophil (Seg)11.27 k/uLHigh1.50-8.10 [facility] HospitalCompontiac general hospital on above:Performed By: #### BMP #### [facility] [address] [place] [address] Mold Capper Helper: Robel Francois MDBasophils/100 WBC (Bld)0 %Normal0-2MDoctors HospitalCompontiac general hospital on above:Performed By: #### BMP #### [facility] [address] [place] [address] Mold Capper Helper: RUMA Agustinosinophils (Bld) [#/Vol]0.07 10*3/uLNormal 0.00-0.44[facility] HospitalCompontiac general hospital on above:Performed By: #### BMP #### [facility] [address] [place] [address] Mold Capper Helper: RUMA Agustinosinophils/100 WBC (Bld)1 %Normal1-4[facility] HospitalCompontiac general hospital on above:Performed By: #### BMP #### [facility] [address] [place] [address] Mold Capper Helper: Robel Francois MDErythrocyte distribution width (RBC) [Ratio] 14.2 %Nkxyuf01.8-14.4[facility] HospitalCompontiac general hospital on above:Performed By: #### BMP #### [facility] [address] [place] [address] Mold Capper Helper: Robel Francois MDHematocrit (Bld) [Volume fraction]25.6 %Low 36.3-47.1MDoctors HospitalCompontiac general hospital on above:Performed By: #### BMP #### [facility] [address] [place] [address] Mold Capper Helper: Robel Francois MDHemoglobin (Bld) [Mass/Vol]8.9 g/dLLow11.9-15.1 [facility] HospitalCompontiac general hospital on above:Performed By: #### BMP #### [facility] [address] [place] [address] Mold Capper Helper: Robel Francois MDImmature granulocytes/100 WBC (Bld)0 %Normal0 [facility] HospitalCompontiac general hospital on above:Performed By: #### BMP #### [facility] [address] [place] [address] Mold Capper Helper: Robel Francois MDLymphocytes (Bld) [#/Vol]1.01 10*3/uLLow 1.10-3.70[facility] on above:Performed By: #### BMP #### [facility] [address] [place] [address] Mold Capper Helper: Montse Agustinmphocytes/100 WBC (Bld)7 %Rfd11-43MjsqnCleveland Clinic Mentor HospitalComment on above:Performed By: #### BMP #### [facility] [address] [place] [address] Mold Capper Helper: JAREK AgustinCH (RBC) [Entitic mass]29.8 peRiqbra91.2-33.5 [facility] HospitalComment on above:Performed By: #### BMP #### [facility] [address] [place] [address] Mold Capper Helper: JAREK AgustinCHC (RBC) [Mass/Vol]34.8 g/mDMzgdgs10.4-34.8 [facility] HospitalComment on above:Performed By: #### BMP #### [facility] [address] [place] [address] Mold Capper Helper: JAREK AgustinCV (RBC) [Entitic vol]85.6 lVOpmngu37.6-102.9 [facility] HospitalCompontiac general hospital on above:Performed By: #### BMP #### [facility] [address] [place] [address] Mold Capper Helper: JAREK Agustinonocytes (Bld) [#/Vol]1.15 10*3/uLNormal 0.10-1.20[facility] HospitalComment on above:Performed By: #### BMP #### [facility] [address] [place] [address] Mold Capper Helper: JAREK Agustinonocytes/100 WBC (Bld)9 %Normal3-12[facility] HospitalComment on above:Performed By: #### BMP #### [facility] [address] [facility] [place] [address] Mold Capper Helper: Dominga Agustin (Seg)83 %Zfqa79-79DislaKettering Health Springfield on above:Performed By: #### BMP #### [facility] [address] [facility] [place] [address] Mold Capper Helper: PAIGE Agustin Automated0.0 per 100 WBCNormal0.0[facility] on above:Performed By: #### BMP #### [facility] [address] [place] [address]. [place] [address] Mold Capper Helper: Cecily Agustin mean volume (Bld) [Entitic vol]9.5 fL Normal8.1-13.5[facility] HospitalCompontiac general hospital on above:Performed By: #### BMP #### [facility] [address] [place] [address]. [place] [address] Mold Capper Helper: Montserrat Agustin (Bld) [#/Vol]237 10*3/aKOugrdf120-895 [facility] on above:Performed By: #### BMP #### [facility] [address] [place] [address]. [place] [address] Mold Capper Helper: GREGORIA Agustin (Bld) [#/Vol]2.99 10*6/uLLow3.95-5.11[facility] on above:Performed By: #### BMP #### [facility] [address] [place] [address]. [place] [address] Mold Capper Helper: JEFF Agustin (Bld) [#/Vol]13.6 10*3/uLHigh3.5-11.3MMemorial Health System [facility] on above:Performed By: #### BMP #### [facility] [address] [place] [address] Mold Capper Helper: Joycelyn Agustin, Ionicon 39-07-2810Nykqian [Moles/Vol] 1.15 mmol/LNormal1.13-1.33[facility] HospitalComment on above:Performed By: #### URC #### [facility] [address] [place] [address] Mold Capper Helper: Robel Francois MD [facility] [address] [place] [phone] Mold Capper Helper: Joycelyn Marte, Ionizedon 54-55-7614Lrpoaeh.ionized (Bld) [Moles/Vol]1.15 mmol/L1.13 - 1.33 mmol/LBon Deuel County Memorial HospitalMagnesiumon 61-28-9376Buixtwnti [Mass/Vol]2.0 mg/dL1.6 - 2.4 mg/dLBon Deuel County Memorial HospitalMagnesium [Mass/Vol]2.0 mg/dLNormal1.6-2.4[facility] HospitalComment on above:Performed By: #### URC #### [facility] [address] [place], [place] [address]tesha [place] [address] Mold Capper Helper: Robel Francois MD [facility] HospitalBioNanovations [address] [place] [address] [phone] Mold Capper Helper: Masood Caal MDNo Panel Informationon [id number] and review of laboratory resultsAbnormalBon [facility] Memorial HospitalPhosphoruson 65-74-0401Vjxasqvqwymtye and review of laboratory resultsAbnormalBon Secours St. Mary'S HospitalPhosphate [Mass/Vol]2.3 mg/dLLow2.5 - 4.5 mg/dLBon [facility]uel County Memorial HospitalPhosphate [Mass/Vol]0.8 mg/dLCritically low2.5 - 4.5 mg/dLBon Parkwood HospitalPhosphorus, Inorg.on 56-53-7455Eagdhuqqtq, Inorg.2.3 mg/dLLow2.5-4.5[facility] HospitalComment on above:Performed By: #### MG, #### [facility] [address] [place] [address] Mold Capper Helper: GREG Agustinhosphorus, Inorg.0.8 mg/dLCritically low 2.5-4.5[facility] HospitalComment on above:Performed By: #### URC #### [facility] [address] [place] [address] Mold Capper Helper: Robel Francois MD [address] [phone] Mold Capper Helper: Lei Marte Rejectionon [id number] for rejectionUnable to perform testing: Specimen clotted.[facility] Memorial HospitalComment on above:Performed By: #### URC #### [facility] [address] [place] [address] Mold Capper Helper: Robel Francois MD [facility] [address] [place] [phone] Mold Capper Helper: Imelda Marte of sample.BLOODNormalCleveland Clinic Mentor HospitalComment on above:Performed By: #### URC #### [facility] [address] [place] [address] Mold Capper Helper: Robel Francois MD [facility] [employer] [address] [place] [address] Mold Capper Helper: Masood Caal MDTest orderedCDPNormalCleveland Clinic Mentor Hospital Comment on above:Performed By: #### URC #### [facility] [address] [place] [address] Mold Capper Helper: Robel Francois MD [facility] [address] [place] [address] Mold Capper Helper: Masood Caal MDBasic Metab w/rfx MGon 48-45-3510Byjmn gap [Moles/Vol]10 mmol/LNormal9-16[facility] Mentor HospitalComment on above:Performed By: #### LISHA, MG, CDP, BMPX ####[facility] Wio[address]47 [place] [address] Lab Director: Robel Francois MD#### IOCAL ####[address] [phone] Director: Masood Caal MDCalcium [Mass/Vol]8.0 mg/dLLow8.8-10.2Mkettering health miamisburgy [facility] Comment on above:Performed By: #### LISHA, MG, CDP, BMPX ####[facility] [address] [place] [address] Lab Director: Robel Francois MD#### IOCAL ####[address] [address] Lab Director: NATHALIA Martehloride [Moles/Vol]107 mmol/L Lhtodf13-272CgdqwCleveland Clinic Mentor HospitalComment on above:Performed By: #### LISHA, MG, CDP, BMPX ####[facility] Jmh4808 [place] [address] Lab Director: Robel Francois MD#### IOCAL ####[address] [address] Lab Director: Masood Caal MDCO2 [Moles/Vol]19 mmol/RZvc62-74SsbuoCleveland Clinic Mentor HospitalComment on above:Performed By: #### LISHA, MG, CDP, BMPX ####[facility] Alh1076 [place] [address] Lab Director: Robel Francois MD#### IOCAL ####[address] [phone] Director: NATHALIA Martereatinine [Mass/Vol]0.6 mg/dLNormal 0.50-0.90MerSt. Anthony HospitalCompontiac general hospital on above:Performed By: #### LISHA, MG, CDP, BMPX ####[facility] [address] [place] [address] Lab Director: Robel Francois MD#### IOCAL ####[address] [place] [place], [place] [phone] Lab Director: Masood Caal MDGFR/1.73 sq M.predicted among non-blacks MDRD (S/P/Bld) [Vol rate/Area]mL/min/{1.73_m2}Normal>60[facility] Hospitalcy [facility] HospitalCompontiac general hospital on above: Result Comment: These results are not intended for use in patients <18 years of age. eGFR results are calculated without a race factor using the 2020 CKD-EPI equation. Careful clinical correlation is recommended, particularly when comparing to results calculated using previous equations. The CKD-EPI equation is less accurate in patients with extremes of muscle mass, extra-renal metabolism of creatine, excessive creatine ingestion, or following therapy that affects renal tubular secretion.Performed By: #### LISHA, MG, CDP, BMPX ####[facility] [address] [place] [address] Lab Director: Robel Francois MD#### IOCAL ####[address] [place], [place] [phone] Lab Director: Masood Caal MDGlucose [Mass/Vol]122 mg/rTOcqq32-935PewjbSt. Anthony HospitalComment on above:Performed By: #### LISHA, MG, CDP, BMPX ####[facility] Rjn8663 [place] [address] Lab Director: Robel Francois MD#### IOCAL ####[address] [phone] Director: GREG Marteotassium [Moles/Vol]3.3 mmol/LLow3.7-5.3 [facility] Ment[facility] HospitalComment on above:Performed By: #### LISHA, MG, CDP, BMPX ####[facility] [address] [place] [address] Lab Director: Robel Francois MD#### IOCAL ####[address] [address] Lab Director: VENESSA Marteodium [Moles/Vol]137 mmol/QYdevzp893-072LjvycCleveland Clinic Mentor Hospital Comment on above:Performed By: #### LISHA, MG, CDP, BMPX ####[facility] [address] [place] [address] Lab Director: Robel Francois MD#### IOCAL ####[address] [address] Lab Director: Masood Caal MDUrea nitrogen [Mass/Vol]4 mg/dLLow8-23C[facility] Clinic Mentor HospitalComment on above:Performed By: #### LISHA, MG, CDP, BMPX ####[facility] [address] [place] [address] Lab Director: Robel Francois MD#### IOCAL ####[address] [phone] Director: Masood Caal MDBasic Metabolic Panel w/ Reflex to MGon [id number] gap [Moles/Vol]10 mmol/L9 - 16 mmol/LBon SecEast Adams Rural HealthcareKiio HealthCalcium [Mass/Vol]8.0 mg/dLLow8.8 - 10.2 mg/dLBon SecEast Adams Rural HealthcareKiio HealthChloride [Moles/Vol]107 mmol/L98 - 107 mmol/LBon SecPremier Health Miami Valley Hospital NorthCO2 [Moles/Vol]19 mmol/LLow20 - 31 mmol/L Bon Parkwood HospitalCreatinine [Mass/Vol]0.6 mg/dL0.50 - 0.90 mg/dLBon Secours Trihealth Bethes[facility] Butler HospitalKiio HealthEst, Glom Filt Rate- PINFBon St. Mary'S Medical CenterKiio [facility] Clinic Mercy HospitalComment on above: These results are not intended for use in patients <18 years of age. eGFR results are calculated without a race factor using the 2020 CKD-EPI equation. Careful clinical correlation is recommended, particularly when comparing to results calculated using previous equations. The CKD-EPI equation is less accurate in patients with extremes of muscle mass, extra-renal metabolism of creatine, excessive creatine ingestion, or following therapy that affects renal tubular secretion. Glucose [Mass/Vol]122 mg/fRBjhk35 - 115 mg/dLBon [facility] [employer] Interpretation and review of laboratory resultsAbnormalBon [facility] Potassium [Moles/Vol]3.3 mmol/LLow3.7 - 5.3 mmol/LBon SecPremier Health Miami Valley Hospital NorthSodium [Moles/Vol]137 mmol/L136 - 145 mmol/LBon [facility] efabless corporationUrea nitrogen [Mass/Vol]4 mg/dLLow8 - 23 mg/dLBon [facility] efabless corporationCBC auto differentialon [id number] (Bld) [#/Vol]0.00 10*3/uLBon Secours Trihealth [facility] Butler HospitalKiio [facility] Basophils/100 WBC (Bld)0 %0 - 2 %[facility] Diagnosticsy [facility] Mercy HospitalEosinophils (Bld) [#/Vol]0.00 10*3/uLBon Secours [facility] Kings Mills HospitalEosinophils/100 WBC (Bld)0 %Low1 - 4 %[facility] SystemScranton Gillette CommunicationsErythrocyte distribution width (RBC) [Ratio]14.2 %11.8 - 14.4 %Bon Secbayhealth hospital, [facility]sex campus Mercy HealthHematocrit (Bld) [Volume fraction]30.1 %Low36.3 - 47.1 %Bon SecPremier Health Miami Valley Hospital NorthHemoglobin (Bld) [Mass/Vol]10.4 g/dLLow11.9 - 15.1 g/dLBon Secours [facility] Kings Mills HospitalImmature granulocytes (Bld) [#/Vol]0.19 10*3/uL [facility] HospitalImmature granulocytes/100 WBC (Bld)1 %Ignz3Gox Parkwood HospitalInterpretation and review of laboratory resultsAbnormalBon Parkwood HospitalLymphocytes/100 WBC (Bld)4 %Low24 - 43 %Bon SecLafourche, St. [facility]re[facility] par[facility] Lymphocytes/100 WBC (Bld)0.78 %LowBon [facility] Health System Ontario HospitalH (RBC) [Entitic mass]29.5 pg25.2 - 33.5 pgBon [facility] Health [facility] Ontario HospitalHC (RBC) [Mass/Vol]34.6 g/dL 28.4 - 34.8 g/dLBon SecAkron Children's HospitalV (RBC) [Entitic vol]85.3 fL82.6 - 102.[address] Mary'S HospitalMonocytes/100 WBC (Bld)8 %3 - 12 %[facility] Mary'S HospitalMonocytes/100 WBC (Bld)1.55 %[facility] Neutrophils/100 WBC (Bld)87 %High36 - 65 %[facility] Mary'S HospitalNucleated RBC/100 WBC (Bld) [Ratio]0.0 %0.[address] Mary'S HospitalPlatelet mean volume (Bld) [Entitic vol]9.3 fL8.1 - 13.[address] [facility] Hospital Platelets (Bld) [#/Vol]276 10*3/uLBon Secours Memorial Hospital HealthRBC (Bld) [#/Vol]3.53 10*6/uLLow3.95 - 5.11 m/uLBon Secours St. Mary'S HospitalSegmented neutrophils/100 WBC (Bld)16.88 %HighBon Secours St. Mary'S HospitalWBC other (Bld) [#/Vol]19.4HighBon Secours [facility] SecPremier Health Miami Valley Hospital NorthCBC with Diffon [id number]. Basophil0.00 k/uLNormal0.00-0.20[facility] Ment[facility] HospitalComment on above: Performed By: #### LISHA, MG, CDP, BMPX ####[facility] [address] [place] [address] Lab Director: Robel Francois MD#### IOCAL ####[address] [address] Lab Director: Farideh Marte.Imm.Granulocyte0.19 k/uLNormal0.00-0.30C[facility] Ment[facility] HospitalComment on above:Performed By: #### LISHA, MG, CDP, BMPX ####[facility] Q[address] [place] [address] Lab Director: Robel Francois MD#### IOCAL ####[address] [address] Lab Director: Farideh Marte.Neutrophil (Seg)16.88 k/uLHigh1.50-8.10[facility] HospitalComment on above:Performed By: #### LISHA, MG, CDP, BMPX ####[facility] [address] [place] [address] Lab Director: Robel Francois MD#### IOCAL ####[address] [address] Lab Director: Masood Caal MDBasophils/100 WBC (Bld)0 %Normal0-2[facility] Comment on above:Performed By: #### LISHA, MG, CDP, BMPX ####[facility] [address] [place] [address] Lab Director: Robel Francois MD#### IOCAL ####[address] [address] Lab Director: Masood Caal MDEosinophils (Bld) [#/Vol]0.00 10*3/uLNormal0.00-0.44C[facility] Ment[facility] HospitalComment on above:Performed By: #### LISHA, MG, CDP, BMPX ####[facility] F[address] [place] [address] Lab Director: Robel Francois MD#### IOCAL ####[address] [address] Lab Director: Masood Caal MDEosinophils/100 WBC (Bld)0 %Low1-4[facility] Comment on above:Performed By: #### LISHA, MG, CDP, BMPX ####[address] [address] Lab Director: Robel Francois MD#### IOCAL ####[address] [address] Lab Director: Masood Caal MDImkarture granulocytes/100 WBC (Bld)1 %Ifxf7LmsvlCleveland Clinic Mentor HospitalComment on above:Performed By: #### LISHA, MG, CDP, BMPX ####[address] [address] Lab Director: Robel Francois MD#### IOCAL ####[address] [address] Lab Director: Masood Caal MDLymphocytes (Bld) [#/Vol]0.78 10*3/uLLow1.10-3.70[facility] HospitalComment on above:Performed By: #### LISHA, MG, CDP, BMPX ####[address] [address] Lab Director: Robel Francois MD#### IOCAL ####[address] [address] Lab Director: Masood Caal MDLymphocytes/100 WBC (Bld)4 %Csf54-37NpcpbCleveland Clinic Mentor HospitalComment on above:Performed By: #### LISHA, MG, CDP, BMPX ####[facility] [address] [place] [address] Lab Director: Robel Francois MD#### IOCAL ####[address] [address] Lab Director: Masood Caal MDMonocytes (Bld) [#/Vol]1.55 10*3/uLHigh0.10-1.20[facility] HospitalComment on above:Performed By: #### LISHA, MG, CDP, BMPX ####[facility] [address] [place] [address] Lab Director: Robel Francois MD#### IOCAL ####[address] [address] Lab Director: Masood Caal MDMonocytes/100 WBC (Bld)8 %Normal3-12[facility] HospitalComment on above:Performed By: #### LISHA, MG, CDP, BMPX ####[facility] Pkf[address] [place] [address] Lab Director: Robel Francois MD#### IOCAL ####[address] [address] Lab Director: Masood Caal MDNeutrophil (Seg)87 %Muni87-37ZvkpgSt. Anthony HospitalComment on above:Performed By: #### LISHA, MG, CDP, BMPX ####[facility] [address] [place] [address] Lab Director: Robel Francois MD#### IOCAL ####[address] [phone] Director: Masood Caal MDErythrocyte distribution width (RBC) [Ratio] 14.2 %Pqrdld45.8-14.4[facility] on above:Performed By: #### LISHA, MG, CDP, BMPX ####[facility] Z[address] [place] [address] Lab Director: Robel Francois MD#### IOCAL ####[address] [address])[phone] Director: Masood Caal MDHematocrit (Bld) [Volume fraction]30.1 %Low36.3-47.1MercNew Wayside Emergency HospitalCompontiac general hospital on above:Performed By: #### LISHA, MG, CDP, BMPX ####[address] [address] Lab Director: Robel Francois MD#### IOCAL ####[address] [address] Lab Director: Masood Caal MDHemoglobin (Bld) [Mass/Vol]10.4 g/dLLow11.9-15.1MercFranciscan Health on above:Performed By: #### LISHA, MG, CDP, BMPX ####[address] [address] Lab Director: Robel Francois MD#### IOCAL ####[address] [address] Lab Director: JAREK MarteCH (RBC) [Entitic mass]29.5 bwVyonsm51.2-33.5[facility] HospitalComment on above:Performed By: #### LISHA, MG, CDP, BMPX ####[facility] N[address] [place] [address] [phone] Director: Robel Francois MD#### IOCAL ####[address] [phone] Director: JAREK MarteCHC (RBC) [Mass/Vol]34.6 g/cPTydqqf30.4-34.8[facility] HospitalComment on above: Performed By: #### LISHA, MG, CDP, BMPX ####[address] [address] Lab Director: Robel Francois MD#### IOCAL ####[address] [phone] Director: JAREK MarteCV (RBC) [Entitic vol]85.3 qQZaieqy65.6-102.9[facility] Ment[facility] HospitalCompontiac general hospital on above:Performed By: #### LISHA, MG, CDP, BMPX ####[facility] [address] [place] [address] Lab Director: Robel Francois MD#### IOCAL ####[address] [phone] Director: Masood Caal MDNRBC Automated0.0 per 100 WBCNormal0.0[facility] Ment[facility] HospitalCompontiac general hospital on above:Performed By: #### LISHA, MG, CDP, BMPX ####[facility] X[address] [place] [address] Lab Director: Robel Francois MD#### IOCAL ####[address] [phone] Director: Cecily Marte mean volume (Bld) [Entitic vol]9.3 fLNormal8.1-13.5[facility] HospitalComment on above: Performed By: #### LISHA, MG, CDP, BMPX ####[facility] Q[address] [place] [address] [phone] Director: Robel Francois MD#### IOCAL ####[address] [phone] Director: Montserrat Marte (Bld) [#/Vol]276 10*3/nYFzlhik295-114VqzmgCleveland Clinic Mentor HospitalComment on above:Performed By: #### LISHA, MG, CDP, BMPX ####[address] [phone] Director: Robel Francois MD#### IOCAL ####[address] [phone] Director: GREGORIA Marte (Bld) [#/Vol]3.53 10*6/uLLow3.95-5.11[facility] Comment on above:Performed By: #### LISHA, MG, CDP, BMPX ####[address] [phone] Director: Robel Francois MD#### IOCAL ####[address] [phone] Director: Masood Caal MDWBC (Bld) [#/Vol]19.4 10*3/uL High3.5-11.3[facility] HospitalComment on above:Performed By: #### LISHA, MG, CDP, BMPX ####[facility] Mgq6602 [place] [address] lab Director: Robel Francois MD#### IOCAL ####[facility] M[address]klxlamlp[address] [place] [address] Lab Director: Masood Caal [facility] CHEYENNEalcium, Ionicon [id number] [Moles/Vol]1.10 mmol/LLow1.13-1.33 [facility] HospitalComment on above:Performed By: #### LISHA, MG, CDP, BMPX ####[facility] Ghm2541 [place] [address] lab Director: Robel Francois MD#### IOCAL ####[facility] M[address]vwinjnef[address] [place] [address] Lab Director: NATHALIA Martealcium, Ionizedon 58-05-2823Ynspdjk.ionized (Bld) [Moles/Vol]1.10 mmol/LLow1.13 - 1.33 mmol/LBon Parkwood HospitalInterpretation and review of laboratory resultsAbPrairie Lakes Hospital & Care Center Glucose,Whole Bloodon 15-83-3941Isxjjvk [Mass/Vol]113 mg/dUWdta94-279TrijsCleveland Clinic Mentor HospitalGlucose [Mass/Vol]122 mg/kCMddk83-475FufagCleveland Clinic Mentor Hospital Magnesiumon 75-52-1921Vnbyvimjcfoexg and review of laboratory resultsAbDickenson Community HospitalMagnesium [Mass/Vol]1.5 mg/dLLow1.6 - 2.4 mg/dLBon Deuel County Memorial HospitalMagnesium [Mass/Vol]1.5 mg/dLLow1.6-2.4[facility] HospitalCompontiac general hospital on above:Performed By: #### LISHA, MG, CDP, BMPX ####[facility] Cne[address]22 [place] [address] Lab Director: Robel Francois MD#### IOCAL ####[facility] [address]jas[address]tv[address] [place], [place] [phone] Lab Director: Masood Caal MDNo Panel Informationon [id number] Parkwood HospitalPO Glucose Fingerstickon 73-68-3474Npvidnw [Mass/Vol]113 mg/lBOkld12 - 105 mg/dLBon Parkwood HospitalInterpretation and review of laboratory resultsAbnormalBon Deuel County Memorial HospitalGlucose [Mass/Vol]122 mg/tVQpmi16 - 105 mg/dLBon Parkwood HospitalInterpretation and review of laboratory results AbnormalBon Deuel County Memorial HospitalPhosphoruson 09-23-2024 Phosphate [Mass/Vol]2.9 mg/dL2.5 - 4.5 mg/dLBon Parkwood HospitalPhosphorus, Inorg.on 85-70-4672Tpeadrteyy, Inorg.2.9 mg/dLNormal2.5-4.5[facility] HospitalComment on above:Performed By: #### LISHA, MG, CDP, BMPX ####[facility] [address] [place] [address] Lab Director: Robel Francois MD#### IOCAL ####[facility] [address] [place], [place] [phone] Lab Director: Masood Caal MDBasic Metabolic Panelon [id number] gap [Moles/Vol]12 mmol/L9 - 16 mmol/LBon Parkwood HospitalCalcium [Mass/Vol]9.6 mg/dL8.8 - 10.2 mg/dLBon [facility] Chloride [Moles/Vol]97 mmol/LLow98 - 107 mmol/LBon Parkwood HospitalCO2 [Moles/Vol]23 mmol/L20 - 31 mmol/LBon Parkwood HospitalCreatinine [Mass/Vol] 0.5 mg/dL0.50 - 0.90 mg/dLBon Parkwood HospitalEst, Glom Filt Rate- PINFBon Parkwood HospitalComment on above: These results are not intended for use in patients <18 years of age. eGFR results are calculated without a race factor using the 2020 CKD-EPI equation. Careful clinical correlation is recommended, particularly when comparing to results calculated using previous equations. The CKD-EPI equation is less accurate in patients with extremes of muscle mass, extra-renal metabolism of creatine, excessive creatine ingestion, or following therapy that affects renal tubular secretion. Glucose [Mass/Vol]101 mg/dL82 - 115 mg/dLBon Parkwood HospitalInterpretation and review of laboratory resultsAbnormalBon Secours St. Mary'S HospitalPotassium [Moles/Vol]3.7 mmol/L3.7 - 5.3 mmol/LBon Parkwood HospitalSodium [Moles/Vol] 132 mmol/HVgw849 - 145 mmol/LBon Parkwood HospitalUrea nitrogen [Mass/Vol]4 mg/dLLow8 - 23 mg/dLBon [facility]uel County Memorial HospitalBasic Metabolic Profon 47-14-6382Mkodi gap [Moles/Vol]12 mmol/LNormal9-16[facility] HospitalComment on above:Performed By: #### MG, HH #### [facility] [address] [facility] [place] [address] Mold Capper Helper: NATHALIA Agustinalcium [Mass/Vol]9.6 mg/dLNormal8.8-10.2[facility] HospitalComment on above:Performed By: #### MG, HH #### [facility] [address] [facility] [place] [address] Mold Capper Helper: NATHALIA Agustinhloride [Moles/Vol]97 mmol/OMyh30-894LtwipSt. Anthony HospitalCompontiac general hospital on above:Performed By: #### MG, HH #### [facility] [address] [facility] [place] [address] Mold Capper Helper: NATHALIA AgustinO2 [Moles/Vol]23 mmol/PBwcfml81-72Yyrpp [facility] HospitalCompontiac general hospital on above:Performed By: #### MG, HH #### [facility] Lab [address] [place] [address]. [place] [address] Mold Capper Helper: NATHALIA Agustinreatinine [Mass/Vol]0.5 mg/dLNormal0.50-0.90 [facility] HospitalCompontiac general hospital on above:Performed By: #### MG, HH #### [facility] [address] [place] [address]. [place] [address] Mold Capper Helper: Robel Francois MDGFR/1.73 sq M.predicted among non-blacks MDRD (S/P/Bld) [Vol rate/Area]mL/min/{1.73_m2}Normal>60[facility] HospitalCompontiac general hospital on above:Result Comment: These results are not intended for use in patients <18 years of age. eGFR results are calculated without a race factor using the 2020 CKD-EPI equation. Careful clinical correlation is recommended, particularly when comparing to results calculated using previous equations. The CKD-EPI equation is less accurate in patients with extremes of muscle mass, extra-renal metabolism of creatine, excessive creatine ingestion, or following therapy that affects renal tubular secretion.Performed By: #### MG, HH #### [facility] [address] [place] [address]. [place] [address] Mold Capper Helper: Robel Francois MDGlucose [Mass/Vol]101 mg/tIHeujwd44-040RkwttCleveland Clinic Mentor HospitalCompontiac general hospital on above:Performed By: #### MG, HH #### [facility] Lab [address] [place] [address]. [place] [address] Mold Capper Helper: GREG Agustinotassium [Moles/Vol]3.7 mmol/LNormal3.7-5.3 [facility] on above:Performed By: #### MG, HH #### [facility] Lab [address] [place] [address] Mold Capper Helper: VENESSA Agustinodium [Moles/Vol]132 mmol/RRiu099-938IrrfsCleveland Clinic Mentor HospitalCompontiac general hospital on above:Performed By: #### MG, HH #### [facility] Lab [address] [place] [address] Mold Capper Helper: Robel Francois MDUrea nitrogen [Mass/Vol]4 mg/dLLow8-23[facility] HospitalComment on above:Performed By: #### MG, HH #### [facility] Lab [address] [place] [address] Mold Capper Helper: Robel Francois MDGlucose,Whole Bloodon 66-57-1741Khdwyua [Mass/Vol]141 mg/dOZiuc40-309XotwtCleveland Clinic Mentor HospitalPO Glucose Fingerstickon 87-46-2955Kjmvarl [Mass/Vol]141 mg/gPDhtz88 - 105 mg/dLBon [facility] Interpretation and review of laboratory resultsAbnormalBon [facility] Hospital Bon Parkwood HospitalSpecimen Rejectionon [id number] for rejection Unable to perform testing: Specimen hemolyzed.[facility] Comment on above:Performed By: #### CBC, BMP #### [address] [address] Mold Capper Helper: Imelda Marte of sample.Samaritan HospitalComment on above:Performed By: #### CBC, BMP #### [employer] [facility] [place] [address] Mold Capper Helper: Masood Caal MDTest orderedMemorial Health System [facility] Comment on above:Performed By: #### CBC, BMP #### [employer] [address] [place] [address] Mold Capper Helper: VENESSA Marteurgical Pathology Reporton [id number] Pathology Report(NOTE) Path Number: [id number] -- Diagnosis -- SIGMOID COLON, RESECTION: - DIVERTICULAR DISEASE WITH FOCUS OF PERIDIVERTICULAR FIBROSIS AND SEROSAL FIBROSIS/ADHESIONS, CONSISTENT WITH PREVIOUSLY PERFORATED DIVERTICULITIS. - CLINICAL RECTOVAGINAL FISTULA. - BENIGN/VIABLE SURGICAL MARGINS (WITH FOCAL ACTIVE CRYPTITIS AT ONE MARGIN). - NEGATIVE FOR DYSPLASIA AND MALIGNANCY. Robel Francios M.D. Electronically Signed Out [facility]/09/25/2024 Clinical Information Pre-Op Diagnosis: DIVERTICULITIS Operative Findings: SIGMOID COLON Operation Performed: OPEN SIGMOID RESECTION WITH REPAIR OF RECTOVAGINAL FISTULA se Source of Specimen A: SIGMOID COLON Gross Description KAYLA SIERRA COLON Received in formalin is a 15.0 cm long x 3.5 cm in circumference segment of colon with a moderate amount of attached mesenteric fat. The serosa is pink-degroot with adhesions near one end. Sectioning reveals pink-degroot mucosa and, in the area of the aforementioned adhesions, there is a 1.1 cm diverticulum with an ill-defined fibrotic wall. The fibrosis extends to the external surface with adhesions; however, this region does not appear probe patent. No masses are seen. There is no region of marked stricture. The wall ranges in thickness from 0.1 to 0.4 cm and there is no region of marked stricture. Sectioning of the fat reveals no markedly enlarged nodes. Cassette summary: 1 resection margin shave, 2-4 region of diverticulum entirely. [facility]omal [facility]/se:09/23/2024 Microscopic Description Microscopic examination performed. Processing Lab: Placeholder Interpretation Performed at [address] [address] SURGICAL PATHOLOGY CONSULTATION Patient Name: LILLIAM BAJWA Med Rec: [id number] [facility] ANATOMIC PATHOLOGY [address] [facility]. [place], [place] [address] [facility] 12 LeadOrdered By: Tara Malave on 13-37-2525Etxnhr Qjyk13VAADae [facility] [employer] Work Phone: p Nsgw51fvbcotcSbm [employer] Phone: P-R Jnhireny578 [facility] [employer] Work Phone: [phone]-T Dzzrzysw437 [employer] Phone: [phone] Pwcvhcfl30 [employer] Phone: [phone] Calculation (Bazett)453 msBanner [facility]bird Medical Center [employer] Phone: R Cbiq67vaswmjcBcj [employer] Work Phone: T Nsuc63ghowwirWrr [employer] Phone: [phone] Xtrr62KFYNzm [employer] Phone: [phone] [employer] Phone: [phone] 12 Leadon 71-55-1141Lykbq rhythm Low voltage limbs leads Normal ECG Previous ECG A Fib RVR 06-10-24MHPN NIKO [facility] ortiz MD - 09/09/2024 Sinus rhythm Low voltage limbs leads Normal ECG Previous ECG A Fib RVR 06-10-24 [facility] CBC WITH AUTO DIFFon 08-22-4777Cabpgsjpffg distribution width (RBC) [Ratio]13.8 %11.8 - 14.4 %[facility] HealthcareHematocrit (Bld) [Volume fraction]39.1 %36.3 - 47.1 %[facility] HealthcareHemoglobin (Bld) [Mass/Vol]13.4 g/dL11.9 - 15.1 g/dLDoctors Hospital of SpringfieldH (RBC) [Entitic mass]28.9 pg25.2 - 33.5 pgDoctors Hospital of SpringfieldHC (RBC) [Mass/Vol]34.3 g/dL28.4 - 34.8 g/dL [facility] Hospital of SpringfieldV (RBC) [Entitic vol]84.3 fL82.6 - 102.9 fLLafayette Regional Health CenterPT NRBC UCDYQGOAH23.0 per 100 WBCNOMetropolitan Saint Louis Psychiatric CenterPT PLATELET MLPCA777JIRA HealthcareMHPT WBC COUNT5.8NOWA HealthcarePlatelet mean volume (Bld) [Entitic vol]9.8 fL8.1 - 13.5 [facility] CenterRBC (Bld) [#/Vol]4.64 10*6/uL3.95 - 5.11 m/uLSaint John's Saint Francis HospitalOriginal Ordering Provider: TANISHA ROMAN [facility] Metabolic Panelon 02-54-9050Ioxja gap [Moles/Vol]11 mmol/L9 - 16 mmol/LBon [facility] Medical CenterEmpathy Co [facility] HospitalCalcium [Mass/Vol]10.1 mg/dL8.6 - 10.4 mg/dLBon [facility] Medical CenterScranton Gillette CommunicationsChloride [Moles/Vol]90 mmol/LLow98 - 107 mmol/LBon [facility] CenterScranton Gillette CommunicationsCO2 [Moles/Vol]28 mmol/L20 - 31 mmol/LBon [employer] Creatinine [Mass/Vol]0.6 mg/dL0.6 - 0.9 mg/dLBon [facility] Medical CenterScranton Gillette CommunicationsEst, Almas Burdickt Rate- PINFBon [facility] Medical CenterEmpathy Co [facility] Clinic Mercy HospitalComment on above: These results are not intended for use in patients <18 years of age. eGFR results are calculated without a race factor using the 2020 CKD-EPI equation. Careful clinical correlation is recommended, particularly when comparing to results calculated using previous equations. The CKD-EPI equation is less accurate in patients with extremes of muscle mass, extra-renal metabolism of creatine, excessive creatine ingestion, or following therapy that affects renal tubular secretion. Glucose [Mass/Vol]108 mg/cWDfat74 - 99 mg/dLBon [facility] CenterScranton [employer] Interpretation and review of laboratory resultsAbnormalBon [facility] CenterScranton [employer] Potassium [Moles/Vol]5.2 mmol/L3.7 - 5.3 mmol/LBon [facility] CenterScranton Gillette CommunicationsComment on above:Specimen hemolysis has exceeded the interference as defined by Sudhir. Value may be falsely increased. Suggest recollection if clinically indicated. Sodium [Moles/Vol]129 mmol/HAxr342 - 145 mmol/LBon TekmiUrea nitrogen [Mass/Vol]3 mg/dLLow8 - 23 mg/dLBon [facility] CenterEmpathy Co [facility] Mercy HospitalBon [facility] CenterEmpathy Co [facility] HospitalBasic Metabolic Profon 37-43-4128Jwosw gap [Moles/Vol]11 mmol/L Normal9-16[facility] on above:Performed By: #### CBC, BMP #### [facility] [address] [place] [address] Mold Capper Helper: Masood Caal MDCalcium [Mass/Vol]10.1 mg/dLNormal8.6-10.4[facility] on above:Performed By: #### CBC, BMP #### [facility] [address] [place] [address] Mold Capper Helper: Masood Caal MDChloride [Moles/Vol]90 mmol/OOpt92-729ImoncLourdes Medical Center on above:Performed By: #### CBC, BMP #### [facility] [address] [place] [address] [employer] C[employer] Helper: Masood Caal MDCO2 [Moles/Vol]28 mmol/DFfxkes69-35PmwktKettering Health Springfield on above:Performed By: #### CBC, BMP #### [facility] [address] [place] [address] Mold Capper Helper: NATHALIA Martereatinine [Mass/Vol]0.6 mg/dLNormal0.6-0.9[facility] on above:Performed By: #### CBC, BMP #### [address] [address] Mold Capper Helper: Masood Caal MDGFR/1.73 sq M.predicted among non-blacks MDRD (S/P/Bld) [Vol rate/Area]mL/min/{1.73_m2}Normal>60MerLourdes Medical Center on above:Result Comment: These results are not intended for use in patients <18 years of age. eGFR results are calculated without a race factor using the 2020 CKD-EPI equation. Careful clinical correlation is recommended, particularly when comparing to results calculated using previous equations. The CKD-EPI equation is less accurate in patients with extremes of muscle mass, extra-renal metabolism of creatine, excessive creatine ingestion, or following therapy that affects renal tubular secretion.Performed By: #### CBC, BMP #### [address] [address] Mold Capper Helper: Masood Caal MDGlucose [Mass/Vol]108 mg/jGUeyi62-66JaeioMemorial Health System Marietta Memorial Hospital on above:Performed By: #### CBC, BMP #### [address] [address] Mold Capper Helper: RGEG Marteotassium [Moles/Vol]5.2 mmol/LNormal3.7-5.3 [facility] on above:Result Comment: Specimen hemolysis has exceeded the interference as defined by Sudhir. Value may be falsely increased. Suggest recollection if clinically indicated.Performed By: #### GIOVANNI, BMP #### [place] [address] Mold Capper Helper: VENESSA Marteodium [Moles/Vol]129 mmol/AKwg438-194JbucrKettering Health Springfield on above:Performed By: #### GIOVANNI, BMP #### [address] [address] Mold Capper Helper: Masood Caal MDUrea nitrogen [Mass/Vol]3 mg/dLLow8-23[facility] on above:Performed By: #### GIOVANNI, BMP #### [place] [address] Mold Capper Helper: NATHALIA Martebilly 89-24-4030Zkcsdmpqdwk distribution width (RBC) [Ratio]13.8 %Wpcykq12.8-14.4Bon [facility] on above: Performed By: #### GIOVANNI, BMP #### [place] [address] Mold Capper Helper: Masood Caal MDHematocrit (Bld) [Volume fraction]39.1 %Normal 36.3-47.1[facility] Mercy HealthComment on above:Performed By: #### CBC, BMP #### [address] [address] Mold Capper Helper: Masood Caal MDHemoglobin (Bld) [Mass/Vol]13.4 g/dLNormal 11.9-15.1[facility] HealthComment on above:Performed By: #### CBC, BMP #### [place] [address] Mold Capper Helper: JAREK MarteCH (RBC) [Entitic mass]28.9 dcJurlyl37.2-33.5 [facility] HealthComment on above:Performed By: #### CBC, BMP #### [place] [address] Mold Capper Helper: JAREK MarteCHC (RBC) [Mass/Vol]34.3 g/fYFtaahp76.4-34.8Bon SecLafourche, St[facility] Charles and Terrebonne parishes HealthComment on above:Performed By: #### CBC, BMP #### [place] [address] Mold Capper Helper: JAREK MarteCV (RBC) [Entitic vol]84.3 zQNtqjvc64.6-102.[address] [facility] HealthComment on above:Performed By: #### CBC, BMP #### [place] [address] Mold Capper Helper: Cecily Marte mean volume (Bld) [Entitic vol]9.8 fL Normal8.1-13.5[facility] HealthComment on above:Performed By: #### CBC, BMP #### [place] [address] Mold Capper Helper: Cece Martetedaysi (Bld) [#/Vol]356 10*3/kIRdnhok693-199 [facility] Hospitaly HealthComment on above:Performed By: #### CBC, BMP #### [address] [address] Mold Capper Helper: MICHAEL MarteBC (Bld) [#/Vol]4.64 10*6/uLNormal3.95-5.11Bon [facility] on above:Performed By: #### CBC, BMP #### [address] [address] Mold Capper Helper: ROBERT Marteucleated RBC/100 WBC (Bld) [Ratio]0.0 %0.[address] Mary'S HospitalWBC other (Bld) [#/Vol]5.8Bon [facility] HospitalNRBC Automated0.0 per 100 WBCNormal0.0[facility] HospitalCompontiac general hospital on above:Performed By: #### GIOVANNI, BMP #### [address] [address] Mold Capper Helper: Masood Caal MDWBC (Bld) [#/Vol]5.8 10*3/uLNormal3.5-11.3[facility] HospitalCompontiac general hospital on above:Performed By: #### GIOVANNI, BMP #### [address] [address] Mold Capper Helper: Masood Caal MDTYPE AND SCREENon 89-34-5378IPB and Rh group Nom (Bld)Blood group O Rh(D) positiveBon Secours St. Mary'S HospitalArm Band NumberBE [id number] Secours St. Mary'S HospitalBlood Bank Sample Xpoovaqbon64/02/2025,2359Bon [facility] Medical Centerood group antibodies identified NomNegativeSentara Virginia Beach General HospitalType + Screenon 74-32-1227Iyij + Screen Sample Expiration 09/25/2024,2359 Arm Band Number BE [id number] ABO/Rh(D) O POSITIVE Antibody Screen NEGATIVENormalMerSt. Anthony HospitalCompontiac general hospital on above:Performed By: #### MG, HH #### [facility] [address] [place] [address] Mold Capper Helper: LEAH Agustin CHEST (2 VW)on 30-60-4460RI CHEST (2 VW) EXAMINATION: TWO XRAY VIEWS OF THE CHEST 09/08/2024 2:23 pm COMPARISON: 06/08/2024 HISTORY: ORDERING SYSTEM PROVIDED HISTORY: Pre-op testing TECHNOLOGIST PROVIDED HISTORY: preop history COPD Reason for Exam: preop history COPD, Pre-op testing, surg scheduled 09/22 FINDINGS: Heart size normal. No pulmonary vascular congestion. No pneumothorax. No acute airspace disease. No pleural effusion. Probable emphysematous changes in both lungs with linear scarring. IMPRESSION: Probable emphysematous changes in both lungs with linear scarring Otherwise, no acute cardiopulmonary process Interpreted by: Vasiliy Adamson MD Signed by: Vasiliy Adamson MD 09/08/24 Final resultNormalMerNorthridge Hospital Medical CenterXR Chest 2 Viewson 09-08-2024 Probable emphysematous changes in both lungs with linear scarring Otherwise, no acute cardiopulmonary process [facility] CONSOLIDATEDEXAMINATION: TWO XRAY VIEWS OF THE CHEST 09/08/2024 2:23 pm COMPARISON: 06/08/2024 HISTORY: ORDERING SYSTEM PROVIDED HISTORY: Pre-op testing TECHNOLOGIST PROVIDED HISTORY: preop history COPD Reason for Exam: preop history COPD, Pre-op testing, surg scheduled 09/22 FINDINGS: Heart size normal. No pulmonary vascular congestion. No pneumothorax. No acute airspace disease. No pleural effusion. Probable emphysematous changes in both lungs with linear scarring. [facility] Vasiliy Pan MD - 09/08/2024 EXAMINATION: TWO XRAY VIEWS OF THE CHEST 09/08/2024 2:23 pm COMPARISON: 06/08/2024 HISTORY: ORDERING SYSTEM PROVIDED HISTORY: Pre-op testing TECHNOLOGIST PROVIDED HISTORY: preop history COPD Reason for Exam: preop history COPD, Pre-op testing, surg scheduled 09/22 FINDINGS: Heart size normal. No pulmonary vascular congestion. No pneumothorax. No acute airspace disease. No pleural effusion. Probable emphysematous changes in both lungs with linear scarring. IMPRESSION: Probable emphysematous changes in both lungs with linear scarring Otherwise, no acute cardiopulmonary process [facility] Mary'S HospitalRadiology Study observation (narrative)[facility] St. Mary'S HospitalXR Chest 2 ViewsOrdered By: Vasiliy Adamson on 84-86-2078NvqBon Secours [facility] Work Phone: MHPT HISTOLOGY ST VINCENTon [phone] HISTOLOGY ST [facility]CO[facility](NOTE) Path Number: [id number] -- Diagnosis -- A. SIGMOID POLYP, BIOPSY: Inspissated mucus and debris only. Flora Marx M.D. Electronically Signed Out 11/03/2807/22/2024 Clinical Information Pre-Op Diagnosis: S/P COLOSTOMY Operative Findings: SIGMOID POLYP Operation Performed: COLONOSCOPY FROM RECTUM AND COLOSTOMY se Source of Specimen A: SIGMOID POLYP Gross Description LILLIAM FRANCISCOPreet BROOKS Received in formalin are multiple degroot-white fragments of possible tissue or mucous, 1.7 x 0.9 x 0.3 cm in aggregate. Entirely 1cs. jj tm Valentina Ardon/se:07/21/2024 Microscopic Description Microscopic examination performed. Processing Lab: [place] [id number] Interpretation Performed at [place] [id number] SURGICAL PATHOLOGY CONSULTATION Patient Name: LILLIAM BAJWA Med Rec: [id number] [facility] ANATOMIC PATHOLOGY [address] [place] [address]. [place], [place] [address] [facility] HospitalOriginal Ordering Provider: ZA PFEIFFER [facility] PittsburghSurgical Pathology Reporton [id number] Pathology Report(NOTE) Path Number: [id number] -- Diagnosis -- A. SIGMOID POLYP, BIOPSY: Inspissated mucus and debris only. Flora Marx M.D. Electronically Signed Out [facility]07/22/2024 Clinical Information Pre-Op Diagnosis: S/P COLOSTOMY Operative Findings: SIGMOID POLYP Operation Performed: COLONOSCOPY FROM RECTUM AND COLOSTOMY se Source of Specimen A: SIGMOID POLYP Gross Description LILLIAM ROHRBACHER, UNDESIGNATED Received in formalin are multiple degroot-white fragments of possible tissue or mucous, 1.7 x 0.9 x 0.3 cm in aggregate. Entirely 1cs. lalaj tm Valentina Ardon/:07/21/2024 Microscopic Description Microscopic examination performed. Processing Lab: [address] [address] Interpretation Performed at [address] [address] SURGICAL PATHOLOGY CONSULTATION Patient Name: LILLIAM BAJWA Rec: [id number] [facility] ANATOMIC PATHOLOGY [address] [place] [address] NoKettering Health with Diffon 97-45-3673Epz. Basophil<0.46Egbebk5.00-0.20[facility] on above:Performed By: #### CBC, BMP #### [address] [address] Mold Capper Helper: Farideh Marte. Eosinophil<0.11Mrldjm7.00-0.44[facility] on above:Performed By: #### CBC, BMP #### [address] [address] Mold Capper Helper: Farideh Marte.Imm.Granulocyte0.03 k/uLNormal0.00-0.30[facility] on above:Performed By: #### CBC, BMP #### [address] [address] Mold Capper Helper: Farideh Marte.Neutrophil (Seg)6.05 k/uLNormal1.50-8.10 [facility] on above:Performed By: #### CBC, BMP #### [address] [address] Mold Capper Helper: Masood Caal MDBasophils/100 WBC (Bld)0 %Normal0-2MercFranciscan Health on above:Performed By: #### CBC, BMP #### [address] [address] Mold Capper Helper: Masood Caal MDEosinophils/100 WBC (Bld)0 %Low1-4[facility] on above:Performed By: #### CBC, BMP #### [address] [address] Mold Capper Helper: Masood Caal MDErythrocyte distribution width (RBC) [Ratio]15.3 %High11.8-14.4[facility] on above:Performed By: #### CBC, BMP #### [place] [address] Mold Capper Helper: Masood Caal MDHematocrit (Bld) [Volume fraction]28.4 %Low 36.3-47.1Mkettering health miamisburgy [facility] on above:Performed By: #### CBC, BMP #### [address] [address] Mold Capper Helper: Masood Caal MDHemoglobin (Bld) [Mass/Vol]9.6 g/dLLow11.9-15.1 [facility] on above:Performed By: #### CBC, BMP #### [address] [address] Mold Capper Helper: Masood Caal MDImmature granulocytes/100 WBC (Bld)0 %Normal0 [facility] on above:Performed By: #### CBC, BMP #### [address] [address] Mold Capper Helper: Masood Caal MDLymphocytes (Bld) [#/Vol]1.20 10*3/uLNormal 1.10-3.70[facility] on above:Performed By: #### CBC, BMP #### [place] [address] Mold Capper Helper: Masood Caal MDLymphocytes/100 WBC (Bld)15 %Mib46-09HgsjmKettering Health Springfield on above:Performed By: #### CBC, BMP #### [place] [address] Mold Capper Helper: JAREK MarteCH (RBC) [Entitic mass]32.8 tnFedefc43.2-33.5 [facility] on above:Performed By: #### CBC, BMP #### [place] [address] Mold Capper Helper: JAREK MarteCHC (RBC) [Mass/Vol]33.8 g/pRDkmeqb77.4-34.8 [facility] on above:Performed By: #### CBC, BMP #### [place] [address] Mold Capper Helper: JAREK MarteCV (RBC) [Entitic vol]96.9 nIPkwsod43.6-102.9 [facility] on above:Performed By: #### CBC, BMP #### [place] [address] Mold Capper Helper: Masood Caal MDMonocytes (Bld) [#/Vol]0.87 10*3/uLNormal 0.10-1.20[facility] on above:Performed By: #### CBC, BMP #### [address] [address] Mold Capper Helper: JAREK Marteonocytes/100 WBC (Bld)11 %Normal3-12[facility] on above:Performed By: #### CBC, BMP #### [facility] [address] [place] [address] Mold Capper Helper: Dominga Marte (Seg)74 %Hups22-20VpuxgKettering Health Springfield on above:Performed By: #### CBC, BMP #### [address] [address] Mold Capper Helper: Masood Caal MDNRNENA Automated0.0 per 100 WBCNormal0.0[facility] on above:Performed By: #### CBC, BMP #### [facility] [address] [place] [address] Mold Capper Helper: Cece Martetelet mean volume (Bld) [Entitic vol]10.1 fL Normal8.1-13.5[facility] on above:Performed By: #### CBC, BMP #### [address] [address] Mold Capper Helper: Masood Caal MDPlatelets (Bld) [#/Vol]264 10*3/iCXpajso812-847 [facility] on above:Performed By: #### CBC, BMP #### [address] [address] Mold Capper Helper: Masood Caal MDRBC (Bld) [#/Vol]2.93 10*6/uLLow3.95-5.11[facility] on above:Performed By: #### CBC, BMP #### [facility] [address] [place] [address] Mold Capper Helper: GREGORIA Marte morphology finding Nom (Bld)ANISOCYTOSIS PRESENTNormalKettering Health Springfield on above:Performed By: #### CBC, BMP #### [facility] [address] [place] [address] Mold Capper Helper: Masood Caal MDWBC (Bld) [#/Vol]8.2 10*3/uLNormal3.5-11.3[facility] HospitalCompontiac general hospital on above:Performed By: #### CBC, BMP #### [facility] [address] [place] [address] Mold Capper Helper: NATHALIA Marteomp Metabolic Pr/rfx MGon 07-33-1353Ztgqfebos [Moles/Vol]3.4 mmol/LLow3.7-5.3[facility] HospitalComment on above:Performed By: #### CBC, BMP #### [facility] [address] [place] [address] Mold Capper Helper: Masood Caal MDAlbumin [Mass/Vol]3.5 g/dLNormal3.5-5.2[facility] HospitalComment on above:Performed By: #### CBC, BMP #### [facility] [address] [place] [address] Mold Capper Helper: Macario Marteline Phos85 U/IYkccpa73-187HfrfvCleveland Clinic Mentor HospitalCompontiac general hospital on above:Performed By: #### CBC, BMP #### [facility] [address] [place] [address] Mold Capper Helper: Masood Caal MDALT [Catalytic activity/Vol]45 U/LHigh5-33[facility] on above:Performed By: #### CBC, BMP #### [facility] [address] [place] [address] Mold Capper Helper: Masood Caal MDAnion gap [Moles/Vol]11 mmol/LNormal9-17[facility] on above:Performed By: #### CBC, BMP #### [facility] [address] [place] [address] Mold Capper Helper: Masood Madoff, MDAST [Catalytic activity/Vol]67 U/LHigh<32MerSt. Anthony HospitalComment on above:Performed By: #### CBC, BMP #### [address] [address] Mold Capper Helper: Masood Caal MDBilirubin [Mass/Vol]0.3 mg/dLNormal0.3-1.2MDoctors HospitalComment on above:Performed By: #### CBC, BMP #### [address] [address] Mold Capper Helper: Masood Caal MDBUN/CRE RatioCan not be calculatedNormal9-20 [facility] HospitalComment on above:Performed By: #### CBC, BMP #### [address] [address] Mold Capper Helper: NATHALIA Martealcium [Mass/Vol]8.3 mg/dLLow8.6-10.4[facility] HospitalComment on above:Performed By: #### CBC, BMP #### [address] [address] Mold Capper Helper: NATHALIA Martehloride [Moles/Vol]100 mmol/EJtnrva33-966FwgdlCleveland Clinic Mentor HospitalComment on above:Performed By: #### CBC, BMP #### [address] [address] Mold Capper Helper: Masood Caal MDCO2 [Moles/Vol]26 mmol/OHsurlu99-05OwmndCleveland Clinic Mentor HospitalComment on above:Performed By: #### CBC, BMP #### [address] [address] Mold Capper Helper: Masood Caal MDCreatinine [Mass/Vol]mg/dLLow0.5-0.9[facility] Ment[facility] HospitalComment on above:Performed By: #### CBC, BMP #### [address] [place] [address] Mold Capper Helper: Masood Caal MDeGFRCan not be calculatedNormal>60[facility] on above:Result Comment: These results are not intended for use in patients <18 years of age. eGFR results are calculated without a race factor using the 2020 CKD-EPI equation. Careful clinical correlation is recommended, particularly when comparing to results calculated using previous equations. The CKD-EPI equation is less accurate in patients with extremes of muscle mass, extra-renal metabolism of creatine, excessive creatine ingestion, or following therapy that affects renal tubular secretion.Performed By: #### GIOVANNI, BMP #### [address] [address] Mold Capper Helper: Masood Caal MDGlucose [Mass/Vol]101 mg/oJFuos00-79NahkzMemorial Health System Marietta [facility] Hospital on above:Performed By: #### GIOVANNI, BMP #### [address] [address] Mold Capper Helper: Masood Caal MDProtein [Mass/Vol]6.0 g/dLLow6.4-8.3Mkettering health miamisburgy [facility] on above:Performed By: #### GIOVANNI, BMP #### [facility] [address] [place] [address] Mold Capper Helper: VENESSA Marteodium [Moles/Vol]137 mmol/ZNfpian747-509CmntdKettering Health Springfield on above:Performed By: #### CBC, BMP #### [address] [address] Mold Capper Helper: Masood Caal MDUrea nitrogen [Mass/Vol]3 mg/dLLow8-23[facility] on above:Performed By: #### CBC, BMP #### [address] [address] Mold Capper Helper: Masood Caal MDGlucose,Whole Bloodon 76-07-5978Qqdkbvv [Mass/Vol]92 mg/fZAjlczn21-261CzwpnSt. Anthony HospitalGlucose [Mass/Vol]108 mg/dL Ovsm77-967GjxqlSt. Anthony HospitalMagnesiumon 84-59-6047Tcaiopgna [Mass/Vol]2.1 mg/dLNormal1.6-2.6[facility] HospitalComment on above:Performed By: #### CBC, BMP #### [address] [address] Mold Capper Helper: GREG Martehosphorus, Inorg.on 85-22-9857Lpwkdpgcqs, Inorg.2.5 mg/dLLow2.6-4.5[facility] Ment[facility] HospitalComment on above:Performed By: #### CBC, BMP #### [address] [address] Mold Capper Helper: Feliciano Marteoniaon 10-20-7587Lwfpqbm (P) [Moles/Vol]23 umol/HAjxkkd76-24GbvpsSt. Anthony HospitalComment on above:Performed By: #### MG, HH #### [facility] [address] [place] [address] Mold Capper Helper: NATHALIA Agustin with Diffon 42-90-0513Ldr. Basophil0.00 k/uLNormal0.00-0.20MerSt. Anthony HospitalComment on above:Performed By: #### CBC, BMP #### [address] [address] Mold Capper Helper: MDAbs. RosannaImm.Granulocyte0.15 k/uLNormal0.00-0.30MerSt. Anthony HospitalCompontiac general hospital on above:Performed By: #### CBC, BMP #### [address] [address] Mold Capper Helper: MDAbs. RosannaNeutrophil (Seg)13.43 k/uLHigh1.50-8.10[facility] on above:Performed By: #### CBC, BMP #### [address] [address] Mold Capper Helper: Masood Caal MDBasophils/100 WBC (Bld)0 %Normal0-2[facility] on above:Performed By: #### CBC, BMP #### [address] [address] Mold Capper Helper: Masood Caal MDEosinophils (Bld) [#/Vol]0.00 10*3/uLNormal 0.00-0.44[facility] on above:Performed By: #### CBC, BMP #### [address] [address] Mold Capper Helper: RUMA Marteosinophils/100 WBC (Bld)0 %Low1-4MerL[facility]des [facility] Center on above:Performed By: #### CBC, BMP #### [address] [address] Mold Capper Helper: Christel Martemature granulocytes/100 WBC (Bld)1 %Zney3GluumKettering Health [facility] on above:Performed By: #### CBC, BMP #### [address] [address] Mold Capper Helper: Masood Caal MDLymphocytes (Bld) [#/Vol]0.44 10*3/uLLow 1.10-3.70[facility] on above:Performed By: #### CBC, BMP #### [address] [address] Mold Capper Helper: Montse Martemphocytes/100 WBC (Bld)3 %Cjr54-47HcgwmKettering Health Springfield on above:Performed By: #### CBC, BMP #### [address] [address] Mold Capper Helper: JAREK Marteonocytes (Bld) [#/Vol]0.58 10*3/uLNormal 0.10-1.20[facility] on above:Performed By: #### CBC, BMP #### [address] [address] Mold Capper Helper: JAREK Marteonocytes/100 WBC (Bld)4 %Normal3-12[facility] on above:Performed By: #### CBC, BMP #### [address] [address] Mold Capper Helper: Masood Caal MDNeutrophil (Seg)92 %Ictz11-81ZaemhKettering Health Springfield on above:Performed By: #### CBC, BMP #### [address] [address] Mold Capper Helper: Masood Caal MDErythrocyte distribution width (RBC) [Ratio]15.6 %High11.8-14.4[facility] on above:Performed By: #### CBC, BMP #### [address] [address] Mold Capper Helper: Masood Caal MDHematocrit (Bld) [Volume fraction]29.0 %Low 36.3-47.1MMem[facility] on above:Performed By: #### CBC, BMP #### [address] [address] Mold Capper Helper: Masood Caal MDHemoglobin (Bld) [Mass/Vol]10.1 g/dLLow11.9-15.1 [facility] on above:Performed By: #### CBC, BMP #### [address] [address] Mold Capper Helper: JAREK MarteCH (RBC) [Entitic mass]33.0 sbRtgbrn75.2-33.5 [facility] on above:Performed By: #### CBC, BMP #### [address] [address] Mold Capper Helper: JAREK MarteCHC (RBC) [Mass/Vol]34.8 g/bBGmakfv93.4-34.8 [facility] on above:Performed By: #### CBC, BMP #### [address] [address] Mold Capper Helper: JAREK MarteCV (RBC) [Entitic vol]94.8 oDLdxaym37.6-102.9 [facility] on above:Performed By: #### CBC, BMP #### [address] [address] Mold Capper Helper: Masood Caal MDNRBC Automated0.0 per 100 WBCNormal0.0[facility] on above:Performed By: #### CBC, BMP #### [address] [address] Mold Capper Helper: Cecily Marte mean volume (Bld) [Entitic vol]8.9 fL Normal8.1-13.5[facility] on above:Performed By: #### CBC, BMP #### [address] [address] Mold Capper Helper: Montserrat Marte (Bld) [#/Vol]289 10*3/uBDyocht772-066 [facility] on above:Performed By: #### CBC, BMP #### [address] [address] Mold Capper Helper: Masood Caal MDRBC (d) [#/Vol]3.06 10*6/uLLow3.95-5.11[facility]cy [facility] HospitalCompont[facility] on above:Performed By: #### GIOVANNI, BMP #### [facility] [address] [place] [address] Mold Capper Helper: Masood Caal MDWBC (d) [#/Vol]14.6 10*3/uLHigh3.5-11.3[facility] HospitalComp[facility] on above:Performed By: #### GIOVANNI, BMP #### [address] [address] Mold Capper Helper: NATHALIA Marteomp Metabolic Pr/rfx MGon 75-99-8388Suwdjxv [Mass/Vol]3.7 g/dLNormal3.5-5.2[facility] HospitalCompont[facility] on above:Performed By: #### GIOVANNI, BMP #### [facility] [address] [place] [address] Mold Capper Helper: Masood Caal MDAlkaline Phos88 U/GTilfpk64-045FlxzmKettering Health [facility] on above:Performed By: #### GIOVANNI, BMP #### [facility] [address] [place] [address] Mold Capper Helper: Masood Caal MDALT [Catalytic activity/Vol]29 U/LNormal5-33 [facility] on above:Performed By: #### GIOVANNI, BMP #### [facility] [address] [place] [address] Mold Capper Helper: Masood Caal MDAnibilly gap [Moles/Vol]10 mmol/LNormal9-17[facility]Comp[facility] on above:Performed By: #### GIOVANNI, BMP #### [facility] [address] [place] [address] Mold Capper Helper: Masood Caal MDAST [Catalytic activity/Vol]48 U/LHigh<32[facility] HospitalComment on above:Performed By: #### CBC, BMP #### [facility] [address] [place] [address] Mold Capper Helper: Masood Caal MDBilirubin [Mass/Vol]0.4 mg/dLNormal0.3-1.2Mkettering health miamisburgy [facility] HospitalComment on above:Performed By: #### CBC, BMP #### [address] [address] Mold Capper Helper: Masood Caal MDBUN/CRE RatioCan not be calculatedNormal9-20 [facility] HospitalComp[facility] on above:Performed By: #### CBC, BMP #### [address] [address] Mold Capper Helper: NATHALIA Martealcium [Mass/Vol]8.2 mg/dLLow8.6-10.4[facility] HospitalCompontiac [facility] hospital on above:Performed By: #### CBC, BMP #### [address] [address] Mold Capper Helper: NATHALIA Martehloride [Moles/Vol]98 mmol/ESpcbog30-334CerxiKettering Health Springfield on above:Performed By: #### CBC, BMP #### [address] [address] Mold Capper Helper: Masood Caal MDCO2 [Moles/Vol]25 mmol/WUvcran50-90XstklKettering Health Springfield on above:Performed By: #### CBC, BMP #### [address] [address] Mold Capper Helper: Masood Caal MDCreatinine [Mass/Vol]mg/dLLow0.5-0.9[facility] on above:Performed By: #### CBC, BMP #### [address] [address] Mold Capper Helper: Masood Caal MDeGFRCan not be calculatedNormal>60[facility] on above:Result Comment: These results are not intended for use in patients <18 years of age. eGFR results are calculated without a race factor using the 2020 CKD-EPI equation. Careful clinical correlation is recommended, particularly when comparing to results calculated using previous equations. The CKD-EPI equation is less accurate in patients with extremes of muscle mass, extra-renal metabolism of creatine, excessive creatine ingestion, or following therapy that affects renal tubular secretion.Performed By: #### CBC, BMP #### [facility] [address] [place] [address] Mold Capper Helper: Masood Caal MDGlucose [Mass/Vol]131 mg/iXPhfq85-30Ziwkj [facility] HospitalCompontiac [facility] hospital on above:Performed By: #### CBC, BMP #### [facility] [address] [place] [address] Mold Capper Helper: GREG Marteotassium [Moles/Vol]3.3 mmol/LLow3.7-5.3[facility] HospitalCompontiac [facility] hospital on above:Performed By: #### CBC, BMP #### [facility] [address] [place] [address] Mold Capper Helper: Masood Caal MDProtein [Mass/Vol]6.3 g/dLLow6.4-8.3[facility] on above:Performed By: #### CBC, BMP #### [facility] [address] [place] [address] Mold Capper Helper: Masood Caal MDSodium [Moles/Vol]133 mmol/XOjk109-536Bhjyf [facility] on above:Performed By: #### CBC, BMP #### [facility] [address] [place] [address] Mold Capper Helper: Masood Caal MDUrea nitrogen [Mass/Vol]2 mg/dLLow8-23[facility] on above:Performed By: #### CBC, BMP #### [facility] [address] [place] [address] Mold Capper Helper: Masood Caal MDGlucose,Whole Bloodon 39-30-6067Kkpdduk [Mass/Vol]140 mg/wRZzjn08-175Gaafw [facility] HospitalMagnesiumon 06-10-2024 Magnesium [Mass/Vol]1.9 mg/dLNormal1.6-2.6[facility] HospitalComment on above:Performed By: #### CBC, BMP #### [facility] [address] [place] [address] Mold Capper Helper: Annetta Martesphoranulfo, Inorg.on 85-27-9995Yegyzqsrep, Inorg.1.1 mg/dLLow2.6-4.5[facility] HospitalCompontiac [facility] hospital on above:Performed By: #### CBC, BMP #### [facility] [address] [place] [address] Mold Capper Helper: GREG Martehosphoruregan, Inorg.1.0 mg/dLLow2.6-4.5[facility] on above:Performed By: #### CBC, BMP #### [facility] [address] [place] [address] Mold Capper Helper: CHELO Marte w/Reflex Cultureon 60-86-1556Izbhluajt, SemiQt,UrNegativeNormalNEGKettering Health Springfield on above:Performed By: #### CBC, BMP #### [facility] [address] [place] [address] Mold Capper Helper: Prasanna Marte, UrineNegativeNormalNEGMerLourdes Medical Center on above:Performed By: #### CBC, BMP #### [facility] [address] [place] [address] Mold Capper Helper: NATHALIA Martelarity (U)ClearNormalCLEARMercy [facility] on above:Performed By: #### CBC, BMP #### [facility] [address] [place] [address] Mold Capper Helper: NATHALIA Marteolor (U)YellowNormalYELMerSt. Anthony Hospital Comment on above:Performed By: #### CBC, BMP #### [facility] [address] [place] [address] Mold Capper Helper: Masood Caal MDGlucose Ql (U)NegativeNormalNEGMerLourdes Medical Center on above:Performed By: #### CBC, BMP #### [facility] [address] [place] [address] Mold Capper Helper: Masood Caal MDKetones Ql (U)NegativeNormalNEGMerLourdes Medical Center on above:Performed By: #### CBC, BMP #### [facility] [address] [place] [address] Mold Capper Helper: Masood Caal MDLeukocyte esterase Test strip Ql (U)SMALL AbnormalNEGMerSt. Anthony HospitalCompontiac general hospital on above:Performed By: #### CBC, BMP #### [facility] [address] [place] [address] Mold Capper Helper: Masood Caal MDNitrite,UrNegativeNormalNEGMerLourdes Medical Center on above:Performed By: #### CBC, BMP #### [facility] [address] [place] [address] Mold Capper Helper: GREG Marte,Ur8.5Vpirmz6.0-8.0[facility] Comment on above:Performed By: #### CBC, BMP #### [facility] [address] [place] [address] Mold Capper Helper: GREG Marterotein Ql (U)NegativeNormalNEGMercy [facility] HospitalComment on above:Performed By: #### CBC, BMP #### [facility] [address] [place] [address] Mold Capper Helper: VENESSA Martepec. Hollister,Ur1.438Cgqhit8.005-1.030MerSt. Anthony HospitalComment on above:Performed By: #### CBC, BMP #### [facility] [address] [place] [address] Mold Capper Helper: Masood Caal MDUrobilinogen,UrNormalNormal0.0-1.0[facility] HospitalComment on above:Performed By: #### CBC, BMP #### [facility] [address] [place] [address] Mold Capper Helper: Masood Caal MDUrinalysis,Microon 70-98-7547NxwschrnTTWD AbnormalNONEMercNew Wayside Emergency HospitalComment on above:Performed By: #### CBC, BMP #### [facility] [address] [place] [address] Mold Capper Helper: Masood Caal MDEpithelial cells LM Ql (Urine sed)5 TO 10Normal 0-5[facility] HospitalComment on above:Performed By: #### CBC, BMP #### [facility] [address] [place] [address] Mold Capper Helper: Elizabeth Marte RBC'sNoneNormal0-2[facility] Comment on above:Performed By: #### CBC, BMP #### [facility] [address] [place] [address] Mold Capper Helper: Elizabeth Marte WBC's5 TO 48Zearkc8-1ChoxmSelect Medical Specialty Hospital - Trumbullment on above:Performed By: #### CBC, BMP #### [facility] [address] [place] [address] Mold Capper Helper: Masood Caal MDBasic Metab w/rfx MGon 36-14-1009Qvnvy gap [Moles/Vol]9 mmol/LNormal9-17[facility] HospitalComment on above:Performed By: #### LISHA, MG, BMPX, CDP, LIVP ####[facility] [address] [place] [address] Lab Director: Robel Francois MD BUN/CRE RatioCan not be calculatedNormal9-20MerSt. Anthony HospitalComment on above:Performed By: #### LISHA, MG, BMPX, CDP, LIVP ####[facility] [address] [place] [address] Lab Director: NATHALIA Agustinalcium [Mass/Vol]7.7 mg/dLLow8.6-10.4MerSt. Anthony HospitalComment on above:Performed By: #### LISHA, MG, BMPX, CDP, LIVP ####[facility] M[address] [place] [address] Lab Director: NATHALIA Agustinhloride [Moles/Vol]102 mmol/MSgguoy97-881YgsxmSt. Anthony Hospital Comment on above:Performed By: #### LISHA, MG, BMPX, CDP, LIVP ####[facility] [address] [place] [address] Lab Director: Robel Francois MDCO2 [Moles/Vol]24 mmol/AIfzcdm16-55CjuviSt. Anthony HospitalComment on above:Performed By: #### LISHA, MG, BMPX, CDP, LIVP ####[facility] [address] [place] [address].[place] [address] Lab Director: NATHALIA Agustinreatinine [Mass/Vol]mg/dLLow0.5-0.9MerSt. Anthony HospitalComment on above:Performed By: #### LISHA, MG, BMPX, CDP, LIVP ####[facility] Gth[address]993 [place] [address] Lab Director: Robel Francois MDeGFRCan not be calculatedNormal>60[facility] on above:Result Comment: These results are not intended for use in patients <18 years of age. eGFR results are calculated without a race factor using the 2020 CKD-EPI equation. Careful clinical correlation is recommended, particularly when comparing to results calculated using previous equations. The CKD-EPI equation is less accurate in patients with extremes of muscle mass, extra-renal metabolism of creatine, excessive creatine ingestion, or following therapy that affects renal tubular secretion.Performed By: #### LISHA, MG, BMPX, CDP, LIVP ####[facility] [address] [place] [address] Lab Director: Robel Francois MDGlucose [Mass/Vol]130 mg/dL Kvwb19-35Rsgkk [facility] HospitalCompontiac general hospital on above:Performed By: #### LISHA, MG, BMPX, CDP, LIVP ####[facility] [address] [place] [address] Lab Director: GREG Agustinotassium [Moles/Vol]3.6 mmol/LLow3.7-5.3[facility] HospitalCompontiac general hospital on above:Performed By: #### LISHA, MG, BMPX, CDP, LIVP ####[facility] P[address] [facility] [place] [address] Lab Director: Robel Francois MDSodium [Moles/Vol] 135 mmol/HFaqkzp339-580Jzgae [facility] on above:Performed By: #### LISHA, MG, BMPX, CDP, LIVP ####[facility] [address] [place] [address].[place] [address] Lab Director: Robel Francois MDUrea nitrogen [Mass/Vol]5 mg/dLLow8-23[facility] HospitalComment on above: Performed By: #### LISHA, MG, BMPX, CDP, LIVP ####[facility] Gjy[address]21 [place] [address] Lab Director: NATHALIA Agustin with Diffon 26-01-7231Pvh. Basophil0.00 k/uLNormal0.00-0.20MerSt. Anthony HospitalComment on above:Performed By: #### LISHA, MG, BMPX, CDP, LIVP ####[facility] C[address] [place] [address] Lab Director: Farideh Agustin.Imm.Granulocyte0.10 k/uLNormal0.00-0.30MerSt. Anthony HospitalComment on above:Performed By: #### LISHA, MG, BMPX, CDP, LIVP ####[facility] [address] [place] [address] Lab Director: Farideh Agustin.Neutrophil (Seg)8.96 k/uL High1.50-8.10[facility] HospitalComment on above:Performed By: #### LISHA, MG, BMPX, CDP, LIVP ####[facility] F[address] [place] [address] Lab Director: Robel Francois MDBasophils/100 WBC (Bld)0 %Normal0-2[facility] HospitalComment on above:Performed By: #### LISHA, MG, BMPX, CDP, LIVP ####[facility] [address] [place] [address] Lab Director: RUMA Agustinosinophils (Bld) [#/Vol] 0.00 10*3/uLNormal0.00-0.44[facility] HospitalComment on above:Performed By: #### LISHA, MG, BMPX, CDP, LIVP ####[facility] R[address] [place] [address] Lab Director: Robel Francois MD Eosinophils/100 WBC (Bld)0 %Low1-4[facility] HospitalComment on above: Performed By: #### LISHA, MG, BMPX, CDP, LIVP ####[facility] [address] [place] [phone] Director: Robel Francois MDImmature granulocytes/100 WBC (Bld)1 %Pdou1CipzyCleveland Clinic Mentor HospitalComment on above:Performed By: #### LISHA, MG, BMPX, CDP, LIVP ####[facility] P[address] [place] [address] Lab Director: Robel Francois MDLymphocytes (Bld) [#/Vol]0.52 10*3/uLLow1.10-3.70[facility] HospitalComment on above:Performed By: #### LISHA, MG, BMPX, CDP, LIVP ####[facility] [address] [place] [address] Lab Director: Robel Francois MDLymphocytes/100 WBC (Bld)5 %Aoc66-36YiopySt. Anthony HospitalComment on above:Performed By: #### LISHA, MG, BMPX, CDP, LIVP ####[facility] [address] [place] [phone] Director: JAREK Agustinonocytes (Bld) [#/Vol]0.72 10*3/uLNormal0.10-1.20 [facility] HospitalComment on above:Performed By: #### LISHA, MG, BMPX, CDP, LIVP ####[facility] [address] [place] [address] Lab Director: JAREK Agustinonocytes/100 WBC (Bld)7 % Normal3-12[facility] HospitalComment on above:Performed By: #### LISHA, MG, BMPX, CDP, LIVP ####[facility] [address] [place], [place] [address]ia [facility] [place] [address] Lab Director: Robel Francois MDNeutrophil (Seg)87 %High 36-65[facility] HospitalComment on above:Performed By: #### LISHA, MG, BMPX, CDP, LIVP ####[facility] [address] [place] [address].[place] [address] Lab Director: Robel Francois MDErythrocyte distribution width (RBC) [Ratio]15.5 %High11.8-14.4[facility] HospitalComment on above: Performed By: #### LISHA, MG, BMPX, CDP, LIVP ####[facility] [address] [place] [address].[place] [address] Lab Director: Robel Francois MDHematocrit (Bld) [Volume fraction]27.1 %Low36.3-47.1Mkettering health miamisburgy [facility] Comment on above:Performed By: #### LISHA, MG, BMPX, CDP, LIVP ####[facility] [address] [facility] [place] [address] Lab Director: Robel Francois MDHemoglobin (Bld) [Mass/Vol]9.3 g/dLLow11.9-15.1 [facility] HospitalComment on above:Performed By: #### LISHA, MG, BMPX, CDP, LIVP ####[facility] [address] [facility] [place] [address] Lab Director: KAREN Agustin (RBC) [Entitic mass]33.0 zuTvoqcr74.2-33.5[facility] HospitalCompontiac general hospital on above:Performed By: #### LISHA, MG, BMPX, CDP, LIVP ####[facility] Qf[address] [facility] [place] [address] Lab Director: KAREN AgustinC (RBC) [Mass/Vol]34.3 g/zYHalgkw69.4-34.8[facility] HospitalCompontiac general hospital on above: Performed By: #### LISHA, MG, BMPX, CDP, LIVP ####[facility] [address] [place] [address].[place] [address] Lab Director: JAREK AgustinCV (RBC) [Entitic vol]96.1 xRGawuxr34.6-102.9[facility] HospitalCompontiac general hospital on above:Performed By: #### LISHA, MG, BMPX, CDP, LIVP ####[facility] [address] [place] [address].[place] [address] Lab Director: PAIGE Agustin Automated0.0 per 100 WBCNormal0.0[facility] HospitalCompontiac general hospital on above:Performed By: #### LISHA, MG, BMPX, CDP, LIVP ####[facility] [address] [place] [address].[place] [address] Lab Director: Cecily Agustin mean volume (Bld) [Entitic vol]8.9 fLNormal8.1-13.5[facility] HospitalCompontiac general hospital on above:Performed By: #### LISHA, MG, BMPX, CDP, LIVP ####[facility] [address] [place] [address].[place] [address] Lab Director: Montserrat Agustin (Bld) [#/Vol]292 10*3/lMZlbqmy516-985Smimz St. Anne HospitalComment on above:Performed By: #### LISHA, MG, BMPX, CDP, LIVP ####[facility] Pes[address] [facility] [place] [address] Lab Director: GREGORIA Agustin (Bld) [#/Vol]2.82 10*6/uLLow3.95-5.11[facility] HospitalComment on above:Performed By: #### LISHA, MG, BMPX, CDP, LIVP ####[facility] Chq[address] [facility] [place] [address] Lab Director: TERELL Agustin (Bld) [#/Vol]10.3 10*3/uLNormal3.5-11.3[facility] HospitalComment on above: Performed By: #### LISHA, MG, BMPX, CDP, LIVP ####[facility] Vlg[address]50 [place] [address] Lab Director: Robel Francois MDGlucose,Whole Bloodon 65-49-5138Pfostpx [Mass/Vol]98 mg/zQFkvjta54-042SkreiCleveland Clinic Mentor HospitalGlucose [Mass/Vol]114 mg/aTDfag71-758GtstdC[facility] Clinic [facility] Hospital Glucose [Mass/Vol]153 mg/vMNvic74-112SrjpwCleveland Clinic Mentor HospitalGlucose [Mass/Vol] 128 mg/uZEcwi37-467PkpbfCleveland Clinic Mentor HospitalLiver Profileon 78-95-4797Ozuamel [Mass/Vol]3.6 g/dLNormal3.5-5.2[facility] HospitalCompontiac [facility] hospital on above:Performed By: #### LISHA, MG, BMPX, CDP, LIVP ####[facility] [address] [facility] [place] [address] Lab Director: Robel Francois MD Alkaline Phos76 U/EDpqcor06-499RonupCleveland Clinic Mentor HospitalComment on above:Performed By: #### LISHA, MG, BMPX, CDP, LIVP ####[facility] Kav[address] [facility] [place] [address] Lab Director: Robel Francois MDALT [Catalytic activity/Vol]15 U/LNormal5-33[facility] HospitalComment on above: Performed By: #### LISHA, MG, BMPX, CDP, LIVP ####[facility] Ccm[address] [facility] [place] [address] Lab Director: Robel Francois MDAST [Catalytic activity/Vol]31 U/LNormal<32[facility] HospitalComment on above:Performed By: #### LISHA, MG, BMPX, CDP, LIVP ####[facility] [address] [place] [address] Lab Director: Robel Francois MDBilirubin [Mass/Vol]0.3 mg/dLNormal0.3-1.2[facility] Comment on above:Performed By: #### LISHA, MG, BMPX, CDP, LIVP ####[facility] [address] [place] [address].[place] [address] Lab Director: Lizet Agustinirubin, Indirect0.2 mg/dLNormal0.0-1.0[facility] HospitalComment on above:Performed By: #### LISHA, MG, BMPX, CDP, LIVP ####[facility] [address] [place] [address].[place] [address] Lab Director: Lizet Agustinirubin.indirect [Mass/Vol] 0.1 mg/dLNormal<0.3[facility] HospitalComment on above:Performed By: #### LISHA, MG, BMPX, CDP, LIVP ####[facility] Leh[address] [place] [address] lab Director: GREG Agustinrotein [Mass/Vol]6.0 g/dLLow6.4-8.3[facility] HospitalComment on above:Performed By: #### LISHA, MG, BMPX, CDP, LIVP ####[facility] [address] [place] [address] [id number] lab Director: Robel Francois MD Magnesiumon 37-80-5566Oxmivqiyq [Mass/Vol]2.1 mg/dLNormal1.6-2.6[facility] HospitalComment on above:Performed By: #### LISHA, MG, BMPX, CDP, LIVP ####[facility] [address] [place] [address] lab Director: GREG Agustinhosphorus, Inorg.on 64-65-9222Lvkdqywesc, Inorg. 1.4 mg/dLLow2.6-4.5[facility] HospitalComment on above:Performed By: #### LISHA, MG, BMPX, CDP, LIVP ####[facility] [address] [place] [address] lab Director: LEAH Agustin ABDOMEN (KUB) (SINGLE AP VIEW)on 86-60-9266CN ABDOMEN (KUB) (SINGLE AP VIEW)EXAMINATION: ONE SUPINE XRAY VIEW(S) OF THE ABDOMEN; ONE XRAY VIEW OF THE CHEST 06/08/2024 1:15 am COMPARISON: None. HISTORY: ORDERING SYSTEM PROVIDED HISTORY: increased abdominal pain with lower extremity motteling, r/o perforation with SBO TECHNOLOGIST PROVIDED HISTORY: increased abdominal pain with lower extremity motteling, r/o perforation with SBO Reason for Exam: increased abdominal pain with lower extremity motteling, r/o perforation with SBO FINDINGS: No lines or tubes. Normal cardiomediastinal silhouette. The lungs are clear without focal consolidation or pleural effusion. No suspicious pulmonary nodules. No pulmonary edema. No pneumothorax. Frontal view of the abdomen demonstrates gaseous distention of the small bowel and colon; however, the course of the bowel is not well visualized on supine view. No obvious pneumatosis or free air. No acute osseous abnormality. Degenerative changes of the spine are seen. IMPRESSION: 1. No acute cardiopulmonary process. 2. Gaseous distention of the colon and small bowel. Findings may represent obstruction or ileus. Dedicated CT can be obtained as clinically warranted. Interpreted by: Marilynn Reyes MD Signed by: Marilynn Reyes MD 06/09/24 Final resultNormalCleveland Clinic Mentor HospitalXR CHEST PORTABLEon 51-79-8148BK CHEST PORTABLEEXAMINATION: ONE SUPINE XRAY VIEW(S) OF THE ABDOMEN; ONE XRAY VIEW OF THE CHEST 06/08/2024 1:15 am COMPARISON: None. HISTORY: ORDERING SYSTEM PROVIDED HISTORY: increased abdominal pain with lower extremity motteling, r/o perforation with SBO TECHNOLOGIST PROVIDED HISTORY: increased abdominal pain with lower extremity motteling, r/o perforation with SBO Reason for Exam: increased abdominal pain with lower extremity motteling, r/o perforation with SBO FINDINGS: No lines or tubes. Normal cardiomediastinal silhouette. The lungs are clear without focal consolidation or pleural effusion. No suspicious pulmonary nodules. No pulmonary edema. No pneumothorax. Frontal view of the abdomen demonstrates gaseous distention of the small bowel and colon; however, the course of the bowel is not well visualized on supine view. No obvious pneumatosis or free air. No acute osseous abnormality. Degenerative changes of the spine are seen. IMPRESSION: 1. No acute cardiopulmonary process. 2. Gaseous distention of the colon and small bowel. Findings may represent obstruction or ileus. Dedicated CT can be obtained as clinically warranted. Interpreted by: Marilynn Reyes MD Signed by: Marilynn Reyes MD 06/09/24 Final resultNormalCleveland Clinic Mentor HospitalBasic Metabolic Profon 77-74-9262Fqtij gap [Moles/Vol]15 mmol/LNormal9-17[facility] Mentor HospitalComment on above: Performed By: #### BMP #### [facility] Lab [address] [place] [address] Mold Capper Helper: Robel Francois MDBUN/CRE Pdmfm91Pnkbce3-28SyzkgCleveland Clinic Mentor HospitalComment on above:Performed By: #### BMP #### [facility] [address] [facility] [place] [address] Mold Capper Helper: NATHALIA Agustinalcium [Mass/Vol]7.9 mg/dLLow8.6-10.4MerSt. Anthony HospitalCompontiac general hospital on above:Performed By: #### BMP #### [facility] [address] [place] [address] Mold Capper Helper: NATHALIA Agustinhloride [Moles/Vol]99 mmol/XGqtnlj00-639ZraejSt. Anthony HospitalCompontiac general hospital on above:Performed By: #### BMP #### [facility] [address] [place] [address] Mold Capper Helper: Robel Francois MDCO2 [Moles/Vol]18 mmol/ZKic01-64WrcobSt. Anthony HospitalCompontiac general hospital on above:Performed By: #### BMP #### [facility] [address] [place] [address] Mold Capper Helper: NATHALIA Agustinreatinine [Mass/Vol]0.4 mg/dLLow0.5-0.9[facility] HospitalCompontiac general hospital on above:Performed By: #### BMP #### [facility] [address] [place] [address] Mold Capper Helper: Robel Francois MDGFR/1.73 sq M.predicted among non-blacks MDRD (S/P/Bld) [Vol rate/Area]mL/min/{1.73_m2}Normal>60MerSt. Anthony HospitalComment on above:Result Comment: These results are not intended for use in patients <18 years of age. eGFR results are calculated without a race factor using the 2020 CKD-EPI equation. Careful clinical correlation is recommended, particularly when comparing to results calculated using previous equations. The CKD-EPI equation is less accurate in patients with extremes of muscle mass, extra-renal metabolism of creatine, excessive creatine ingestion, or following therapy that affects renal tubular secretion.Performed By: #### BMP #### [facility] [address] [facility] [place] [address] Mold Capper Helper: Robel Francois MDGlucose [Mass/Vol]133 mg/eRYzrk80-37Xjasw [facility] HospitalCompontiac general hospital on above:Performed By: #### BMP #### [facility] Lab [address] [place] [address]. [place] [address] Mold Capper Helper: GREG Agustinotassium [Moles/Vol]3.8 mmol/LNormal3.7-5.3 [facility] HospitalCompontiac general hospital on above:Performed By: #### BMP #### [facility] [address] [facility] [place] [address] Mold Capper Helper: VENESSA Agustinodium [Moles/Vol]132 mmol/JQda897-032SrvbuCleveland Clinic Mentor HospitalCompontiac general hospital on above:Performed By: #### BMP #### [facility] [address] [place] [address]. [place] [address] Mold Capper Helper: Robel Francois MDUrea nitrogen [Mass/Vol]5 mg/dLLow8-23[facility] on above:Performed By: #### BMP #### [facility] Lab [facility] [facility] [place] [address] Mold Capper Helper: Robel Francois MDGlucose,Whole Bloodon 65-97-2182Kynguff [Mass/Vol]151 mg/mWJeeg08-600LsbxfSt. Anthony HospitalGlucose [Mass/Vol]131 mg/dL Qaye25-933LcpdnSt. Anthony HospitalGlucose [Mass/Vol]124 mg/rUYgjt47-822Nektj [facility] HospitalGlucose [Mass/Vol]119 mg/kVRhmk26-636OtygpSt. Anthony HospitalGlucose [Mass/Vol]50 mg/qITrp03-564GujorSt. Anthony HospitalHgb/Hcton 06-08-2024 Hematocrit (Bld) [Volume fraction]35.8 %Low36.3-47.1[facility] Comment on above:Performed By: #### MG, HH #### [facility] [address] [place] [address] Mold Capper Helper: Robel Francois MDHemoglobin (Bld) [Mass/Vol]12.1 g/dLNormal 11.9-15.1[facility] HospitalComment on above:Performed By: #### MG, HH #### [facility] [address] [place] [address] [id number] Mold Capper Helper: Kailey Agustingnesiumon 59-69-1209Fvgvgmfsb [Mass/Vol]2.2 mg/dLNormal1.6-2.6[facility] HospitalComment on above:Performed By: #### MG, HH #### [facility] [address] [place] [address] Mold Capper Helper: Robel Francois MDType + Screenon 04-32-9300Gtcj + ScreenSample Expiration 06/11/2024,2359 Arm Band Number BE [id number] ABO/Rh(D) O POSITIVE Antibody Screen NEGATIVENormalMerSt. Anthony HospitalComment on above:Performed By: #### MG, HH #### [facility] [address] [place] [address] Mold Capper Helper: Robel Francois MDBasic Metabolic Profon 70-38-4167Rgtjx gap [Moles/Vol]14 mmol/LNormal9-17MerSt. Anthony HospitalComment on above:Performed By: #### BMP #### [facility] [address] [facility] [place] [address] Mold Capper Helper: Robel Francois MDBUMasha/CRE Wfzye77Ocjheb7-30LurjeCleveland Clinic Mentor HospitalComment on above:Performed By: #### BMP #### [facility] [address] [place] [address]. [place] [address] Mold Capper Helper: NATHALIA gAustinalcium [Mass/Vol]8.7 mg/dLNormal8.6-10.4[facility] HospitalComment on above:Performed By: #### BMP #### [facility] [address] [place] [address] Mold Capper Helper: NATHALIA Agustinhloride [Moles/Vol]94 mmol/YEio84-749OofokSt. Anthony HospitalComment on above:Performed By: #### BMP #### [facility] [address] [place] [address] Mold Capper Helper: NATHALIA AgustinO2 [Moles/Vol]23 mmol/XLtstsf81-91LticcCleveland Clinic Mentor HospitalComment on above:Performed By: #### BMP #### [facility] [address] [place] [address] Mold Capper Helper: NATHALIA Agustinreatinine [Mass/Vol]0.4 mg/dLLow0.5-0.9[facility] HospitalCompontiac general hospital on above:Performed By: #### BMP #### [facility] [address] [place] [address] Mold Capper Helper: Robel Francois MDGFR/1.73 sq M.predicted among non-blacks MDRD (S/P/Bld) [Vol rate/Area]mL/min/{1.73_m2}Normal>60[facility] HospitalComment on above:Result Comment: These results are not intended for use in patients <18 years of age. eGFR results are calculated without a race factor using the 2020 CKD-EPI equation. Careful clinical correlation is recommended, particularly when comparing to results calculated using previous equations. The CKD-EPI equation is less accurate in patients with extremes of muscle mass, extra-renal metabolism of creatine, excessive creatine ingestion, or following therapy that affects renal tubular secretion.Performed By: #### BMP #### [facility] Lab [facility] [place] [address] Mold Capper Helper: Robel Francois MDGlucose [Mass/Vol]77 mg/pTOosecj20-01OcecgDoctors HospitalCompontiac general hospital on above:Performed By: #### BMP #### [facility] [address] [place] [address] Mold Capper Helper: GREG Agustinotassium [Moles/Vol]3.6 mmol/LLow3.7-5.3[facility] HospitalCompontiac general hospital on above:Performed By: #### BMP #### [facility] [address] [place] [address] Mold Capper Helper: VENESSA Agustinodium [Moles/Vol]131 mmol/GSus665-517CkgrrKettering Health Springfield on above:Performed By: #### BMP #### [facility] [address] [place] [address] Mold Capper Helper: Robel Francois MDUrea nitrogen [Mass/Vol]5 mg/dLLow8-23[facility] HospitalCompontiac general hospital on above:Performed By: #### BMP #### [facility] [address] [place] [address] Mold Capper Helper: Robel Francois MDTRANSTHORACIC ECHO (TTE) [facility] 06-03-2024 TRANSTHORACIC ECHO (TTE) [address], [address] [place] [address] TRANSTHORACIC ECHOCARDIOGRAM REPORT Patient Name: LILLIAM BAJWA Reading Physician: [id number] Soren Donovan MD Study Date: 06/03/2024 Ordering Provider: [id number] KERRIE LOMBARDO MRN/PID: [id number] Fellow: Nurse: Date of /Age: 805/18/1955 / 69 years Major Sales Associate: Ruma Rivas RDCS, RVT Gender: F Additional Staff: Height: 154.94 cm Admit Date: Weight: 57.61 kg Admission Status: BSA / BMI: 1.56 m2 / 24.00 kg/m2 Department Location: [facility] Blood Pressure: 150 /94 mmHg Study Type: TRANSTHORACIC ECHO (TTE) COMPLETE Diagnosis/ICD: Paroxysmal atrial fibrillation-I48.0; Dizziness and giddiness-R42 Indication: Abnormal EKG-1st Degree AV Block, COPD, Hyperlipidemia, Former Smoker-Quit 03/2024, Shortness of Breath, Chronic Respiratory Failure-on O2 at 2-3l, ETOH Use, Hypothyroid CPT Codes: Echo Complete w Full Doppler-66757 Study Detail: The following Echo studies were [...] structurally normal. The aortic valve dimensionless index is0.63. There is no evidence of aortic valve regurgitation. The peak instantaneous gradient of the aortic valve is 5.2 mmHg. The mean gradient of the aortic valve is 3.0 mmHg. Mitral Valve: The mitral valve is normal in structure. There is mild mitral valve regurgitation. Tricuspid Valve: The tricuspid valve is structurally normal. There is mild tricuspid regurgitation.The Doppler estimated RVSP is slightly elevated right ventricular systolic pressure at 32.4 mmHg. Pulmonic Valve: The pulmonic valve is structurally normal. There is no indication of pulmonic valveregurgitation. Pericardium: There is no pericardial effusion noted. Aorta: The aortic root is normal. CONCLUSIONS: 1. The left ventricular systolic function is normal, with a visually estimated ejection fraction of60-65%. 2. There is normal right ventricular global [...] 0.5 m/s (0.6-0.9m/s) PV Max P.1 mmHg [id number] Soren Donovan MD Electronically signed on 06/03/2024 at 6:20:25 PM Final [facility]US [facility] TransthoracicOrdered By: Sorne Donovan on 97-30-6598Bksdzg Valve Area by Continuity of Peak Velocity1.83 tn0GoiyokzgrbUK Healthcare Work Phone: Aortic Valve Area by Continuity of VTI1.80 cm2 [facility] Work Phone: AV mn grad3.0mmHg[facility] Work Phone: AV pk grad5.2mmHgUK [facility] Work Phone: AV pk vel1.14 m/[facility] Work Phone: LV A4C EF63.6UnAvita Health System [facility] Work Phone: LV Biplane EF63 %[facility] Work Phone: LV EF63 %[facility] Work Phone: LVIDd3.81 cmUK [facility] Work Phone: LVOT diam1.90 [facility] Work Phone: MV avg E/e' ratio8.80UnAvita Health System [facility] Work Phone: MV E/A ratio1.17UnAv[facility] Work Phone: RVSP32.4mmHgUnAvita Health System Bu[facility] Work Phone: UnAvita [facility] Work Phone: US Heart Transthoracicon 06-03-[address], [address] [place] [address] TRANSTHORACIC ECHOCARDIOGRAM REPORT Patient Name: LILLIAM POSEYCHANTALPreet Reading Physician: [id number] Donovan MD Study Date: 06/03/2024 Ordering Provider: [id number] KERRIE LOMBARDO MRN/PID: [id number] Fellow: Nurse: Date of /Age: 805/18/1955 / 69 years Major Sales Associate: Ruma Rivas RDCS, RVT Gender: F Additional Staff: Height: 154.94 cm Admit Date: Weight: 57.61 kg Admission Status: BSA / BMI: 1.56 m2 / 24.00 kg/m2 Department Location: [facility] Blood Pressure: 150 /94 mmHg Study Type: TRANSTHORACIC ECHO (TTE) COMPLETE Diagnosis/ICD: Paroxysmal atrial fibrillation-I48.0; Dizziness and giddiness-R42 Indication: Abnormal EKG-1st Degree AV Block, COPD, Hyperlipidemia, Former Smoker-Quit 03/2024, Shortness of Breath, Chronic Respiratory Failure-on O2 at 2-3l, ETOH Use, Hypothyroid CPT Codes: Echo Complete w Full Doppler-66199 Study Detail: The following Echo studies were [...] structurally normal. The aortic valve dimensionless index is0.63. There is no evidence of aortic valve regurgitation. The peak instantaneous gradient of the aortic valve is 5.2 mmHg. The mean gradient of the aortic valve is 3.0 mmHg. Mitral Valve: The mitral valve is normal in structure. There is mild mitral valve regurgitation. Tricuspid Valve: The tricuspid valve is structurally normal. There is mild tricuspid regurgitation.The Doppler estimated RVSP is slightly elevated right ventricular systolic pressure at 32.4 mmHg. Pulmonic Valve: The pulmonic valve is structurally normal. There is no indication of pulmonic valveregurgitation. Pericardium: There is no pericardial effusion noted. Aorta: The aortic root is normal. CONCLUSIONS: 1. The left ventricular systolic function is normal, with a visually estimated ejection fraction of60-65%. 2. There is normal right ventricular global [...] 1.80 cm2 (2.5-5.5cm2) AoV Area,Vmax: 1.83 cm2 ( (more content not included)...Soren Uribe MD - 06/03/[address], [address] [place] [address] TRANSTHORACIC ECHOCARDIOGRAM REPORT Patient Name: LILLIAM BAJWA Reading Physician: [id number] Soren Donovan MD Study Date: 06/03/2024 Ordering Provider: [id number] KERRIE LOMBARDO MRN/PID: [id number] Fellow: Nurse: Date of /Age: 805/18/1955 / 69 years Major Sales Associate: Ruma Rivas RDCS, RVT Gender: F Additional Staff: Height: 154.94 cm Admit Date: Weight: 57.61 kg Admission Status: BSA / BMI: 1.56 m2 / 24.00 kg/m2 Department Location: [facility] Blood Pressure: 150 /94 mmHg Study Type: TRANSTHORACIC ECHO (TTE) COMPLETE Diagnosis/ICD: Paroxysmal atrial fibrillation-I48.0; Dizziness and giddiness-R42 Indication: Abnormal EKG-1st Degree AV Block, COPD, Hyperlipidemia, Former Smoker-Quit 03/2024, Shortness of Breath, Chronic Respiratory Failure-on O2 at 2-3l, ETOH Use, Hypothyroid CPT Codes: Echo Complete w Full Doppler-26836 Study Detail: The following Echo studies were [...] structurally normal. The aortic valve dimensionless index is0.63. There is no evidence of aortic valve regurgitation. The peak instantaneous gradient of the aortic valve is 5.2 mmHg. The mean gradient of the aortic valve is 3.0 mmHg. Mitral Valve: The mitral valve is normal in structure. There is mild mitral valve regurgitation. Tricuspid Valve: The tricuspid valve is structurally normal. There is mild tricuspid regurgitation.The Doppler estimated RVSP is slightly elevated right ventricular systolic pressure at 32.4 mmHg. Pulmonic Valve: The pulmonic valve is structurally normal. There is no indication of pulmonic valveregurgitation. Pericardium: There is no pericardial effusion noted. Aorta: The aortic root is normal. CONCLUSIONS: 1. The left ventricular systolic function is normal, with a visually estimated ejection fraction of60-65%. 2. There is normal right ventricular global [...] 0.5 m/s (0.6-0.9m/s) PV Max P.1 mmHg [id number] Soren Donovan MD Electronically signed on 06/03/2024 at 6:20:25 PM Final [facility] Work Phone: Holter monitor 8 to 15 dayson [id number] [address] Cardiology Report Signed Patient: LILLIAM BAJWA MR#: [id number] : 1955 Acct:[id number] Age/Sex: 68 / F ADM Date: 03/07/24 Loc: RAD Attending Dr: JEREMIAS LOPEZ Ordering Physician: JEREMIAS LOPEZ Date of Service: 03/07/24 Procedure(s): CA holter monitor 7-15 days Accession Number(s): [id number] cc: JEREMIAS LOPEZ [facility] Test Date: 2024-03-28 Pat Name: LILLIAM BAJWA Department: Room: - Gender: Female Guide Excursion: : 1955 Requested By: JEREMIAS LOPEZ Order Number: [id number] Reading MD: SANDEEP HUTCHINSON Interpretive Statements Predominant rhythm is sinus [...] Electronically Signed On 03-28-2024 18:32:52 EDT by SANDEEP HUTCHINSON Dictated By: Sandeep Hutchinson D.O. Signed By: 03/28/24183203/28/241832 DD/ 02 TD/TT: Loading Machine Adjuster:Clint Kam MD - 03/28/2024 [place] [address] Cardiology Report Signed Patient: LILLIAM BAJWA MR#: [id number] : 1955 Acct:[id number] Age/Sex: 68 / F ADM Date: 03/07/24 Loc: RAD Attending Dr: JEREMIAS LOPEZ Ordering Physician: JEREMIAS LOPEZ Date of Service: 03/07/24 Procedure(s): CA holter monitor 7-15 days Accession Number(s): [id number] cc: JEREMIAS LOPEZ The [facility] Test Date: 2024-03-28 Pat Name: LILLIAM BAJWA Department: Room: - Gender: Female Guide Excursion: : 1955 Requested By: JEREMIAS LOPEZ Order Number: [id number] Reading MD: SANDEEP HUTCHINSON Interpretive Statements Predominant rhythm is sinus [...] Electronically Signed On 03-28-2024 18:32:52 EDT by SANDEEP HUTCHINSON Dictated By: Sandeep Hutchinson D.O. Signed By: 03/28/24183203/28/241832 DD/ 02 TD/TT: Loading Machine Adjuster: [facility] HealthcareRadiology Study observation (narrative)[facility] HealthcareHolter monitor 8 to 15 daysOrdered By: Radiologist Radiology on 52-92-9533MHNO [employer] Work Phone: XR DEXA AXIAL SKELETONon [id number] [address] XRay Report Signed Patient: LILLIAM BAJWA MR#: [id number] : 1955 Acct:[id number] Age/Sex: 68 / F ADM Date: 03/07/24 Loc: RAD Attending Dr: JEREMIAS LOPEZ Ordering Physician: JEREMIAS LOPEZ Date of Service: 03/07/24 Procedure(s): XR DEXA axial skeleton Accession Number(s): [id number] cc: JEREMIAS LOPEZ [place] [id number] Patient Name: LILLIAM BAJWA MRN: [id number] date: 1955 Sex: F Assigned Patient Location: [facility] Current Patient Location: Accession/Order Number: [id number] Exam Date: 03/07/2024 12:48 Report Date: 03/10/2024 07:46 At the request of: JEREMIAS LOPEZ Procedure: XR DEXA axial skeleton EXAMINATION: [...] High Fracture Risk FRAX: Electronically authenticated by: WESTLEY COLLINS Date: 03/10/2024 07:46 Dictated By: Westley Collins M.D. Signed By: 03/10/24 0749 DD/ 0746 TD/TT: Loading Machine Adjuster:TBHRadiology, Radiologist, - 03/10/[address] [address] XRay Report Signed Patient: LILLIAM BAJWA MR#: [id number] : 1955 Acct:[id number] Age/Sex: 68 / F ADM Date: 03/07/24 Loc: RAD Attending Dr: JEREMIAS LOPEZ Ordering Physician: JEREMIAS LOPEZ Date of Service: 03/07/24 Procedure(s): XR DEXA axial skeleton Accession Number(s): [id number] cc: JEREMIAS LOPEZ [place] [address] Patient Name: LILLIAM BAJWA MRN: [id number] date: 1955 Sex: F Assigned Patient Location: [facility] Current Patient Location: Accession/Order Number: [id number] Exam Date: 03/07/2024 12:48 Report Date: 03/10/2024 07:46 At the request of: JEREMIAS LOPEZ Procedure: XR DEXA axial skeleton EXAMINATION: [...] High Fracture Risk FRAX: Electronically authenticated by: WESTLEY COLLINS Date: 03/10/2024 07:46 Dictated By: Westley Collins M.D. Signed By: 03/10/24 0749 DD/ 0746 TD/TT: Loading Machine Adjuster: KAREEM HealthcareRadiology Study observation (narrative)[facility]OMS HealthcareXR DEXA AXIAL SKELETONOrdered By: Radiologist Radiology on 11-04-4941RMDP Healthcare Work Phone: ct CHEST WO CONon 23-27-9789CY CHEST WO [facility]XR CHEST 2 Von 40-88-2746RR CHEST 2 VNOhioHealth Berger HospitalXR CHEST 2 Von 02-61-2331XH CHEST 2 VNOhioHealth Berger HospitalCT CHEST WO CONon 77-24-1243KI CHEST WO CONNOhioHealth Berger HospitalACID FAST SMEAR AND CXon 40-18-4011Dzqq Fast CultureNegativeOhioHealth Berger HospitalComment on above:Result Comment: No acid fast bacilli isolated after 6 weeks.Performed By: #### AFB ####[facility] [address] [place], [place] [address]Dr.Charlee ChangAcid Fast SmearNegativeOhioHealth Berger HospitalComment on above:Performed By: #### AFB ####[facility] [address] [place], [place] [address]Dr.Charlee Campos Specimen ProcessingConcentration NormalMercy Health Fairfield HospitalComment on above:Performed By: #### AFB ####[facility] [address] [place], [place] [address]Dr.Charlee Chavez CULTUREon 38-79-1683Fmbfnhhwtrzsd CultureFinal reportNoProtestant Deaconess Hospital Comment on above:Performed By: #### CXSTOOL ####[facility] [address] [place] [address]Dr. Charlee ChangE coli Shiga Toxin EIA NegativeNormalNegativeMercy Health Fairfield HospitalComment on above:Performed By: #### CXSTOOL ####[facility] [address] [place], [place] [address]Dr. Charlee ChangResult 1ComOhioHealth Mansfield HospitalComment on above: Result Comment: No Salmonella or Shigella recovered.Performed By: #### CXSTOOL ####[facility] [address] [place], [place] [address]Dr. Charlee ChangResult Comment: No Campylobacter species isolated.Salmonella/Shigella ScreenFinal J.W. Ruby Memorial HospitalComment on above:Performed By: #### CXSTOOL ####[facility] Aoxpyxawqr[address] [place], [place] [address]Dr. Charlee PearsonFUNGAL CULTUREon [id number] (Mycology) CultureFinal reportSelect Medical Specialty Hospital - CantonComment on above:Performed By: #### CXFUN ####[facility] Lefuqppbod77[address] [place], [place] [address]Dr. Charlee PearsonFungus StainFinal J.W. Ruby Memorial HospitalComment on above: Performed By: #### CXFUN ####[facility] Vdlzzqknmk9969[address] [place], [place] [address]Dr. Charlee PearsonResult 1ComOhioHealth Mansfield HospitalComment on above:Result Comment: ZULAY/Calcofluor preparation: no fungus observed.Performed By: #### CXFUN ####[facility] Jywsncyjch650[address] [place], [place] [address]Dr. Charlee PearsonResult 1Candida albicansSelect Medical Specialty Hospital - CantonComment on above:Performed By: #### CXFUN ####[facility] Tkxuuuajyj539[address] [place], [place] [address]Dr. Charlee PearsonCLOSTRIDIUM DIFFICILE PCRon 2C difficile Toxin Gene NAANegativeNormalNegativeThe St. Charles HospitalComment on above:Performed By: #### CDIFNAA ####[facility] Qlfitphdcv154[address] [place], [place] [address]Dr. Charlee PearsonCBC AUTO DIFFon [id number] #0.1 103/ulNormal0.0-0.1The St. Charles HospitalComment on above:Performed By: #### CBC ####[facility] Yhilxjwdky115[address] [place], [place] [address]Dr.Charlee PearsonBasophils/100 WBC (Bld)0.5 %Normal 0.2-2.0The [facility]. Charles HospitalComment on above:Performed By: #### CBC ####[facility] Lvsogickeq178[address] [place], [place] [address]Dr.Claudettelan ChangEO # 0.0 103/ulNormal0.0-0.7The [facility]. Charles HospitalComment on above:Performed By: #### CBC ####[facility] Tzspkbcynw0800[address] [place], [place] [address]Dr. Charlee ChangEosinophils/100 WBC (Bld)0.1 %Critically low0.9-7.0The [facility]. Charles HospitalComment on above:Performed By: #### CBC ####[facility] Dfonxeeyln226[address] [place], [place] [address]Dr.Charlee ChangErythrocyte distribution width (RBC) [Ratio]13.2 %Tsdatm26.0-15.0The [facility] Comment on above:Performed By: #### CBC ####[facility] Daumtjwbjj570[address] [place], [place] [address]Dr.Charlee ChangHematocrit (Bld) [Volume fraction]32.2 %Critically low36.0-48.0The [facility]. Charles HospitalComment on above: Performed By: #### CBC ####[facility] Kmgnchwztb434[address] [place], [place] [address]Dr.Charlee ChangHemoglobin (Bld) [Mass/Vol]10.7 g/dL Critically low12.0-16.0The [facility]. Charles HospitalComment on above:Performed By: #### CBC ####[facility] Gqzmezkdov833[address] [place], [place] [address]Dr. Charlee ChangIG #0.13 10e3/ulCritically high0.00-0.03The [facility] Charles HospitalComment on above:Performed By: #### CBC ####[facility] Rlqaqtlhay5513[address] [place], [place] [address]Dr.Charlee ChangIG %1.4 %Critically high0.0-0.5The [facility] Charles HospitalComment on above:Performed By: #### CBC ####[facility] Smzkzrwfzs2067[address] [place], [place] [address]Dr.Charlee PearsonLYH #1.4 103/ulNormal1.2-3.8The [facility] Charles HospitalComment on above:Performed By: #### CBC ####[facility] [address]pfujlf[address] [place] [address]Dr. Charlee PearsonLymphocytes/100 WBC (Bld)14.2 %Critically low20.5-60.0The [facility] Charles HospitalComment on above:Performed By: #### CBC ####[facility] Mmzlgbocdi00[address] [place], [place] [address]Dr.Charlee PearsonMANUAL DIFF REQ NONormalThe St. Charles HospitalComment on above:Performed By: #### CBC ####[facility] Vgxsreaszj939[address] [place], [place] [address]Dr. Charlee PearsonH (RBC) [Entitic mass]30.4 bmIsdxly27.7-34.0The [facility] Comment on above:Performed By: #### CBC ####[facility] Ozeclhfvht270[address] [place], [place] [address]Dr.Charlee PearsonHC (RBC) [Mass/Vol]33.2 g/dL Pisksf99.9-35.2The [facility] HospitalComment on above:Performed By: #### CBC ####[facility] Vkudazfcqk2688[address] [place], [place] [address]Dr. Charlee PearsonV (RBC) [Entitic vol]91.5 aVIzjnzw80.0-99.0The [facility] Comment on above:Performed By: #### CBC ####[facility] Tazdyxqpih76[address] [place], [place] [address]Dr.Charlee PearsonMONO #1.2 103/ulCritically high0.3-0.8The [facility] HospitalComment on above:Performed By: #### CBC ####[facility] Ajpddktadw517[address] [place], [place] [address]Dr. Charlee PearsonMonocytes/100 WBC (Bld)12.9 %Critically high1.7-12.0The [facility] HospitalComment on above:Performed By: #### CBC ####[facility] Wearzgllip[address] [place] [address]Dr.Charlee PearsonNEUT #6.7 103/ulCritically high1.4-6.5The [facility] HospitalComment on above:Performed By: #### CBC ####[facility] Sfdchjfdhy75[address] [place] [address]Dr.Charlee PearsonNeutrophils/100 WBC (Bld)70.9 %Jegwbx93.0-75.0The [facility] HospitalComment on above:Performed By: #### CBC ####[facility] Joukztwrqf45[address] [place] [address]Dr.Charlee PearsonPlatelet mean volume (Bld) [Entitic vol]8.2 fLCritically low9.5-13.5ThOhioHealth Pickerington Methodist Hospital Comment on above:Performed By: #### CBC ####[facility] Exjimtsgba1236[address] [place], [place] [address]Dr.Charlee SyjtoVJP491 103/ulCritically high 150-450The [facility] HospitalComment on above:Performed By: #### CBC ####[facility] Okosqmekgk448[address] [place], [place] [address]Dr.Charlee ChangRBC 3.52 106/ulCritically low4.20-5.40The [facility] on above: Performed By: #### CBC ####[facility] Qlbycswpwg365[address] [place], [place] [address]Dr.Charlee ChangWBC9.5 103/ulNormal4.0-11.0The [facility] Bryan Hospitalment on above:Performed By: #### CBC ####[facility] Xummddcxwf8500[address] [place], [place] [address]Dr.Charlee ChangOSMOLALITY URINEon 82-06-6472Cdmlcbffas, Pvlvy291 mOsmol/kgNoalThOhioHealth Pickerington Methodist Hospital Comment on above:Result Comment: 24 hr : 300 - 900 Random: 50 - 1400 After 12hr fluid restriction: >850Performed By: #### OSMOU ####[facility] Kztzymcsfm013[address] [place], [place] [address]Dr. Charlee PearsonPROF 14(COMP METB)on 31-93-3028Txeiqrp [Mass/Vol]3.0 g/dLCritically low3.4-5.0The [facility] HospitalComment on above:Performed By: #### CMP ####[facility] Piuynfukvc0979[address] [place], [place] [address]Dr.Charlee Pearson Albumin/Globulin [Mass ratio]0.8 {ratio}NormalThe St. Charles HospitalComment on above:Performed By: #### CMP ####[facility] Xxtrjsvbri1367[address] [place], [place] [address]Dr.Charlee ChangALP [Catalytic activity/Vol]122 U/L Critically ursv35-371Xaq St. [facility] HospitalComment on above:Performed By: #### CMP ####[facility] Cysmipcskz7724[address] [place], [place] [address]Dr. Charlee ChangALT [Catalytic activity/Vol]15 U/QVfmwwo19-79Msz [facility] Comment on above:Performed By: #### CMP ####[facility] Errpqvnloq285076 [address] [place], [place] [address]Dr.Charlee ChangAnion gap [Moles/Vol]11.3 mmol/LNormalThe St. [facility] HospitalComment on above:Performed By: #### CMP ####[facility] Mmwvgpxouy2811[address] [place], [place] [address]Dr. Charlee ChangAST [Catalytic activity/Vol]16 U/UBwpwnp31-24Zim [facility] Comment on above:Performed By: #### CMP ####[facility] Hvlkkysjbu384[address] [place], [place] [address]Dr.Charlee ChangBilirubin [Mass/Vol]0.4 mg/dL Normal0.2-1.0The [facility] HospitalComment on above:Performed By: #### CMP ####[facility] Cmwyerpove859[address] [place], [place] [address]Dr. Yilan ChangCalcium [Mass/Vol]9.0 mg/dLNormal8.5-10.1The [facility] HospitalComment on above:Performed By: #### CMP ####[facility] Ypobtazxlv2975[address] [place], [place] [address]Dr.Yilan ChangChloride [Moles/Vol]96 mmol/LCritically wln54-516Rdc [facility] HospitalComment on above:Performed By: #### CMP ####[facility] Bophymowyh1536[address] [place], [place] [address]Dr. Yilan ChangCO2 [Moles/Vol]26.9 mmol/LWiztlv45.0-32.0The [facility] HospitalComment on above:Performed By: #### CMP ####[facility] Miuuofrpkz720[address] [place], [place] [address]Dr.Yilan ChangCreatinine [Mass/Vol]0.60 mg/dLNormal 0.55-1.02The [facility] HospitalComment on above:Performed By: #### CMP ####[facility] Mafuxwhtbs8588[address] [place], [place] [address]Dr. Yilan ChangEGFR-AF KITTITIAN>60Normal>=60The [facility] HospitalComment on above: Performed By: #### CMP ####[facility] Iplwsqhinb1728[address] [place], [place] [address]Dr.Yilan ChangEGFR-NON AF KITTITIAN>60Normal>=60The [facility] HospitalComment on above:Performed By: #### CMP ####[facility] Gnyrihvfnm1385[address] [place], [place] [address]Dr.Yilan ChangGlobulin (S) [Mass/Vol]3.9 g/dLNormalThe St. [facility] HospitalComment on above:Performed By: #### CMP ####[facility] Tdkyotsqnj249[address] [place], [place] [address]Dr.Yilan ChangGlucose [Mass/Vol]94 mg/bUWollxb32-448Tth [facility] Comment on above:Performed By: #### CMP ####[facility] Nepfhgqinh545[address] [place], [place] [address]Dr.Yilan ChangPotassium [Moles/Vol]4.2 mmol/LNormal3.5-5.1The [facility] HospitalComment on above:Performed By: #### CMP ####[facility] Hpciffzgba230[address] [place], [place] [address]Dr. Yilan ChangProtein [Mass/Vol]6.9 g/dLNormal6.4-8.2The [facility] HospitalComment on above:Performed By: #### CMP ####[facility] Rktkqllsre822[address] [place], [place] [address]Dr.Yilan ChangSodium [Moles/Vol]130 mmol/LCritically kbq503-246Wjv [facility] HospitalComment on above:Performed By: #### CMP ####[facility] Hicpbcblek515[address] [place], [place] [address]Dr. Yilan ChangUrea nitrogen [Mass/Vol]3.0 mg/dLCritically low7.0-18.0The [facility] HospitalComment on above:Performed By: #### CMP ####[facility] Jqcvkyapcc2436[address] [place], [place] [address]Dr.Yilan ChangUrea nitrogen/Creatinine [Mass ratio]5.0 mg/mgNormalThe St. [facility] HospitalComment on above:Performed By: #### CMP ####[facility] Zydxjifyhe380[address] [place], [place] [address]Dr.Claudettelan ChangPROF CHEM 8 (BAS METB)on 14-58-3094Nhqvd gap [Moles/Vol]12.4 mmol/LNormalThe St. [facility] HospitalComment on above:Performed By: #### BMP ####[facility] Dlcjmeihnm560[address] [place], [place] [address]Dr.Yilan ChangCalcium [Mass/Vol]8.9 mg/dLNormal8.5-10.1The [facility] HospitalComment on above:Performed By: #### BMP ####[facility] Cawfdbmlpk319[address] [place], [place] [address]Dr.Yilan ChangChloride [Moles/Vol]98 mmol/OFfcioj05-470Yvb [facility] HospitalComment on above:Performed By: #### BMP ####[facility] Wojtdskxcg8629[address] [place], [place] [address]Dr.Yilan ChangCO2 [Moles/Vol]23.5 mmol/POsqalu58.0-32.0The [facility] HospitalComment on above:Performed By: #### BMP ####[facility] Yd[address]woqymm[address] [place] [address]Dr.Yilan ChangCreatinine [Mass/Vol]0.46 mg/dLCritically low0.55-1.02The [facility] HospitalCompont[facility] on above:Performed By: #### BMP ####[facility] Kyxqjybxjq25[address] [place] [address]Dr.Yilan ChangEGFR-AF KITTITIAN>60Normal>=60The [facility] HospitalComment on above:Performed By: #### BMP ####[facility] Pokrdypabd086[address] [place] [address]Dr.Yilan ChangEGFR-NON AF KITTITIAN>60Normal>=60The [facility] HospitalCompontiac general hospital on above:Performed By: #### BMP ####[facility] Bfvdqnpxqe1309[address] [place], [place] [address]Dr. Yilan ChangGlucose [Mass/Vol]88 mg/kVNzzreu35-652Nok [facility] HospitalCompontiac [facility] hospital on above:Performed By: #### BMP ####[facility] Kgxzocimov3725[address] [place], [place] [address]Dr.Yilan ChangPotassium [Moles/Vol]3.9 mmol/LNormal 3.5-5.1The [facility] HospitalCompontiac [facility] hospital on above:Performed By: #### BMP ####[facility] Skhemtgptm350[address] [place] [address]Dr.Yilan Pearson Sodium [Moles/Vol]130 mmol/LCritically ddx605-719Ybl [facility] on above:Performed By: #### BMP ####[facility] Ufivwquvjp13[address] [place] [address]Dr.Yilan ChangUrea nitrogen [Mass/Vol]2.0 mg/dL Critically low7.0-18.0The [facility] HospitalCompontiac [facility] hospital on above:Performed By: #### BMP ####[facility] Xivlvggwbt30[address] [place] [address]Dr. Yilan ChangUrea nitrogen/Creatinine [Mass ratio]4.3 mg/mgNormalThe St. [facility] HospitalCompontiac general hospital on above:Performed By: #### BMP ####[facility] Befcyzozmv[address] [place] [address]Dr.Yilan ChangAnion gap [Moles/Vol]10.1 mmol/LNormalThe St. [facility] HospitalComment on above:Performed By: #### BMP ####[facility] Vfglsiwxsz5759[address] [place], [place] [address]Dr.Yilan ChangCalcium [Mass/Vol]8.6 mg/dLNormal8.5-10.1The [facility] HospitalComment on above:Performed By: #### BMP ####[facility] Kqbdpfijll2733[address] [place], [place] [address]Dr.Yilan ChangChloride [Moles/Vol]95 mmol/LCritically esh57-263Sbi [facility] HospitalComment on above: Performed By: #### BMP ####[facility] Albdhuobpy318[address] [place], [place] [address]Dr.Yilan ChangCO2 [Moles/Vol]28.3 mmol/LNormal 21.0-32.0The [facility] HospitalComment on above:Performed By: #### BMP ####[facility] Irwwmgcogj755[address] [place], [place] [address]Dr. Yilan ChangCreatinine [Mass/Vol]0.45 mg/dLCritically low0.55-1.02The [facility] HospitalComment on above:Performed By: #### BMP ####[facility] Inhfovtbgz699[address] [place], [place] [address]Dr.Yilan ChangEGFR-AF KITTITIAN>60Normal>=60The [facility] HospitalComment on above:Performed By: #### BMP ####[facility] Prstungdkb5568[address] [place], [place] [address]Dr. Yilan ChangEGFR-NON AF KITTITIAN>60Normal>=60The [facility] HospitalCompontiac [facility] hospital on above:Performed By: #### BMP ####[facility] Kpkpkonfhs9068[address] [place], [place] [address]Dr.Yilan ChangGlucose [Mass/Vol]91 mg/wKReivzu11-[address] [facility] HospitalComment on above:Performed By: #### BMP ####[facility] Mykxrazmst784[address] [place], [place] [address]Dr.Yilan Pearson Potassium [Moles/Vol]3.4 mmol/LCritically low3.5-5.1The [facility] HospitalComment on above:Performed By: #### BMP ####[facility] Rgeftwklsw3460[address] [place], [place] [address]Dr.Yilan ChangSodium [Moles/Vol]130 mmol/LCritically zfd194-053Mhc [facility] HospitalComment on above:Performed By: #### BMP ####[facility] Qfkrmkolkx1923[address] [place], [place] [address]Dr. Yilan ChangUrea nitrogen [Mass/Vol]3.0 mg/dLCritically low7.0-18.0The [facility] HospitalComment on above:Performed By: #### BMP ####[facility] Nmckxseobv170[address] [place], [place] [address]Dr.Yilan ChangUrea nitrogen/Creatinine [Mass ratio]6.7 mg/mgNormSCCI Hospital LimaComment on above:Performed By: #### BMP ####[facility] Mwznrtezwn8799[address] [place], [place] [address]Dr.Yilan ChangXR COLONon 51-74-5293KG COLONMercy Health Anderson Hospital AUTO DIFFon 74-47-9197ZGDW #0.0 103/ulNormal0.0-0.1The [facility] HospitalCompontiac general hospital on above:Performed By: #### CBC ####[facility] Yqkhalbuwy7714[address] [place], [place] [address]Dr.Yilan ChangBasophils/100 WBC (Bld)0.2 %Normal0.2-2.0The [facility] HospitalComment on above:Performed By: #### CBC ####[facility] Rskzxfkqka6565[address] [place], [place] [address]Dr.Yilan ChangEO #0.0 103/ulNormal0.0-0.7The [facility] HospitalCompontiac general hospital on above:Performed By: #### CBC ####[facility] Xnbqvvvenr860[address] [place], [place] [address]Dr.Yilan ChangEosinophils/100 WBC (Bld)0.1 %Critically low0.9-7.0The [facility] HospitalComment on above:Performed By: #### CBC ####[facility] Aqbtoykllg834[address] [place], [place] [address]Dr. Charlee ChangErythrocyte distribution width (RBC) [Ratio]12.9 %Nbktun22.0-15.0The [facility] HospitalComment on above:Performed By: #### CBC ####[facility] Wuiiubwvmo5555[address] [place], [place] [address]Dr.Yiclaudette ChangHematocrit (Bld) [Volume fraction]28.7 %Critically low36.0-48.0The [facility] HospitalComment on above:Performed By: #### CBC ####[facility] Feknehpebx75[address] [place], [place] [address]Dr.Charlee ChangHemoglobin (Bld) [Mass/Vol]10.0 g/dL Critically low12.0-16.0The [facility] HospitalComment on above:Performed By: #### CBC ####[facility] Aeqixzxcwc705[address] [place], [place] [address]Dr. Yilan ChangIG #0.04 10e3/ulCritically high0.00-0.03The [facility] HospitalComment on above:Performed By: #### CBC ####[facility] Nddkytovvq296[address] [place], [place] [address]Dr.Yiclaudette ChangIG %0.5 %Normal0.0-0.5The [facility] HospitalComment on above:Performed By: #### CBC ####[facility] Kevsqesjkf0112[address] [place], [place] [address]Dr.Claudettelan ChangLYMPH #1.5 103/ulNormal1.2-3.8The [facility] HospitalComment on above:Performed By: #### CBC ####[facility] Cvzxkfwdxy025[address] [place], [place] [address]Dr. Yilan ChangLymphocytes/100 WBC (Bld)17.2 %Critically low20.5-60.0The [facility] HospitalComment on above:Performed By: #### CBC ####[facility] [address]zpbv[address] [place] [address]Dr.Charlee PearsonMANUAL DIFF REQ NONormalThe St. [facility] HospitalComment on above:Performed By: #### CBC ####[facility] Jmixjncwyg[address] [place] [address]Dr. Charlee PearsonH (RBC) [Entitic mass]31.3 fmTumvwi89.7-34.0The [facility] Comment on above:Performed By: #### CBC ####[facility] Avwzrpdikj2635[address] [place], [place] [address]Dr.Charlee PearsonHC (RBC) [Mass/Vol]34.8 g/dL Tgmeet20.9-35.2The [facility] HospitalComment on above:Performed By: #### CBC ####[facility] Txmknoifpx637[address] [place], [place] [address]Dr. Charlee PearsonV (RBC) [Entitic vol]89.7 nTSawrfi36.0-99.0The [facility] Comment on above:Performed By: #### CBC ####[facility] Mzaokvtjqg9532[address] [place], [place] [address]Dr.Charlee PearsonMONO #1.3 103/ulCritically high0.3-0.8The [facility] HospitalComment on above:Performed By: #### CBC ####[facility] Mkndppjvjf346[address] [place], [place] [address]Dr. Charlee PearsonMonocytes/100 WBC (Bld)15.1 %Critically high1.7-12.0The [facility] HospitalComment on above:Performed By: #### CBC ####[facility] Fpfusgrssk727[address] [place], [place] [address]Dr.Charlee PearsonNEUT #5.7 103/ulNormal1.4-6.5The [facility] HospitalComment on above:Performed By: #### CBC ####[facility] Gjpadchote6320[address] [place], [place] [address]Dr. Charlee PearsonNeutrophils/100 WBC (Bld)66.9 %Zwgrjg75.0-75.0The [facility] Comment on above:Performed By: #### CBC ####[facility] Goxmkohvub07[address] [place] [address]Dr.Charlee PearsonPlatelet mean volume (Bld) [Entitic vol]8.4 fLCritically low9.5-13.5The [facility] HospitalComment on above: Performed By: #### CBC ####[facility] Aemgxwvrkr2[address] [place] [address]Dr.Charlee HibpsZYP251 103/siTnalwp329-305Udf [facility] HospitalComment on above:Performed By: #### CBC ####[facility] Csamagqxbn3720[address] [place], [place] [address]Dr.Charlee ChangRBC3.20 106/ul Critically low4.20-5.40The [facility] HospitalComment on above:Performed By: #### CBC ####[facility] Gsosjcuxhk939[address] [place], [place] [address]Dr. Claudetteclaudette ChangWBC8.5 103/ulNormal4.0-11.0The [facility] HospitalComment on above: Performed By: #### CBC ####[facility] Frippxdlne686[address] [place], [place] [address]Dr.Claudetteclaudette ChangPROF 14(COMP METB)on 73-43-9749Xxsdksb [Mass/Vol]2.4 g/dLCritically low3.4-5.0The [facility] HospitalComment on above: Performed By: #### CMP ####[facility] Yefrqbxhhx357[address] [place], [place] [address]Dr.Charlee ChangAlbumin/Globulin [Mass ratio]0.7 {ratio} NormalThe St. Charles HospitalComment on above:Performed By: #### CMP ####[facility] Rthdctjxiu873[address] [place], [place] [address]Dr.Claudettelan ChangALP [Catalytic activity/Vol]82 U/INaksxh10-276Fmx [facility] HospitalComment on above: Performed By: #### CMP ####[facility] Ijamhfuefj300[address] [place], [place] [address]Dr.Claudettelan ChangALT [Catalytic activity/Vol]13 U/L Critically gmh44-76Fqt [facility] HospitalComment on above:Performed By: #### CMP ####[facility] Ryipfzkikf04[address] [place] [address]Dr. Yilan ChangAnion gap [Moles/Vol]8.4 mmol/LNormalThe St. [facility] HospitalComment on above:Performed By: #### CMP ####[facility] Wqkisagmbd1067 [place] [address]Dr.Yilan ChangAST [Catalytic activity/Vol]11 U/L Critically gdc92-88Jow [facility] HospitalComment on above:Performed By: #### CMP ####[facility] Khjftitfkw8846 [place] [address]Dr. Yilan ChangBilirubin [Mass/Vol]0.4 mg/dLNormal0.2-1.0The [facility] Comment on above:Performed By: #### CMP ####[facility] Grphvkxfif5460[address] [place], [place] [address]Dr.Yilan ChangCalcium [Mass/Vol]8.5 mg/dL Normal8.5-10.1The [facility] HospitalComment on above:Performed By: #### CMP ####[facility] Nimdwlattu8899[address] [place], [place] [address]Dr. Yilan ChangChloride [Moles/Vol]92 mmol/LCritically moj52-441Pmh [facility] HospitalComment on above:Performed By: #### CMP ####[facility] Evfrpnbfuh2690 [place] [address]Dr.Yilan ChangCO2 [Moles/Vol] 31.4 mmol/BWorkvm62.0-32.0The [facility] HospitalComment on above:Performed By: #### CMP ####[facility] Jhwlaczhaa98[address] [place], [place] [address]Dr.Yilan ChangCreatinine [Mass/Vol]0.53 mg/dLCritically low0.55-1.02The [facility] HospitalComment on above:Performed By: #### CMP ####[facility] Gruzcjugyi8679[address] [place], [place] [address]Dr.Yilan ChangEGFR-AF KITTITIAN>60Normal>=60The [facility] HospitalComment on above:Performed By: #### CMP ####[facility] Clzgputnoj1872 [place] [address]Dr. Yilan ChangEGFR-NON AF KITTITIAN>60Normal>=60The [facility] HospitalComment on above:Performed By: #### CMP ####[facility] Esgtwhaalf120[address] [place], [place] [address]Dr.Yilan ChangGlobulin (S) [Mass/Vol]3.5 g/dLNormalThe St. [facility] HospitalComment on above:Performed By: #### CMP ####[facility] Damzfytncs364[address] [place], [place] [address]Dr.Yilan ChangGlucose [Mass/Vol]100 mg/vZVjmkxj60-207Lxn [facility] HospitalComment on above:Performed By: #### CMP ####[facility] Snvnrddknr674[address] [place], [place] [address]Dr.Yilan ChangPotassium [Moles/Vol]3.8 mmol/LNormal3.5-5.1The [facility] HospitalComment on above:Performed By: #### CMP ####[facility] Ynqieohdly65[address] [place], [place] [address]Dr.Yilan ChangProtein [Mass/Vol]5.9 g/dLCritically low6.4-8.2The [facility] HospitalComment on above: Performed By: #### CMP ####[facility] Jmieyilwdh909[address] [place], [place] [address]Dr.Yilan ChangSodium [Moles/Vol]128 mmol/LCritically ddj509-421Loq [facility] HospitalComment on above:Performed By: #### CMP ####[facility] Qnftfllrng388[address] [place], [place] [address]Dr. Yilan ChangUrea nitrogen [Mass/Vol]3.0 mg/dLCritically low7.0-18.0The [facility] HospitalComment on above:Performed By: #### CMP ####[facility] Fzagghzuea03[address] [place], [place] [address]Dr.Yilan ChangUrea nitrogen/Creatinine [Mass ratio]5.7 mg/mgNormalThe St. [facility] HospitalComment on above:Performed By: #### CMP ####[facility] Nafbmumdwh[address] [place], [place] [address]Dr.Yilan ChangPROF CHEM 8 (BAS METB)on 05-33-3960Opgmo gap [Moles/Vol]8.5 mmol/LNormalThe [facility] HospitalComment on above:Performed By: #### BMP ####[facility] Voahjvehfm7[address] [place], [place] [address]Dr.Yilan ChangCalcium [Mass/Vol]8.5 mg/dLNormal8.5-10.1The [facility] HospitalComment on above:Performed By: #### BMP ####[facility] Mlrfzysgde[address] [place], [place] [address]Dr.Yilan ChangChloride [Moles/Vol]95 mmol/LCritically nqq01-315Mqq [facility]. [facility] HospitalComment on above: Performed By: #### BMP ####[facility] Kacpwsoxya9[address] [place], [place] [address]Dr.Yilan ChangCO2 [Moles/Vol]30.5 mmol/LNormal 21.0-32.0The [facility] HospitalComment on above:Performed By: #### BMP ####[facility] Tdifrcfeto2436[address] [place], [place] [address]Dr. Yilan ChangCreatinine [Mass/Vol]0.43 mg/dLCritically low0.55-1.02The [facility] HospitalComment on above:Performed By: #### BMP ####[facility] Stzhxogarv0155[address] [place], [place] [address]Dr.Yilan ChangEGFR-AF KITTITIAN>60Normal>=60The [facility] HospitalComment on above:Performed By: #### BMP ####[facility] Pigqipuepg5025[address] [place], [place] [address]Dr. Yilan ChangEGFR-NON AF KITTITIAN>60Normal>=60The [facility] HospitalComment on above:Performed By: #### BMP ####[facility] Erykfsxgyw5628[address] [place], [place] [address]Dr.Yilan ChangGlucose [Mass/Vol]86 mg/lJGlallc62-[address] [facility] HospitalComment on above:Performed By: #### BMP ####[facility] Emyepbrgir[address] [place], [place] [address]Dr.Yilan Pearson Potassium [Moles/Vol]3.0 mmol/LCritically low3.5-5.1The [facility] HospitalComment on above:Performed By: #### BMP ####[facility] Vbgxmtejob0901[address] [place], [place] [address]Dr.Yilan ChangSodium [Moles/Vol]130 mmol/LCritically yxx578-657Mlw [facility] HospitalComment on above:Performed By: #### BMP ####[facility] Okkzvodiqr108[address] [place], [place] [address]Dr. Yilan ChangUrea nitrogen [Mass/Vol]2.0 mg/dLCritically low7.0-18.0The [facility] HospitalComment on above:Performed By: #### BMP ####[facility] Axqildahde659[address] [place], [place] [address]Dr.Yilan ChangUrea nitrogen/Creatinine [Mass ratio]4.7 mg/mgNormalThe St. Charles HospitalComment on above:Performed By: #### BMP ####[facility] Odjplhfrod4823[address] [place], [place] [address]Dr.Yilan ChangAnion gap [Moles/Vol]7.2 mmol/LNormalThe St. Charles HospitalComment on above:Performed By: #### BMP ####[facility] Isadmdykcj1975[address] [place], [place] [address]Dr.Yilan ChangCalcium [Mass/Vol]9.1 mg/dLNormal8.5-10.1The [facility] HospitalComment on above:Performed By: #### BMP ####[facility] Kdolhnpwzh356[address] [place], [place] [address]Dr.Yilan ChangChloride [Moles/Vol]92 mmol/LCritically uik85-583Opg [facility] HospitalComment on above:Performed By: #### BMP ####[facility] Ggbdbxtlyf704[address] [place], [place] [address]Dr.Yilan ChangCO2 [Moles/Vol] 32.3 mmol/LCritically high21.0-32.0The [facility] HospitalComment on above: Performed By: #### BMP ####[facility] Awtgvwsixd374[address] [place], [place] [address]Dr.Yilan ChangCreatinine [Mass/Vol]0.60 mg/dLNormal 0.55-1.02The [facility] HospitalComment on above:Performed By: #### BMP ####[facility] Axomwoizcx3315[address] [place], [place] [address]Dr. Yilan ChangEGFR-AF KITTITIAN>60Normal>=60The [facility] HospitalComment on above: Performed By: #### BMP ####[facility] Hajxfaifql484[address] [place], [place] [address]Dr.Yilan ChangEGFR-NON AF KITTITIAN>60Normal>=60The [facility] HospitalComment on above:Performed By: #### BMP ####[facility] Icsyqgaecp734[address] [place], [place] [address]Dr.Yilan ChangGlucose [Mass/Vol]104 mg/dNEaausy52-189Cuy St. [facility] HospitalComment on above:Performed By: #### BMP ####[facility] Nrvorqhkid2722[address] [place], [place] [address]Dr.Yilan ChangPotassium [Moles/Vol]3.5 mmol/LNormal3.5-5.1The [facility] HospitalComment on above:Performed By: #### BMP ####[facility] Urxbobzydc7815[address] [place], [place] [address]Dr.Yilan ChangSodium [Moles/Vol]128 mmol/LCritically zqw162-240Xgg [facility] HospitalComment on above: Performed By: #### BMP ####[facility] Qjvrtutkpn314[address] [place], [place] [address]Dr.Yilan ChangUrea nitrogen [Mass/Vol]2.0 mg/dL Critically low7.0-18.0The [facility] HospitalComment on above:Performed By: #### BMP ####[facility] [address] [place] [address]Dr. Yilan ChangUrea nitrogen/Creatinine [Mass ratio]3.3 mg/mgNormalThe St. Charles HospitalComment on above:Performed By: #### BMP ####[facility] Hwygytdxyi127[address] [place], [place] [address]Dr.Yilan ChangAnion gap [Moles/Vol]7.8 mmol/LNormalThe St. Charles HospitalComment on above:Performed By: #### BMP ####[facility] Qvmhhxrrgr745[address] [place], [place] [address]Dr.Yilan ChangCalcium [Mass/Vol]8.2 mg/dLCritically low8.5-10.1The [facility] HospitalComment on above:Performed By: #### BMP ####[facility] Imgzcbpiwz9859[address] [place], [place] [address]Dr.Yilan ChangChloride [Moles/Vol]91 mmol/LCritically esl25-747Lvs St[facility] HospitalComment on above: Performed By: #### BMP ####[facility] Sfawsvjqiy3914[address] [place], [place] [address]Dr.Yilan ChangCO2 [Moles/Vol]31.2 mmol/LNormal 21.0-32.0The [facility] HospitalComment on above:Performed By: #### BMP ####[facility] Wxvofufvmi049[address] [place], [place] [address]Dr. Yilan ChangCreatinine [Mass/Vol]0.54 mg/dLCritically low0.55-1.02The [facility] HospitalComment on above:Performed By: #### BMP ####[facility] Hkiwlmtkuz2845[address] [place], [place] [address]Dr.Yilan ChangEGFR-AF KITTITIAN>60Normal>=60The [facility] HospitalComment on above:Performed By: #### BMP ####[facility] Bhqdrqzvet413[address] [place], [place] [address]Dr. Yilan ChangEGFR-NON AF KITTITIAN>60Normal>=60The [facility] HospitalComment on above:Performed By: #### BMP ####[facility] Ftveqmxrma5522[address] [place], [place] [address]Dr.Charlee ChangGlucose [Mass/Vol]101 mg/lUGqfpwe34-[address] [facility] HospitalComment on above:Performed By: #### BMP ####[facility] Vrtvrcyqzb158[address] [place], [place] [address]Dr.Charlee Pearson Potassium [Moles/Vol]4.0 mmol/LNormal3.5-5.1The [facility] HospitalComment on above:Performed By: #### BMP ####[facility] Dpjaypkpyr1467[address] [place], [place] [address]Dr.Charlee ChangSodium [Moles/Vol]126 mmol/LCritically teg257-388Kyu St[facility] HospitalComment on above:Performed By: #### BMP ####[facility] Hlroagcmjb1316[address] [place], [place] [address]Dr. Charlee ChangUrea nitrogen [Mass/Vol]4.0 mg/dLCritically low7.0-18.0The [facility] HospitalComment on above:Performed By: #### BMP ####[facility] Vttvpzbkah870[address] [place], [place] [address]Dr.Claudettelan ChangUrea nitrogen/Creatinine [Mass ratio]7.4 mg/mgNormalThe St. [facility] HospitalComment on above:Performed By: #### BMP ####[facility] Ykeplnwrwu9360[address] [place], [place] [address]Dr.Charlee PearsonCBC AUTO DIFFon [id number] #0.0 103/ulNormal0.0-0.1The [facility] HospitalComment on above:Performed By: #### CBC ####[facility] Lenaplkcui737[address] [place], [place] [address]Dr. Claudettelan ChangBasophils/100 WBC (Bld)0.2 %Normal0.2-2.0The [facility] HospitalComment on above:Performed By: #### CBC ####[facility] Tjmhbikwvp267476 [address] [place], [place] [address]Dr.Yilan ChangEO #0.3 103/ulNormal0.0-0.7The [facility] HospitalComment on above:Performed By: #### CBC ####[facility] Yclszkdzmo045[address] [place], [place] [address]Dr.Yilan ChangEosinophils/100 WBC (Bld)2.4 %Normal0.9-7.0The [facility] HospitalComment on above:Performed By: #### CBC ####[facility] Uxeecxdtpu9865[address] [place], [place] [address]Dr.Yilan ChangErythrocyte distribution width (RBC) [Ratio]12.9 %Normal 11.0-15.0The [facility] HospitalComment on above:Performed By: #### CBC ####[facility] Gzwoftasxo36[address] [place], [place] [address]Dr. Yilan ChangHematocrit (Bld) [Volume fraction]28.0 %Critically low36.0-48.0The [facility] HospitalComment on above:Performed By: #### CBC ####[facility] Vmvhurzazq970[address] [place], [place] [address]Dr.Claudetteclaudette ChangHemoglobin (Bld) [Mass/Vol]9.8 g/dLCritically low12.0-16.0The [facility] HospitalComment on above:Performed By: #### CBC ####[facility] Entilcvzka8[address] [place], [place] [address]Dr.Yilan ChangIG #0.06 10e3/ulCritically high0.00-0.[address] [facility] HospitalComment on above:Performed By: #### CBC ####[facility] Qnxfpvqxsf826[address] [place], [place] [address]Dr.Yiclaudette ChangIG % 0.6 %Critically high0.0-0.5The [facility] HospitalComment on above:Performed By: #### CBC ####[facility] Vjvugyoptl0510[address] [place], [place] [address]Dr.Yilan ChangLYMPH #1.4 103/ulNormal1.2-3.8The [facility] HospitalComment on above:Performed By: #### CBC ####[facility] Zdvfxaaeza7526[address] [place], [place] [address]Dr.Yilan ChangLymphocytes/100 WBC (Bld)13.1 % Critically low20.5-60.0The [facility] HospitalComment on above:Performed By: #### CBC ####[facility] [address] [place] [address]DrOttoniel PearsonMANUAL DIFF REQNONormalThe St. [facility] HospitalComment on above: Performed By: #### CBC ####[facility] Magnyelqvc027[address] [place], [place] [address]Dr.Charlee PearsonH (RBC) [Entitic mass]31.4 pgNormal 26.7-34.0The [facility] HospitalComment on above:Performed By: #### CBC ####[facility] Cbevggggxf544[address] [place], [place] [address]DrOttoniel PearsonMADISON AVENUE [facility] (RBC) [Mass/Vol]35.0 g/gSMdtkgu41.9-35.2The [facility] Comment on above:Performed By: #### CBC ####[facility] Amhlmqikty550[address] [place], [place] [address]Dr.Charlee PearsonV (RBC) [Entitic vol]89.7 fL Pkeukf77.0-99.0The [facility] HospitalComment on above:Performed By: #### CBC ####[facility] Kirsvzicpa049[address] [place], [place] [address]DrOttoniel Castro #1.7 103/ulCritically high0.3-0.8The [facility] HospitalComment on above:Performed By: #### CBC ####[facility] Zkwpvrzska185[address] [place], [place] [address]DrChetan Leeocytes/100 WBC (Bld)16.0 %Critically high1.7-12.0The [facility] HospitalComment on above:Performed By: #### CBC ####[facility] Pxpxrwyawc8550[address] [place], [place] [address]DrOttoniel Ryder #7.1 103/ulCritically high1.4-6.5The [facility] HospitalComment on above:Performed By: #### CBC ####[facility] Azeqppgele175[address] [place], [place] [address]Dr.Yilan ChangNeutrophils/100 WBC (Bld)67.7 %Normal 43.0-75.0The [facility] HospitalComment on above:Performed By: #### CBC ####[facility] [address]ir[address] [place] [address]Dr. Charlee PearsonPlatelet mean volume (Bld) [Entitic vol]9.0 fLCritically low9.5-13.[address] [facility] HospitalComment on above:Performed By: #### CBC ####[facility] Bkfepvqkgy2845[address] [place], [place] [address]Dr.Charlee PearsonPLT454 103/ulCritically ylrc377-176Bbb [facility] HospitalComment on above:Performed By: #### CBC ####[facility] Gfduokruve8524[address] [place], [place] [address]Dr.Charlee PearsonRBC3.12 106/ulCritically low4.20-5.40The [facility] Comment on above:Performed By: #### CBC ####[facility] Ysubipvdhw898[address] [place], [place] [address]Dr.Charlee PearsonWBC10.5 103/ulNormal4.0-11.0 [facility] HospitalComment on above:Performed By: #### CBC ####[facility] Gpivnqelbm0636[address] [place], [place] [address]Dr.Charlee PearsonPROF 14(COMP METB)on 28-94-0050Niohvzc [Mass/Vol]2.7 g/dLCritically low3.4-5.0The [facility] HospitalComment on above:Performed By: #### CMP ####[facility] Hlgeqxejps8437[address] [place], [place] [address]Dr.Charlee Pearson Albumin/Globulin [Mass ratio]0.8 {ratio}NormalThe St. Charles HospitalComment on above:Performed By: #### CMP ####[facility] Dmejcznkql6665[address] [place], [place] [address]Dr.Charlee PearsonALP [Catalytic activity/Vol]86 U/LNormal 46-116The [facility] HospitalComment on above:Performed By: #### CMP ####[facility] [address]jspm[address] [place] [address]Dr.Yilan ChangALT [Catalytic activity/Vol]14 U/IKvlrsc05-99Qnc [facility] HospitalComment on above: Performed By: #### CMP ####[facility] Bdfvuzvave167[address] [place], [place] [address]Dr.Charlee ChangAnion gap [Moles/Vol]11.0 mmol/LNormal The [facility] HospitalComment on above:Performed By: #### CMP ####[facility] Fljcbluumz4179[address] [place], [place] [address]Dr.Yiclaudette ChangAST [Catalytic activity/Vol]15 U/VYytonz42-97Jon [facility] HospitalComment on above: Performed By: #### CMP ####[facility] Nttawqwsur2948[address] [place], [place] [address]Dr.Yilan ChangBilirubin [Mass/Vol]0.6 mg/dLNormal 0.2-1.0The [facility] HospitalComment on above:Performed By: #### CMP ####[facility] Evprejqgnl9995[address] [place], [place] [address]Dr.Yilan Pearson Calcium [Mass/Vol]8.6 mg/dLNormal8.5-10.1The [facility] HospitalComment on above: Performed By: #### CMP ####[facility] Uvpjkqznxf5077[address] [place], [place] [address]Dr.Yilan ChangChloride [Moles/Vol]93 mmol/LCritically srv96-851Wsz [facility] HospitalComment on above:Performed By: #### CMP ####[facility] Pefgrepjic735[address] [place], [place] [address]Dr. Yilan ChangCO2 [Moles/Vol]25.3 mmol/XOftglq37.0-32.0The [facility] HospitalComment on above:Performed By: #### CMP ####[facility] Nhbtssmaah4829[address] [place], [place] [address]Dr.Yilan ChangCreatinine [Mass/Vol]0.40 mg/dL Critically low0.55-1.02The [facility] HospitalComment on above:Performed By: #### CMP ####[facility] [address]vcck[address] [place] [address]Dr. Yilan ChangEGFR-AF KITTITIAN>60Normal>=60The [facility] HospitalComment on above: Performed By: #### CMP ####[facility] Wmljxponij3448[address] [place], [place] [address]Dr.Yilan ChangEGFR-NON AF KITTITIAN>60Normal>=60The [facility] HospitalComment on above:Performed By: #### CMP ####[facility] Hdyfdvlzuw6979[address] [place], [place] [address]Dr.Yilan ChangGlobulin (S) [Mass/Vol]3.6 g/dLNormalThOhioHealth Pickerington Methodist HospitalComment on above:Performed By: #### CMP ####[facility] Vqpyqtmobp097[address] [place], [place] [address]Dr.Yilan ChangGlucose [Mass/Vol]93 mg/xLEwdwni18-441Tqa [facility] Comment on above:Performed By: #### CMP ####[facility] Objrulqwbv9736[address] [place], [place] [address]Dr.Yilan ChangPotassium [Moles/Vol]4.3 mmol/LNormal3.5-5.1The [facility] HospitalComment on above:Performed By: #### CMP ####[facility] Oyjkjzifps3518[address] [place], [place] [address]Dr. Yilan ChangProtein [Mass/Vol]6.3 g/dLCritically low6.4-8.2The [facility] Comment on above:Performed By: #### CMP ####[facility] Tafvyfqmpm127[address] [place], [place] [address]Dr.Yilan ChangSodium [Moles/Vol]125 mmol/L Critically efc127-881Tnk [facility] HospitalComment on above:Performed By: #### CMP ####[facility] Vevvnnchkk6526[address] [place], [place] [address]Dr. Yilan ChangUrea nitrogen [Mass/Vol]2.0 mg/dLCritically low7.0-18.0The [facility] HospitalComment on above:Performed By: #### CMP ####[facility] [address] [place] [address]Dr.Yilan ChangUrea nitrogen/Creatinine [Mass ratio]5.0 mg/mgNormalThe St. [facility] HospitalComment on above:Performed By: #### CMP ####[facility] Kulizcivqp2838[address] [place], [place] [address]Dr.Yilan ChangPROF CHEM 8 (BAS METB)on [id number] gap [Moles/Vol]8.4 mmol/LNormalThe [facility] HospitalComment on above:Performed By: #### BMP ####[facility] Zlhggsselc404[address] [place], [place] [address]Dr.Yilan ChangCalcium [Mass/Vol]8.1 mg/dLCritically low8.5-10.1The [facility] HospitalComment on above:Performed By: #### BMP ####[facility] Vopkeqgpzv018[address] [place], [place] [address]Dr.Yilan ChangChloride [Moles/Vol]88 mmol/LCritically odl62-658Uud [facility] HospitalComment on above: Performed By: #### BMP ####[facility] Ixyzftlmwp430[address] [place], [place] [address]Dr.Yilan ChangCO2 [Moles/Vol]28.1 mmol/LNormal 21.0-32.0The [facility] HospitalComment on above:Performed By: #### BMP ####[facility] Fszwhveszk945[address] [place], [place] [address]Dr. Yilan ChangCreatinine [Mass/Vol]0.50 mg/dLCritically low0.55-1.02The [facility] HospitalComment on above:Performed By: #### BMP ####[facility] Ibazhzhhjo8575[address] [place], [place] [address]Dr.Yilan ChangEGFR-AF KITTITIAN>60Normal>=60The [facility] HospitalComment on above:Performed By: #### BMP ####[facility] Jbxzzfukeo4518[address] [place], [place] [address]Dr. Yilan ChangEGFR-NON AF KITTITIAN>60Normal>=60The [facility] HospitalComment on above:Performed By: #### BMP ####[facility] [address]lvktv[address] [place] [address]Dr.Yilan ChangGlucose [Mass/Vol]106 mg/oVSvwlrb42-[address] [facility] HospitalComment on above:Performed By: #### BMP ####[facility] Kcefgzdlfo580[address] [place], [place] [address]Dr.Yilan Pearson Potassium [Moles/Vol]3.5 mmol/LNormal3.5-5.1The [facility] HospitalComment on above:Performed By: #### BMP ####[facility] Eznfqhrkmp457[address] [place], [place] [address]Dr.Yilan ChangSodium [Moles/Vol]121 mmol/LCritically byj930-968Lnr [facility] HospitalComment on above:Performed By: #### BMP ####[facility] Dcxpqbzfhg5727[address] [place], [place] [address]Dr. Yilan ChangUrea nitrogen [Mass/Vol]4.0 mg/dLCritically low7.0-18.0The [facility] HospitalComment on above:Performed By: #### BMP ####[facility] Sydxsjuxaq4379[address] [place], [place] [address]Dr.Yilan ChangUrea nitrogen/Creatinine [Mass ratio]8.0 mg/mgNormalThe St. [facility] HospitalComment on above:Performed By: #### BMP ####[facility] Isilauiajm260[address] [place], [place] [address]Dr.Yilan ChangAnion gap [Moles/Vol]8.0 mmol/LNormalThe St. [facility] HospitalComment on above:Performed By: #### BMP ####[facility] Gblrzwyeyh939[address] [place], [place] [address]Dr.Yilan ChangCalcium [Mass/Vol]8.7 mg/dLNormal8.5-10.1The [facility] HospitalComment on above:Performed By: #### BMP ####[facility] Klzlqjwynr395[address] [place], [place] [address]Dr.Yilan ChangChloride [Moles/Vol]90 mmol/LCritically wdv66-953Uwn [facility] HospitalComment on above:Performed By: #### BMP ####[facility] [address]vykwcbu[address] [place] [address]Dr.Yilan ChangCO2 [Moles/Vol] 29.8 mmol/ZUyykyq49.0-32.0The [facility] HospitalComment on above:Performed By: #### BMP ####[facility] Vomvmargjt547[address] [place], [place] [address]Dr.Yilan ChangCreatinine [Mass/Vol]0.40 mg/dLCritically low0.55-1.02The [facility] HospitalComment on above:Performed By: #### BMP ####[facility] Hlpnqhlynl4911[address] [place], [place] [address]Dr.Yilan ChangEGFR-AF KITTITIAN>60Normal>=60The [facility] HospitalComment on above:Performed By: #### BMP ####[facility] Bsjafcyjzx2210[address] [place], [place] [address]Dr. Yilan ChangEGFR-NON AF KITTITIAN>60Normal>=60The [facility] HospitalComment on above:Performed By: #### BMP ####[facility] Utuqmrywfy715[address] [place], [place] [address]Dr.Yilan ChangGlucose [Mass/Vol]109 mg/dLCritically gwms73-817Rfc [facility] on above:Performed By: #### BMP ####[facility] Dodkarjcrn1649[address] [place], [place] [address]Dr. Yilan ChangPotassium [Moles/Vol]3.8 mmol/LNormal3.5-5.1The [facility] Comment on above:Performed By: #### BMP ####[facility] Xhmzvxpwxg832[address] [place], [place] [address]Dr.Yilan ChangSodium [Moles/Vol]123 mmol/L Critically qva757-484Kyh [facility] on above:Result Comment: TEST REPEATED CRITICAL VALUE VERIFIEDPerformed By: #### BMP ####[facility] Tcgkfuiirm7[address] [place], [place] [address]Dr.Yilan ChangUrea nitrogen [Mass/Vol]2.0 mg/dLCritically low7.0-18.0The [facility] HospitalComment on above: Performed By: #### BMP ####[facility] Ubpwcaqplb665[address] [place], [place] [address]Dr.Yilan ChangUrea nitrogen/Creatinine [Mass ratio]5.0 mg/mgNormalThe St. [facility] HospitalComment on above:Performed By: #### BMP ####[facility] Aieyhccoqa[address] [place], [place] [address]Dr. Yilan ChangAnion gap [Moles/Vol]9.1 mmol/LNormalThe [facility] HospitalComment on above:Performed By: #### BMP ####[facility] Iqbtgkbfbt27[address] [place], [place] [address]Dr.Yilan ChangCalcium [Mass/Vol]8.6 mg/dLNormal 8.5-10.1The [facility] HospitalComment on above:Performed By: #### BMP ####[facility] Ridddehgmh9900[address] [place], [place] [address]Dr. Yilan ChangChloride [Moles/Vol]94 mmol/LCritically bsa93-663Ars [facility] HospitalComment on above:Performed By: #### BMP ####[facility] Vnrqfktizv224[address] [place], [place] [address]Dr.Yilan ChangCO2 [Moles/Vol] 27.4 mmol/DKrpwuj05.0-32.0The [facility] HospitalComment on above:Performed By: #### BMP ####[facility] Hlhnvrydwu394[address] [place], [place] [address]Dr.Yilan ChangCreatinine [Mass/Vol]0.44 mg/dLCritically low0.55-1.02The [facility] HospitalComment on above:Performed By: #### BMP ####[facility] Pxtvmivlpj3664[address] [place], [place] [address]Dr.Yilan ChangEGFR-AF KITTITIAN>60Normal>=60The [facility] HospitalComment on above:Performed By: #### BMP ####[facility] Blurrzwbiv213[address] [place], [place] [address]Dr. Yilan ChangEGFR-NON AF KITTITIAN>60Normal>=60The [facility]Comment on above:Performed By: #### BMP ####[facility] Nxnvxzvowd8712[address] [place], [place] [address]Dr.Yilan ChangGlucose [Mass/Vol]93 mg/gBWkvqyh87-[address] [facility] HospitalComment on above:Performed By: #### BMP ####[facility] Oqddmdwlld805[address] [place], [place] [address]Dr.Yilan Pearson Potassium [Moles/Vol]4.5 mmol/LNormal3.5-5.1The [facility] HospitalComment on above:Performed By: #### BMP ####[facility] Jdwzzrgbrv3424[address] [place], [place] [address]Dr.Yilan ChangSodium [Moles/Vol]126 mmol/LCritically cqm708-096Nca [facility] HospitalComment on above:Performed By: #### BMP ####[facility] Uwdlqugxqo394[address] [place], [place] [address]Dr. Yilan ChangUrea nitrogen [Mass/Vol]3.0 mg/dLCritically low7.0-18.0The [facility] HospitalComment on above:Performed By: #### BMP ####[facility] Jukccbqqca380[address] [place], [place] [address]Dr.Yilan ChangUrea nitrogen/Creatinine [Mass ratio]6.8 mg/mgNormalThe [facility]. [facility] HospitalCompontiac general hospital on above:Performed By: #### BMP ####[facility] Jliwavmilc[address] [place], [place] [address]Dr.Yilan ChangCBC AUTO DIFFon [id number] #0.0 103/ulNormal0.0-0.1The [facility] HospitalComment on above:Performed By: #### CBC ####[facility] Tqnzrblawk[address] [place], [place] [address]Dr. Yilan ChangBasophils/100 WBC (Bld)0.2 %Normal0.2-2.0The [facility] HospitalComment on above:Performed By: #### CBC ####[facility] [address]wkvuvgxqb0[address] StreetB[place], [place] [address]Ti.Yilan ChangEO #0.0 103/ulNormal0.0-0.7The [facility] HospitalComment on above:Performed By: #### CBC ####[facility] Najmzisexs267[address] [place], [place] [address]Dr.Yilan ChangEosinophils/100 WBC (Bld)0.0 %Critically low0.9-7.0The [facility] HospitalComment on above: Performed By: #### CBC ####[facility] Rxmdijicsv707[address] [place], [place] [address]Dr.Yilan ChangErythrocyte distribution width (RBC) [Ratio]12.7 %Sadqfr86.0-15.0The [facility] HospitalComment on above:Performed By: #### CBC ####[facility] Bcwioikvbq[address] [place], [place] [address]Dr.Claudettelan ChangHematocrit (Bld) [Volume fraction]32.2 %Critically low 36.0-48.0The [facility] HospitalComment on above:Performed By: #### CBC ####[facility] Kthbulomuf9[address] [place], [place] [address]Dr. Charlee ChangHemoglobin (Bld) [Mass/Vol]11.2 g/dLCritically low12.0-16.0The [facility] Charles HospitalComment on above:Performed By: #### CBC ####[facility] Owvfxfqfxo4899[address] [place], [place] [address]Dr.Yilan ChangIG #0.01 10e3/ulNormal0.00-0.03The [facility] Charles HospitalComment on above:Performed By: #### CBC ####[facility] Fskuwojzdc635[address] [place], [place] [address]Dr. Yilan ChangIG %0.1 %Normal0.0-0.5The [facility] HospitalComment on above:Performed By: #### CBC ####[facility] Mwhemelwvo8559[address] [place], [place] [address]Dr.Yilan ChangLYMPH #0.9 103/ulCritically low1.2-3.8The [facility] HospitalComment on above:Performed By: #### CBC ####[facility] Kqnugosplk5[address] [place] [address]Dr.Charlee PearsonLymphocytes/100 WBC (Bld)11.5 %Critically low20.5-60.0The [facility] HospitalComment on above: Performed By: #### CBC ####[facility] Xcbgvprgcz0[address] [place] [address]Dr.Charlee PearsonMANUAL DIFF REQNONormalThe [place] HospitalComment on above:Performed By: #### CBC ####[facility] Nzioutayde9095[address] [place], [place] [address]Dr.Claudetteclaudette PearsonH (RBC) [Entitic mass]31.0 czTntuvd05.7-34.0The [facility] HospitalComment on above: Performed By: #### CBC ####[facility] Tztrhkabjv0920[address] [place], [place] [address]Dr.Charlee PearsonHC (RBC) [Mass/Vol]34.8 g/dLNormal 29.9-35.2The [facility] HospitalComment on above:Performed By: #### CBC ####[facility] Yvrrqvnsev7938[address] [place], [place] [address]Dr. Charlee PearsonMCV (RBC) [Entitic vol]89.2 xEGdmfbk58.0-99.0The [facility] Comment on above:Performed By: #### CBC ####[facility] Aigdmehqda870[address] [place], [place] [address]Dr.Charlee PearsonMONO #1.2 103/ulCritically high0.3-0.8The [facility] HospitalComment on above:Performed By: #### CBC ####[facility] Huyvtoacbs516[address] [place], [place] [address]Dr. Charlee MichelMonocytes/100 WBC (Bld)14.3 %Critically high1.7-12.0The [facility] HospitalComment on above:Performed By: #### CBC ####[facility] Coqwtpabvw6527[address] [place], [place] [address]Dr.Charlee PearsonNEUT #6.0 103/ulNormal1.4-6.5The [facility] HospitalComment on above:Performed By: #### CBC ####[facility] Pyzzxkysil48[address] [place] [address]Dr. Charlee PearsonNeutrophils/100 WBC (Bld)73.9 %Agohtv05.0-75.0The [facility] Comment on above:Performed By: #### CBC ####[facility] Eiwcjpqkbv0550 [place] [address]Dr.Charlee PearsonPlatelet mean volume (Bld) [Entitic vol]8.8 fLCritically low9.5-13.5The [facility] HospitalComment on above: Performed By: #### CBC ####[facility] Ffxsuivjxi9615[address] [place], [place] [address]Dr.Charlee HjkpuUFV545 103/syOsehwv587-406Kps St. Charles HospitalComment on above:Performed By: #### CBC ####[facility] Loobpjrexi177[address] [place], [place] [address]Dr.Charlee ChangRBC3.61 106/ul Critically low4.20-5.40The [facility] HospitalComment on above:Performed By: #### CBC ####[facility] Lukitdxsei0636[address] [place], [place] [address]Dr. Charlee PearsonWBC8.1 103/ulNormal4.0-11.0The [facility] HospitalComment on above: Performed By: #### CBC ####[facility] Nrowbylmbx715[address] [place], [place] [address]Dr.Charlee ChangCREATININE URINEon 87-92-5829SZEEY CREAT 40.99 mg/yGDhfjqw26.00-300.00The [facility] HospitalComment on above:Performed By: #### DU GRANADOS ####[facility] Yidvbwohhs[address] [place], [place] [address]Dr. Charlee ChangCT ABD/PELV W CONon 92-44-4217JD ABD/PELV W CONNormal The [facility] HospitalCovid-19 PCR (CVDTBH)on 83-22-3346AMEZ-CoV-2 (COVID-19) RNA LORENZO+probe Ql (Unsp spec)Not detectedNormalNOT DETECTEDThe [facility] Comment on above:Result Comment: When diagnostic testing is negative, the possibility of a false negative should be considered inthe context of a patient's recent exposures and the presence of clinical signs and sympt omsconsistent with SARS-CoV-2.This test is not yet approved or cleared by the [place] FDA. When there are no FDA-approved or cleared tests available, and other criteria are met, FDA can make tests available under an emergency access mechanism called an Emergency Use Authorization (EUA). The EUA for this test is supported by the [place] of Health and Human Service's declaration that circumstances exist to justify the emergency use of in vitro diagnostics for the detection and/or diagnosis of the virus that causes COVID-19. This EUA will remain in effect for the duration of the COVID-19declaration justifying emergency of IVDs, unless it is terminated or revoked by the FDA (after which the test may no longer be used).Performed By: #### CVDTB ####[facility] Ggqnsarcjm[address] [place] [address]Mp. Charlee ChangER URINE PROFILEon 04-67-6014Feyhostwr Ql (U)NegativeNormalNEGATIVEMercy Health Fairfield Hospital Comment on above:Performed By: #### WILLIS MCCLURE ####[facility] Bdmtmzxejk9138[address] [place], [place] [id number]. Charlee ChangClarity (U) CLEARNormalCLEARMercy Health Fairfield HospitalComment on above:Performed By: #### WILLIS MCCLURE ####[facility] Rxnfpizckp178[address] [place], [place] [address]Dr. Charlee ChangColor (U)LT. YELLOWNormalYELLOWMercy Health Fairfield HospitalComment on above: Performed By: #### WILLIS MCCLURE ####[facility] Tzfvphsxsc75[address] [place], [place] [address]Dr. Charlee ChangEMARGIEAHDA micrscopic examination will be performed if indicated.NormalMercy Health Fairfield HospitalComment on above:Performed By: #### WILLIS MCCLURE ####[facility] Eqmioiwzbw[address] [place], [place] [address]Dr. Yilan ChangGlucose Ql (U)NegativeNormalNEGATIVEMercy Health Fairfield HospitalComment on above:Performed By: #### WILLIS MCCLURE ####[facility] Aiytuxfmux95[address] [place] [address]Dr. Yilan ChangHemoglobin Ql (U)SMALLAbnormalNEGATIVEMercy Health Fairfield HospitalComment on above:Performed By: #### ALEX MCCLURER ####[facility] Crvyyddbvf0175 [place] [address]Dr. Yilan ChangKetones Ql (U)15 mg/dlAbnormalNEGATIVEMercy Health [facility] Hospital Comment on above:Performed By: #### WILLIS MCCLURE ####[facility] Smyrzhxgfr4978 [address] Claudettelan ChangLEUKOCYTES NegativeNormalNEGATIVEMercy Health Fairfield HospitalComment on above:Performed By: #### WILLIS MCCLURE ####[facility] Capatikvqy68[address] [place] [address]Dr. Charlee ChangNitrite Ql (U)NegativeNormalNEGATIVEMercy Health Fairfield Hospital Comment on above:Performed By: #### WILLIS MCCLURE ####[facility] Anvrlppycg4850 [place] [address]Dr. Charlee ChangpH (U)6.5 [pH] Normal5-9The [facility] HospitalComment on above:Performed By: #### WILLIS MCCLURE ####[facility] Tsncwmifuy59[address] [place] [address]Dr. Yilan ChangSPEC GRAVITY1.924Vncbsf2.005-<=1.025The [facility] HospitalComment on above:Performed By: #### WILLIS MCCLURE ####[facility] Ckkznqylmn2922 [place] [address]Dr. Claudettelan ChangUA PROTEINNegativeNormalNEGATIVE/ TRACEThe St. [facility] HospitalComment on above:Performed By: #### WILLIS MCCLURE ####[facility] Yyxhxhmotl7[address] [place] [address]Dr. Charlee PearsonUR MICRO INDINDICATEDNormalThe St. [facility] HospitalComment on above: Performed By: #### WILLIS MCCLURE ####[facility] Qbwjfuzhza3945 [place] [address]Dr. Charlee PearsonUrobilinogen Qn (U)1.0 {Tye'U}/dL Normal0.2 - 1.0The [facility] HospitalComment on above:Performed By: #### WILLIS MCCLURE ####[facility] Rvdkuauvvl8[address] [place] [address]Dr. Charlee PearsonHEMOGLOBIN AND HEMATOCRITon 31-05-8580Xzfkrxchwm (Bld) [Volume fraction]32.0 %Critically low36.0-48.0The [facility] HospitalComment on above: Performed By: #### HGBHCT ####[facility] Jxxilswmld[address] [place], [place] [address]Dr. Claudetteclaudette MichelHemoglobin (Bld) [Mass/Vol]11.0 g/dL Critically low12.0-16.0The [facility] HospitalComment on above:Performed By: #### HGBHCT ####[facility] Ukdaqgtyyo117[address] [place], [place] [address]Dr. Charlee PearsonLIPASEon 54-38-4740Qneihk [Catalytic activity/Vol]62.0 U/L Critically low73.0-393.0The [facility] HospitalComment on above:Performed By: #### LIPA, CMP ####[facility] Ifoawbokuf99[address] [place], [place] [address]Dr. Charlee ChangPROF 14(COMP METB)on 28-01-5951Tqicgxb [Mass/Vol]3.0 g/dL Critically low3.4-5.0The [facility] HospitalComment on above:Performed By: #### LIPA, CMP ####[facility] Xzmxfslche5492 [place] [address]Dr. Claudetteclaudette MichelAlbumin/Globulin [Mass ratio]0.7 {ratio}NormalThe St. [facility] HospitalComment on above:Performed By: #### LIPA, CMP ####[facility] Skkxcvplqv55[address] [place] [address]Dr. Yilan ChangALP [Catalytic activity/Vol]104 U/QAbhmwt80-423Axh St[facility] HospitalComment on above:Performed By: #### LIPAstrid, CMP ####[facility] Awqjohqaoe8344 [place] [address]Dr. Yilan ChangALT [Catalytic activity/Vol]17 U/L Fvorkr20-67Zlw [facility] HospitalComment on above:Performed By: #### LIPA, CMP ####[facility] Jzjnncqasi8722 [place] [address]Dr. Yilan ChangAnion gap [Moles/Vol]10.3 mmol/LNormalThe St. [facility] HospitalComment on above:Performed By: #### LIPAstrid, CMP ####[facility] Pullfykkfd9[address] [place], [place] [address]Dr. Yilan ChangAST [Catalytic activity/Vol]17 U/L Dpwnxd83-55Iex [facility] HospitalComment on above:Performed By: #### LIPA, CMP ####[facility] Jmgmezadpo5067[address] [place], [place] [address]Dr. Yilan ChangBilirubin [Mass/Vol]0.7 mg/dLNormal0.2-1.0The [facility] Comment on above:Performed By: #### LIPA, CMP ####[facility] Mbsxknvlht01[address] [place], [place] [address]Dr. Yilan ChangCalcium [Mass/Vol]8.7 mg/dLNormal8.5-10.1The [facility] HospitalComment on above:Performed By: #### LIPA, CMP ####[facility] Igxdllrmnx3449 [place] [address]Dr. Yilan ChangChloride [Moles/Vol]87 mmol/LCritically icm67-753Xha [facility] HospitalComment on above:Performed By: #### LIPA, CMP ####[facility] Iwrmelsfxs8619 [place] [address]Dr. Yilan ChangCO2 [Moles/Vol]28.7 mmol/NCtkasm74.0-32.0The [facility] HospitalComment on above:Performed By: #### LIPA, CMP ####[facility] Ywnmijejuh50[address] [place], [place] [address]Dr. Yilan ChangCreatinine [Mass/Vol]0.45 mg/dL Critically low0.55-1.02The [facility] HospitalComment on above:Performed By: #### LIPA, CMP ####[facility] Iyldvoxxxu500[address] [place], [place] [address]Dr. Yilan ChangEGFR-AF KITTITIAN>60Normal>=60The [facility] HospitalComment on above:Performed By: #### LIPA, CMP ####[facility] Kwitbmsmhq0618[address] [place], [place] [address]Dr. Yilan ChangEGFR-NON AF KITTITIAN>60Normal>=[address] [facility] HospitalComment on above:Performed By: #### LIPA, CMP ####[facility] Ngnrpqcihl957[address] [place], [place] [address]Dr. Yilan Pearson Globulin (S) [Mass/Vol]4.3 g/dLNormalThe St. [facility] HospitalComment on above: Performed By: #### LIPA, CMP ####[facility] Gjyarimzyd847[address] [place], [place] [address]Dr. Yilan ChangGlucose [Mass/Vol]108 mg/dLCritically gfuu38-645Wob [facility] HospitalCompontiac general hospital on above:Performed By: #### LIPA, CMP ####[facility] Rwailcvijo055[address] [place], [place] [address]Dr. Yilan ChangPotassium [Moles/Vol]3.0 mmol/LCritically low3.5-5.1The [facility] HospitalComment on above:Performed By: #### LIPA, CMP ####[facility] Iskqthlret4700[address] [place], [place] [address]Dr. Yilan ChangProtein [Mass/Vol]7.3 g/dLNormal6.4-8.2The [facility] HospitalComment on above:Performed By: #### LIPA, CMP ####[facility] Rekscppkso738[address] [place], [place] [address]Dr. Yilan ChangSodium [Moles/Vol]124 mmol/LCritically dmh181-834Moq St[facility] HospitalComment on above:Result Comment: TEST REPEATED CRITICAL VALUE VERIFIEDPerformed By: #### LUDWIG, CMP ####[facility] Kbyumehuro34[address] [place] [address]Dr. Charlee ChangUrea nitrogen [Mass/Vol]5.0 mg/dLCritically low7.0-18.0The [facility] HospitalComment on above: Performed By: #### LUDWIG, CMP ####[facility] Xcwwvpprjr[address] [place], [place] [address]Dr. Charlee ChangUrea nitrogen/Creatinine [Mass ratio] 11.1 mg/mgNormalThe St. [facility] HospitalComment on above:Performed By: #### LUDWIG, CMP ####[facility] Oztlwxcjse6649[address] [place], [place] [address]Dr. Charlee PearsonPROF CHEM 8 (BAS METB)on 10-78-7114Rgzoq gap [Moles/Vol]9.5 mmol/L NormalThe St. [facility] HospitalComment on above:Performed By: #### BMP ####[facility] Mplmvjegeu6199[address] [place], [place] [address]Dr.Charlee Pearson Calcium [Mass/Vol]8.6 mg/dLNormal8.5-10.1The [facility] HospitalComment on above: Performed By: #### BMP ####[facility] Jfuiofbctl898[address] [place], [place] [address]Dr.Charlee ChangChloride [Moles/Vol]93 mmol/LCritically hqy41-069Fcb [facility] HospitalComment on above:Performed By: #### BMP ####[facility] Mmaugrieyk460[address] [place], [place] [address]Dr. Charlee ChangCO2 [Moles/Vol]26.8 mmol/NWvdqpa95.0-32.0The [facility] HospitalComment on above:Performed By: #### BMP ####[facility] Iaoobfclhi3617[address] [place], [place] [address]Dr.Charlee ChangCreatinine [Mass/Vol]0.51 mg/dL Critically low0.55-1.02The [facility] HospitalComment on above:Performed By: #### BMP ####[facility] Turtjlhqsy[address] [place] [address]Dr. Yilan ChangEGFR-AF KITTITIAN>60Normal>=60The [facility] HospitalComment on above: Performed By: #### BMP ####[facility] Cxlvhkncma0985 [place] [address]Dr.Yilan ChangEGFR-NON AF KITTITIAN>60Normal>=60The [facility] HospitalComment on above:Performed By: #### BMP ####[facility] Daswagcjhp[address] [place], [place] [address]Dr.Yilan ChangGlucose [Mass/Vol]86 mg/gRUlmmrs32-125Gro [facility] HospitalCompontiac general hospital on above:Performed By: #### BMP ####[facility] Xxrkewjipc12[address] [place], [place] [address]Dr.Yilan ChangPotassium [Moles/Vol]3.3 mmol/LCritically low3.5-5.1The [facility] HospitalComment on above:Performed By: #### BMP ####[facility] Wquzkpadik8065[address] [place], [place] [address]Dr.Yilan ChangSodium [Moles/Vol]126 mmol/LCritically seh771-177Odp [facility] on above: Performed By: #### BMP ####[facility] Leexpstoob365[address] [place], [place] [address]Dr.Yilan ChangUrea nitrogen [Mass/Vol]3.0 mg/dL Critically low7.0-18.0The [facility] HospitalComment on above:Performed By: #### BMP ####[facility] Tyuxcwyugf505[address] [place], [place] [address]Dr. Yilan ChangUrea nitrogen/Creatinine [Mass ratio]5.9 mg/mgNormalThe St. [facility] HospitalCompontiac general hospital on above:Performed By: #### BMP ####[facility] Fqssaniksp0734[address] [place], [place] [address]Dr.Yilan ChangSODIUM RANDOM URINEon 20-68-4152Umteye (U) [Moles/Vol]34 mmol/GHumgxv85-73Zqx [facility] HospitalComment on above:Performed By: #### ROBERTA DU ####[facility] Csqrbgqtxq80[address] [place] [address]Dr. Charlee PearsonTSHon 98-86-4576IZY8.719 uIU/mLCritically high0.358-3.740The [facility] HospitalComment on above:Performed By: #### TSH ####[facility] Yatepvembn12[address] [place] [address]Dr.Charlee PearsonURINE MICROSCOPIC ONLYon 04-15-[address]Ab[address]The [address] Charles HospitalComment on above:Performed By: #### ALEX MCCLURER ####[facility] Gfsmfxflyr5[address] [place] [address]Dr. Charlee ChangBacteria identified Cx Nom (U)NOT INDICATEDNormalThe St. [facility] HospitalComment on above:Performed By: #### ALEX MCCLURER ####[facility] Kpuadavfpa7930 [place] [address]Dr. Charlee ChangCASTNONE SEENNormalNONE SEENThe St. [facility] HospitalComment on above: Performed By: #### ALEX MCCLURER ####[facility] Qyvqmmtlig[address] [place], [place] [address]Dr. Charlee ChangCrystals LM Nom (Urine sed)NONE SEEN NormalNONE SEENThe St. [facility] HospitalComment on above:Performed By: #### ALEX MCCLURER ####[facility] Afanekmjsk9154 [place] [address]Dr. Charlee ChangEpithelial cells LM Ql (Urine sed)FEWAbnormalNONE SEEN /RAREThe St. [facility] HospitalComment on above:Performed By: #### ALEX MCCLURER ####[facility] Yhowtzenmh0404 [place] [address]Dr. Charlee ChangMUCOUS NONE SEENNormalNONE SEENThe St. [facility] HospitalComment on above:Performed By: #### ALEX MCCLURER ####[facility] Lsadnujeyp3159 [place], [place]Dr. Yilan JwpfdCEY5-7Xjvsihzr5-1Fwj [facility] HospitalComment on above: Performed By: #### WILLIS MCCLURE ####[facility] Rolnamgwkp3520 [place], [place]Dr. Yilan ChangWBCNONE SEENNormalNONE SEENThe St. [facility] HospitalComment on above:Performed By: #### WILLIS MCCLURE ####[facility] Zhhioijgir[address] [place], [place] [address]Dr. Yilan ChangXR ABD FLAT UP_PA Lorrie 73-08-7378SB ABD FLAT UP_PA CHNormalThOhioHealth Pickerington Methodist HospitalCBC AUTO DIFFon 97-60-7294HGYF #0.0 103/ulNormal0.0-0.1The [facility] HospitalComment on above:Performed By: #### CBC ####[facility] Gnzpxnhufz65[address] [place], [place] [address]Dr.Claudettelan ChangBasophils/100 WBC (Bld)0.1 %Critically low0.2-2.0The [facility] HospitalComment on above:Performed By: #### CBC ####[facility] Etispzizfz784[address] [place], [place] [address]Dr. Yilan ChangEO #0.0 103/ulNormal0.0-0.7The [facility] HospitalComment on above: Performed By: #### CBC ####[facility] Ucjeewshmm197[address] [place], [place] [address]Dr.Claudettelan ChangEosinophils/100 WBC (Bld)0.2 %Critically low0.9-7.0The [facility] HospitalComment on above:Performed By: #### CBC ####[facility] Upuqgwstoz968[address] [place], [place] [address]Dr. Claudettelan ChangErythrocyte distribution width (RBC) [Ratio]12.7 %Eshyuq38.0-15.0The [facility] HospitalComment on above:Performed By: #### CBC ####[facility] Xrorgttsfk907[address] [place], [place] [address]Dr.Charlee PearsonHematocrit (Bld) [Volume fraction]30.7 %Critically low36.0-48.0The [facility] HospitalComment on above:Performed By: #### CBC ####[facility] Bmebunsdjs4511 [place] [address]Dr.Charlee PearsonHemoglobin (Bld) [Mass/Vol]10.4 g/dL Critically low12.0-16.0The [facility] HospitalComment on above:Performed By: #### CBC ####[facility] Dcdbrjoded9911 [place] [address]Dr. Charlee ChangIG #0.12 10e3/ulCritically high0.00-0.03The [facility] HospitalComment on above:Performed By: #### CBC ####[facility] Bmdyimfkjs20[address] [place], [place] [address]Dr.Charlee ChangIG %0.9 %Critically high0.0-0.5The [facility] HospitalComment on above:Performed By: #### CBC ####[facility] Roeakevmyh5099[address] [place], [place] [address]Dr.Charlee PearsonLYMPH #1.6 103/ulNormal1.2-3.8The [facility] HospitalComment on above:Performed By: #### CBC ####[facility] Mrxyxmlchx4523[address] [place], [place] [address]Dr. Charlee PearsonLymphocytes/100 WBC (Bld)11.8 %Critically low20.5-60.0The [facility] HospitalComment on above:Performed By: #### CBC ####[facility] Byuhiuvdez97[address] [place], [place] [address]Dr.Charlee PearsonMANUAL DIFF REQ NONormalThe St. [facility] HospitalComment on above:Performed By: #### CBC ####[facility] Vrvijcdkay586[address] [place], [place] [address]Dr. Charlee MichelMCH (RBC) [Entitic mass]31.2 psVbudic45.7-34.0The [facility] Comment on above:Performed By: #### CBC ####[facility] Epuwvjuojj9463 [place] [address]Dr.Charlee MichelMCHC (RBC) [Mass/Vol]33.9 g/dL Wsoegl54.9-35.2The [facility] HospitalComment on above:Performed By: #### CBC ####[facility] Mysfruwsov125[address] [place], [place] [address]Dr. Claudetteclaudette PearsonMCV (RBC) [Entitic vol]92.2 qTYubrdd88.0-99.0The [facility] Comment on above:Performed By: #### CBC ####[facility] Oveiodpenq285[address] [place], [place] [address]Dr.Claudetteclaudette PearsonMONO #1.2 103/ulCritically high0.3-0.8The [facility] HospitalComment on above:Performed By: #### CBC ####[facility] Ixorqqrzaw1023[address] [place], [place] [address]Dr. Charlee PearsonMonocytes/100 WBC (Bld)8.4 %Normal1.7-12.0[facility] Comment on above:Performed By: #### CBC ####[facility] Bpgqleuiao924[address] [place], [place] [address]Dr.Charlee PearsonNEUT #10.8 103/ulCritically high1.4-6.5The [facility] HospitalComment on above:Performed By: #### CBC ####[facility] Swlefulteh063[address] [place], [place] [address]Dr. Charlee PearsonNeutrophils/100 WBC (Bld)78.6 %Critically high43.0-75.0The [facility] HospitalComment on above:Performed By: #### CBC ####[facility] Krovkyuzbw387[address] [place], [place] [address]Dr.Claudetteclaudette PearsonPlatelet mean volume (Bld) [Entitic vol]9.4 fLCritically low9.5-13.5ThOhioHealth Pickerington Methodist Hospital Comment on above:Performed By: #### CBC ####[facility] Wggjxsfzui120[address] [place], [place] [address]Dr.Charlee JujewVND281 103/ntTkhmnd449-789Nbe [facility] HospitalComment on above:Performed By: #### CBC ####[facility] Rbsirdcjji7508 [place] [address]Dr.Charlee ChangRBC3.33 106/ul Critically low4.20-5.40The [facility] HospitalComment on above:Performed By: #### CBC ####[facility] Lnsotrexfe1074 [place] [address]Dr. Charlee KqhemLUN67.7 103/ulCritically high4.0-11.0The [facility] HospitalComment on above:Performed By: #### CBC ####[facility] Tapvuobalo[address] [place], [place] [address]Dr.Claudettelan ChangPROF 14(COMP METB)on 26-21-1810Hgfinui [Mass/Vol]2.4 g/dLCritically low3.4-5.0The [facility] HospitalComment on above: Performed By: #### CMP ####[facility] Zmitmsgwpt6618[address] [place], [place] [address]Dr.Charlee ChangAlbumin/Globulin [Mass ratio]0.8 {ratio} NormalThe St. Charles HospitalComment on above:Performed By: #### CMP ####[facility] Wwszyvkece[address] [place], [place] [address]Dr.Charlee ChangALP [Catalytic activity/Vol]62 U/JBdfmrj80-671Nhl [facility] HospitalComment on above: Performed By: #### CMP ####[facility] Nrwsnnvklr543[address] [place], [place] [address]Dr.Charlee ChangALT [Catalytic activity/Vol]46 U/LNormal 14-59The [facility] HospitalComment on above:Performed By: #### CMP ####[facility] Nzjltuxeww030[address] [place], [place] [address]Dr.Charlee PearsonAnion gap [Moles/Vol]8.0 mmol/LNormalThe St. [facility] HospitalComment on above:Performed By: #### CMP ####[facility] Jdvtmkxgco0[address] [place], [place] [address]Dr.Charlee ChangAST [Catalytic activity/Vol]14 U/LCritically xrs90-45Spt [facility] HospitalComment on above:Performed By: #### CMP ####[facility] Fuhzomoquz67[address] [place], [place] [address]Dr.Yilan ChangBilirubin [Mass/Vol]0.4 mg/dLNormal0.2-1.0The [facility] HospitalComment on above:Performed By: #### CMP ####[facility] Slyyremdyw398[address] [place], [place] [address]Dr.Yilan ChangCalcium [Mass/Vol]8.4 mg/dLCritically low8.5-10.1The [facility] HospitalComment on above:Performed By: #### CMP ####[facility] Byduyktrgc9475[address] [place], [place] [address]Dr.Yilan ChangChloride [Moles/Vol]99 mmol/EPcpssl77-243Hmy [facility] HospitalComment on above:Performed By: #### CMP ####[facility] Xpxeebbfpa4890[address] [place], [place] [address]Dr.Yilan ChangCO2 [Moles/Vol]30.9 mmol/OFezykr45.0-32.0The [facility] HospitalComment on above:Performed By: #### CMP ####[facility] Qaosbhcyxq94[address] [place], [place] [address]Dr.Yilan ChangCreatinine [Mass/Vol]0.43 mg/dLCritically low0.55-1.02The [facility] HospitalCompontiac general hospital on above:Performed By: #### CMP ####[facility] Jvnkmviedt[address] [place], [place] [address]Dr.Yilan ChangEGFR-AF KITTITIAN>60Normal>=60The [facility]. Charles HospitalComment on above:Performed By: #### CMP ####[facility] Ekitczjgwu27[address] [place], [place] [address]Dr.Yilan ChangEGFR-NON AF KITTITIAN>60Normal>=60The [facility] HospitalCompontiac [facility] hospital on above:Performed By: #### CMP ####[facility] Zwdvcxpzxn37037[address] [place], [place] [address]Dr. Yilan ChangGlobulin (S) [Mass/Vol]3.0 g/dLNormalThe Primo HospitalComment on above:Performed By: #### CMP ####[facility] Ysfzaefefy250[address] [place], [place] [address]Dr.Charlee PearsonGlucose [Mass/Vol]82 mg/eMGhnxcj83-[address] [facility] HospitalComment on above:Performed By: #### CMP ####[facility] Wnkhcoclbv25[address] [place], [place] [address]Dr.Charlee Pearson Potassium [Moles/Vol]3.9 mmol/LNormal3.5-5.1The [facility] HospitalComment on above:Performed By: #### CMP ####[facility] Zvomwgmwth1920[address] [place], [place] [address]Dr.Charlee PearsonProtein [Mass/Vol]5.4 g/dLCritically low 6.4-8.2The [facility] HospitalComment on above:Performed By: #### CMP ####[facility] Srquyzlkqj6600[address] [place], [place] [address]Dr.Charlee Pearson Sodium [Moles/Vol]134 mmol/LCritically jbr643-297Ava St. Charles HospitalComment on above:Performed By: #### CMP ####[facility] Xozvirsxrz6860[address] [place], [place] [address]Dr.Charlee ChangUrea nitrogen [Mass/Vol]11.0 mg/dLNormal 7.0-18.0The [facility] HospitalCompontiac [facility] hospital on above:Performed By: #### CMP ####[facility] Liwetyglnx533[address] [place], [place] [address]Dr. Charlee ChangUrea nitrogen/Creatinine [Mass ratio]25.6 mg/mgNoProtestant Deaconess HospitalComment on above:Performed By: #### CMP ####[facility] Sxhmcbcffl60[address] [place], [place] [address]Dr.Charlee PearsonCBC AUTO DIFFon [id number] #0.0 103/ulNormal0.0-0.1The [facility] on above: Performed By: #### CBC ####[facility] Xyealveyba737[address] [place], [place] [address]Dr.Yilan ChangBasophils/100 WBC (Bld)0.2 %Normal 0.2-2.0The [facility] HospitalComment on above:Performed By: #### CBC ####[facility] Mrcwzlyrry[address] [place] [address]Dr.Yilan ChangEO # 0.0 103/ulNormal0.0-0.7The [facility] HospitalComment on above:Performed By: #### CBC ####[facility] Ozymkljeia5350[address] [place], [place] [address]Dr. Yilan ChangEosinophils/100 WBC (Bld)0.1 %Critically low0.9-7.0The [facility] Charles HospitalComment on above:Performed By: #### CBC ####[facility] Mjczfjlhmy117[address] [place], [place] [address]Dr.Yilan ChangErythrocyte distribution width (RBC) [Ratio]13.1 %Vpobvf28.0-15.0The [facility] Comment on above:Performed By: #### CBC ####[facility] Enorqmovhj487[address] [place], [place] [address]Dr.Claudettelan ChangHematocrit (Bld) [Volume fraction]29.3 %Critically low36.0-48.0The [facility] HospitalComment on above: Performed By: #### CBC ####[facility] Lbweophuka[address] [place], [place] [address]Dr.Claudettelan ChangHemoglobin (Bld) [Mass/Vol]10.0 g/dL Critically low12.0-16.0The [facility] HospitalComment on above:Performed By: #### CBC ####[facility] Pcptfoedrj7825[address] [place], [place] [address]Dr. Yilan ChangIG #0.23 10e3/ulCritically high0.00-0.03The [facility] HospitalComment on above:Performed By: #### CBC ####[facility] Wwjhikaiod129[address] [place], [place] [address]Dr.Yilan ChangIG %1.2 %Critically high0.0-0.5The [facility] HospitalComment on above:Performed By: #### CBC ####[facility] Rikfghwhms[address] [place] [address]Dr.Charlee PearsonLYMPH #1.3 103/ulNormal1.2-3.8The [facility] HospitalComment on above:Performed By: #### CBC ####[facility] Afcssdlkqu[address] [place] [address]Dr. Charlee PearsonLymphocytes/100 WBC (Bld)7.0 %Critically low20.5-60.0The [facility] HospitalComment on above:Performed By: #### CBC ####[facility] Sqhlxzzgcr[address] [place] [address]Dr.Charlee PearsonMANUAL DIFF REQ NONormalThe St. Charles HospitalComment on above:Performed By: #### CBC ####[facility] Wiruwnasvf4060[address] [place], [place] [address]Dr. Charlee PearsonH (RBC) [Entitic mass]31.8 apVzlvcm42.7-34.0The [facility] Comment on above:Performed By: #### CBC ####[facility] Uehgyuelhz1637[address] [place], [place] [address]Dr.Charlee PearsonMCHC (RBC) [Mass/Vol]34.1 g/dL Kpojlb71.9-35.2The [facility] HospitalComment on above:Performed By: #### CBC ####[facility] Uzuwdssagb109[address] [place], [place] [address]Dr. Charlee PearsonMCV (RBC) [Entitic vol]93.3 aOCfowmk64.0-99.0The [facility] Comment on above:Performed By: #### CBC ####[facility] Dekawgnteq[address] [place] [address]Dr.Charlee PearsonMONO #1.2 103/ulCritically high0.3-0.8The [facility] HospitalComment on above:Performed By: #### CBC ####[facility] Beyqzoukim349[address] [place], [place] [address]Dr. Charlee ChangMonocytes/100 WBC (Bld)6.1 %Normal1.7-12.0The [facility] Comment on above:Performed By: #### CBC ####[facility] Jpayeurgqe[address] [place] [address]Dr.Charlee PearsonNEUT #16.2 103/ulCritically high1.4-6.5The [facility] HospitalComment on above:Performed By: #### CBC ####[facility] Xrxqvtdaku6550 [place] [address]Dr. Charlee MichelNeutrophils/100 WBC (Bld)85.4 %Critically high43.0-75.0The [facility] HospitalComment on above:Performed By: #### CBC ####[facility] Zrlirhngft060[address] [place] [address]Dr.Claudetteclaudette MichelPlatelet mean volume (Bld) [Entitic vol]9.2 fLCritically low9.5-13.5The [facility] Comment on above:Performed By: #### CBC ####[facility] Umxbnuhdfp6750[address] [place], [place] [address]Dr.Charlee UfuadWIO553 103/xuJqtxvm429-276Pbv St. Charles HospitalComment on above:Performed By: #### CBC ####[facility] Uwgzrcahqv7232[address] [place], [place] [address]Dr.Claudetteclaudette ChangRBC3.14 106/ul Critically low4.20-5.40The [facility] HospitalComment on above:Performed By: #### CBC ####[facility] Nchtqlcqjn7477[address] [place], [place] [address]Dr. Claudetteclaudette PearsonUfkfvWTE27.9 103/ulCritically high4.0-11.0The [facility] HospitalComment on above:Performed By: #### CBC ####[facility] Ttqodicxmz7329[address] [place], [place] [address]Dr.Charlee PearsonHEPATITIS PANEL, ACUTEon [id number] ScreenNegativeNormalNegativeThe St. Charles HospitalComment on above:Performed By: #### HEPACUT ####[facility] Jehgowdtut8049[address] [place], [place] [address]Dr. Charlee PearsonHCV AB0.1 s/co ratioNormal0.0-0.9The [facility] Comment on above:Performed By: #### HEPACUT ####[facility] Rkuxshsowi[address] [place] [address]Dr. Yilan MichelHep A Ab, IgMNegativeNormal NegativeThe St. Charles HospitalComment on above:Performed By: #### HEPACUT ####[facility] Xigxvpikep593[address] [place], [place] [address]Dr. Claudettelan MichelHep B Core Ab, IgMNegativeNormalNegativeThe [facility] HospitalComment on above:Performed By: #### HEPACUT ####[facility] Rzfzecrtqy108[address] [place], [place] [address]Dr. Charlee PearsonInterpretation:CommentNormalThe St. Charles HospitalComment on above:Result Comment: NegativeNot infected with HCV, unless recent infection is suspected or otherevidence exists to indicate HCV infection.Performed By: #### HEPACUT ####[facility] Wiqltbarsq0009[address] [place], [place] [address]Dr. Claudettelan ChangPROF 14(COMP METB)on 03-29-2022 Albumin [Mass/Vol]2.2 g/dLCritically low3.4-5.0The [facility] HospitalComment on above:Performed By: #### CMP ####[facility] Ashzhbilqo1333[address] [place], [place] [address]Dr.Charlee ChangAlbumin/Globulin [Mass ratio]0.8 {ratio} NormalThe St. Charles HospitalComment on above:Performed By: #### CMP ####[facility] Vhphdbdzst6650[address] [place], [place] [address]Dr.Yilan ChangALP [Catalytic activity/Vol]55 U/NRykghd10-684Aop St. Charles HospitalComment on above: Performed By: #### CMP ####[facility] Medsmofwhv318[address] [place], [place] [address]Dr.Yilan ChangALT [Catalytic activity/Vol]49 U/LNormal 14-59The [facility] HospitalComment on above:Performed By: #### CMP ####[facility] Nmjhjnnquy945[address] [place], [place] [address]Dr.Yilan ChangAnion gap [Moles/Vol]7.0 mmol/LNormalThe St. [facility] HospitalComment on above:Performed By: #### CMP ####[facility] Rmgdzxgpja5864[address] [place], [place] [address]Dr.Yilan ChangAST [Catalytic activity/Vol]13 U/LCritically fep67-56Twc St. [facility] HospitalComment on above:Performed By: #### CMP ####[facility] Sltkdcukfi235[address] [place], [place] [address]Dr.Yilan ChangBilirubin [Mass/Vol]0.4 mg/dLNormal0.2-1.0The [facility] HospitalComment on above:Performed By: #### CMP ####[facility] Abwcpqdgog915[address] [place], [place] [address]Dr.Yilan ChangCalcium [Mass/Vol]8.3 mg/dLCritically low8.5-10.1The [facility] HospitalComment on above:Performed By: #### CMP ####[facility] Fhwyjvmeav0980[address] [place], [place] [address]Dr.Yilan ChangChloride [Moles/Vol]100 mmol/YHoexlu25-487Muq St[facility] HospitalComment on above:Performed By: #### CMP ####[facility] Teqdwrrajf325[address] [place], [place] [address]Dr.Yilan ChangCO2 [Moles/Vol]31.5 mmol/BIidcph28.0-32.0The [facility] HospitalComment on above:Performed By: #### CMP ####[facility] Filzmpkirn316[address] [place], [place] [address]Dr.Yilan ChangCreatinine [Mass/Vol]0.48 mg/dLCritically low0.55-1.02The [facility] HospitalComment on above:Performed By: #### CMP ####[facility] Fkbzmmhjee1509[address] [place], [place] [address]Dr.Yilan ChangEGFR-AF KITTITIAN>60Normal>=60The [facility] HospitalComment on above:Performed By: #### CMP ####[facility] Yghjerupuw677[address] [place], [place] [address]Dr.Yilan ChangEGFR-NON AF KITTITIAN>60Normal>=60The [facility] HospitalComment on above:Performed By: #### CMP ####[facility] Snizkissai939[address] [place], [place] [address]Dr. Charlee PearsonGlobulin (S) [Mass/Vol]2.8 g/dLNormalThOhioHealth Pickerington Methodist HospitalComment on above:Performed By: #### CMP ####[facility] Tgfiazpiyn1879[address] [place], [place] [address]Dr.Charlee PearsonGlucose [Mass/Vol]84 mg/xUJciwfj63-[address] [facility] HospitalComment on above:Performed By: #### CMP ####[facility] Izagsgaame0669[address] [place], [place] [address]Dr.Charlee Pearson Potassium [Moles/Vol]3.5 mmol/LNormal3.5-5.1The [facility] HospitalComment on above:Performed By: #### CMP ####[facility] Niosfxwtrd175[address] [place], [place] [address]Dr.Charlee PearsonProtein [Mass/Vol]5.0 g/dLCritically low 6.4-8.2The [facility] HospitalComment on above:Performed By: #### CMP ####[facility] Fpfwcgcqox969[address] [place], [place] [address]Dr.Charlee Pearson Sodium [Moles/Vol]135 mmol/LCritically zof343-364Wds St[facility] HospitalComment on above:Performed By: #### CMP ####[facility] Fhzbjglmdt678[address] [place], [place] [address]Dr.Charlee ChangUrea nitrogen [Mass/Vol]14.0 mg/dLNormal 7.0-18.0The [facility] HospitalComment on above:Performed By: #### CMP ####[facility] Xjnoggxodr229[address] [place], [place] [address]Dr. Charlee PearsonUrea nitrogen/Creatinine [Mass ratio]29.2 mg/mgNormalThe St. [facility] HospitalComment on above:Performed By: #### CMP ####[facility] Xxwtoidour1067[address] [place], [place] [address]Dr.Charlee PearsonCBC AUTO DIFFon [id number] #0.0 103/ulNormal0.0-0.1The [facility] HospitalComment on above: Performed By: #### CBC ####[facility] Fayzsipzqk377[address] [place], [place] [address]Dr.Charlee ChangBasophils/100 WBC (Bld)0.1 %Critically low0.2-2.0The [facility] HospitalComment on above:Performed By: #### CBC ####[facility] Ixgkcvtufe816[address] [place], [place] [address]Dr. Claudettelan ChangEO #0.0 103/ulNormal0.0-0.7The [facility] HospitalComment on above: Performed By: #### CBC ####[facility] Ydcbvecfla389[address] [place], [place] [address]Dr.Charlee ChangEosinophils/100 WBC (Bld)0.1 %Critically low0.9-7.0The [facility] HospitalComment on above:Performed By: #### CBC ####[facility] Rylbmjqinh208[address] [place], [place] [address]Dr. Charlee ChangErythrocyte distribution width (RBC) [Ratio]13.0 %Zejeex81.0-15.0The [facility] HospitalCompontiac general hospital on above:Performed By: #### CBC ####[facility] Htopdkwnrb409[address] [place], [place] [address]Dr.Charlee ChangHematocrit (Bld) [Volume fraction]29.2 %Critically low36.0-48.0The [facility] HospitalComment on above:Performed By: #### CBC ####[facility] Wzevsdgbkp013[address] [place], [place] [address]Dr.Charlee ChangHemoglobin (Bld) [Mass/Vol]9.9 g/dL Critically low12.0-16.0The [facility] HospitalComment on above:Performed By: #### CBC ####[facility] Prtskogjpw62[address] [place], [place] [address]Dr. Charlee ChangIG #0.36 10e3/ulCritically high0.00-0.03The [facility] HospitalComment on above:Performed By: #### CBC ####[facility] Xmfbncjvrl26[address] [place] [address]Dr.Charlee PearsonIG %1.9 %Critically high0.0-0.5The [facility] HospitalComment on above:Performed By: #### CBC ####[facility] Hvktonsvsn64[address] [place] [address]Dr.Charlee MichelST. JOSEPH'S MEDICAL CENTERH #1.3 103/ulNormal1.2-3.8The [facility] HospitalComment on above:Performed By: #### CBC ####[facility] Esbihbawvh14[address] [place] [address]Dr. Charlee PearsonHealthalliance Hospital: Broadway Campushocytes/100 WBC (Bld)6.4 %Critically low20.5-60.0The [facility] HospitalComment on above:Performed By: #### CBC ####[facility] Yxiqitbtxa819[address] [place], [place] [address]Dr.Charlee PearsonMERCY [facility] DIFF REQ NONormalThe St. [facility] HospitalComment on above:Performed By: #### CBC ####[facility] Enzxmrqkzx9640[address] [place], [place] [address]Dr. Charlee MichelST. CLARE'[facility] (RBC) [Entitic mass]31.6 beGbxkyo78.7-34.0[facility] Comment on above:Performed By: #### CBC ####[facility] Rmerdqlxff7722[address] [place], [place] [address]Dr.Charlee MichelMADISON AVENUE [facility] (RBC) [Mass/Vol]33.9 g/dL Qwdmqc32.9-35.2[facility] HospitalComment on above:Performed By: #### CBC ####[facility] Vtnidvznfv8085[address] [place], [place] [address]DrOttoniel Claudetteclaudette PearsonV (RBC) [Entitic vol]93.3 dITwebzs83.0-99.0The [facility] Comment on above:Performed By: #### CBC ####[facility] Cltaufiwxr4760[address] [place], [place] [address]Dr.Charlee LeeO #1.3 103/ulCritically high0.3-0.8The [facility] HospitalComment on above:Performed By: #### CBC ####[facility] Vabmikpodo[address] [place] [address]Dr. Charlee ChangMonocytes/100 WBC (Bld)6.7 %Normal1.7-12.0[facility] Comment on above:Performed By: #### CBC ####[facility] Rergkapeeg[address] [place] [address]Dr.Charlee ChangNEUT #16.5 103/ulCritically high1.4-6.5The [facility] HospitalComment on above:Performed By: #### CBC ####[facility] Aksdxuazio0745[address] [place], [place] [address]Dr. Charlee ChangNeutrophils/100 WBC (Bld)84.8 %Critically high43.0-75.0The [facility] HospitalComment on above:Performed By: #### CBC ####[facility] Vjcfmtkmjv287[address] [place], [place] [address]Dr.Charlee PearsonPlatelet mean volume (Bld) [Entitic vol]9.1 fLCritically low9.5-13.5The [facility] Comment on above:Performed By: #### CBC ####[facility] Epyddhbkdi417[address] [place], [place] [address]Dr.Charlee SfjztNDG053 103/ntGnervg988-848Uor St[facility] HospitalComment on above:Performed By: #### CBC ####[facility] Oijwuictbc44[address] [place], [place] [address]Dr.Charlee ChangRBC3.13 106/ul Critically low4.20-5.40The [facility] HospitalComment on above:Performed By: #### CBC ####[facility] Svfqompvbd354[address] [place], [place] [address]Dr. Claudettelan LxxjyFXQ84.4 103/ulCritically high4.0-11.0The [facility] HospitalComment on above:Performed By: #### CBC ####[facility] Kihsrrjiaj9811[address] [place], [place] [address]Dr.Charlee ChangPROF 14(COMP METB)on [id number] [Mass/Vol]2.2 g/dLCritically low3.4-5.0The [facility] HospitalComment on above: Performed By: #### CMP ####[facility] Ooobhdutti454[address] [place], [place] [address]Dr.Charlee ChangAlbumin/Globulin [Mass ratio]0.8 {ratio} NormalThe St. Charles HospitalComment on above:Performed By: #### CMP ####[facility] Cuxgrquxgi266[address] [place], [place] [address]Dr.Charlee ChangALP [Catalytic activity/Vol]56 U/BPqyrwl12-565Ece St[facility] HospitalComment on above: Performed By: #### CMP ####[facility] Zbrclfvpvl500[address] [place], [place] [address]Dr.Charlee ChangALT [Catalytic activity/Vol]61 U/L Critically gihn47-45Vrq [facility] HospitalComment on above:Performed By: #### CMP ####[facility] Svkjegcsyl344[address] [place], [place] [address]Dr. Charlee ChangAnion gap [Moles/Vol]7.9 mmol/LNormalThe St. [facility] HospitalComment on above:Performed By: #### CMP ####[facility] Gounjgoxgr187[address] [place], [place] [address]Dr.Charlee ChangAST [Catalytic activity/Vol]15 U/LNormal 15-37The [facility] HospitalComment on above:Performed By: #### CMP ####[facility] Hecdqaulrp104[address] [place], [place] [address]Dr.Charlee Pearson Bilirubin [Mass/Vol]0.4 mg/dLNormal0.2-1.0The [facility] HospitalComment on above: Performed By: #### CMP ####[facility] Xbmhyytjrp453[address] [place], [place] [address]Dr.Charlee ChangCalcium [Mass/Vol]8.3 mg/dLCritically low8.5-10.1The [facility] HospitalComment on above:Performed By: #### CMP ####[facility] Mtfxjujhjt0477[address] [place], [place] [address]Dr. Yilan ChangChloride [Moles/Vol]99 mmol/NXivetq89-002Rqa [facility] HospitalComment on above:Performed By: #### CMP ####[facility] Kdxtzuyidb209[address] [place], [place] [address]Dr.Yilan ChangCO2 [Moles/Vol]31.9 mmol/LNormal 21.0-32.0The [facility] HospitalComment on above:Performed By: #### CMP ####[facility] Phyvjgfriu588[address] [place], [place] [address]Dr. Yilan ChangCreatinine [Mass/Vol]0.48 mg/dLCritically low0.55-1.02The [facility] HospitalComment on above:Performed By: #### CMP ####[facility] Adtsoxxdtf818[address] [place], [place] [address]Dr.Yilan ChangEGFR-AF KITTITIAN>60Normal>=60The [facility] HospitalComment on above:Performed By: #### CMP ####[facility] Aubyatniqc1390[address] [place], [place] [address]Dr. Yilan ChangEGFR-NON AF KITTITIAN>60Normal>=60The [facility] HospitalComment on above:Performed By: #### CMP ####[facility] Arnpwtrcye1995[address] [place], [place] [address]Dr.Yilan ChangGlobulin (S) [Mass/Vol]2.9 g/dLNormalThe St. [facility] HospitalComment on above:Performed By: #### CMP ####[facility] Oavjanzdpi9467[address] [place], [place] [address]Dr.Yilan ChangGlucose [Mass/Vol]85 mg/xZAlvmqx66-823Fet St[facility] HospitalComment on above:Performed By: #### CMP ####[facility] Hrgjudbesb4638[address] [place], [place] [address]Dr.Yilan ChangPotassium [Moles/Vol]3.8 mmol/LNormal3.5-5.1The [facility] HospitalComment on above:Performed By: #### CMP ####[facility] Hiiqtxulsd2635[address] [place], [place] [address]Dr.Yilan ChangProtein [Mass/Vol]5.1 g/dLCritically low6.4-8.2The [facility] HospitalComment on above: Performed By: #### CMP ####[facility] Mxgemazfbd737[address] [place], [place] [address]Dr.Yiclaudette ChangSodium [Moles/Vol]135 mmol/LCritically sow756-770Lew [facility]. [facility] HospitalComment on above:Performed By: #### CMP ####[facility] Pfdmqghync62[address] [place], [place] [address]Dr. Yilan ChangUrea nitrogen [Mass/Vol]15.0 mg/dLNormal7.0-18.0The [facility] Comment on above:Performed By: #### CMP ####[facility] Bnguugeiqa9911[address] [place], [place] [address]Dr.Yilan ChangUrea nitrogen/Creatinine [Mass ratio]31.2 mg/mgNormalThe St. [facility] HospitalComment on above:Performed By: #### CMP ####[facility] Hjanudrwlf0199[address] [place], [place] [address]Dr. Claudettelan ChangXR CHEST 2 Von [id number] CHEST 2 VNormalSamaritan Hospital W MANUAL DIFFon [id number] LYMPH #NormalMercy Health Fairfield HospitalCompontiac general hospital on above:Performed By: #### CBCMAN ####[facility] Semqdeilfu2695[address] [place], [place] [address]Dr. Yilan ChangATYPICAL LYMPH %NormalThe St. [facility] HospitalComment on above:Performed By: #### CBCMAN ####[facility] Cecawixxsn125[address] [place], [place] [address]Dr. Yilan ChangBAND #0.0 103/ulNormal0.0-0.3The [facility] HospitalComment on above:Performed By: #### CBCMAN ####[facility] Ykobwhrcwa4215[address] [place], [place] [address]Dr. Yilan ChangBAND %0 %Normal0-5The [facility] HospitalComment on above: Performed By: #### CBCMAN ####[facility] Xhojhiubvv1204[address] [place], [place] [address]Dr. Yilan ChangBASOM #0.00 103/ulNormal0.00-0.10The [facility] HospitalComment on above:Performed By: #### CBCMAN ####[facility] Mkxuxbvsbl[address] [place] [address]Dr. Yilan ChangBASOM %0.0 %Critically low0.2-2.0The [facility] HospitalComment on above:Performed By: #### CBCMAN ####[facility] Tghsrhsfzq95[address] [place] [address]Dr. Yilan ChangBLAST #NormalThe [facility] HospitalComment on above:Performed By: #### CBCMAN ####[facility] Zmkhajnorf184[address] [place], [place] [address]Dr. Yilan ChangBLAST %NormalThe [facility] HospitalComment on above: Performed By: #### CBCMAN ####[facility] Dnxyouwpug345[address] [place], [place] [address]Dr. Yilan ChangCORRECTED WBCNormal4.0-11.0The [facility] HospitalComment on above:Performed By: #### CBCMAN ####[facility] Kkmzyzenkl55[address] [place], [place] [address]Dr. Yilan ChangEOS #0.00 103/ulNormal0.00-0.70The [facility] HospitalComment on above:Performed By: #### CBCMAN ####[facility] Gvpqiwywei595[address] [place], [place] [address]Dr. Yilan ChangEOS%0.0 %Critically low0.9-7.0The [facility] HospitalComment on above:Performed By: #### CBCMAN ####[facility] Ydttaczvcz06[address] [place], [place] [address]Dr. Yilan PyzhsTZS96.0 %Critically low36.0-48.0 The [facility] HospitalComment on above:Performed By: #### CBCMAN ####[facility] Ovfhcayhro299[address] [place], [place] [address]Dr. Yilan ChangHGB 11.0 g/dlCritically low12.0-16.0The [facility] HospitalComment on above:Performed By: #### CBCJARON ####[facility] Q[address]ntjtluk[address] [place] [address]Dr. Charlee PearsonLYMPHM #0.65 103/ulCritically low1.20-3.80The [facility] HospitalComment on above:Performed By: #### CBCJARON ####[facility] Eggcgdnrpd8[address] [place] [address]Dr. Claudettelan ChangLYMPHM%3.0 % Critically low20.5-60.0The [facility] HospitalComment on above:Performed By: #### CBCJARON ####[facility] Rjnupohdkz39[address] [place] [address]Dr. Charlee PearsonMCH31.0 nwVfbtpm16.7-34.0The [facility] HospitalComment on above:Performed By: #### CHANELLE ####[facility] [address]kzvzljeez98[address] [place], [place] [address]Dr. Charlee PearsonMCHC33.3 g/ilPikyrw17.9-35.2The [facility] HospitalComment on above:Performed By: #### CHANELLE ####[facility] Nkvxaaaxuf33[address] [place], [place] [address]Dr. Charlee PearsonMCV 93.[address]TMtglmt61.0-99.0The [facility] HospitalCompontiac general hospital on above:Performed By: #### CHANELLE ####[facility] Kezpuwlryv[address] [place], [place] [address]Dr. Yilan ChangMETAMYELOCYTE #NormalThe St. [facility] on above: Performed By: #### CBCJARON ####[facility] Kxbeikomum8[address] [place], [place] [address]Dr. Yilan ChangMETAMYELOCYTE %NormalThe St. Charles HospitalComment on above:Performed By: #### CBCJARON ####[facility] Odsazanjcj635[address] [place], [place] [address]Dr. Claudettelan ChangMONOM#0.00 103/ulCritically low0.30-0.80The [facility]. [facility] HospitalComment on above:Performed By: #### CBCJARON ####[facility] Xgumchpxkk7[address] [place], [place] [address]Dr. Charlee PearsonMONOM%0.0 %Critically low1.7-12.0The [facility] Comment on above:Performed By: #### CBCJARON ####[facility] Mt[address]an[address] [place] [address]Dr. Charlee ChangMPV9.2 fLCritically low 9.5-13.5The St. [facility] HospitalComment on above:Performed By: #### CBCMAN ####[facility] Gwawzbfhia[address] [place] [address]Dr. Yilan ChangMYELOCYTE #NormalThe [facility] HospitalComment on above:Performed By: #### CBCJARON ####[facility] Xliqwwhdav78[address] [place], [place] [address]Dr. Yilan ChangMYELOCYTE %NormalThe [facility] HospitalComment on above: Performed By: #### CBCJARON ####[facility] Zetuuocqlg525[address] [place], [place] [address]Dr. Yilan ChangNRBCNormalThe [facility] HospitalComment on above:Performed By: #### CBCJARON ####[facility] Ylkphcbqzp6[address] [place], [place] [address]Dr. Claudettelan YvapaKXQ878 103/qmVtddhb735-886Sll St. [facility] HospitalComment on above:Performed By: #### CBCJARON ####[facility] Aoqsnisvqq133[address] [place], [place] [address]Dr. Charlee ChangRBC 3.55 106/ulCritically low4.20-5.40The [facility]. [facility] HospitalComment on above: Performed By: #### CBCJARON ####[facility] Fylbajgdbx[address] [place] [address]Dr. Yilan LlriaQHV29.0 %Eyancr12.0-15.0The [facility] HospitalComment on above:Performed By: #### CBCJARON ####[facility] Lezcmdxiyc413[address] [place], [place] [address]Dr. Charlee PearsonSEG #21.15 103/ulCritically high1.40-6.50The [facility] HospitalComment on above:Performed By: #### CBCJARON ####[facility] Mnumgwwjqd62[address] [place] [address]Dr. Yilan ChangSEG %97.0 %Critically high43.0-75.0The [facility]. [facility] HospitalComment on above:Performed By: #### CBCMAN ####[facility] Mmgbnkjjwp5[address] [place] [address]Dr. Yilan GojayHRK94.8 103/ul Critically high4.0-11.0The St. [facility] HospitalComment on above:Performed By: #### CBCMAN ####[facility] T[address]ussk[address] [place] [address]Dr. Yilan ChangPROF 14(COMP METB)on 70-49-9911Rhhklfs [Mass/Vol]2.4 g/dL Critically low3.4-5.0The St. [facility] HospitalComment on above:Performed By: #### CMP ####[facility] Semnyvhrzw9899[address] [place], [place] [address]Dr. Claudettelan ChangAlbumin/Globulin [Mass ratio]0.8 {ratio}NormalThe [facility] Comment on above:Performed By: #### CMP ####[facility] Pvgomelgfm624[address] [place], [place] [address]Dr.Yilan ChangALP [Catalytic activity/Vol]61 U/MRfiekd58-315Fmm St. [facility] HospitalComment on above:Performed By: #### CMP ####[facility] Qlefvfjhts579[address] [place], [place] [address]Dr. Yilan ChangALT [Catalytic activity/Vol]85 U/LCritically mozq32-21Ohz St. [facility] HospitalComment on above:Performed By: #### CMP ####[facility] Thdkwoppry666[address] [place], [place] [address]Dr.Yilan ChangAnion gap [Moles/Vol]8.2 mmol/LNormalThe St. [facility] HospitalComment on above:Performed By: #### CMP ####[facility] Ypavivevoj969[address] [place], [place] [address]Dr.Yilan ChangAST [Catalytic activity/Vol]21 U/SPxybch92-55Mms St. [facility] HospitalComment on above:Performed By: #### CMP ####[facility] Argzaavwel[address] [place] [address]Dr.Yilan ChangBilirubin [Mass/Vol]0.5 mg/dLNormal0.2-1.0The [facility]. [facility] HospitalComment on above:Performed By: #### CMP ####[facility] Zwwqnymqck[address] [place] [address]Dr.Yilan ChangCalcium [Mass/Vol]8.5 mg/dLNormal8.5-10.1The [facility]. [facility] HospitalComment on above:Performed By: #### CMP ####[facility] Ytlthrvtfx6989[address] [place], [place] [address]Dr.Yilan ChangChloride [Moles/Vol]99 mmol/WItplyy75-597Ndn St. [facility] HospitalComment on above:Performed By: #### CMP ####[facility] Hcnzzpcbor400[address] [place], [place] [address]Dr.Yilan ChangCO2 [Moles/Vol]32.7 mmol/LCritically high21.0-32.0The [facility]. [facility] HospitalComment on above:Performed By: #### CMP ####[facility] Wcbkeoumvq3395[address] [place], [place] [address]Dr.Yilan ChangCreatinine [Mass/Vol]0.52 mg/dLCritically low0.55-1.02The [facility]. [facility] HospitalComment on above:Performed By: #### CMP ####[facility] Wqalzkthtx106[address] [place], [place] [address]Dr.Yilan ChangEGFR-AF KITTITIAN>60Normal>=60The [facility]. [facility] HospitalComment on above:Performed By: #### CMP ####[facility] Yekpltwvyb980[address] [place], [place] [address]Dr.Yilan ChangEGFR-NON AF KITTITIAN>60Normal>=60The [facility]Comp[facility] on above:Performed By: #### CMP ####[facility] Pvozekssrv432[address] [place], [place] [address]Dr. Yilan ChangGlobulin (S) [Mass/Vol]3.2 g/dLNormalThe St. [facility] HospitalComment on above:Performed By: #### CMP ####[facility] Xqsvcpoulg60[address] [place] [address]Dr.Yilan ChangGlucose [Mass/Vol]139 mg/dLCritically qtnm03-770Cjb St. [facility] HospitalComment on above:Performed By: #### CMP ####[facility] Zxodoewukw485[address] [place] [address]Dr. Yilan ChangPotassium [Moles/Vol]3.9 mmol/LNormal3.5-5.1The [facility] Comment on above:Performed By: #### CMP ####[facility] Wsccewijsr526[address] [place], [place] [address]Dr.Yilan ChangProtein [Mass/Vol]5.6 g/dL Critically low6.4-8.2The [facility]. [facility] HospitalComment on above:Performed By: #### CMP ####[facility] Ocufvfcmzs3416[address] [place], [place] [address]Dr. Yilan ChangSodium [Moles/Vol]136 mmol/QKzxfmm598-216Grv St. [facility] HospitalComment on above:Performed By: #### CMP ####[facility] Dxgsxveyau920[address] [place], [place] [address]Dr.Yilan ChangUrea nitrogen [Mass/Vol]15.0 mg/dLNormal 7.0-18.0The [facility] HospitalComment on above:Performed By: #### CMP ####[facility] Gsuwqvswqw920[address] [place], [place] [address]Dr. Yilan ChangUrea nitrogen/Creatinine [Mass ratio]28.8 mg/mgNormalThe St. [facility] HospitalComment on above:Performed By: #### CMP ####[facility] Eozziyapli656[address] [place], [place] [address]Dr.Yilan ChangUA (CLEAN/CATCH) LIBRARIAN HELPER/MICRO IF IND.on 40-19-7614Lycticbut Ql (U)NegativeNormal NEGATIVEThe St. [facility] HospitalComment on above:Performed By: #### UACSIND ####[facility] Wilgjsjzzh079[address] [place], [place] [address]Dr. Yilan ChangClarity (U)CLEARNormalCLEARThe [facility] HospitalComment on above: Performed By: #### UACSIND ####[facility] Xfclrimdoo[address] [place] [address]Dr. Yilan ChangColor (U)LT. YELLOWNormalYELLOWParma Community General Hospital HospitalComment on above:Performed By: #### UACSIND ####[facility] Qjgfbqyhaj678476 [address] [place], [place] [address]Dr. Yilan Pearson Glucose Ql (U)NegativeNormalNEGATIVEParma Community General Hospital HospitalComment on above: Performed By: #### UACSIND ####[facility] Tubpaqnsqb350576 [address] [place], [place] [address]Dr. Yilan ChangHemoglobin Ql (U)NegativeNormalNEGATIVE [facility] HospitalComment on above:Performed By: #### UACSIND ####[facility] Irbdjyxbsk232[address] [place], [place] [address]Dr. Yilan Pearson Ketones Ql (U)NegativeNormalNEGATIVEParma Community General Hospital HospitalComment on above: Performed By: #### UACSIND ####[facility] Jstzqxezla105[address] [place], [place] [address]Dr. Yilan ChangLEUKOCYTESNegativeNormalNEGATIVEParma Community General Hospital HospitalComment on above:Performed By: #### UACSIND ####[facility] Ustzvaatpu7260[address] [place], [place] [address]Dr. Yilan Pearson Nitrite Ql (U)NegativeNormalNEGATIVEParma Community General Hospital HospitalComment on above: Performed By: #### UACSIND ####[facility] Ckyndwrsls030[address] [place], [place] [address]Dr. Yilan ChangpH (U)7.5 [pH]Normal5-9[facility] HospitalComment on above:Performed By: #### UACSIND ####[facility] Qunospallq6249[address] [place], [place] [address]Dr. Yilan ChangSPEC GRAVITY 1.744Nkafqh8.005-<=1.025The St. [facility] HospitalComment on above:Performed By: #### UACSIND ####[facility] Eftlkacgbt516[address] [place], [place] [address]Dr. Yilan ChangUA PROTEINNegativeNormalNEGATIVE/ TRACEThe [facility] Comment on above:Performed By: #### UACSIND ####[facility] Kzwbhxhjhi337[address] [place], [place] [address]Dr. Yilan ChangUR MICRO INDNOT INDICATED NormalThe [facility] HospitalComment on above:Performed By: #### UACSIND ####[facility] Jkpevofiwr1816[address] [place], [place] [address]Dr. Yilan ChangUrobilinogen Qn (U)0.2 {Tye'U}/dLNormal0.2 - 1.0The [facility] HospitalComment on above:Performed By: #### UACSIND ####[facility] Xgvyfmvijd925[address] [place], [place] [address]Dr. Yiclaudette ChangXR CHEST 2 Von [id number] CHEST 2 VNormalSam[facility]itan [facility] W MANUAL DIFFon 03-26-2022 ATYPICAL LYMPH #NormalParma Community General Hospital HospitalComment on above:Performed By: #### CBCMAN ####[facility] Tjaaarqmhi950[address] [place], [place] [address]Dr. Yilan ChangATYPICAL LYMPH %NormalMercy Health Fairfield HospitalComment on above: Performed By: #### CBCMAN ####[facility] Plsvlyrprs296[address] [place], [place] [address]Dr. Yilan ChangBAND #Normal0.0-0.3The [facility] HospitalComment on above:Performed By: #### CBCMAN ####[facility] Aezkbycnrn429[address] [place], [place] [address]Dr. Yilan ChangBAND %Normal 0-5The [facility] HospitalComment on above:Performed By: #### CBCMAN ####[facility] Bjzxioweki3416[address] [place], [place] [address]Dr. Yilan ChangBASOM #0.00 103/ulNormal0.00-0.10The [facility] HospitalComment on above:Performed By: #### CBCMAN ####[facility] Neahsfotnb110[address] [place], [place] [address]Dr. Yilan ChangBASOM %0.0 %Critically low0.2-2.0The [facility] Comment on above:Performed By: #### CBCMAN ####[facility] Rvihlopdvc8765[address] [place], [place] [address]Dr. Yilan ChangBLAST #NormalThe St. [facility] HospitalComment on above:Performed By: #### CBCMAN ####[facility] Rdnxtbugsm1404[address] [place], [place] [address]Dr. Yilan ChangBLAST %Normal The [facility] HospitalComment on above:Performed By: #### CBCMAN ####[facility] Hykhzzqlwp6467[address] [place], [place] [address]Dr. Yilan Pearson CORRECTED WBCNormal4.0-11.0The [facility]. [facility] HospitalComment on above:Performed By: #### CBCMAN ####[facility] Oqvoabxqfb2855[address] [place], [place] [address]Dr. Yilan ChangEOS #0.00 103/ulNormal0.00-0.70The [facility] HospitalComment on above:Performed By: #### CBCMAN ####[facility] Myyjrpfcqh135[address] [place], [place] [address]Dr. Yilan ChangEOS%0.0 %Critically low0.9-7.0The [facility] HospitalComment on above:Performed By: #### CBCMAN ####[facility] Fcdcmygdlp425476 [address] [place], [place] [address]Dr. Yilan ChangHCT 36.8 %Kyugnt62.0-48.0The [facility] HospitalComment on above:Performed By: #### CBCMAN ####[facility] Flafavdawy175[address] [place], [place] [address]Dr. Yilan KqeixUPS33.5 g/feOlewak08.0-16.0The [facility] HospitalComment on above:Performed By: #### CBCMAN ####[facility] Ihnffpgmvn827[address] [place], [place] [address]Dr. Yilan ChangLYMPHM #0.74 103/ulCritically low 1.20-3.80The [facility] HospitalComment on above:Performed By: #### CBCMAN ####[facility] Lirpvokdce[address] [place] [address]Dr. Yiclaudette ChangLYMPHM%5.0 %Critically low20.5-60.0The [facility] HospitalComment on above:Performed By: #### CBCJARON ####[facility] Jycsvwzqev8[address] [place] [address]Dr. Yilan DkibhRSG01.2 okHlkcru15.7-34.0The [facility] HospitalComment on above:Performed By: #### CBCJARON ####[facility] Liecirwivk07[address] [place], [place] [address]Dr. Yilan BzzyuUKET94.0 g/dl Pbbikv05.9-35.2The [facility] HospitalComment on above:Performed By: #### CBCJARON ####[facility] Onrggqxwln7409[address] [place], [place] [address]Dr. Yilan VqzfeNDA83.8 fTBmcefb04.0-99.0The [facility] HospitalComment on above: Performed By: #### CBCJARON ####[facility] Cisbfeesvi0768[address] [place], [place] [address]Dr. Yilan ChangMETAMYELOCYTE #NormalThe [facility]. [facility] HospitalComment on above:Performed By: #### CBCJARON ####[facility] Kjajjyibya4668[address] [place], [place] [address]Dr. Yilan ChangMETAMYELOCYTE %NormalThe [facility] HospitalComment on above:Performed By: #### CBCJARON ####[facility] Ydrpbwywpo576[address] [place], [place] [address]Dr. Yilan ChangMONOM#0.74 103/ulNormal0.30-0.80The [facility] HospitalComment on above:Performed By: #### CBCMAN ####[facility] Twijskpisa630[address] [place], [place] [address]Dr. Yilan ChangMONOM%5.0 %Normal1.7-12.0The [facility] HospitalComment on above:Performed By: #### CBCMAN ####[facility] Uckzjnmoke955[address] [place], [place] [address]Dr. Yilan ChangMPV9.1 fL Critically low9.5-13.5The [facility] HospitalComment on above:Performed By: #### CBCJARON ####[facility] Tqaqrkiewj[address] [place] [address]Dr. Yilan ChangMYELOCYTE #NormalMercy Health Fairfield HospitalComment on above: Performed By: #### CHANELLE ####[facility] Hobppvvezc8[address] [place] [address]Dr. Yilan ChangMYELOCYTE %NormalThe [facility] Comment on above:Performed By: #### CBCJARON ####[facility] Smksoecktv020[address] [place] [address]Dr. Yilan ChangNRBCNormalThe St. [facility] HospitalComment on above:Performed By: #### CHANELLE ####[facility] Xglwlylgtw7[address] [place] [address]Dr. Claudettelan XumsmMXE257 103/ul Critically jlth351-257Dtv [facility] HospitalComment on above:Performed By: #### CHANELLE ####[facility] Mvpaaqsptz9588[address] [place], [place] [address]Dr. Yilan ChangRBC4.01 106/ulCritically low4.20-5.40[facility] Comment on above:Performed By: #### CHANELLE ####[facility] Lvszflbzxa5768[address] [place], [place] [address]Dr. Yilan SpodbCZB72.1 %Dpbvcq44.0-15.0[facility] HospitalComment on above:Performed By: #### CHANELLE ####[facility] Rachrbelbz5019[address] [place], [place] [address]Dr. Yilan ChangSEG # 13.41 103/ulCritically high1.40-6.50The [facility] HospitalComment on above: Performed By: #### CHANELLE ####[facility] Pasohmrysj2332[address] [place], [place] [address]Dr. Claudettelan ChangSEG %90.0 %Critically high43.0-75.0The [facility] HospitalComment on above:Performed By: #### CHANELLE ####[facility] Fhpdqhexid923[address] [place], [place] [address]Dr. Yilan ChangTOXIC GRANULATION2+NormalThe St. [facility] HospitalComment on above:Performed By: #### CBCMAN ####[facility] Brvgzibujg199[address] [place], [place] [address]Dr. Yiclaudette JhvgkPPD03.9 103/ulCritically high4.0-11.0[facility] Comment on above:Performed By: #### CBCMAN ####[facility] Quelguhpan969[address] [place], [place] [address]Dr. Yilan ChangPROF 14(COMP METB)on 72-53-8865Laujwnv [Mass/Vol]2.4 g/dLCritically low3.4-5.0[facility] Comment on above:Performed By: #### CMP ####[facility] Hwkadvoyzt495[address] [place], [place] [address]Dr.Charlee ChangAlbumin/Globulin [Mass ratio] 0.7 {ratio}NormalThe St. [facility] HospitalComment on above:Performed By: #### CMP ####[facility] Dsokecsqhm835[address] [place], [place] [address]Dr. Claudettelan ChangALP [Catalytic activity/Vol]74 U/DQcvrbe16-460Gjn [facility] Comment on above:Performed By: #### CMP ####[facility] Tqulpuvofy8469[address] [place], [place] [address]Dr.Claudettelan ChangALT [Catalytic activity/Vol] 108 U/LCritically shfv30-36WzkMercy Health Fairfield HospitalComment on above:Performed By: #### CMP ####[facility] Yicnwmauxw2189[address] [place], [place] [address]Dr.Charlee ChangAnion gap [Moles/Vol]8.8 mmol/LNormalThe [facility] Comment on above:Performed By: #### CMP ####[facility] Dsyqrkvvtj764[address] [place], [place] [address]Dr.Yilan ChangAST [Catalytic activity/Vol]26 U/XArnktx84-39Snd St[facility] HospitalComment on above:Performed By: #### CMP ####[facility] Gsrlietbjy229[address] [place], [place] [address]Dr. Claudettelan ChangBilirubin [Mass/Vol]0.3 mg/dLNormal0.2-1.0The [facility] Comment on above:Performed By: #### CMP ####[facility] Kftxrljdtl857[address] [place], [place] [address]Dr.Yilan ChangCalcium [Mass/Vol]8.7 mg/dL Normal8.5-10.1The [facility] HospitalComment on above:Performed By: #### CMP ####[facility] Xfiouthrmg048676 [address] [place], [place] [address]Dr. Yilan ChangChloride [Moles/Vol]97 mmol/LCritically eqk97-657Izj [facility] HospitalComment on above:Performed By: #### CMP ####[facility] Mxskwtbvri739[address] [place], [place] [address]Dr.Yilan ChangCO2 [Moles/Vol] 32.5 mmol/LCritically high21.0-32.0The [facility] HospitalComment on above: Performed By: #### CMP ####[facility] Imdknupfns413[address] [place], [place] [address]Dr.Yilan ChangCreatinine [Mass/Vol]0.55 mg/dLNormal 0.55-1.02The [facility] HospitalComment on above:Performed By: #### CMP ####[facility] Itqnphffxn639[address] [place], [place] [address]Dr. Yilan ChangEGFR-AF KITTITIAN>60Normal>=60The [facility] HospitalComment on above: Performed By: #### CMP ####[facility] Ngjfkfdiwo3527[address] [place], [place] [address]Dr.Yilan ChangEGFR-NON AF KITTITIAN>60Normal>=60The [facility] HospitalComment on above:Performed By: #### CMP ####[facility] Nfoaibxhrg633[address] [place], [place] [address]Dr.Yilan ChangGlobulin (S) [Mass/Vol]3.4 g/dLNormalThe St. [facility] HospitalComment on above:Performed By: #### CMP ####[facility] Pzrmoofaxz925[address] [place], [place] [address]Dr.Yilan ChangGlucose [Mass/Vol]161 mg/dLCritically lvgo77-590Twv [facility] HospitalComment on above:Performed By: #### CMP ####[facility] Hegxwvpmsu501[address] [place], [place] [address]Dr.Charlee PearsonPotassium [Moles/Vol]3.3 mmol/LCritically low3.5-5.1The [facility] HospitalComment on above: Performed By: #### CMP ####[facility] Zwngvqemrq610[address] [place], [place] [address]Dr.Charlee ChangProtein [Mass/Vol]5.8 g/dLCritically low 6.4-8.2The [facility] HospitalComment on above:Performed By: #### CMP ####[facility] Iivyvipaad170[address] [place], [place] [address]Dr.Charlee Pearson Sodium [Moles/Vol]135 mmol/LCritically vza584-893Orz [facility] HospitalComment on above:Performed By: #### CMP ####[facility] Wmchbkqenv7264[address] [place], [place] [address]Dr.Charlee ChangUrea nitrogen [Mass/Vol]15.0 mg/dLNormal 7.0-18.0The [facility] HospitalComment on above:Performed By: #### CMP ####[facility] Crwydllxxd6632[address] [place], [place] [address]Dr. Charlee ChangUrea nitrogen/Creatinine [Mass ratio]27.3 mg/mgNormalThe St. [facility] HospitalComment on above:Performed By: #### CMP ####[facility] Pkpustcuos4034[address] [place], [place] [address]Dr.Charlee PearsonCBC W MANUAL DIFFon 83-99-2294TINPQDGC LYMPH #NormalThe St. [facility] HospitalComment on above: Performed By: #### CBCMAN ####[facility] Ccmvnjosgm5539[address] [place], [place] [address]Dr. Charlee ChangATYPICAL LYMPH %NormalThe [facility]. [facility] HospitalComment on above:Performed By: #### CBCMAN ####[facility] Sphkxzmoae6612[address] [place], [place] [address]Dr. Charlee PearsonBAND #Normal 0.0-0.3The [facility] HospitalComment on above:Performed By: #### CBCMAN ####[facility] Fadnueynrd[address] [place] [address]Dr. Yilan ChangBAND %Normal0-5The [facility] HospitalComment on above:Performed By: #### CBCMAN ####[facility] Jqibagypwt90[address] [place] [address]Dr. Yilan ChangBASOM #0.00 103/ulNormal0.00-0.10[facility] Comment on above:Performed By: #### CBCMAN ####[facility] Lrswtmqxiv4[address] [place] [address]Dr. Yilan ChangBASOM %0.0 %Critically low 0.2-2.0The [facility] HospitalComment on above:Performed By: #### CBCMAN ####[facility] Gwztduitwt300[address] [place], [place] [address]Dr. Yilan ChangBLAST #NormalThe [facility] HospitalComment on above:Performed By: #### CBCMAN ####[facility] Nqkmtxoisr[address] [place], [place] [address]Dr. Yilan ChangBLAST %NormalThe [facility]. [facility] HospitalComment on above:Performed By: #### CBCMAN ####[facility] Sytlmczdqv7650[address] [place], [place] [address]Dr. Yilan ChangCORRECTED WBCNormal4.0-11.0The [facility] HospitalComment on above:Performed By: #### CBCMAN ####[facility] Ldysrdnrla826[address] [place], [place] [address]Dr. Yilan ChangEOS #0.00 103/ulNormal0.00-0.70The [facility] HospitalComment on above:Performed By: #### CBCMAN ####[facility] Gyhidxfakk378[address] [place], [place] [address]Dr. Yilan ChangEOS% 0.0 %Critically low0.9-7.0The [facility] HospitalComment on above:Performed By: #### CBCMAN ####[facility] Ojnhxkexhn475[address] [place], [place] [address]Dr. Yilan EseiqCCL72.7 %Xzmbnz23.0-48.0The [facility] HospitalComment on above:Performed By: #### CBCJARON ####[facility] Sagjliyysl[address] [place] [address]Dr. Charlee BcdxwIKA24.5 g/dhXdltka63.0-16.0The [facility] HospitalComment on above:Performed By: #### CBCJARON ####[facility] Miygewprrs328[address] [place], [place] [address]Dr. Charlee Channing HomeHM #1.22 103/ulNormal1.20-3.80The [facility] HospitalComment on above:Performed By: #### CBCJARON ####[facility] Chhjnxgclc67[address] [place], [place] [address]Dr. Charlee Channing HomeHM%8.0 %Critically low20.5-60.0The [facility] Comment on above:Performed By: #### CBCJARON ####[facility] Cveuqnxlam127[address] [place], [place] [address]Dr. Charlee GrwtgOCH03.2 peEqchzl96.7-34.0The [facility] HospitalComment on above:Performed By: #### CBCJARON ####[facility] Qtqgqajpsl6318[address] [place], [place] [address]Dr. Charlee [facility] HospitalHC 34.0 g/fbQicwkt75.9-35.2The [facility] HospitalComment on above:Performed By: #### CBCJARON ####[facility] Mqxrpnfxxw05[address] [place], [place] [address]Dr. Charlee FmxqtKTO60.[address] jNSueprh40.0-99.0The [facility] HospitalComment on above:Performed By: #### CBCJARON ####[facility] Fsmnjkgmzc954[address] [place], [place] [address]Dr. Claudettethedacare [facility] ChangMETAMYELOCYTE #NormalThe St. [facility] HospitalComment on above:Performed By: #### CBCJARON ####[facility] Ysumweclbs37[address] [place], [place] [address]Dr. Claudettethedacare medical center [facility] rose ChangMETAMYELOCYTE %NormalThe [facility]. [facility] HospitalComment on above:Performed By: #### CBCJARON ####[facility] Pbvhysevmo[address] [place] [address]Dr. Yilan ChangMONOM#1.06 103/ulCritically high0.30-0.80The [facility] HospitalComment on above:Performed By: #### CBCJARON ####[facility] Rarnjqxtbg76[address] [place] [address]Dr. Yilan ChangMONOM%7.0 %Normal1.7-12.0The [facility] HospitalComment on above:Performed By: #### CBCJARON ####[facility] Vpfstxxvza95[address] [place] [address]Dr. Yilan ChangMPV 10.3 fLNormal9.5-13.5The [facility] HospitalComment on above:Performed By: #### CBCJARON ####[facility] Tqxdemfemj[address] [place], [place] [address]Dr. Yilan ChangMYELOCYTE #NormalThe [facility]. [facility] HospitalComment on above: Performed By: #### CBCJARON ####[facility] [address]ftzawdvjw[address] [place] [address]Dr. Yilan ChangMYELOCYTE %NormalThe [facility] Comment on above:Performed By: #### CBCJARON ####[facility] Mqoaxhblcw[address] [place] [address]Dr. Yilan ChangNRBCNormalThe St. Charles HospitalComment on above:Performed By: #### CBCJARON ####[facility] Tdyycmyyck78[address] [place] [address]Dr. Yilan ZknytQKN848 103/ul Nrkivy302-292Boo St. [facility] HospitalComment on above:Performed By: #### CBCJARON ####[facility] Xgyjyradil8[address] [place] [address]Dr. Yilan ChangRBC4.33 106/ulNormal4.20-5.40The [facility] HospitalComment on above: Performed By: #### CBCJARON ####[facility] Ywsywdnepk[address] [place] [address]Dr. Yilan BvviqGRK89.1 %Ktjikx85.0-15.0The [facility] HospitalComment on above:Performed By: #### CBCMAN ####[facility] Oirtqffdlc033[address] [place] [address]Dr. Charlee MoroeG #12.92 103/ulCritically high1.40-6.50The [facility] HospitalComment on above:Performed By: #### CBCMAN ####[facility] Ridieeemlv[address] [place], [place] [address]Dr. Charlee PearsonSEG %85.0 %Critically high43.0-75.0The [facility] HospitalComment on above:Performed By: #### CBCMAN ####[facility] Zxxanggfat8669[address] [place], [place] [address]Dr. Charlee PearsonWBC15.2 103/ul Critically high4.0-11.0The [facility] HospitalComment on above:Performed By: #### CBCMAN ####[facility] Xqukrpbwrl6814[address] [place], [place] [address]Dr. Charlee ChangFREE T3on 01-73-3241MRFQ T30.74 pg/mlLCritically low 2.18-3.98The [facility] HospitalComment on above:Performed By: #### TSH, FT3 ####[facility] Kupaqswoji440[address] [place], [place] [address]Dr. Charlee ChangFREE T4on 67-54-7433Xzjt T4 [Mass/Vol]1.27 ng/dLNormal0.76-1.46The [facility] HospitalComment on above:Performed By: #### FT4 ####[facility] Bcjooaebor[address] [place], [place] [address]Dr.Charlee PearsonLIVER PROFILEon 12-62-1389Wwcxadc [Mass/Vol]2.8 g/dLCritically low3.4-5.0The [facility] Comment on above:Performed By: #### LIVER ####[facility] Argirkierp248[address] [place], [place] [address]Dr. Charlee ChangAlbumin/Globulin [Mass ratio] 0.7 {ratio}NormalThe St. Charles HospitalComment on above:Performed By: #### LIVER ####[facility] Daczmdvlcl2545 [place], [place] [address]Qs. Yilan ChangALP [Catalytic activity/Vol]89 U/SJbttnf51-737Gyt [facility] Comment on above:Performed By: #### LIVER ####[facility] Lsbbafxnje5838 [place], [place] [address]Vi. Yilan ChangALT [Catalytic activity/Vol] 158 U/LCritically mvyl85-29Myi [facility] HospitalComment on above:Performed By: #### LIVER ####[facility] Fierpokjlw36[address] [place] [address]Dr. Yilan ChangAST [Catalytic activity/Vol]55 U/LCritically wwdu60-74Omx [facility] HospitalComment on above:Performed By: #### LIVER ####[facility] Bcfcdsevbt3558 [place] [address]Dr. Yilan ChangBILI, CONJUGATED0.1 mg/dLNormal0.0-0.2The [facility] HospitalComment on above:Performed By: #### LIVER ####[facility] Myfbrkrfmb2716 [place] [address]Dr. Yilan ChangBilirubin [Mass/Vol]0.3 mg/dLNormal0.2-1.0The [facility] HospitalComment on above:Performed By: #### LIVER ####[facility] Djiwedkiui1052 [place] [address]Dr. Yilan ChangGlobulin (S) [Mass/Vol]4.0 g/dLNoProtestant Deaconess HospitalComment on above:Performed By: #### LIVER ####[facility] Yaqrrmizab0575 [place] [address]Dr. Yilan ChangProtein [Mass/Vol]6.8 g/dLNormal6.4-8.2The [facility] Comment on above:Performed By: #### LIVER ####[facility] Mdpgmfxdlw4286 [place] [address]Dr. Yilan ChangLOWER RESPIRATORY CULTUREon 05-87-9031Wvkfl Respiratory CultureFinal reportOhioHealth Berger Hospital Comment on above:Performed By: #### CXLORES ####[facility] Zjhrkuifav31[address] [place], [place] [address]Dr. Yilan ChangResult 1CommentNoalThe St. Charles HospitalComment on above:Result Comment: No growth in 36 - 48 hours. Performed By: #### CXLORES ####[facility] Tenbnnwnug6767[address] [place], [place] [address]Dr. Yilan ChangResult Comment: Routine respiratory floraPROF CHEM 8 (BAS METB)on 97-33-4595Nitjo gap [Moles/Vol]10.9 mmol/LNormal The St. [facility] HospitalComment on above:Performed By: #### BMP ####[facility] Vnnzztpran678[address] [place], [place] [address]Dr.Yilan Pearson Calcium [Mass/Vol]9.5 mg/dLNormal8.5-10.1The [facility] HospitalComment on above: Performed By: #### BMP ####[facility] Lpphqckosa6639[address] [place], [place] [address]Dr.Yilan ChangChloride [Moles/Vol]97 mmol/LCritically zmv89-419Zbd [facility] HospitalComment on above:Performed By: #### BMP ####[facility] Pfgjmeiniy6085[address] [place], [place] [address]Dr. Yilan ChangCO2 [Moles/Vol]32.6 mmol/LCritically high21.0-32.0[facility] HospitalComment on above:Performed By: #### BMP ####[facility] Xzjebjfbox707[address] [place], [place] [address]Dr.Yilan ChangCreatinine [Mass/Vol]0.56 mg/dLNormal0.55-1.02The [facility] HospitalComment on above: Performed By: #### BMP ####[facility] Lvqzsgrpii8637[address] [place], [place] [address]Dr.Yilan ChangEGFR-AF KITTITIAN>60Normal>=60The [facility] HospitalComment on above:Performed By: #### BMP ####[facility] Dgkacaaiaj485[address] [place], [place] [address]Dr.Yilan ChangEGFR-NON AF KITTITIAN>60Normal>=60The [facility] HospitalComment on above:Performed By: #### BMP ####[facility] Snpcresfke6085[address] [place], [place] [address]Dr. Claudettelan ChangGlucose [Mass/Vol]154 mg/dLCritically yyey19-722Lxw [facility] Comment on above:Performed By: #### BMP ####[facility] Ggcpzsefqg980476 [address] [place], [place] [address]Dr.Yilan ChangPotassium [Moles/Vol]3.5 mmol/LNormal3.5-5.1The [facility] HospitalComment on above:Performed By: #### BMP ####[facility] Sopawnlnsj7216[address] [place], [place] [address]Dr. Yilan ChangSodium [Moles/Vol]137 mmol/TYvojxg842-675Xks [facility] HospitalComment on above:Performed By: #### BMP ####[facility] Dcahmiepur529[address] [place], [place] [address]Dr.Yilan ChangUrea nitrogen [Mass/Vol]13.0 mg/dLNormal 7.0-18.0The [facility] HospitalComment on above:Performed By: #### BMP ####[facility] Owfmrllgin427[address] [place], [place] [address]Dr. Yilan ChangUrea nitrogen/Creatinine [Mass ratio]23.2 mg/mgNormalThe St. [facility] HospitalComment on above:Performed By: #### BMP ####[facility] Mbjuzwmfof477[address] [place], [place] [address]Dr.Yiclaudette ChangTSHon 75-43-1792OFO3.026 uIU/mLCritically low0.358-3.740The [facility] HospitalComment on above:Performed By: #### TSH, FT3 ####[facility] Btfbuibdxo3400[address] [place], [place] [address]Dr. Yilan ChangVITAMIN D 25 OHon 17-26-6129WHA D 25-OH62.5 ng/mLNormalThe St. [facility] HospitalComment on above:Performed By: #### VITAD ####[facility] Xnxddyhgyz5[address] [place] [address]Dr. Claudetteclaudette PearsonVIT D RANGESSEE BELOWNormSCCI Hospital LimaComment on above:Result Comment: <20 ng/mL Vit D deficient 20 - <30 ng/mL Vit D insufficient 30 - 100 ng/mL Vit D sufficient >100 ng/mL Potential Toxicity Performed By: #### VITAD ####[facility] Bcazlwymqh216[address] [place], [place] [address]Dr. Claudetteclaudette ChangXR CHEST 2 Von 23-95-7079QE CHEST 2 V NormalSamaritan Hospital W MANUAL DIFFon 88-99-0395OHWJQEYW LYMPH #Normal [facility] HospitalComment on above:Performed By: #### CBCJARON ####[facility] Pcyhslpmtx0912[address] [place], [place] [address]Dr. Claudetteclaudette Pearson ATYPICAL LYMPH %NormalMercy Health Fairfield HospitalComment on above:Performed By: #### CBCJARON ####[facility] Ixzjsbspnd346[address] [place], [place] [address]Dr. Claudetteclaudette PearsonBAND #0.5 103/ulCritically high0.0-0.3TAvita Health System [facility] Comment on above:Performed By: #### CBCJARON ####[facility] Rwdyldhabz217[address] [place], [place] [address]Dr. Claudetteclaudette ChangBAND %4 %Normal0-5The [facility] HospitalComment on above:Performed By: #### CBCJARON ####[facility] Upowhfpokc738[address] [place], [place] [address]Dr. Yilan ChangBASOM #0.00 103/ulNormal0.00-0.10The [facility] HospitalComment on above:Performed By: #### CBCJARON ####[facility] Sxtwagzutg410[address] [place], [place] [address]Dr. Claudettelan ChangBASOM %0.0 %Critically low0.2-2.0[facility] Comment on above:Performed By: #### CBCJARON ####[facility] Ombdmahxry7411[address] [place], [place] [address]Dr. Yilan ChangBLAST #NormalParma Community General Hospital HospitalComment on above:Performed By: #### CBCJARON ####[facility] Iasfkcznhs5[address] [place] [address]Dr. Yilan ChangBLAST %Normal The [facility] HospitalComment on above:Performed By: #### CBCMAN ####[facility] Caiambypcu310[address] [place], [place] [address]Dr. Yilan Pearson CORRECTED WBCNormal4.0-11.0The [facility] HospitalComment on above:Performed By: #### CBCMAN ####[facility] Lhkmukktmu7875[address] [place], [place] [address]Dr. Yilan ChangEOS #0.00 103/ulNormal0.00-0.70The [facility] HospitalComment on above:Performed By: #### CBCMAN ####[facility] Kgtskjgkbz6759[address] [place], [place] [address]Dr. Yilan ChangEOS%0.0 %Critically low0.9-7.0The [facility] HospitalComment on above:Performed By: #### CBCJARON ####[facility] Jtlkgmjlog540[address] [place], [place] [address]Dr. Yilan ChangHCT 34.3 %Critically low36.0-48.0The [facility] HospitalComment on above:Performed By: #### CBCJARON ####[facility] Jjtgnajnkx1534[address] [place], [place] [address]Dr. Charlee QtkroODU98.4 g/dlCritically low12.0-16.0The [facility] Comment on above:Performed By: #### CBCMAN ####[facility] Ckfejvmjrj4034[address] [place], [place] [address]Dr. Yilan ChangLYMPHM #0.76 103/ulCritically low1.20-3.80The [facility] HospitalComment on above:Performed By: #### CBCMAN ####[facility] Zbalfqwagl260[address] [place], [place] [address]Dr. Yilan ChangLYMPHM%6.0 %Critically low20.5-60.0The [facility] HospitalComment on above:Performed By: #### CBCMAN ####[facility] Xfdsdcpsmf3228[address] [place], [place] [address]Dr. Yilan ClnwuRZO18.8 lhSthfya46.7-34.0The [facility] HospitalComment on above:Performed By: #### CBCJARON ####[facility] Rqzhphlexe039[address] [place] [address]Dr. Charlee PearsonMCHC33.2 g/dl Qrafws19.9-35.2The [facility] HospitalComment on above:Performed By: #### CBCJARON ####[facility] Xmgdikmpxq9171 [place] [address]Dr. Charlee PearsonMCV92.7 cSZfrnbx24.0-99.0The [facility] HospitalComment on above: Performed By: #### CBCJARON ####[facility] Pdcgugovry0020[address] [place], [place] [address]Dr. Claudettelan ChangMETAMYELOCYTE #NormalThe [facility] HospitalComment on above:Performed By: #### CBCJARON ####[facility] Ohwvmjncgw0109[address] [place], [place] [address]Dr. Claudettelan ChangMETAMYELOCYTE %NormalThe [facility] HospitalComment on above:Performed By: #### CBCJARON ####[facility] Ywazdqmfyi615[address] [place], [place] [address]Dr. Charlee ChangMONOM#0.64 103/ulNormal0.30-0.80The [facility] HospitalComment on above:Performed By: #### CBCJARON ####[facility] Kujusbswwk464[address] [place], [place] [address]Dr. Charlee ChangMONOM%5.0 %Normal1.7-12.0The [facility] HospitalComment on above:Performed By: #### CBCJARON ####[facility] Xhcagojrap5552 [place] [address]Dr. Claudettelan ChangMPV9.4 fL Critically low9.5-13.5The [facility] HospitalComment on above:Performed By: #### CBCJARON ####[facility] Psxrhunslf859[address] [place], [place] [address]Dr. Yilan ChangMYELOCYTE #NormalThe [facility] HospitalComment on above: Performed By: #### CBCJARON ####[facility] Lctuimnztb7832 [place] [address]Dr. Charlee ChangMYELOCYTE %NormalThe [facility] Comment on above:Performed By: #### CBCJARON ####[facility] Mjwmkynlxe9082 [place] [address]Dr. Charlee PearsonNRBCNormalThe St. [facility] HospitalComment on above:Performed By: #### CBCJARON ####[facility] Dtsoqvdwfd8[address] [place] [address]Dr. Charlee HtjfzPRQ689 103/ul Hsvizy390-889Lxi [facility] HospitalComment on above:Performed By: #### CBCMAN ####[facility] Xmhgbkqqzb664[address] [place], [place] [address]Dr. Charlee PearsonRBC3.70 106/ulCritically low4.20-5.40The [facility] HospitalComment on above:Performed By: #### CBCJARON ####[facility] Ykzopkuoet710[address] [place], [place] [address]Dr. Charlee NbmqaSXJ37.2 %Trwncf62.0-15.0The [facility] HospitalComment on above:Performed By: #### CBCJARON ####[facility] Fnjrjwpqvg3915[address] [place], [place] [address]Dr. Charlee PearsonSEG #10.79 103/ulCritically high1.40-6.50The [facility] HospitalComment on above:Performed By: #### CBCJARON ####[facility] Yffdnhnigj139[address] [place], [place] [address]Dr. Charlee PearsonSEG %85.0 %Critically high43.0-75.0The [facility] HospitalComment on above:Performed By: #### CBCMAN ####[facility] Ewrxxxnqgs2633[address] [place], [place] [address]Dr. Charlee WoeylZWE79.7 103/ul Critically high4.0-11.0The [facility] HospitalComment on above:Performed By: #### CBCMAN ####[facility] Vibixfkhrm413[address] [place], [place] [address]Dr. Charlee PearsonPROF CHEM 8 (BAS METB)on 10-52-3850Xdnii gap [Moles/Vol]7.5 mmol/LNormalThe St. [facility] HospitalComment on above:Performed By: #### BMP ####[facility] Kkiqvvjmpd885[address] [place], [place] [address]Dr. Yilan ChangCalcium [Mass/Vol]9.0 mg/dLNormal8.5-10.1The [facility] HospitalComment on above:Performed By: #### BMP ####[facility] Tobwujnebs6080[address] [place], [place] [address]Dr.Yilan ChangChloride [Moles/Vol]100 mmol/LNormal 98-107The [facility] HospitalComment on above:Performed By: #### BMP ####[facility] Herbvnivqa049[address] [place], [place] [address]Dr.Yilan ChangCO2 [Moles/Vol]32.3 mmol/LCritically high21.0-32.0The [facility] HospitalComment on above:Performed By: #### BMP ####[facility] Xlawzgidow3680[address] [place], [place] [address]Dr.Yilan ChangCreatinine [Mass/Vol]0.50 mg/dL Critically low0.55-1.02The [facility] HospitalComment on above:Performed By: #### BMP ####[facility] Rduvzdynil455[address] [place], [place] [address]Dr. Yilan ChangEGFR-AF KITTITIAN>60Normal>=60The [facility] HospitalComment on above: Performed By: #### BMP ####[facility] Osfwunezfw0912[address] [place], [place] [address]Dr.Yilan ChangEGFR-NON AF KITTITIAN>60Normal>=60The [facility] HospitalComment on above:Performed By: #### BMP ####[facility] Igzplayxzv078[address] [place], [place] [address]Dr.Yilan ChangGlucose [Mass/Vol]147 mg/dLCritically amnn76-513Uxj [facility] HospitalComment on above: Performed By: #### BMP ####[facility] Paagakyvgs201[address] [place], [place] [address]Dr.Yilan ChangPotassium [Moles/Vol]3.8 mmol/LNormal 3.5-5.1The [facility] HospitalComment on above:Performed By: #### BMP ####[facility] Xwkedcpgou969[address] [place], [place] [address]Dr.Charlee Pearson Sodium [Moles/Vol]136 mmol/NDjllec447-165Xql [facility] HospitalComment on above: Performed By: #### BMP ####[facility] Snxfvcnryt0669[address] [place], [place] [address]Dr.Claudettelan ChangUrea nitrogen [Mass/Vol]13.0 mg/dLNormal 7.0-18.0The [facility] HospitalComment on above:Performed By: #### BMP ####[facility] Gwsbkpnvkr9260[address] [place], [place] [address]Dr. Claudettelan ChangUrea nitrogen/Creatinine [Mass ratio]26.0 mg/mgNormalThe St. [facility] HospitalComment on above:Performed By: #### BMP ####[facility] Zoncvvniqt0860[address] [place], [place] [address]Dr.Charlee ChangCBC AUTO DIFFon 89-04-8714QMSO #0.1 103/ulNormal0.0-0.1The [facility] HospitalComment on above: Performed By: #### CBC ####[facility] Sqxyexglpd408[address] [place], [place] [address]Dr.Claudettelan ChangBasophils/100 WBC (Bld)0.3 %Normal 0.2-2.0The [facility] HospitalComment on above:Performed By: #### CBC ####[facility] Pajkzcgbvo688[address] [place], [place] [address]Dr.Yilan ChangEO # 0.0 103/ulNormal0.0-0.7The [facility] HospitalComment on above:Performed By: #### CBC ####[facility] Ekeyamulbk498[address] [place], [place] [address]Dr. Claudettelan ChangEosinophils/100 WBC (Bld)0.0 %Critically low0.9-7.0The [facility] HospitalComment on above:Performed By: #### CBC ####[facility] Cdkiqgvxle6277 [place] [address]Dr.Charlee ChangErythrocyte distribution width (RBC) [Ratio]13.2 %Iqenup91.0-15.0The [facility] Comment on above:Performed By: #### CBC ####[facility] Xdedyuxefw208476 [address] [place], [place] [address]Dr.Charlee ChangHematocrit (Bld) [Volume fraction]33.6 %Critically low36.0-48.0The [facility] HospitalComment on above: Performed By: #### CBC ####[facility] Krvkwwdxnm2349[address] [place], [place] [address]Dr.Claudetteclaudette ChangHemoglobin (Bld) [Mass/Vol]11.6 g/dL Critically low12.0-16.0The [facility] HospitalComment on above:Performed By: #### CBC ####[facility] Rzhrpvggos185[address] [place], [place] [address]Dr. Claudettelan ChangIG #0.79 10e3/ulCritically high0.00-0.03The [facility] HospitalComment on above:Performed By: #### CBC ####[facility] Oqruihscnc3834[address] [place], [place] [address]Dr.Claudetteclaudette ChangIG %3.4 %Critically high0.0-0.5The [facility] HospitalComment on above:Performed By: #### CBC ####[facility] Bufszmwqsa[address] [place], [place] [address]Dr.Claudetteclaudette ChangLYMPH #0.7 103/ulCritically low1.2-3.8The [facility] HospitalComment on above:Performed By: #### CBC ####[facility] Esjzycykmf6935[address] [place], [place] [address]Dr.Claudettelan ChangLymphocytes/100 WBC (Bld)3.0 %Critically low20.5-60.0The [facility] HospitalComment on above:Performed By: #### CBC ####[facility] Nlsfsytybu0529[address] [place], [place] [address]Dr.Claudetteclaudette ChangMANUAL DIFF REQ NONormalThe St. [facility] HospitalComment on above:Performed By: #### CBC ####[facility] Hoqkyvgcwb69[address] [place] [address]Dr. Charlee PearsonMCH (RBC) [Entitic mass]31.4 csRhsdpa54.7-34.0The [facility] Comment on above:Performed By: #### CBC ####[facility] Oqlcattpqa1443 [place] [address]Dr.Charlee PearsonMCHC (RBC) [Mass/Vol]34.5 g/dL Obcqcd72.9-35.2The [facility] HospitalComment on above:Performed By: #### CBC ####[facility] Gsfmkjinhs205[address] [place], [place] [address]Dr. Claudetteclaudette PearsonMCV (RBC) [Entitic vol]91.1 qBRewrjv29.0-99.0The [facility] Comment on above:Performed By: #### CBC ####[facility] Xclzcvtsmf864[address] [place], [place] [address]Dr.Charlee MichelMONO #0.9 103/ulCritically high0.3-0.8The [facility] HospitalComment on above:Performed By: #### CBC ####[facility] Whhqrdnurt319[address] [place], [place] [address]Dr. Charlee PearsonMonocytes/100 WBC (Bld)4.0 %Normal1.7-12.0The [facility] Comment on above:Performed By: #### CBC ####[facility] Udcyaqgwbc917[address] [place], [place] [address]Dr.Charlee PearsonNEUT #20.9 103/ulCritically high1.4-6.5The [facility] HospitalComment on above:Performed By: #### CBC ####[facility] Hruupohlji4811[address] [place], [place] [address]Dr. Charlee MichelNeutrophils/100 WBC (Bld)89.3 %Critically high43.0-75.0The [facility] HospitalComment on above:Performed By: #### CBC ####[facility] Sadffrolcp876[address] [place], [place] [address]Dr.Charlee PearsonPlatelet mean volume (Bld) [Entitic vol]9.5 fLNormal9.5-13.5The [facility] HospitalComment on above:Performed By: #### CBC ####[facility] Hhxwuzlysu34[address] [place] [address]Dr.Charlee PearsonPLT337 103/ukRwacuc385-021Lyu St[facility] HospitalComment on above:Performed By: #### CBC ####[facility] Znnbwmlnuv1310[address] [place], [place] [address]Dr.Charlee PearsonRBC3.69 106/ul Critically low4.20-5.40The [facility] HospitalComment on above:Performed By: #### CBC ####[facility] Lnclogcufk4024[address] [place], [place] [address]Dr. Charlee PearsonWBC23.4 103/ulCritically high4.0-11.0The [facility] HospitalComment on above:Performed By: #### CBC ####[facility] Duagbxwckf510[address] [place], [place] [address]Dr.Charlee ChangECHOCARDIO M/2D COMPLETEon 03-23-2022 ECHOCARDIO M/2D COMPLETENormalThe [facility] HospitalMAGNESIUMon 03-23-2022 Magnesium [Mass/Vol]1.9 mg/dLNormal1.8-2.4The [facility] HospitalComment on above: Performed By: #### MG ####[facility] Anwxmxtbgc7159[address] [place], [place] [address]Dr. Charlee PearsonPROF CHEM 8 (BAS METB)on 03-23-2022 Anion gap [Moles/Vol]11.1 mmol/LNormalThe St. [facility] HospitalComment on above: Performed By: #### BMP ####[facility] Mloyyddpfw[address] [place], [place] [address]Dr.Charlee PearsonCalcium [Mass/Vol]8.9 mg/dLNormal 8.5-10.1The [facility] HospitalComment on above:Performed By: #### BMP ####[facility] Tlbsxpfowz4432[address] [place], [place] [address]Dr. Charlee PearsonChloride [Moles/Vol]97 mmol/LCritically vqt23-505Ngx [facility] HospitalComment on above:Performed By: #### BMP ####[facility] Vxnnylddvg0382 [place] [address]Dr.Yilan ChangCO2 [Moles/Vol] 31.1 mmol/VSwyfkb14.0-32.0The [facility] HospitalComment on above:Performed By: #### BMP ####[facility] Edejedwvyb357[address] [place], [place] [address]Dr.Yilan ChangCreatinine [Mass/Vol]0.55 mg/dLNormal0.55-1.02The [facility] HospitalComment on above:Performed By: #### BMP ####[facility] Qvihfibijh78[address] [place], [place] [address]Dr.Yilan ChangEGFR-AF KITTITIAN>60Normal>=60The [facility] HospitalCompontiac general hospital on above:Performed By: #### BMP ####[facility] Cwfmtvmzca834[address] [place], [place] [address]Dr. Yilan ChangEGFR-NON AF KITTITIAN>60Normal>=60The [facility] Hospitalment on above:Performed By: #### BMP ####[facility] Pvczmhuqqs7801[address] [place], [place] [address]Dr.Yilan ChangGlucose [Mass/Vol]134 mg/dLCritically kpee04-505Jvh [facility] Hospitalment on above:Performed By: #### BMP ####[facility] Sdzovqtfqk15[address] [place], [place] [address]Dr. Yilan ChangPotassium [Moles/Vol]3.2 mmol/LCritically low3.5-5.1The [facility] HospitalComment on above:Performed By: #### BMP ####[facility] Tmvvktryjh3316[address] [place], [place] [address]Dr.Yilan ChangSodium [Moles/Vol]136 mmol/RUidbsi515-457Oii [facility] HospitalComment on above: Performed By: #### BMP ####[facility] Orbpcvfjji876[address] [place], [place] [address]Dr.Yilan ChangUrea nitrogen [Mass/Vol]10.0 mg/dLNormal 7.0-18.0The [facility] HospitalComment on above:Performed By: #### BMP ####[facility] Ehkwmlgvmy377[address] [place], [place] [address]Dr. Yilan ChangUrea nitrogen/Creatinine [Mass ratio]18.2 mg/mgNormalThe St. [facility] HospitalComment on above:Performed By: #### BMP ####[facility] Tghplnxztr73[address] [place], [place] [address]Dr.Yilan ChangAnion gap [Moles/Vol]4.6 mmol/LNormalThe St. [facility] HospitalComment on above:Performed By: #### BMP ####[facility] Fqhfrmikec75[address] [place], [place] [address]Dr.Yilan ChangCalcium [Mass/Vol]8.9 mg/dLNormal8.5-10.1The [facility] HospitalComment on above:Performed By: #### BMP ####[facility] Miyygsgnxe125[address] [place], [place] [address]Dr.Yilan ChangChloride [Moles/Vol]99 mmol/CCzovtz24-285QdbMercy Health Fairfield HospitalComment on above:Performed By: #### BMP ####[facility] Namikosjlz313[address] [place], [place] [address]Dr.Yilan ChangCO2 [Moles/Vol]33.2 mmol/LCritically high21.0-32.0The [facility] HospitalComment on above:Performed By: #### BMP ####[facility]. [facility] Gzhfzrjkbe[address] [place], [place] [address]Dr.Yilan ChangCreatinine [Mass/Vol]0.46 mg/dLCritically low0.55-1.02The St. Charles HospitalComment on above:Performed By: #### BMP ####[facility] Ossmfqhjfk0029[address] [place], [place] [address]Dr.Yilan ChangEGFR-AF KITTITIAN>60Normal>=60The [facility]. Charles HospitalComment on above:Performed By: #### BMP ####[facility] Frpvfdbgha463676 [address] [place], [place] [address]Dr.Yilan ChangEGFR-NON AF KITTITIAN>60Normal>=60The [facility]. [facility] HospitalComment on above:Performed By: #### BMP ####[facility] Jaulrvpnvk709[address] [place], [place] [address]Dr. Claudetteclaudette ChangGlucose [Mass/Vol]154 mg/dLCritically ftgt42-869FrzMercy Health Fairfield Hospital Comment on above:Performed By: #### BMP ####[facility] Gomtplpnou035[address] [place], [place] [address]Dr.Claudetteclaudette ChangPotassium [Moles/Vol]2.8 mmol/LCritically low3.5-5.1[facility] HospitalComment on above:Result Comment: repeatedPerformed By: #### BMP ####[facility] Cnuxkrroxh536[address] [place], [place] [address]Dr.Charlee ChangSodium [Moles/Vol]136 mmol/LNormal 136-145[facility] HospitalComment on above:Performed By: #### BMP ####[facility] Zsmdzqrobg144[address] [place], [place] [address]Dr.Charlee ChangUrea nitrogen [Mass/Vol]10.0 mg/dLNormal7.0-18.0The [facility] HospitalComment on above:Performed By: #### BMP ####[facility] Zzyyqqbnxn4930[address] [place], [place] [address]Dr.Claudetteclaudette ChangUrea nitrogen/Creatinine [Mass ratio] 21.7 mg/mgNormSCCI Hospital LimaComment on above:Performed By: #### BMP ####[facility] Zqdtzwqrlk830[address] [place], [place] [address]Dr. Charlee PearsonBLOOD GASES BTYon MODEBIPAPNormalMercy Health Fairfield Hospital Comment on above:Performed By: #### ABG ####[facility] Aasnblwmoj2369[address] [place], [place] [address]Dr.Charlee PearsonALLENS TESTPositiveNoProtestant Deaconess HospitalComment on above:Performed By: #### ABG ####[facility] Ejszpjpgtf548[address] [place], [place] [address]Dr.Charlee ChangBase excess Calc (Bld) [Moles/Vol]9.7 mmol/LCritically high-2.0-2.0[facility] Comment on above:Performed By: #### ABG ####[facility] Azncnmkokj[address] [place] [address]Dr.Charlee PearsonBIPAP RBAZFSEC94/8[facility] HospitalComment on above:Performed By: #### ABG ####[facility] Ppdxcteqsi6955 [place] [address]Dr.Yilan ChangCO2 [Moles/Vol] 68.7 mmol/LCritically high23.0-28.0The [facility] HospitalComment on above: Performed By: #### ABG ####[facility] Jfrxjappqo7[address] [place], [place] [address]Dr.Claudetteclaudette ChangCPProMedica Flower HospitalComment on above:Performed By: #### ABG ####[facility] Dksceewzzm3554[address] [place], [place] [address]Dr.Charlee DmrlwVCS080.00 %NormalThe [facility] Comment on above:Performed By: #### ABG ####[facility] Dmghnijhqq3989[address] [place], [place] [address]Dr.Claudetteclaudette ChangHCO3 (Bld) [Moles/Vol]32.1 mmol/LCritically high22.0-26.0The [facility] HospitalComment on above:Performed By: #### ABG ####[facility] Cizgooykjb847[address] [place], [place] [address]Dr.Charlee ChangLPMNormalThe St. Charles HospitalComment on above:Performed By: #### ABG ####[facility] Orqhndrrpn7[address] [place] [address]Dr.Charlee ChangMINUTE VOLUMEOhioHealth Berger HospitalComment on above: Performed By: #### ABG ####[facility] Rmxxblbfjj1458[address] [place], [place] [address]Dr.Charlee ChangOxygen (Bld) [Partial pressure]71.8 mm[Hg]Critically low80.0-100.0The [facility] HospitalComment on above:Performed By: #### ABG ####[facility] Popcniubvh8198 [place] [address]Dr.Yilan ChangOxygen saturation in Blood95.3 %Nyisbx14.0-100.0[facility] HospitalComment on above:Performed By: #### ABG ####[facility] Idcvrsaeyu9107 [place] [address]Dr.Claudettelan JlrraSIA009.0 mmHg Critically high35.0-45.0The [facility] HospitalComment on above:Performed By: #### ABG ####[facility] Hjxwmfqtay4499 [place] [address]Dr.Claudettethedacare medical center - [facility] rose ChangWexner Medical CenterComment on above:Performed By: #### ABG ####[facility] Kjolrymbht163[address] [place], [place] [address]Dr.Claudettelan ChangpH (Bld)7.447 [pH]Normal7.350-7.450[facility] Comment on above:Performed By: #### ABG ####[facility] Aboejhjaxd399[address] [place], [place] [address]Dr.[facility] ChangPIPNOhioHealth Berger Hospital Comment on above:Performed By: #### ABG ####[facility] Qmgttsgqkv4030[address] [place], [place] [address]Dr.[facility] Comment on above:Performed By: #### ABG ####[facility] Vxadzgtpgg947476 [address] [place], [place] [address]Dr.Yilan ChangPUNCTURE [facility] Memorial HospitalComment on above:Performed By: #### ABG ####[facility] Wbmakuesvn8101[address] [place], [place] [address]Dr.Charlee ChangRATENOhioHealth Berger HospitalComment on above:Performed By: #### ABG ####[facility] Jlslnakwzu2059[address] [place], [place] [address]Dr.Yilan ChangVENT MODENormal [facility] HospitalComment on above:Performed By: #### ABG ####[facility] Fauxkkrbbe0870[address] [place], [place] [address]Dr.Yilan ChangVT NormalThe St. [facility] HospitalComment on above:Performed By: #### ABG ####[facility] Oluehmqhms6255 [place] [address]Dr.Charlee Chang02 MODENASAL CANNULAOhioHealth Berger HospitalComment on above:Performed By: #### ABG ####[facility] Wsrgzajdxs8688 [place] [address]Dr. Charlee PearsonALLENS TESTPositiveOhioHealth Berger HospitalComment on above: Performed By: #### ABG ####[facility] Spqyerfuhz9739 [place] [address]Dr.Charlee PearsonBase excess Calc (Bld) [Moles/Vol]8.9 mmol/LCritically high-2.0-2.0The [facility] HospitalCompontiac general hospital on above:Performed By: #### ABG ####[facility] Jgshnnhdiu614[address] [place], [place] [address]Dr.Charlee PearsonBIPAP PRESSUREOhioHealth Berger HospitalComment on above: Performed By: #### ABG ####[facility] Ozcslymccx600[address] [place], [place] [address]Dr.Charlee ChangCO2 [Moles/Vol]65.3 mmol/LCritically high23.0-28.0The [facility] on above:Performed By: #### ABG ####[facility] Etqtdztwyo762[address] [place], [place] [address]Dr. Charlee ChangCPAPOhioHealth Berger HospitalCompontiac general hospital on above:Performed By: #### ABG ####[facility] Nzhxznidog0587[address] [place], [place] [address]Dr. Charlee XqxrsQDT8NtqqyzTsaOhioHealth Berger HospitalCompontiac general hospital on above:Performed By: #### ABG ####[facility] Frtndtvhse6755[address] [place], [place] [address]Dr. Charlee ChangHCO3 (Bld) [Moles/Vol]31.7 mmol/LCritically high22.0-26.0The [facility] HospitalCompontiac general hospital on above:Performed By: #### ABG ####[facility] Qrxsfzhloa7524 [place] [address]Dr.Claudetteclaudette PearsonDrlbgHDK7MlqmppQylProtestant Deaconess HospitalComment on above:Performed By: #### ABG ####[facility] Heksjtsxta467[address] [place], [place] [address]Dr.Charlee ChangMINUTE VOLUME NormalThe [facility] HospitalComment on above:Performed By: #### ABG ####[facility] Uqqcngpnur4822[address] [place], [place] [address]Dr.Charlee PearsonOxygen (Bld) [Partial pressure]51.2 mm[Hg]Critically low80.0-100.0The [facility] HospitalComment on above:Performed By: #### ABG ####[facility] Xpolitselz1418[address] [place], [place] [address]Dr.Charlee PearsonOxygen saturation in Blood89.9 %Critically low95.0-100.0The [facility] HospitalComment on above:Performed By: #### ABG ####[facility] Gypekylbsm157[address] [place], [place] [address]Dr.Charlee PearsonPCO242.5 gmBlEfmrad48.0-45.0The [facility] HospitalComment on above:Performed By: #### ABG ####[facility] Dxnjkzcrwk919[address] [place], [place] [address]Dr.Charlee PearsonPEEPOhioHealth Berger HospitalComment on above:Performed By: #### ABG ####[facility] Ximdaicrgr324[address] [place], [place] [address]Dr.Charlee PearsonpH (Bld)7.489 [pH]Critically high7.350-7.450The [facility]. [facility] HospitalComment on above:Performed By: #### ABG ####[facility] Swkkbswgko635[address] [place], [place] [address]Dr.Charlee ChangPIPNormalThe St. [facility] HospitalComment on above:Performed By: #### ABG ####[facility] Gsvvzwpftx385[address] [place], [place] [address]Dr.Charlee PearsonPSMain Campus Medical Center HospitalComment on above:Performed By: #### ABG ####[facility] Icwjrqmkyu3[address] [place] [address]Dr.Claudettelan ChangPUNCTURE SITEGalion Community HospitalComment on above: Performed By: #### ABG ####[facility] Yynunqyelp0940 [place] [address]Dr.Yilan ChangRATENormalMercy Health Fairfield HospitalComment on above:Performed By: #### ABG ####[facility] Krgevfmffx2934 [place] [address]Dr.[facility] Comment on above:Performed By: #### ABG ####[facility] Gyuwrwkikd7665 [place] [address]Dr.[facility] Comment on above:Performed By: #### ABG ####[facility] Ihsrylcwwe1830 [place] [address]Dr.Charlee PearsonCBC W MANUAL DIFFon 03-22-2022 ATYPICAL LYMPH #NormalMercy Health Fairfield HospitalComment on above:Performed By: #### CBCMAN ####[facility] Zhavkxgjke0495 [place] [address]Dr. Yilan ChangATYPICAL LYMPH %NormalMercy Health Fairfield HospitalCompontiac general hospital on above: Performed By: #### CBCMAN ####[facility] Eiciquudvm[address] [place], [place] [address]Dr. Yilan ChangBAND #1.3 103/ulCritically high0.0-0.[address] [facility] HospitalComment on above:Performed By: #### CBCMAN ####[facility] Jyovjnhkid4945 [place] [address]Dr. Yilan ChangBAND %4 %Normal0-5The [facility] HospitalComment on above:Performed By: #### CBCMAN ####[facility] Mzpujegmtq668[address] [place], [place] [address]Dr. claudette PearsonBASOM #0.00 103/ulNormal0.00-0.10The [facility] HospitalComment on above:Performed By: #### CBCMAN ####[facility] Lvvoijnjbv2753 [place] [address]Dr. Yilan ChangBASOM %0.0 %Critically low0.2-2.0The [facility] HospitalComment on above:Performed By: #### CBCMAN ####[facility] Ivvidanmdl0305 [place] [address]Dr. Yilan ChangBLAST #NormalThe [facility] HospitalComment on above:Performed By: #### CBCMAN ####[facility] Snnuclpbac545[address] [place], [place] [address]Dr. Yilan ChangBLAST %NormalThe St. [facility] HospitalComment on above:Performed By: #### CBCMAN ####[facility] Nxzdgofjyi186[address] [place], [place] [address]Dr. Yilan ChangCORRECTED WBCNormal4.0-11.0The [facility] HospitalComment on above:Performed By: #### CBCMAN ####[facility] Guthqmghoq9632[address] [place], [place] [address]Dr. Yilan ChangEOS #0.00 103/ulNormal0.00-0.70The [facility] HospitalComment on above:Performed By: #### CBCMAN ####[facility] Hnufyjmcyb700[address] [place], [place] [address]Dr. Yilan ChangEOS% 0.0 %Critically low0.9-7.0The [facility] HospitalComment on above:Performed By: #### CBCMAN ####[facility] Xanducgdxa8210[address] [place], [place] [address]Dr. Yilan VkqxqUHE78.7 %Critically low36.0-48.0The [facility] HospitalComment on above:Performed By: #### CBCMAN ####[facility] Ihbcahsmyx187[address] [place], [place] [address]Dr. Yilan KikshYHC08.8 g/dlCritically low 12.0-16.0The [facility] HospitalComment on above:Performed By: #### CBCMAN ####[facility] Smdybpoisz7315[address] [place], [place] [address]Dr. Yilan ChangLYMPHM #0.34 103/ulCritically low1.20-3.80[facility] Comment on above:Performed By: #### CBCJARON ####[facility] Pkxgaqxnrv7703 [place] [address]Dr. Charlee PearsonLYMPHM%1.0 %Critically low 20.5-60.0The [facility] HospitalComment on above:Performed By: #### CBCJARON ####[facility] Nyuztlgxxj6329 [place] [address]Dr. Charlee PearsonMCH31.7 unQidpit66.7-34.0The [facility] HospitalComment on above: Performed By: #### CBCJARON ####[facility] Dzflaoncsg80[address] [place], [place] [address]Dr. Charlee PearsonMCHC35.0 g/rvNbkurx22.9-35.2The [facility] HospitalComment on above:Performed By: #### CBCJARON ####[facility] Whdakdkhbc8659[address] [place], [place] [address]Dr. Charlee PearsonV 90.6 rJHsehuf86.0-99.0The [facility] HospitalComment on above:Performed By: #### CBCJARON ####[facility] Gqdqzpogim1864[address] [place], [place] [address]Dr. Yilan ChangMETAMYELOCYTE #NormalThe St. [facility] HospitalComment on above: Performed By: #### CBCJARON ####[facility] Hhuvuepqkj550[address] [place], [place] [address]Dr. Claudettelan ChangMETAMYELOCYTE %NormalThe St. [facility] HospitalComment on above:Performed By: #### CBCJARON ####[facility] Qzmbshqldx4865[address] [place], [place] [address]Dr. Claudettelan ChangMONOM#2.02 103/ulCritically high0.30-0.80The [facility] HospitalComment on above:Performed By: #### CBCJARON ####[facility] Zbytdhqqaw4340[address] [place], [place] [address]Dr. lan ChangMONOM%6.0 %Normal1.7-12.0The [facility] HospitalComment on above:Performed By: #### CBCJARON ####[facility] Puwinkxnlx5094 [place] [address]Dr. Charlee ChangMPV9.2 fLCritically low9.5-13.5The [facility] HospitalComment on above:Performed By: #### CBCMAN ####[facility] Yqgdkpollg2960 [place] [address]Dr. Charlee Pearson MYELOCYTE #NormalThe [facility] HospitalComment on above:Performed By: #### CBCMAN ####[facility] Takhefwupe0463[address] [place], [place] [address]Dr. Charlee ChangMYELOCYTE %NormalThe [facility] HospitalComment on above:Performed By: #### CBCMAN ####[facility] Yvmzfjqnrq1079[address] [place], [place] [address]Dr. Charlee ChangNRBCNormalThe St. [facility] HospitalComment on above:Performed By: #### CBCMAN ####[facility] Ejcbazbuvt377[address] [place], [place] [address]Dr. Charlee NknwzWCK136 103/oeZybnus824-188Mkj St. [facility] HospitalComment on above:Performed By: #### CBCMAN ####[facility] Nsakcfmzxg360476 [address] [place], [place] [address]Dr. Charlee ChangRBC3.72 106/ulCritically low 4.20-5.40The [facility] HospitalComment on above:Performed By: #### CBCMAN ####[facility] Voagqiuxaf5522[address] [place], [place] [address]Dr. Charlee DgktrEEF10.8 %Euzjgm53.0-15.0The [facility] HospitalComment on above: Performed By: #### CBCMAN ####[facility] Vfrsbvqisp575[address] [place], [place] [address]Dr. Charlee PearsonSEG #29.99 103/ulCritically high 1.40-6.50The [facility] HospitalComment on above:Performed By: #### CBCMAN ####[facility] Dkdewvulpv147[address] [place], [place] [address]Dr. Claudettelan ChangSEG %89.0 %Critically high43.0-75.0The [facility] HospitalComment on above:Performed By: #### CBCMAN ####[facility] Qmlkjqpfgc5980 [place] [address]Dr. Yilan CzsezKYU89.7 103/ulCritically high4.0-11.[address] [facility] HospitalCompontiac general hospital on above:Performed By: #### CBCMAN ####[facility] Hjffrgiypw3842 [place] [address]Dr. Yilan ChangGRAM STAINon [id number] ORGANISMS OBSERVEDCleveland Clinic South Pointe Hospital on above:Performed By: #### GSTAIN ####[facility] Ujasoycihb1662 [place] [address]Dr. Yilan ChangDIPHTHEROIDSOhioHealth Berger HospitalComment on above:Performed By: #### GSTAIN ####[facility] Lslfiquftp6946[address] [place], [place] [address]Dr. Yilan Pearson EPITHELIALSOhioHealth Berger HospitalComment on above:Performed By: #### GSTAIN ####[facility] Orotimcbcm6835 [place] [address]Dr. Yilan ChangFUNGAL ELEMENTSOhioHealth Berger HospitalComment on above:Performed By: #### GSTAIN ####[facility] Arqkohqizb4[address] [place], [place] [address]Dr. Yilan ChangGRAM NEG [facility] HospitalComment on above:Performed By: #### GSTAIN ####[facility] Phncmixovj9955 [place] [address]Dr. Yilan ChangGRAM NEG DIPPLOCOCCIMain Campus Medical Center HospitalComment on above:Performed By: #### GSTAIN ####[facility] Cukvukjdfp3223 [place] [address]Dr. Yilan ChangGRAM POS BACILLIMain Campus Medical Center HospitalComment on above:Performed By: #### GSTAIN ####[facility] Iaelsqhfbj3413[address] [place], [place] [address]Dr. Yilan ChangGRAM POSITIVE COCCINoProtestant Deaconess HospitalComment on above: Performed By: #### GSTAIN ####[facility] Hqpbihekpn5794 [place] [address]Dr. Yilan ChangGRAM STAIN SOURCERt Bethesda North HospitalComment on above:Performed By: #### GSTAIN ####[facility] Iqfvglaljy879[address] [place], [place] [address]Dr. Yilan ChangGRAM STAIN SOURCELt [facility] HospitalComment on above:Performed By: #### GSTAIN ####[facility] Klhzlksrnp9469[address] [place], [place] [address]Dr. Yilan ChangGS_DIPParma Community General HospitalComment on above: Performed By: #### GSTAIN ####[facility] Lspocqvign9900[address] [place], [place] [address]Dr. Yilan ChangWBCFEMetroHealth Main Campus Medical Center on above:Performed By: #### GSTAIN ####[facility] Civkyfepgm6279[address] [place], [place] [address]Dr. Yilan ChangWBCRARENormalThe St. [facility] HospitalComment on above:Performed By: #### GSTAIN ####[facility] Rnjjmhjwjs7844[address] [place], [place] [address]Dr. Yilan ChangPROF CHEM 8 (BAS METB)on [id number] gap [Moles/Vol]9.8 mmol/LNormalKettering Health Hamilton on above:Performed By: #### BMP ####[facility] Nbppjxsvsk212[address] [place], [place] [address]Dr.Yilan ChangCalcium [Mass/Vol]9.5 mg/dLNormal8.5-10.1[facility] HospitalComment on above:Performed By: #### BMP ####[facility] Xnrwnxcwty935[address] [place], [place] [address]Dr.Yilan ChangChloride [Moles/Vol]98 mmol/DYhlvvx95-927Uis St. [facility] HospitalComment on above:Performed By: #### BMP ####[facility] Tjwycanpow817[address] [place], [place] [address]Dr.Yilan ChangCO2 [Moles/Vol] 31.2 mmol/TFeyuub80.0-32.0The [facility] HospitalComment on above:Performed By: #### BMP ####[facility] Xkyabtpsga4688 [place] [address]Dr.Yilan ChangCreatinine [Mass/Vol]0.51 mg/dLCritically low0.55-1.02The [facility] HospitalComment on above:Performed By: #### BMP ####[facility] Llhuoorycy6872 [place] [address]Dr.Yilan ChangEGFR-AF KITTITIAN>60Normal>=60The [facility] HospitalComment on above:Performed By: #### BMP ####[facility] Gudrkvwauc[address] [place], [place] [address]Dr. Yilan ChangEGFR-NON AF KITTITIAN>60Normal>=60[facility] HospitalCompontiac general hospital on above:Performed By: #### BMP ####[facility] Mtycdyujiw4999[address] [place], [place] [address]Dr.Yilan ChangGlucose [Mass/Vol]144 mg/dLCritically ztny92-301Ply [facility] on above:Performed By: #### BMP ####[facility] Zngdodmeaw0844[address] [place], [place] [address]Dr. Yilan ChangPotassium [Moles/Vol]3.0 mmol/LCritically low3.5-5.1The [facility] on above:Performed By: #### BMP ####[facility] Awzpbdwzha608[address] [place], [place] [address]Dr.Yilan ChangSodium [Moles/Vol]136 mmol/NLuxbbu167-047Rqj [facility] on above: Performed By: #### BMP ####[facility] Fidscrhkga0559[address] [place], [place] [address]Dr.Yilan ChangUrea nitrogen [Mass/Vol]8.0 mg/dLNormal 7.0-18.0The [facility] on above:Performed By: #### BMP ####[facility] Ybcepxzkfk489[address] [place], [place] [address]Dr. Yilan ChangUrea nitrogen/Creatinine [Mass ratio]15.7 mg/mgNormalThe St. [facility] HospitalComment on above:Performed By: #### BMP ####[facility] Qeofuhrjns0820[address] [place], [place] [address]Dr.Charlee PearsonCBC AUTO DIFFon [id number] #0.1 103/ulNormal0.0-0.1The [facility] HospitalComment on above: Performed By: #### CBC ####[facility] Ykzxqfwqdx817[address] [place], [place] [address]Dr.Charlee ChangBasophils/100 WBC (Bld)0.2 %Normal 0.2-2.0The [facility] HospitalComment on above:Performed By: #### CBC ####[facility] Fsjxkgqitn5580[address] [place], [place] [address]Dr.Yilan ChangEO # 0.1 103/ulNormal0.0-0.7The [facility] HospitalComment on above:Performed By: #### CBC ####[facility] Coycacfswa2312[address] [place], [place] [address]Dr. Charlee ChangEosinophils/100 WBC (Bld)0.4 %Critically low0.9-7.0The [facility] HospitalComment on above:Performed By: #### CBC ####[facility] Ktbllvkasv6099[address] [place], [place] [address]Dr.Charlee ChangErythrocyte distribution width (RBC) [Ratio]12.7 %Xxxoqt68.0-15.0[facility] Comment on above:Performed By: #### CBC ####[facility] Ueyfmztoor725[address] [place], [place] [address]Dr.Charlee ChangHematocrit (Bld) [Volume fraction]34.2 %Critically low36.0-48.0The [facility] HospitalComment on above: Performed By: #### CBC ####[facility] Mewonmjxbr1312[address] [place], [place] [address]Dr.Charlee ChangHemoglobin (Bld) [Mass/Vol]11.9 g/dL Critically low12.0-16.0The [facility] HospitalComment on above:Performed By: #### CBC ####[facility] Kivxxrbarr5939 [place] [address]Dr. Charlee PearsonIG #0.74 10e3/ulCritically high0.00-0.03The [facility] HospitalComment on above:Performed By: #### CBC ####[facility] Myrabynszd8018 [place] [address]Dr.Charlee PearsonIG %2.8 %Critically high0.0-0.5The [facility] HospitalComment on above:Performed By: #### CBC ####[facility] Iwppevlrjo7299 [place] [address]Dr.Charlee PearsonLYMPH #0.4 103/ulCritically low1.2-3.8The [facility] HospitalComment on above:Performed By: #### CBC ####[facility] Ilehulnzxz4367 [place] [address]Dr.Charlee PearsonLymphocytes/100 WBC (Bld)1.3 %Critically low20.5-60.0The [facility] HospitalComment on above:Performed By: #### CBC ####[facility] Xjnwugddqt738[address] [place], [place] [address]Dr.Charlee PearsonMANUAL DIFF REQ NONormalThe St. [facility] HospitalComment on above:Performed By: #### CBC ####[facility] Thunyrhkba64[address] [place], [place] [address]Dr. Charlee PearsonH (RBC) [Entitic mass]31.5 jsUonmru58.7-34.0The [facility] Comment on above:Performed By: #### CBC ####[facility] Rvaaekswam468[address] [place], [place] [address]Dr.Charlee PearsonMCHC (RBC) [Mass/Vol]34.8 g/dL Rulwhi43.9-35.2The [facility] HospitalComment on above:Performed By: #### CBC ####[facility] Wbqlariemn0725[address] [place], [place] [address]Dr. Charlee PearsonMCV (RBC) [Entitic vol]90.5 [address]UJuvwgm53.0-99.0[facility] Comment on above:Performed By: #### CBC ####[facility] Inucgfpcee46[address] [place] [address]Dr.Charlee PearsonMONO #1.4 103/ulCritically high0.3-0.8The [facility] HospitalComment on above:Performed By: #### CBC ####[facility] Cqgyqumiul5366 [place] [address]Dr. Claudettelan ChangMonocytes/100 WBC (Bld)5.3 %Normal1.7-12.0The [facility] Comment on above:Performed By: #### CBC ####[facility] Ofwoxamelf9359 [place] [address]Dr.Charlee PearsonNEUT #23.8 103/ulCritically high1.4-6.5The [facility] HospitalComment on above:Performed By: #### CBC ####[facility] Ukxhnevwpx8034 [place] [address]Dr. Yilan ChangNeutrophils/100 WBC (Bld)90.0 %Critically high43.0-75.0The [facility] HospitalComment on above:Performed By: #### CBC ####[facility] Ytsqkwoqjn0593 [place] [address]Dr.Charlee PearsonPlatelet mean volume (Bld) [Entitic vol]9.1 fLCritically low9.5-13.5The [facility] Comment on above:Performed By: #### CBC ####[facility] Cgmxbeswlm8719 [place] [address]Dr.Claudettelan VylbeVAZ395 103/whBdfjzl553-634Cap St. [facility] HospitalComment on above:Performed By: #### CBC ####[facility] [address]avxnrkdr[address] [place] [address]Dr.Charlee ChangRBC3.78 106/ul Critically low4.20-5.40The St. Charles HospitalComment on above:Performed By: #### CBC ####[facility] Bsynidlhpv350[address] [place], [place] [address]Dr. Claudettelan FlxeeSVJ11.4 103/ulCritically high4.0-11.0The [facility]. Charles HospitalComment on above:Performed By: #### CBC ####[facility] Rcacmkktbh9189[address] [place], [place] [address]Dr.Yilan ChangCT CHEST W CONon 12-88-6599MM CHEST W CONNormalThe St. Charles HospitalPROF CHEM 8 (BAS METB)on 13-31-8516Qdpvi gap [Moles/Vol]11.2 mmol/LNormalThe St. Charles HospitalComment on above:Performed By: #### BMP ####[facility] Xgxxwtooog9865[address] [place], [place] [address]Dr.Yilan ChangCalcium [Mass/Vol]9.5 mg/dLNormal8.5-10.1The [facility]. Charles HospitalComment on above:Performed By: #### BMP ####[facility] Dwsfgvbhnu4760[address] [place], [place] [address]Dr.Yilan ChangChloride [Moles/Vol]99 mmol/UPwhfdi41-852Rxt St. Charles HospitalComment on above:Performed By: #### BMP ####[facility] Cbhcvuddpn8616[address] [place], [place] [address]Dr.Yilan ChangCO2 [Moles/Vol]29.5 mmol/MPlurjz68.0-32.0The [facility] HospitalComment on above:Performed By: #### BMP ####[facility] Ooynpxnwyv745[address] [place], [place] [address]Dr.Yilan ChangCreatinine [Mass/Vol]0.61 mg/dLNormal0.55-1.02The [facility] HospitalComment on above: Performed By: #### BMP ####[facility] Jrffogwxzu000376 [address] [place], [place] [address]Dr.Yilan ChangEGFR-AF KITTITIAN>60Normal>=60The [facility] HospitalComment on above:Performed By: #### BMP ####[facility] Ssetulsmol614[address] [place], [place] [address]Dr.Yilan ChangEGFR-NON AF KITTITIAN>60Normal>=60The [facility] HospitalComment on above:Performed By: #### BMP ####[facility] Zwjvhgrnpt438[address] [place], [place] [address]Dr. Yilan ChangGlucose [Mass/Vol]162 mg/dLCritically qjio67-250Oeu [facility] Comment on above:Performed By: #### BMP ####[facility] Bngsqwkgts2149[address] [place], [place] [address]Dr.Charlee ChangPotassium [Moles/Vol]2.7 mmol/LCritically low3.5-5.1The [facility] HospitalComment on above:Performed By: #### BMP ####[facility] Ahzxbiuble024276 [address] [place], [place] [address]Dr.Yilan ChangSodium [Moles/Vol]137 mmol/MVadhgl557-127Avi St. [facility] HospitalComment on above:Performed By: #### BMP ####[facility] Huvhiajtgt6948[address] [place], [place] [address]Dr.Claudettelan ChangUrea nitrogen [Mass/Vol]7.0 mg/dLNormal7.0-18.0The [facility] HospitalComment on above:Performed By: #### BMP ####[facility] Opjpfpjmpg155276 [address] [place], [place] [address]Dr.Yilan ChangUrea nitrogen/Creatinine [Mass ratio]11.5 mg/mgNormalThe St. Charles HospitalComment on above:Performed By: #### BMP ####[facility] Jarxvsybup806[address] [place], [place] [address]Dr.Charlee ChangXR CHEST 2 Von 93-51-5358TQ CHEST 2 VNormalThe [facility] W MANUAL DIFFon 03-20-2022 ATYPICAL LYMPH #NormalThe St. Charles HospitalComment on above:Performed By: #### CBCMAN ####[facility] Dpiezfpsvq0230[address] [place], [place] [address]Dr. Yilan ChangATYPICAL LYMPH %NormalThe [facility] HospitalCompontiac general hospital on above: Performed By: #### CBCMAN ####[facility] Doodgkznrd959[address] [place], [place] [address]Dr. Claudettelan ChangBAND #1.1 103/ulCritically high0.0-0.[address] [facility] HospitalComment on above:Performed By: #### CBCMAN ####[facility] Ydowxsvpai[address] [place] [address]Dr. Yilan ChangBAND %5 %Normal0-5The [facility] HospitalComment on above:Performed By: #### CBCMAN ####[facility] Kxjbfpzikz186[address] [place], [place] [address]Dr. Yilan ChangBASOM #0.00 103/ulNormal0.00-0.10The [facility] HospitalComment on above:Performed By: #### CBCMAN ####[facility] Hxtuasoxox16[address] [place], [place] [address]Dr. Yilan ChangBASOM %0.0 %Critically low0.2-2.0The [facility] HospitalComment on above:Performed By: #### CBCMAN ####[facility] Qaowftloid907[address] [place], [place] [address]Dr. Yilan ChangBLAST #NormalThe [facility] HospitalComment on above:Performed By: #### CBCMAN ####[facility] Eysllhntrx367[address] [place], [place] [address]Dr. Yilan ChangBLAST %NormalThe [facility] HospitalComment on above:Performed By: #### CBCMAN ####[facility] Hwixueyzmq055[address] [place], [place] [address]Dr. Yilan ChangCORRECTED WBCNormal4.0-11.0The St. [facility] HospitalComment on above:Performed By: #### CBCMAN ####[facility] Rppweaakbz784[address] [place], [place] [address]Dr. Yilan ChangEOS #0.00 103/ulNormal0.00-0.70The [facility] HospitalComment on above:Performed By: #### CBCMAN ####[facility] Dxioaodvcp480276 [address] [place], [place] [address]Dr. Yilan ChangEOS% 0.0 %Critically low0.9-7.0The [facility] HospitalComment on above:Performed By: #### CBCMAN ####[facility] Ftzrryqndh029[address] [place], [place] [address]Dr. Yilan ZumjpIFC51.0 %Critically low36.0-48.0The [facility] HospitalComment on above:Performed By: #### CBCMAN ####[facility] Rngbdgqjae54[address] [place] [address]Dr. Charlee PearsonHGB12.1 g/zhNqlobo64.0-16.0The [facility] HospitalComment on above:Performed By: #### CBCJARON ####[facility] Kwtqtzcfpq564[address] [place], [place] [address]Dr. Charlee Pearson LYMPHM #0.46 103/ulCritically low1.20-3.80The [facility] HospitalComment on above: Performed By: #### CBCJARON ####[facility] Wuqesftdbz2139[address] [place], [place] [address]Dr. Claudettelan MichelLYMPHM%2.0 %Critically low20.5-60.0The [facility] HospitalComment on above:Performed By: #### CBCJARON ####[facility] Rdwadhcbau8475[address] [place], [place] [address]Dr. Charlee PearsonMCH 31.6 sdRuautb70.7-34.0The [facility] HospitalComment on above:Performed By: #### CBCJARON ####[facility] Fqbadbsvsv350[address] [place], [place] [address]Dr. Charlee PearsonMCHC34.6 g/ryYltwws66.9-35.2The [facility] HospitalComment on above:Performed By: #### CBCJARON ####[facility] Rjvigzpvtt0137[address] [place], [place] [address]Dr. Charlee PearsonMCV91.4 lAOcsjjd71.0-99.0The [facility] HospitalComment on above:Performed By: #### CBCJARON ####[facility] Qnwmkqujzq7724[address] [place], [place] [address]Dr. Yilan ChangMETAMYELOCYTE #NormalThe [facility] HospitalCompontiac general hospital on above:Performed By: #### CBCJARON ####[facility] Squieebivq915[address] [place], [place] [address]Dr. Claudettelan ChangMETAMYELOCYTE %NormalThe St. [facility] HospitalComment on above:Performed By: #### CBCJARON ####[facility] Txkxpvcuoy238[address] [place], [place] [address]Dr. Yilan ChangMONOM#0.23 103/ulCritically low0.30-0.80The [facility] HospitalComment on above:Performed By: #### CBCJARON ####[facility] Dajlfaenpu[address] [place] [address]Dr. Yilan ChangMONOM%1.0 % Critically low1.7-12.0[facility] HospitalComment on above:Performed By: #### CBCJARON ####[facility] Rlcuwnhknt37[address] [place] [address]Dr. Yilan ChangMPV9.5 fLNormal9.5-13.5The [facility] HospitalComment on above:Performed By: #### CBCJARON ####[facility] Xmsxwigiuy57[address] [place], [place] [address]Dr. Yilan ChangMYELOCYTE #NormalMer[facility] Health [facility] Hospital Comment on above:Performed By: #### CBCJARON ####[facility] Pcnjtjmfww9314[address] [place], [place] [address]Dr. Yilan ChangMYELOCYTE %NormalThe [facility]. [facility] HospitalComment on above:Performed By: #### CBCJARON ####[facility] Kqulvheegy[address] [place] [address]Dr. Yilan ChangNRBCNormalThOhioHealth Pickerington Methodist HospitalComment on above:Performed By: #### CBCJARON ####[facility] Tjaylmwrle[address] [place] [address]Dr. Yilan ChangPLT 275 103/nxQuuwue702-458Bav St[facility] HospitalComment on above:Performed By: #### CBCJARON ####[facility] Ixnkpcraae14[address] [place] [address]Dr. Yilan ChangRBC3.83 106/ulCritically low4.20-5.40The [facility] Comment on above:Performed By: #### CBCJARON ####[facility] Qrwqmdgjxn43[address] [place] [address]Dr. Yilan OintwOAJ72.5 %Hgnpam57.0-15.0[facility] HospitalComment on above:Performed By: #### CBCMAN ####[facility] Qqaboweiha[address] [place] [address]Dr. Charlee PearsonSEG # 20.98 103/ulCritically high1.40-6.50The [facility] HospitalComment on above: Performed By: #### CBCMAN ####[facility] Grcqtjbouf4[address] [place] [address]Dr. Charlee PearsonSEG %92.0 %Critically high43.0-75.0The [facility] HospitalComment on above:Performed By: #### CBCMAN ####[facility] Hsbspzbylp7[address] [place] [address]Dr. Charlee ChangWBC 22.8 103/ulCritically high4.0-11.0The [facility] HospitalComment on above: Performed By: #### CBCMAN ####[facility] Kmwtpsipix65[address] [place], [place] [address]Dr. Charlee ChangPROF CHEM 8 (BAS METB)on 03-20-2022 Anion gap [Moles/Vol]11.7 mmol/LNormalThe St. [facility] HospitalComment on above: Performed By: #### BMP ####[facility] Yebwfkpjjm1449[address] [place], [place] [address]Dr.Yiclaudette ChangCalcium [Mass/Vol]9.4 mg/dLNormal 8.5-10.1The [facility] HospitalComment on above:Performed By: #### BMP ####[facility] Lpmfvkgdia3025[address] [place], [place] [address]Dr. Yilan ChangChloride [Moles/Vol]99 mmol/NTaiimn37-854Awv St[facility] HospitalComment on above:Performed By: #### BMP ####[facility] Wkettmfuto9[address] [place] [address]Dr.Yilan ChangCO2 [Moles/Vol]27.4 mmol/LNormal 21.0-32.0The [facility] HospitalComment on above:Performed By: #### BMP ####[facility] Ritmyirtqg3050[address] [place], [place] [address]Dr. Yilan ChangCreatinine [Mass/Vol]0.55 mg/dLNormal0.55-1.02The [facility] Comment on above:Performed By: #### BMP ####[facility] Wizoygyrna37[address] [place] [address]Dr.Yilan ChangEGFR-AF KITTITIAN>60Normal>=[address] [facility] HospitalComment on above:Performed By: #### BMP ####[facility] Xgncykucec1933[address] [place], [place] [address]Dr.Yilan ChangEGFR- NON AF KITTITIAN>60Normal>=60The [facility] HospitalComment on above:Performed By: #### BMP ####[facility] Snugkshcip6970[address] [place], [place] [address]Dr.Yilan ChangGlucose [Mass/Vol]156 mg/dLCritically ubdw80-179Bnw [facility] HospitalComment on above:Performed By: #### BMP ####[facility] Coacvauptj218[address] [place], [place] [address]Dr.Yilan ChangPotassium [Moles/Vol]3.1 mmol/LCritically low3.5-5.1The [facility] HospitalComment on above: Performed By: #### BMP ####[facility] Qjggfetsyp3240[address] [place], [place] [address]Dr.Yilan ChangSodium [Moles/Vol]135 mmol/LCritically ibk798-623Fwv [facility] HospitalComment on above:Performed By: #### BMP ####[facility] Opgarpnybj0824[address] [place], [place] [address]Dr. Yilan ChangUrea nitrogen [Mass/Vol]5.0 mg/dLCritically low7.0-18.0The [facility] HospitalComment on above:Performed By: #### BMP ####[facility] Pzsodfsjnx9548[address] [place], [place] [address]Dr.Yilan ChangUrea nitrogen/Creatinine [Mass ratio]9.1 mg/mgNormalThe St. [facility] HospitalCompontiac general hospital on above:Performed By: #### BMP ####[facility] Vxjbvpvgaa635[address] [place], [place] [address]Dr.Yilan ChangCBC AUTO DIFFon [id number] #0.0 103/ulNormal0.0-0.1The [facility] HospitalComment on above:Performed By: #### CBC ####[facility] Tpkykwjnnk083[address] [place], [place] [address]Dr. Charlee ChangBasophils/100 WBC (Bld)0.1 %Critically low0.2-2.0The [facility] HospitalComment on above:Performed By: #### CBC ####[facility] Uwhitdytvs713[address] [place], [place] [address]Dr.Claudettelan ChangEO #0.0 103/ul Normal0.0-0.7The [facility] HospitalComment on above:Performed By: #### CBC ####[facility] Taqllujazk498876 [address] [place], [place] [address]Dr. Charlee ChangEosinophils/100 WBC (Bld)0.0 %Critically low0.9-7.0The [facility] HospitalComment on above:Performed By: #### CBC ####[facility] Ebicswodxi944276 [address] [place], [place] [address]Dr.Charlee ChangErythrocyte distribution width (RBC) [Ratio]12.9 %Lnxhbo89.0-15.0The [facility] Comment on above:Performed By: #### CBC ####[facility] Lhbxctzjux7280[address] [place], [place] [address]Dr.Charlee ChangHematocrit (Bld) [Volume fraction]35.9 %Critically low36.0-48.0The [facility] HospitalComment on above: Performed By: #### CBC ####[facility] Owvhusjmpl507[address] [place], [place] [address]Dr.Charlee ChangHemoglobin (Bld) [Mass/Vol]12.0 g/dL Jgmtsy44.0-16.0The [facility] HospitalComment on above:Performed By: #### CBC ####[facility] Kbiidxgxee324676 [address] [place], [place] [address]Dr. Charlee ChangIG #0.41 10e3/ulCritically high0.00-0.03The [facility] HospitalComment on above:Performed By: #### CBC ####[facility] Wxztbkroyb846[address] [place], [place] [address]Dr.Charlee PearsonIG %1.8 %Critically high0.0-0.5The [facility] HospitalComment on above:Performed By: #### CBC ####[facility] Rtmlhlnpmp310[address] [place], [place] [address]Dr.Charlee PearsonLYMPH #0.4 103/ulCritically low1.2-3.8The [facility] HospitalComment on above:Performed By: #### CBC ####[facility] Iaynpvmtiq045176 [address] [place], [place] [address]Dr.Charlee PearsonLymphocytes/100 WBC (Bld)1.9 %Critically low20.5-60.0The [facility] HospitalComment on above:Performed By: #### CBC ####[facility] Qmzlcfigwo998[address] [place], [place] [address]Dr.Charlee PearsonMANUAL DIFF REQ NONormalThe St. [facility] HospitalComment on above:Performed By: #### CBC ####[facility] Rqfpksmsjd634[address] [place], [place] [address]Dr. Charlee PearsonST. [facility] (RBC) [Entitic mass]31.4 jgKilohs52.7-34.0The [facility] Comment on above:Performed By: #### CBC ####[facility] Lxviziwtcd166276 [address] [place], [place] [address]Dr.Charlee PearsonHC (RBC) [Mass/Vol]33.4 g/dL Qcmdnj36.9-35.2The [facility] HospitalComment on above:Performed By: #### CBC ####[facility] Wvvxxpaahs816[address] [place], [place] [address]Dr. Charlee PearsonV (RBC) [Entitic vol]94.0 cUVrxbfs28.0-99.0The [facility] Comment on above:Performed By: #### CBC ####[facility] Sqwkbzbohv5095[address] [place], [place] [address]Dr.Charlee PearsonMONO #0.4 103/ulNormal0.3-0.[address] [facility] HospitalComment on above:Performed By: #### CBC ####[facility] Hqtqpuwbxc79[address] [place] [address]Dr.Charlee Pearson Monocytes/100 WBC (Bld)1.8 %Normal1.7-12.0The [facility] HospitalComment on above: Performed By: #### CBC ####[facility] Xsikodgbzp7603 [place] [address]Dr.Charlee PearsonNEUT #21.1 103/ulCritically high1.4-6.[address] [facility] HospitalComment on above:Performed By: #### CBC ####[facility] Qlaaasyovs302[address] [place], [place] [address]Dr.Charlee Pearson Neutrophils/100 WBC (Bld)94.4 %Critically high43.0-75.0The [facility] Comment on above:Performed By: #### CBC ####[facility] Wblkgtjiav3635[address] [place], [place] [address]Dr.Charlee PearsonPlatelet mean volume (Bld) [Entitic vol]9.0 fLCritically low9.5-13.5The [facility] HospitalComment on above: Performed By: #### CBC ####[facility] Mdbqydwbld0622[address] [place], [place] [address]Dr.Charlee PearsonPLT218 103/fzDfnnis438-428Ald [facility] HospitalComment on above:Performed By: #### CBC ####[facility] Smsihsgxau3455[address] [place], [place] [address]Dr.Charlee PearsonRBC3.82 106/ul Critically low4.20-5.40The [facility] HospitalComment on above:Performed By: #### CBC ####[facility] Gaqotozufi513[address] [place], [place] [address]Dr. Charlee PearsonWBC22.4 103/ulCritically high4.0-11.0The [facility] HospitalComment on above:Performed By: #### CBC ####[facility] Zvmiqjaquz1849[address] [place], [place] [address]Dr.Charlee PearsonPROF CHEM 8 (BAS METB)on 77-12-4729Gdwez gap [Moles/Vol]15.6 mmol/LNormalThe St. [facility] HospitalComment on above:Performed By: #### BMP ####[facility] Dgbgerymzy44[address] [place] [address]Dr.Yilan ChangCalcium [Mass/Vol]9.0 mg/dLNormal8.5-10.1The [facility] HospitalComment on above:Performed By: #### BMP ####[facility] Olsdgldlyx67[address] [place] [address]Dr.Yilan ChangChloride [Moles/Vol]98 mmol/XTqgiiu35-191Buv St[facility] HospitalComment on above:Performed By: #### BMP ####[facility] Ssjqidimhq108[address] [place], [place] [address]Dr.Yilan ChangCO2 [Moles/Vol]23.5 mmol/FQgkjcx79.0-32.0The [facility] HospitalComment on above:Performed By: #### BMP ####[facility] Ppitkjsvia376[address] [place], [place] [address]Dr.Yilan ChangCreatinine [Mass/Vol]0.59 mg/dLNormal0.55-1.02The [facility] HospitalComment on above: Performed By: #### BMP ####[facility] Sqgipbrgfg925[address] [place], [place] [address]Dr.Yilan ChangEGFR-AF KITTITIAN>60Normal>=60The [facility] HospitalComment on above:Performed By: #### BMP ####[facility] Snogpppjvv728[address] [place], [place] [address]Dr.Yilan ChangEGFR-NON AF KITTITIAN>60Normal>=60The [facility] HospitalComment on above:Performed By: #### BMP ####[facility] Idmbcxhicm1148[address] [place], [place] [address]Dr. Yilan ChangGlucose [Mass/Vol]169 mg/dLCritically rdan62-786Snq [facility] Comment on above:Performed By: #### BMP ####[facility] Nbqsokycwn245[address] [place], [place] [address]Dr.Yilan ChangPotassium [Moles/Vol]4.1 mmol/LNormal3.5-5.1The [facility] HospitalComment on above:Performed By: #### BMP ####[facility] Ljvwlyxglq590[address] [place], [place] [address]Dr. Claudettelan ChangSodium [Moles/Vol]133 mmol/LCritically rwy932-418Slx [facility] HospitalComment on above:Performed By: #### BMP ####[facility] Fjtrmbpxvf0770[address] [place], [place] [address]Dr.Yilan ChangUrea nitrogen [Mass/Vol]8.0 mg/dLNormal7.0-18.0The [facility] HospitalComment on above:Performed By: #### BMP ####[facility] Zygzbkzopg330276 [address] [place], [place] [address]Dr.Yilan ChangUrea nitrogen/Creatinine [Mass ratio]13.6 mg/mgNoProtestant Deaconess HospitalComment on above:Performed By: #### BMP ####[facility] Xhuqbvlxfj6490[address] [place], [place] [address]Dr.Charlee ChangXR CHEST 2 Von 14-12-1849GU CHEST 2 VNormalThe [facility] CULTURE ID PANELon 03-18-2022. baumanniiNot detectedNormalNOT DETECTEDThe St. [facility] HospitalComment on above:Performed By: #### BCID2 ####[facility] Ojsnfwfgfa035[address] [place], [place] [address]Dr. Charlee PearsonBacteriodes fragilisNot detectedNormal NOT DETECTEDThe [facility] HospitalCompontiac general hospital on above:Performed By: #### BCID2 ####[facility] Glmfqqqcxg356[address] [place], [place] [address]Dr. Charlee PearsonBCID CONTROLSPASSEDOhioHealth Berger HospitalComment on above: Performed By: #### BCID2 ####[facility] Nfaapcnvhd3448[address] [place], [place] [address]Dr. Charlee LundyIDBTHDBLOOD CULTURE BOTTLE INFORMATIONOhioHealth Berger HospitalComment on above:Performed By: #### BCID2 ####[facility] Ehekhgpsdo418[address] [place], [place] [address]Dr. Charlee LundyKenwgUIKXIT9AOGXNVOQMNTKZ RESISTANCE GENESCleveland Clinic South Pointe Hospital on above:Performed By: #### BCID2 ####[facility] Mnsnixirtv7[address] [place] [address]Dr. Yilan EpicnJOIXKU2IEY BELOWOhioHealth Berger HospitalComment on above:Result Comment: Note: Antimicrobial resitance can occur via multiple mechanisms. A Not Detected result for the [employer] antomicrobial resistance gene assays does not indicate antimicrobial susceptibi lity. Subculturing is required for species identification and susceptibility testing of isolates.Performed By: #### BCID2 ####[facility] Tauwznykcm[address] [place] [address]Dr. Yilan ChangBCIDHD3 PositiveOhioHealth Berger HospitalComment on above:Performed By: #### BCID2 ####[facility] Zyxhnzunao35[address] [place], [place] [address]Dr. Yilan RxwbrBFRDFO8YozstwvvJptofvBza [facility] HospitalComment on above:Performed By: #### BCID2 ####[facility] Dxlgyzgrun984[address] [place], [place] [address]Dr. Yilan BmeepOSNEHK3AMDWHHyzyjxHcqOhioHealth Berger HospitalComment on above:Performed By: #### BCID2 ####[facility] Bkpsyvocfa1737[address] [place], [place] [address]Dr. Yilan MichelBottle Set:Set 2NormalThe [facility] on above:Performed By: #### BCID2 ####[facility] Islawcpsns[address] [place], [place] [address]Dr. Yilan ChangBottle:Aerobic NormalThe [facility]. [facility] HospitalCompontiac general hospital on above:Performed By: #### BCID2 ####[facility] Lfephqhdxj4944[address] [place], [place] [address]Dr. Yilan ChangC. neoformans/gattiiNot detectedNormalNOT DETECTEDThe [facility]. [facility] HospitalCompontiac general hospital on above:Performed By: #### BCID2 ####[facility] Kletzpryed646[address] [place], [place] [address]Dr. Yiclaudette PearsonCandida albicansNot detectedNormalNOT DETECTEDThe St. [facility] HospitalCompontiac general hospital on above: Performed By: #### BCID2 ####[facility] Ymcbcmgogu0614[address] [place], [place] [address]Dr. Yilan ChangCandida aurisNot detectedNormalNOT DETECTEDThe St. [facility] HospitalComment on above:Performed By: #### BCID2 ####[facility] Oxgudahqqq4200[address] [place], [place] [address]Dr. Yilan ChangCandida glabrataNot detectedNormalNOT DETECTEDThe [facility] Comment on above:Performed By: #### BCID2 ####[facility] Sgiaeezwxc6565[address] [place], [place] [address]Dr. Yilan ChangCandida KruseiNot detected NormalNOT DETECTEDThe [facility]. [facility] HospitalComment on above:Performed By: #### BCID2 ####[facility] Fnvivmlvry811[address] [place], [place] [address]Dr. Yilan ChangCandida ParapsilosisNot detectedNormalNOT DETECTEDThe [facility] HospitalCompontiac general hospital on above:Performed By: #### BCID2 ####[facility] Gtgkknliav512[address] [place], [place] [address]Dr. Yilan ChangCandida TropicalisNot detectedNormalNOT DETECTEDThe St. [facility] HospitalComment on above: Performed By: #### BCID2 ####[facility] Cagdofyxzn9380[address] [place], [place] [address]Dr. Yilan ChangCTX-M Resistant GeneNot Applicable NormalNOT DETECTEDThe [facility] HospitalCompontiac general hospital on above:Performed By: #### BCID2 ####[facility] Pgunnxjjfd9537[address] [place], [place] [address]Dr. Yilan ChangE. Cloacae complexNot detectedNormalNOT DETECTEDThe [facility] Comment on above:Performed By: #### BCID2 ####[facility] Xkiyuhcjgx478[address] [place], [place] [address]Dr. Yilan ChangE. faecalisNot detectedNormal NOT DETECTEDThe [facility] HospitalCompontiac general hospital on above:Performed By: #### BCID2 ####[facility] Xccidpuoje36[address] [place], [place] [address]Dr. Yilan ChangE. faeciumNot detectedNormalNOT DETECTEDThe [facility] HospitalCompontiac general hospital on above:Performed By: #### BCID2 ####[facility] Ffkffakrtk6[address] [place] [address]Dr. Yilan ChangEnterobacteriaceaeNot detectedNormalNOT DETECTEDThe St. [facility] HospitalComment on above:Performed By: #### BCID2 ####[facility] Myplawpwhd48[address] [place] [address]Dr. Yiclaudette ChangEscherichia coliNot detectedNormalNOT DETECTEDThe [facility] Comment on above:Performed By: #### BCID2 ####[facility] Cettwdlsxq9[address] [place] [address]Dr. Charlee PearsonH. influenzaeNot detected NormalNOT DETECTEDThe St. [facility] HospitalComment on above:Performed By: #### BCID2 ####[facility] Apftqjgvrp7[address] [place], [place] [address]Dr. Charlee ChangIMP Resistant GeneNot ApplicableNormalNOT DETECTEDThe St. [facility] HospitalComment on above:Performed By: #### BCID2 ####[facility] Iauhqzweqz8[address] [place], [place] [address]Dr. Charlee ChangK. oxytocaNot detectedNormalNOT DETECTEDThe St. Charles HospitalComment on above:Performed By: #### BCID2 ####[facility] Qiokljvgbm779276 [address] [place], [place] [address]Dr. Charlee PearsonK. pneumoniaeNot detectedNormalNOT DETECTEDThe St. [facility]Comp[facility] on above:Performed By: #### BCID2 ####[facility] Ffbcjcsvns4[address] [place], [place] [address]Dr. Charlee ChangKlebsiella aerogenesNot detectedNormalNOT DETECTEDThe St. Charles HospitalComment on above: Performed By: #### BCID2 ####[facility] Elelvcjbhv[address] [place] [address]Dr. Claudettelan ChangKPC Resistant GeneNot ApplicableNormal NOT DETECTEDThe [facility]Comp[facility] on above:Performed By: #### BCID2 ####[facility] Knmzwmikpn457[address] [place], [place] [address]Dr. Charlee PearsonList. monocytogenesNot detectedNormalNOT DETECTEDThe [facility]Comp[facility] on above:Performed By: #### BCID2 ####[facility] Blwhijytcv68[address] [place] [address]Dr. Yilan ChangMcr-1 Resistant GeneNot ApplicableNormalNOT DETECTEDThe St. [facility] HospitalComment on above:Performed By: #### BCID2 ####[facility] Xzbmqcmcsr164[address] [place], [place] [address]Dr. Yilan ChangmecA/CNot detectedNormalNOT DETECTEDThe St. Charles HospitalComment on above:Performed By: #### BCID2 ####[facility] Fasvutseud9[address] [place], [place] [address]Dr. Yilan ChangmecA/C MREJNot ApplicableNormalNOT DETECTEDThe St. [facility] HospitalComment on above:Performed By: #### BCID2 ####[facility] Mbfugyqdqr327[address] [place], [place] [address]Dr. Yilan ChangN. meningitidisNot detectedNormalNOT DETECTEDThe St. [facility] HospitalComment on above:Performed By: #### BCID2 ####[facility] Ycdcpfsagy3514[address] [place], [place] [address]Dr. Yilan ChangNDM Resistant GeneNot ApplicableNormalNOT DETECTEDThe St. [facility] HospitalComment on above: Performed By: #### BCID2 ####[facility] Rozsrjnsxh448[address] [place], [place] [address]Dr. Yilan EfkcfHrz-72-fhnpKwq ApplicableNormalNOT DETECTEDThe [facility]Comp[facility] on above:Performed By: #### BCID2 ####[facility] Rlpmlpqtks13[address] [place], [place] [address]Dr. Yilan ChangProteusNot detectedNormalNOT DETECTEDThe St. [facility] HospitalComment on above:Performed By: #### BCID2 ####[facility] Xlpswjiyld[address] [place], [place] [address]Dr. Yilan ChangPseud. aeruginosaNot detectedNormalNOT DETECTEDThe St. [facility] HospitalComment on above:Performed By: #### BCID2 ####[facility] Hobsnptupv668[address] [place], [place] [address]Dr. Yilan ChangS. maltophiliaNot detectedNormalNOT DETECTEDThe [facility] on above:Performed By: #### BCID2 ####[facility] Lnquwqqnyy06[address] [place] [address]Dr. Yilan ChangSalmonellaNot detectedNormal NOT DETECTEDThe St. Charles HospitalComment on above:Performed By: #### BCID2 ####[facility] Divopvglfh[address] [place], [place] [address]Dr. Yilan ChangSeratia marcescensNot detectedNormalNOT DETECTEDThe [facility] Comment on above:Performed By: #### BCID2 ####[facility] Lehkjwvkkc[address] [place] [address]Dr. Yilan ChangSite:left armNormalThe St. Charles HospitalComment on above:Performed By: #### BCID2 ####[facility] Pjvsxgyyah13[address] [place], [place] [address]Dr. Yilan ChangStaph. aureus Not detectedNormalNOT DETECTEDThe St. [facility] HospitalComment on above:Performed By: #### BCID2 ####[facility] Wfodtxvjvi4469[address] [place], [place] [address]Dr. Yilan ChangStaph. epidermidisDetectedAbnormalNOT DETECTEDThe St. [facility] HospitalComment on above:Performed By: #### BCID2 ####[facility] Luqmhcfezg4616[address] [place], [place] [address]Dr. Yilan ChangStaph. lugdunensisNot detectedNormalNOT DETECTEDThe [facility] HospitalCompont[facility] on above: Performed By: #### BCID2 ####[facility] Fzisfrysaj0114[address] [place], [place] [address]Dr. Yilan ChangStaphylococcusDetectedAbnormalNOT DETECTEDThe St. [facility] HospitalComment on above:Performed By: #### BCID2 ####[facility] Zharchjyqh969[address] [place], [place] [address]Dr. Yilan ChangStrep. agalactiaeNot detectedNormalNOT DETECTEDThe [facility] Comment on above:Performed By: #### BCID2 ####[facility] Xixbdvxrlh0313[address] [place], [place] [address]Dr. Yilan ChangStrep. pneumoniaeNot detected NormalNOT DETECTEDThe [facility] HospitalComment on above:Performed By: #### BCID2 ####[facility] Lfzjqkrxbf088[address] [place], [place] [address]Dr. Yilan MichelStrep. pyogenesNot detectedNormalNOT DETECTEDThe [facility] Comment on above:Performed By: #### BCID2 ####[facility] Pqcnnucvpy8030[address] [place], [place] [address]Dr. Yilan ChangStreptococcusNot detected NormalNOT DETECTEDThe St. [facility] HospitalComment on above:Performed By: #### BCID2 ####[facility] Eyueeslgsb1548[address] [place], [place] [address]Dr. Yilan MichelvanA/B Resist. GeneNot ApplicableNormalNOT DETECTEDThe St. [facility] HospitalComment on above:Performed By: #### BCID2 ####[facility] Xfazyjuqhs035[address] [place], [place] [address]Dr. Yilan MichelVIM Resistant GeneNot ApplicableNormalNOT DETECTEDThe St. [facility] HospitalComment on above: Performed By: #### BCIRachelle ####[facility] Dfkhjmcqxf9764[address] [place], [place] [address]Dr. Charlee PearsonCBC W MANUAL DIFFon 66-07-1456IPGOYIBZ LYMPH #NormalThe St. Charles HospitalComment on above:Performed By: #### CBCJARON ####[facility] Czihssydri027[address] [place], [place] [address]Dr. Yilan ChangATYPICAL LYMPH %NormalThe St. Charles HospitalComment on above:Performed By: #### CBCJARON ####[facility] Flvqxgpism626[address] [place], [place] [address]Dr. Yilan ChangBAND #Normal0.0-0.3The [facility] HospitalComment on above:Performed By: #### CBCJARON ####[facility] Zpnhnkhxqg392[address] [place], [place] [address]Dr. Yilan ChangBAND %Normal0-5The [facility] Comment on above:Performed By: #### CBCJARON ####[facility] Gpbzuqxiey368[address] [place], [place] [address]Dr. Charlee PearsonBASOM #0.00 103/ulNormal 0.00-0.10The [facility] HospitalComment on above:Performed By: #### CBCMAN ####[facility] Smhxvbigrl44[address] [place] [address]Dr. Yilan ChangBASOM %0.0 %Critically low0.2-2.0The [facility] HospitalComment on above:Performed By: #### CBCMAN ####[facility] Mglojtsadw7[address] [place] [address]Dr. Yilan ChangBLAST #NormalThe [facility] Comment on above:Performed By: #### CBCMAN ####[facility] Nptkkbokly75[address] [place] [address]Dr. Yilan ChangBLAST %NormalThe St. Charles HospitalComment on above:Performed By: #### CBCMAN ####[facility] Dqysqcwpjb977[address] [place], [place] [address]Dr. Yilan ChangCORRECTED WBC Normal4.0-11.0The [facility] HospitalComment on above:Performed By: #### CBCMAN ####[facility] Ggphslogrg9318[address] [place], [place] [address]Dr. Yilan ChangEOS #0.00 103/ulNormal0.00-0.70The [facility] HospitalComment on above: Performed By: #### CBCMAN ####[facility] Pgicpyhqqk240[address] [place], [place] [address]Dr. Yilan ChangEOS%0.0 %Critically low0.9-7.0The [facility] HospitalComment on above:Performed By: #### CBCMAN ####[facility] Ykodqrrtml6949[address] [place], [place] [address]Dr. Yilan ChangHCT 42.8 %Bjiaup79.0-48.0The [facility] HospitalComment on above:Performed By: #### CBCMAN ####[facility] Dsuotusycl1067[address] [place], [place] [address]Dr. Yilan UvkwiYCY36.4 g/ocPcnxpa37.0-16.0The [facility] HospitalComment on above:Performed By: #### CBCMAN ####[facility] Zlvwzldvaz419[address] [place], [place] [address]Dr. Yilan ChangLYMPHM #1.43 103/ulNormal1.20-3.80The [facility] HospitalComment on above:Performed By: #### CBCJARON ####[facility] Drecvvqbgg9736 [place] [address]Dr. Charlee Pearson LYMPHM%5.0 %Critically low20.5-60.0The [facility] HospitalComment on above: Performed By: #### CBCJARON ####[facility] Goeqqvkxpk4920 [place] [address]Dr. Charlee PearsonMCH31.8 yjNbtgpt27.7-34.0The [facility] HospitalComment on above:Performed By: #### CBCJARON ####[facility] Uxzkseqrip448[address] [place], [place] [address]Dr. Charlee PearsonMCHC33.6 g/dl Hxkfua40.9-35.2The [facility] HospitalComment on above:Performed By: #### CBCJARON ####[facility] Gnbhavwpgw148[address] [place], [place] [address]Dr. Charlee PearsonMCV94.5 oUWolqtd30.0-99.0The [facility] HospitalComment on above: Performed By: #### CBCJARON ####[facility] Kgzyllwigi529[address] [place], [place] [address]Dr. Charlee ChangMETAMYELOCYTE #NormalThe St. [facility] HospitalComment on above:Performed By: #### CBCJARON ####[facility] Ssaqcstwas449[address] [place], [place] [address]Dr. Charlee ChangMETAMYELOCYTE %NormalThe [facility] HospitalComment on above:Performed By: #### CBCJARON ####[facility] Dralotkzru05[address] [place], [place] [address]Dr. Charlee PearsonMONOM#1.43 103/ulCritically high0.30-0.80The [facility] HospitalComment on above:Performed By: #### CBCJARON ####[facility] Qnupcipxei6301[address] [place], [place] [address]Dr. Charlee PearsonMONOM%5.0 %Normal1.7-12.0The [facility] HospitalComment on above:Performed By: #### CBCJARON ####[facility] Eminvdmqre55[address] [place] [address]Dr. Yilan ChangMPV 9.2 fLCritically low9.5-13.5The [facility] HospitalComment on above:Performed By: #### CBCJARON ####[facility] Dtvidrvqtt3667 [place] [address]Dr. Yilan ChangMYELOCYTE #NormalThe [facility]. [facility] HospitalComment on above: Performed By: #### CBCJARON ####[facility] Vhamvcamyp87[address] [place] [address]Dr. Yilan ChangMYELOCYTE %NormalThe [facility] Comment on above:Performed By: #### CBCJARON ####[facility] Byikikhsza45[address] [place], [place] [address]Dr. Yilan ChangNRBCNormalThe St. Charles HospitalComment on above:Performed By: #### CBCJARON ####[facility] Xilufqtnxc3655[address] [place], [place] [address]Dr. Yilan ZazymQAW538 103/ul Jmtpqo200-302Lhy St. Charles HospitalComment on above:Performed By: #### CBCJARON ####[facility] Zszftbyzjn75[address] [place], [place] [address]Dr. Yilan ChangRBC4.53 106/ulNormal4.20-5.40The [facility] HospitalComment on above: Performed By: #### CBCJARON ####[facility] Nrbayvtutr[address] [place], [place] [address]Dr. Yilan OzjxnMCI03.9 %Rtuhio11.0-15.0The [facility] HospitalComment on above:Performed By: #### CBCJARON ####[facility] Qapbeezkpo2915[address] [place], [place] [address]Dr. Yilan ChangSEG #25.65 103/ulCritically high1.40-6.50The [facility] HospitalComment on above:Performed By: #### CBCJARON ####[facility] Yrvhluxbmk0537[address] [place], [place] [address]Dr. Yilan ChangSEG %90.0 %Critically high43.0-75.0The [facility] HospitalComment on above:Performed By: #### CBCMAN ####[facility] Yhbbiwdavr2686 [place] [address]Dr. Charlee PearsonWBC28.5 103/ul Critically high4.0-11.0The [facility] HospitalComment on above:Performed By: #### CBCMAN ####[facility] Mzywosdxpq0453 [place] [address]Dr. Charlee ChangCULTURE BLOODon 82-88-3900Lzvyfutmskl examination of blood, cultureCulture Observations: YENNY TO FOLLOW. Isolate [address] [facility] HospitalComment on above:Performed By: #### BLDCX2 ####[facility] Qlqfaxqngf5177 [place] [address]Dr. Charlee ChangMicroscopic examination of blood, cultureCulture Observations: NO GROWTH AT [address] [facility] HospitalComment on above:Performed By: #### BLDCX1 ####[facility] Loqdqqgewx05[address] [place] [address]Dr. Charlee PearsonCovid-19 PCR (CVDTBH)on 52-81-4060XTLJ-CoV-2 (COVID-19) RNA LORENZO+probe Ql (Unsp spec)Not detectedNormalNOT DETECTEDThe [facility] Comment on above:Result Comment: When diagnostic testing is negative, the possibility of a false negative should be considered inthe context of a patient's recent exposures and the presence of clinical signs and sympt omsconsistent with SARS-CoV-2.This test is not yet approved or cleared by the [place] FDA. When there are no FDA-approved or cleared tests available, and other criteria are met, FDA can make tests available under an emergency access mechanism called an Emergency Use Authorization (EUA). The EUA for this test is supported by the [place] of Health and Human Service's declaration that circumstances exist to justify the emergency use of in vitro diagnostics for the detection and/or diagnosis of the virus that causes COVID-19. This EUA will remain in effect for the duration of the COVID-19declaration justifying emergency of IVDs, unless it is terminated or revoked by the FDA (after which the test may no longer be used).Performed By: #### CVDTBH ####[facility] Yadcrcwwui56[address] [place] [address]Dr. Claudetteclaudette ChangLACTATE/LACTIC ACIDon 94-75-0106Xjwiyyd [Moles/Vol]1.4 mmol/LNormal0.4-1.9The [facility] Comment on above:Performed By: #### LACT ####[facility] Avscaxthny04[address] [place], [place] [address]Dr. Yiclaudette ChangLactate [Moles/Vol]1.8 mmol/L Normal0.4-1.9The [facility] HospitalComment on above:Performed By: #### LACT ####[facility] Qxfdkujljh5320[address] [place], [place] [address]Dr. Claudetteclaudette ChangPROF 14(COMP METB)on 24-49-4401Lfnrcbp [Mass/Vol]3.9 g/dLNormal 3.4-5.0The [facility] HospitalComment on above:Performed By: #### CMP ####[facility] Edeceaamfu145[address] [place], [place] [address]Dr.Charlee Pearson Albumin/Globulin [Mass ratio]0.8 {ratio}NormalThe St. Charles HospitalComment on above:Performed By: #### CMP ####[facility] Gdtbflqnan329[address] [place], [place] [address]Dr.Claudettelan ChangALP [Catalytic activity/Vol]88 U/LNormal 46-116The [facility] HospitalComment on above:Performed By: #### CMP ####[facility] Atoqzwnjsf[address] [place], [place] [address]Dr.Yilan ChangALT [Catalytic activity/Vol]37 U/LCgjwag37-64Dia St[facility] HospitalComment on above: Performed By: #### CMP ####[facility] Soybsoebpl735[address] [place], [place] [address]Dr.Charlee ChangAnion gap [Moles/Vol]16.2 mmol/LNormal The [facility] HospitalComment on above:Performed By: #### CMP ####[facility] Vgiqnroyca26[address] [place], [place] [address]Dr.Yilan ChangAST [Catalytic activity/Vol]44 U/LCritically ftcb44-50Ypi [facility] on above:Performed By: #### CMP ####[facility] Gmemaagesv5850[address] [place], [place] [address]Dr.Yilan ChangBilirubin [Mass/Vol]0.6 mg/dLNormal 0.2-1.0The [facility] HospitalComment on above:Performed By: #### CMP ####[facility] Jwcojwddfl14[address] [place], [place] [address]Dr.Yilan Pearson Calcium [Mass/Vol]9.4 mg/dLNormal8.5-10.1The [facility] HospitalCompontiac [facility] on above: Performed By: #### CMP ####[facility] Zellbmyjxv660[address] [place], [place] [address]Dr.Yilan ChangChloride [Moles/Vol]93 mmol/LCritically hyy33-616Zga [facility] HospitalCompontiac [facility] hospital on above:Performed By: #### CMP ####[facility] Zzauuijmcz995[address] [place], [place] [address]Dr. Yilan ChangCO2 [Moles/Vol]25.1 mmol/PZedrfe76.0-32.0The [facility] HospitalComp[facility] on above:Performed By: #### CMP ####[facility] Pzogemrbmf[address] [place], [place] [address]Dr.Yilan ChangCreatinine [Mass/Vol]0.74 mg/dLNormal 0.55-1.02The [facility] HospitalCompont[facility] on above:Performed By: #### CMP ####[facility] Jhssowvdby060[address] [place], [place] [address]Dr. Yilan ChangEGFR-AF KITTITIAN>60Normal>=60The [facility] HospitalComment on above: Performed By: #### CMP ####[facility] Jpjspinkpj7435[address] [place], [place] [address]Dr.Yilan ChangEGFR-NON AF KITTITIAN>60Normal>=60The [facility] HospitalComment on above:Performed By: #### CMP ####[facility] Jghlkvzexy4037 [place] [address]Dr.Claudettelan ChangGlobulin (S) [Mass/Vol]4.8 g/dLNormalThOhioHealth Pickerington Methodist HospitalComment on above:Performed By: #### CMP ####[facility] Fgjdusxddp9531 [place] [address]Dr.Yilan ChangGlucose [Mass/Vol]106 mg/bTVhpfwz35-750UiaMer[facility] Hospital Comment on above:Performed By: #### CMP ####[facility] Lrjkvhkfwd4637 [place] [address]Dr.Yilan ChangPotassium [Moles/Vol]4.3 mmol/LNormal3.5-5.1The [facility] HospitalComment on above:Performed By: #### CMP ####[facility] Bebkehisfm[address] [place], [place] [address]Dr. Yilan ChangProtein [Mass/Vol]8.7 g/dLCritically high6.4-8.2[facility] Comment on above:Performed By: #### CMP ####[facility] Zmfvhmhtkp92[address] [place], [place] [address]Dr.Yilan ChangSodium [Moles/Vol]130 mmol/L Critically nmf010-157YmwMercy Health Fairfield HospitalComment on above:Performed By: #### CMP ####[facility] Drpzpzbltl026[address] [place], [place] [address]Dr. Yilan ChangUrea nitrogen [Mass/Vol]9.0 mg/dLNormal7.0-18.0The [facility] Comment on above:Performed By: #### CMP ####[facility] Axxjcwpoff62[address] [place], [place] [address]Dr.Yilan ChangUrea nitrogen/Creatinine [Mass ratio]12.2 mg/mgNormalThOhioHealth Pickerington Methodist HospitalComment on above:Performed By: #### CMP ####[facility] Czyeugveoq530[address] [place], [place] [address]Dr. Yilan ChangXR CHEST 1 Von 20-25-9007HC CHEST [address] [facility] Vital Signs Date TimeVital SignValuePerforming GtotfryuqLoglpduw35-56-4191 11:16-0400Body zachhu433.9 cmKaren Hemmer PA Work Phone: [facility] HospitalVxorritemf56-09-3481 11:16-0400Body mass index (BMI) [Ratio]21.8 kg/a0Efpic Hemmer PA Work Phone: [facility] HospitalXxknjexzxm18-96-6911 11:16-0400Body keaghw62.34 kgKaren Hemmer PA Work Phone: [facility] HospitalSvebqvcwsk65-82-0713 11:16-0400Diastolic blood almzregd09 mm[Hg]Basia Hemmer PA Work Phone: [facility] HospitalZlmfgkyrqc88-37-0967 11:16-0400Heart rate85 /min Basia Hemmer PA Work Phone: [place] [address]Ffdfsmoyce06-03-1445 11:16-0400Respiratory rate18 /minKaren Hemmer PA Work Phone: [phone]-0052[facility] HospitalFttomvfnyg98-05-8415 11:16-1643WqH7% (BldA) [Mass fraction]97 %Basia Hemmer PA Work Phone: [phone]-9899[facility] HospitalJednknkwwd55-66-1499 11:16-0400Systolic blood gcyjqtfh164 mm[Hg]Basia Hemmer PA Work Phone: [facility] HospitalXswssrgyoo72-92-3859 13:44-0500Body axvgrw930.9 cmKaren Hemmer PA Work Phone: [phone]-5136[facility] HospitalFqicsjdgog76-65-7638 13:44-0500Body mass index (BMI) [Ratio]20.18 kg/m2Cpvsh Hemmer PA Work Phone: [facility] HospitalFpfpqurxyr19-76-5640 13:44-0500Body temperature 97.5 [degF]Basia Hemmer PA Work Phone: [phone]6360[facility] HospitalLmxzoqjqcy29-18-6617 13:44-0500Body lqylyf55.44 kgKaren Hemmer PA Work Phone: [facility] HospitalEgxxmfrong15-14-8021 13:44-0500Diastolic blood riuerbwx60 mm[Hg]Basia Hemmer PA Work Phone: [facility] Jvpvmseywf19-75-1955 13:44-0500Heart gync269 /min Basia Oreilly PA Work Phone: [facility] Wxaxxmtikh47-15-4460 13:44-0500Respiratory rate16 /minBasia Oreilly PA Work Phone: [facility]OP[facility]ps HealthBcgbxzsqzn00-54-8883 13:44-8203IxS8% (BldA) [Mass fraction]92 %Basia Oreilly PA Work Phone: [facility] HospitalGuzpugrjyn37-98-7416 13:44-0500Systolic blood qjqpplwe388 mm[Hg]Basia Oreilly PA Work Phone: [facility] Ztfpxloikk08-81-3948 11:20-0500Body temperature 97.7 [degF]Za Mason DO Work Phone: [employer]01-06-2025 11:20-0500Diastolic blood rycwmtex25 mm[Hg]Za Mason DO Work Phone: [employer]01-06-2025 11:20-0500Heart rate80 /minZa Mason DO Work Phone: [employer]01-06-2025 11:20-0500 Respiratory rate18 /minZa Mason DO Work Phone: [employer]01-06-2025 11:20-0326OgC0% (BldA) [Mass fraction]93 %Za Mason DO Work Phone: [employer]01-06-2025 11:20-0500Systolic blood embavqhu275 mm[Hg]Za Mason DO Work Phone: [employer]01-06-2025 05:52-0500Body mass index (BMI) [Ratio]20.98 kg/g7Nkpola Kim DO Work Phone: [employer]01-06-2025 05:52-0500Body jtyekr99.35 kgZa Mason DO Work Phone: [facility]12-30-2024 11:14-0500Body .9 Ivelisse Mason DO Work Phone: [facility]12-16-2024 13:02-0500Body .[address] [place], [place] [address]12-16-2024 13:02-0500Body mass index (BMI) [Ratio]22.11 kg/m2Sta [address] [place], [place] [address]12-16-2024 13:02-0500Body agbbearbvzx92.1 [degF]Sta [address] [place], [place] [address]12-16-2024 13:02-0500Body .[address] [place], [place] [address]39[address]12-16-2024 13:02-0500Diastolic blood mm[Hg]Sta [address] [place], [place] [address]39[address]12-16-2024 13:02-0500Heart rate83 /minSta [address] [place], [place] [address]39[address]12-16-2024 13:02-0500Respiratory rate20 /minSta [address] [place], [place] [address]39[address]12-16-2024 13:02-9843GhM3% (BldA) [Mass fraction]93 % Sta [address] [place], [place] [address]12-16-2024 13:02-0500Systolic blood njtggwiv442 mm[Hg]Sta [address] [place], [place] [address]12-12-2024 13:29-0500Body ytvyoo830.9 cm Kerrie Lombardo MD Work Phone: [facility]12-12-2024 13:29-0500 Body mass index (BMI) [Ratio]22.11 kg/f0BtpsljKerrie Lombardo MD Work Phone: [facility]12-12-2024 13:29-0500 Body gypbsu03.07 kgKerrie Lombardo MD Work Phone: [facility]12-12-2024 13:29-0500 Diastolic blood bjwrgrab41 mm[Hg]Kerrie Lombardo MD Work Phone: [phone]12-12-2024 13:29-0500 Heart rate68 /minKerrie Lombardo MD Work Phone: [facility]12-12-2024 13:29-0500 Systolic blood hbaxisfv94 mm[Hg]Kerrie Lombardo MD Work Phone: [facility]10-03-2024 14:26-0400 Body zefyoa185.9 cmIsabella Nicolas ARCHIVIST Work Phone: [phone] [place], [place] [address]Czzubhltty40-80-8411 14:26-0400Body mass index (BMI) [Ratio]22.67 kg/m2Isabella Jean Claude ARCHIVIST Work Phone: [phone] [place], [place] [address]Ctnryebxob04-88-2654 14:26-0400Body ipiisa61.43 kgIsabella Nicolas ARCHIVIST Work Phone: 1(647)627-[address] [place], [place] [address]Psfrzuaxfv21-23-4521 14:26-0400Diastolic blood loeunlic13 mm[Hg]Isabella Nicolas ARCHIVIST Work Phone: 1(372)454-[address] [place], [place] [address]Qjlywgdqad33-47-8251 14:26-0400Heart rate83 /min Isabella Nicolas ARCHIVIST Work Phone: 1([phone])216-[address] [place], [place] [address]Mqyfhptcla22-88-6701 14:26-9375ExQ6% (BldA) [Mass fraction]96 %Isabella Nicolas ARCHIVIST Work Phone: [facility] HospitalOwltlaupbd07-11-6937 14:26-0400Systolic blood nztoiiaw020 mm[Hg]Isabella Nicolas ARCHIVIST Work Phone: [phone] [place], [place] [address]Srxgcykvae73-27-0694 14:34-0400Body dfugoh595.[address] [place], [place] 686[address]9-10-2024 14:34-0400Body mass index (BMI) [Ratio]24 kg/m2Ely [address] [place], [place] 686[address]9-10-2024 14:34-0400 Body ouzkyf05.[address]09-10-2024 14:34-0400 Diastolic blood yjixqdnb57 mm[Hg][address] 06-03-2024 14:34-0400Systolic blood huorzpwu798 mm[Hg][address]11-22-2023 14:15-0500Body awfsmh486.48 cmAllyssa Martellban Other [facility]Way[facility] Other 11-22-2023 14:15-0500Body mass index (BMI) [Ratio] 21.07 kg/e4KibnqAllyssa Martellban Other [employer] Other 11-22-2023 14:15-0500Body wlmbdpuxwnk50 [degF]Allyssa Martellban Other [employer] Other 11-22-2023 14:15-0500Body hqawzo37.25 kgAllyssa Martellban Other [employer] Other 11-22-2023 14:15-0500Diastolic blood gmrjiukm38 mm[Hg] Allyssa Martellban Other [facility] Other 11-22-2023 14:15-0500Respiratory rate20 /minAllyssa Moreno Other [facility] Other 11-22-2023 14:15-2611UiH3% (BldA) [Mass fraction]Allyssa Martellban Other [facility] Other 11-22-2023 14:15-0500Systolic blood zziardva446 mm[Hg] Allyssa Martellban Other [facility] Other 11-22-2022 16:30-0500Body hofkyn945.48 cmAllyssa Martellban Other [facility] Other 11-22-2022 16:30-0500Body mass index (BMI) [Ratio] 19.31 kg/w1TldxlAllyssa Martellban Other [facility] Other 11-22-2022 16:30-0500Body guvibqqoxer37 [degF]Allyssa Martellban Other [facility] Other 11-22-2022 16:30-0500Body .9 kgAllyssa Moreno Other [facility] Other 11-22-2022 16:30-0500Diastolic blood wlhouqfj09 mm[Hg] Allyssa Martellban Other [facility] Other 11-22-2022 16:30-0500Respiratory rate20 /minAllyssa Moreno Other [facility] Other 11-22-2022 16:30-3633XoV9% (BldA) [Mass fraction]Allyssa Moreno Other [facility] Other 11-22-2022 16:30-0500Systolic blood xkirdawq457 mm[Hg] Allyssa Moreno Other [facility] Other 08-17-2022 16:30-0400Body qlhoez038.48 cmAllyssa Moreno Other [facility] Other 08-17-2022 16:30-0400Body mass index (BMI) [Ratio] 19.31 kg/o7SmoqdAllyssa Moreno Other [facility] Other 08-17-2022 16:30-0400Body wurzwzphscx98.9 [degF]Allyssa Martellban Other [facility] Other 08-17-2022 16:30-0400Body qxgylq49.9 kgAllyssa Moreno Other [facility] Other 08-17-2022 16:30-0400Diastolic blood uapigiyq06 mm[Hg] Allyssa Moreno Other [facility] Other 08-17-2022 16:30-0400Respiratory rate20 /minAllyssa Moreno Other [facility] Other 08-17-2022 16:30-2572LqX0% (BldA) [Mass fraction]Allyssa Moreno Other [facility] Other 08-17-2022 16:30-0400Systolic blood idwkwkqe400 mm[Hg] Allyssa Moreno Other [facility] Other 04-11-2022 11:30-0400Body .48 cmAllyssa Moreno Other [facility] Other 04-11-2022 11:30-0400Body mass index (BMI) [Ratio]21.4 kg/y9UsklqAllyssa Moreno Other [facility] Other 04-11-2022 11:30-0400Body gospdngoexd44 [degF]Allyssa Moreno Other [facility] Other 04-11-2022 11:30-0400Body qerigd75.07 kgAllyssa Moreno Other [facility] Other 04-11-2022 11:30-0400Diastolic blood nsnjehhx57 mm[Hg] Allyssa Moreno Other [employer] Other 04-11-2022 11:30-0400Respiratory rate20 /minAllyssa Moreno Other [facility] Other 04-11-2022 11:30-7564PnC1% (BldA) [Mass fraction]94 % Allyssa Moreno Other [facility] Other 04-11-2022 11:30-0400Systolic blood lqsaxjhx786 mm[Hg] Allyssa Moreno Other [facility] Other Encounters Encounter DateEncounter TypeCare ProviderFacilityStart: 07-07-2025 End: 21-28-6135TmcwuiQmrlpd B Berry MD Work Phone: [facility] MedinceComment on above: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)Start: 06-17-2025 End: 60-76-9598BakwkgBpjgn M Hemmer PA Work Phone: [facility] [place] [facility] MedinceComment on above:Generalized anxiety disorderStart: 05-14-2025 End: 51-33-0427Facbaegregory AKHTAR Work Phone: [facility] [place] [facility] MedinceStart: 05-14-2025 End: 60-16-7532Auafokgregory AKHTAR Work Phone: [facility] [place] [facility] MedinceStart: 05-14-2025 End: 48-96-4612lxylafgmppBWUDO M HEMMERNot AvailableStart: 05-14-2025 End: 84-13-7798Bphwno outpatient visit 25 minutesBasia AKHTAR Work Phone: [facility] MedinceComment on above:Panlobular emphysema (HCC) (Primary Dx); Moderate episode of recurrent major depressive disorder (HCC); Acute exacerbation of chronic obstructive airways disease (HCC); Hypomagnesemia; Rhus dermatitis; 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); Colostomy in place (HCC)Start: 04-20-2025 End: 00-32-1041Xqpisetiy Manjinder AKHTAR Work Phone: [facility] [place] [facility] MedinceStart: 04-19-2025 End: 13-36-1750RjkoarJlgzr M Hemmer PA Work Phone: [facility] [place] [facility] MedinceComment on above: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)Start: 04-17-2025 End: 03-69-4521Hbpnncdhl Result Manjinder AKHTAR Work Phone: [facility] External Department UnsolicitedStart: 04-17-2025 End: 85-56-0859Fucrvfxzt Result Manjinder AKHTAR Work Phone: [facility] External Department UnsolicitedStart: 02-12-2025 End: 65-72-1653unjdmjbvumPBIUR M HEMMERNot AvailableStart: 01-01-2025 End: 51-62-3754IifblzPnndjyt Lm CORBETT CI FMComment on above:Mixed anxiety and depressive disorderStart: 12-03-2024 End: 10-42-2288NvgctnUqndqun Lm COR[facility]T CI FMComment on above:Age-related osteoporosis without current pathological fracture (CMS/HCC); Chronic obstructive pulmonary disease, unspecified COPD type (CMS/HCC)Start: 10-27-2024 End: 91-32-6817Irdzmbooh Eden Lopez MD Work Phone: [facility] CI FMStart: 10-20-2024 End: 96-98-9426Fjggmm Jayme AKHTAR Work Phone: [facility] CI FMStart: 10-20-2024 End: 61-65-9484Qskztd Jayme AKHTAR Work Phone: noms CI FMStart: 10-20-2024 End: 85-32-9292sdloxaspysBBOOY M HEMMERNot AvailableStart: 10-20-2024 End: 49-36-3354Zknzmu outpatient visit 25 minutesBasia AKHTAR Work Phone: noms CI FMComment on above:COPD exacerbation (CMS/HCC) (Primary Dx); Colostomy in place (CMS/HCC); History of open sigmoidectomy; Acute non-recurrent frontal sinusitis; Encounter for screening mammogram for malignant neoplasm of breast; Chronic hypoxic respiratory failure, on home oxygen therapy (CMS/HCC); Chronic obstructive pulmonary disease, unspecified COPD type (CMS/HCC); Panlobular emphysema (CMS/HCC); Oxygen dependentStart: 09-28-2024 End: 30-81-6745Lhvzklwvv Result EncounterGeneric External Data ProviderNOMS External Department UnsolicitedStart: 09-28-2024 End: 77-12-1160Dbgjspdcn Result EncounterGeneric External Data ProviderNOMS External Department UnsolicitedStart: 09-22-2024 End: 54-20-3614Tgbdxxjkgd and management of Mimi Mason DO Work Phone: staz Progressive CareComment on above:Acute postoperative pain (Primary Dx); Diverticulitis; Age-related physical debilityStart: 09-08-2024 End: 63-58-0752Dnfkkex [facility] statusJohn [facility] Work Phone: Start: 09-08-2024 End: 17-71-1500Ywgujyftzm hospital visit by physicianWeatherford Regional Hospital – WeatherfordComment on above:Pre-op testingStart: 09-08-2024 End: 10-92-7652Vqzfhhinq Result EncounterGeneric External Data ProviderNOMS External Department UnsolicitedStart: 09-08-2024 End: 79-02-5706Zugzvopno Result EncounterGeneric External Data ProviderNOMS External Department UnsolicitedStart: 09-08-2024 End: 64-78-2444zvwgtqmyjyXKWZVI M KIMHenry County Hospitaltart: 09-08-2024 Encounter for other preprocedural examinationDANIEL [facility] Start: 09-08-2024 End: 91-78-2738Snbyofz encounter statusSta Luba Lo [facility] HospitalStart: 09-08-2024 End: 33-47-4540Bgohrfvnog hospital visit by physicianSta Pat [place] Pre- Admit TestingComment on above:Pre-op testing (Primary Dx)Start: 09-04-2024 End: 87-38-7694Skcmas outpatient visit 25 minutesKerrie Lombardo MD Work Phone: [facility] CenterComment on above:Paroxysmal atrial fibrillation (Multi); Pulmonary emphysema, unspecified emphysema type (Multi); Shortness of breath; Acquired hypothyroidism; Mixed hyperlipidemia; At high risk for falls; Abnormal EKG; BMI 22.0-22.9, adult; Former cigarette smoker; Pre-operative clearance; Other emphysema (Multi)Start: 09-04-2024 End: 88-26-7384Zgmnnceehpqi stateKerrie Lombardo MD Work Phone: [facility] Work Phone: Start: 09-04-2024 End: 91-91-0822iqiezyjrbhUDYGFUMain Line Health/[facility] AmbulatoryStart: 09-04-2024 End: 45-84-4579Ligaxfazy for other preprocedural examinationMercy Fitzgerald Hospital AmbulatoryStart: 08-06-2024 End: 15-73-4266KdajtjCefckqk Lm JARONENCOMPASS HEALTH RE[facility] FMComment on above:Age-related osteoporosis without current pathological fracture (CMS/[facility])Start: 07-18-2024 End: 78-15-4465Jgdotgnsa Result EncounterGeneric External Data ProviderNOMS External Department UnsolicitedStart: 07-18-2024 End: 22-48-6466Rrfuylcyb Result EncounterGeneric External Data ProviderNOMS External Department UnsolicitedStart: 07-18-2024 End: 73-29-7855dzuuyhwhyeAGWIZY B [facility] [place] [facility] Southtart: 07-05-2024 End: 64-72-8629CqfsoqGujyhn B Berry MD Work Phone: [facility] CI FMComment on above:Panlobular emphysema (CMS/HCC)Start: 06-26-2024 End: 60-67-0570Sjmjkahyvvdt care manage srvc 7 day dischargeIsabella Nicolas ARCHIVIST Work Phone: [facility] CI FMComment on above:Hospital discharge follow- up (Primary Dx); Hx of small bowel obstruction; Colostomy present (CMS/HCC); Disorder involving the immune mechanism, unspecified (CMS/HCC)Start: 06-26-2024 End: 65-45-5591axwfikimbrXZO C MILLERNot AvailableStart: 06-26-2024 End: 57-56-8370Dlqqje Ion Nicolas ARCHIVIST Work Phone: [facility] CI FMStart: 06-26-2024 End: 45-77-7907Tptvzr Ion Nicolas ARCHIVIST Work Phone: [facility] CI FMStart: 06-07-2024 End: 40-68-5098Zjcghpurds and management of inpatientDAJULIAN SánchezSeattle VA Medical Centertart: 06-03-2024 End: 49-54-6290rdnzrasapfZDLBMYMercy Health [facility] Hospital Start: 06-03-2024 End: 63-17-6931Kqnuubycml hospital visit by Gina Godoy Echo/Vasc Room 2DeKalb Regional Medical CenterComment on above:Paroxysmal atrial fibrillation (Multi); Myalgia; LightheadednessStart: 05-22-2024 End: 25-63-8782NhgfzvZrgdyi Lester SALMERONOMS CI FMComment on above:Mixed anxiety and depressive disorderStart: 04-28-2024 End: 01-52-4335bgurqburmuGHGHTOWellstar [facility] AmbulatoryStart: 03-28-2024 End: 70-02-3610Hbthbopel Result EncounterJeremias Lopez MD Work Phone: [facility] External Department UnsolicitedStart: 03-28-2024 End: 24-55-7487Uosbajmda Result EncounterJeremias Lopez MD Work Phone: noms External Department UnsolicitedStart: 03-10-2024 End: 75-61-7646Tuxlhyqzo Result EncounterJeremias Lopez MD Work Phone: noms External Department UnsolicitedStart: 03-10-2024 End: 86-51-1924Xtaoizfsb Result EncounterJeremias Lopez MD Work Phone: noms External Department UnsolicitedStart: 08-15-2023 End: 54-41-3426ohtzvljxazTzllh Chaban Other no[facility] Other Start: 59-67-8193Auihqu outpatient visit 15 minutes Kamal ChabanFPG Pulmonary DiseaseStart: 51-92-0786ohzvdayaeaMNMECR LOPEZ Facility:X0Yhejq: 01-22-2023 End: 35-97-1647euwznlfnckRQTYGA BERRYFacility:B2Iqmsf: 12-28-2022 End: 90-51-8503ffderqttcyMPAQVC BERRYFacility:C2Uizmj: 08-15-2022 End: 81-22-6273vxolnkegjoZhhtm Chaban Other no[facility] Other Start: 80-59-2566Vyrkuf outpatient visit 25 minutes Kamal ChabanFPG Pulmonary DiseaseStart: 08-14-2022 End: 39-06-4478zyjxjmgtrgKJWVLU BERRYFacility:F2Qglvr: 05-10-2022 End: 84-43-2143cznrkhopbtEzxrz Chaban Other no[facility] Other Start: 00-74-4582Kqclfb outpatient visit 25 minutes Kamal ChabanFPG Pulmonary DiseaseStart: 05-01-2022 End: 89-44-0539rmrgeoockoVBCZFX BERRYFacility:P4Xtolz: 04-17-2022 End: 35-08-8115Iwhrergnzv and management of inpatientDANIEL BERRYFacility:H1 Start: 75-74-9319mbeblfpyeyFAIEON BERRYFacility:V8Utwrw: 03-19-2022 End: 46-33-9903Pgimimvwyv and management of inpatientDR ISABELLA MENENDEZ . Facility:F7Dzdtc: 01-02-2022 End: 80-81-6058vtyyrvedmeVnhyf Chacastillo Other [facility] Other Start: 27-02-0154Mrrsdm outpatient new 45 [facility]FPG Pulmonary Disease Procedures DateProcedureProcedure DetailPerforming ClinicianStart: 01-40-9355EA LUNG SCREENING LOW DOSEBasia AKHTAR Work Phone: Start: 79-20-0543CW TOMOSYNTHESIS SCREENING BIBasia AKHTAR Work Phone: Start: 34-83-3959CtcbznczwhwRklvg Hemmer PA Work Phone: Start: 13-62-5349Kalld metabolic panel calcium total Za Jeremias Mason DO Work Phone: Start: 20-35-5460Fahbicp bacterial quanttative colony count urineTricia Jeremias Mason DO Work Phone: Start: 24-48-7609IABI CULT,URINEGeneric External Data ProviderStart: 59-13-9386Zcsng dip stick/tablet rgnt auto w/o microscopyAlessandro Peralta RETAIL SELLING SPECIALIST - COMMITTEE MEMBER Work Phone: Start: 20-69-8048Phboohzlpb exam chest single view Marcela Francois MD Work Phone: Start: 58-02-9569ZTGRBAM, SEPSISAlessandro Peralta RETAIL SELLING SPECIALIST - COMMITTEE MEMBER Work Phone: Start: 90-75-1001Ulczviwsrqnfv (pct)Alessandro Peralta RETAIL SELLING SPECIALIST - COMMITTEE MEMBER Work Phone: Start: 19-90-7142Pagac metabolic panel calcium total Za Jeremias Mason DO Work Phone: Start: 25-40-9277Hhjimdogfb exam chest single view Kemar Powers DO Work Phone: Start: 53-48-8217Jfwvi metabolic panel calcium total Za M Isabella DO Work Phone: Start: 27-16-6432Clh routine ecg w/least 12 lds trcg only w/o i&rMalissa D Delgrosso RETAIL SELLING SPECIALIST - COMMITTEE MEMBER Work Phone: Start: 09-98-7018Xrgmz of phosphorus inorganicTricia M Isabella DO Work Phone: Start: 49-47-5223Yctgy metabolic panel calcium total Za M Isabella DO Work Phone: Start: 99-40-6463XHEBN METABOLIC PANEL W/ REFLEX TO MG FOR LOW KTricia M Isabella DO Work Phone: Start: 02-48-6547Iunantt ionizedTricia M Isabella DO Work Phone: Start: 05-81-5460Kgrex of phosphorus inorganicTricia M Isabella DO Work Phone: Start: 38-83-2330Oujcv of magnesiumTricia M Isabella DO Work Phone: Start: 21-03-0657TEYJK METABOLIC PANEL W/ REFLEX TO MG FOR LOW KTricia M Isabella DO Work Phone: Start: 09-91-5660Dfifjxc ionizedTricia M Isabella DO Work Phone: Start: 15-30-1580Ogeabhb blood reagent stripTricia M Isabella DO Work Phone: Start: 77-14-4411Ruqcasx blood reagent stripTricia M Isabella DO Work Phone: Start: 02-28-6206VPFSJ METABOLIC PANEL W/ REFLEX TO MG FOR LOW KTricia M Isabella DO Work Phone: Start: 17-40-4712Vopfhtj ionizedTricia M Isabella DO Work Phone: Start: 42-73-1442Bcqeofk blood reagent stripTricia M Isabella DO Work Phone: Start: 45-34-6834DOBZQEWE PATHOLOGY REPORTZa Mason DO Work Phone: Start: 09-22-2024 End: 27-49-1016Vwkrbhnkc partial w/anastomosisZa Mason DO Work Phone: Start: 94-92-6747Fbllp metabolic panel calcium total Za Mason DO Work Phone: Start: 94-38-0549Rqlixftbhj exam chest 2 viewsTanisha Rothman MD Work Phone: Start: 00-57-0046CUP CBC WITH AUTO DIFFGeneric External Data ProviderStart: 00-33-1917Eftoh metabolic panel calcium totalTanisha Rothman MD Work Phone: Start: 76-05-1463Eaybn typing serologic aboTanisha Rothman MD Work Phone: Start: 93-17-2518Zru routine ecg w/least 12 lds i&r onlyTanisha Rothman MD Work Phone: Start: 07-68-8068NHGY HISTOLOGY ST VINCENTGeneric External Data ProviderStart: 78-82-1555JjsiyexqtfhWvarpxs ProviderStart: 32-23-0001Bnog tthrc r-t 2d w/wom-mode compl spec&colr dGeeoziel Lombardo MD Work Phone: Start: 68-70-8007UCGLDK MONITOR 8 TO 15 DAYSJeremias Lopez MD Work Phone: Start: 81-66-5047WL DEXA AXIAL SKELETONJeremias Lopez MD Work Phone: Start: 77-00-2621GuyzgwcmedgDfucfr Lester MAStart: 41-77-9259Ftczgfjd of Left Upper Lung Lobe, Via Natural or Artificial Opening Endoscopic, DiagnosticDACHRISEL MARANDAStart: 72-67-5237Jyjyboojrn with Respiratory Ventilation, Less than 24 Consecutive Hours, Continuous Positive AirwayPressure JEREMIAS LOPEZStart: 60-74-0198JsovlsuuyuoYdz 2Start: 90-77-7857GuwzirryswlUqtgef Lester TADEO Plan of Treatment DateCare ActivityDetailAuthorStart: 65-63-8957Zdtnbpfrt for malignant neoplasm of colonNOMS HealthcareStart: 87-99-1353URkV/Tdap/Td vaccine (2 - Tdap) DTaP/Tdap/Td vaccine (2 - Tdap)[facility]Start: 09-[facility]2031 DTaP/Tdap/Td Vaccines (2 - Tdap)DTaP/Tdap/Td Vaccines (2 - Tdap)[facility] HealthcareStart: 83-39-5885Hvwjwizns for malignant neoplasm of colon [facility] HealthcareStart: 75-11-5969Ophogofkm for malignant neoplasm of breast MammogramNOMS HealthcareStart: 08-11-2025 End: 57-82-4918Llmfyge encounter procedureNOMS [place] [facility] MedicineStart: 57-40-2731Dnydkydqs for malignant neoplasm of colonNOMS HealthcareStart: 05-25-7752Hvctjgwiy vaccinationNOMS HealthcareStart: 05-14-2025 End: 29-48-5203Oacwuss encounter ujlfrruna94/21/2025 11:00 AM EDT Office Visit [facility] [place] [facility] [address] [facility] [address] [place] [address] Basia Oreilly PA [address] [facility] [address] [place] [address] [facility] [place] [facility] MedinceStart: 02-19-2025 Medicare Annual Wellness (AWV)Medicare Annual Wellness (AWV)[facility] Start: 01-19-2025 End: 02-55-9196Ewwwcos encounter /28/2025 11:00 AM EDT Office Visit [facility] [address] [facility] [address] [place] [address] Jeremias Lopez MD [address] Manjinder [address] [place] [address] N[facility] CI FMStart: 10-20-2024 End: 84-17-2472WUX Breast - bilateral screeningBilateral screening mammogram with tomosynthesis Imaging Routine Encounter for screening mammogram for malignant neoplasm of breast Expected: 10/20/2024, Expires: 12/18/2025[facility] Work Phone: Comment on above:Expected: 10/20/2024, Expires: 12/18/2025Start: 02-01-5920Bmrphd Wellness Visit (Medicare)Annual Wellness Visit (Medicare)[facility] HospitalStart: 09-22-2024 End: 25-91-5246Bjjosjvzp to same day surgery yhurlm7209/22/2024 1:00 PM EST - 09/22/2024 4:36 PM EST Surgery [facility] [address] [place] [address] Za Mason, DO [address] [place] [address] OPEN SIGMOID RESECTIONSTAZ ORComment on above:OPEN SIGMOID RESECTIONStart: 09-22-2024 End: 96-04-6709Xnwwgeztct vgjinccenaya91/30/2024 1:00 PM EST Anesthesia Event [facility] [address] [place] [address] [place] [address] [place] [id number] [facility] ORStart: 09-22-2024 End: 21-54-8976Zsdxhmhzd partial w/anastomosisBOWEL RESECTION SIGMOID COLECTOMY Diverticulitis 09/22/2024 1:[address] [facility]: 31-80-9617Augcvwrrmx hospital visit by ycptoffdx73/30/2024 1:00 PM EST Hospital Encounter [facility] [address] [place] [address] Za Mason, DO [address] [place] [address] [facility] ORStart: 05-61-6554Ktvwrktra for malignant neoplasm of breastMammogram [facility] HealthcareStart: 07-04-2024 End: 92-84-6158Abcnbok encounter khfneucsc63/11/2024 11:30 AM EDT Consult [facility] [address] [facility] [address] [place] [address] Rickey Johnson DO [address] [facility] [address] [place] [address] GENSStart: 06-26-2024 End: 66-29-5435Xnpoxnw encounter lfxkylbtt27/03/2024 2:30 PM EDT Office Visit [facility] [address] [facility] [address] [place] [address] Isabella Nicolas, ARCHIVIST [address] [facility] [address] [place] [address] ArrivedNOMS CI FMComment on above:ArrivedStart: 06-12-2024 End: 81-84-9099Hxcsrjj encounter mdtsaaazh82/19/2024 2:30 PM EDT Office Visit [facility] [address] [facility] [address] [place] [address] Kerrie Lombardo MD [address] [facility] [address] [place] [address] [facility] CenterStart: 93-82-9501QFZMW-19 Vaccine ( season)COVID-19 Vaccine ( season)[facility] Start: 68-17-2972EJZCD-19 Vaccine ( season)COVID-19 Vaccine ( season)[facility] HealthcareStart: 91-80-9319Jzbffeake vaccinationInfluenza Vaccine (#1)[facility] HealthcareStart: 11-05-7405Rjwtiweds vaccinationFlu vaccine (#1)[facility]Start: 49-12-4450Bsnnxg Wellness Visit (Medicare Advantage)Annual Wellness Visit (Medicare Advantage)[facility]: 13-99-0043Wzapsonbm for malignant neoplasm of breast Breast cancer screenBon [facility]: 21-24-0820Lxtqntcqt for osteoporosisBone Density ScanGenesis Hospital: 06-01-2022 Screening for malignant neoplasm of breastMammogramGenesis Hospital: 18-92-7771Eaorklhkobcj 65+ years Vaccine (3 of 3 - PPSV23 or PCV20)Pneumococcal 65+ years Vaccine (3 of 3 - PPSV23 or PCV20)[facility]: 18-64-1314Pcyslzpixlqr Vaccine: 65+ Years (3 of 3 - PCV20 or PCV21)Pneumococcal Vaccine: 65+ Years (3 of 3 - PCV20 or PCV21)[facility] Start: 15-93-1024Sszascwhsdrx Vaccine: 65+ Years (3 of 3 - PPSV23 or PCV20) Pneumococcal Vaccine: 65+ Years (3 of 3 - PPSV23 or PCV20)[facility] Centerart: 75-66-4372Hsvplxlyezu Syncytial Virus (RSV) or age 60 yrs+ (1 - Risk 60-74 years 1-dose series)Respiratory Syncytial Virus (RSV) or age 60 yrs+ (1 - Risk 60-74 years 1-dose series)[facility]: 91-02-5918LOV High Risk: (Elderly (60+) or Population) (1 - Risk 60-74 years 1-dose series)RSV High Risk: (Elderly (60+) or Population) (1 - Risk 60-74 years 1-dose series)[facility]: 45-40-1676MBS patients and/or patients aged 60+ years (1 - 1-dose 60+ series)RSV patients and/or patients aged 60+ years (1 - 1-dose 60+ series)[facility]: 08-96-9048Nmndpggr vaccine (1 of 2)Shingles vaccine (1 of 2)[facility]: 33-41-5672Kqzlsq Vaccines (1 of 2)Zoster Vaccines (1 of 2)[facility]: 13-60-9614Aorgipavy for malignant neoplasm of colonBon [facility] Start: 08-94-3376Qcayv panelLipidsBon [facility] HospitalStart: 1974 Diabetes mellitus screeningDiabetes ScreeningUK Healthcare Start: 43-48-9130Ycvxccfbm C screeningUK HealthcareStbrownsdale: 75-67-3979Wziqfluuau ScreenDepression ScreenBon [facility]: 70-47-0648Wvaxck wellness visitWelcome to Medicare VisitUK HealthcareStbrownsdale: 90-23-0634Hxemk panelLipid PanelUK HealthcareStbrownsdale: 1956Medicare Annual Wellness VisitMedicare Annual Wellness Visit (AWV)[facility]: 43-41-1740Ircgvwwpi for malignant neoplasm of colonNOMS HealthcareStart: 16-93-1686Btytexv stimulating hormone measurementTSMangum Regional Medical Center – MangumInitiate RT Inhaler-Nebulizer Bronchodilator ProtocolInitiate RT Inhaler-Nebulizer Bronchodilator Protocol Respiratory Care Routine Daily until discontinued starting 09/22/2024 [facility] on above:Daily until discontinued starting 09/22/2024 End: 41-47-1331Ki Wound Care/Ostomy Nurse Eval and TreatIp Wound Care/Ostomy Nurse Eval and Treat Wound Ostomy Routine One Time for 1 Occurrences starting 0 09/26/2024 until 09/26/2024 [facility] on above:One Time for 1 Occurrences starting 09/26/2024 until 09/26/2024MDI TreatmentMDI Treatment Respiratory Care Routine 4X Daily until discontinued starting 09/24/2024 [facility] on above:4X Daily until discontinued starting 09/24/2024Nasal Cannula OxygenNasal Cannula Oxygen Respiratory Care Routine Daily until discontinued starting 09/22/2024 [facility] on above:Daily until discontinued starting 09/22/2024Oxygen therapy [Minimum Data Set]Initiate Oxygen Therapy Protocol Respiratory Care Routine Daily until discontinued starting 09/22/2024 [facility] on above:Daily until discontinued starting 09/22/2024athology studySurgical Pathology Lab Routine Diverticulitis Release Upon Ordering for 1 Occurrences starting 09/22 [facility]Saint [facility] HospitalDorsaVI on above:Release Upon Ordering for 1 Occurrences starting 09/22/2024 End: 55-74-5247BUNCDWSL REJECTIONBon [employer] Work Phone: Comment on above:Once for 1 Occurrences starting 09/22/2024 until 09/22/2024 End: 43-03-6335THXESYXH REJECTIONBon TekmiComment on above:Once for 1 Occurrences starting 09/24/2024 until 09/24/2024Spirometry panelIncentive spirometry Respiratory Care Routine Daily until discontinued starting 09/22/2024 [facility] TekmiComment on above:Daily until discontinued starting 09/22/2024 Immunizations Immunization DateImmunizationNotesCare CuvwizhzDdhsaxan13-56-3500Geddkwyus, High-dose Seasonal, Quadrivalent, Preservative FreeSophia [facility]view General HospitalMygijfnfdw33-51-2591jklvbsenp virus vaccine, unspecified formulationSprisma health greer memorial hospitalia [facility] HospitalQnhmsbakbo93-09-5300xdkwiaklqq, tetanus toxoids and pertussis vaccineSprisma health greer memorial hospitalia [facility] HospitalVujafyozna22-64-8584LIMLT-25 Vaccine Pfizer - Documentation Purposes OnlyCritical Access Hospital Other [facility] Other [id number] Vaccine Pfizer - Documentation Purposes OnlyCritical Access Hospital Other [facility] Other [id number] Vaccine Pfizer - Documentation Purposes [facility] Other [facility] Other [id number], high dose seasonal, preservative-freeSophia [facility] HospitalPsdoyfeowb37-47-4937otthsmuq influenza, intradermal, preservative freeSophia [facility] HospitalDnnljsceom54-74-0417rusukfby influenza, intradermal, preservative freeSophia [facility] 57-44-3189farmuyvf influenza, intradermal, preservative freeSophia [facility] HospitalLnzcaslkty51-98-7775lywbsnlahvxj polysaccharide vaccine, 23 valentSophia [facility] HospitalTsfrqtjlsr39-84-2165jkibfoutywqh conjugate vaccine, 13 Naomy Batista [facility] MilwaukeeCmlfnlvwwf58-11-9344qyljgjgo influenza, intradermal, preservative freeSophia Lester [facility] [place] Work Phone: Payers DatePayer CategoryPayerPolicy [id number] Health [id number] 1.2.840.193362.1.13.239.2.7.3.404485. [id number] 1.2.840.247726.1.13.239.2.7.3.094[id number] 1.2.840.581501.1.13.239.2.7.3.188378.84552-28-8908Hrbcubx Health Insurance 1.2.840.708621.1.13.693.2.7.9.479993.723030.07989-39-6921IwhvwaoZNAM [facility] xxxxxxxxGEHA 2022-Present [address] [address] [place] [address] 1.2.840.039428.1.13.693.2.7.3.741668.315 2022Medicare (Managed Care) 1.2.840.2052[id number] 2021Medicare 1.2.840.493622.1.13.693.2.7.3.311696.315 [id number] 1.2.840.820431.1.13.239.2.7.3.678528.315 [id number] 2.16.840.9.230681.63433677-37-7376Jkhi-[id number] [id number] 2.16.840.1.974572.3.57[id number] 2.16.840.1.608275.3.57[id number] 2.16.840.1.599510.3.57[id number] 2.16.840.1.540484.3.57[id number] 2.840.1.942260.3.57[id number] 2.840.1.786196.3.57[id number] 2.840.1.378037.3.57[id number] 2.840.1.399609.3.57[id number] 2.840.1.206176.3.57[id number] 2.840.1.500607.3.57[id number] 2.840.1.948369.3.57[id number] 2.840.1.833747.3.57[id number] 2.16840.1.211271.3.579.[id number] 2.16840.1.109484.3.57[id number] 2.16.840.1.163945.3.57[id number] 2.16.840.1.217799.3.57[id number] 2.16.840.1.433461.3.579.2.[id number] 2..840.1.160266.3.57[id number] 2.16.840.1.006541.3.579.2.1259 Social History DateTypeDetailFacilityStart: 04-03-2024 End: 73-05-9577Ubu Assigned At [facility] Knowthena Other Start: 04-03-2024 End: 67-73-0933Rcuerya smoking status NHISEx-smokerNOMS HealthcareStart: 21-15-6871Fqnxecu of tobacco useCurrent smokerNOMS HealthcareStart: 03-22-1974 History of tobacco useCigarette SmokerNOMS HealthcareStart: 04-03-2024 End: 58-69-5110Hnyyjlgbxt smoked current (pack per day) - Qquxyfil0PEZZ HealthcareStart: 11-21-2023 End: 49-23-2079Vqntmiq use and exposureSmokeless tobacco non-userNOMS Healthcare Start: 99-05-8278Hqu assigned at birthNot on fileNOWA HealthcareStart: 09-04-2024 End: 46-62-8702Sxzmvtaqy beverage intakeEx-drinker (finding)[facility] Work Phone: Start: 05-24-2024 End: 74-63-0502Bymrzryf to SARS-CoV-2 (event)Not sureUK HealthcareStart: 04-28-2024 End: 22-19-1589Sjllpslzx beverage intakeCurrent drinker of alcohol (finding) [facility] Work Phone: Start: 00-56-3258Jtibqwly abuseDeniesBanner [facility] TekmiStart: 07-06-3661Cfclxuj Commentcurrently rare usage right nowBon Siteheart [facility] HospitalHas the electric, gas, oil, or water company threatened to shut off services in your home in past 12MoNoBon [facility] Get10(I/We) worried whether (my/our) food would run out before (I/we) got money to buy more.Never trueBon [facility]heart [facility] HospitalStart: 91-44-0830Mnpydub smoking status NHISSmokes tobacco dailySaint John's Saint Francis Hospital Functional Status VldjAykzmykrcdEyrqueChtnwjdh41-12-4647Gsnxomf Health Questionnaire 2 item (PHQ- 2) [Reported][facility] Clinical Notes 01-02-2022 to 06-17-2025 Note Date & KzpjLulqMdfafbie97-98-1058 Miscellaneous Notes* Telephone Encounter - HERMILO Flores - 06/17/2025 4:52 PM EDT OARRS reviewed, Rx sent into patient's pharmacy. * Telephone Encounter - CARLIE BRITO - 06/17/2025 12:37 PM EDT OV 05/14/25 RF 02/12/25 documented in this encounterSaint John's Saint Francis HospitalCfyohkvwds06-83-3861 Telephone encounter Note* Telephone Encounter - HERMILO Flores - 06/17/2025 4:52 PM EDT OARRS reviewed, Rx sent into patient's pharmacy. [facility] HospitalVdstyudafh92-62-6849 Telephone encounter Note* Telephone Encounter - CARLIE BRITO - 06/17/2025 12:37 PM EDT OV 05/14/25 RF 02/12/25 NOMS Qeksmibcfo76-83-5087 History of Present illness Narrative* HERMILO Flores - 05/14/2025 11:00 AM EDT Images from the original note were not included. HPI Medication Problem Additional comments: She is having a hard time getting her Spiriva from [facility] - she has tried online to refill but has not heard from them - she has not tried to call them though. She is not out of themed yet. Med Refill Additional comments: Albuterol for neb, magnesium, she cannot get the Air Duo so would like to discuss something in place of that. Last edited by HERMILO Flores on 05/14/2025 1:07 PM. Subjective Patient ID: Lilliam Bajwa is a 69 y.o. female who presents for rheumatoid arthritis. Lilliam is present today with daughter for follow up rheumatoid arthritis. She is currently on Tramadol and it is working well for her. States pulled a few weeds and thinks one of them was poison ivonne. Now has rash on her face, left ear, torso, and both arms. Markedly pruritic. Requesting Prednisone. C/o Depression: At her last o/v she was started on Rexulti and it was working well for her but it is on backorder at [facility] for about 2 months and is starting to have no energy and grumpy. Current Outpatient Medications on File Prior to Visit Medication Sig Dispense Refill alendronate (Fosamax) 70 MG tablet TAKE 1 TAB BY MOUTH ON EMPTY STOMACH WITH FULL GLASS OF WATER ONCE A WEEK.DO NOT TAKE ANYTHING ELSE OR LIE DOWN FOR NEXT 30 MINS. 12 tablet 3 apixaban (Eliquis) 5 MG tablet TAKE 1 TABLET (5 MG) BY MOUTH IN THE MORNING AND BEFORE BEDTIME 60 tablet 11 metoprolol succinate XL (Toprol-XL) 25 MG 24 hr tablet TAKE 1 TABLET BY MOUTH EVERY DAY IN THE MORNING 90 tablet 3 acetaminophen (Tylenol) 500 MG tablet Take 500 mg by mouth every 6 (six) hours if needed for mild pain albuterol HFA 90 mcg/act inhaler INHALE 2 PUFFS BY MOUTH EVERY 4 HOURS NEEDED 25.5 g 5 Calcium Carb-Cholecalciferol (CALTRATE 600+D3 PO) Take by mouth 2 (two) times a day clonazePAM (KlonoPIN) 0.5 MG tablet Take 1 tablet (0.5 mg) by mouth every 8 (eight) hours if neededfor anxiety 90 tablet 0 escitalopram (Lexapro) 20 MG tablet TAKE 1 TABLET BY MOUTH EVERY DAY 90 tablet 4 levothyroxine (Synthroid, Levoxyl) 88 MCG tablet TAKE 1 TABLET BY MOUTH EVERY DAY 100 tablet 3 Loratadine (Claritin) 10 MG capsule Take by mouth Daily Multiple Vitamin (multivitamin) tablet Take 1 tablet by mouth Daily oxygen (O2) gas Inhale 2 L/min continuously via nasal canula traMADol (Ultram) 50 MG tablet Take 1 tablet (50 mg) by mouth every 8 (eight) hours if needed for severe pain 90 tablet 0 [DISCONTINUED] albuterol (2.5 MG/3ML) 0.083% nebulizer solution Take 3 mL (2.5 mg) by nebulization every 4 (four) hours if needed for shortness of breath 75 mL 11 [DISCONTINUED] Brexpiprazole (Rexulti) 0.25 MG tablet Take 0.25 mg by mouth Daily (Patient not taking: Reported on 05/14/2025) 30 tablet 2 [DISCONTINUED] fluticasone-salmeterol, sensor, (AirDuo Digihaler) 113-14 MCG/ACT inhaler Inhale 1 puff in the morning and 1 puff before bedtime. Rinse mouth with water after use to reduce aftertaste and incidence of candidiasis. Do not swallow.. (Patient not taking: Reported on 05/14/2025) 1 each 5 [DISCONTINUED] Magnesium Oxide (MAGOX 400 PO) Take by mouth Daily [DISCONTINUED] tiotropium (Spiriva HandiHaler) [address] 1 capsule (18 mcg) into inhaler and inhale in the morning. 100 capsule 3 No current facility-administered medications on file prior to visit. I have reviewed and reconciled the history and medication list with the patient today. 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 COPD (chronic obstructive pulmonary disease) (HCC) Depression Disease of thyroid gland History of being hospitalized 06/07/2024 SBO CLARISSE (obstructive sleep apnea) Pulmonary fibrosis (HCC) 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80 kg/m Smoking Status Former BSA 1.5 m Review of Systems Constitutional: Negative for chills, fatigue and fever. Respiratory: Positive for shortness of breath and wheezing. Negative for cough. Cardiovascular: Negative for chest pain, palpitations and leg swelling. Gastrointestinal: Negative for abdominal pain, constipation, diarrhea, nausea and vomiting. Skin: Positive for rash. Objective Physical Exam Constitutional: General: She is not in acute distress. Appearance: Normal appearance. She is well-developed. HENT: Head: Normocephalic and atraumatic. Left Ear: Tympanic membrane and ear canal normal. Ears: Comments: Erythema noted lower 1/2 of left pinna Eyes: General: No scleral icterus. Conjunctiva/sclera: Conjunctivae normal. Cardiovascular: Rate and Rhythm: Normal rate and regular rhythm. Heart sounds: Normal heart sounds. No murmur heard. Pulmonary: Effort: Prolonged expiration present. No respiratory distress. Breath sounds: Decreased air movement present. Examination of the right-middle field reveals wheezing. Examination of the left-middle field reveals wheezing. Examination of the right-lower field reveals wheezing. Examination of the left- lower field reveals wheezing. Wheezing (Expiratory) present. No rhonchi or rales. Comments: On O2 via nasal cannula Abdominal: Comments: Ostomy left side of abdomen, possible reducible hernia superior to colostomy site, no erythema, not firm, not tender Musculoskeletal: Comments: Arthritic changes noted of bilateral hands. Skin: General: Skin is warm and dry. Capillary Refill: Capillary refill takes less than 2 seconds. Findings: Erythema and rash present. Rash is papular. Comments: Erythematous papules BUE, left lateral torso, umbilical region, face and left ear Neurological: Mental Status: She is alert and oriented to person, place, and time. Cranial Nerves: No cranial nerve deficit. Sensory: No sensory deficit. Motor: No weakness. Gait: Gait normal. Deep Tendon Reflexes: Reflexes normal. Psychiatric: Mood and Affect: Mood is depressed (Mildly). Behavior: Behavior normal. Assessment/Plan Diagnoses and all orders for this visit: Panlobular emphysema (HCC) - albuterol (2.5 MG/3ML) 0.083% nebulizer solution; Take 3 mL (2.5 mg) by nebulization every 4 (four) hours if needed for shortness of breath - Fluticasone-Salmeterol (Advair Diskus) 250-50 MCG/ACT aerosol powder ; Inhale 1 puff every 12 (twelve) hours Patient has been having a hard time getting the Airduo. Sent in Advair Diskus for her which she hasbeen on in the past and did well with, she is to rinse her mouth after each use. Moderate episode of recurrent major depressive disorder (HCC) - Brexpiprazole (Rexulti) 0.25 MG tablet; Take 0.25 mg by mouth Daily Rx sent to patient's mail order as her local pharmacy has been having trouble getting it for her. It was very helpful for her mood and motivation. Pt can contact the office if she has any trouble getting the medication. Acute exacerbation of chronic obstructive airways disease (HCC) - tiotropium (Spiriva HandiHaler) 18 MCG inhalation capsule; Place 1 capsule (18 mcg) into inhaler and inhale in the morning. Refill provided on Spiriva for the patient. Advised the Prednisone should help with her breathing in addition to the rash. Hypomagnesemia - magnesium oxide (Mag-Ox) 400 MG tablet; Take 1 tablet (400 mg) by mouth Daily Refill provided on the above. Rhus dermatitis - predniSONE (Deltasone) 10 MG tablet; Take 1 tablet (10 mg) by mouth 3 (three) times a day for 3 days, THEN 1 tablet (10 mg) 2 (two) times a day for 3 days, THEN 1 tablet (10 mg) Daily for 3 days. - triamcinolone (Kenalog) 0.1 % cream; Apply topically 2 (two) times a day as needed for rash for up to 14 days Start above as prescribed. Reminded pt to take the steroid with food. No NSAIDs while on the steroid. Can use the cream as needed to help with pruritus. 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) Medication choice and dosage is appropriate for patient's current medical conditions. Patient will continue to be required to be seen in our office at least every three months for monitoring. At eachfollow up visit I will reassess the patient's need for the medication. Patient is to have this medication prescribed only through this office. Failure to follow the rules and regulations will result in tapering and discontinuation of medications if applicable. Patient verbalized understanding. OARRS Report was reviewed for this patient. Tramadol filled on 04/13. She can call next week for the refill. Colostomy in place Discussed s/s that would warrant emergent evaluation. Otherwise follow up with her surgeon, Dr. Augusta Alves for any concerns. Follow up in about 3 months (around 08/14/2025) for Medication Follow Up. documented in this encounterNOPhelps HealthRyhhvotwkj73-74-2456 Telephone encounter Note* Telephone Encounter - CARLIE BRITO - 04/20/2025 2:57 PM EDT Patient returned call and was notified of her test results [facility] Btphdegsho27-44-5759 Miscellaneous Notes* Telephone Encounter - CARLIE BRITO - 04/20/2025 2:57 PM EDT Patient returned call and was notified of her test results * Telephone Encounter - CARLIE BRITO - 04/20/2025 2:55 PM EDT Unable to LM, phone would just ring * Telephone Encounter - HREMILO Flores - 04/20/2025 9:16 AM EDT Please let pt know that her Mammogram was negative, continue routine yearly screenings. Also the CTof her lungs showed no nodules or masses. documented in this encounterSaint John's Saint Francis HospitalMcctbbfnin48-16-0120 Telephone encounter Note* Telephone Encounter - CARLIE BRITO - 04/20/2025 2:55 PM EDT Unable to LM, phone would just ring [facility] HospitalCqnmmhybht95-36-8839 Telephone encounter Note* Telephone Encounter - HERMILO Flores - 04/20/2025 9:16 AM EDT Please let pt know that her Mammogram was negative, continue routine yearly screenings. Also the CTof her lungs showed no nodules or masses. [facility] HospitalQymmhjirjk65-46-2644 Telephone encounter Note* Telephone Encounter - HERMILO Flores - 04/20/2025 9:14 AM EDT OARRS reviewed, Rx sent into patient's pharmacy. [place] [address]Rjvttmzybs24-35-9689 Miscellaneous Notes* Telephone Encounter - HERMILO Flores - 04/20/2025 9:14 AM EDT OARRS reviewed, Rx sent into patient's pharmacy. documented in this [facility]04-10-2025 Telephone encounter Note* Telephone Encounter - HERMILO Flores - 01/01/2025 4:22 PM EDT OARRS reviewed, Rx sent into patient's pharmacy. [facility] HospitalImkdtdxsvy64-63-2990 Miscellaneous Notes* Telephone Encounter - HERMILO Flores - 01/01/2025 4:22 PM EDT OARRS reviewed, Rx sent into patient's pharmacy. documented in this [facility]03-12-2025 Telephone encounter Note* Telephone Encounter - HERMILO Flores - 12/03/2024 7:25 PM EDT OARRS reviewed, Rx sent into patient's pharmacy. [facility] HospitalXarxomrlnw36-78-2198 Miscellaneous Notes* Telephone Encounter - HERMILO Flores - 12/03/2024 7:25 PM EDT OARRS reviewed, Rx sent into patient's pharmacy. documented in this [facility]02-03-2025 Telephone encounter Note* Telephone Encounter - Jeremias Lopez MD - 10/27/2024 3:27 PM EST Rx sent. [facility] HospitalYgbyctzzev06-10-9364 Miscellaneous Notes* Telephone Encounter - Jeremias Lopez MD - 10/27/2024 3:27 PM EST Rx sent. * Telephone Encounter - CARLIE BRITO - 10/27/2024 12:03 PM EST Patient called and states she finished her Z-pack but she is still very congested and she wanted toknow if she could have a steroid called in to see if that will help her. documented in this encounterSaint John's Saint Francis HospitalUrwvflbmia16-66-8202 Telephone encounter Note* Telephone Encounter - CARLIE BRITO - 10/27/2024 12:03 PM EST Patient called and states she finished her Z-pack but she is still very congested and she wanted toknow if she could have a steroid called in to see if that will help her. [facility] HospitalAgplaeidno80-91-7458 History of Present illness Narrative* HERMILO Flores - 10/20/2024 1:30 PM EST Images from the original note were not included. HPI URI Additional comments: Admits sinus pressure, bilateral ear discomfort, nasal congestion, runny nose,post nasal drainage, cough with yellow/green phlegm, SOB, wheezing, fatigue. She has been sick for about 1 week. She has been taking Mucinex sinus and cold. She feels she is getting worse. Last edited by Ana Laura Jackman LPN on 10/20/2024 1:43 PM. Subjective Patient ID: Lilliam Bajwa is a 69 y.o. female who presents for hospital follow up. Flowsheet Row Patient Outreach from 10/02/2024 in [facility] with Kacy Blankenship LPN Hospital Information ED, Hospital or Nursing Home Facility Discharge? Hospital Patient has been contacted within two business days of discharge No Have two attempts been made to contact the patient within two business days of being discharged? Yes Diagnosis diverticulitis Discharge Date 09/29/24 Discharged To: Home Setting Discharge [facility] Engagement Call Start Time 0835 Admission Date 09/22/24 Medications Discharge medications reviewed and reconciled from hospital? No [unable to reach pt.] Does the patient have all medications ordered at discharge? Not applicable [unable to reach pt.] Appointments Self Management Patient Teaching Wrap Up Call End Time 0837 Pt had a small bowel obstruction and now has a colostomy. She follows back up with her surgeon on November 03, 2024 (Dr. Mason at [facility] States is healing well from her surgery. Is supplementing with protein shakes, but admits her appetite is not great. Is staying hydrated. Current Outpatient Medications on File Prior to Visit Medication Sig Dispense Refill acetaminophen (Tylenol) 500 MG tablet Take 500 mg by mouth every 6 (six) hours if needed for mild pain albuterol (2.5 MG/3ML) 0.083% nebulizer solution Take 3 mL (2.5 mg) by nebulization every 4 (four) hours if needed for shortness of breath 75 mL 11 albuterol HFA 90 mcg/act inhaler INHALE 2 PUFFS BY MOUTH EVERY 4 HOURS NEEDED 25.5 g 5 alendronate (Fosamax) 70 MG tablet Take 1 tablet (70 mg) by mouth every 7 (seven) days Take in the morning with a full glass of water, on an empty stomach, and do not take anything else by mouth or lie down for the next 30 min. 4 tablet 11 apixaban (Eliquis) 5 MG tablet Take 1 tablet (5 mg) by mouth in the morning and 1 tablet (5 mg) before bedtime. 60 tablet 11 Calcium Carb-Cholecalciferol (CALTRATE 600+D3 PO) Take by mouth 2 (two) times a day cholecalciferol (Vitamin D-3) 25 MCG (1000 UT) tablet Take 1 tablet by mouth Daily clonazePAM (KlonoPIN) 0.5 MG tablet Take 1 tablet (0.5 mg) by mouth every 8 (eight) hours if neededfor anxiety 90 tablet 1 escitalopram (Lexapro) 20 MG tablet TAKE 1 TABLET BY MOUTH EVERY DAY 90 tablet 4 Ferrous Sulfate (IRON PO) Take 1 tablet by mouth in the morning. fluticasone-salmeterol, sensor, (AirDuo Digihaler) 113-14 MCG/ACT inhaler Inhale 1 puff in the morning and 1 puff before bedtime. Rinse mouth with water after use to reduce aftertaste and incidence of candidiasis. Do not swallow.. levothyroxine (Synthroid, Levoxyl) 88 MCG tablet TAKE 1 TABLET BY MOUTH EVERY DAY 100 tablet 3 Loratadine (Claritin) 10 MG capsule Take by mouth Daily Magnesium Oxide (MAGOX 400 PO) Take by mouth Daily metoprolol succinate XL (Toprol-XL) 25 MG 24 hr tablet TAKE 1 TABLET BY MOUTH EVERY DAY IN THE MORNING 90 tablet 3 oxygen (O2) gas Inhale 2 L/min continuously via nasal canula tiotropium (Spiriva HandiHaler) [address] 1 capsule (18 mcg) into inhaler andinhale in the morning. 100 capsule 3 No current facility-administered medications on file prior to visit. I have reviewed and reconciled the history and medication list with the patient today. Allergies Allergen Reactions Bupropion Itching Social History Tobacco Use Smoking status: Former Average packs/day: 1 pack/day for 50.0 years (50.0 ttl pk-yrs) Types: Cigarettes Start date: 03/22/1974 Smokeless tobacco: Never Vaping Use Vaping status: Never Used Substance Use Topics Alcohol use: Not Currently Family History Problem Relation Name Age of Onset Cancer Mother COPD Father Past Medical History: Diagnosis Date Allergic Anxiety COPD (chronic obstructive pulmonary disease) (CMS/HCC) Depression (CMS/HCC) Disease of thyroid gland (CMS/HCC) History of being hospitalized 06/07/2024 SBO CLARISSE (obstructive sleep apnea) Pulmonary fibrosis (CMS/HCC) Past Surgical History: Procedure Laterality Date BREAST BIOPSY Left BRONCHOSCOPY CARDIAC CATHETERIZATION 2010 SECTION, LOW TRANSVERSE COLONOSCOPY 07/18/2024 With Polypectomy COLOSTOMY 06/08/2024 Transverse Loop FOOT SURGERY Right Growth removed from heel HYSTERECTOMY OTHER SURGICAL HISTORY Right Thumb Fusion REVISION / TAKEDOWN COLOSTOMY 09/22/2024 Open sigmoid resection, takedown of rectovaginal fistula, takedown of transverse loop colostomy, mobilization of splenic flexure, creation of new descending colostomy Visit Vitals BP 106/84 Pulse 107 Temp 97.5 F Resp 16 Ht 5' 1 Wt 106 lb 12.8 oz SpO2 92% BMI 20.18 kg/m Smoking Status Former BSA 1.44 m Review of Systems Constitutional: Positive for appetite change (Decrease) and fatigue. Negative for chills and fever. HENT: Positive for congestion, ear pain, postnasal drip, rhinorrhea, sinus pressure and sinus pain.Negative for sore throat. Respiratory: Positive for cough, shortness of breath and wheezing. Cardiovascular: Negative for chest pain, palpitations and leg swelling. Gastrointestinal: Negative for abdominal pain, constipation, diarrhea, nausea and vomiting. Objective Physical Exam Constitutional: General: She is not in acute distress. Appearance: She is well-developed. She is ill-appearing. HENT: Head: Normocephalic and atraumatic. Right Ear: Ear canal normal. A middle ear effusion is present. Left Ear: Ear canal normal. A middle ear effusion is present. Nose: Congestion present. Right Turbinates: Swollen. Left Turbinates: Swollen. Comments: Turbinates erythematous Mouth/Throat: Mouth: Mucous membranes are moist. Pharynx: Posterior oropharyngeal erythema present. Eyes: General: No scleral icterus. Conjunctiva/sclera: Conjunctivae normal. Cardiovascular: Rate and Rhythm: Normal rate and regular rhythm. Heart sounds: Normal heart sounds. No murmur heard. Pulmonary: Effort: Prolonged expiration present. Breath sounds: Wheezing (Throughout, expiratory) present. No rhonchi or rales. Comments: On O2 via nasal cannula Lymphadenopathy: Cervical: No cervical adenopathy. Skin: General: Skin is warm and dry. Neurological: General: No focal deficit present. Mental Status: She is alert and oriented to person, place, and time. Psychiatric: Mood and Affect: Mood normal. Behavior: Behavior normal. Assessment/Plan Diagnoses and all orders for this visit: COPD exacerbation ([facility]) - azithromycin (Zithromax) 250 MG tablet; Take 2 tablets (500 mg) by mouth Daily for 1 day, THEN 1 tablet (250 mg) Daily for 4 days. Start the above as directed. Reviewed potential s/e with patient. Can take a probiotic while on antibiotic. Increase water intake, get plenty of rest. Follow up if no improvement in one week. Colostomy in place ([facility]) Patient saw Dr. Za Mason, general surgery for follow up on 10/09/2024, scheduled to see Dr. Mason again on 11/03/2024. She is healing well. Has the supplies she needs. Encouraged continue protein shakes daily to supplement diet. History of open sigmoidectomy The patient was seen today in follow up of recent hospital stay. All available hospital records were reviewed and discussed with the patient. Hospital discharge meds were reviewed. Any changes are asnoted. Acute non-recurrent frontal sinusitis - azithromycin (Zithromax) 250 MG tablet; Take 2 tablets (500 mg) by mouth Daily for 1 day, THEN 1 tablet (250 mg) Daily for 4 days. Zithromax as prescribed. Encounter for screening mammogram for malignant neoplasm of breast - Bilateral screening mammogram with tomosynthesis; Future Provided patient with an order for an updated Mammogram. If results are negative/normal, will plan to continue with routine yearly screenings. Chronic hypoxic respiratory failure, on home oxygen therapy (CMS/HCC) It is medically necessary for pt to have oxygen concentrator. She would benefit greatly from use ofa portable oxygen concentrator due to cumbersome nature of oxygen tank when active/ambulating. Chronic obstructive pulmonary disease, unspecified COPD type (CMS/HCC) Continue Albuterol HFA as needed. Encouraged her to use her nebulizer at least 1-2 times a day for the next few days. Panlobular emphysema ([facility]) Continue Maintenance inhaler daily. Oxygen dependent It is medically necessary for patient to use supplemental oxygen continuously. Currently using via nasal cannula at 2 L/min with good relief. Follow up in about 3 months (around 01/18/2025). [facility] in [facility] [id number] History of Present illness Narrative* Tricia Patel - 09/29/2024 10:47 AM EST CLINICAL PHARMACY NOTE: MEDS TO BEDS Total # of Prescriptions Filled: 4 The following medications were delivered to the patient: Oxycodone 5mg Acetaminophen es 500mg Methocarbamol 750mg Nitrofurantoin mono 100mg Additional Documentation: * Kemar Powers DO - 09/29/2024 8:59 AM EST Images from the original note were not included. [facility] Office: [phone] Balbir Henderson DO, Warren Sierra DO, Kemar Powers DO, Sean Martinez DO, Kaveh Hurtado MD, Patsy Parekh MD, Edwardo Mckeon MD, Rosalind Randolph MD, Samy Vicente MD, Steve Begum MD, Luis M Kapoor MD, Stella Aleman DO, Ranjit Christian MD, Kayden Lozada MD, Vasiliy Henderson DO, Marianne Gutierrez MD, Og Spencer DO, Myra Maldonado MD, Lydia Lemus MD, Kathy Pacheco MD, Gus Stanley MD, Anjel Meeks MD, Vega Comer MD, Bindu Garcia MD, Tangela Forman MD, Enoch Joyce MD, Alfa Bullard MD, Jeremias Enciso DO, Sesar Dumont MD, Stella Kelly MD, Andrew Kelly MD, Zoila Archibald, COMMITTEE MEMBER, Zandra Kay, COMMITTEE MEMBER, Jeremias Whiteside, COMMITTEE MEMBER, Marium Muniz, [facility], Lashon Li, COMMITTEE MEMBER, Za Soares, COMMITTEE MEMBER, Marilynn Crocker, COMMITTEE MEMBER, Elvie Marcus, COMMITTEE MEMBER, Janet León, PA-C, Denise Maddox PA-C, Kacy Reynolds, COMMITTEE MEMBER, Alessandro Peralta, COMMITTEE MEMBER, Kandi Mejia, COMMITTEE MEMBER, Laly Rolle, COMMITTEE MEMBER, Meme Caldera, COMMITTEE MEMBER, Amanda French, COMMITTEE MEMBER, Em Chávez, COMMITTEE MEMBER [facility] IN-PATIENT SERVICE [facility] Progress Note 09/29/2024 8:59 AM Name: Lilliam Bajwa Acct: [id number] Room: [address] [place] [address] Day: 7 Admit Date: 09/22/2024 10:56 AM PCP: Jeremias Lopez MD Code Status: Full Code Subjective: C/C: Diverticulosis Interval History Status: improved. Patient is resting in bed, is tolerated dietary advancement. Denies chest pain, shortness of breath, nausea or vomiting, fevers or chills. Discharged home today per surgery. Brief History: Per previous documentation Patient presents for scheduled open sigmoid resection. She has a past medical history significant for persistent atrial fibrillation, hypertension, pulmonary fibrosis, CLARISSE, COPD, SBO status post colostomy. We are consulted for medical management. Review of Systems: Constitutional: negative for chills, fevers, sweats Respiratory: negative for cough, dyspnea on exertion, shortness of breath, wheezing Cardiovascular: negative for chest pain, chest pressure/discomfort, lower extremity edema, palpitations Gastrointestinal: negative for abdominal pain, constipation, diarrhea, nausea, vomiting Neurological: negative for dizziness, headache Medications: Allergies: Allergies Allergen Reactions Bupropion Itching Current Meds: Scheduled Meds: ibuprofen 600 mg Oral Q6H nitrofurantoin (macrocrystal-monohydrate) 100 mg Oral 2 times per day methocarbamol 750 mg Oral Q6H famotidine 20 mg Oral BID guaiFENesin 600 mg Oral BID albuterol sulfate HFA 2 puff Inhalation 4x Daily RT potassium chloride 20 mEq Oral BID apixaban 5 mg Oral BID escitalopram 20 mg Oral Daily levothyroxine 88 mcg Oral Daily sodium chloride flush 10 mL IntraVENous 2 times per day acetaminophen 1,000 mg Oral 3 times per day budesonide-formoterol 2 puff Inhalation BID RT tiotropium 2 puff Inhalation Daily RT metoprolol succinate 25 mg Oral Daily Continuous Infusions: sodium chloride PRN Meds: oxyCODONE OR [DISCONTINUED] oxyCODONE, sodium phosphate 9.06 mmol in sodium chloride 0.9 % 250 mL IVPB OR sodium phosphate 18.15 mmol in sodium chloride 0.9 % 250 mL IVPB, metoprolol, simethicone, albuterol sulfate HFA, sodium chloride flush, sodium chloride, magnesium sulfate, ondansetron OR ondansetron, clonazePAM, metoprolol Data: Past Medical History: has a past medical history of Bowel obstruction (HCC), Chronic hypoxic respiratory failure, on home oxygen therapy, Colostomy in place (HCC), Colovaginal fistula, COPD without exacerbation (HCC), Hypothyroidism, Longstanding persistent atrial fibrillation (HCC), On home oxygentherapy, Primary hypertension, Pulmonary fibrosis (HCC), and Sleep apnea. Social History: reports that she has quit smoking. Her smoking use included cigarettes. She has never used smokeless tobacco. She reports current alcohol use. She reports that she does not use drugs. Family History: Family History Problem Relation Age of Onset Lung Cancer Mother COPD Father Vitals: BP (!) 122/91 Pulse 91 Temp 98.1 F (36.7 C) (Oral) Resp 18 Ht 1.549 m (5' 0.98 ) Wt 50.3 kg (111 lb) SpO2 97% BMI 20.98 kg/m Temp (24hrs), Av.8 F (36.6 C), Min:97.3 F (36.3 C), Max:98.4 F (36.9 C) No results for input(s): POCGLU in the last 72 hours. I/O (24Hr): Intake/Output Summary (Last 24 hours) at 09/29/2024 0859 Last data filed at 09/29/2024 0823 Gross per 24 hour Intake 250 ml Output 1915 ml Net -1665 ml Labs: Hematology: Recent Labs 09/27/24 0510 09/28/24 0351 09/29/24 0520 WBC 9.3 14.6* 13.1* RBC 3.50* 3.63* 3.46* HGB 10.5* 10.8* 10.3* HCT 30.1* 31.4* 30.0* MCV 86.0 86.5 86.7 MCH 30.0 29.8 29.8 MCHC 34.9* 34.4 34.3 RDW 14.2 14.6* 14.7* PLT 410 454* 487* MPV 9.2 9.2 9.3 Chemistry: Recent Labs 09/26/24 1459 09/27/24 0510 09/28/24 0351 09/29/24 0520 NA -- 135* 134* 131* K -- 3.6* 4.0 4.0 CL -- 99 99 99 CO2 -- 26 22 23 GLUCOSE -- 96 86 93 BUN -- <1* 3* 4* CREATININE -- 0.4* 0.4* 0.4* MG -- 2.0 2.0 1.9 ANIONGAP -- 10 14 9 LABGLOM -- >90 >90 >90 CALCIUM -- 9.1 8.8 8.8 PHOS 3.1 3.0 3.3 -- No results for input(s): LABALBU , LABA1C , E8VGLTI , FT4 , TSH , AST , ALT , LDH , GGT , ALKPHOS , BILITOT , BILIDIR , AMMONIA , AMYLASE , LIPASE , LACTATE , CHOL , HDL , CHOLHDLRATIO , TRIG , VLDL , YRC56TC , PHENYTOIN , PHENYF , URICACID , POCGLU in the last 72 hours. Invalid input(s): PROT , I9MBFQT , LABGGT , LDLCHOLESTEROL ABG:No results found for: POCPH , PHART , PH , POCPCO2 , NET9RPT , PCO2 , POCPO2 , PO2ART , PO2 , POCHCO3 , KLR7SJA , HCO3 , NBEA , PBEA , BEART , BE , THGBART , THB , RRB9QBU , TSHG4YFM , E6KOTNML , O2SAT , FIO2 No results found for: SPECIAL No results found for: CULTURE Radiology: No results found. Physical Examination: General appearance: alert, cooperative and no distress Mental Status: oriented to person, place and time and normal affect Lungs: clear to auscultation bilaterally, normal effort Heart: regular rate and rhythm, no murmur Abdomen: soft, nontender, nondistended, normal bowel sounds, no masses, hepatomegaly, splenomegaly Extremities: no edema, redness, tenderness in the calves Skin: no gross lesions, rashes, induration Assessment: Hospital Problems Last Modified POA * (Principal) Diverticulitis of colon 09/22/2024 Yes COPD without exacerbation (HCC) 09/22/2024 Yes Chronic hypoxic respiratory failure, on home oxygen therapy 09/22/2024 Yes Primary hypertension 09/22/2024 Yes Longstanding persistent atrial fibrillation (HCC) 09/22/2024 Yes Hypothyroidism 09/22/2024 Yes Secondary hypercoagulable state (HCC) 09/22/2024 Yes Hyponatremia 09/22/[address] (HCC) 09/24/2024 Yes Plan: Diet as ordered Incentive spirometry, oxygen aerosols as needed Continue home antihypertensive therapy Ostomy care Outpatient surgery follow-up Medically stable for discharge Lilliam Bajwa was evaluated today and a DME order was entered for a wheeled walker because she requires this to successfully complete daily living tasks of ambulating. A wheeled walker is necessary due to the patient's unsteady gait, upper body weakness, and inability to warehouse picker an ambulation device; and she can ambulate only by pushing a walker instead of a lesser assistive device such as a cane, crutch, or standard walker. The need for this equipment was discussed with the patient andshe understands and is in agreement. Kemar Powers DO 09/29/2024 8:59 AM * Carole Kinney DO - 09/29/2024 5:33 AM EST General Surgery: Daily Progress Note PATIENT NAME: Lilliam Bajwa TODAY'S DATE: 09/29/2024, 5:33 AM Cc: I feel short of breath SUBJECTIVE: Patient was seen and evaluated at bedside. Afebrile, vital signs within normal limits on 3L NC. Reports intermittent shortness of breath. Denies abdominal pain. Endorsing intermittent nausea that resolves without medication. Voiding independently, no dysuria. Has been ambulating with PT/OT. DAILY with~40cc serous output over 24 hrs. Colostomy with 60cc stool. OBJECTIVE: VITALS: BP 114/82 Pulse 92 Temp 97.9 F (36.6 C) (Oral) Resp 18 Ht 1.549 m (5' 0.98 ) Wt 57.6 kg (126 lb 15.8 oz) SpO2 94% BMI 24.01 kg/m INTAKE/OUTPUT: Intake/Output Summary (Last 24 hours) at 09/29/2024 0533 Last data filed at 09/29/2024 0429 Gross per 24 hour Intake 500 ml Output 1515 ml Net -1015 ml PHYSICAL EXAM: General Appearance: awake, alert, oriented, resting comfortably in bed HEENT: Normocephalic, atraumatic, mucus membranes moist Lungs: Normal effort with respirations, equal chest rise Abdomen: Soft, nondistended, tender to deep palpation, ostomy with brown stool in appliance Incision: Midline incision clean and dry intact with karen. Previous ostomy incision with packingin place. Extremities: No cyanosis, pitting edema, rashes noted. Skin: Skin color, texture, turgor normal. No rashes or lesions. Data: CBC: Recent Labs 09/29/24 0520 09/28/24 0351 09/27/24 0510 WBC 13.1* 14.6* 9.3 HGB 10.3* 10.8* 10.5* HCT 30.0* 31.4* 30.1* MCV 86.7 86.5 86.0 PLT 487* 454* 410 Chemistry: Lab Results Component Value Date/Time NA 134 09/28/2024 03:51 AM K 4.0 09/28/2024 03:51 AM CL 99 09/28/2024 03:51 AM CO2 22 09/28/2024 03:51 AM BUN 3 09/28/2024 03:51 AM CREATININE 0.4 09/28/2024 03:51 AM GLUCOSE 86 09/28/2024 03:51 AM CALCIUM 8.8 09/28/2024 03:51 AM LABGLOM >90 09/28/2024 03:51 AM Radiology Review: XR CHEST PORTABLE Result Date: 09/27/2024 EXAMINATION: ONE XRAY VIEW OF THE CHEST 09/27/2024 1:06 pm COMPARISON: 09/08/2024 HISTORY: ORDERING SYSTEM PROVIDED HISTORY: dyspnea, wheezing TECHNOLOGIST PROVIDED HISTORY: dyspnea, wheezing Reason for Exam: dyspnea, wheezing FINDINGS: The lungs are without acute focal process. There is no effusion or pneumothorax. The cardiomediastinal silhouette is stable. The osseous structures are stable. No acute process. ASSESSMENT: Active Hospital Problems Diagnosis Date Noted Diverticulitis of colon [K57.32] 09/22/[address] (HCC) [Z93.3] 06/09/2024 COPD without exacerbation (HCC) [J44.9] 06/07/2024 Longstanding persistent atrial fibrillation (HCC) [I48.11] 06/07/2024 Secondary hypercoagulable state (HCC) [D68.69] 06/07/2024 Primary hypertension [I10] 06/07/2024 Hypothyroidism [E03.9] 06/07/2024 Hyponatremia [E87.1] 06/07/2024 Chronic hypoxic respiratory failure, on home oxygen therapy [J96.11, Z99.81] 06/07/2024 69 y.o. female postop day 6 status post open sigmoid resection, takedown of loop colostomy and creation of new descending colostomy Plan: Continue low fiber regular diet with nutritional supplementation Pain control: Tylenol, Roxicodone, Robaxin, Ibuprofen New Leukocytosis, UA with small amount of leukocyte esterase, CXR reviewed -no acute process WBC 13.1 from 14.6 yesterday Macrobid x3 days (09/28-09/30) Monitor for bowel function via ostomy F/u AM labs Replace electrolytes prn Monitor DAILY drain output Appreciate medicine assistance with medical mgmt OOB, encourage ambulation/activity w/ PT/OT Incentive spirometer at least 10 times per hour while awake Wound care: daily AM packing changes to old colostomy site with 1/2 in iodoform in between karen,cover with fluff/abd; daily or prn dressing change to midline incision with fluff/abd. Cover with paper tape Restart home meds Continue eliquis Home health care ordered 09/27 Dispo:Discharge to home with home health, as leukocytosis improved and she is afebrile. Associated attestation - Za Mason DO - 09/29/2024 9:05 AM EST Patient seen and examined at bedside. Afebrile, vitals normal. Having ostomy output. Pain controlled. UA positive for leuk esterase and started on macrobid. WBC trending down - no further abx. CXR reviewed. No signs of infection from abdominal standpoint. OK for dc home today with home care - prior colostomy site packing changes, ostomy care, DAILY drain care. Advised to keep a record of DAILY drain output. Follow up scheduled for 10/09. * Janusz Delvalle MD - 09/28/2024 7:37 AM EST General Surgery: Daily Progress Note PATIENT NAME: Lilliam Bajwa TODAY'S DATE: 09/28/2024, 7:37 AM Cc: I am tired SUBJECTIVE: Patient was seen and evaluated at bedside. Ostomy continues to produce stool. Tolerated a little ofa regular texture diet yesterday. DAILY drain with 80 cc of serous fluid drainage. dyspnea improved OBJECTIVE: VITALS: BP (!) 128/97 Pulse 91 Temp 98.1 F (36.7 C) (Oral) Resp 16 Ht 1.549 m (5' 0.98 ) Wt 57.6 kg (126 lb 15.8 oz) SpO2 96% BMI 24.01 kg/m INTAKE/OUTPUT: Intake/Output Summary (Last 24 hours) at 09/28/2024 0737 Last data filed at 09/27/20242029 Gross per 24 hour Intake -- Output 955 ml Net -955 ml PHYSICAL EXAM: General Appearance: awake, alert, oriented, resting comfortably in bed HEENT: Normocephalic, atraumatic, mucus membranes moist Heart: Regular rate and rhythm Lungs: Normal effort with respirations, equal chest rise Abdomen: Soft,, mild distention, generalized tenderness to palpation more severe at the incisional sites, functioning with brown stool in bag, Incision: Midline incision clean and dry intact with karen. Previous ostomy incision with packingin place. Extremities: No cyanosis, pitting edema, rashes noted. Skin: Skin color, texture, turgor normal. No rashes or lesions. Data: CBC: Recent Labs 09/26/24 0607 09/27/24 0510 09/28/24 0351 WBC 6.2 9.3 14.6* HGB 8.7* 10.5* 10.8* PLT 287 410 454* Chemistry: Recent Labs 09/26/24 0607 09/26/24 1459 09/27/24 0510 09/28/24 0351 NA 136 -- 135* 134* K 3.7 -- 3.6* 4.0 CL 105 -- 99 99 CO2 23 -- 26 22 GLUCOSE 90 -- 96 86 BUN <1* -- <1* 3* CREATININE 0.3* -- 0.4* 0.4* MG 2.0 -- 2.0 2.0 ANIONGAP 8* -- 10 14 LABGLOM >90 -- >90 >90 CALCIUM 8.4* -- 9.1 8.8 PHOS 2.1* 3.1 3.0 3.3 Hepatic: No results for input(s): AST , ALT , ALKPHOS , BILITOT , BILIDIR in the last 72 hours. Invalid input(s): ALB Coagulation: No results for input(s): APTT , INR in the last 72 hours. Invalid input(s): PROT Radiology Review: XR CHEST PORTABLE Result Date: 09/27/2024 EXAMINATION: ONE XRAY VIEW OF THE CHEST 09/27/2024 1:06 pm COMPARISON: 09/08/2024 HISTORY: ORDERING SYSTEM PROVIDED HISTORY: dyspnea, wheezing TECHNOLOGIST PROVIDED HISTORY: dyspnea, wheezing Reason for Exam: dyspnea, wheezing FINDINGS: The lungs are without acute focal process. There is no effusion or pneumothorax. The cardiomediastinal silhouette is stable. The osseous structures are stable. No acute process. ASSESSMENT: Active Hospital Problems Diagnosis Date Noted Diverticulitis of colon [K57.32] 09/22/[address] (HCC) [Z93.3] 06/09/2024 COPD without exacerbation (HCC) [J44.9] 06/07/2024 Longstanding persistent atrial fibrillation (HCC) [I48.11] 06/07/2024 Secondary hypercoagulable state (HCC) [D68.69] 06/07/2024 Primary hypertension [I10] 06/07/2024 Hypothyroidism [E03.9] 06/07/2024 Hyponatremia [E87.1] 06/07/2024 Chronic hypoxic respiratory failure, on home oxygen therapy [J96.11, Z99.81] 06/07/2024 69 y.o. female postop day 5 status post open sigmoid resection, takedown of loop colostomy and creation of new descending colostomy Plan: Continue low fiber regular diet with nutritional supplementation Pain control: Tylenol, Roxicodone, Robaxin, Toradol New Leukocytosis, UA pending, CXR reviewed -no acute process Monitor for bowel function via ostomy F/u AM labs Replace electrolytes prn Monitor DAILY drain output Appreciate medicine assistance with medical mgmt OOB, encourage ambulation/activity w/ PT/OT Incentive spirometer at least 10 times per hour while awake Wound care: daily AM packing changes to old colostomy site with 1/2 in iodoform in between karen,cover with fluff/abd; daily or prn dressing change to midline incision with fluff/abd. Cover with paper tape Restart home meds Continue eliquis Home health care ordered 09/27 Dispo: Continue MedSurg stay, advance diet, continue to monitor respiratory status Attending Physician Statement I have discussed the case, including pertinent history and exam findings with the resident. I agreewith the assessment, plan and orders as documented by the resident. Hopefully home in 24 h * Alessandro Peralta, RETAIL SELLING SPECIALIST - COMMITTEE MEMBER - 09/28/2024 6:58 AM EST Images from the original note were not included. [facility] Office: [phone] Balbir Henderson DO, Warren Sierra DO, Kemar Powers DO, Sean Martinez DO, Kaveh Hurtado MD, Patsy Parekh MD, Edwardo Mckeon MD, Rosalind Randolph MD, Samy Vicente MD, Steve Begum MD, Luis M Kapoor MD, Stella Aleman DO, Ranjit Christian MD, Kayden Lozada MD, Vasiliy Henderson DO, Marianne Gutierrez MD, Og Spencer DO, Myra Maldonado MD, Lydia Lemus MD, Kathy Pacheco MD, Gus Stanley MD, Anjel Meeks MD, Vega Comer MD, Bindu Garcia MD, Tangela Forman MD, Enoch Joyce MD, Alfa Bullard MD, Stef Butcher DO, Fidel Mejia DO, Cindi Ellis MD, Sesar Dumont MD, Zoila Archibald CNP, Zandra Kay CNP, Jeremias Whiteside, COMMITTEE MEMBER, Marium Muniz, SWAPNA,Lashon Li, COMMITTEE MEMBER, Za Soares, COMMITTEE MEMBER, David Navas COMMITTEE MEMBER, Marilynn Crocker COMMITTEE MEMBER, Elvie Marcus, COMMITTEE MEMBER, Janet León, PAJimmyC, Denise Maddox, PAJimmyC, Kacy Reynolds, COMMITTEE MEMBER, Lindy Steiner, COMMITTEE MEMBER, Meme Caldera, COMMITTEE MEMBER, Phoebe Owens, LIBRARIAN HELPER, Komal Jeronimo, COMMITTEE MEMBER, Amanda French, COMMITTEE MEMBER, Atiya Cardona CNP [facility] IN-PATIENT SERVICE [facility] Progress Note 09/28/2024 6:58 AM Name: Lilliam Bajwa Acct: [id number] Room: 1025/1025-01 Day: 6 Admit Date: 09/22/2024 10:56 AM PCP: Jeremias Lopez MD Code Status: Full Code Subjective: C/C: No chief complaint on file. Interval History Status: worsened. Patient seen and evaluated at bedside with her present where they was updated on her increased white blood cell count overnight. She denied any fevers or chills that she states she always hasepisodes of chills and hot flashes. Her did share that she has been increasingly fatigued most noticeably on previous day of examination. She denies any new or change in her chronic shortnessof breath due to COPD. Additionally she denies any dysuria, suprapubic discomfort or frequency. I did update them that the plan of care would include additional blood work as well as a urinalysis. All questions answered. Brief History: Patient presents for scheduled open sigmoid resection. She has a past medical history significant for persistent atrial fibrillation, hypertension, pulmonary fibrosis, CLARISSE, COPD, SBO status post colostomy. We are consulted for medical management. Review of Systems: Review of Systems Constitutional: Positive for fatigue. Negative for appetite change, chills and fever. Eyes: Negative for visual disturbance. Respiratory: Negative for shortness of breath and wheezing. Cardiovascular: Negative for chest pain and leg swelling. Gastrointestinal: Negative for constipation, nausea and vomiting. Endocrine: Negative for polydipsia, polyphagia and polyuria. Genitourinary: Negative for decreased urine volume, difficulty urinating and flank pain. Musculoskeletal: Negative for arthralgias. Skin: Positive for wound (post op finding). Negative for rash. Neurological: Negative for tremors and weakness. Psychiatric/Behavioral: Negative for confusion, hallucinations and suicidal ideas. Medications: Allergies: Allergies Allergen Reactions Bupropion Itching Current Meds: Scheduled Meds: methocarbamol 750 mg Oral Q6H ketorolac 15 mg IntraVENous Q6H famotidine 20 mg Oral BID guaiFENesin 600 mg Oral BID albuterol sulfate HFA 2 puff Inhalation 4x Daily RT potassium chloride 20 mEq Oral BID apixaban 5 mg Oral BID escitalopram 20 mg Oral Daily levothyroxine 88 mcg Oral Daily sodium chloride flush 10 mL IntraVENous 2 times per day acetaminophen 1,000 mg Oral 3 times per day budesonide-formoterol 2 puff Inhalation BID RT tiotropium 2 puff Inhalation Daily RT metoprolol succinate 25 mg Oral Daily Continuous Infusions: sodium chloride PRN Meds: oxyCODONE OR [DISCONTINUED] oxyCODONE, sodium phosphate 9.06 mmol in sodium chloride 0.9 % 250 mL IVPB OR sodium phosphate 18.15 mmol in sodium chloride 0.9 % 250 mL IVPB, metoprolol, simethicone, albuterol sulfate HFA, sodium chloride flush, sodium chloride, magnesium sulfate, ondansetron OR ondansetron, clonazePAM, metoprolol Data: Past Medical History: has a past medical history of Bowel obstruction (HCC), Chronic hypoxic respiratory failure, on home oxygen therapy, Colostomy in place (HCC), Colovaginal fistula, COPD without exacerbation (HCC), Hypothyroidism, Longstanding persistent atrial fibrillation (HCC), On home oxygentherapy, Primary hypertension, Pulmonary fibrosis (HCC), and Sleep apnea. Social History: reports that she has quit smoking. Her smoking use included cigarettes. She has never used smokeless tobacco. She reports current alcohol use. She reports that she does not use drugs. Family History: Family History Problem Relation Age of Onset Lung Cancer Mother COPD Father Vitals: BP (!) 128/97 Pulse 91 Temp 98.1 F (36.7 C) (Oral) Resp 16 Ht 1.549 m (5' 0.98 ) Wt 57.6 kg (126 lb 15.8 oz) SpO2 96% BMI 24.01 kg/m Temp (24hrs), Av.2 F (36.8 C), Min:97.7 F (36.5 C), Max:99 F (37.2 C) No results for input(s): POCGLU in the last 72 hours. I/O (24Hr): Intake/Output Summary (Last 24 hours) at 09/28/2024 0658 Last data filed at 09/27/20242029 Gross per 24 hour Intake -- Output 955 ml Net -955 ml Labs: Hematology: Recent Labs 09/26/24 0607 09/27/24 0510 09/28/24 0351 WBC 6.2 9.3 14.6* RBC 2.94* 3.50* 3.63* HGB 8.7* 10.5* 10.8* HCT 25.7* 30.1* 31.4* MCV 87.4 86.0 86.5 MCH 29.6 30.0 29.8 MCHC 33.9 34.9* 34.4 RDW 14.3 14.2 14.6* PLT 287 410 454* MPV 9.6 9.2 9.2 Chemistry: Recent Labs 09/26/24 0607 09/26/24 1459 09/27/24 0510 09/28/24 0351 NA 136 -- 135* 134* K 3.7 -- 3.6* 4.0 CL 105 -- 99 99 CO2 23 -- 26 22 GLUCOSE 90 -- 96 86 BUN <1* -- <1* 3* CREATININE 0.3* -- 0.4* 0.4* MG 2.0 -- 2.0 2.0 ANIONGAP 8* -- 10 14 LABGLOM >90 -- >90 >90 CALCIUM 8.4* -- 9.1 8.8 PHOS 2.1* 3.1 3.0 3.3 No results for input(s): LABALBU , LABA1C , C7JDJKK , FT4 , TSH , AST , ALT , LDH , GGT , ALKPHOS , BILITOT , BILIDIR , AMMONIA , AMYLASE , LIPASE , LACTATE , CHOL , HDL , CHOLHDLRATIO , TRIG , VLDL , GFV27OK , PHENYTOIN , PHENYF , URICACID , POCGLU in the last 72 hours. Invalid input(s): PROT , A0VCTHY , LABGGT , LDLCHOLESTEROL ABG:No results found for: POCPH , PHART , PH , POCPCO2 , VEC2GVX , PCO2 , POCPO2 , PO2ART , PO2 , POCHCO3 , EYW1XDT , HCO3 , NBEA , PBEA , BEART , BE , THGBART , THB , ILE7VSG , KBWA2TLJ , O3PHSZVJ , O2SAT , FIO2 No results found for: SPECIAL No results found for: CULTURE Radiology: XR CHEST PORTABLE Result Date: 09/27/2024 No acute process. Physical Examination: Physical Exam Cardiovascular: Rate and Rhythm: Normal rate and regular rhythm. Heart sounds: Normal heart sounds. Pulmonary: Effort: Pulmonary effort is normal. Breath sounds: Normal air entry. Decreased breath sounds present. Abdominal: Palpations: Abdomen is soft. Tenderness: There is abdominal tenderness. There is guarding. Comments: Midline incision and ostomy present Musculoskeletal: Right lower leg: No edema. Left lower leg: No edema. Skin: General: Skin is warm and dry. Capillary Refill: Capillary refill takes 2 to 3 seconds. Neurological: Mental Status: She is alert and oriented to person, place, and time. Psychiatric: Attention and Perception: Attention normal. Mood and Affect: Mood normal. Behavior: Behavior normal. Behavior is cooperative. Assessment: Hospital Problems Last Modified POA * (Principal) Diverticulitis of colon 09/22/2024 Yes COPD without exacerbation (HCC) 09/22/2024 Yes Chronic hypoxic respiratory failure, on home oxygen therapy 09/22/2024 Yes Primary hypertension 09/22/2024 Yes Longstanding persistent atrial fibrillation (HCC) 09/22/2024 Yes Hypothyroidism 09/22/2024 Yes Secondary hypercoagulable state (HCC) 09/22/2024 Yes Hyponatremia 09/22/[address] (HCC) 09/24/2024 Yes Plan: Leukocytosis secondary to unknown source White count increased from 9.3 to 14.6 overnight Patient afebrile, not tachycardic but does endorse increased fatigue Chest x-ray on previous day of examination without acute process Surgical site reviewed without acute findings Check urinalysis with reflex culture, lactic and procalcitonin PATSY Johnson CNP 09/28/2024 6:58 AM * Cori Blackmon OTA - 09/27/2024 11:21 AM EST Occupational Therapy Facility/Department: [facility] PROGRESSIVE CARE Daily Treatment Note NAME: Lilliam Bajwa : 1955 Date of Service: 09/27/2024 Discharge Recommendations: Patient would benefit from continued therapy after discharge Pt currently functioning below baseline. Recommend daily inpatient skilled therapy at time of discharge to maximize retirement outcomes and prevent re- admission. Please refer to AM-PAC score for current level of function. Patient Diagnosis(es): The encounter diagnosis was Diverticulitis. Assessment Assessment: Pt tolerated tx well and is progressing towards goals, although continues to requires Sol with transfers and ADLs. Pt would benefit from continued skilled OT services to address deficitsin areas of functional balance, functional reach, ADL completion, safety awareness, ADL transfers, bed mobility, UE strength, and functional mobility, all limiting safe return home to [facility] and decrease caregiver burden. Activity Tolerance: Patient tolerated treatment well Discharge Recommendations: Patient would benefit from continued therapy after discharge Plan Occupational Therapy Plan Times Per Week: 5-6x/week 1-2x/day as tolerated Current Treatment Recommendations: Strengthening;Balance training;Functional mobility training;Endurance training;Pain management;Equipment evaluation, education, & procurement;Modalities;Positioning;Safety education & training;Self-Care / ADL Restrictions:ABD sx Subjective Subjective Subjective: Pt agreeable to therapy. Pain: No pain noted to impact function. Orientation Overall Orientation Status: Within Functional Limits Cognition Overall Cognitive Status: Exceptions Arousal/Alertness: Inconsistent responses to stimuli;Delayed responses to stimuli Following Commands: Inconsistently follows commands Attention Span: Difficulty attending to directions;Difficulty dividing attention Safety Judgement: Decreased awareness of need for assistance;Decreased awareness of need for safety Problem Solving: Assistance required to identify errors made;Assistance required to correct errors made;Decreased awareness of errors Insights: Decreased awareness of deficits Initiation: Requires cues for some Sequencing: Requires cues for some Cognition Comment: Pt with notable change in cognition this date vs tx on 09/24/2024. Pt much more lethargic this date, difficulty following directions and following conversation. Pt noted to use incorrect word a couple of times during treatment. RN notified. Objective Vitals O2 Device: Nasal cannula Bed Mobility Training: Minimum assistance Interventions: Safety awareness training;Verbal cues Supine to Sit: Minimum assistance Sit to Supine: Minimum assistance Transfer Training: Minimum assistance Interventions: Safety awareness training;Verbal cues;Weight shifting training/pressure relief Sit to Stand: Minimum assistance Stand to Sit: Minimum assistance ADL Toileting: Minimal assistance Functional Mobility: Minimal assistance Functional Mobility Skilled Clinical Factors: From bed to bathroom to complete toiletig then back to bed. No LOB, some SOB and HR noted to elevate into mid 130s, staying mostly in 120s. HR 117 upon arrival, pt supine in bed resting. Safety Devices Type of Devices: All fall risk precautions in place;Bed alarm in place;Patient at risk for falls;Left in bed;Nurse notified;Gait belt;Call light within reach Patient Education Education Given To: Patient Education Provided: Role of Therapy;Plan of Care;Precautions;Transfer Training;Energy Conservation;Fall Prevention Strategies;Mobility Training;Orientation Education Method: Verbal Education Outcome: Continued education needed Goals Short Term Goals Time Frame for Short Term Goals: By discharge, pt to demo: Short Term Goal 1: bed mobility tasks to MOD I/IND with Good use of logroll tech and without use ofbedrails. Short Term Goal 2: ADL transfers and functional mobility tasks to SBA/SUP with Good safety/pacing and use of RW as needed. Short Term Goal 3: UB ADLs and LB ADLs to SBA with Good adherence to surgical precautions and use of AE/compensatory strategies as needed. Short Term Goal 4: toileting routine to MinAx1 with Good safety/pacing and use of AD/grab bars/BSC as needed. Short Term Goal 5: Pt/family to be IND with abdominal/surgical precautions, fall prevention strategies, EC/WS tech, compensatory ADL tech, incentive spirometer use, and potential equipment/discharge recommendations, with use of handouts as needed. Patient Goals Patient goals : To go home! AM-PAC - ADL AM-PAC Daily Activity - Inpatient How much help is needed for putting on and taking off regular lower body clothing?: A Lot How much help is needed for bathing (which includes washing, rinsing, drying)?: A Lot How much help is needed for toileting (which includes using toilet, bedpan, or urinal)?: A Lot How much help is needed for putting on and taking off regular upper body clothing?: A Little How much help is needed for taking care of personal grooming?: None How much help for eating meals?: None AM-PAC Inpatient Daily Activity Raw Score: 17 AM-PAC Inpatient ADL T-Scale Score : 37.26 ADL Inpatient CMS 0-100% Score: 50.11 ADL Inpatient CMS G-Code Modifier : BECKY RN reports patient is medically stable for therapy treatment this date. Chart reviewed prior to treatment and patient is agreeable for therapy. All lines intact and patient positioned comfortably at end of treatment. All patient needs addressed prior to ending therapy session. Therapy Time Individual Concurrent Group Co-treatment Time In 0830 Time Out 0845 Minutes 15 AXEL Bustamante * Priya, Kemar Lewis DO - 09/27/2024 10:01 AM EST Images from the original note were not included. [facility] Office: [phone] Balbir Henderson DO, Warren Sierra DO, Kemar Powers DO, Sean Martinez DO, Kaveh Hurtado MD, Patsy Parekh MD, Edwardo Mckeon MD, Rosalind Randolph MD, Samy Vicente MD, Steve Begum MD, Luis M Kapoor MD, Stella Aleman DO, Ranjit Christian MD, Kayden Lozada MD, Vasiliy Henderson DO, Marianne Gutierrez MD, Og Spencer DO, Myra Maldonado MD, Lydia Lemus MD, Kathy Pacheco MD, Gus Stanley MD, Anjel Meeks MD, Vega Comer MD, Bindu Garcia MD, Tangela Forman MD, Enoch Joyce MD, Alfa Bullard MD, Jeremias Enciso DO, Sesar Dumont MD, Stella Kelly MD, Andrew Kelly MD, Zoila Archibald CNP, Zandra Kay CNP, Jeremias Whiteside CNP, Marium Muniz DNP, Lashon Li, GE, Za Soares, GE, Marilynn Crocker CNP, Elvie Marcus CNP, Janet León PA-C, Denise Maddox PA-C, Kacy Reynolds CNP, Alessandro Peralta CNP, Kandi Mejia, GE, Laly Rolle, COMMITTEE MEMBER, Meme Caldera, COMMITTEE MEMBER, Amanda French, COMMITTEE MEMBER, Em Chávez, COMMITTEE MEMBER [facility] IN-PATIENT SERVICE [facility] Progress Note 09/27/2024 10:01 AM Name: Lilliam Bajwa Acct: [id number] Room: [address] [place] [address] Day: 5 Admit Date: 09/22/2024 10:56 AM PCP: Jeremias Lopez MD Code Status: Full Code Subjective: C/C: Diverticulosis Interval History Status: improved. Patient continues to have improvement in her bowel function, having ostomy output. More worn out today, denies significant change shortness of breath. Denies any cough, fevers or chills, nausea or vomiting. Brief History: Per previous documentation Patient presents for scheduled open sigmoid resection. She has a past medical history significant for persistent atrial fibrillation, hypertension, pulmonary fibrosis, CLARISSE, COPD, SBO status post colostomy. We are consulted for medical management. Review of Systems: Constitutional: negative for chills, fevers, sweats Respiratory: negative for cough, dyspnea on exertion, shortness of breath, wheezing Cardiovascular: negative for chest pain, chest pressure/discomfort, lower extremity edema, palpitations Gastrointestinal: negative for abdominal pain, constipation, diarrhea, nausea, vomiting Neurological: negative for dizziness, headache Medications: Allergies: Allergies Allergen Reactions Bupropion Itching Current Meds: Scheduled Meds: metoclopramide 5 mg IntraVENous Q6H methocarbamol 750 mg Oral Q6H ketorolac 15 mg IntraVENous Q6H famotidine 20 mg Oral BID guaiFENesin 600 mg Oral BID albuterol sulfate HFA 2 puff Inhalation 4x Daily RT potassium chloride 20 mEq Oral BID apixaban 5 mg Oral BID escitalopram 20 mg Oral Daily levothyroxine 88 mcg Oral Daily sodium chloride flush 10 mL IntraVENous 2 times per day acetaminophen 1,000 mg Oral 3 times per day budesonide-formoterol 2 puff Inhalation BID RT tiotropium 2 puff Inhalation Daily RT metoprolol succinate 25 mg Oral Daily Continuous Infusions: sodium chloride PRN Meds: oxyCODONE OR [DISCONTINUED] oxyCODONE, sodium phosphate 9.06 mmol in sodium chloride 0.9 % 250 mL IVPB OR sodium phosphate 18.15 mmol in sodium chloride 0.9 % 250 mL IVPB, metoprolol, simethicone, albuterol sulfate HFA, sodium chloride flush, sodium chloride, magnesium sulfate, ondansetron OR ondansetron, clonazePAM, metoprolol Data: Past Medical History: has a past medical history of Bowel obstruction (HCC), Chronic hypoxic respiratory failure, on home oxygen therapy, Colostomy in place (HCC), Colovaginal fistula, COPD without exacerbation (HCC), Hypothyroidism, Longstanding persistent atrial fibrillation (HCC), On home oxygentherapy, Primary hypertension, Pulmonary fibrosis (HCC), and Sleep apnea. Social History: reports that she has quit smoking. Her smoking use included cigarettes. She has never used smokeless tobacco. She reports current alcohol use. She reports that she does not use drugs. Family History: Family History Problem Relation Age of Onset Lung Cancer Mother COPD Father Vitals: BP (!) 152/106 Pulse (!) 109 Temp 98.2 F (36.8 C) (Oral) Resp 18 Ht 1.549 m (5' 0.98 ) Wt57.5 kg (126 lb 12.8 oz) SpO2 93% BMI 23.97 kg/m Temp (24hrs), Av F (36.7 C), Min:97.7 F (36.5 C), Max:98.2 F (36.8 C) No results for input(s): POCGLU in the last 72 hours. I/O (24Hr): Intake/Output Summary (Last 24 hours) at 09/27/2024 1001 Last data filed at 09/27/2024 0619 Gross per 24 hour Intake 700 ml Output 3005 ml Net -2305 ml Labs: Hematology: Recent Labs 09/25/24 0500 09/26/24 0607 09/27/24 0510 WBC 10.2 6.2 9.3 RBC 2.94* 2.94* 3.50* HGB 8.7* 8.7* 10.5* HCT 25.6* 25.7* 30.1* MCV 87.1 87.4 86.0 MCH 29.6 29.6 30.0 MCHC 34.0 33.9 34.9* RDW 14.4 14.3 14.2 PLT 245 287 410 MPV 9.8 9.6 9.2 Chemistry: Recent Labs 09/25/24 0500 09/26/24 0607 09/26/24 1459 09/27/24 0510 NA 134* 136 -- 135* K 3.9 3.7 -- 3.6* CL 103 105 -- 99 CO2 23 23 -- 26 GLUCOSE 82 90 -- 96 BUN 2* <1* -- <1* CREATININE 0.3* 0.3* -- 0.4* MG -- 2.0 -- 2.0 ANIONGAP 9 8* -- 10 LABGLOM >90 >90 -- >90 CALCIUM 8.3* 8.4* -- 9.1 CAION 1.14 -- -- -- PHOS 1.2* 2.1* 3.1 3.0 No results for input(s): LABALBU , LABA1C , D8UHZNJ , FT4 , TSH , AST , ALT , LDH , GGT , ALKPHOS , BILITOT , BILIDIR , AMMONIA , AMYLASE , LIPASE , LACTATE , CHOL , HDL , CHOLHDLRATIO , TRIG , VLDL , QYX30QH , PHENYTOIN , PHENYF , URICACID , POCGLU in the last 72 hours. Invalid input(s): PROT , H0KEOZA , LABGGT , LDLCHOLESTEROL ABG:No results found for: POCPH , PHART , PH , POCPCO2 , GNK8BUG , PCO2 , POCPO2 , PO2ART , PO2 , POCHCO3 , RNK7EYP , HCO3 , NBEA , PBEA , BEART , BE , THGBART , THB , ATY6EZJ , BMAL8APV , R3HBDJCM , O2SAT , FIO2 No results found for: SPECIAL No results found for: CULTURE Radiology: No results found. Physical Examination: General appearance: alert, cooperative and no distress Mental Status: oriented to person, place and time and normal affect Lungs: clear to auscultation bilaterally, normal effort Heart: regular rate and rhythm, no murmur Abdomen: soft, nontender, nondistended, normal bowel sounds, no masses, hepatomegaly, splenomegaly Extremities: no edema, redness, tenderness in the calves Skin: no gross lesions, rashes, induration Assessment: Hospital Problems Last Modified POA * (Principal) Diverticulitis of colon 09/22/2024 Yes COPD without exacerbation (HCC) 09/22/2024 Yes Chronic hypoxic respiratory failure, on home oxygen therapy 09/22/2024 Yes Primary hypertension 09/22/2024 Yes Longstanding persistent atrial fibrillation (HCC) 09/22/2024 Yes Hypothyroidism 09/22/2024 Yes Secondary hypercoagulable state (HCC) 09/22/2024 Yes Hyponatremia 09/22/[address] (HCC) 09/24/2024 Yes Plan: Dietary advancement per surgery, full liquid diet with clear liquid supplements Patient has slight increase in baseline oxygen requirements, will check chest x- ray today. Chest x-ray reviewed no acute pathology. Encouraged to use incentive spirometry Activity as tolerated, PT and OT Cardiac telemetry Trend labs, correct electrolytes as needed. Maintain magnesium greater than 2 and potassium greaterthan 4 Discussed with family at bedside Kemar Powers DO 09/27/2024 10:01 AM * Janusz Delvalle MD - 09/27/2024 6:23 AM EST General Surgery: Daily Progress Note PATIENT NAME: Lilliam Bajwa TODAY'S DATE: 09/27/2024, 6:23 AM Cc: I feel a bit better today however still having shortness of breath with ambulation SUBJECTIVE: Patient was seen and examined at bedside. Afebrile, vital signs in normal limits. Patient started having ostomy output yesterday afternoon. Output 175 cc brown stool. DAILY drain with 230 cc of serous output over 24 hours. Adequate urine output. Does complain of dyspnea with exertion however it is mildly improved OBJECTIVE: VITALS: BP (!) 147/96 Pulse 91 Temp 97.9 F (36.6 C) (Oral) Resp 18 Ht 1.549 m (5' 0.98 ) Wt 57.5 kg (126 lb 12.8 oz) SpO2 97% BMI 23.97 kg/m INTAKE/OUTPUT: Intake/Output Summary (Last 24 hours) at 09/27/2024 06 Last data filed at 09/27/2024 0619 Gross per 24 hour Intake 700 ml Output 3505 ml Net -2805 ml PHYSICAL EXAM: General Appearance: awake, alert, oriented, resting comfortably in bed HEENT: Normocephalic, atraumatic, mucus membranes moist Heart: Regular rate and rhythm Lungs: Normal effort with respirations, equal chest rise Abdomen: Soft, tenderness to palpation near midline incision, left-sided ostomy functioning with brown stool in bag, nondistended Incision: Midline incision clean and dry intact with karen. Previous ostomy incision with mild erythema surrounding skin edges, packing replaced Extremities: No cyanosis, pitting edema, rashes noted. Skin: Skin color, texture, turgor normal. No rashes or lesions. Data: CBC: Recent Labs 09/25/24 0500 09/26/24 0607 09/27/24 0510 WBC 10.2 6.2 9.3 HGB 8.7* 8.7* 10.5* PLT 245 287 410 Chemistry: Recent Labs 09/24/24 0917 09/24/24 1758 09/25/24 0500 09/26/24 0607 09/26/24 1459 09/27/24 0510 NA 135* -- 134* 136 -- 135* K 3.3* -- 3.9 3.7 -- 3.6* CL 102 -- 103 105 -- 99 CO2 25 -- 23 23 -- 26 GLUCOSE 89 -- 82 90 -- 96 BUN 3* -- 2* <1* -- <1* CREATININE 0.4* -- 0.3* 0.3* -- 0.4* MG 2.0 -- -- 2.0 -- 2.0 ANIONGAP 9 -- 9 8* -- 10 LABGLOM >90 -- >90 >90 -- >90 CALCIUM 8.3* -- 8.3* 8.4* -- 9.1 CAION -- -- 1.14 -- -- -- PHOS 0.8* < > 1.2* 2.1* 3.1 3.0 < > = values in this interval not displayed. Hepatic: No results for input(s): AST , ALT , ALKPHOS , BILITOT , BILIDIR in the last 72 hours. Invalid input(s): ALB Coagulation: No results for input(s): APTT , INR in the last 72 hours. Invalid input(s): PROT Radiology Review: No results found. ASSESSMENT: Active Hospital Problems Diagnosis Date Noted Diverticulitis of colon [K57.32] 09/22/[address] (HCC) [Z93.3] 06/09/2024 COPD without exacerbation (HCC) [J44.9] 06/07/2024 Longstanding persistent atrial fibrillation (HCC) [I48.11] 06/07/2024 Secondary hypercoagulable state (HCC) [D68.69] 06/07/2024 Primary hypertension [I10] 06/07/2024 Hypothyroidism [E03.9] 06/07/2024 Hyponatremia [E87.1] 06/07/2024 Chronic hypoxic respiratory failure, on home oxygen therapy [J96.11, Z99.81] 06/07/2024 69 y.o. female postop day 5 status post open sigmoid resection, takedown of loop colostomy and creation of new descending colostomy Plan: Advance to low fiber regular diet with nutritional supplementation Pain control: Tylenol, [place], Robaxin, Toradol Continue reglan for 1 more day Monitor for bowel function via ostomy F/u AM labs Replace electrolytes prn Monitor DAILY drain output Appreciate medicine assistance with medical mgmt OOB, encourage ambulation/activity w/ PT/OT Incentive spirometer at least 10 times per hour while awake Wound care: daily AM packing changes to old colostomy site with 1/2 in iodoform in between karen,cover with fluff/abd; daily or prn dressing change to midline incision with fluff/abd. Cover with paper tape Restart home meds Resume eliquis today Lovenox daily dvt ppx Home health care ordered 09/27 Dispo: Continue MedSurg stay, advance diet, continue to monitor respiratory status Attending Physician Statement I have discussed the case, including pertinent history and exam findings with the resident. I agreewith the assessment, plan and orders as documented by the resident. Has stoma function Advance diet Significant SOB. Defer management to Medicine Deyanira Turner RN - 09/27/2024 6:04 AM EST Pt had a somewhat eventful shift tonight. Pt started shift ambulating to restroom with walker and staff assist, but as shift progressed, pt became increasingly tachy into the 160's. Advice Line Rn initiated purewick, which was draining well. Advice Line Rn reached out to ARCHIVIST in regards to HR and BP and 5mg IV Lopressor ordered and administered at 2226. HR improved slightly, but then appeared irregular and increased again into the 150's. Advice Line Rn performed 12-lead EKG ordered by ARCHIVIST, which showed afib with RVR. 1x dose of Cardizem ordered, 10 mg IV. Given at 0020. HR improved and converted to NS, around 80's-90's. Pt received scheduled pain meds. Colostomy draining and emptied, brown, soft output. DAILY drain to bulb suction and emptied accordingly. Pt remained on 2L NC, base O2. Pt received PRN Klonopin tonight. remained at bedside. Will continue with care plan. Pain Care Plan Patient having pain on their abdomen and rates it a 8. Pain interventions includepillow support/positioning. Patients goal for pain relief is 0 . The need for pain and symptom management will be considered in the discharge planning process to ensure patients comfort. * Tami Knight, PT - 09/26/2024 4:01 PM EST Physical Therapy Facility/Department: [facility] Physical Therapy Daily Treatment Note Patient Name: Lilliam Bajwa : 1955 Date of Service: 09/26/2024 No chief complaint on file. Past Medical History: has a past medical history of Bowel obstruction (HCC), Chronic hypoxic respiratory failure, on home oxygen therapy, Colostomy in place (HCC), Colovaginal fistula, COPD without exacerbation (HCC), Hypothyroidism, Longstanding persistent atrial fibrillation (HCC), On home oxygentherapy, Primary hypertension, Pulmonary fibrosis (HCC), and Sleep apnea. Past Surgical History: has a past surgical history that includes section, low transverse; Hysterectomy; bronchoscopy; Breast biopsy; Cardiac catheterization; laparotomy (N/A, 06/08/2024); Colonoscopy (N/A, 07/18/2024); other surgical history (Right); Foot surgery (Right); and Sigmoid Colectomy (N/A, 09/22/2024). Discharge Recommendations Discharge Recommendations: 24 hour supervision or assist, Home with Home health PT, Therapy recommended at discharge, Patient would benefit from continued therapy after discharge Assessment Body Structures, Functions, Activity Limitations Requiring Skilled Therapeutic Intervention: Decreased functional mobility ;Decreased ADL status;Decreased strength;Decreased safe awareness;Decreased endurance;Decreased balance;Decreased posture Assessment: Pt with deficits of bed mobility, transfers, ambulation, balance, posture, safety awareness and endurance this session, & requires continued PT to maximize independence with functional mobility, balance, safety awareness & activity tolerance to [facility] for functional mobility & ADL's. 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 Therapy Prognosis: Good Decision Making: Medium Complexity Requires PT Follow-Up: Yes Activity Tolerance Activity Tolerance: Patient limited by fatigue;Patient limited by endurance Activity Tolerance Comments: resting SPO2 93% & Pulse 94, during functional mobility SPO2 ranged 89-94% & pulse 97-105 Safety Devices Type of Devices: All fall risk precautions in place;Patient at risk for falls;Nurse notified;Gait belt;Call light within reach;Bed alarm in place;Left in bed AM-[facility] Basic Mobility - Inpatient How much help is needed turning from your back to your side while in a flat bed without using bedrails?: A Little How much help is needed moving from lying on your back to sitting on the side of a flat bed withoutusing bedrails?: A Little How much help is needed moving to and from a bed to a chair?: A Little How much help is needed standing up from a chair using your arms?: A Little How much help is needed walking in hospital room?: A Little How much help is needed climbing 3-5 steps with a railing?: A Lot [facility] Inpatient Mobility Raw Score : 17 [facility] Inpatient T-Scale Score : 42.13 Mobility Inpatient CMS 0-100% Score: 50.57 Mobility Inpatient [facility] G-Code Modifier : CK Restrictions/Precautions Restrictions/Precautions Restrictions/Precautions: General Precautions;Fall Risk;Surgical Protocols Activity Level: Up with Assist;Up as Tolerated Required Braces or Orthoses?: No Position Activity Restriction Other Position/Activity Restrictions: Up with assist/as tolerated, and up to chair, ELEVATE HOB andLEGS, telemetry, DAILY drain RLQ, NEW colostomy LLQ, R hand IV, 3L NCO2, FULL liquid diet, ALARMS Subjective General Chart Reviewed: Yes Patient assessed for rehabilitation services?: Yes Additional Pertinent Hx: COPD, on home O2, HTN, CLARISSE Response To Previous Treatment: Patient with no complaints from previous session. Family/Caregiver Present: Yes Follows Commands: Within Functional Limits General General Comments: RN spenser PT Subjective Subjective: Pt agreeable to PT Objective COGNITION Orientation Overall Orientation Status: Within Functional Limits Cognition Arousal/Alertness: Appears intact Following Commands: Follows one step commands with repetition Attention Span: Appears intact Memory: Decreased recall of precautions;Decreased recall of recent events Safety Judgement: Decreased awareness of need for assistance;Decreased awareness of need for safety Problem Solving: Assistance required to identify errors made;Assistance required to correct errors made;Decreased awareness of errors Insights: Decreased awareness of deficits Initiation: Requires cues for some Sequencing: Requires cues for some Mobility Bed mobility Rolling to Left: Contact guard assistance Rolling to Right: Contact guard assistance Sit to Supine: Contact guard assistance Scooting: Minimal assistance Bed Mobility Comments: MOD VC scoot/position to head of bed before return to laying, use of Benjamin UB onto rail for support, & to flex knees to assist reposition & scoot/bridge to center and to head of bed with use of CORE, pursed lip breathing, assist with line mgt, AND with with increased time/effort needed to complete Transfers Sit to Stand: Minimal Assistance Stand to Sit: Minimal Assistance Bed to Chair: Minimal assistance Stand Pivot Transfers: Minimal Assistance Lateral Transfers: Minimal Assistance Comment: MOD VC on correct use of upper body for safe sit/stand, nose over toes tech, upright posture, pacing + to back all way to surface with walker CLOSE until she feels touch behind legs, & to ensure she reaches with UB support to arms of chair Ambulation Surface: Level tile Device: Rolling Walker Other Apparatus: O2 Assistance: Minimal assistance Quality of Gait: step to pattern, MIN cues to keep walker close and to amb inside base of walker & upright posture for safety/scanning, slowing down to inc safety especially with turning for safemaneuvering of R/walker, and for safe mgt of lines to reduce fall risk, and for proper pacing Gait Deviations: Decreased step length;Decreased step height;Increased JELLY Distance: 25ftx2 Comments: Pt amb to BR for toileting, MIN Assistance to sit to toilet. Pt stood with MIN Assistance, stood 2 minutes for pericare & to pull up brief with MIN Assist, amb 3ft to sink for hand hygiene x 2 minutes then ambulated 25 more ft with R/walker & sat to chair with MIN Assistance More Ambulation?: Yes Ambulation 2 Surface - 2: level tile Device 2: Rolling Walker Other Apparatus 2: O2 Assistance 2: Minimal assistance Quality of Gait 2: step to pattern, MIN cues to keep walker close and to amb inside base of walker & upright posture for safety/scanning, slowing down to inc safety especially with turning for safe maneuvering of R/walker, and for safe mgt of lines/proper pacing Distance: 15ft Balance Balance Posture: Fair Sitting - Static: Good Sitting - Dynamic: Good, - Standing - Static: Fair, + (R/W) Standing - Dynamic: Fair, + (R/W) Single Leg Stance R Le Single Leg Stance L Le Exercise PT Exercises A/AROM Exercises: LAQ, heel/toe raises, hip Abd x 15 reps Circulation/Endurance Exercises: ankle pumps x 20 Functional Mobility Circuit Training: sit to stands x 6 with Sol Static Standing Balance Exercises: Pt stood 3 minutes with R/W and CGA Dynamic Standing Balance Exercises: Pt completed static standing WS x 6 with UB support at R/walkerand CGA, and standing mini marching x 3 each leg with UB support at R/walker and MIN GUARD Postural Correction Exercises: Upright posture Breathing Techniques: pursed lip breathing to maintain SPO2 in good range, & to avoid holding breath during transitions of functional mobility, & deep breathing with incentive spirometer including technique, frequency and purpose, completed 10 reps Disease-specific Exercises: ED on importance being up & moving, & to be up in chair at least 2x/D to reduce SEDENTARY & POST OP complications Patient Education Patient Education Education Given To: Patient Education Provided: Role of Therapy;Plan of Care;Transfer Training;Energy Conservation;Equipment;Fall Prevention Strategies Education Provided Comments: Pt educated on importance of continued PT and mobility with progression as tolerated throughout admission, safety awareness, fall risk prevention, safe transfers & ambulation w/ RW, circulation ex's, pressure relief and breathing techniques, prevention of sedentary complications, and PT POC. Pt demonstrated FAIR carryover Pt requires continued reinforcement of education. Education Method: Demonstration;Verbal;Printed Information/Hand-outs Education Outcome: Verbalized understanding;Continued education needed Plan Physical Therapy Plan General Plan: 1 time a day 7 days a week Current Treatment Recommendations: Strengthening, Balance training, Functional mobility training, Transfer training, Gait training, Stair training, Home exercise program, Safety education & training, Patient/Caregiver education & training, Therapeutic activities Goals Patient Goals Patient Goals : Return to PLOF Short Term Goals Time Frame for Short Term Goals: 12 visits Short Term Goal 1: Patient will demonstrate indep with bed mobility with use of log roll technique Short Term Goal 2: Patient will verbalize and demonstrate 100% follow through of abd precautions Short Term Goal 3: Patient will demonstrate functional transfers using AD with 100% follow through of abd precautions with MO Short Term Goal 4: Pt able to tolerate 30 min of activity to include 15-20 reps of ex, balance and endurance training, & functional mobility with device to facilitate activity tolerance to WFL Short Term Goal 5: Patient will ambulate using AD >150' with MO Minutes PT Individual Minutes Time In: 1125 Time Out: 1210 Minutes: 45 * Kemar Powers DO - 09/26/2024 2:40 PM EST Images from the original note were not included. [facility] Office: [phone] Balbir Henderson DO, Warren Sierra DO, Kemar Powers DO, Sean Martinez DO, Kaveh Hurtado MD, Patsy Parekh MD, Edwardo Mckeon MD, Rosalind Randolph MD, Samy Vicente MD, Steve Begum MD, Luis M Kapoor MD, Stella Aleman DO, Ranjit Christian MD, Kayden Lozada MD, Vasiliy Henderson DO, Marianne Gutierrez MD, Og Spencer DO, Myra Maldonado MD, Lydia Lemus MD, Kathy Pacheco MD, Gus Stanley MD, Anjel Meeks MD, Vega Comer MD, Bindu Garcia MD, Tangela Forman MD, Enoch Joyce MD, Alfa Bullard MD, Jeremias Enciso DO, Sesar Dumont MD, Stella Kelly MD, Andrew Kelly MD, Zoila Archibald, COMMITTEE MEMBER, Zandra Kay, COMMITTEE MEMBER, Jeremias Whiteside, COMMITTEE MEMBER, Marium Muniz, [facility], Lashon Li, COMMITTEE MEMBER, Za Soares, COMMITTEE MEMBER, Marilynn Crocker, COMMITTEE MEMBER, Elvie Marcus, COMMITTEE MEMBER, Janet León, PAJimmyC, Denise Maddox PAJimmyC, Kacy Reynolds, COMMITTEE MEMBER, Alessandro Peralta, COMMITTEE MEMBER, Kandi Mejia, COMMITTEE MEMBER, Laly Rolle, COMMITTEE MEMBER, Meme Caldera, COMMITTEE MEMBER, Amanda French CNP, Em Chávez, COMMITTEE MEMBER [facility] IN-PATIENT SERVICE [facility] Progress Note 09/26/2024 2:40 PM Name: Lilliam Bajwa Acct: [id number] Room: [address] [place] [address] Day: 4 Admit Date: 09/22/2024 10:56 AM PCP: Jeremias Lopez MD Code Status: Full Code Subjective: C/C: Diverticulosis Interval History Status: improved. Patient is diet has been advanced to full liquid, tolerating thus far. Denies chest pain, shortnessof breath, nausea or vomiting, fevers or chills. Underwent further phosphorus replacement this morning. Brief History: Per previous documentation Patient presents for scheduled open sigmoid resection. She has a past medical history significant for persistent atrial fibrillation, hypertension, pulmonary fibrosis, CLARISSE, COPD, SBO status post colostomy. We are consulted for medical management. Review of Systems: Constitutional: negative for chills, fevers, sweats Respiratory: negative for cough, dyspnea on exertion, shortness of breath, wheezing Cardiovascular: negative for chest pain, chest pressure/discomfort, lower extremity edema, palpitations Gastrointestinal: negative for abdominal pain, constipation, diarrhea, nausea, vomiting Neurological: negative for dizziness, headache Medications: Allergies: Allergies Allergen Reactions Bupropion Itching Current Meds: Scheduled Meds: methocarbamol 750 mg Oral Q6H ketorolac 15 mg IntraVENous Q6H metoclopramide 5 mg IntraVENous Q6H famotidine 20 mg Oral BID guaiFENesin 600 mg Oral BID albuterol sulfate HFA 2 puff Inhalation 4x Daily RT potassium chloride 20 mEq Oral BID [Held by provider] apixaban 5 mg Oral BID escitalopram 20 mg Oral Daily levothyroxine 88 mcg Oral Daily sodium chloride flush 10 mL IntraVENous 2 times per day enoxaparin 40 mg SubCUTAneous Daily acetaminophen 1,000 mg Oral 3 times per day budesonide-formoterol 2 puff Inhalation BID RT tiotropium 2 puff Inhalation Daily RT metoprolol succinate 25 mg Oral Daily Continuous Infusions: sodium chloride PRN Meds: sodium phosphate 9.06 mmol in sodium chloride 0.9 % 250 mL IVPB OR sodium phosphate 18.15 mmol in sodium chloride 0.9 % 250 mL IVPB, oxyCODONE OR oxyCODONE, simethicone, albuterol sulfate HFA, sodium chloride flush, sodium chloride, magnesium sulfate, ondansetron OR ondansetron, HYDROmorphone, clonazePAM, metoprolol Data: Past Medical History: has a past medical history of Bowel obstruction (HCC), Chronic hypoxic respiratory failure, on home oxygen therapy, Colostomy in place (HCC), Colovaginal fistula, COPD without exacerbation (HCC), Hypothyroidism, Longstanding persistent atrial fibrillation (HCC), On home oxygentherapy, Primary hypertension, Pulmonary fibrosis (HCC), and Sleep apnea. Social History: reports that she has quit smoking. Her smoking use included cigarettes. She has never used smokeless tobacco. She reports current alcohol use. She reports that she does not use drugs. Family History: Family History Problem Relation Age of Onset Lung Cancer Mother COPD Father Vitals: BP (!) 129/90 Pulse 93 Temp 97.9 F (36.6 C) (Oral) Resp 16 Ht 1.549 m (5' 0.98 ) Wt 56.7 kg (125 lb) SpO2 98% BMI 23.63 kg/m Temp (24hrs), Av F (36.7 C), Min:97.7 F (36.5 C), Max:98.8 F (37.1 C) Recent Labs 09/23/24 1625 POCGLU 113* I/O (24Hr): Intake/Output Summary (Last 24 hours) at 09/26/2024 1440 Last data filed at 09/26/2024 1435 Gross per 24 hour Intake 2071.21 ml Output 1650 ml Net 421.21 ml Labs: Hematology: Recent Labs 09/24/2491609/25/24 0500 09/26/24 0607 WBC 13.6* 10.2 6.2 RBC 2.99* 2.94* 2.94* HGB 8.9* 8.7* 8.7* HCT 25.6* 25.6* 25.7* MCV 85.6 87.1 87.4 MCH 29.8 29.6 29.6 MCHC 34.8 34.0 33.9 RDW 14.2 14.4 14.3 PLT 237 245 287 MPV 9.5 9.8 9.6 Chemistry: Recent Labs 09/24/24 04409/24/2491609/24/2491609/24/24 1758 09/25/24 0500 09/26/24 0607 NA -- 135* -- -- 134* 136 K -- 3.3* -- -- 3.9 3.7 CL -- 102 -- -- 103 105 CO2 -- 25 -- -- 23 23 GLUCOSE -- 89 -- -- 82 90 BUN -- 3* -- -- 2* <1* CREATININE -- 0.4* -- -- 0.3* 0.3* MG -- 2.0 -- -- -- 2.0 ANIONGAP -- 9 -- -- 9 8* LABGLOM -- >90 -- -- >90 >90 CALCIUM -- 8.3* -- -- 8.3* 8.4* CAION 1.15 -- -- -- 1.14 -- PHOS -- 0.8* < > 2.3* 1.2* 2.1* < > = values in this interval not displayed. Recent Labs 09/23/24 1625 POCGLU 113* ABG:No results found for: POCPH , PHART , PH , POCPCO2 , MLK7BER , PCO2 , POCPO2 , PO2ART , PO2 , POCHCO3 , DAN2NHL , HCO3 , NBEA , PBEA , BEART , BE , THGBART , THB , XKZ9GBY , MNZJ9YOR , L6WNBDXD , O2SAT , FIO2 No results found for: SPECIAL No results found for: CULTURE Radiology: No results found. Physical Examination: General appearance: alert, cooperative and no distress Mental Status: oriented to person, place and time and normal affect Lungs: clear to auscultation bilaterally, normal effort Heart: regular rate and rhythm, no murmur Abdomen: soft, nontender, nondistended, normal bowel sounds, no masses, hepatomegaly, splenomegaly Extremities: no edema, redness, tenderness in the calves Skin: no gross lesions, rashes, induration Assessment: Hospital Problems Last Modified POA * (Principal) Diverticulitis of colon 09/22/2024 Yes COPD without exacerbation (HCC) 09/22/2024 Yes Chronic hypoxic respiratory failure, on home oxygen therapy 09/22/2024 Yes Primary hypertension 09/22/2024 Yes Longstanding persistent atrial fibrillation (HCC) 09/22/2024 Yes Hypothyroidism 09/22/2024 Yes Secondary hypercoagulable state (HCC) 09/22/2024 Yes Hyponatremia 09/22/[address] ([facility]) 09/24/2024 Yes Plan: Dietary advancement per surgery, full liquid diet with clear liquid supplements Oxygen and aerosols as needed PT and OT Continue present antihypertensive therapy, adjust as needed Ostomy care GI and DVT prophylaxis Trend labs, correct electrolytes as needed Kemar Powers DO 09/26/2024 2:40 PM * Viviane Key RN - 09/26/2024 10:[address] [facility] Ostomy Continence Nursing Progress Note NAME: Lilliam Bajwa AGE: 69 y.o. GENDER: female : 1955 TODAY'S DATE: 09/26/2024 [facility] nurse consult for Ostomy:left descending colon; had prior loop transverse colostomy . Patient known to [facility] nurse from previous admission for colostomy creation. Patient performs own ostomy care per self using Coloplast flat pouch #[id number]. Small amount of loose brown stool in appliance at time of [facility] nurse visit. Old pouch removed and new appliance placed. Ostomy is red, moist, and protrudes, measures 30mm. Patient can use previous appliance system with new ostomy. Surgical site dressing of iodoform gauze and ABD completed at visit. . Colostomy LLQ Loop (Active) Stomal Appliance 1 piece;Flat 09/26/24 1013 Stoma Assessment Red 09/26/24 1013 Peristomal Assessment Clean, dry & intact 09/26/24 1013 Mucocutaneous Junction Intact 09/26/24 1013 Treatment Site care;Liquid skin barrier;Barrier ring;Pouch change 09/26/24 1013 Stool Appearance Soft 09/26/24 1013 Stool Color Red 09/26/24 1013 Stool Amount Medium 09/26/24 1013 Number of days: 110 Intake/Output Summary (Last 24 hours) at 09/26/2024 1020 Last data filed at 09/26/2024 0741 Gross per 24 hour Intake 2071.21 ml Output 1795 ml Net 276.21 ml * Perla Mo OTA - 09/26/2024 8:43 AM EST Occupational Therapy Facility/Department: [facility] Rehabilitation Occupational Therapy Daily Treatment Note Date: 09/26/24 Patient Name: Lilliam Bajwa Room: 1025/1025-01 Account: [id number] : 1955 (69 y.o.) Gender: female Past Medical History: has a past medical history of Bowel obstruction (HCC), Chronic hypoxic respiratory failure, on home oxygen therapy, Colostomy in place (HCC), Colovaginal fistula, COPD without exacerbation (HCC), Hypothyroidism, Longstanding persistent atrial fibrillation (HCC), On home oxygentherapy, Primary hypertension, Pulmonary fibrosis (HCC), and Sleep apnea. Past Surgical History: has a past surgical history that includes section, low transverse; Hysterectomy; bronchoscopy; Breast biopsy; Cardiac catheterization; laparotomy (N/A, 06/08/2024); Colonoscopy (N/A, 07/18/2024); other surgical history (Right); Foot surgery (Right); and Sigmoid Colectomy (N/A, 09/22/2024). Restrictions Restrictions/Precautions: Surgical Protocols, Fall Risk, General Precautions Other Position/Activity Restrictions: Up to chair, telemetry, R hand IV, new colostomy, DAILY drain, s/p abd sx, ABD prec Required Braces or Orthoses?: No Subjective Subjective: Spoke with RN (Melissa) who stated pt is appropriate for therapy and had pain meds at 6am. Pt in bed upon arrival with in recliner. Pt agreeable to get washed up and up for breakfast. Restrictions/Precautions: Surgical Protocols;Fall Risk;General Precautions Objective Cognition Arousal/Alertness: Appears intact Following Commands: Follows one step commands with repetition Attention Span: Appears intact Memory: Decreased recall of precautions;Decreased recall of recent events Safety Judgement: Decreased awareness of need for assistance;Decreased awareness of need for safety Problem Solving: Assistance required to identify errors made;Assistance required to correct errors made;Decreased awareness of errors Insights: Decreased awareness of deficits Initiation: Requires cues for some Sequencing: Requires cues for some Orientation Overall Orientation Status: Within Functional Limits Perception Overall Perceptual Status: WFL ADL Grooming/Oral Hygiene Assistance Level: Set-up;Verbal cues;Increased time to complete;Stand by assist Skilled Clinical Factors: Pt sat on toilet to wash face and then stood with RW at sink to complete oral care and brush hair for 8+ minutes. Upper Extremity Bathing Assistance Level: Set-up;Verbal cues;Increased time to complete;Moderate assistance Skilled Clinical Factors: seated on toilet using JUANPABLO HEX soap Lower Extremity Bathing Assistance Level: Set-up;Verbal cues;Increased time to complete;Moderate assistance Skilled Clinical Factors: standing with RW for mitali bathing Upper Extremity Dressing Assistance Level: Set-up;Verbal cues;Increased time to complete;Moderate assistance Skilled Clinical Factors: seated to phaneuf hospital gowns Toileting Assistance Level: Set-up;Verbal cues;Stand by assist Skilled Clinical Factors: pt was able to wipe after voiding while seated on toilet Toilet Transfers Technique: Stand step Equipment: Standard toilet;Grab bars Additional Factors: Set-up;Verbal cues;Cues for hand placement;Increased time to complete Assistance Level: Stand by assist Skilled Clinical Factors: using RW Functional Mobility Device: Rolling walker Activity: To/From bathroom Assistance Level: Stand by assist Skilled Clinical Factors: VCs for upright posture, staying inside walker, managing/maneuvering walker, line assist/awareness, pursed lip breathing tech and overall safety. Pt moaning and mouth breathing throughout session. Bed Mobility Overall Assistance Level: Contact Guard Assist Additional Factors: Set-up;Verbal cues;Increased time to complete;With handrails (HOB slightly raised) Supine to Sit Assistance Level: Contact guard assist Skilled Clinical Factors: Verbal/tatcile cues for log roll technique. Scooting Assistance Level: Stand by assist Skilled Clinical Factors: to scoot to EOB Transfers Surface: From bed;Standard toilet;To chair with arms Additional Factors: Set-up;Verbal cues;Hand placement cues;Increased time to complete Device: Walker Sit to Stand Assistance Level: Stand by assist Stand to Sit Assistance Level: Stand by assist Bed To/From Chair Skilled Clinical Factors: VCs for hand placement, upright posture, staying inside walker, walker mgmt/safety, line assist/awareness, backing upt o surface, reaching back, controlled stand to sit and overall safety. Neuromuscular Education Neuromuscular education: Yes NDT Treatment: Gait ;Sitting;Standing Assessment Assessment Assessment: Pt tolerated session fair and is progressing towards goals. Pt req'd CGA with bed mobility and SBA with functional transfers/mobility using RW. Pt completed UB care with MOD A and LB carewith MAX A. Pt stood at sink with RW for oral care and brushing hair with SBA for safety for 8+ min. Pt remains limited by global weakness, decreased activity tolerance, ABD pain, ABD precautions, cog nitive deficits and fatigue. Cont with OT POC to ensure a safe return to PLOF as able. Activity Tolerance: Patient limited by fatigue;Patient limited by pain;Patient limited by endurance Discharge Recommendations: Patient would benefit from continued therapy after discharge Safety Devices Safety Devices in place: Yes Type of devices: All fall risk precautions in place;Left in chair;Nurse notified;Call light within reach;Chair alarm in place Patient Education Education Education Given To: Patient Education Provided: Mobility Training;Fall Prevention Strategies;Transfer Training;Energy Conservation;Cognition;Precautions;Safety;ADL Function;Equipment Education Method: Verbal;Teach Back Barriers to Learning: None Education Outcome: Verbalized understanding;Demonstrated understanding;Continued education needed Plan Occupational Therapy Plan Times Per Week: 5-6x/week 1-2x/day as tolerated Current Treatment Recommendations: Strengthening;Balance training;Functional mobility training;Endurance training;Pain management;Equipment evaluation, education, & procurement;Modalities;Positioning;Safety education & training;Self-Care / ADL Goals Patient Goals Patient goals : To go home! Short Term Goals Time Frame for Short Term Goals: By discharge, pt to demo: Short Term Goal 1: bed mobility tasks to MOD I/IND with Good use of logroll tech and without use ofbedrails. Short Term Goal 2: ADL transfers and functional mobility tasks to SBA/SUP with Good safety/pacing and use of RW as needed. Short Term Goal 3: UB ADLs and LB ADLs to SBA with Good adherence to surgical precautions and use of AE/compensatory strategies as needed. Short Term Goal 4: toileting routine to MinAx1 with Good safety/pacing and use of AD/grab bars/BSC as needed. Short Term Goal 5: Pt/family to be IND with abdominal/surgical precautions, fall prevention strategies, EC/WS tech, compensatory ADL tech, incentive spirometer use, and potential equipment/discharge recommendations, with use of handouts as needed. AM-PAC Score [facility] Inpatient Daily Activity Raw Score: 17 (09/26/24837) [facility] Inpatient ADL T-Scale Score : 37.26 (09/26/24837) ADL Inpatient CMS 0-100% Score: 50.11 (09/26/24837) ADL Inpatient CMS G-Code Modifier : CK (09/26/24837) Therapy Time Individual Concurrent Group Co-treatment Time In 0759 Time Out 0825 Minutes 26 AXEL Howard * Za Mason DO - 09/26/2024 6:29 AM EST General Surgery: Daily Progress Note PATIENT NAME: Lilliam Bajwa TODAY'S DATE: 09/26/2024, 6:29 AM Cc: shortness of breath, abd pressure. SUBJECTIVE: Patient was seen and evaluated at bedside. Afebrile, vitals normal and stable. Abdominal pain improving but still has pain. Worked with PT/OT yesterday. Feels things moving in her abdomen. Slight nausea. Overall feeling improvement each day. DAILY drain with 170 cc output Adequate urine output. No gasor stool from ostomy noted. OBJECTIVE: VITALS: BP 132/89 Pulse 87 Temp 98.2 F (36.8 C) (Oral) Resp 19 Ht 1.549 m (5' 0.98 ) Wt 56.7 kg (125 lb) SpO2 97% BMI 23.63 kg/m INTAKE/OUTPUT: Intake/Output Summary (Last 24 hours) at 09/26/2024 0629 Last data filed at 09/26/2024 0151 Gross per 24 hour Intake 2551.21 ml Output 1720 ml Net 831.21 ml PHYSICAL EXAM: General Appearance: awake, alert, oriented, mild distress HEENT: Normocephalic, atraumatic, mucus membranes moist Heart: Regular rate and rhythm Lungs: Increased work of breathing, partially alleviated with nebulizer Abdomen: Soft, mildly distended, tender to palpation around incisions. Ostomy is pink and healthy. Incision: Midline incision clean and dry intact with karen. Previous ostomy incision with mild erythema surrounding skin edges, packing replaced Extremities: No cyanosis, pitting edema, rashes noted. Skin: Skin color, texture, turgor normal. No rashes or lesions. Data: CBC: Recent Labs 09/24/24 0917 09/25/24 0500 WBC 13.6* 10.2 HGB 8.9* 8.7* PLT 237 245 Chemistry: Recent Labs 09/24/24 0442 09/24/24 0917 09/24/24 1758 09/25/24 0500 NA -- 135* -- 134* K -- 3.3* -- 3.9 CL -- 102 -- 103 CO2 -- 25 -- 23 GLUCOSE -- 89 -- 82 BUN -- 3* -- 2* CREATININE -- 0.4* -- 0.3* MG -- 2.0 -- -- ANIONGAP -- 9 -- 9 LABGLOM -- >90 -- >90 CALCIUM -- 8.3* -- 8.3* CAION 1.15 -- -- 1.14 PHOS -- 0.8* 2.3* 1.2* Hepatic: No results for input(s): AST , ALT , ALKPHOS , BILITOT , BILIDIR in the last 72 hours. Invalid input(s): ALB Coagulation: No results for input(s): APTT , INR in the last 72 hours. Invalid input(s): PROT Radiology Review: No results found. ASSESSMENT: Active Hospital Problems Diagnosis Date Noted Diverticulitis of colon [K57.32] 09/22/[address] (HCC) [Z93.3] 06/09/2024 COPD without exacerbation (HCC) [J44.9] 06/07/2024 Longstanding persistent atrial fibrillation (HCC) [I48.11] 06/07/2024 Secondary hypercoagulable state (HCC) [D68.69] 06/07/2024 Primary hypertension [I10] 06/07/2024 Hypothyroidism [E03.9] 06/07/2024 Hyponatremia [E87.1] 06/07/2024 Chronic hypoxic respiratory failure, on home oxygen therapy [J96.11, Z99.81] 06/07/2024 69 y.o. female postop day 4 status post open sigmoid resection, takedown of loop colostomy and creation of new descending colostomy Plan: Advance to FLD - monitor nausea and back down to CLD if needed Clear liquid ensure twice/day Pain control: tylenol, robaxin, toradol; oxy and dilaudid prn Continue reglan D/c IVF Monitor for bowel function via ostomy F/u AM labs Replace electrolytes prn Monitor DAILY drain output Appreciate medicine assistance with medical mgmt OOB, encourage ambulation/activity w/ PT/OT Incentive spirometer at least 10 times per hour while awake Wound care: daily AM packing changes to old colostomy site with 1/2 in iodoform in between karen,cover with fluff/abd; daily or prn dressing change to midline incision with fluff/abd. Cover with paper tape Restart home meds Continue to hold Eliquis for now Lovenox daily dvt ppx Dispo: ok for med/surg, await return of bowel function, pain control, monitor respiratory status * Lashon Li APRN - VERÓNICA - 09/25/2024 11:42 AM EST Images from the original note were not included. [facility] Office: [phone] Balbir Henderson DO, Warren Sierra DO, Kemar Powers DO, Sean Martinez DO, Kaveh Hurtado MD, Patsy Parekh MD, Edwardo Mckeon MD, Rosalind Randolph MD, Samy Vicente MD, Steve Begum MD, Luis M Kapoor MD, Stella Aleman DO, Ranjit Christian MD, Kayden Lozada MD, Vasiliy Henderson DO, Marianne Gutierrez MD, Og Spencer DO, Myra Maldonado MD, Lydia Lemus MD, Kathy Pacheco MD, Gus Stanley MD, Anjel Meeks MD, Vega Comer MD, Bindu Garcia MD, Tangela Forman MD, Enoch Joyce MD, Alfa Bullard MD, Jeremias Enciso DO, Sesar Dumont MD, Stella Kelly MD, Andrew Kelly MD, Zoila Archibald, COMMITTEE MEMBER, Zandra Kay CNP, Jeremias Whiteside, COMMITTEE MEMBER, Marium Muniz, SWAPNA, Lashon Li, COMMITTEE MEMBER, Za Soares CNP, Marilynn Crocker, COMMITTEE MEMBER, Elvie Marcus, COMMITTEE MEMBER, Janet León, PA-C, Denise Maddox, PA-C, Kacy Reynolds, COMMITTEE MEMBER, Alessandro Peralta, COMMITTEE MEMBER, Kandi Mejai, COMMITTEE MEMBER, Laly Rolle, COMMITTEE MEMBER, Meme Caldera, COMMITTEE MEMBER, Amanda French, COMMITTEE MEMBER, Em Chávez, COMMITTEE MEMBER [facility] IN-PATIENT SERVICE [facility] Progress Note 09/25/2024 11:43 AM Name: Lilliam Bajwa Acct: [id number] Room: [facility]/1025-[facility] Day: 3 Admit Date: 09/22/2024 10:56 AM PCP: Jeremias Lopez MD Code Status: Full Code Subjective: C/C: Abdominal pain Interval History Status: not changed. Patient resting in bed. She complains of dull abdominal pain across her upper abdomen and sharper pain in her lower abdomen. She says the pain gets worse at times and the pain medicine helps some. She has no complaints of fever, chills, vomiting. She does get nauseous with getting up at times. Discussed with primary RN. Brief History: Per previous documentation: Patient presents for scheduled open sigmoid resection. She has a past medical history significant for persistent atrial fibrillation, hypertension, pulmonary fibrosis, CLARISSE, COPD, SBO status post colostomy. We are consulted for medical management. Review of Systems: Review of Systems Constitutional: Negative. HENT: Negative for congestion, rhinorrhea and trouble swallowing. Eyes: Negative. Respiratory: Positive for cough. Negative for shortness of breath. Chest congestion Cardiovascular: Negative. Gastrointestinal: Positive for abdominal pain and nausea. Negative for vomiting. Genitourinary: Negative. Musculoskeletal: Negative for gait problem and myalgias. Skin: Negative. Neurological: Positive for dizziness. Negative for weakness, light-headedness, numbness and headaches. Psychiatric/Behavioral: Negative. Medications: Allergies: No Known Allergies Current Meds: Scheduled Meds: sodium phosphate IVPB (PERIPHERAL line) 30 mmol IntraVENous Once methocarbamol 750 mg Oral Q6H ketorolac 15 mg IntraVENous Q6H metoclopramide 5 mg IntraVENous Q6H famotidine 20 mg Oral BID albuterol sulfate HFA 2 puff Inhalation 4x Daily RT potassium chloride 20 mEq Oral BID [Held by provider] apixaban 5 mg Oral BID escitalopram 20 mg Oral Daily levothyroxine 88 mcg Oral Daily sodium chloride flush 10 mL IntraVENous 2 times per day enoxaparin 40 mg SubCUTAneous Daily acetaminophen 1,000 mg Oral 3 times per day budesonide-formoterol 2 puff Inhalation BID RT tiotropium 2 puff Inhalation Daily RT metoprolol succinate 25 mg Oral Daily Continuous Infusions: sodium chloride 50 mL/hr at 09/25/24 0604 sodium chloride PRN Meds: oxyCODONE OR oxyCODONE, simethicone, albuterol sulfate HFA, sodium chloride flush, sodium chloride, magnesium sulfate, ondansetron OR ondansetron, HYDROmorphone, clonazePAM, metoprolol Data: Past Medical History: has a past medical history of Bowel obstruction (HCC), Chronic hypoxic respiratory failure, on home oxygen therapy, Colostomy in place (HCC), Colovaginal fistula, COPD without exacerbation (HCC), Hypothyroidism, Longstanding persistent atrial fibrillation (HCC), On home oxygentherapy, Primary hypertension, Pulmonary fibrosis (HCC), and Sleep apnea. Social History: reports that she has quit smoking. Her smoking use included cigarettes. She has never used smokeless tobacco. She reports current alcohol use. She reports that she does not use drugs. Family History: Family History Problem Relation Age of Onset Lung Cancer Mother COPD Father Vitals: BP 118/84 Pulse 93 Temp 97.9 F (36.6 C) (Oral) Resp 17 Ht 1.549 m (5' 0.98 ) Wt 54.3 kg (119 lb 9.6 oz) SpO2 94% BMI 22.61 kg/m Temp (24hrs), Av.2 F (36.8 C), Min:97.9 F (36.6 C), Max:99 F (37.2 C) Recent Labs 09/22/24 1902 09/23/24 1145 09/23/24 1625 POCGLU 141* 122* 113* I/O (24Hr): Intake/Output Summary (Last 24 hours) at 09/25/2024 1143 Last data filed at 09/25/2024 1015 Gross per 24 hour Intake 2482.67 ml Output 1295 ml Net 1187.67 ml Labs: Hematology: Recent Labs 09/23/24 0458 09/24/24 0917 09/25/24 0500 WBC 19.4* 13.6* 10.2 RBC 3.53* 2.99* 2.94* HGB 10.4* 8.9* 8.7* HCT 30.1* 25.6* 25.6* MCV 85.3 85.6 87.1 MCH 29.5 29.8 29.6 MCHC 34.6 34.8 34.0 RDW 14.2 14.2 14.4 PLT 276 237 245 MPV 9.3 9.5 9.8 Chemistry: Recent Labs 09/23/24 0458 09/24/24 0442 09/24/24 0917 09/24/24 1758 09/25/24 0500 NA 137 -- 135* -- 134* K 3.3* -- 3.3* -- 3.9 CL 107 -- 102 -- 103 CO2 19* -- 25 -- 23 GLUCOSE 122* -- 89 -- 82 BUN 4* -- 3* -- 2* CREATININE 0.6 -- 0.4* -- 0.3* MG 1.5* -- 2.0 -- -- ANIONGAP 10 -- 9 -- 9 LABGLOM >90 -- >90 -- >90 CALCIUM 8.0* -- 8.3* -- 8.3* CAION 1.10* 1.15 -- -- 1.14 PHOS 2.9 -- 0.8* 2.3* 1.2* Recent Labs 09/22/24 1902 09/23/24 1145 09/23/24 1625 POCGLU 141* 122* 113* Radiology: No results found. Physical Examination: Physical Exam Vitals and nursing note reviewed. Constitutional: General: She is in acute distress. Appearance: She is ill-appearing. She is not toxic-appearing or diaphoretic. Comments: Mild distress due to abdominal pain HENT: Head: Normocephalic and atraumatic. Right Ear: External ear normal. Left Ear: External ear normal. Nose: Nose normal. No rhinorrhea. Mouth/Throat: Mouth: Mucous membranes are moist. Eyes: General: No scleral icterus. Right eye: No discharge. Left eye: No discharge. Extraocular Movements: Extraocular movements intact. Conjunctiva/sclera: Conjunctivae normal. Pupils: Pupils are equal, round, and reactive to light. Cardiovascular: Rate and Rhythm: Normal rate and regular rhythm. Pulses: Normal pulses. Heart sounds: Normal heart sounds. No murmur heard. No friction rub. No gallop. Pulmonary: Effort: No respiratory distress. Breath sounds: Rhonchi present. No wheezing or rales. Comments: Shallow breathing due to abdominal discomfort Abdominal: General: There is distension. Tenderness: There is abdominal tenderness. There is guarding. Hernia: No hernia is present. Comments: Ostomy intact Musculoskeletal: General: Normal range of motion. Cervical back: Normal range of motion and neck supple. Right lower leg: No edema. Left lower leg: No edema. Skin: General: Skin is warm. Coloration: Skin is not jaundiced. Findings: No bruising, erythema, lesion or rash. Neurological: General: No focal deficit present. Mental Status: She is alert and oriented to person, place, and time. Motor: Weakness present. Comments: Generalized weakness Psychiatric: Attention and Perception: Attention normal. Mood and Affect: Mood is anxious. Affect is flat. Speech: Speech normal. Behavior: Behavior normal. Behavior is cooperative. Cognition and Memory: Cognition and memory normal. Judgment: Judgment normal. Assessment: Hospital Problems Last Modified POA * (Principal) Diverticulitis of colon 09/22/2024 Yes COPD without exacerbation (HCC) 09/22/2024 Yes Chronic hypoxic respiratory failure, on home oxygen therapy 09/22/2024 Yes Primary hypertension 09/22/2024 Yes Longstanding persistent atrial fibrillation (HCC) 09/22/2024 Yes Hypothyroidism 09/22/2024 Yes Secondary hypercoagulable state (HCC) 09/22/2024 Yes Hyponatremia 09/22/[address] (HCC) 09/24/2024 Yes Plan: Diverticulitis of colon/colostomy in place: Pain control per general surgery. Encourage incentive spirometry use. Labs reviewed. Labs as ordered. Continue postop care as ordered. Continue ostomy careas ordered. Monitor ostomy output. Simethicone as needed for gas pain. COPD without exacerbation/chronic hypoxic respiratory failure, on home O2: Maintain supplemental [id number]. . Mucinex twice daily. Encourage incentive parameter use. Monitor SpO2 with vitalsigns. Respiratory meds as ordered Hypertension: Monitor vital signs as ordered. BP meds as ordered Longstanding persistent atrial fibrillation: Resume Eliquis when okay with general surgery. Telemetry. Continue beta-[place] Secondary hypercoagulable state: Patient has a history of [id number] Eliquis when okay with surgery. Continue Lovenox for DVT prophylaxis for now Hypothyroidism: Continue Synthroid Will continue to follow PATSY Hernandez NP 09/25/2024 11:43 AM * Perla Mo OTA - 09/25/2024 8:49 AM EST Occupational Therapy Facility/Department: [facility] Occupational Therapy Daily Treatment Note Date: 09/25/24 Patient Name: Lilliam Bajwa Room: 1025/1025-01 Account: [id number] : 1955 (69 y.o.) Gender: female Past Medical History: has a past medical history of Bowel obstruction (HCC), Chronic hypoxic respiratory failure, on home oxygen therapy, Colostomy in place (HCC), Colovaginal fistula, COPD without exacerbation (HCC), Hypothyroidism, Longstanding persistent atrial fibrillation (HCC), On home oxygentherapy, Primary hypertension, Pulmonary fibrosis (HCC), and Sleep apnea. Past Surgical History: has a past surgical history that includes section, low transverse; Hysterectomy; bronchoscopy; Breast biopsy; Cardiac catheterization; laparotomy (N/A, 06/08/2024); Colonoscopy (N/A, 07/18/2024); other surgical history (Right); Foot surgery (Right); and Sigmoid Colectomy (N/A, 09/22/2024). Restrictions Restrictions/Precautions: Surgical Protocols, Fall Risk, General Precautions Other Position/Activity Restrictions: Up to chair, telemetry, R hand IV, new colostomy, DAILY drain, s/p abd sx, ABD prec Required Braces or Orthoses?: No Subjective Subjective: Pt in bed upon arrival with present. Pt agreeable to get washed up, use bathroom and get up to chair for breakfast. Restrictions/Precautions: Surgical Protocols;Fall Risk;General Precautions Objective Cognition Overall Cognitive Status: Exceptions Arousal/Alertness: Appears intact Following Commands: Follows one step commands with repetition Attention Span: Appears intact Memory: Decreased recall of precautions;Decreased recall of recent events Safety Judgement: Decreased awareness of need for assistance;Decreased awareness of need for safety Problem Solving: Assistance required to identify errors made;Assistance required to correct errors made;Decreased awareness of errors Insights: Decreased awareness of deficits Initiation: Requires cues for some Sequencing: Requires cues for some Orientation Overall Orientation Status: Within Functional Limits Orientation Level: Oriented to place;Oriented to person;Oriented to situation;Disoriented to time Perception Overall Perceptual Status: WFL ADL Grooming/Oral Hygiene Assistance Level: Set-up;Verbal cues;Increased time to complete;Stand by assist Skilled Clinical Factors: Pt sat on toilet to wash face and comb hair then stood with RW at sink tocomplete oral care for 6+ minutes. Upper Extremity Bathing Assistance Level: Set-up;Verbal cues;Increased time to complete;Moderate assistance Skilled Clinical Factors: seated on toilet using DYNBA HEX soap Lower Extremity Bathing Assistance Level: Set-up;Verbal cues;Increased time to complete;Maximum assistance Skilled Clinical Factors: standing with RW for mitali bathing Upper Extremity Dressing Assistance Level: Set-up;Verbal cues;Increased time to complete;Moderate assistance Skilled Clinical Factors: seated to chane gowns Toileting Assistance Level: Set-up;Verbal cues;Stand by assist Skilled Clinical Factors: pt was able to wipe after voiding while seated on toilet Toilet Transfers Technique: Stand step Equipment: Standard toilet;Grab bars Additional Factors: Set-up;Verbal cues;Cues for hand placement;Increased time to complete Assistance Level: Stand by assist;Contact guard assist Skilled Clinical Factors: using RW Functional Mobility Device: Rolling walker Activity: To/From bathroom Assistance Level: Stand by assist;Contact guard assist Skilled Clinical Factors: VCs for upright posture, staying inside walker, managing/maneuvering walker, line assist/awareness, pursed lip breathing tech and overall safety. Pt moaning throughout session. Bed Mobility Overall Assistance Level: Minimal Assistance Additional Factors: Set-up;Verbal cues;Increased time to complete;With handrails (HOB slightly raised) Supine to Sit Assistance Level: Minimal assistance Skilled Clinical Factors: Verbal/tatcile cues for log roll technique. Transfers Surface: From bed;Standard toilet;To chair with arms Additional Factors: Set-up;Verbal cues;Hand placement cues;Increased time to complete Device: Walker Stand to Sit Assistance Level: Stand by assist;Contact guard assist Bed To/From Chair Assistance Level: Stand by assist;Contact guard assist Skilled Clinical Factors: VCs for hand placement, upright posture, staying inside walker, walker mgmt/safety, line assist/awareness, backing upt o surface, reaching back, controlled stand to sit and overall safety. Neuromuscular Education Neuromuscular education: Yes NDT Treatment: Gait ;Sitting;Standing Assessment Assessment Assessment: Pt tolerated session fair and is progressing towards goals. Pt req'd MIN A with bed mobility and SBA/CGA with functional transfers/mobility using RW. Pt needs german walker to use in room, NETWORK CABLER (Terri) notified to bring for PT session. Pt completed UB care with MOD A and LB care with MAX A. Pt stood at sink with RW for oral care with SBA for safety for 6+ min. Pt remains limited by global weakness, decreased activity tolerance, ABD pain, ABD precautions, cognitive deficits and fatigue. Cont with OT POC to ensure a safe return to PLOF as able. Activity Tolerance: Patient limited by fatigue;Patient limited by pain;Patient limited by endurance Discharge Recommendations: Patient would benefit from continued therapy after discharge Safety Devices Safety Devices in place: Yes Type of devices: Left in chair;Nurse notified;All fall risk precautions in place;Call light within reach;Chair alarm in place;Patient at risk for falls Patient Education Education Education Given To: Patient Education Provided: Mobility Training;Fall Prevention Strategies;Transfer Training;Energy Conservation;Cognition;Precautions;Safety;ADL Function;Equipment Education Method: Verbal;Teach Back Barriers to Learning: Cognition Education Outcome: Verbalized understanding;Demonstrated understanding;Continued education needed Patient Education - Abdominal Precautions - Log Roll Plan Occupational Therapy Plan Times Per Week: 5-6x/week 1-2x/day as tolerated Current Treatment Recommendations: Strengthening;Balance training;Functional mobility training;Endurance training;Pain management;Equipment evaluation, education, & procurement;Modalities;Positioning;Safety education & training;Self-Care / ADL Goals Patient Goals Patient goals : To go home! Short Term Goals Time Frame for Short Term Goals: By discharge, pt to demo: Short Term Goal 1: bed mobility tasks to MOD I/IND with Good use of logroll tech and without use ofbedrails. Short Term Goal 2: ADL transfers and functional mobility tasks to SBA/SUP with Good safety/pacing and use of RW as needed. Short Term Goal 3: UB ADLs and LB ADLs to SBA with Good adherence to surgical precautions and use of AE/compensatory strategies as needed. Short Term Goal 4: toileting routine to MinAx1 with Good safety/pacing and use of AD/grab bars/BSC as needed. Short Term Goal 5: Pt/family to be IND with abdominal/surgical precautions, fall prevention strategies, EC/WS tech, compensatory ADL tech, incentive spirometer use, and potential equipment/discharge recommendations, with use of handouts as needed. AM-PAC Score AM-PAC Inpatient Daily Activity Raw Score: 16 (09/25/24854) AM-PAC Inpatient ADL T-Scale Score : 35.96 (09/25/24854) ADL Inpatient CMS 0-100% Score: 53.32 (09/25/24854) ADL Inpatient CMS G-Code Modifier : CK (09/25/24854) Therapy Time Individual Concurrent Group Co-treatment Time In 0814 Time Out 0853 Minutes 39 AXEL Howard * Marcela Francois MD - 09/25/2024 5:45 AM EST General Surgery: Daily Progress Note PATIENT NAME: Lilliam Bajwa TODAY'S DATE: 09/25/2024, 5:45 AM Cc: shortness of breath, abd pressure. SUBJECTIVE: Patient was seen and evaluated at bedside. Tachycardia did resolve yesterday. She had exertional dyspnea while ambulating to the bathroom this morning. Alleviated with home nebulizer. DAILY drain with 180 cc of dark sanguinous output. Adequate urine output. No gas or stool from ostomy noted. OBJECTIVE: VITALS: BP 129/87 Pulse 93 Temp 97.9 F (36.6 C) (Oral) Resp 16 Ht 1.549 m (5' 0.98 ) Wt 54.3 kg (119 lb 9.6 oz) SpO2 94% BMI 22.61 kg/m INTAKE/OUTPUT: Intake/Output Summary (Last 24 hours) at 09/25/2024 0545 Last data filed at 09/25/2024 0446 Gross per 24 hour Intake 1842.1 ml Output 830 ml Net 1012.1 ml PHYSICAL EXAM: General Appearance: awake, alert, oriented, mild distress HEENT: Normocephalic, atraumatic, mucus membranes moist Heart: Regular rate and rhythm Lungs: Increased work of breathing, partially alleviated with nebulizer Abdomen: Soft, mildly distended, tender to palpation around incisions. Ostomy is pink and healthy. Incision: Midline incision clean and dry intact with karen. Previous ostomy incision with mild erythema surrounding skin edges, packing replaced Extremities: No cyanosis, pitting edema, rashes noted. Skin: Skin color, texture, turgor normal. No rashes or lesions. Data: CBC: Recent Labs 09/23/24 0458 09/24/24 0917 WBC 19.4* 13.6* HGB 10.4* 8.9* PLT 276 237 Chemistry: Recent Labs 09/22/24 1218 09/23/24 0458 09/24/24 0442 09/24/24 0917 09/24/24 1758 NA 132* 137 -- 135* -- K 3.7 3.3* -- 3.3* -- CL 97* 107 -- 102 -- CO2 23 19* -- 25 -- GLUCOSE 101 122* -- 89 -- BUN 4* 4* -- 3* -- CREATININE 0.5 0.6 -- 0.4* -- MG -- 1.5* -- 2.0 -- ANIONGAP 12 10 -- 9 -- LABGLOM >90 >90 -- >90 -- CALCIUM 9.6 8.0* -- 8.3* -- CAION -- 1.10* 1.15 -- -- PHOS -- 2.9 -- 0.8* 2.3* Hepatic: No results for input(s): AST , ALT , ALKPHOS , BILITOT , BILIDIR in the last 72 hours. Invalid input(s): ALB Coagulation: No results for input(s): APTT , INR in the last 72 hours. Invalid input(s): PROT Radiology Review: No results found. ASSESSMENT: Active Hospital Problems Diagnosis Date Noted Diverticulitis of colon [K57.32] 09/22/[address] (HCC) [Z93.3] 06/09/2024 COPD without exacerbation (HCC) [J44.9] 06/07/2024 Longstanding persistent atrial fibrillation (HCC) [I48.11] 06/07/2024 Secondary hypercoagulable state (HCC) [D68.69] 06/07/2024 Primary hypertension [I10] 06/07/2024 Hypothyroidism [E03.9] 06/07/2024 Hyponatremia [E87.1] 06/07/2024 Chronic hypoxic respiratory failure, on home oxygen therapy [J96.11, Z99.81] 06/07/2024 69 y.o. female postop day 2 status post open sigmoid resection, takedown of loop colostomy and creation of new descending colostomy Plan: Continue clear liquids for now with intermittent nausea and bloating Add clear liquid ensure twice/day Pain control: tylenol, robaxin, oxycodone; dilaudid prn NS at 50cc/hr until having adequate PO intake Monitor for bowel function via ostomy F/u AM labs Replace electrolytes prn Monitor tachycardia -improving Monitor DAILY drain output Appreciate medicine assistance with medical mgmt OOB, encourage ambulation/activity w/ PT/OT Incentive spirometer at least 10 times per hour while awake Wound care: daily AM packing changes to old colostomy site with 1/2 in iodoform in between karen,cover with fluff/abd; daily or prn dressing change to midline incision with fluff/abd. Cover with paper tape Restart home meds Continue to hold Eliquis for now Lovenox daily dvt ppx Dispo: continue current care in stepdown, await return of bowel function, pain control, monitor respiratory status Associated attestation - Za Mason DO - 09/25/2024 6:40 AM EST Patient seen and examined at bedside. Continues to have abd pain with nausea but no emesis. Pt reports not getting any Ensure shakes yesterday, tolerating clears. Still waiting for ostomy function. Abd softly distended, TTP. Pain control - cont tylenol, robaxin q6hr, add toradol, oxy 5-10; dilaudid prn Replace electrolytes OOB and ambulate at least BID in addition to PT/OT Up into a chair for majority of the day Ensure patient has protein shakes with each meal Aggressive IS use Continue to monitor for bowel function * Cori Blackmon OTA - 09/24/2024 1:31 PM EST Occupational Therapy Facility/Department: [facility] PROGRESSIVE CARE Daily Treatment Note NAME: Lilliam Resendiz Aydee : 1955 Date of Service: 09/24/2024 Discharge Recommendations: Patient would benefit from continued therapy after discharge Due to recent hospitalization and medical condition, pt would benefit from additional intermittent skilled therapy at time of discharge. Please refer to the AM-PAC score for current functional status. Patient Diagnosis(es): The encounter diagnosis was Diverticulitis. Assessment Assessment: Pt tolerated tx well and is progressing towards goals, although continues to requires Sol with transfers. Pt would benefit from continued skilled OT services to address deficits in areasof functional balance, functional reach, ADL completion, safety awareness, ADL transfers, bed mobility, UE strength, and functional mobility, all to ensure safe return home to [facility] and decrease caregiver burden. Activity Tolerance: Patient tolerated treatment well Discharge Recommendations: Patient would benefit from continued therapy after discharge Plan Occupational Therapy Plan Times Per Week: 5-6x/week 1-2x/day as tolerated Current Treatment Recommendations: Strengthening;Balance training;Functional mobility training;Endurance training;Pain management;Equipment evaluation, education, & procurement;Modalities;Positioning;Safety education & training;Self-Care / ADL Subjective Subjective Subjective: Pt agreeable to therapy. Pain: Sx pain in abdomen Orientation Overall Orientation Status: Within Functional Limits Cognition Overall Cognitive Status: Exceptions Arousal/Alertness: Appears intact Attention Span: Appears intact Memory: Decreased recall of precautions Safety Judgement: Decreased awareness of need for assistance;Decreased awareness of need for safety Problem Solving: Decreased awareness of errors Insights: Decreased awareness of deficits Initiation: Requires cues for some Sequencing: Requires cues for some Objective Vitals O2 Device: Nasal cannula Bed Mobility Training: Moderate assistance;Additional time (HOB to 30 degrees, with use of bed rails. Edu on log rolling tech with good carryover.) Interventions: Safety awareness training;Tactile cues;Visual cues;Verbal cues Rolling: Moderate assistance Scooting: Minimum assistance Transfer Training: Minimal assistance (From EOB to RW with max repeated VC for breathing tech to decrease pain and increase safety.) Interventions: Safety awareness training Sit to Stand: Minimum assistance Stand to Sit: Minimum assistance Functional Mobility: Minimal assistance Functional Mobility Skilled Clinical Factors: Completed functional mobility around bed to recliner with increased time to complete. HR elevated into 120s, slight SOB, fair safety awareness, requires cues to keep RW close to JELLY. Safety Devices Type of Devices: All fall risk precautions in place;Patient at risk for falls;Nurse notified;Gait belt;Call light within reach;Left in chair;Chair alarm in place Patient Education Education Given To: Patient Education Provided: Role of Therapy;Plan of Care;Precautions;Transfer Training;Energy Conservation;Fall Prevention Strategies;Mobility Training;Orientation Education Method: Verbal Education Outcome: Continued education needed Goals Short Term Goals Time Frame for Short Term Goals: By discharge, pt to demo: Short Term Goal 1: bed mobility tasks to MOD I/IND with Good use of logroll tech and without use ofbedrails. Short Term Goal 2: ADL transfers and functional mobility tasks to SBA/SUP with Good safety/pacing and use of RW as needed. Short Term Goal 3: UB ADLs and LB ADLs to SBA with Good adherence to surgical precautions and use of AE/compensatory strategies as needed. Short Term Goal 4: toileting routine to MinAx1 with Good safety/pacing and use of AD/grab bars/BSC as needed. Short Term Goal 5: Pt/family to be IND with abdominal/surgical precautions, fall prevention strategies, EC/WS tech, compensatory ADL tech, incentive spirometer use, and potential equipment/discharge recommendations, with use of handouts as needed. Patient Goals Patient goals : To go home! AM-PAC - ADL AM-PAC Daily Activity - Inpatient How much help is needed for putting on and taking off regular lower body clothing?: Total How much help is needed for bathing (which includes washing, rinsing, drying)?: A Lot How much help is needed for toileting (which includes using toilet, bedpan, or urinal)?: Total How much help is needed for putting on and taking off regular upper body clothing?: A Little How much help is needed for taking care of personal grooming?: A Little How much help for eating meals?: None AM-PAC Inpatient Daily Activity Raw Score: 14 AM-PAC Inpatient ADL T-Scale Score : 33.39 ADL Inpatient CMS 0-100% Score: 59.67 ADL Inpatient CMS G-Code Modifier : CK RN reports patient is medically stable for therapy treatment this date. Chart reviewed prior to treatment and patient is agreeable for therapy. All lines intact and patient positioned comfortably at end of treatment. All patient needs addressed prior to ending therapy session. Therapy Time Individual Concurrent Group Co-treatment Time In 1253 Time Out 1320 Minutes 27 AXEL Bustamante * Kemar Powers DO - 09/24/2024 12:02 PM EST Images from the original note were not included. [facility] Office: [phone] Balbir Henderson DO, Warren Sierra DO, Kemar Powers DO, Sean Martinez DO, Kaveh Hurtado MD, Patsy Parekh MD, Edwardo Mckeon MD, Rosalind Randolph MD, Samy Vicente MD, Steve Begum MD, Luis M Kapoor MD, Stella Aleman DO, Ranjit Christian MD, Kayden Lozada MD, Vasiliy Henderson DO, Marianne Gutierrez MD, Og Spencer DO, Myra Maldonado MD, Lydia Lemus MD, Kathy Pacheco MD, Gus Stanley MD, Anjel Meeks MD, Vega Comer MD, Bindu Garcia MD, Tangela Forman MD, Enoch Joyce MD, Alfa Bullard MD, Jeremias Enciso DO, Sesar Dumont MD, Stella Kelly MD, Andrew Kelly MD, Zoila Archibald, GE, Zandra Kay CNP, Jeremias Whiteside CNP, Marium Muniz, SWAPNA, Lashon Li CNP, Za Soares CNP, Marilynn Crocker COMMITTEE MEMBER, Elvie Marcus, COMMITTEE MEMBER, Janet León, PA-C, Denise Maddox, PA-C, Kacy Reynolds, COMMITTEE MEMBER, Alessandro Peralta, COMMITTEE MEMBER, Kandi Mejia CNP, Laly Rolle, COMMITTEE MEMBER, Meme Caldera, COMMITTEE MEMBER, Amanda French, COMMITTEE MEMBER, Em Chávez, COMMITTEE MEMBER [facility] IN-PATIENT SERVICE [facility] Progress Note 09/24/2024 4:05 PM Name: Lilliam Bajwa Acct: [id number] Room: [facility]/1025-01 Day: 2 Admit Date: 09/22/2024 10:56 AM PCP: Jeremias Lopez MD Code Status: Full Code Subjective: C/C: Diverticulosis Interval History Status: improved. Patient is up to chair, denies any complaints of chest pain, shortness of breath, nausea vomiting, fevers or chills. Tolerating clear liquid diet Brief History: Per previous documentation Patient presents for scheduled open sigmoid resection. She has a past medical history significant for persistent atrial fibrillation, hypertension, pulmonary fibrosis, CLARISSE, COPD, SBO status post colostomy. We are consulted for medical management. Review of Systems: Constitutional: negative for chills, fevers, sweats Respiratory: negative for cough, dyspnea on exertion, shortness of breath, wheezing Cardiovascular: negative for chest pain, chest pressure/discomfort, lower extremity edema, palpitations Gastrointestinal: negative for abdominal pain, constipation, diarrhea, nausea, vomiting Neurological: negative for dizziness, headache Medications: Allergies: No Known Allergies Current Meds: Scheduled Meds: albuterol sulfate HFA 2 puff Inhalation 4x Daily RT potassium phosphate IVPB (PERIPHERAL LINE) 30 mmol IntraVENous Once potassium chloride 20 mEq Oral BID [Held by provider] apixaban 5 mg Oral BID escitalopram 20 mg Oral Daily levothyroxine 88 mcg Oral Daily sodium chloride flush 10 mL IntraVENous 2 times per day enoxaparin 40 mg SubCUTAneous Daily acetaminophen 1,000 mg Oral 3 times per day methocarbamol 750 mg Oral Q8H budesonide-formoterol 2 puff Inhalation BID RT tiotropium 2 puff Inhalation Daily RT metoprolol succinate 25 mg Oral Daily Continuous Infusions: sodium chloride 50 mL/hr at 09/24/24 1301 sodium chloride PRN Meds: albuterol sulfate HFA, sodium chloride flush, sodium chloride, magnesium sulfate, ondansetron OR ondansetron, oxyCODONE, HYDROmorphone, clonazePAM, metoprolol Data: Past Medical History: has a past medical history of Bowel obstruction (HCC), Chronic hypoxic respiratory failure, on home oxygen therapy, Colostomy in place (HCC), Colovaginal fistula, COPD without exacerbation (HCC), Hypothyroidism, Longstanding persistent atrial fibrillation (HCC), On home oxygentherapy, Primary hypertension, Pulmonary fibrosis (HCC), and Sleep apnea. Social History: reports that she has quit smoking. Her smoking use included cigarettes. She has never used smokeless tobacco. She reports current alcohol use. She reports that she does not use drugs. Family History: Family History Problem Relation Age of Onset Lung Cancer Mother COPD Father Vitals: BP 110/78 Pulse 100 Temp 98.1 F (36.7 C) (Oral) Resp 20 Ht 1.549 m (5' 0.98 ) Wt 53 kg (116 lb 12.8 oz) SpO2 91% BMI 22.08 kg/m Temp (24hrs), Av F (36.7 C), Min:97.7 F (36.5 C), Max:98.2 F (36.8 C) Recent Labs 09/22/24 19009/23/24 1145 09/23/24 1625 POCGLU 141* 122* 113* I/O (24Hr): Intake/Output Summary (Last 24 hours) at 09/24/2024 1605 Last data filed at 09/24/2024 1301 Gross per 24 hour Intake 1617.58 ml Output 1180 ml Net 437.58 ml Labs: Hematology: Recent Labs 09/23/24 0458 09/24/24 0917 WBC 19.4* 13.6* RBC 3.53* 2.99* HGB 10.4* 8.9* HCT 30.1* 25.6* MCV 85.3 85.6 MCH 29.5 29.8 MCHC 34.6 34.8 RDW 14.2 14.2 PLT 276 237 MPV 9.3 9.5 Chemistry: Recent Labs 09/22/24 1218 09/23/24 0458 09/24/24 0442 09/24/24 0917 NA 132* 137 -- 135* K 3.7 3.3* -- 3.3* CL 97* 107 -- 102 CO2 23 19* -- 25 GLUCOSE 101 122* -- 89 BUN 4* 4* -- 3* CREATININE 0.5 0.6 -- 0.4* MG -- 1.5* -- 2.0 ANIONGAP 12 10 -- 9 LABGLOM >90 >90 -- >90 CALCIUM 9.6 8.0* -- 8.3* CAION -- 1.10* 1.15 -- PHOS -- 2.9 -- 0.8* Recent Labs 09/22/24 19009/23/24 1145 09/23/24 1625 POCGLU 141* 122* 113* ABG:No results found for: POCPH , PHART , PH , POCPCO2 , RSE0CIQ , PCO2 , POCPO2 , PO2ART , PO2 , POCHCO3 , WDJ2LXV , HCO3 , NBEA , PBEA , BEART , BE , THGBART , THB , PDU9LEL , EUPP1PTL , M1TAOEQO , O2SAT , FIO2 No results found for: SPECIAL No results found for: CULTURE Radiology: No results found. Physical Examination: General appearance: alert, cooperative and no distress Mental Status: oriented to person, place and time and normal affect Lungs: clear to auscultation bilaterally, normal effort Heart: regular rate and rhythm, no murmur Abdomen: soft, nontender, nondistended, normal bowel sounds, no masses, hepatomegaly, splenomegaly Extremities: no edema, redness, tenderness in the calves Skin: no gross lesions, rashes, induration Assessment: Hospital Problems Last Modified POA * (Principal) Diverticulitis of colon 09/22/2024 Yes COPD without exacerbation (HCC) 09/22/2024 Yes Chronic hypoxic respiratory failure, on home oxygen therapy 09/22/2024 Yes Primary hypertension 09/22/2024 Yes Longstanding persistent atrial fibrillation (HCC) 09/22/2024 Yes Hypothyroidism 09/22/2024 Yes Secondary hypercoagulable state (HCC) 09/22/2024 Yes Hyponatremia 09/22/[address] ([facility]) 09/24/2024 Yes Plan: Dietary advancement per surgery, clear liquid diet with clear liquid supplements Oxygen and aerosols as needed Trend labs, correct electrolytes, electrolyte replacement currently in progress Monitor and control blood pressure Colostomy care per surgery Activity as tolerated, PT and OT Incentive spirometry See orders for detail Kemar Powers DO 09/24/2024 4:05 PM * Meme Duffy RN - 09/24/2024 7:44 AM EST Infusion verify completed at 0745 in amt of 644.5 mL was not completed by prior care teams. * Za Mason DO - 09/24/2024 6:31 AM EST General Surgery: Daily Progress Note PATIENT NAME: Lilliam Bajwa TODAY'S DATE: 09/24/2024, 6:31 AM SUBJECTIVE: Pt seen and examined at bedside. No acute overnight events. Afebrile, continues to be tachycardic. Worked with PT/OT yesterday. Voiding well, ambulating to bathroom with assistance. No output yet from ostomy. DAILY drain with dark serosang output 230cc in last 24 hours. Continues to have abd pain, feels tight and bloated. Some nausea but without emesis. OBJECTIVE: VITALS: BP (!) 123/90 Pulse (!) 117 Temp 97.8 F (36.6 C) (Oral) Resp 18 Ht 1.549 m (5' 0.98 ) Wt 53 kg (116 lb 12.8 oz) SpO2 90% BMI 22.08 kg/m INTAKE/OUTPUT: Intake/Output Summary (Last 24 hours) at 09/24/2024 0631 Last data filed at 09/24/2024 0458 Gross per 24 hour Intake 480 ml Output 1580 ml Net -1100 ml PHYSICAL EXAM: General Appearance: awake, alert, oriented, in no acute distress HEENT: Normocephalic, atraumatic, mucus membranes moist Heart: Regular rate and rhythm Lungs: normal effort with symmetric rise and fall of chest wall Abdomen: Soft, mildly distended, tender to palpation around incisions. Ostomy is pink and healthy Incision: midline incision clean, dry and intact with karen; prior ostomy site clean and dry withpacking in between karen Extremities: No cyanosis, pitting edema, rashes noted. Skin: Skin color, texture, turgor normal. No rashes or lesions. Data: CBC: Recent Labs 09/23/24 0458 WBC 19.4* HGB 10.4* PLT 276 Chemistry: Recent Labs 09/22/24 1218 09/23/24 0458 NA 132* 137 K 3.7 3.3* CL 97* 107 CO2 23 19* GLUCOSE 101 122* BUN 4* 4* CREATININE 0.5 0.6 MG -- 1.5* ANIONGAP 12 10 LABGLOM >90 >90 CALCIUM 9.6 8.0* CAION -- 1.10* PHOS -- 2.9 Hepatic: No results for input(s): AST , ALT , ALKPHOS , BILITOT , BILIDIR in the last 72 hours. Invalid input(s): ALB Coagulation: No results for input(s): APTT , INR in the last 72 hours. Invalid input(s): PROT Radiology Review: No results found. ASSESSMENT: Active Hospital Problems Diagnosis Date Noted Diverticulitis of colon [K57.32] 09/22/2024 COPD without exacerbation (HCC) [J44.9] 06/07/2024 Longstanding persistent atrial fibrillation (HCC) [I48.11] 06/07/2024 Secondary hypercoagulable state (HCC) [D68.69] 06/07/2024 Primary hypertension [I10] 06/07/2024 Hypothyroidism [E03.9] 06/07/2024 Hyponatremia [E87.1] 06/07/2024 Chronic hypoxic respiratory failure, on home oxygen therapy [J96.11, Z99.81] 06/07/2024 69 y.o. female postop day 2 status post open sigmoid resection, takedown of loop colostomy and creation of new descending colostomy Plan: Continue clear liquids for now with intermittent nausea and bloating Add clear liquid ensure twice/day Pain control: tylenol, robaxin, oxycodone; dilaudid prn NS at 50cc/hr until having adequate PO intake Monitor for bowel function via ostomy F/u AM labs Replace electrolytes prn Monitor tachycardia Monitor drain output Appreciate medicine assistance with medical mgmt OOB, encourage ambulation/activity w/ PT/OT Incentive spirometer at least 10 times per hour while awake Wound care: daily AM packing changes to old colostomy site with 1/2 in iodoform in between karen,cover with fluff/abd; daily or prn dressing change to midline incision with fluff/abd. Cover with paper tape Restart home meds Continue to hold Eliquis for now Lovenox daily Dispo: continue current care in stepdown, await return of bowel function, pain control, monitor tachycardia * Dorothea Cleary, PT - 09/23/2024 4:26 PM EST Physical Therapy Facility/Department: [facility] Physical Therapy Initial Assessment Name: Lilliam Bajwa : 1955 Date of Service: 09/23/2024 Per H&P: 69 y.o. female with known COPD dependent on O2 @2-3 L/nc, HTN, hypothyroid, known colovaginal fistula with colostomy , and persistent A Fib. Patient returns for a scheduled OPEN SIGMOID RESECTION by Za Mason DO for Diverticulitis. She is S/p Colonoscopy from colostomy and rectum ON 07/18/24(results below) The patient drank prep Her stool is watery but not clear Patient used a small amount of the enema in the rectum with minimal results. Patient stated she used a suppository twice in the past weeks in rectum with minimal results as well. Patient used her Advair and Spriva but not nebulizer .Denies new health changes, fever, chills, wheezing, cough, increased SOB, chest pain, open sores or wounds. Date of Procedure: 09/22/2024 Pre-Op Diagnosis Codes: * Diverticulitis [K57.92] Post-Op Diagnosis: Same Procedures: Open sigmoid resection Takedown of rectovaginal fistula Takedown of transverse loop colostomy Mobilization of splenic flexure Creation of new descending colostomy Surgeon(s): Za Mason DO Palmer, Robert, MD Conference Manager: Back Office Medical Assistant: Aj Drew Control Room Tender: Miguel Plasencia RN Anesthesia: General Estimated Blood Loss (mL): less than 100 Complications: None BROOKE Lucio reports patient is medically stable for therapy treatment this date. Chart reviewed prior to treatment and patient is agreeable for therapy. All lines intact and patient positioned comfortably at end of treatment. All patient needs addressed prior to ending therapy session. Discharge Recommendations: Patient would benefit from continued therapy after discharge Continue to assess pt functional performance to determine safe and appropriate discharge recommendation. Patient Diagnosis(es): The encounter diagnosis was Diverticulitis. Past Medical History: has a past medical history of Bowel obstruction (HCC), Chronic hypoxic respiratory failure, on home oxygen therapy, Colostomy in place (HCC), Colovaginal fistula, COPD without exacerbation (HCC), Hypothyroidism, Longstanding persistent atrial fibrillation (HCC), On home oxygentherapy, Primary hypertension, Pulmonary fibrosis (HCC), and Sleep apnea. Past Surgical History: has a past surgical history that includes section, low transverse; Hysterectomy; bronchoscopy; Breast biopsy; Cardiac catheterization; laparotomy (N/A, 06/08/2024); Colonoscopy (N/A, 07/18/2024); other surgical history (Right); Foot surgery (Right); and Sigmoid Colectomy (N/A, 09/22/2024). Assessment Body Structures, Functions, Activity Limitations Requiring Skilled Therapeutic Intervention: Decreased functional mobility ;Decreased tolerance to work activity;Decreased balance;Decreased safe awareness;Decreased strength;Decreased endurance;Increased pain Assessment: 69 y/o female referred to PT. Pain and endurance a barrier this date. Therapist educated patient on abd precautions and reviewed log roll technique. Patient would benefit from continued education on log roll technique. Patient demonstrating functional mobility with min A using RW. Extratime to complete task with rest breaks due to abd pain. Patient presenting with generalized weakness; decreased activity tolerance; increased pain and requires increased assist with functional mobility. Patient is a increased fall risk; functioning below baseline and would benefit from continued PT. Therapy Prognosis: Good Decision Making: Medium Complexity Requires PT Follow-Up: Yes Activity Tolerance Activity Tolerance: Patient limited by pain;Patient limited by endurance;Patient limited by fatigue Plan Physical Therapy Plan General Plan: 1 time a day 7 days a week Current Treatment Recommendations: Strengthening, Balance training, Functional mobility training, Transfer training, Gait training, Stair training, Home exercise program, Safety education & training, Patient/Caregiver education & training, Therapeutic activities Safety Devices Type of Devices: All fall risk precautions in place, Bed alarm in place, Left in bed, Gait belt, Nurse notified, Call light within reach Restraints Restraints Initially in Place: No Restrictions Restrictions/Precautions Restrictions/Precautions: Surgical Protocols, Fall Risk, General Precautions Activity Level: Up with Assist, Up as Tolerated Required Braces or Orthoses?: No Position Activity Restriction Other Position/Activity Restrictions: Up to chair, telemetry, L hand IV, R hand IV, Thomason catheter,new colostomy, DAILY drain, s/p abd sx Subjective General Patient assessed for rehabilitation services?: Yes Family/Caregiver Present: Yes Follows Commands: Within Functional Limits Subjective Subjective: Patient supine in bed with HOB elevated on therapist arrival. RN okayed patient for PT.Patient agreeable. Social/Functional History Social/Functional History Lives With: Spouse Type of Home: House Home Layout: One level Home Access: Ramped entrance Bathroom Shower/Tub: Tub/Shower unit Bathroom Toilet: Standard Bathroom Equipment: Grab bars in shower Home Equipment: Oxygen (Nebulizer; 2L O2 at basline 24/7) Has the patient had two or more falls in the past year or any fall with injury in the past year?: Yes ( I've tripped over my oxygen tubing a couple of times ; pt also reporting falling the day beforethanksgiving when carrying a gallon bucket with a turkey inside) Prior Level of Assist for ADLs: Independent Prior Level of Assist for Homemaking: Independent Prior Level of Assist for Ambulation: Independent household ambulator, with or without device, Independent community ambulator, with or without device (Pt endorses furniture walking at home) Prior Level of Assist for Transfers: Independent Active Wire Temperer: 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 & Hobbies: Watching tv, 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; 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; 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, spending time on the computer Vision/Hearing Vision Vision: Impaired Vision Exceptions: Wears glasses at all times Hearing Hearing: Within functional limits Cognition Orientation Overall Orientation Status: Within Functional Limits Cognition Overall Cognitive Status: Exceptions Arousal/Alertness: Appears intact Following Commands: Follows one step commands with repetition Attention Span: Appears intact Memory: Appears intact Safety Judgement: Decreased awareness of need for safety;Decreased awareness of need for assistance Problem Solving: Decreased awareness of errors;Assistance required to implement solutions;Assistance required to correct errors made Insights: Decreased awareness of deficits Initiation: Does not require cues Sequencing: Requires cues for some Objective Temp: 98.2 F (36.8 C) Pulse: (!) 115 Heart Rate Source: Monitor Respirations: 17 SpO2: 92 % O2 Device: Nasal cannula BP: 103/75 MAP (Calculated): 84 BP Location: Right upper arm Patient Position: Supine Observation/Palpation Posture: Fair Observation: 91% SPO2 on supplemental O2; 7/10 abdominal area after coughing; Edema: None Gross Assessment AROM: Within functional limits Strength: Generally decreased, functional AROM RLE (degrees) RLE AROM: WFL AROM LLE (degrees) LLE AROM : WFL Bed mobility Supine to Sit: Minimal assistance (assist with trunk) Sit to Supine: Minimal assistance (assist with LE) Scooting: Maximal assistance;2 Person assistance (max A x2 to scoot to HOB) Comments:HOB elevated, Education on log roll technique (patient would benefit from continued education on log roll technique); Increased cues for sequencing during supine<>sit with patient grimacing due to abd pain. No c/o dizziness. Transfers Sit to Stand: Minimal Assistance Stand to Sit: Minimal Assistance Bed to Chair: Minimal assistance Comments: No c/o dizziness, Education on sequencing; VC for hand placement. Extra time educating patient on importance of daily OOB activity. Patient verbalized understanding. Ambulation WB Status: as tolerated Ambulation Surface: Level tile Device: Rolling Walker Other Apparatus: O2 Assistance: Minimal assistance Quality of Gait: VC to keep AD in close proximity. Gait Deviations: Slow Marielos Distance: 15'x2 (to/from bathroom) Comments: c/o abd pain intermittently; reports /10 (RN notified); assist with O2 line management. Education on energy conservation techniques. Circulation/Endurance Exercises: ankle pumps x10 Postural Correction Exercises: VC for upright posture Breathing Techniques: Education on benefits of compliance with incentive spirometer. Edu provided on complications resulting from immobility and decreased participation such as increased risk for blood clots, pneumonia, constipation, muscle atrophy, and decreased independence. Pt verbalized good understanding. AM-PAC - Mobility AM-[facility] Basic Mobility - Inpatient How much help is needed turning from your back to your side while in a flat bed without using bedrails?: A Little How much help is needed moving from lying on your back to sitting on the side of a flat bed withoutusing bedrails?: A Little How much help is needed moving to and from a bed to a chair?: A Little How much help is needed standing up from a chair using your arms?: A Little How much help is needed walking in hospital room?: A Little How much help is needed climbing 3-5 steps with a railing?: A Lot AM-[facility] Inpatient Mobility Raw Score : 17 AM-[facility] Inpatient T-Scale Score : 42.13 Mobility Inpatient CMS 0-100% Score: 50.57 Mobility Inpatient CMS G-Code Modifier : CK Goals Short Term Goals Time Frame for Short Term Goals: 12 visits Short Term Goal 1: Patient will demonstrate indep with bed mobility with use of log roll technique Short Term Goal 2: Patient will verbalize and demonstrate 100% follow through of abd precautions Short Term Goal 3: Patient will demonstrate functional transfers using AD with 100% follow through of abd precautions with MO Short Term Goal 4: Patient will ambulate using AD >150' with MO Patient Goals Patient Goals : Return to PLOF Education Patient Education Education Given To: Patient Education Provided: Role of Therapy;Plan of Care;Precautions Verbal edu provided regarding fall prevention in the areas of community safety, transportation, proper footwear and clothing, reducing risk of falls, environmental modifications, importance of exercise, consequences of falling, plan if a fall occurs ( rest and wait vs up and about ). Education Method: Verbal Barriers to Learning: None Education Outcome: Verbalized understanding Therapy Time Individual Concurrent Group Co-treatment Time In 1556 Time Out 1624 Minutes 28 + 10 = 38 minutes Additional 10 minutes for chart review. Treatment Time: 23 minutes Dorothea Cleary PT * Eliza Zandragoran Mcdowell APRN - COMMITTEE MEMBER - 09/23/2024 9:21 AM EST Images from the original note were not included. [facility] Office: [phone] Balbir Henderson DO, Warren Sierra DO, Kemar Powers DO, Sean Martinez DO, Kaveh Hurtado MD, Ptasy Parekh MD, Edwardo Mckeon MD, Rosalind Randolph MD, Samy Vicente MD, Steve Begum MD, Luis M Kapoor MD, Stella Aleman DO, Ranjit Christian MD, Kayden Lozada MD, Vasiliy Henderson DO, Marianne Gutierrez MD, Og Spencer DO, Myra Maldonado MD, Lydia Lemus MD, Kathy Pacheco MD, Gus Stanley MD, Anjel Meeks MD, Vega Comer MD, Bindu Garcia MD, Tangela Forman MD, Enoch Joyce MD, Alfa Bullard MD, Jeremias Enciso DO, Sesar Dumont MD, Stella Kelly MD, Andrew Kelly MD, Zoila Archibald, GE, Zandra Kay CNP, Jeremias Whiteside, GE, Marium Muniz DNP, Lashon Li, GE, Za Soares CNP, Marilynn Crocker CNP, Elvie Marcus CNP, Janet León, MADHAVIC, Denise Maddox, HERMILO-C, Kacy Reynolds, GE, Alessandro Peralta, GE, Kandi Mejia, GE, Laly Rolle, GE, Meme Caldera CNP, Amanda French CNP, Em Chávez, GE [facility] IN-PATIENT SERVICE [facility] Progress Note 09/23/2024 9:21 AM Name: Lilliam Bajwa Acct: [id number] Room: [address] [place] [address] Day: 1 Admit Date: 09/22/2024 10:56 AM PCP: Jeremias Lopez MD Code Status: Full Code Subjective: C/C: Diverticulitis Interval History Status: improved. Replacing electrolytes Fluid bolus for tachycardia Added Parameters to BB Brief History: Per previous documentation Patient presents for scheduled open sigmoid resection. She has a past medical history significant for persistent atrial fibrillation, hypertension, pulmonary fibrosis, CLARISSE, COPD, SBO status post colostomy. We are consulted for medical management. Review of Systems: Review of Systems Constitutional: Positive for appetite change (tolerating small amts of CLD). Gastrointestinal: Positive for abdominal pain. Skin: Positive for wound. All other systems reviewed and are negative. Medications: Allergies: No Known Allergies Current Meds: Scheduled Meds: magnesium sulfate 2,000 mg IntraVENous Once sodium chloride 250 mL IntraVENous Once escitalopram 20 mg Oral Daily levothyroxine 88 mcg Oral Daily sodium chloride flush 10 mL IntraVENous 2 times per day enoxaparin 40 mg SubCUTAneous Daily ceFAZolin 2,000 mg IntraVENous q8h metroNIDAZOLE 500 mg IntraVENous Q8H acetaminophen 1,000 mg Oral 3 times per day methocarbamol 750 mg Oral Q8H albuterol sulfate HFA 2 puff Inhalation BID RT budesonide-formoterol 2 puff Inhalation BID RT tiotropium 2 puff Inhalation Daily RT metoprolol succinate 25 mg Oral Daily Continuous Infusions: sodium chloride PRN Meds: albuterol sulfate HFA, sodium chloride flush, sodium chloride, magnesium sulfate, ondansetron OR ondansetron, oxyCODONE, HYDROmorphone, clonazePAM, metoprolol Data: Past Medical History: has a past medical history of Bowel obstruction (HCC), Chronic hypoxic respiratory failure, on home oxygen therapy, Colostomy in place (HCC), Colovaginal fistula, COPD without exacerbation (HCC), Hypothyroidism, Longstanding persistent atrial fibrillation (HCC), On home oxygentherapy, Primary hypertension, Pulmonary fibrosis (HCC), and Sleep apnea. Social History: reports that she has quit smoking. Her smoking use included cigarettes. She has never used smokeless tobacco. She reports current alcohol use. She reports that she does not use drugs. Family History: Family History Problem Relation Age of Onset Lung Cancer Mother COPD Father Vitals: BP 93/67 Pulse (!) 116 Temp 99 F (37.2 C) (Oral) Resp 18 Ht 1.549 m (5' 0.98 ) Wt 53.4 kg(117 lb 11.2 oz) SpO2 90% BMI 22.25 kg/m Temp (24hrs), Av.3 F (36.8 C), Min:97.2 F (36.2 C), Max:99.1 F (37.3 C) Recent Labs 09/22/24 1902 POCGLU 141* I/O (24Hr): Intake/Output Summary (Last 24 hours) at 09/23/2024 0921 Last data filed at 09/23/2024 0616 Gross per 24 hour Intake 3000 ml Output 1435 ml Net 1565 ml Labs: Hematology: Recent Labs 09/23/24 0458 WBC 19.4* RBC 3.53* HGB 10.4* HCT 30.1* MCV 85.3 MCH 29.5 MCHC 34.6 RDW 14.2 PLT 276 MPV 9.3 Chemistry: Recent Labs 09/22/24 1218 09/23/24 0458 NA 132* 137 K 3.7 3.3* CL 97* 107 CO2 23 19* GLUCOSE 101 122* BUN 4* 4* CREATININE 0.5 0.6 MG -- 1.5* ANIONGAP 12 10 LABGLOM >90 >90 CALCIUM 9.6 8.0* CAION -- 1.10* PHOS -- 2.9 Recent Labs 09/22/241901 POCGLU 141* ABG:No results found for: POCPH , PHART , PH , POCPCO2 , FED2NDT , PCO2 , POCPO2 , PO2ART , PO2 , POCHCO3 , RTF0TSZ , HCO3 , NBEA , PBEA , BEART , BE , THGBART , THB , FHU3XHD , UHHB7CWS , C0STNPIZ , O2SAT , FIO2 No results found for: SPECIAL No results found for: CULTURE Radiology: No results found. Physical Examination: Physical Exam Vitals and nursing note reviewed. Constitutional: Appearance: Normal appearance. HENT: Mouth/Throat: Mouth: Mucous membranes are dry. Eyes: Conjunctiva/sclera: Conjunctivae normal. Cardiovascular: Rate and Rhythm: Normal rate and regular rhythm. Pulses: Normal pulses. Heart sounds: Normal heart sounds. Pulmonary: Effort: Pulmonary effort is normal. Breath sounds: Normal breath sounds. Abdominal: Palpations: Abdomen is soft. Tenderness: There is abdominal tenderness. Musculoskeletal: General: Normal range of motion. Skin: General: Skin is warm. Capillary Refill: Capillary refill takes less than 2 seconds. Comments: some bloody shadowing on her abdominal dressing and in her colostomy bag Neurological: Mental Status: She is alert and oriented to person, place, and time. Psychiatric: Mood and Affect: Mood normal. Assessment: Hospital Problems Last Modified POA * (Principal) Diverticulitis of colon 09/22/2024 Yes COPD without exacerbation (HCC) 09/22/2024 Yes Chronic hypoxic respiratory failure, on home oxygen therapy 09/22/2024 Yes Primary hypertension 09/22/2024 Yes Longstanding persistent atrial fibrillation (HCC) 09/22/2024 Yes Hypothyroidism 09/22/2024 Yes Secondary hypercoagulable state (HCC) 09/22/2024 Yes Hyponatremia 09/22/2024 Yes Plan: Diverticulitis status post colostomy Routine postoperative management per primary Fluid bolus for hypotension and tachycardia Chronic hypoxic respiratory failure in the setting of COPD not in acute exacerbation Chronically on 2 to 3 L/min nasal cannula, at baseline monitor and maintain SpO2 greater than 88% DuoNebs every 4 hours as needed Resume Spiriva and Advair as per home regimen Persistent atrial fibrillation in a secondary hypercoagulable state Holding anticoagulation until cleared per primary services Resume Toprol-XL; add parameters Chronic hyponatremia Started on gentle IV hydration overnight Sodium within normal limits PATSY De Oliveira CNP 09/23/2024 9:21 AM * Janey Sesay, OT - 09/23/2024 9:20 AM EST Occupational Therapy Facility/Department: [facility] Occupational Therapy Initial Assessment Name: Lilliam Bajwa : 1955 Date of Service: 09/23/2024 BROOKE Lucio reports patient is medically stable for therapy treatment this date. Chart reviewed prior to treatment and patient is agreeable for therapy. All lines intact and patient positioned comfortably at end of treatment. All patient needs addressed prior to ending therapy session. Due to recent hospitalization and medical condition, pt would benefit from additional intermittent skilled therapy at time of discharge. Please refer to the AM-PAC score for current functional status. Discharge Recommendations: Patient would benefit from continued therapy after discharge, Continue to assess pending progress OT Equipment Recommendations Equipment Needed: Yes (CTA) Mobility Devices: ADL Assistive Devices ADL Assistive Devices: Transfer Tub Bench;Nuisance Wildlife Trapper;Sock-Aid Hard;Long-handled Shoe Horn;Long-handledSponge Pt is s/p: Date of Procedure: 09/22/2024 Pre-Op Diagnosis Codes: * Diverticulitis [K57.92] Post-Op Diagnosis: Same Procedures: Open sigmoid resection Takedown of rectovaginal fistula Takedown of transverse loop colostomy Mobilization of splenic flexure Creation of new descending colostomy Surgeon(s): Za Mason, Earnest Wasserman MD Patient Diagnosis(es): The encounter diagnosis was Diverticulitis. Past Medical History: has a past medical history of Bowel obstruction (HCC), Chronic hypoxic respiratory failure, on home oxygen therapy, Colostomy in place (HCC), Colovaginal fistula, COPD without exacerbation (HCC), Hypothyroidism, Longstanding persistent atrial fibrillation (HCC), On home oxygentherapy, Primary hypertension, Pulmonary fibrosis (HCC), and Sleep apnea. Past Surgical History: has a past surgical history that includes section, low transverse; Hysterectomy; bronchoscopy; Breast biopsy; Cardiac catheterization; laparotomy (N/A, 06/08/2024); Colonoscopy (N/A, 07/18/2024); other surgical history (Right); and Foot surgery (Right). Assessment Performance deficits / Impairments: Decreased functional mobility ;Decreased ADL status;Decreased safe awareness;Decreased balance;Decreased endurance;Decreased high-level IADLs Assessment: Pt presents with deficits in functional mobility and ADL performance s/p open abdominalsurgery on 09/22/2024. Pt most limited at this time by generalized weakness, surgical pain, decreased functional activity tolerance, decreased balance, and respiratory status. Pt is typically IND with ADLs and mobility without a device at baseline. Pt is currently requiring Sol for all mobility and use of RW, and significant assist with all self care tasks. Skilled OT services are indicated at this time to maximize this pt's safety and IND with self care tasks and to facilitate safe return to PLOF as able. Prognosis: Good Decision Making: Medium Complexity REQUIRES OT FOLLOW-UP: Yes Activity Tolerance Activity Tolerance: Patient limited by fatigue;Patient limited by pain;Treatment limited secondary to medical complications (free text) Activity Tolerance Comments: On 2L O2 via NC, SpO2 following exertion was 88%. Needed cues to engage in pursed lip breathing tech and seated rest break to recover back to 93%. Pt additionally limitedby surgical pain and fatigue. Plan Occupational Therapy Plan Times Per Week: 5-6x/week 1-2x/day as tolerated Specific Instructions for Next Treatment: Longhandled AE training Current Treatment Recommendations: Strengthening, Balance training, Functional mobility training, Endurance training, Pain management, Equipment evaluation, education, & procurement, Modalities, Positioning, Safety education & training, Self-Care / ADL Restrictions Restrictions/Precautions Restrictions/Precautions: Surgical Protocols, Fall Risk, General Precautions Activity Level: Up with Assist, Up as Tolerated Required Braces or Orthoses?: No Position Activity Restriction Other Position/Activity Restrictions: Up to chair, telemetry, L hand IV, R hand IV, Thomason catheter,new colostomy, DAILY drain, s/p abd sx Subjective General Chart Reviewed: Yes Patient assessed for rehabilitation services?: Yes Family / Caregiver Present: Yes Subjective Subjective: Pt resting in bed upon entry to room, appears uncomfortable. Rating pain in abdomen 7/10 when she coughs, states its less at rest. RN aware. Pt cooperative w/ therapy evaluation. Spouse present partway through eval. Social/Functional History Social/Functional History Lives With: Spouse Type of Home: House Home Layout: One level Home Access: Ramped entrance Bathroom Shower/Tub: Tub/Shower unit Bathroom Toilet: Standard Bathroom Equipment: Grab bars in shower Home Equipment: Oxygen (Nebulizer; 2L O2 at basline 24/7) Has the patient had two or more falls in the past year or any fall with injury in the past year?: Yes ( I've tripped over my oxygen tubing a couple of times ; pt also reporting falling the day beforethanksgiving when carrying a gallon bucket with a turkey inside) Prior Level of Assist for ADLs: Independent Prior Level of Assist for Homemaking: Independent Prior Level of Assist for Ambulation: Independent household ambulator, with or without device, Independent community ambulator, with or without device (Pt endorses furniture walking at home) Prior Level of Assist for Transfers: Independent Active Wire Temperer: 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 Pt c/o mild lightheadedness once standing at EOB, SpO2 checked and was 88%; Bandage over midline incision & new colostomy w/ red output Edema: None Safety Devices Type of Devices: All fall risk precautions in place;Bed alarm in place;Left in bed;Gait belt;Nurse notified;Call light within reach Restraints Restraints Initially in Place: No AROM: Within functional limits (Observed functionally) Strength: Within functional limits (MMT deferred d/t surgical pain in abdomen; observed functionally and appears WFLs) Coordination: Within functional limits Tone: Normal Sensation: Intact (Pt denies any numbness/tingling) ADL Feeding: Setup Feeding Skilled Clinical Factors: Clear liquid diet at time of eval Grooming: Setup;Stand by assistance Grooming Skilled Clinical Factors: Seated position UE Bathing: Setup;Minimal assistance;Moderate assistance LE Bathing: Maximum assistance;Setup UE Dressing: Moderate assistance UE Dressing Skilled Clinical Factors: To tie/adjust hospital gown during session for increased modesty LE Dressing: Maximum assistance Putting On/Taking Off Footwear: Dependent/Total;Maximum assistance Putting On/Taking Off Footwear Skilled Clinical Factors: For sock mgnt during session Toileting: Dependent/Total Toileting Skilled Clinical Factors: Thomason catheter & new colostomy Functional Mobility: Minimal assistance Functional Mobility Skilled Clinical Factors: Pt only tolerated functional mobility at the EOB thissession, required Sol and RW. Pt with strong posterior lean initially, did report feeling lightheaded while standing at EOB. After taking lateral steps towards EOB, SpO2 checked while pt sat at EOB and was 88%. Pt cued to engage in pursed lip breathing tech and recovered SpO2 to 93%. Pt declined sitting up to chair at this time. Additional Comments: Reviewed abdominal precautions with pt and use of logroll tech. Educated pt onimportance of increasing activity levels and sitting up OOB to chair daily post surgery. Pt verbalized understanding of education, however declined sitting up OOB to chair d/t pain this session. Encouraged pt to engage in deep breathing tech. Bed mobility Supine to Sit: Minimal assistance Sit to Supine: Minimal assistance Bed Mobility Comments: Pt educated on use of logroll tech for bed mobility tasks to assist w/ pain control. Pt provided w/ step by step instructions and cues to breathe out during exertion. Pt able to complete sup<>sit transfers w/ Sol, needing assist with trunk to sit up to EOB and then assist with bringing LE's back into bed. Transfers Sit to stand: Minimal assistance Stand to sit: Minimal assistance Transfer Comments: Transfer training completed this session w/ RW, and mod visual/tactile/verbal cues provided for safety. Educated pt on safe transfer tech and general fall prevention strategies, including hand placement on stable surfaces to push to stand vs pulling on RW, importance of fully squaring RW to transfer surface, and backing LE's all the way to surface and reaching back for slow/controlled descent. Pt demo'd a strong posterior lean when initially standing at EOB, needing Sol to correct. Cognition Overall Cognitive Status: Exceptions Arousal/Alertness: Appears intact Following Commands: Follows one step commands with repetition Attention Span: Appears intact Memory: Appears intact Safety Judgement: Decreased awareness of need for safety;Decreased awareness of need for assistance Problem Solving: Decreased awareness of errors;Assistance required to implement solutions;Assistance required to correct errors made Insights: Decreased awareness of deficits Initiation: Does not require cues Sequencing: Requires cues for some Orientation Overall Orientation Status: Within Functional Limits Perception Overall Perceptual Status: WFL Education Given To: Patient;Family Education Provided: Role of Therapy;Plan of Care;Transfer Training;ADL Adaptive Strategies;Family Education;Mobility Training;Fall Prevention Strategies;Equipment;Energy Conservation;Precautions Education Method: Demonstration;Verbal;Teach Back Barriers to Learning: Readiness to Learn Education Outcome: Continued education needed [facility] - ADL AM-[facility] Daily Activity - Inpatient How much help is needed for putting on and taking off regular lower body clothing?: Total How much help is needed for bathing (which includes washing, rinsing, drying)?: A Lot How much help is needed for toileting (which includes using toilet, bedpan, or urinal)?: Total How much help is needed for putting on and taking off regular upper body clothing?: A Lot How much help is needed for taking care of personal grooming?: A Little How much help for eating meals?: None AM-[facility] Inpatient Daily Activity Raw Score: 13 AM-[facility] Inpatient ADL T-Scale Score : 32.03 ADL Inpatient CMS 0-100% Score: 63.03 ADL Inpatient CMS G-Code Modifier : CL Goals Short Term Goals Time Frame for Short Term Goals: By discharge, pt to demo: Short Term Goal 1: bed mobility tasks to MOD I/IND with Good use of logroll tech and without use ofbedrails. Short Term Goal 2: ADL transfers and functional mobility tasks to SBA/SUP with Good safety/pacing and use of RW as needed. Short Term Goal 3: UB ADLs and LB ADLs to SBA with Good adherence to surgical precautions and use of AE/compensatory strategies as needed. Short Term Goal 4: toileting routine to MinAx1 with Good safety/pacing and use of AD/grab bars/BSC as needed. Short Term Goal 5: Pt/family to be IND with abdominal/surgical precautions, fall prevention strategies, EC/WS tech, compensatory ADL tech, incentive spirometer use, and potential equipment/discharge recommendations, with use of handouts as needed. Patient Goals Patient goals : To go home! Therapy Time Individual Concurrent Group Co-treatment Time In 08 (+10 mins for chart review & RN coordination) Time Out 0904 Minutes 50+10=60 Tx Time: 40 minutes Janey Sesay OT * IsabellaZa Jeremias, DO - 09/23/2024 7:29 AM EST General Surgery: Daily Progress Note PATIENT NAME: Lilliam Bajwa TODAY'S DATE: 09/23/2024, 7:29 AM SUBJECTIVE: Pt seen and examined at bedside. No acute overnight events. Afebrile, slightly tachycardic in the low 100s, SBP normal. Complains of abdominal pain and feels very tight. No output from ostomy it. Tolerating clear liquids but did have some mild on and off nausea overnight. Adequate urine output via Thomason. DAILY drain with 30 cc of serosanguineous fluid. OBJECTIVE: VITALS: BP 101/70 Pulse (!) 112 Temp 99 F (37.2 C) (Oral) Resp 18 Ht 1.549 m (5' 0.98 ) Wt 53.4 kg (117 lb 11.2 oz) SpO2 90% BMI 22.25 kg/m INTAKE/OUTPUT: Intake/Output Summary (Last 24 hours) at 09/23/2024 0729 Last data filed at 09/22/2024 1947 Gross per 24 hour Intake 3000 ml Output 1055 ml Net 1945 ml PHYSICAL EXAM: General Appearance: awake, alert, oriented, in no acute distress HEENT: Normocephalic, atraumatic, mucus membranes moist Heart: Regular rate and rhythm Lungs: normal effort with symmetric rise and fall of chest wall Abdomen: Soft, nondistended, tender to palpation around incisions. Ostomy is pink and healthy Incision: Dressing in place without strike through Extremities: No cyanosis, pitting edema, rashes noted. Skin: Skin color, texture, turgor normal. No rashes or lesions. Data: CBC: Recent Labs 09/23/24 0458 WBC 19.4* HGB 10.4* PLT 276 Chemistry: Recent Labs 09/22/24 1218 09/23/24 0458 NA 132* 137 K 3.7 3.3* CL 97* 107 CO2 23 19* GLUCOSE 101 122* BUN 4* 4* CREATININE 0.5 0.6 MG -- 1.5* ANIONGAP 12 10 LABGLOM >90 >90 CALCIUM 9.6 8.0* PHOS -- 2.9 Hepatic: No results for input(s): AST , ALT , ALKPHOS , BILITOT , BILIDIR in the last 72 hours. Invalid input(s): ALB Coagulation: No results for input(s): APTT , INR in the last 72 hours. Invalid input(s): PROT Radiology Review: No results found. ASSESSMENT: Active Hospital Problems Diagnosis Date Noted Diverticulitis of colon [K57.32] 09/22/2024 COPD without exacerbation (HCC) [J44.9] 06/07/2024 Longstanding persistent atrial fibrillation (HCC) [I48.11] 06/07/2024 Secondary hypercoagulable state (HCC) [D68.69] 06/07/2024 Primary hypertension [I10] 06/07/2024 Hypothyroidism [E03.9] 06/07/2024 Hyponatremia [E87.1] 06/07/2024 Chronic hypoxic respiratory failure, on home oxygen therapy [J96.11, Z99.81] 06/07/2024 69 y.o. female postop day 1 status post open sigmoid resection, takedown of loop colostomy and creation of new descending colostomy Plan: Continue clear liquids - possible advancement to fulls if tolerates clears today without nausea Pain control: tylenol, robaxin, oxycodone; dilaudid prn Dc IVF Monitor for bowel function via ostomy Dc thomason catheter - bladder scan 6 hrs post removal if pt does not spontaneously voids Replace electrolytes prn Monitor tachycardia Monitor drain output Complete abx today Appreciate medicine assistance with medical mgmt OOB, encourage ambulation/activity w/ PT/OT Incentive spirometer at least 10 times per hour while awake Wound care: POD2 dressing change; OK to replace outer dressing per nursing if saturated Restart home meds Lovenox daily Dispo: continue current care in stepdown, await return of bowel function, pain control, monitor [facility]* Discharge Instructions* Carole Kinney DO - 09/29/2024 6:26 AM EST General Surgery Patient Discharge Instructions Operations performed: Open sigmoidectomy, reversal of loop colostomy, creation of end colostomy, JPdrain placement Discharge Date: 09/29/2024 Discharged To: Home with home health WOUND CARE: Daily AM packing changes to old colostomy site with 1/2 in iodoform in between karen, cover with fluff/abd; daily or prn dressing change to midline incision with fluff/abd. Cover with paper tape. Follow surgical drain instructions as attached. Record output daily. BATHING: Ok to shower -No bath tubs, soaks, hot tubs, or swimming until cleared at post-operative office visit. ACTIVITY: DRIVING: No driving or operating heavy machinery while on narcotic pain medication WALKING: Yes LIFTING: Less than 10 pounds for 8 weeks - Avoid heavy lifting, pushing, pulling, and/or strenuous activity or exercise until cleared at post-operative office visit. DIET: Continue regular diet. Discharge Medications: Take Tylenol and Robaxin every 8 hours for pain control. Take Roxicodone as needed for any severe break through pain. Take the antibiotic, Macrobid, until 09/30/2024. SPECIAL INSTRUCTIONS: Call the [facility] at [phone] if you have a fever > 100 F, or if your incision becomes red, tender, or drains more than a small amount of clear fluid. FOLLOW UP: Call the [facility] at [phone] for follow up appointment with Dr. Mason in 10-14 days. The JPdrain will stay in place until then. * Discharge Instr - Diet* Carole Kinney DO - 09/29/2024 6:57 AM EST Good nutrition is important when healing from an illness, injury, or surgery. Follow any nutrition recommendations given to you during your hospital stay. If you were given an oral nutrition supplement while in the hospital, continue to take this supplement at home. You can take it with meals, in-between meals, and/or before bedtime. These supplements can be purchased at most local grocery stores, pharmacies, and chain Socitive-stores. If you have any questions about your diet or nutrition, call the hospital and ask for the dietitian. * Discharge Instr - FRANCESCO* David Poe RN - 09/26/2024 12:58 PM EST Continuity of Care Form Patient Name: Lilliam Bajwa : 1955 Admit date: 09/22/2024 Discharge date: 09/29 Code Status Order: Full Code Advance Directives: Advance Care Flowsheet Documentation Date/Time Healthcare Directive Type of Healthcare Directive Copy in Chart Healthcare Agent Appointed Healthcare Agent's Name Healthcare Agent's Phone Number 09/22/24 1117 No, patient does not have an advance directive for healthcare treatment -- -- -- -- -- Admitting Physician: Za Mason DO PCP: Jeremias Lopez MD Discharging Nurse: BROOKE Chavez Discharging Hospital Unit/Room#: 1025/1025-01 Discharging Unit Emergency Contact: Extended Emergency Contact Information Primary Emergency Contact: Cresencio Bajwa [place] Relation: Spouse Senior Solutions Architect needed? No Past Surgical History: Past Surgical History: Procedure Laterality Date BREAST BIOPSY BRONCHOSCOPY CARDIAC CATHETERIZATION no interventions necessary (per patient) SECTION, LOW TRANSVERSE X2 COLONOSCOPY N/A 07/18/2024 COLONOSCOPY FROM RECTUM AND COLOSTOMY performed by Za Mason DO at [facility] OR FOOT SURGERY Right growth removed from right heel HYSTERECTOMY (CERVIX STATUS UNKNOWN) LAPAROTOMY N/A 06/08/2024 TRANSVERSE LOOP COLOSTOMY performed by Za Mason DO at [facility] OR OTHER SURGICAL HISTORY Right right thumb fusion SIGMOID COLECTOMY N/A 09/22/2024 OPEN SIGMOID RESECTION TAKEDOWN TRANSVERSE LOOPCOLOSTOMY ,CREATION OF DESENDING COLOSTOMY performedby Za Mason DO at [facility] OR Immunization History: Immunization History Administered Date(s) Administered COVID-19, PFIZER PURPLE top, DILUTE for use, (age 12 y+), 30mcg/0.3mL 12/11/2020, 01/03/2021, 08/25/2021 Active Problems: Patient Active Problem List Diagnosis Code 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 COPD without exacerbation ([facility]) J44.9 Chronic hypoxic respiratory failure, on home oxygen therapy J96.11, Z99.81 Primary hypertension I10 Longstanding persistent atrial fibrillation ([facility]) I48.11 Hypothyroidism E03.9 Secondary hypercoagulable state ([facility]) D68.69 [address]atremia E87.[address] ([facility]) Z93.3 Diverticulitis of colon K57.32 Isolation/Infection: Isolation No Isolation Patient Infection Status None to display Nurse Assessment: Last Vital Signs: BP (!) 135/92 Pulse 85 Temp 97.9 F (36.6 C) (Oral) Resp 16 Ht 1.549 m (5'0.98 ) Wt 56.7 kg (125 lb) SpO2 98% BMI 23.63 kg/m Last documented pain score (0-10 scale): Pain Level: 7 Last Weight: Wt Readings from Last 1 Encounters: 09/26/24 56.7 kg (125 lb) Mental Status: oriented and alert IV Access: - None Nursing Mobility/ADLs: Walking Assisted Transfer Assisted Bathing Assisted Dressing Assisted Toileting Assisted Feeding Independent Inspector Returned Materials Assisted Med Delivery whole Wound Care Documentation and Therapy: Incision 09/22/24 Abdomen Medial (Active) Dressing Status Clean;Dry;Intact 09/25/241999 Dressing Change Due 09/26/24 09/25/241999 Incision Cleansed Not Cleansed 09/24/24 194 Dressing/Treatment ABD pad 09/25/241999 Margins Approximated 09/25/241999 Incision Assessment Other (Comment) 09/25/24 0800 Drainage Amount None (dry) 09/25/241999 Drainage Description Serosanguinous 09/24/24 194 Odor None 09/25/241999 Mitali-incision Assessment Intact 09/24/24 194 Number of days: 4 Elimination: Continence: Bowel: ostomy Bladder: Yes Urinary Catheter: None Colostomy/Ileostomy/Ileal Conduit: Yes Colostomy LLQ Loop-Stomal Appliance: 1 piece, Flat Colostomy LLQ Loop-Stoma Assessment: Red Colostomy LLQ Loop-Mucocutaneous Junction: Intact Colostomy LLQ Loop-Peristomal Assessment: Clean, dry & intact Colostomy LLQ Loop-Treatment: Site care, Liquid skin barrier, Barrier ring, Pouch change Colostomy LLQ Loop-Stool Appearance: Soft Colostomy LLQ Loop-Stool Color: Red Colostomy LLQ Loop-Stool Amount: Medium Date of Last BM: 09/29 Intake/Output Summary (Last 24 hours) at 09/26/2024 1256 Last data filed at 09/26/2024 0741 Gross per 24 hour Intake 2071.21 ml Output 1495 ml Net 576.21 ml I/O last 3 completed shifts: In: 3356.3 [P.O.:1440; I.V.:1172.4; IV Piggyback:743.9] Out: 2590 [Urine:2300; Drains:290] Safety Concerns: At Risk for Falls Impairments/Disabilities: None Nutrition Therapy: Current Nutrition Therapy: - Oral Diet: General and Low Fiber Routes of Feeding: Oral Liquids: No Restrictions Daily Fluid Restriction: no Last Modified Barium Swallow with Video (Video Swallowing Test): not done Treatments at the Time of Hospital Discharge: Respiratory Treatments: see mar Oxygen Therapy: is on oxygen at 3 L/min per nasal cannula. Ventilator: - No ventilator support Rehab Therapies: Physical Therapy Weight Bearing Status/Restrictions: No weight bearing restrictions Other Medical Equipment (for information only, NOT a DME order): Other Treatments: Skilled dragger Medication reconciliation Wound care: daily AM packing changes to old colostomy site with 1/2 in iodoform in between karen,cover with fluff/abd; daily or prn dressing change to midline incision with fluff/abd. 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 Ostomy care. DAILY drain care including recording the output. Physician Certification: I certify the above information and transfer of Lilliam Soriar is necessary for the continuing treatment of the diagnosis listed and that she requires Home Care for less 30 days. Update Admission H&P: No change in H&P PHYSICIAN SIGNATURE: * Attachments The following attachments cannot be sent through Care Everywhere. * Surgical Drain Care (Portuguese) [facility] History of Present illness Narrative* Kerrie Lombardo MD - 09/04/2024 1:30 PM EST Patient was most recently seen by me in April 2024. We were consulted for atrial fibrillation management. Subjective : Continues to have class III shortness of breath. Uses oxygen taudy-peg-yuvgm. No orthopnea or PND or lower extremity edema Does not report palpitations chest pressure tightness or heaviness Does not report any bleeding diathesis. Low-dose metoprolol has not made her breathing any worse. Since her last visit with us she has had abdominal surgery in [place], and currently has a? Colostomy bag in place. She says she has further surgery coming up for colostomy reversal. She tolerated theinitial surgery without incident. History so Far : 1. Paroxysmal atrial fibrillation 2. COPD, chronic hypoxemic respiratory failure 3. Shortness of breath 4. Acquired hypothyroidism 5. Mixed hyperlipidemia 6. Emphysema 7. Fall risk 8. Abnormal thyroid function testing 9. CBG2YJ4-HJTt score of 2 10. First-degree AV block 11. 14-day event monitor-predominant rhythm sinus with bouts of atrial fibrillation with rapid ventricular rate, frequently exceeding 150 bpm. Baseline artifact is noted. 12. Echocardiogram May 2024-LVEF 60 to 65%, normal pattern of LV diastolic filling, normal chamber dimensions, normal RV systolic function, no aortic stenosis or regurgitation, mild mitral regurgitation, mild tricuspid regurgitation, RVSP 32 mmHg, no pericardial effusion, aortic root size normal. Left atrial diameter 3.3 cm. 13. Small bowel obstruction, admitted May 2024 to outside facility, discharged June 11, 2024. Also had colovaginal fistula. During hospital admission she had paroxysmal atrial fibrillationtreated with IV diltiazem. On 07/18/2024 she underwent colonoscopy and colostomy. Sigmoid diverticulosis and polyp noted, polyp was removed Objective Wt Readings from Last 3 Encounters: 09/04/24 53.1 kg (117 lb) 06/03/24 57.6 kg (127 lb) 04/28/24 57.6 kg (127 lb) Vitals: 09/04/24 1329 BP: 98/70 BP Location: Right arm Patient Position: Sitting Pulse: 68 Weight: 53.1 kg (117 lb) Height: 1.549 m (5' 1 ) Physical Exam: Patient is wearing oxygen she speaks in short sentences no obvious respiratory distress at rest no pursed lip breathing breath sounds are very distant without crepitations or rhonchi no jugular venous distention carotid bruit or facial asymmetry Abdomen is soft, colostomy bag is in place. Heart sounds are distant regular no murmur rub or gallop abdomen is soft and nontender extremities show no edema ambulates without assistance Meds: Current Outpatient Medications Medication Instructions acetaminophen (TYLENOL) 500 mg, oral, Every 6 hours PRN albuterol 90 mcg/actuation inhaler 2 puffs, Every 4 hours PRN albuterol 2.5 mg, Every 4 hours PRN alendronate (FOSAMAX) 70 mg, Weekly apixaban (ELIQUIS) 5 mg, 2 times daily CALCIUM CARBONATE-VITAMIN D3 ORAL 1 tablet, Daily clonazePAM (KLONOPIN) 0.5 mg, Every 8 hours PRN escitalopram (LEXAPRO) 20 mg, Daily RT levothyroxine (SYNTHROID, LEVOXYL) 88 mcg, Daily loratadine (CLARITIN) 10 mg, Daily PRN magnesium oxide (MAG-OX) 400 mg, oral, Daily metoprolol succinate XL (Toprol-XL) 25 mg 24 hr tablet 1 tablet, Daily before breakfast kkuqeyzh-sni-jvse-FA-vit K-lut (Centrum Silver Women) 8 mg iron-400 mcg-50 mcg tablet 1 tablet, Daily oxygen (O2) gas therapy 1 each, Continuous tiotropium (Spiriva) [address] 1 CAPSULE (18 MCG) INTO INHALER AND INHALE IN THE MORNING traMADol (Ultram) 50 mg tablet 1 tablet, Every 8 hours PRN Allergies Allergen Reactions Wellbutrin [Bupropion Hcl] Itching LABS: May 2024-sodium 137 potassium 3.4, ALT 45 AST 67 Patient Active Problem List Diagnosis Date Noted Mixed hyperlipidemia 09/04/2024 BMI 22.0-22.9, adult 09/04/2024 Shortness of breath 09/04/2024 Other emphysema (Multi) 09/04/2024 Pre-operative clearance 09/04/2024 Former cigarette smoker 04/28/2024 Encounter to discuss test results 04/28/2024 Abnormal EKG 04/28/2024 Lightheadedness 04/28/2024 At high risk for falls 04/28/2024 Oxygen dependent 04/28/2024 Abnormal thyroid function test 04/28/2024 Myalgia 01/22/2024 Panlobular emphysema (Multi) 05/30/2023 Paroxysmal atrial fibrillation (Multi) 03/06/2023 Chronic obstructive pulmonary disease (Multi) 03/06/2023 Acquired hypothyroidism 03/06/2023 Assessment: 1. Paroxysmal atrial fibrillation (Multi) 2. Pulmonary emphysema, unspecified emphysema type (Multi) 3. Shortness of breath 4. Acquired hypothyroidism 5. Mixed hyperlipidemia 6. At high risk for falls 7. Abnormal EKG Follow Up In Cardiology 8. BMI 22.0-22.9, adult 9. Former cigarette smoker 10. Pre-operative clearance 11. Other emphysema (Multi) In general patient is not symptomatic with her atrial fibrillation. In view of her chronic hypoxemic respiratory failure, and advanced COPD, we do not have to many options for antiarrhythmic therapy.I would continue anticoagulation and low-dose beta-[place] which she seems to be tolerating. Her LVsystolic function is normal. She recently tolerated surgical procedure without untoward event. As such, her cardiac risk for dental procedure is probably appropriate as well. Okay to interrupt Eliquis for 48 hours prior to surgery and resume as needed. Patient understands a small glass of of thromboembolic events in the event of PAF without anticoagulation. Hypokalemia was noted during hospital stay, repeat potassium 3.8, would aim to keep potassium around 4.0 or slightly higher. Patient will follow-up regular medical care per primary, and I will see her on an as-needed basis. Thank you for allowing us to participate in Lilliam's care, please do not hesitate to call if further questions arise, Sincerely, Kerrie Lombardo MD [facility] Follow up : prn Provider Attestation - Scribe documentation All medical record entries made by the Scribe were at my direction and personally dictated by me. Ihave reviewed the chart and agree that the record accurately reflects my personal performance of the history, physical exam, discussion and plan. Scribe Attestation By signing my name below, I, Rani Hernández LPN , Scribgerber attest that this documentation has been prepared under the direction and in the presence of Kerrie Lombardo MD. documented in this encounterUK Healthcare Work Phone: 1(824) 269-288412-12-2024 Instructions* Patient Instructions* Rani Cheema LPN - 09/04/2024 1:30 PM EST Lilliam Bajwa is clear for surgery from a cardiac standpoint Can hold eliquis for 2 days prior to surgery. Follow up ordered as needed only Please bring all medicines, vitamins, and herbal supplements with you when you come to the office. Prescriptions will not be filled unless you are compliant with your follow up appointments or have a follow up appointment scheduled as per instruction of your physician. Refills should be requested at the time of your visit. Fall Prevention Education Given documented in this encounterUK Healthcare Work Phone: 1(798) 975-361511-13-2024 Telephone encounter Note* Telephone Encounter - HERMILO Flores - 08/06/2024 2:05 PM EST OARRS reviewed, Rx sent into patient's pharmacy. [place] [id number] Miscellaneous Notes* Telephone Encounter - HERMILO Flores - 08/06/2024 2:05 PM EST OARRS reviewed, Rx sent into patient's pharmacy. documented in this encounterSaint [facility]'s [facility] [id number] Telephone encounter Note* Telephone Encounter - HERMILO Flores - 07/05/2024 9:04 AM EDT [facility]buterol [id number] Miscellaneous Notes* Telephone Encounter - HERMILO Flores - 07/05/2024 9:04 AM EDT Albuterol sent documented in this [facility]10-03-2024 History of Present illness Narrative* Isabella Nicolas NP - 06/26/2024 2:30 PM EDT HPI Follow-up Additional comments: Admitted to [facility] 06/07/24 dx: SBO surgery done-colostomy placed discharged to [facility] 06/11/24 , discharged home 06/19/24 Pt had follow up with surgeon since [facility] stay has upcoming colonoscopy Last edited by Shea Kelly LPN on 06/26/2024 2:34 PM. Subjective Patient ID: Lilliam Bajwa is a 69 y.o. female who presents for Follow-up (Admitted to [facility] 06/07/24 dx: SBO surgery done-colostomy placed discharged to [facility] 06/11/24 , discharged home 06/19/24 /Pt had follow up with surgeon since [facility] stay has upcoming colonoscopy). Taking all meds as directed Has upcoming colonoscopy Eat and drinking well per pt Denies fever,nausea,vomiting Flowsheet Row Patient Outreach from 06/24/2024 in [facility] with Za Jimenez LPN Hospital Information Discharge Date 06/19/24 Discharged To: Home Setting Engagement Admission Date 06/11/24 Medications Discharge medications reviewed and reconciled from hospital? Yes Is the patient having any side effects they believe may be caused by any medication additions or changes? No Does the patient have all medications ordered at discharge? Yes Appointments Does the patient have a primary care provider? Yes Nursing Interventions Verified appointment date/time/provider [ISABELLA NICOLAS APPT 06/26] Has the patient kept scheduled appointments due by today? Yes [DR MASON] Self Management What is the home health agency? NONE Patient Teaching Does the patient have access to their discharge instructions? Yes What is the patient's perception of their health status since discharge? Improving Patient/Caregiver Education Comments SEEN DR MASON FOR SURGEON FOLLOW UP FOR COLOSTOMY. SHE IS DOING WELL CHANGING THE BAG SHE IS CHANGING THE BAGS ON HER OWN. Wrap Up Wrap Up Additional Comments PER PT I AM HANDLING IT WELL. Current Outpatient Medications on File Prior to Visit Medication Sig Dispense Refill acetaminophen (Tylenol) 500 MG tablet Take 500 mg by mouth every 6 (six) hours if needed for mild pain albuterol (2.5 MG/3ML) 0.083% nebulizer solution Take 3 mL (2.5 mg) by nebulization every 4 (four) hours if needed for shortness of breath 75 mL 11 albuterol HFA 90 mcg/act inhaler TAKE 2 PUFFS BY MOUTH EVERY 4 HOURS NEEDED 18 g 2 alendronate (Fosamax) 70 MG tablet Take 1 tablet (70 mg) by mouth every 7 (seven) days Take in the morning with a full glass of water, on an empty stomach, and do not take anything else by mouth or lie down for the next 30 min. 4 tablet 11 apixaban (Eliquis) 5 MG tablet Take 1 tablet (5 mg) by mouth in the morning and 1 tablet (5 mg) before bedtime. 60 tablet 11 Calcium Carb-Cholecalciferol (CALTRATE 600+D3 PO) Take by mouth 2 (two) times a day clonazePAM (KlonoPIN) 0.5 MG tablet Take 1 tablet (0.5 mg) by mouth every 8 (eight) hours if neededfor anxiety 90 tablet 1 escitalopram (Lexapro) 20 MG tablet TAKE 1 TABLET BY MOUTH EVERY DAY 100 tablet 3 fluticasone-salmeterol, sensor, (AirDuo Digihaler) 113-14 MCG/ACT inhaler Inhale 1 puff in the morning and 1 puff before bedtime. Rinse mouth with water after use to reduce aftertaste and incidence of candidiasis. Do not swallow.. levothyroxine (Synthroid, Levoxyl) 88 MCG tablet TAKE 1 TABLET BY MOUTH EVERY DAY 100 tablet 3 Loratadine (Claritin) 10 MG capsule Take by mouth Daily Magnesium Oxide (MAGOX 400 PO) Take by mouth Daily metoprolol succinate XL (Toprol-XL) 25 MG 24 hr tablet TAKE 1 TABLET BY MOUTH EVERY DAY IN THE MORNING 90 tablet 3 tiotropium (Spiriva HandiHaler) [address] 1 capsule (18 mcg) into inhaler andinhale in the morning. 100 capsule 3 [DISCONTINUED] amLODIPine (Norvasc) 5 MG tablet Take 5 mg by mouth Daily [DISCONTINUED] Fluticasone-Salmeterol (Wixela Inhub) 100-50 MCG/ACT aerosol powder Inhale 1 puff inthe morning and 1 puff before bedtime. 1 each 11 [DISCONTINUED] Nirmatrelvir&Ritonavir 300/100 (Paxlovid, 300/100,) 20 x 150 MG & 10 x 100MGtablet therapy pack Take 3 tablets by mouth in the morning and 3 tablets before bedtime. Take as package directs. Disp 1 package. 1 each 0 No current facility-administered medications on file prior to visit. I have reviewed and reconciled the history and medication list with the patient today. Allergies Allergen Reactions Bupropion Itching Social History Tobacco Use Smoking status: Former Average packs/day: 1 pack/day for 50.0 years (50.0 ttl pk-yrs) Types: Cigarettes Start date: 03/22/1974 Smokeless tobacco: Never Family History Problem Relation Name Age of Onset Cancer Mother COPD Father Past Medical History: Diagnosis Date Allergic Anxiety COPD (chronic obstructive pulmonary disease) (CMS/HCC) Depression (CMS/HCC) Disease of thyroid gland (CMS/HCC) History of being hospitalized 06/07/2024 SBO CLARISSE (obstructive sleep apnea) Pulmonary fibrosis (CMS/HCC) Past Surgical History: Procedure Laterality Date BREAST BIOPSY Left BRONCHOSCOPY CARDIAC CATHETERIZATION 2010 SECTION, LOW TRANSVERSE HYSTERECTOMY Visit Vitals Ht 5' 1 BMI 23.43 kg/m Smoking Status Former BSA 1.56 m Review of Systems Constitutional: Negative. HENT: Negative. Eyes: Negative. Respiratory: Negative. Cardiovascular: Negative. Gastrointestinal: Negative. Genitourinary: Negative. Musculoskeletal: Negative. Skin: Negative. Neurological: Negative. Psychiatric/Behavioral: Negative. Hematological: Negative. Endocrine: Negative. Allergic/Immunologic: Negative. Objective Physical Exam Vitals reviewed. Constitutional: Appearance: Normal appearance. HENT: Head: Normocephalic and atraumatic. Right Ear: External ear normal. Left Ear: External ear normal. Nose: Nose normal. Mouth/Throat: Mouth: Mucous membranes are moist. Eyes: Conjunctiva/sclera: Conjunctivae normal. Cardiovascular: Rate and Rhythm: Normal rate and regular rhythm. Heart sounds: Normal heart sounds. Pulmonary: Effort: Pulmonary effort is normal. Breath sounds: Normal breath sounds. Abdominal: General: Bowel sounds are normal. Palpations: Abdomen is soft. Comments: colostomy Musculoskeletal: General: Normal range of motion. Cervical back: Normal range of motion and neck supple. Skin: General: Skin is warm and dry. Neurological: General: No focal deficit present. Mental Status: She is alert and oriented to person, place, and time. Psychiatric: Mood and Affect: Mood normal. Behavior: Behavior normal. Thought Content: Thought content normal. Judgment: Judgment normal. Assessment/Plan 1. Hospital discharge follow-up She is here for a Follow-up from surgery at [facility] for a SBO. She has a new colostomy placed. She has no concerns today. 2. Hx of small bowel obstruction Follow up with GI as scheduled. 3. Colostomy present ([facility]) She denies concerns with the colostomy. 4. 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 documented in this encounterSaint John's Saint [facility] [id number] Evaluation note* Encounter Date Diagnosis Assessment Notes Treatment Notes Treatment Clinical Notes Jul, Very severe chronic obstructive pulmonary disease (ICD-10 - J44.9) Discussed the severity of her lung disease, encouraged her to continue regular use of maintenance inhalers, but most importantly discussed the importance of exercise and rehabilitation. Patient will continue to follow-up with her primary care physician, she can call for follow-up anytime Jul,Recurrent pneumonia (ICD-10 - J18.9) [facility] Other 11-22-2022 Evaluation note* Encounter Date Diagnosis Assessment Notes Treatment Notes Treatment Clinical Notes Jul, Very severe chronic obstructive pulmonary disease (ICD-10 - J44.9) Discussed management of COPD today at length, in addition to aggressive therapy she is on asked herto attempt exercising, walking, or any form of exercise suitable to her to improve her exercise tolerance. Jul,Lung nodules (ICD-10 - R91.8)Discussed findings on recent CT showing resolution of the left upper lobe consolidation with no change in her lung nodule or apical scarring, will continue to monitor for any changes on her lung nodules with a 6 months follow-up scan Jul,pical lung scarring (ICD-10 - J98.4) Jul,History of recent pneumonia (ICD-10 - Z87.01) [facility] Other 08-17-2022 Evaluation note* Encounter Date Diagnosis Assessment Notes Treatment Notes Treatment Clinical Notes Apr, Very severe chronic obstructive pulmonary disease (ICD-10 - J44.9) Apr,Lung nodules (ICD-10 - R91.8)CT chest in 3 months before next visit Apr,History of recent pneumonia (ICD-10 - Z87.01) [facility] Other 04-11-2022 Evaluation note* Encounter Date Diagnosis Assessment Notes Treatment Notes Treatment Clinical Notes Dec, Lung nodules (ICD-10 - R91.8) Dec,pical lung scarring (ICD-10 - J98.4) Dec,hronic obstructive pulmonary disease, unspecified COPD type (ICD-10 - J44.9) Dec,Tobacco abuse (ICD-10 - Z72.0) [facility] Other Evaluation note* Diagnosis Hospital discharge follow-up- Primary Other follow-up examination Hx of small bowel obstruction Colostomy present (CMS/HCC) Disorder involving the immune mechanism, unspecified (CMS/HCC) documented in this encounter [facility] HealthcareEvaluation note* Diagnosis Panlobular emphysema (CMS/HCC) Other emphysema documented in this encounter [facility] HealthcareEvaluation note* Diagnosis Age-related osteoporosis without current pathological fracture (CMS/HCC) documented in this encounter [facility] HealthcareEvaluation note* Diagnosis Paroxysmal atrial fibrillation (Multi) Atrial fibrillation Pulmonary emphysema, unspecified emphysema type (Multi) Shortness of breath Acquired hypothyroidism Unspecified hypothyroidism Mixed hyperlipidemia At high risk for falls Abnormal EKG Nonspecific abnormal electrocardiogram (ECG) (EKG) BMI 22.0-22.9, adult Former cigarette smoker Personal history of tobacco use, presenting hazards to health Pre-operative clearance Unspecified pre-operative examination documented in this encounter [facility] Work Phone: Evaluation note* Diagnosis Paroxysmal atrial fibrillation (Multi) Atrial fibrillation Myalgia Unspecified myalgia and myositis Lightheadedness Dizziness and giddiness documented in this encounter [facility] Work Phone: Evaluation note* Diagnosis Mixed anxiety and depressive disorder Dysthymic disorder documented in this encounter [facility] HealthcareEvaluation note* Diagnosis Pre-op testing Preoperative examination, unspecified Diverticulitis Diverticulitis of colon (without mention of hemorrhage) [facility] Diagnosis Pre-op testing- Primary Preoperative examination, unspecified Pre-op testing Preoperative examination, unspecified Diverticulitis Diverticulitis of colon (without mention of hemorrhage) [facility]* Diagnosis Diverticulitis of colon- Primary Diverticulitis of colon (without mention of hemorrhage) Diverticulitis Diverticulitis of colon (without mention of hemorrhage) Acute postoperative pain Other acute postoperative pain Age-related physical debility Senility without mention of psychosis COPD without exacerbation (HCC) Longstanding persistent atrial fibrillation (HCC) Secondary hypercoagulable state (HCC) Secondary hypercoagulable state Primary hypertension Unspecified essential hypertension Hypothyroidism Unspecified hypothyroidism Hyponatremia Hyposmolality and/or hyponatremia Chronic hypoxic respiratory failure, on home oxygen therapy Colostomy in place (HCC) Colostomy status [facility]* Diagnosis COPD exacerbation (CMS/HCC)- Primary Obstructive chronic bronchitis with exacerbation Colostomy in place (CMS/HCC) Colostomy status History of open sigmoidectomy Acute non-recurrent frontal sinusitis Encounter for screening mammogram for malignant neoplasm of breast Chronic hypoxic respiratory failure, on home oxygen therapy (CMS/HCC) Chronic obstructive pulmonary disease, unspecified COPD type (CMS/HCC) Panlobular emphysema (CMS/HCC) Other emphysema Oxygen dependent Dependence on supplemental oxygen [facility]* Diagnosis Chronic obstructive pulmonary disease, unspecified COPD type (CMS/HCC)- Primary documented [facility]* Diagnosis Age-related osteoporosis without current pathological fracture ([facility]) Chronic obstructive pulmonary disease, unspecified COPD type ([facility]) [facility]* Diagnosis Mixed anxiety and depressive disorder Dysthymic disorder documented [facility]* Diagnosis 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) documented [facility]* Diagnosis Panlobular emphysema (HCC)- Primary Other emphysema documented [facility]* Diagnosis Panlobular emphysema (HCC)- Primary Other emphysema Moderate episode of recurrent major depressive disorder (HCC) Acute exacerbation of chronic obstructive airways disease (HCC) Hypomagnesemia Disorders of magnesium metabolism Rhus dermatitis 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) Colostomy in place (HCC) Colostomy status [facility]* Diagnosis Generalized anxiety disorder Generalized anxiety disorder [facility]* Diagnosis 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) [facility] Narrative - Reported* Type Description Date Medical History copd Medical HistoryhypothyroidMedical HistoryRAMedical Historysleep apneaSurgical Historyhysterectomy abdominalSurgical HistoryC sectionSurgical History lumpectomy, left breastSurgical Historyright thum fusedSurgical Historygrowth removed from right heel.Hospitalization Historybreathing issues, several times 2008-2016Hospitalization HistoryCOPD [facility] Other History general Narrative - Reported* Type Description Date Medical History copd Medical HistoryhypothyroidMedical HistoryRAMedical Historysleep apneaSurgical Historyhysterectomy abdominalSurgical HistoryC sectionSurgical History lumpectomy, left breastSurgical Historyright thum fusedSurgical Historygrowth removed from right heel.Hospitalization Historybreathing issues, several times 2008-2016Hospitalization HistoryCOPDHospitalization HistoryColitis /Pneumonia [facility]20[facility] Other Summary Purpose Family History No Family History Records FoundNo Family History Records FoundNo Family History Records FoundNo Family History Records FoundNo Family History Records FoundNo Family History Records Found Advance Directives Date ActivatedDate InactivatedComments06/07/2024 4:50 PM06/11/2024 8:10 PMDate ActivatedDate ZwfydvstbjjYjyggiwg18/30/2024 8:26 PMDate ActivatedDate FjqavzjqafsOzfglufz83/30/2024 8:26 PM09/22/2024 8:26 PMDate ActivatedDate InactivatedComments06/07/2024 4:50 PM06/11/2024 8:10 PMNameRelationshipHealthcare Agent RelationshipCommunicationRick RohrbacherSpousePrimary Decision Maker* Reason for Referral SpecialtyDiagnoses / ProceduresReferred By ContactReferred To ContactCardiology Diagnoses Paroxysmal atrial fibrillation (Multi) Myalgia Lightheadedness Procedures Transthoracic Echo Complete HI ECHO TTHRC R-T 2D W/WOM-MODE COMPL SPEC&COLR D Kerrie Lombardo MD [address] [address] Referral IDStatusReasonStart DateExpiration DateVisits RequestedVisits [id number] Perform Procedure Additional Source Comments REASON FOR VISIT (unrecogniz ed section and content) ReasonCommentsFollow-upAd[facility] dx: SBO surgery done-colostomy placed discharged [facility] 06/11/24 , discharged home 06/19/24 Pt had follow up with surgeon since hosp stay has upcoming colonoscopyReason CommentsMed RefillReasonOnset DateCommentsMed [id number] Follow-up3 monthsSpecialtyDiagnoses / ProceduresReferred By ContactReferred To ContactCardiology Diagnoses Abnormal EKG Procedures Follow Up In Cardiology Kerrie Lombardo MD [address] [address] Phone: tel: fax: Kerrie Lombardo MD [address] [address] Phone: tel: fax: Referral IDStatusReasonStart DateExpiration DateVisits RequestedVisits [id number] [id number] / Procedures Referred By ContactReferred To ContactCardiology Diagnoses Paroxysmal atrial fibrillation (Multi) Myalgia Lightheadedness Procedures Transthoracic Echo Complete HI ECHO TTHRC R-T 2D W/WOM-MODE COMPL SPEC&COLR D Kerrie Lombardo MD [address] [address] Referral IDStatusReasonStart DateExpiration DateVisits RequestedVisits [id number] Perform Procedure 1ReasonOnset DateCommentsMed Vpirpw1305/22/2024SpecialtyDiagnoses / ProceduresReferred By ContactReferred To Contact Diagnoses Diverticulitis Diverticulitis [K57.92] Procedures HI COLECTOMY PARTIAL W/ANASTOMOSIS OPEN SIGMOID RESECTION Za Mason, DO [address] [place] [address] [facility] [address] [place] [address] Referral IDStatusReasonStart DateExpiration DateVisits RequestedVisits [id number] sinus pressure, bilateral ear discomfort, nasal congestion, runny nose, post nasal drainage,cough with yellow/green phlegm, SOB, wheezing, fatigue. She has been sick for about 1 week. She hasbeen taking Mucinex sinus and cold. She feels she is getting worse. ReasonOnset DateCommentsMed Mcnnaz8412/03/2024ReasonOnset DateCommentsMed Refill 01/01/2025ReasonCommentsMedication ProblemShe is having a hard time getting her Sp[facility] from [facility] - she has tried online to refill but has notheard from them - she has not tried to call them though. She is not out of the med yet.Med Refill Albuterol for neb, magnesium, she cannot get the Air Duo so would like to discuss something in place of that.ReasonOnset DateCommentsMed Dapsnd3906/17/2025 ReasonOnset DateCommentsMed Xanoiv0107/07/2025 INFORMATION SOURCE (unrecogn ized section and content) DATE CREATED AUTHOR 02/07/[address] [facility] DATE CREATED AUTHOR AUTHOR'S ORGANIZ ATION 09/07/2024 [facility] DATE CREATED AUTHOR AUTHOR'S ORGANIZ ATION 09/11/2024 [facility] DATE CREATED AUTHOR AUTHOR'S ORGANIZ ATION 10/03/2024 [facility] DATE CREATED AUTHOR AUTHOR'S ORGANIZ ATION 10/15/2024 [facility] DATE CREATED AUTHOR AUTHOR'S ORGANIZ ATION 05/16/2025 [facility] EPIC Care Teams (unrecognized sec tion and content) Team MemberRelationshipSpecialtyStart DateEnd Date Jeremias Lopez MD [address] [facility] [address] [place] [address] PCP - Lyndsay TADEO09/24/21 Jeremias Lopez MD [address] [facility] [address] [place] [address] PCP - GeneralInternal Medicine01/30/23Team MemberRelationshipSpecialtyStart Date End Date Jeremias Lopez MD [address] [facility] [address] [place] [address] PCP - [place]09/24/21 Jeremias Lopez MD [address] [facility] [address] [place] [address] PCP - GeneralInternal Medicine01/30/23Team MemberRelationshipSpecialtyStart Date End Date Jeremias Lopez MD [address] [facility] [address] [place] [address] PCP - [place]09/24/21 Jeremias Lopez MD [address] [facility] [address] [place] [address] PCP - GeneralInternal Medicine01/30/23Team MemberRelationshipSpecialtyStart Date End Date Jeremias Lopez MD [address] [facility] [address] [place] [address] PCP - [place]09/24/21 Jeremias Lopez MD [address] [facility] [address] [place] [address] PCP - GeneralInternal Medicine01/30/23Team MemberRelationshipSpecialtyStart Date End Date Jeremias Lopez MD [address] [facility] [address] [place] [address] PCP - GeneralInternal Medicine04/28/24Team MemberRelationshipSpecialtyStart Date End Date Jeremias Lopez MD [address] [facility] [address] [place] [address] PCP - GeneralInternal Medicine04/28/24Team MemberRelationshipSpecialtyStart Date End Date Jeremias Lopez MD [address] [place] [address] PCP - GeneralInternal Medicine06/10/24Team MemberRelationshipSpecialtyStart Date End Date Jeremias Lopez MD [address] [place] [address] PCP - GeneralInternal Medicine06/10/24Team MemberRelationshipSpecialtyStart Date End Date Jeremias Lopez MD [address] [place] [address] PCP - GeneralInternal Medicine06/10/24Team MemberRelationshipSpecialtyStart Date End Date Jeremias Lopez MD [address] [place] [address] PCP - GeneralInternal Medicine06/10/24Team MemberRelationshipSpecialtyStart Date End Date Jeremias Lopez MD [address] [facility] [address] [place] [address] PCP - [place]09/24/21 Jeremias Lopez MD [address] [facility] [address] [place] [address] PCP - GeneralInternal Medicine01/30/23Team MemberRelationshipSpecialtyStart Date End Date Jeremias Lopez MD [address] [facility] [address] [place] [address] PCP - [place]09/24/21 Jeremias Lopez MD [address] [facility] [address] [place] [address] PCP - GeneralInternal Medicine01/30/23Team MemberRelationshipSpecialtyStart Date End Date Jeremias Lopez MD [address] [facility] [address] [place] [address] PCP - [place]/10/15 Jeremias Lopez MD [address] [facility] [address] [place] [address] PCP - GeneralInternal Medicine01/30/23Team MemberRelationshipSpecialtyStart Date End Date Jeremias Lopez MD [address] [facility] [address] [place] [address] PCP - GeneralInternal Medicine01/30/23am MemberRelationshipSpecialtyStart Date End Date Jeremias Lopez MD [address] [facility] [address] [place] [address] PCP - GeneralInternal Medicine01/30/23am MemberRelationshipSpecialtyStart Date End Date Jeremias Lopez MD [address] [facility] [address] [place] [address] PCP - GeneralInternal Medicine01/30/23am MemberRelationshipSpecialtyStart Date End Date Jeremias Lopez MD [address] [facility] [address] [place] [address] PCP - GeneralInternal Medicine01/30/23am MemberRelationshipSpecialtyStart Date End Date Jeremias Lopez MD [address] [facility] [address] [place] [address] PCP - GeneralInternal Medicine01/30/23Team MemberRelationshipSpecialtyStart Date End Date Jeremias Lopez MD [address] [facility] [address] [place] [address] PCP - GeneralInternal Medicine01/30/23Team MemberRelationshipSpecialtyStart Date End Date Jeremias Lopez MD [address] [facility] [address] [place] [address] PCP - GeneralInternal Medicine01/30/23Team MemberRelationshipSpecialtyStart Date End Date Jeremias Lopez MD [address] [facility] [address] [place] [address] PCP - GeneralInternal Medicine01/30/23Team MemberRelationshipSpecialtyStart Date End Date Jeremias Lopez MD [address] [facility] [address] [place] [address] PCP - [place]/ Jeremias Lopez MD [address] [facility] [address] [place] [address] PCP - GeneralInternal Medicine01/30/23 Ordered Prescriptions (unrec ognized section and content) PrescriptionSigDispensedRefillsStart DateEnd Date acetaminophen (TYLENOL) 500 MG tablet Take 1 tablet by mouth every 8 (eight) hours for 7 days 21 tablet oxyCODONE (ROXICODONE) 5 MG immediate release tablet Indications:Acute postoperative painTake 1 tablet by mouth every 6 hours as needed for Pain for up to 7 days. Max Daily Amount: 20 mg 28 tablet nitrofurantoin, macrocrystal-monohydrate, (MACROBID) 100 MG capsule Take 1 capsule by mouth every 12 hours for 5 doses 5 capsule methocarbamol (ROBAXIN) 750 MG tablet Take 1 tablet by mouth every 8 (eight) hours for 10 days 30 tablet 5010/09/2024 Scheduled Active and Recently Administ ered Medications (unrecognized section and content) Medication Order50 acetaminophen (TYLENOL) tablet 1,000 mg 1,000 mg, Oral, EVERY 8 HOURS SCHEDULED (3 times per day), First dose on Sun09/22/24 at 2200, Until Discontinued, Maximum dose of acetaminophen is 4000 mg from all sources in 24 hours. * 0554 (Given - Provider: Deyanira Schuster, RN) * 1300 (Given - Provider: Shantelle Laguna, RN) * 2118 (Given - Provider: Kapil Muhammad, RN - Comment: scheduled) * 0521 (Given - Provider: Kapil Muhammad RN) * 1357 (Given - Provider: Mervin Arechiga, RN) * 2031 (Given - Provider: Kapil Muhammad RN - Comment: scheduled) * 0553 (Given - Provider: Kapil Muhammad RN) * 1400 (Due) * 2200 (Due) albuterol sulfate HFA (PROVENTIL;VENTOLIN;PROAIR) 108 (90 Base) MCG/ACT inhaler 2 puff 2 puff, Inhalation, 4 TIMES DAILY RESP, First dose (after last modification) on Sun09/24/24 at 1600,Until Discontinued, Initiate RT Bronchodilator Protocol: Yes - Inpatient Protocol * 0557 (Given - Provider: Giorgi Kimball RCP) * 1136 (Given - Provider: Viviane Strong RCP) * 153 (Given - Provider: Divine Gregory RCP) * 1928 (Given - Provider: Komal Lynne RCP) * 0600 (Given - Provider: Dorothea Anand RCP) * 1032 (Given - Provider: Divine Gregory RCP) * 152 (Given - Provider: Viviane Strong RCP) * 211 (Given - Provider: Dorothea Anand RCP) * 0754 (Given - Provider: Isabella Dang RCP) * 1133 (Given - Provider: Isabella Dang RCP) * 1600 (Due) * 1999 (Due) apixaban (ELIQUIS) tablet 5 mg 5 mg, Oral, 2 TIMES DAILY, First dose on Sun09/23/24 at 0945, Until Discontinued, Indication of Use: A Fib/A Flutter, ANTICOAGULANT * 0642 (Unheld by provider - Provider: Marcela Francois MD) * 0845 (Given - Provider: Shantelle Laguna RN) * 2118 (Given - Provider: Kapil Muhammad, BROOKE) * 09 (Given - Provider: Allyson Delgado RN) * 2031 (Given - Provider: Kapil Muhammad RN) * 0814 (Given - Provider: Kathy Menendez RN) * 2099 (Due) budesonide-formoterol (SYMBICORT) 80-4.5 MCG/ACT inhaler 2 puff 2 puff, Inhalation, 2 TIMES DAILY RESP, First dose on Sun09/22/24 at 2230, Until Discontinued, Substituted for fluticasone-salmeterol (ADVAIR DISKUS or WIXELA INHUB). * 0557 (Given - Provider: Giorgi Kimball RCP) * 1927 (Given - Provider: Komal Lynne RCP) * 599 (Given - Provider: Dorothea Anand RCP) * 2111 (Given - Provider: Dorothea Anand RCP) * 075 (Given - Provider: Isabella Dang CHIEF LENDING OFFICER) * 1999 (Due) dilTIAZem injection 10 mg (COMPLETED) 10 mg, IntraVENous, ONCE, 1 dose, On 09/27/24 at 0030, Administer over at least 2 minutes. * 0020 (Given - Provider: Deyanira Schuster RN) escitalopram (LEXAPRO) tablet 20 mg 20 mg, Oral, DAILY, First dose on Sun09/22/24 at 2045, Until Discontinued * 0845 (Given - Provider: Shantelle Laguna RN) * 0906 (Given - Provider: Allyson Delgado RN) * 0814 (Given - Provider: Kathy Menendez RN) famotidine (PEPCID) tablet 20 mg 20 mg, Oral, 2 TIMES DAILY, First dose on Megan 09/25/24 at 0900, Until Discontinued * 0845 (Given - Provider: Shantelle Laguna RN) * 2119 (Given - Provider: Kapil Muhammad RN) * 0906 (Given - Provider: Allyson Delgado RN) * 203 (Given - Provider: Kapil Muhammad RN) * 0814 (Given - Provider: Kathy Menendez RN) * 2100 (Due) guaiFENesin (MUCINEX) extended release tablet 600 mg 600 mg, Oral, 2 TIMES DAILY, First dose on Sun09/25/24 at 1230, Until Discontinued, Do not crush or break. * 0845 (Given - Provider: Shantelle Laguna RN) * 2119 (Given - Provider: Kapil Muhammad RN) * 0906 (Given - Provider: Allyson Delgado RN) * 2031 (Given - Provider: Kapil Muhammad RN) * 0814 (Given - Provider: Kathy Menendez RN) * 2100 (Due) ibuprofen (ADVIL;MOTRIN) tablet 600 mg 600 mg, Oral, EVERY 6 HOURS, First dose on Sun09/29/24 at 0800, Until Discontinued * 0815 (Given - Provider: Kathy Menendez RN) * 1400 (Due) * 2000 (Due) ketorolac (TORADOL) injection 15 mg (CANCELED) 15 mg, IntraVENous, EVERY 6 HOURS, 20 doses, First dose on Sun09/25/24 at 0700, Last dose on Sun09/30/24 at 0100, Do not administer for more than 5 days. * 0021 (Given - Provider: Deyanira Schuster RN) * 0651 (Given - Provider: Deyanira Schuster RN) * 1300 (Given - Provider: Shantelle Laguna RN) * 1750 (Given - Provider: Shantelle Laguna RN) * 0047 (Given - Provider: Kapil Muhammad RN - Comment: scheduled) * 0521 (Given - Provider: Kapil Muhammad RN) * 1303 (Given - Provider: Allyson Delgado, BROOKE) * 1838 (Given - Provider: Allyson Delgado RN) * 2338 (Given - Provider: Kapil Muhammad RN) levothyroxine (SYNTHROID) tablet 88 mcg 88 mcg, Oral, DAILY, First dose on Sun09/23/24 at 0700, Until Discontinued, Tube feeding (TF) interaction, obtain physician order to manage, recommend holding TF for 30 minutes before and after dose. * 0554 (Given - Provider: Deyanira Schuster RN) * 0521 (Given - Provider: Kapil Muhammad RN) * 0553 (Given - Provider: Kapil Muhammad RN) methocarbamol (ROBAXIN) tablet 750 mg 750 mg, Oral, EVERY 6 HOURS, First dose (after last modification) on Megan 09/25/24 at 1100, Until Discontinued * 0554 (Given - Provider: Deyanira Schuster RN) * 1103 (Given - Provider: Shantelle Laguna RN) * 1740 (Given - Provider: Shantelle Laguna RN) * 0047 (Given - Provider: Kapil Muhammad RN - Comment: scheduled) * 0521 (Given - Provider: Kapil Muhammad RN) * 1053 (Given - Provider: Allyson Delgado RN) * 1704 (Given - Provider: Allyson Delgado RN) * 2339 (Given - Provider: Kapil Muhammad RN) * 0552 (Given - Provider: Kapil Muhammad RN) * 1155 (Given - Provider: Kathy Menendez RN) * 1700 (Due) * 2300 (Due) metoclopramide (REGLAN) injection 5 mg (CANCELED) 5 mg, IntraVENous, EVERY 6 HOURS, First dose on Megan 09/25/24 at 0700, Until Discontinued, IV Push: Max 10 mg over 1-2 minutes. * 0021 (Given - Provider: Deyanira Schuster RN) * 0554 (Given - Provider: Deyanira Schuster RN) metoclopramide (REGLAN) injection 5 mg (COMPLETED) 5 mg, IntraVENous, EVERY 6 HOURS, 4 doses, First dose (after last modification) on 09/27/24 at 1300, Last dose on 09/28/24 at 0700, IV Push: Max 10 mg over 1-2 minutes. * 1300 (Given - Provider: Shantelle Laguna RN) * 1750 (Given - Provider: Shantelle Laguna RN) * 0048 (Given - Provider: Kapil Muhammad RN) * 0521 (Given - Provider: Kapil Muhammad RN) metoprolol succinate (TOPROL XL) extended release tablet 25 mg 25 mg, Oral, DAILY, First dose on Sun09/23/24 at 0900, Until Discontinued, Hold for sbp less than 100 or HR less than 60 Do not crush or chew. * 0845 (Given - Provider: Shantelle Laguna RN) * 0906 (Given - Provider: Allyson Delgado, BROOKE) * 0813 (Given - Provider: Kathy Menendez, RN) nitrofurantoin (macrocrystal-monohydrate) (MACROBID) capsule 100 mg 100 mg, Oral, EVERY 12 HOURS SCHEDULED (2 times per day), 6 doses, First dose on Sun09/28/24 at 2100, Last dose on Sun10/01/24 at 0900, Antimicrobial Indications: Urinary Tract Infection, UTI duration of therapy: 3 days * 2031 (Given - Provider: Kapil Muhammad RN) * 0814 (Given - Provider: Kathy Menendez, BROOKE) * 2099 (Due) potassium chloride (KLOR-CON M) extended release tablet 20 mEq 20 mEq, Oral, 2 TIMES DAILY, First dose on Sun09/24/24 at 1100, Until Discontinued, Do not crush, chew, or suck on tablet. Tablet may also be broken in half and each half swallowed separately. * 0845 (Given - Provider: Shantelle Laguna RN) * 2119 (Given - Provider: Kapil Muhammad, BROOKE) * 09 (Given - Provider: Allyson Delgado, BROOKE) * 2031 (Given - Provider: Kapil Muhammad RN) * 0814 (Given - Provider: Kathy Menendez, RN) * 2099 (Due) sodium chloride flush 0.9 % injection 10 mL 10 mL, IntraVENous, EVERY 12 HOURS SCHEDULED (2 times per day), First dose on Sun09/22/24 at 2100,Until Discontinued * 0845 (Given - Provider: Shantelle Laguna RN) * 2119 (Given - Provider: Kapil Muhammad RN) * 09 (Given - Provider: Allyson Delgado, RN) * 2032 (Given - Provider: Kapil Muhammad RN) * 0818 (Given - Provider: Kathy Menendez, BROOKE) * 2099 (Due) tiotropium (SPIRIVA RESPIMAT) 2.5 MCG/ACT inhaler 2 puff 2 puff, Inhalation, DAILY RESP, First dose on Sun09/23/24 at 0800, Until Discontinued, Substitutedfor Tiotropium (SPIRIVA HANDIHALER). * 0557 (Given - Provider: Giorgi Kimball RCP) * 0600 (Given - Provider: Dorothea Anand RCP) * 0754 (Given - Provider: Isabella Dang RCP) Medication Order//02/2025 0.9 % sodium chloride infusion IntraVENous, at 5-250 mL/hr, PRN, if patient receiving piggyback infusions and maintenance fluids are not ordered, Starting on Sun09/22/24 at 2024, For piggyback infusion, administer at same rate aspiggyback for a total of 25 mL. Enter 25 mL into dose field and piggyback rate into rate field of order. If piggyback is infusing at a rate less than 100 mL/hr, enter 25 mL into dose field and 100 mL/hr into rate field of order. albuterol sulfate HFA (PROVENTIL;VENTOLIN;PROAIR) 108 (90 Base) MCG/ACT inhaler 2 puff 2 puff, Inhalation, EVERY 4 HOURS PRN, Starting on Sun09/22/24 at 2024, Until Discontinued, Wheezing, Initiate RT Bronchodilator Protocol: Yes - Inpatient Protocol clonazePAM (KLONOPIN) tablet 0.5 mg 0.5 mg, Oral, EVERY 8 HOURS PRN, Starting on Sun09/22/24 at 2213, Until Discontinued, Anxiety magnesium sulfate 2000 mg in 50 mL IVPB premix 2,000 mg, IntraVENous, at 25 mL/hr, Administer over 2 Hours, PRN, Other, Magnesium Replacement, Starting on Sun09/22/24 at 2024, Mag Lab Replacement Action 1.4-1.6 mg/dL 2,000 mg Total Dose Given as1,000 mg IVPB x 2 doses or 2,000 mg IVPB x 1 dose 1.0-1.3 mg/dL 4,000 mg Total Dose Given as 1,000 mg IVPB x 4 doses or 2,000 mg IVPB x 2 doses Less than 1.0 mg/dL CALL PHYSICIAN and give 4,000 mg Total Dose Given as 1,000 mg IVPB x 4 doses or 2,000 mg IVPB x 2 doses Infuse at 1,000 mg/hr Repeat Mag level 1 hour after final administration Protocol not for use in Patients with CrCl less than 30ml/min metoprolol (LOPRESSOR) injection 5 mg 5 mg, IntraVENous, EVERY 6 HOURS PRN, Starting on Sun09/22/24 at 2214, Until Discontinued, Tachycardia, Sustained heart rate greater than 120 metoprolol (LOPRESSOR) injection 5 mg 5 mg, IntraVENous, EVERY 4 HOURS PRN, Starting on Sun09/26/24 at 2222, Until Discontinued, High Blood Pressure, SBP > 150, DO NOT ADMINISTER IF HEART RATE LESS THAN 60 ondansetron (ZOFRAN) injection 4 mg(Linked Group 1) 4 mg, IntraVENous, EVERY 6 HOURS PRN, Starting on Sun09/22/24 at 2024, Until Discontinued, Nausea,Vomiting, Administer if oral route cannot be used. ondansetron (ZOFRAN-ODT) disintegrating tablet 4 mg(Linked Group 1) 4 mg, Oral, EVERY 8 HOURS PRN, Starting on Sun09/22/24 at 2024, Until Discontinued, Nausea, Vomiting oxyCODONE (ROXICODONE) immediate release tablet 5 mg(Linked Group 2) 5 mg, Oral, EVERY 6 HOURS PRN, Starting on Sun09/27/24 at 0626, Until Discontinued, Pain Severe (7-10) * 1455 (Given - Provider: Allyson Delgado RN) * 2230 (Given - Provider: Kapil Muhammad RN) * 0945 (Given - Provider: Kathy Menendez, BROOKE) simethicone (MYLICON) chewable tablet 80 mg 80 mg, Oral, EVERY 6 HOURS PRN, Starting on Sun09/25/24 at 1141, Until Discontinued, Cramping sodium chloride flush 0.9 % injection 10 mL 10 mL, IntraVENous, PRN, Starting on Sun09/22/24 at 2024, Until Discontinued, Line Care, After every IV line use sodium phosphate 18.15 mmol in sodium chloride 0.9 % 250 mL IVPB(Linked Group 3) 18.15 mmol (rounded from 18.144 mmol = 0.32 mmol/kg 56.7 kg), IntraVENous, at 41.7 mL/hr, Administer over 6 Hours, PRN, Phosphorus Replacement, Starting on Sun09/26/24 at 0700, Phos Lab Replacement Action Less than 1.6 0.32 mmol/kg IVPB x 1 (Max dose 60 mmol) 1.6-2.2 0.16 mmol/kg IVPB x 1 (Max dose 30 mmol) Recheck lab 1 hour after completion of infusion. Not for use in patients with CrCl less than 30 mL/min. sodium phosphate 9.06 mmol in sodium chloride 0.9 % 250 mL IVPB(Linked Group 3) 9.06 mmol (rounded from 9.072 mmol = 0.16 mmol/kg 56.7 kg), IntraVENous, at 62.5 mL/hr, Administer over 4 Hours, PRN, Phosphorus Replacement, Starting on Sun09/26/24 at 0700, Phos Lab Replacement Action Less than 1.6 0.32 mmol/kg IVPB x 1 (Max dose 60 mmol) 1.6-2.2 0.16 mmol/kg IVPB x 1 (Max dose 30mmol) Recheck lab 1 hour after completion of infusion. Not for use in patients with CrCl less than 30 mL/min. Order Group 1: ondansetron (ZOFRAN-ODT) disintegrating tablet 4 mgJump to med 4 mg, Oral, EVERY 8 HOURS PRN, Starting on Sun09/22/24 at 2024, Until Discontinued, Nausea, Vomiting Or ondansetron (ZOFRAN) injection 4 mgJump to med 4 mg, IntraVENous, EVERY 6 HOURS PRN, Starting on Sun09/22/24 at 2024, Until Discontinued, Nausea,Vomiting, Administer if oral route cannot be used. Group 2: oxyCODONE (ROXICODONE) immediate release tablet 5 mgJump to med 5 mg, Oral, EVERY 6 HOURS PRN, Starting on Sun09/27/24 at 0626, Until Discontinued, Pain Severe (7-10) Group 3: sodium phosphate 9.06 mmol in sodium chloride 0.9 % 250 mL IVPBJump to med 9.06 mmol (rounded from 9.072 mmol = 0.16 mmol/kg 56.7 kg), IntraVENous, at 62.5 mL/hr, Administer over 4 Hours, PRN, Phosphorus Replacement, Starting on Sun09/26/24 at 0700, Phos Lab Replacement Action Less than 1.6 0.32 mmol/kg IVPB x 1 (Max dose 60 mmol) 1.6-2.2 0.16 mmol/kg IVPB x 1 (Max dose 30mmol) Recheck lab 1 hour after completion of infusion. Not for use in patients with CrCl less than 30 mL/min. Or sodium phosphate 18.15 mmol in sodium chloride 0.9 % 250 mL IVPBJump to med 18.15 mmol (rounded from 18.144 mmol = 0.32 mmol/kg 56.7 kg), IntraVENous, at 41.7 mL/hr, Administer over 6 Hours, PRN, Phosphorus Replacement, Starting on Sun09/26/24 at 0700, Phos Lab Replacement Action Less than 1.6 0.32 mmol/kg IVPB x 1 (Max dose 60 mmol) 1.6-2.2 0.16 mmol/kg IVPB x 1 (Max dose 30 mmol) Recheck lab 1 hour after completion of infusion. Not for use in patients with CrCl less than 30 mL/min. FOR RECORDS PERTAINING TO PATIENTS WHO ARE [...] BE BASED ON THE PRIMARY CLINICAL RECORDS. [employer] provides no warranty or guarantee of the accuracy or completeness of information in this document.
[2025-07-27 12:42] LABS: Hematocrit 37.1 % (36.0-48.0); Hemoglobin 12.4 g/dL (12.0-16.0); Immature Granulocytes Abs Auto 0.03 10^3/uL (0.00-0.03); Immature Granulocytes Pct Auto 0.3 % (0.0-0.5); Lymphocytes Absolute Auto 1.5 10^3/uL (1.2-3.8); Mean Corpuscular HGB Conc 33.4 g/dL (29.9-35.2); Mean Corpuscular Hemoglobin 30.4 pg (26.7-34.0); Mean Corpuscular Volume 90.9 fL (81.0-99.0); Platelet Count 352 10^3/uL (150-450); Red Blood Count 4.08 10^6/uL (4.20-5.40); White Blood Count 10.8 10^3/uL (4.0-11.0)
[2025-07-27 12:55] LABS: Anion Gap 8.7
[2025-07-27 12:57] LABS: Alanine Aminotransferase 22 U/L (14-59); Albumin Globulin Ratio 1.0; Albumin Level 3.9 g/dL (3.4-5.0); Alkaline Phosphatase 90 U/L (46-116); Aspartate Amino Transferase 29 U/L (15-37); Blood Urea Nitrogen 4.0 mg/dL (7.0-18.0); Calcium 9.9 mg/dL (8.5-10.1); Carbon Dioxide 32.9 mmol/L (21.0-32.0); Chloride 95 mmol/L (98-107); Estimated GFR (African America >60 (>=60 mL/min/1.73m^2); Estimated GFR (Non-African Ame >60 (>=60 mL/min/1.73m^2); Globulin 3.8 g/dL; Glucose 112 mg/dL (74-106); Lactate/Lactic Acid 0.9 mmol/L (0.4-2.0); Potassium 4.6 mmol/L (3.5-5.1); Sodium 132 mmol/L (136-145); Total Protein 7.7 g/dL (6.4-8.2)
[2025-07-27 13:00] LABS: INR 0.98; Prothrombin Time 10.4 sec (9.0-11.6)
--- NOTE | 2025-07-27 13:33 | ED_ITS ---
HPI HPI - General Adult General Chief complaint: Shortness of Breath/Dyspnea Stated complaint: FAST HEART RATE, SOB Time Seen by Provider: 07/27/25 12:19 Source: patient and family Mode of arrival: Wheelchair Limitations: no limitations History of Present Illness HPI narrative: The patient is a 70-year-old female with history of COPD as well as recently been diagnosed with small bowel obstruction with colostomy bag, presenting to the ER with the main concern that she had her Fitbit recording tachycardia at night The patient does have a history of A-fib but it is mostly regulated and she is taking her Eliquis The patient also mentioned that her breathing has been difficult a little bit more than usual she is using her baseline 2 L nasal cannula at the moment There is no increase in the cough there is no fever chills or any other concerns Related Data Home Medications ?Medication ?Instructions ?Recorded ?Confirmed albuterol sulfate 90 mcg/actuation 2 inh inhalation Q4 H PRN shortness 09/10/23 07/27/25 aerosol inhaler of breath or wheezing clonazepam 0.5 mg tablet 0.5 mg PO Q8H PRN anxiety 07/27/25 escitalopram oxalate 20 mg tablet 20 mg PO DAILY 09/1007/27/25 levothyroxine 88 mcg tablet 88 mcg PO DAILY 09/10/23 1 09/26/24 metoprolol succinate 25 mg 25 mg PO DAILY 09/10/2312/16 tablet,extended release 24 hr apixaban 5 mg tablet (Eliquis) 5 mg PO Q12H 06/06/24 1 09/26/24 magnesium oxide 400 mg (241.3 mg 400 mg PO DAILY 06/0607/27/25 magnesium) tablet tramadol 50 mg tablet 50 mg PO Q8H 06/06/24 brexpiprazole 0.25 mg tablet 0.25 mg PO DAILY 07/27/25 07/27/25 (Rexulti) Previous Rx's ?Medication ?Instructions ?Recorded albuterol sulfate 2.5 mg/3 mL 2.5 mg (3 mL) inhalation Q4H PRN 09/12/23 (0.083 %) solution for nebulization shortness of breat h or wheezing #90 mL tiotropium bromide 2.5 2 inh inhalation DAILY 30 da ys #4 09/12/23 mcg/actuation mist for inhalation grams (Spiriva Respimat) doxycycline hyclate 100 mg capsule 100 mg PO BID 7 day s #14 caps 07/27/25 prednisone 20 mg tablet 40 mg (2 x 20 mg) PO DAILY 5 days 07/27/25 #10 tabs Allergies Allergy/AdvReac Type Severity Reaction Status Date / Time No Known Drug Allergies Allergy Verified 07/27/25 12:14 Opioid HPI Opioid Management Most Recent Opioid Data: Last Pain Scale 8 Today, 12:14 Review of Systems ROS Status of ROS 10 or more systems reviewed and unremark able except as noted in history and below [facility] Medical History (Updated 07/27/25 @ 16:31 by Kandis South MD) Tobacco dependence ?F17.200 - Nicotine dependence, unspecified, uncomplicated (ICD-10) Depression with anxiety ?F41.8 - Other specified anxiety disorders (ICD-10) COPD (chronic obstructive pulmonary disease) ?J44.9 - Chronic obstructive pulmonary disease, unspecified (ICD-10) Hypertension ?I10 - Essential (primary) hypertension (ICD-10) Hypothyroid ?E03.9 - Hypothyroidism, unspecified (ICD-10) Social History Highest level of school completed/degree received: some college, no degree Little interest or pleasure in doing things: not at all Feeling down, depressed, or hopeless: not at all Exam Narrative Exam Narrative: Nurses notes and vital signs reviewed and patient is not hypoxic. General: Well-appearing and in no apparent distress. Skin: Warm, dry, no pallor noted. No rash. Head: Normocephalic, atraumatic. Neck: Supple, non-tender. Eye: Pupils are equal, round and EOMI. No scleral icterus. Ears, Nose, Mouth, and Throat: TM are clear, no nasal mucosal hypertrophy. Oral mucosa is moist, no posterior oropharynx erythema, uvula is mid-line Cardiovascular: Regular Rate and Rhythm without murmur, gallop or rub. Respiratory: No accessory muscle use or respiratory distress. Lungs distant breathing sound bilaterally but there is expiratory lung wheezes bilaterally Musculoskeletal: normal ROM, no calf or popliteal tenderness, no lower extremity edema/swelling GI: Abdomen is soft, non-distended. Normal bowel sounds. No masses appreciated. The patient has a colostomy bag in the left lower abdomen there is no tenderness around it and there is formed stool inside Neurological: A&O x4. No cranial nerve dysfunction observed. No truncal ataxia. Constitutional Vital Signs, click to edit/add: Last Vital Signs Temp 97.5 F L 07/27/25 12:14 Pulse 95 H 07/27/25 16:40 Resp 27 H 07/27/25 16:40 BP 133/82 07/27/25 12:23 Pulse Ox 94 L 07/27/25 16:40 O2 Del Method Nasal Cannula 07/27/25 14:37 O2 Flow Rate 2 07/27/25 14:37 Course Vital Signs Vital signs: Vital Signs Temperature 97.5 F L 07/27/25 12:14 Pulse Rate 96 H 07/27/25 12:14 Respiratory Rate 26 H 07/27/25 12:14 Blood Pressure 136/93 H 07/27/25 12:14 Pulse Oximetry 88 L 07/27/25 12:14 Oxygen Delivery Method Nasal Cannula 07/27/25 12:14 Oxygen Delivery Flow Rate 2 07/27/25 12:14 Temperature 97.5 F L 07/27/25 12:14 Pulse Rate 95 H 07/27/25 16:40 Respiratory Rate 27 H 07/27/25 16:40 Blood Pressure 133/82 07/27/25 12:23 Pulse Oximetry 94 L 07/27/25 16:40 Oxygen Delivery Method Nasal Cannula 07/27/25 14:37 Oxygen Delivery Flow Rate 2 07/27/25 14:[address] Medical Decision [address] [facility] Narrative Medical decision making narrative: The patient EKG in the ER showing sinus rhythm with a heart rate of [address] elevation or depression Troponin was negative twice X-ray showed no acute pathology It was noted that the patient have some exacerbation of her COPD although she is still at her baseline 2 L nasal cannula she was provided with a breathing treatment as well as Solu-Medrol after which she was feeling better discharged home with doxycycline and prednisone to continue breathing treatment with the machine at home every 6 hours The patient CBC and chemistry showed no acute significant pathology It was noted that the patient have a history of A-fib and her heart tachycardia at night could be secondary to the A-fib as well and I 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 in [facility] and she will be set to follow-up with her as outpatient for Holter monitor possibly in case this continues although right now her tachycardia could be secondary her exacerbation of COPD at night No indication for admission the moment and the patient feeling much better she at her baseline 2 L nasal cannula she never been hypoxemic in the ER and her baseline oxygen and her ABGs here showed compensated hyper capnia The patient to follow-up with the primary care within 2 to 3 days and to come back to the ER in case of any worsening of the current symptoms or any new symptoms or concerns Lab Data Labs: Lab Results 07/27/25 07/27/25 07/27/25 Range/Units 12:30 13:47 14:28 WBC 10.8 (4.0-11.0) 10^3/uL RBC 4.08 L (4.20-5.40) 10^6/uL Hgb 12.4 (12.0-16.0) g/dL Hct 37.1 (36.0-48.0) % MCV 90.9 (81.0-99.0) fL MCH 30.4 (26.7-34.0) pg MCHC 33.4 (29.9-35.2) g/dL RDW 12.6 (11.0-15.0) % Plt Count 352 (150-450) 10^3/uL MPV 9.4 L (9.5-13.5) fL Neut % (Auto) 73.6 (43.0-75.0) % Lymph % (Auto) 13.4 L (20.5-60.0) % [place] % (Auto) 12.1 H (1.7-12.0) % Eos % (Auto) 0.3 L (0.9-7.0) % Baso % (Auto) 0.3 (0.2-2.0) % Neut # (Auto) 8.0 H (1.4-6.5) 10^3/uL Lymph # (Auto) 1.5 (1.2-3.8) 10^3/uL [place] # (Auto) 1.3 H (0.3-0.8) 10^3/uL Eos # (Auto) 0.0 (0.0-0.7) 10^3/uL Baso # (Auto) 0.0 (0.0-0.1) 10^3/uL Abs Immat Gran (auto) 0.03 (0.00-0.03) 10^3/uL Imm/Tot Granulo (auto) 0.3 (0.0-0.5) % PT 10.4 (9.0-11.6) sec INR 0.98 D-Dimer 0.22 (<=0.59) mg/L FEU Puncture Site L radial ABG pH 7.407 (7.350-7.450) ABG pCO2 53.8 H* (35.0-45.0) mmHg ABG pO2 72.4 L (80.0-100.0) mmHg ABG HCO3 33.8 H (22.0-26.0) mmol/L ABG O2 Saturation 95.6 % ABG Base Excess 9.2 H (-2.0-2.0) mmol/L Nasir Test Positive (POSITIVE) O2 Liters/Min 2 FiO2 28 % Sodium 132 L (136-145) mmol/L Potassium 4.6 (3.5-5.1) mmol/L Chloride 95 L (98-107) mmol/L Carbon Dioxide 32.9 H (21.0-32.0) mmol/L Anion Gap 8.7 BUN 4.0 L (7.0-18.0) mg/dL Creatinine 0.49 L (0.55-1.02) mg/dL Est GFR ( Amer) >60 (>=60 mL/min/1.73m^2) Est GFR (Non-Af Amer) >60 (>=60 mL/min/1.73m^2) BUN/Creatinine Ratio 8.2 Glucose 112 H (74-106) mg/dL Lactate 0.9 (0.4-2.0) mmol/L Calcium 9.9 (8.5-10.1) mg/dL Total Bilirubin 0.4 (0.2-1.0) mg/dL AST 29 (15-37) U/L ALT 22 (14-59) U/L Alkaline Phosphatase 90 (46-116) U/L Troponin I High Sens 5.5 5.1 (4.0-51.3) pg/mL Total Protein 7.7 (6.4-8.2) g/dL Albumin 3.9 (3.4-5.0) g/dL Globulin 3.8 g/dL Albumin/Globulin Ratio 1.0 Discharge Plan Discharge Chief Complaint: Shortness of Breath/Dyspnea Clinical Impression: Tachycardia, Asthma with acute exacerbation Patient Disposition: Home, Self-Care Time of Disposition Decision: 15:12 Condition: Good Mode of Transportation: Private Vehicle Prescriptions / Home Meds: New prednisone 20 mg tablet 40 mg PO DAILY 5 Days Qty: 10 0RF doxycycline hyclate 100 mg capsule 100 mg PO BID 7 Days Qty: 14 0RF No Action clonazepam 0.5 mg tablet 0.5 mg PO Q8H PRN (Reason: anxiety) levothyroxine 88 mcg tablet 88 mcg PO DAILY metoprolol succinate 25 mg tablet extended release 24 hr 25 mg PO DAILY albuterol sulfate 90 mcg/actuation HFA aerosol inhaler 2 inh INHALATION Q4H PRN (Reason: shortness of breath or wheezing) escitalopram oxalate 20 mg tablet 20 mg PO DAILY Spiriva Respimat 2.5 mcg/actuation mist 2 inh inhalation DAILY 30 Days Qty: 4 0RF albuterol sulfate 2.5 mg /3 mL (0.083 %) solution for nebulization 2.5 mg inhalation Q4H PRN (Reason: shortness of breath or wheezing) Qty: 90 0RF Eliquis 5 mg tablet 5 mg PO Q12H magnesium oxide 400 mg (241.3 mg magnesium) tablet 400 mg PO DAILY tramadol 50 mg tablet 50 mg PO Q8H Rexulti 0.25 mg tablet 0.25 mg PO DAILY Print Language: Bermudian Instructions: Chronic Lung Disease and Infection Prevention (ED), Tachycardia (ED) Referrals: JEREMIAS LOW [Primary Care Provider, Internal Medicine] - 1 week Komal Bronson MD [Physician] - As soon as possible Referral Note: Please call to make an appointment for Holter monitor if you keep having symptoms Discharge Date/Time: 07/27/25 16:40
[2025-07-27] MEDS: IPRATROPIUM/ALBUTEROL SULFATE 3 ML AMPUL.NEB IH (14:19)
[2025-07-27 14:37] LABS: Allen Test POSITIVE (POSITIVE); HCO3 ABG 33.8 mmol/L (22.0-26.0); Liters per Minute 2; O2 Mode NASAL CANNULA; Oxygen Saturation ABG 95.6 %; PO2 ABG 72.4 mmHg (80.0-100.0); Puncture Site L RADIAL
[2025-07-27 14:39] LABS: ABG PCO2 53.8 mmHg (35.0-45.0)
[2025-07-27] MEDS: METHYLPREDNISOLONE SOD SUCC PF 125 MG/2 ML VIAL IVP (15:49)
== END 2025-07-27 16:40 | disposition home or self-care (01) ==
PROVIDERS: Emergency Provider Emergency Medicine; PCP Internal Medicine
DX: R00.0 Tachycardia, unspecified (principal); J44.1 Chronic obstructive pulmonary disease with (acute) exacerbation; Z93.3 Colostomy status; I48.91 Unspecified atrial fibrillation; Z79.01 Long term (current) use of anticoagulants; Z99.81 Dependence on supplemental oxygen; R06.02 Shortness of breath
CPT/HCPCS: 36415; 36600; 71045; 80053; 82805; 83605; 84484; 85025; 85378; 85610; 93005; 94640; 96374; 99285; J2919